=== PATIENT | female | born 1980 | race African-American/Black ===

== ENCOUNTER 2016-11-29 16:03 | Observation (INO) | payer MEDICAID, OTHER ==
[2016-11-29] MEDS ORDERED: Aspirin Low Dose CHEW TAB* 81 MG PO ONE (16:05)
[2016-11-29] MEDS ORDERED: Morphine INJ* 4 MG/ML 1 ML SYRINGE IV ONE (16:17)
[2016-11-29] MEDS ORDERED: Ondansetron INJ* 2 MG/ML VIAL IV ONE (16:17)
[2016-11-29] MEDS ORDERED: NS 0.9% 1000 ML* 1,000 ML IV ONE (16:17)
--- NOTE | 2016-11-29 16:28 | RAD ---
INDICATION: Chest pain COMPARISON: June 13, 2016 TECHNIQUE: An AP portable view obtained at 1615 hours is submitted. FINDINGS: Bones/Soft Tissues: There are no acute bony findings. Cardiomediastinal: The cardiomediastinal silhouette is normal. Lungs: There are no infiltrates. Pleura: There are no pleural effusions. Other: None IMPRESSION: NO ACTIVE DISEASE.
[2016-11-29 16:54] LABS: Hematocrit 35 % (35-47); Hemoglobin 11.5 g/dl (12.0-16.0); Mean Corpuscular HGB Conc 33 g/dl (31-36); Mean Corpuscular Hemoglobin 26 pg (27-31); Mean Corpuscular Volume 80 fL (80-97); Mean Platelet Volume 7 um3 (7.4-10.4); Red Blood Count 4.37 10^6/ul (4.0-5.4); Red Cell Distribution Width 15 % (10.5-15); White Blood Count 19.1 10^3/ul (3.5-10.8)
[2016-11-29 17:08] LABS: ALT 11 U/L (7-52); Albumin 3.2 g/dL (3.2-5.2); Alkaline Phosphatase 127 U/L (34-104); BUN/Creatinine Ratio 16.7 (8-20); Blood Urea Nitrogen 9 mg/dL (6-24); CO2 Carbon Dioxide 26 mmol/L (22-32); Calcium 9.1 mg/dL (8.6-10.3); Chloride 102 mmol/L (101-111); EGFR African American 166.2 (>60); EGFR Non-African American 129.2 (>60); Globulin 4.4 g/dL (2-4); Glucose 187 mg/dL (70-100); Sodium 134 mmol/L (133-145); Total Protein 7.6 g/dL (6.4-8.9)
[2016-11-29 17:10] LABS: Troponin I 0.01 ng/mL (<0.04)
[2016-11-29] MEDS ORDERED: Iodixanol* (CONTRAST) 320 MG/ML 100 ML SDV IV ONE (17:11)
[2016-11-29] MEDS ORDERED: Iodixanol 320 (CONTRAST) 100 ML SDV IV ONE (17:52)
--- NOTE | 2016-11-29 18:08 | RAD ---
INDICATION: Chest pain. Short of breath. Evaluate for pulmonary embolus. COMPARISON: Chest x-ray same date TECHNIQUE: Axial source images were obtained from the thoracic inlet to the hemidiaphragms following administration of 96 mL cc Visipaque 320. The ejection was repeated (injection of 96 mL of Visipaque 320 ) due to suboptimal pulmonary arterial opacification in this patient with a stated weight of [address] angiographic technique was utilized. Coronal and sagittal reconstructed images were acquired. CHEST FINDINGS: Neck/thyroid: The visualized neck to include the thyroid appear normal. Chest wall: There are no acute abnormalities of the bony thorax or chest wall. There is no supraclavicular, infraclavicular, or axillary lymphadenopathy. Lungs : There are no pulmonary parenchymal masses or infiltrates. The pulmonary interstitium appears normal. There are no endobronchial lesions. Cardiomediastinal structures: Pulmonary arterial opacification is suboptimal despite repeat injection. There are no central PE. The heart is normal in size. There is no pericardial effusion. There is no evidence of aortic aneurysm or dissection. There is no mediastinal or hilar adenopathy. The esophagus appears normal. Pleura : There are no pleural-based masses or effusions. Other: None. IMPRESSION: Mildly Limited examination due to patient size. No pulmonary emboli are identified. Lungs clear
--- NOTE | 2016-11-29 19:40 | ED ---
I, DoctorMinal, scribed for Nellie Smith MD on 11/29/16 at 1641 . HPI Chest Pain - HPI Summary HPI Summary: 36 year old female arrived to [facility] c/o migraines for four days and chest pain beginning 45 minutes ago. She reports that her migraines have been constant and worse than normal (she typically takes Fioricet for her migraines but has not taken any recently). She rates her pain as 9/10. Additionally, her chest pain is located in the middle of her chest and radiates to her back and the top of her left arm; she reports SOB as well. She denies any leg or calf pain. She just recently moved here from [place] and lives in a mental health home (PMHx of depression, PTSD, and borderline personality disorder). She has FHx of DM and heart failure before age 55 (mother), heart disease dx at age 36 (mother), blood clots (mother), and pacemaker (father). She also has a PMHx of DM, Migraines, HLD, Vasculitis (for which she regularly takes immunosuppressants), but no PMHx of HTN. She is a regular every day smoker (1/2 ppd). - History of Current Complaint Chief Complaint: EDChestPainROMI Time Seen by Provider: 11/29/16 16:06 Hx Obtained From: Patient Onset/Duration: Started Minutes Ago - chest pain started 45 minutes ago, Started Days Ago - migraines started 4 days ago, Still Present Timing: Constant Initial Severity: Moderate Current Severity: Moderate Pain Intensity: 9 Pain Scale Used: 0-10 Numeric Chest Pain Location: Mid Sternal Chest Pain Radiates To:: Back, Shoulder - left shoulder Alleviating Factor(s): Nothing Associated Signs and Symptoms: Positive: Chest Pain, Headaches - migraines, Shortness of Breath. Negative: Fever, Calf Pain/Swelling - Additional Pertinent History Primary Care Physician: [id number] - Allergy/Home Medications Allergies/Adverse Reactions: Allergies Allergy/AdvReac Type Severity Reaction Status Date / Time Asenapine Allergy Rash Verified 11/29/16 16:12 Bee Venom Allergy Anaphylatic Verified 11/29/16 16:12 Shock Nalbuphine [From Nubain] Allergy Rash Verified 11/29/16 16:12 Paroxetine [From Paxil] Allergy Vomiting Verified 11/29/16 16:12 Sulfa Antibiotics Allergy Unknown Verified 11/29/16 16:12 Reaction Details Sulfamethoxazole Allergy Unknown Verified 11/29/16 16:12 w/Trimethoprim Reaction [From Bactrim] Details Tramadol Allergy Rash Verified 11/29/16 16:12 zepeda Allergy Nausea And Uncoded 11/29/16 16:12 Vomiting PMH/Surg Hx/FS Hx/Imm Hx Endocrine/Hematology History: Reports: Hx Diabetes Cardiovascular History: Reports: Hx Angina, Hx Hypercholesterolemia, Hx Hypertension, Other Cardiovascular Problems/Disorders - vasculitis. tachycardia Denies: Hx Coronary Artery Disease, Hx Myocardial Infarction, Hx Peripheral Vascular Disease, Hx Valvular Heart Disease Respiratory History: Reports: Hx Asthma Denies: Hx Chronic Obstructive Pulmonary Disease (COPD) GI History: Reports: Hx Gastroesophageal Reflux Disease, Other GI Disorders - gastroparesis History: Reports: Other Problems/Disorders - PCOS Musculoskeletal History: Denies: Hx Arthritis, Hx Osteoporosis Sensory History: Reports: Hx Contacts or Glasses Opthamlomology History: Reports: Hx Contacts or Glasses Neurological History: Denies: Hx Headaches, Hx Seizures, Hx Transient Ischemic Attacks (TIA) Psychiatric History: Reports: Hx Anxiety, Hx Depression, Hx Post Traumatic Stress Disorder, Hx Bipolar Disorder, Other Psychiatric Issues/Disorders - Borderline Personality Disorder - Surgical History Surgery Procedure, Year, and Place: Cholecystectomy. Cardiac Catherterization Infectious Disease History: Yes Infectious Disease History: Reports: Hx of Known/Suspected MRSA Denies: Traveled Outside the [place] in Last 30 Days - Family History Known Family History: Positive: Cardiac Disease, Diabetes, Other - blood clots ( mother), pacemaker (father) - Social History Lives: Prison Alcohol Use: Rare Hx Substance Use: No Substance Use Type: Reports: None Smoking Status (MU): Heavy Every Day Tobacco Smoker Type: Cigarettes Amount Used/How Often: 1/2 pack q day Have You Smoked in the Last Year: Yes Review of Systems Negative: Fever Positive: Chest Pain Positive: Shortness Of Breath Positive: Other - No leg pain Positive: Headache - migraines All Other Systems Reviewed And Are Negative: Yes Physical Exam Triage Information Reviewed: Yes Vital Signs On Initial Exam: Initial Vitals Temp Pulse Resp BP Pulse Ox 98.1 F 91 18 111/72 100 11/29/16 16:09 11/29/16 16:09 11/29/16 16:09 11/29/16 16:11/29/16 16:09 Vital Signs Reviewed: Yes Appearance: Positive: Well-Appearing, No Pain Distress Skin: Positive: Warm, Skin Color Reflects Adequate Perfusion, Dry Eyes: Positive: EOMI, RICO ENT: Positive: Pharynx normal, TMs normal Neck: Positive: Supple, Nontender Respiratory/Lung Sounds: Positive: Clear to Auscultation, Breath Sounds Present. Negative: Rales, Rhonchi, Wheezes Cardiovascular: Positive: RRR. Negative: Murmur, Rub, Leg Edema Left, Leg Edema Right Abdomen Description: Positive: Nontender, Soft. Negative: Distended, Guarding Bowel Sounds: Positive: Present Musculoskeletal: Positive: Normal, Strength/ROM Intact. Negative: Edema Left, Edema Right Neurological: Positive: Sensory/Motor Intact, Alert, Oriented to Person Place, Time, CN Intact II-III Psychiatric: Positive: Normal, Affect/Mood Appropriate Diagnostics - Vital Signs Vital Signs Temp Pulse Resp BP Pulse Ox 11/29/16 16:09 98.1 F 91 18 111/72 100 - Laboratory Lab Results: Lab Results 11/29/16 11/29/16 11/29/16 Range/Units 16:45 16:45 16:45 WBC 19.1 H (3.5-10.8) 10^3/ul RBC 4.37 (4.0-5.4) 10^6/ul Hgb 11.5 L (12.0-16.0) g/dl Hct 35 (35-47) % MCV 80 (80-97) fL MCH 26 L (27-31) pg MCHC 33 (31-36) g/dl RDW 15 (10.5-15) % Plt Count 408 (150-450) 10^3/ul MPV 7 L (7.4-10.4) um3 Neut % (Auto) 67.7 (38-83) % Lymph % (Auto) 24.5 L (25-47) % [place] % (Auto) 5.2 (1-9) % Eos % (Auto) 1.4 (0-6) % Baso % (Auto) 1.2 (0-2) % Absolute Neuts (auto) 13.0 H (1.5-7.7) 10^3/ul Absolute Lymphs (auto) 4.7 (1.0-4.8) 10^3/ul Absolute Monos (auto) 1.0 H (0-0.8) 10^3/ul Absolute Eos (auto) 0.3 (0-0.6) 10^3/ul Absolute Basos (auto) 0.2 (0-0.2) 10^3/ul Absolute Nucleated RBC 0.01 10^3/ul Nucleated RBC % 0 Sodium 134 (133-145) mmol/L Potassium TNP Chloride 102 (101-111) mmol/L Carbon Dioxide 26 (22-32) mmol/L Anion Gap TNP BUN 9 (6-24) mg/dL Creatinine 0.54 (0.51-0.95) mg/dL Est GFR ( Amer) 166.2 (>60) Est GFR (Non-Af Amer) 129.2 (>60) BUN/Creatinine Ratio 16.7 (8-20) Glucose 187 H (70-100) mg/dL Lactic Acid 1.5 (0.5-2.0) mmol/L Calcium 9.1 (8.6-10.3) mg/dL Total Bilirubin 0.20 (0.2-1.0) mg/dL AST TNP ALT 11 (7-52) U/L Alkaline Phosphatase 127 H (34-104) U/L Troponin I 0.01 (<0.04) ng/mL Total Protein 7.6 (6.4-8.9) g/dL Albumin 3.2 (3.2-5.2) g/dL Globulin 4.4 H (2-4) g/dL Albumin/Globulin Ratio 0.7 L (1-3) Beta HCG, Quant 0.68 mIU/mL 11/29/16 Range/Units 18:29 WBC (3.5-10.8) 10^3/ul RBC (4.0-5.4) 10^6/ul Hgb (12.0-16.0) g/dl Hct (35-47) % MCV (80-97) fL MCH (27-31) pg MCHC (31-36) g/dl RDW (10.5-15) % Plt Count (150-450) 10^3/ul MPV (7.4-10.4) um3 Neut % (Auto) (38-83) % Lymph % (Auto) (25-47) % Bond % (Auto) (1-9) % Eos % (Auto) (0-6) % Baso % (Auto) (0-2) % Absolute Neuts (auto) (1.5-7.7) 10^3/ul Absolute Lymphs (auto) (1.0-4.8) 10^3/ul Absolute Monos (auto) (0-0.8) 10^3/ul Absolute Eos (auto) (0-0.6) 10^3/ul Absolute Basos (auto) (0-0.2) 10^3/ul Absolute Nucleated RBC 10^3/ul Nucleated RBC % Sodium (133-145) mmol/L Potassium 3.6 Chloride (101-111) mmol/L Carbon Dioxide (22-32) mmol/L Anion Gap BUN (6-24) mg/dL Creatinine (0.51-0.95) mg/dL Est GFR ( Amer) (>60) Est GFR (Non-Af Amer) (>60) BUN/Creatinine Ratio (8-20) Glucose (70-100) mg/dL Lactic Acid (0.5-2.0) mmol/L Calcium (8.6-10.3) mg/dL Total Bilirubin (0.2-1.0) mg/dL AST 11 L ALT (7-52) U/L Alkaline Phosphatase (34-104) U/L Troponin I (<0.04) ng/mL Total Protein (6.4-8.9) g/dL Albumin (3.2-5.2) g/dL Globulin (2-4) g/dL Albumin/Globulin Ratio (1-3) Beta HCG, Quant mIU/mL Result Diagrams: 11/29/16 16:45 11/29/16 18:29 Lab Statement: Any lab studies that have been ordered have been reviewed, and results considered in the medical decision making process. - Radiology CXR Radiology Interpretation Completed By: Radiologist - IMPRESSION: NO ACTIVE DISEASE. - CT Chest CTA CT Interpretation Completed By: Radiologist - IMPRESSION: Mildly Limited examination due to patient size. No pulmonary emboli are identified. Lungs clear - EKG 16:38 Cardiac Rate: NL - 92 bpm EKG Rhythm: Sinus Rhythm - normal ST Segment: Normal Ectopy: None Re-Evaluation - Re-Evaluation First Eval Re-Evaluation Time: 19:21 Change: Unchanged - Discussed care with pt, pt agrees to be admitted Comment: Discussed care with pt, pt agrees to be admitted Chest Pain Course/Dx - Course Course Of Treatment: 36 yo female with known hx of leukocytosis with cp , cta neg talked with Kev about obv for troponins - Diagnoses Provider Diagnoses: Chest pain - Provider Notifications Discussed Care Of Patient With: 19:06 - Discussed care of pt with Dr. Angulo ( Hospitalist); he agrees to admit her. Discharge - Discharge Plan Condition: Stable Disposition: ADMITTED TO [facility] Referrals: No Primary Care Phys,NOPCP [Primary Care Provider] - The documentation as recorded by the Doctor ruelas Tahera accurately reflects the service I personally performed and the decisions made by me, Nellie Smith MD.
--- NOTE | 2016-11-29 19:44 | HP ---
H&P (Free Text) History and Physical: PCP: none Date/Time of Evaluation: 11/29/20161944 CC: chest pain HPI: Mrs Leigh is a 36YO super morbidly obese female HX poorly controlled DM2, high risk cNST 05/2017, HTN, HLD, & active smoking presents with onset of non- exertional sharp and pressure-like chest pain associated with SOB, nausea without emesis, mild light-headedness, mild palpitations, and sweats. There are no known exacerbating factors, getting up & moving does not worsen. The pain medication given in the ED (4mg morphine) helped, but has not entirely relieved the pain. Work up reveals stable vitals. Labs are notable for WBCs of 19k 67% neutrophils , but otherwise reasonably normal. Troponin is 0.01. ECG and CXR are benign. PMedHx DM2 w/ gastroparesis, poorly controlled HTN HLD vasculitis on immunosuppressives super morbidly obese borderline personality disorder migraines IBS anxiety depression PTSD Allergies Asenapine Allergy (Verified 11/29/16 16:12) Rash Bee Venom Allergy (Verified 11/29/16 16:12) Anaphylatic Shock Nalbuphine [From Nubain] Allergy (Verified 11/29/16 16:12) Rash Paroxetine [From Paxil] Allergy (Verified 11/29/16 16:12) Vomiting Sulfa Antibiotics Allergy (Verified 11/29/16 16:12) Unknown Reaction Details triggers vasculitis Sulfamethoxazole w/Trimethoprim [From Bactrim] Allergy (Verified 11/29/16 16:12) Unknown Reaction Details triggers vasculitis Tramadol Allergy (Verified 11/29/16 16:12) Rash zepeda Allergy (Uncoded 11/29/16 16:12) Nausea And Vomiting Ambulatory Orders Acetaminophen TAB* [Tylenol TAB*] 650 mg PO Q4H PRN 06/01/16 Aspirin EC Low Dose* [Ecotrin EC Low Dose 81 MG*] 81 mg PO QAM 06/01/16 Epinephrine [Epipen 2-Amos] 0.3 mg IM ONCE PRN 06/01/16 Insulin Lispro [Humalog Kwikpen] 0 - 100 unit SUBCUT AC 06/01/16 LoraTADine TAB(NF) [Claritin 10 MG TAB(NF)] 10 mg PO QAM 06/01/16 Multiple Vitamins W/ Minerals [Hair Skin and Nails Formu] 1 tab PO QAM 06/01/16 Multivitamins/Minerals TAB* [Theragran/minerals TAB*] 1 tab PO QAM 06/01/16 Levalbuterol HFA INHALER* [Xopenex Hfa Inhaler*] 2 puff INH Q6H PRN #1 mdi 06/03 Metoprolol Tartrate TAB* [Lopressor TAB*] 50 mg PO BID #60 tab 06/03/16 Mycophenolate Mofetil TAB(*) [Cellcept TAB(*)] 1,500 mg PO BID #90 tab 06/03/16 predniSONE TAB* [Deltasone TAB*] 10 mg PO DAILY #30 06/03/16 Atorvastatin* [Lipitor 40 MG*] 40 mg PO 2100 #30 tab 06/10/16 Mirtazapine 45 mg PO BEDTIME #30 tab 06/10/[address] CAP* [Cymbalta CAP*] 90 mg PO BID 11/29/16 Gabapentin CAP(*) [Neurontin 300 CAP(*)] 600 mg PO TID 11/29/16 Haldol TAB* 1 mg PO Q6H PRN 11/29/16 Lantus(*) 60 unit SUBCUT QAM 11/29/16 Lantus(*) 60 unit SUBCUT QPM 11/29/16 Pantoprazole TAB (NF) 40 tab PO DAILY 11/29/16 Prazosin CAP* [Minipress CAP*] 5 mg PO BEDTIME 11/29/16 cloNIDine TAB* 0.1 mg PO BID PRN 11/29/16 PSurgHx cholecystectomy SocHx: 1/4PPD cigarettes, minimal alcohol, denies recreational drugs; moved back to a assisted in the area 3 days ago to be closer to her family; full code status FamHx: Mother: CHF; Father: pacemaker ROS: no F/C, rash, cough, congestion, B/U/F of urine, otherwise reviewed and all were negative Constitutional: NAD, normally developed, super morbidly obese white female vitals: Vital Signs Temp 36.7 C 11/29/16 16:09 Pulse 86 11/29/16 19:36 Resp 16 11/29/16 19:36 BP 121/71 11/29/16 19:36 Pulse Ox 98 11/29/16 19:36 Intake & Output 11/28/16 11/29/16 11/29/16 23:59 11:59 23:59 Weight 167.829 kg HEENM: atraumatic; sclera/conjunctiva: non-icteric/clear; hearing: clinically intact; oropharynx: clear, mucosa moist Neck: soft tissue: non-tender; thyroid: normal Pulmonary: clear to auscultation bilaterally, good aeration, no accessory muscle use CV: RR/RR, normal S1S2, no carotid bruit, no jugular venous distention, 2+ B DP/ PT, no edema Abdominal: soft, non-distended, non-tender, no rebound/guarding/rigidity, normoactive bowel sounds, no hepatosplenomegaly or masses, no costovertebral angle tenderness Musculoskeletal: general: grossly intact; gait: stable Integumental: normal appearance and texture of exposed skin Psychiatric orientation: AA&O to PPS affect: calm mood: cooperative eye contact: fair content: reliable responses: timely insight: good Testing: Lab Results 11/29/16 11/29/16 11/29/16 Range/Units 16:45 16:45 16:45 WBC 19.1 H (3.5-10.8) 10^3/ul RBC 4.37 (4.0-5.4) 10^6/ul Hgb 11.5 L (12.0-16.0) g/dl Hct 35 (35-47) % MCV 80 (80-97) fL MCH 26 L (27-31) pg MCHC 33 (31-36) g/dl RDW 15 (10.5-15) % Plt Count 408 (150-450) 10^3/ul MPV 7 L (7.4-10.4) um3 Neut % (Auto) 67.7 (38-83) % Lymph % (Auto) 24.5 L (25-47) % [place] % (Auto) 5.2 (1-9) % Eos % (Auto) 1.4 (0-6) % Baso % (Auto) 1.2 (0-2) % Absolute Neuts (auto) 13.0 H (1.5-7.7) 10^3/ul Absolute Lymphs (auto) 4.7 (1.0-4.8) 10^3/ul Absolute Monos (auto) 1.0 H (0-0.8) 10^3/ul Absolute Eos (auto) 0.3 (0-0.6) 10^3/ul Absolute Basos (auto) 0.2 (0-0.2) 10^3/ul Absolute Nucleated RBC 0.01 10^3/ul Nucleated RBC % 0 Sodium 134 (133-145) mmol/L Potassium TNP Chloride 102 (101-111) mmol/L Carbon Dioxide 26 (22-32) mmol/L Anion Gap TNP BUN 9 (6-24) mg/dL Creatinine 0.54 (0.51-0.95) mg/dL Est GFR ( Amer) 166.2 (>60) Est GFR (Non-Af Amer) 129.2 (>60) BUN/Creatinine Ratio 16.7 (8-20) Glucose 187 H (70-100) mg/dL Lactic Acid 1.5 (0.5-2.0) mmol/L Calcium 9.1 (8.6-10.3) mg/dL Total Bilirubin 0.20 (0.2-1.0) mg/dL AST TNP ALT 11 (7-52) U/L Alkaline Phosphatase 127 H (34-104) U/L Troponin I 0.01 (<0.04) ng/mL Total Protein 7.6 (6.4-8.9) g/dL Albumin 3.2 (3.2-5.2) g/dL Globulin 4.4 H (2-4) g/dL Albumin/Globulin Ratio 0.7 L (1-3) Beta HCG, Quant 0.68 mIU/mL 11/29/16 Range/Units 18:29 WBC (3.5-10.8) 10^3/ul RBC (4.0-5.4) 10^6/ul Hgb (12.0-16.0) g/dl Hct (35-47) % MCV (80-97) fL MCH (27-31) pg MCHC (31-36) g/dl RDW (10.5-15) % Plt Count (150-450) 10^3/ul MPV (7.4-10.4) um3 Neut % (Auto) (38-83) % Lymph % (Auto) (25-47) % [place] % (Auto) (1-9) % Eos % (Auto) (0-6) % Baso % (Auto) (0-2) % Absolute Neuts (auto) (1.5-7.7) 10^3/ul Absolute Lymphs (auto) (1.0-4.8) 10^3/ul Absolute Monos (auto) (0-0.8) 10^3/ul Absolute Eos (auto) (0-0.6) 10^3/ul Absolute Basos (auto) (0-0.2) 10^3/ul Absolute Nucleated RBC 10^3/ul Nucleated RBC % Sodium (133-145) mmol/L Potassium 3.6 Chloride (101-111) mmol/L Carbon Dioxide (22-32) mmol/L Anion Gap BUN (6-24) mg/dL Creatinine (0.51-0.95) mg/dL Est GFR ( Amer) (>60) Est GFR (Non-Af Amer) (>60) BUN/Creatinine Ratio (8-20) Glucose (70-100) mg/dL Lactic Acid (0.5-2.0) mmol/L Calcium (8.6-10.3) mg/dL Total Bilirubin (0.2-1.0) mg/dL AST 11 L ALT (7-52) U/L Alkaline Phosphatase (34-104) U/L Troponin I (<0.04) ng/mL Total Protein (6.4-8.9) g/dL Albumin (3.2-5.2) g/dL Globulin (2-4) g/dL Albumin/Globulin Ratio (1-3) Beta HCG, Quant mIU/mL ECG, personally reviewed: NSR rate 92, no ischemia CXR, personally reviewed: IMPRESSION: NO ACTIVE DISEASE. CTA chest, personally reviewed: IMPRESSION: Mildly Limited examination due to patient size. No pulmonary emboli are identified. Lungs clear Impression: 36F HX super morbid obesity, poorly controlled DM2, HTN, HLD, & active smoking presents with chest pain for r/o ACS DIAGNOSIS & PLAN Primary chest pain r/o ACS : aspirin : metoprolol : 1" nitropaste : supplemental oxygen : given high risk cNST in May 2016, will not repeat : consider cardiology evaluation in AM for further recommendations : supportive care Secondary DM2 w/ gastroparesis : NPO for potential tests in AM : basal/correctional protocol; decrease glargine to 40 BID while NPO : update A1c HTN : continue metoprolol HLD : continue atorvastatin vasculitis : continue mycophenolate mofetil & prednisone super morbidly obese : no acute issues borderline personality disorder : continue haloperidol anxiety : continue mirtazapine depression : continue duloxetine GERD : continue pantoprazole Admission Rational: CDU observation for r/o ACS DVTp: heparin SQ & SCDs Code Status: full
[2016-11-29] MEDS ORDERED: cloNIDine TAB* 0.1 MG PO PRN (20:26)
[2016-11-29] MEDS ORDERED: Haloperidol TAB* 1 MG PO PRN (20:26)
[2016-11-29] MEDS ORDERED: Albuterol 2.5 MG/3 ML NEB.SOL* (0.083%) INH PRN (20:39)
[2016-11-29] MEDS ORDERED: Ondansetron INJ* 2 MG/ML VIAL IV PRN (20:39)
[2016-11-29] MEDS ORDERED: Melatonin (NF) 3 MG TAB PO PRN (20:39)
[2016-11-29] MEDS ORDERED: Nicotine Inhaler* 10 MG AMP INH PRN (20:39)
[2016-11-29] MEDS ORDERED: traMADol TAB* 50 MG PO PRN (20:39)
[2016-11-29] MEDS ORDERED: Nitroglycerin 2% OINT* 1 GM PAK TOPICAL SCH (21:00)
[2016-11-29] MEDS ORDERED: Prazosin CAP* 5 MG PO SCH (21:00)
[2016-11-29] MEDS ORDERED: Atorvastatin* 40 MG TAB PO SCH (21:00)
[2016-11-29] MEDS ORDERED: Heparin DRIP 25,000 UNITS(*) 25,000 UNITS/500 ML BAG IVPB SCH (21:00)
[2016-11-29] MEDS ORDERED: Heparin VIAL(*) 5000 UNITS/ML VIAL (FIVE THOUSAND) SUBCUT SCH (22:00)
[2016-11-29] MEDS ORDERED: Metoprolol Succinate XL TAB* 25 MG PO ONE (22:00)
[2016-11-29] MEDS: Morphine INJ* 2 MG/ML 1 ML SYRINGE IV PRN ×2 (22:26→23:18)
--- NOTE | 2016-11-29 22:29 | PN ---
Progress Note - Progress Note Note: Nursing called reporting troponin increased from 0.01 to 0.33 & patient reporting 8/10 chest pain. Repeat ECG benign. Has received aspirin, metoprolol, & heparin GTT is being started now. Will change nitropaste to nitroGTT and transfer to ICU for closer monitoring.
[2016-11-29] MEDS: Docusate CAP* 100 MG PO SCH (22:35)
[2016-11-29] MEDS: Insulin LISPRO* 1 UNITS UNIT SUBCUT SCH (22:36)
[2016-11-29] MEDS: DULoxetine DR CAP* 30 MG CAP.DR PO SCH (22:40)
[2016-11-29] MEDS: Gabapentin CAP(*) 300 MG PO SCH (22:40)
[2016-11-29] MEDS: Insulin GLARGINE(*) 1 UNITS UNIT SUBCUT SCH (22:41)
[2016-11-29] MEDS: Metoprolol Tartrate TAB* 50 mg PO SCH (22:43)
[2016-11-29] MEDS: Mirtazapine TAB* 15 MG PO SCH ×2 (22:43→22:54)
[2016-11-29] MEDS: Mycophenolate Mofetil TAB(*) 500 MG PO SCH (22:50)
[2016-11-29] MEDS ORDERED: nitroGLYCERIN DRIP* 250 ML IV SCH (23:00)
[2016-11-29] MEDS: oxyCODONE TAB* 5 MG TAB PO PRN (23:18)
[2016-11-30] MEDS: Mirtazapine TAB* 15 MG PO SCH (00:30)
[2016-11-30] MEDS: NS 0.9% 1000 ML* 1,000 ML IV SCH ×2 (00:31→07:28)
[2016-11-30] MEDS ORDERED: CMCS Melatonin (NF) 3 MG TAB PO PRN (01:13)
[2016-11-30 02:02] LABS: Add Diff/Slide Review? Slide Review Added; Comments Flag Yes; Hematocrit 32 % (35-47); Hemoglobin 10.1 g/dl (12.0-16.0); Mean Corpuscular HGB Conc 32 g/dl (31-36); Mean Corpuscular Hemoglobin 26 pg (27-31); Mean Corpuscular Volume 81 fL (80-97); Mean Platelet Volume 7 um3 (7.4-10.4); Red Blood Count 3.89 10^6/ul (4.0-5.4); Red Cell Distribution Width 15 % (10.5-15); White Blood Count 18.8 10^3/ul (3.5-10.8)
[2016-11-30] MEDS ORDERED: Nitro Patch/OINT Remove PATCH OFF SCH (03:00)
[2016-11-30] MEDS: Morphine INJ* 2 MG/ML 1 ML SYRINGE IV PRN ×3 (03:45→12:03)
[2016-11-30] MEDS: Insulin LISPRO* 1 UNITS UNIT SUBCUT SCH ×4 (05:55→14:47)
[2016-11-30] MEDS: oxyCODONE TAB* 5 MG TAB PO PRN ×2 (06:29→14:35)
[2016-11-30] MEDS: Docusate CAP* 100 MG PO SCH (08:01)
[2016-11-30] MEDS: DULoxetine DR CAP* 30 MG CAP.DR PO SCH (08:02)
[2016-11-30] MEDS: Gabapentin CAP(*) 300 MG PO SCH ×2 (08:03→14:35)
[2016-11-30] MEDS: Metoprolol Tartrate TAB* 50 mg PO SCH (08:04)
[2016-11-30] MEDS: Insulin GLARGINE(*) 1 UNITS UNIT SUBCUT SCH (08:05)
[2016-11-30 08:17] VITALS: BP 127/82
[2016-11-30] MEDS: Mycophenolate Mofetil TAB(*) 500 MG PO SCH (08:49)
[2016-11-30] MEDS ORDERED: Omeprazole CAP* 20 MG PO SCH (09:00)
[2016-11-30] MEDS ORDERED: Aspirin TAB* 325 MG PO SCH (09:00)
[2016-11-30] MEDS ORDERED: Cetirizine* 10 MG TAB PO SCH (09:00)
[2016-11-30] MEDS ORDERED: Aspirin EC Low Dose* 81 MG TAB.EC PO SCH (09:00)
[2016-11-30] MEDS ORDERED: predniSONE TAB* 10 MG PO SCH (09:00)
[2016-11-30 10:15] LABS: Hematocrit 33 % (35-47); Hemoglobin 10.5 g/dl (12.0-16.0); Mean Corpuscular HGB Conc 32 g/dl (31-36); Mean Corpuscular Hemoglobin 26 pg (27-31); Mean Corpuscular Volume 83 fL (80-97); Mean Platelet Volume 7 um3 (7.4-10.4); Red Blood Count 4.04 10^6/ul (4.0-5.4); Red Cell Distribution Width 15 % (10.5-15); White Blood Count 15.3 10^3/ul (3.5-10.8)
[2016-11-30] MEDS ORDERED: Atropine SYRINGE* 0.1 MG/ML 10 ML SYRINGE (1 MG) ONE (12:43)
[2016-11-30] MEDS ORDERED: Metoprolol Tartrate IV* 1 MG/ML 5 ML VIAL ONE (12:43)
[2016-11-30] MEDS ORDERED: DOBUTamine 2000 MCG/ML IVPREMX 500 MG/250 ML BAG IV ONE (12:44)
[2016-11-30] MEDS ORDERED: Perflutren Lipid Microsphere* 1.1 MG/1.5 ML VIAL IV ONE (13:00)
--- NOTE | 2016-11-30 14:57 | PN ---
Subjective Date of Service: 11/30/16 Interval History: pt reports intermittent reflux symptoms "causing chest pain". She reports frequent GERD symptoms, stating she has a hx of gastritis in the past. Denies SOB. No fevers or chills. Agrees to DC to home and states she will f/u with new pCP and [facility] Objective Active Medications: Albuterol (Ventolin 2.5 Mg/3 Ml Neb.Smita*) 2.5 mg INH Q2H PRN PRN Reason: SOB/WHEEZING Aspirin (Aspirin Ec Low Dose*) 81 mg PO QAM [facility] Last Admin: 11/30/16 08:04 Dose: 81 mg Aspirin (Aspirin Tab*) 325 mg PO DAILY [facility] Last Admin: 11/30/16 08:02 Dose: 325 mg Atorvastatin Calcium (Lipitor*) 40 mg PO 2100 [facility] Last Admin: 11/29/16 22:40 Dose: 40 mg Cetirizine HCl (Zyrtec*) 10 mg PO QAM [facility] Last Admin: 11/30/16 08:03 Dose: 10 mg Clonidine HCl (Catapres Tab*) 0.1 mg PO BID PRN PRN Reason: ANXIETY Docusate Sodium (Colace Cap*) 200 mg PO BID [facility] Last Admin: 11/30/16 08:01 Dose: 200 mg Duloxetine HCl (Cymbalta Cap*) 90 mg PO BID [facility] Last Admin: 11/30/16 08:02 Dose: 90 mg Gabapentin (Neurontin Cap(*)) 600 mg PO TID [facility] Last Admin: 11/30/16 14:35 Dose: 600 mg Haloperidol (Haldol Tab*) 1 mg PO Q6H PRN PRN Reason: ANXIETY Sodium Chloride (Ns 0.9% 1000 Ml*) 1,000 mls @ 75 mls/hr IV PER RATE [facility] Last Admin: 11/30/16 07:28 Dose: 75 mls/hr Insulin Glargine (Lantus(*)) 40 units SUBCUT BID [facility] Stop: 11/30/16 20:00 Last Admin: 11/30/16 08:05 Dose: 40 unit Insulin Human Lispro (Humalog*) 0 units SUBCUT Q4HR [facility] PRN Reason: Protocol Last Admin: 11/30/16 14:47 Dose: 9 units Melatonin (Melatonin (Nf)) 3 mg PO BEDTIME PRN; Protocol PRN Reason: Sleep Metoprolol Tartrate (Lopressor Tab*) 50 mg PO BID [facility] Last Admin: 11/30/16 08:04 Dose: 50 mg Mirtazapine (Remeron Tab*) 45 mg PO BEDTIME [facility] Last Admin: 11/30/16 00:30 Dose: 45 mg Morphine Sulfate (Morphine Inj (Syringe)*) 2 mg IV Q4H PRN PRN Reason: PAIN - MILD Last Admin: 11/30/16 12:03 Dose: 2 mg Mycophenolate Mofetil (Cellcept Tab(*)) 1,500 mg PO BID [facility] Last Admin: 11/30/16 08:49 Dose: 1,500 mg Nicotine (Nicotine Inhaler*) 10 mg INH Q2H PRN PRN Reason: CRAVING Omeprazole (Prilosec Cap*) 20 mg PO DAILY [facility] Last Admin: 11/30/16 08:02 Dose: 20 mg Ondansetron HCl (Zofran Inj*) 4 mg IV Q6H PRN PRN Reason: NAUSEA Oxycodone HCl (Roxycodone Tab*) 5 mg PO Q4H PRN PRN Reason: PAIN Last Admin: 11/30/16 14:35 Dose: 5 mg Prazosin HCl (Minipress Cap*) 5 mg PO BEDTIME [facility] Last Admin: 11/29/16 22:50 Dose: 5 mg Prednisone (Deltasone Tab*) 10 mg PO DAILY [facility] Last Admin: 11/30/16 08:02 Dose: 10 mg Tramadol HCl (Ultram*) 50 mg PO Q6H PRN PRN Reason: PAIN Vital Signs 11/30/16 11/30/16 11/30/16 08:00 08:03 08:59 Temperature 98.3 F Pulse Rate 88 Respiratory 18 18 18 Rate Blood Pressure 127/82 (mmHg) O2 Sat by Pulse 93 Oximetry 11/30/16 11/30/16 11/30/16 10:03 12:03 13:03 Temperature Pulse Rate Respiratory 18 18 18 Rate Blood Pressure (mmHg) O2 Sat by Pulse Oximetry 11/30/16 14:35 Temperature Pulse Rate Respiratory 18 Rate Blood Pressure (mmHg) O2 Sat by Pulse Oximetry Oxygen Devices in Use Now: None Appearance: morbidly obese female laying in bed in NAD. A+O x3 Eyes: No Scleral Icterus, PERRLA Ears/Nose/Mouth/Throat: NL Teeth, Lips, Gums, Mucous Membranes Moist Neck: NL Appearance and Movements; NL JVP Respiratory: Symmetrical Chest Expansion and Respiratory Effort, Clear to Auscultation Cardiovascular: NL Sounds; No Murmurs; No JVD, RRR, No Edema Abdominal: NL Sounds; No Tenderness; No Distention, - - morbid obese Extremities: No Edema, No Clubbing, Cyanosis Neurological: Alert and Oriented x 3, NL Sensation, NL Gait, NL Muscle Strength and Tone Result Diagrams: 11/30/16 07:43 11/30/16 07:43 Additional Lab and Data: Lab Results 11/29/16 11/29/16 11/29/16 Range/Units 16:45 16:45 16:45 WBC 19.1 H (3.5-10.8) 10^3/ul RBC 4.37 (4.0-5.4) 10^6/ul Hgb 11.5 L (12.0-16.0) g/dl Hct 35 (35-47) % MCV 80 (80-97) fL MCH 26 L (27-31) pg MCHC 33 (31-36) g/dl RDW 15 (10.5-15) % Plt Count 408 (150-450) 10^3/ul MPV 7 L (7.4-10.4) um3 Neut % (Auto) 67.7 (38-83) % Lymph % (Auto) 24.5 L (25-47) % Chambers % (Auto) 5.2 (1-9) % Eos % (Auto) 1.4 (0-6) % Baso % (Auto) 1.2 (0-2) % Absolute Neuts (auto) 13.0 H (1.5-7.7) 10^3/ul Absolute Lymphs (auto) 4.7 (1.0-4.8) 10^3/ul Absolute Monos (auto) 1.0 H (0-0.8) 10^3/ul Absolute Eos (auto) 0.3 (0-0.6) 10^3/ul Absolute Basos (auto) 0.2 (0-0.2) 10^3/ul Absolute Nucleated RBC 0.01 10^3/ul Nucleated RBC % 0 Sodium 134 (133-145) mmol/L Potassium TNP Chloride 102 (101-111) mmol/L Carbon Dioxide 26 (22-32) mmol/L Anion Gap TNP BUN 9 (6-24) mg/dL Creatinine 0.54 (0.51-0.95) mg/dL Est GFR ( Amer) 166.2 (>60) Est GFR (Non-Af Amer) 129.2 (>60) BUN/Creatinine Ratio 16.7 (8-20) Glucose 187 H (70-100) mg/dL Lactic Acid 1.5 (0.5-2.0) mmol/L Calcium 9.1 (8.6-10.3) mg/dL Total Bilirubin 0.20 (0.2-1.0) mg/dL AST TNP ALT 11 (7-52) U/L Alkaline Phosphatase 127 H (34-104) U/L Troponin I 0.01 (<0.04) ng/mL Total Protein 7.6 (6.4-8.9) g/dL Albumin 3.2 (3.2-5.2) g/dL Globulin 4.4 H (2-4) g/dL Albumin/Globulin Ratio 0.7 L (1-3) Beta HCG, Quant 0.68 mIU/mL 11/29/16 Range/Units 18:29 WBC (3.5-10.8) 10^3/ul RBC (4.0-5.4) 10^6/ul Hgb (12.0-16.0) g/dl Hct (35-47) % MCV (80-97) fL MCH (27-31) pg MCHC (31-36) g/dl RDW (10.5-15) % Plt Count (150-450) 10^3/ul MPV (7.4-10.4) um3 Neut % (Auto) (38-83) % Lymph % (Auto) (25-47) % Chambers % (Auto) (1-9) % Eos % (Auto) (0-6) % Baso % (Auto) (0-2) % Absolute Neuts (auto) (1.5-7.7) 10^3/ul Absolute Lymphs (auto) (1.0-4.8) 10^3/ul Absolute Monos (auto) (0-0.8) 10^3/ul Absolute Eos (auto) (0-0.6) 10^3/ul Absolute Basos (auto) (0-0.2) 10^3/ul Absolute Nucleated RBC 10^3/ul Nucleated RBC % Sodium (133-145) mmol/L Potassium 3.6 Chloride (101-111) mmol/L Carbon Dioxide (22-32) mmol/L Anion Gap BUN (6-24) mg/dL Creatinine (0.51-0.95) mg/dL Est GFR ( Amer) (>60) Est GFR (Non-Af Amer) (>60) BUN/Creatinine Ratio (8-20) Glucose (70-100) mg/dL Lactic Acid (0.5-2.0) mmol/L Calcium (8.6-10.3) mg/dL Total Bilirubin (0.2-1.0) mg/dL AST 11 L ALT (7-52) U/L Alkaline Phosphatase (34-104) U/L Troponin I (<0.04) ng/mL Total Protein (6.4-8.9) g/dL Albumin (3.2-5.2) g/dL Globulin (2-4) g/dL Albumin/Globulin Ratio (1-3) Beta HCG, Quant mIU/mL Microbiology and Other Data: Microbiology 11/29/16 22:25 Nasal Screen MRSA (PCR)(MIRIAM) - Final Nasal Mrsa Negative Assess/Plan/Problems-Billing Assessment: 36 yo female with a PMH of morbid obesity, poorly controlled DM2, HTN, HLD, current tobacco abuse who presented with c/o chest pain. - Patient Problems (1) Chest pain Comment: Atypical. Suspect GERD symptoms. CXR WNL, EKG WNL. Trop neg x 3. Underwent dobutamine stress echo with Dr. Jhaveri which was a normal exam. Atorvastatin 40 mg and ASA 81 mg daily. (2) Diabetes Comment: - poorly controlled at home. HgA1C 11.6. Referral to [facility] (3) Gastroparesis due to DM Comment: - per pt allergic to Reglan (4) Anxiety and depression Comment: Personality disorder. Continue home psychiatric medications Question if pt is drug seeking (5) History of vasculitis Comment: Chronically treated with prednisone/Cellcept Continue current treatment (6) Morbid obesity Comment: BMI 60 (7) DVT prophylaxis (8) Full code status Status and Disposition: Plan for DC to home
[2016-11-30] MEDS ORDERED: Atropine SYRINGE* 0.1 MG/ML 10 ML SYRINGE (1 MG) IV ONE (15:00)
[2016-11-30] MEDS ORDERED: Sucralfate TAB* 1 GM PO ONE (15:16)
--- NOTE | 2016-12-01 02:03 | CONS ---
CARDIOLOGY CONSULTATION: DATE OF CONSULT: 11/30/16 INDICATION FOR CONSULTATION: Chest pain. HISTORY OF PRESENT ILLNESS: The patient is a 36-year-old female with a history of poorly controlled diabetes, history of smoking who came to the emergency room because of chest pain. The patient states that she had the onset of pressure-like pain in the center of her chest associated with shortness of breath and nausea. She denied any vomiting associated. She denied any lightheadedness, dizziness, or syncope. The patient states that the symptoms lasted for approximately an hour before arrival to the emergency room. On arrival to the emergency room, she had this discomfort. She rated it as approximately 4/10. Her initial EKG showed normal sinus rhythm with no ST-T wave changes. The patient was admitted to the hospital in May of 2016 with similar symptoms of chest pain. At that time, a chemical nuclear stress test showed no clear evidence of ischemia; however, was a very difficult study to interpret because of the patient's body habitus. The patient states that she has moved here within the last 3 days and has been under tremendous amount of stress. The patient states that her discomfort did not change at all with exertion. She denied any orthopnea. PAST MEDICAL HISTORY: Significant for diabetes with poor control. She has a history of gastroparesis, hypertension, hyperlipidemia, morbid obesity, irritable bowel syndrome, anxiety, depression. PAST SURGICAL HISTORY: Cholecystectomy many years ago. OUTPATIENT MEDICATIONS: 1. Aspirin 81 mg a day. 2. EpiPen as directed. 3. Insulin lispro 100 units daily. 4. Claritin 10 mg a day. 5. Multivitamin a day. 6. Xopenex inhaler twice a day. 7. Metoprolol 50 mg b.i.d. 8. Prednisone 10 mg a day. 9. Atorvastatin 40 mg a day. 10. Cymbalta 90 mg twice a day. 11. Gabapentin 3 times a day. 12. Haldol 1 mg as needed. 13. Pantoprazole 40 mg a day. 14. Prazosin 5 mg q.h.s. 15. Clonidine 0.1 mg twice a day. ALLERGIES: She is intolerant of PAXIL, NUBAIN, SULFA MEDICATIONS, TRAMADOL. She does have a real allergy to BEE STINGS. SOCIAL HISTORY: Again, the patient just moved here a couple of days ago. She is a 63-mtsxkyfjf-o-day smoker. Rare alcohol intake. She does not get any regular exercise. Mother has a history of coronary artery disease. She had a first myocardial infarction at 42 years old. Father has a history of a pacemaker. PHYSICAL EXAMINATION: Height is 5 feet 7 inches, weight 385 pounds, temperature 98.3, heart rate is 88, blood pressure 127/82, respiratory rate is 18, oxygen saturation 93% on room air. Sclerae anicteric. Oropharynx is pink without erythema. Carotids are 2+ without bruits. JVD is normal. Thyroid is normal. Cardiac Exam: Distant heart sounds, S1, S2 without any obvious murmurs , rubs, or gallops. PMI is difficult to assess. Lungs are clear to auscultation bilaterally. Percussion is difficult to assess on this patient. Abdomen is obese, soft, nontender, and nondistended with normoactive bowel sounds. Extremities show 1+ edema. She has 2+ pulses throughout. The patient is awake, alert, and oriented. She moves all 4 extremities equally. LABORATORY STUDIES: White count is 15.3, hemoglobin 10, hematocrit 33, platelet count 350. Chemistries are all within normal limits. Initial troponin level was 0.01. Second troponin was reported at 0.33. Her third troponin was reported at 0. The second troponin done on November 29 at 10:30 at night was redrawn and redone and the reports were that the level was 0.01. EKG demonstrates normal sinus rhythm and no evidence of ST-T wave changes. Chest x- ray is unremarkable. She did have a CTA of her chest, which showed no evidence of a dissection and no evidence of pulmonary embolism. The patient did undergo a dobutamine stress echo cardiogram with echo contrast enhancement, which demonstrated normal perfusion throughout the myocardium. No evidence of ischemia with dobutamine infusion. IMPRESSION: This is a 36-year-old female with a history of diabetes, hypertension, and morbid obesity who was admitted to the hospital with chest pain. The patient ruled out for myocardial infarction. Her EKG showed no ischemic changes. Her dobutamine stress echo shows no evidence of ischemia. She had no EKG changes with the dobutamine infusion. PLAN: At this point, I am not convinced that the patient's chest pain is cardiac in origin. Her CTA of her chest shows no evidence of a dissection or pulmonary embolism. The patient will continue to work with the Hospitalist to determine the cause of her chest pain. At this point, I do not think any other cardiac testing is necessary. I do not think any changes in medications are necessary. This was discussed with Corina Mckeon NP, hospitalist service. [id number]/[facility] #: [id number] MTDD
--- NOTE | 2016-12-01 13:26 | DS ---
DISCHARGE SUMMARY: DATE OF ADMISSION: 11/29/16 DATE OF DISCHARGE: 11/30/16 PROVIDER: Dash Whitman NP. ATTENDING PHYSICIAN: Dr. Angulo *(report dictated by Dash Whitman NP). PRIMARY CARE PROVIDER: mariano Roldan PCP. HOSPITAL STATUS: Observation. PRIMARY DIAGNOSIS: Atypical chest pain, noncardiac, suspect gastroesophageal reflux disease symptoms. SECONDARY DIAGNOSES: 1. Insulin-dependent type 2 diabetes with gastroparesis, poorly controlled. 2. Hypertension. 3. Hyperlipidemia. 4. Vasculitis, on immunosuppressives. 5. Super morbidly obese. 6. Borderline personality disorder. 7. Anxiety/depression. 8. Migraines. 9. Irritable bowel syndrome. 10. Post-traumatic stress disorder. 11. History of gastritis per the patient. DISCHARGE MEDICATIONS: 1. Clonidine 0.1 mg p.o. b.i.d. p.r.n. 2. Lantus 60 units subcu b.i.d. 3. Haldol 1 mg p.o. q.6 hours p.r.n. 4. Protonix 40 mg p.o. daily. 5. Lipitor 40 mg p.o. daily. 6. Aspirin EC low dose 81 mg p.o. q.a.m. 7. Acetaminophen 650 mg p.o. q.4 hours p.r.n. 8. EpiPen 0.2 mg IM once p.r.n. 9. Cymbalta 90 mg p.o. b.i.d. 10. Neurontin 600 mg p.o. t.i.d. 11. Mirtazapine 45 mg p.o. at bedtime. 12. Metoprolol tartrate 50 mg p.o. b.i.d. 13. Claritin 10 mg p.o. q.a.m. 14. Xopenex HFA inhaler 2 puffs INH q.6 hours p.r.n. 15. Insulin lispro/Humalog KwikPen 0 to 100 units subcu a.c., see instructions. 16. CellCept 1500 mg p.o. b.i.d. 17. Multivitamin with mineral 1 tab p.o. q.a.m. 18. Minipress 5 mg p.o. at bedtime. 19. Prednisone 10 mg p.o. daily. 20. New medication at discharge: Carafate 1 g p.o. q.i.d. HISTORY OF PRESENT ILLNESS AND HOSPITAL COURSE: Please see history and physical by Dr. Barber for full admission details, but in summary, this is a 36-year-old female who presented to the emergency department on 11/29/16 with complaint of chest pain. The patient was admitted to the hospitalist service to the telemetry unit. She had trending of troponins which were all 0.01, 0.02 , and 0.00. Her EKGs were trended which showed sinus rhythm with no acute ischemia. The patient also underwent a chest thorax CTA which was "mildly limited exam due to the patient's size. No pulmonary emboli are identified. Lungs are clear." The patient also underwent a dobutamine stress echo this morning with sports attorney, Dr. Jhaveri, with whom I spoke to, stated the test was normal. I suspect the patient's chest pain is secondary to GERD-like symptoms. I started the patient on Carafate. The patient has been set up with a new primary care provider and recommendation for the new PCP to refer the patient to the [facility]. As per patient, she has a history of gastritis in the past and it has been many years since she has had an endoscopy. The patient is noted to have uncontrolled diabetes as well as I did speak to the patient not only about her diabetes and her high hemoglobin A1c, but her weight as well as her multiple chronic comorbidities. The patient has been referred to [facility] and she shows interest in following up with this. The patient was noted to have some softer blood pressures throughout hospitalization in the 80s and 90s; however, looking back, it appears that she was receiving morphine IV overnight. When she stopped receiving this, her blood pressures came up. I question if the patient was possibly drug seeking; however, I cannot be certain. DISCHARGE PLAN: 1. The patient is stable for discharge to home. The patient currently lives in a fci. 2. Follow up with Dr. Kiran Hebert on 12/02/16 at 1:30 p.m. 3. Referral to [facility]. The patient was instructed that she needs to call for an initial appointment. 4. I think the patient would benefit from an upper endoscopy and referral to GI. TIME SPENT: Approximately 60 minutes was spent on this discharge. DASH WHITMAN NP CC: Dr. Kiran Hebert* [id number]/[facility] #: [id number] [facility]
== END 2016-11-30 17:15 | disposition home or self-care (01) ==
LOC: ED 16:03 → MEDTELE 19:12 → ICU 23:00 → MEDTELE 11-30 02:41
PROVIDERS: ADMIT Internal Medicine; ATTEND Internal Medicine
DX: R07.89 Other chest pain (principal); E11.43 Type 2 diabetes mellitus with diabetic autonomic (poly)neuropathy; E11.65 Type 2 diabetes mellitus with hyperglycemia; K31.84 Gastroparesis; Z79.4 Long term (current) use of insulin; I10 Essential (primary) hypertension; E78.5 Hyperlipidemia, unspecified; I77.6 Arteritis, unspecified; E66.01 Morbid (severe) obesity due to excess calories; Z68.44 Body mass index [BMI] 60.0-69.9, adult; F60.3 Borderline personality disorder; F41.9 Anxiety disorder, unspecified; F32.9 Major depressive disorder, single episode, unspecified; G43.909 Migraine, unspecified, not intractable, without status migrainosus; K58.9 Irritable bowel syndrome, unspecified; F43.10 Post-traumatic stress disorder, unspecified; Z79.899 Other long term (current) drug therapy; Z88.2 Allergy status to sulfonamides; Z88.8 Allergy status to other drugs, medicaments and biological substances; F17.210 Nicotine dependence, cigarettes, uncomplicated; Z32.02 Encounter for pregnancy test, result negative
CPT/HCPCS: 36415; 71010; 71275; 80053; 82947; 83036; 83605; 84484; 84520; 84702; 85025; 85730; 87641; 93005; 93350; 96361; 96374; 96375; 96376; 99283; 99406; A9270-GY; G0378; J0461; J1250; J2270; J2405; J7512; Q9967

== ENCOUNTER 2016-12-23 10:48 | Emergency (ER) | payer OTHER ==
[2016-12-23] MEDS ORDERED: Ketorolac INJ* 60 MG/2 ML VIAL IM ONE (11:14)
--- NOTE | 2016-12-23 11:34 | ED ---
Lower Extremity - HPI Summary HPI Summary: 36F w/ PMH of DM1 presents left ankle pain. States twisted her ankle on uneven payment and fell on the left side against a cab . She states her pain is her entire left side that is greatest on knee, hip, and shoulder. She denies striking her head or LOC. She is not on any blood thinners. She denies any nausea or vomiting. She did not ambulate afterwards. She states she just recovered from a sprain ankle already on the left side. She denies any neck pain, hip pain, abdominal, chest, or back pain. - History of Current Complaint Chief Complaint: EDExtremityLower Stated Complaint: FALL Time Seen by Provider: 12/23/16 11:00 Pain Intensity: 10 - Allergies/Home Medications Allergies/Adverse Reactions: Allergies Allergy/AdvReac Type Severity Reaction Status Date / Time Asenapine Allergy Rash Verified 12/23/16 11:01 Bee Venom Allergy Anaphylatic Verified 12/23/16 11:01 Shock Nalbuphine [From Nubain] Allergy Rash Verified 12/23/16 11:01 Paroxetine [From Paxil] Allergy Vomiting Verified 12/23/16 11:01 Sulfa Antibiotics Allergy Unknown Verified 12/23/16 11:01 Reaction Details Sulfamethoxazole Allergy Unknown Verified 12/23/16 11:01 w/Trimethoprim Reaction [From Bactrim] Details Tramadol Allergy Rash Verified 12/23/16 11:01 zepeda Allergy Nausea And Uncoded 12/23/16 11:01 Vomiting PMH/Surg Hx/FS Hx/Imm Hx Endocrine/Hematology History: Reports: Hx Diabetes Cardiovascular History: Reports: Hx Angina, Hx Hypercholesterolemia, Hx Hypertension, Other Cardiovascular Problems/Disorders - vasculitis. tachycardia Denies: Hx Coronary Artery Disease, Hx Myocardial Infarction, Hx Peripheral Vascular Disease, Hx Valvular Heart Disease Respiratory History: Reports: Hx Asthma Denies: Hx Chronic Obstructive Pulmonary Disease (COPD) GI History: Reports: Hx Crohn's Disease, Hx Gastroesophageal Reflux Disease, Other GI Disorders - gastroparesis History: Reports: Other Problems/Disorders - PCOS Musculoskeletal History: Denies: Hx Arthritis, Hx Osteoporosis Sensory History: Reports: Hx Contacts or Glasses Denies: Hx Hearing Aid Opthamlomology History: Reports: Hx Contacts or Glasses Neurological History: Denies: Hx Headaches, Hx Seizures, Hx Transient Ischemic Attacks (TIA) Psychiatric History: Reports: Hx Anxiety, Hx Depression, Hx Post Traumatic Stress Disorder, Hx Bipolar Disorder, Other Psychiatric Issues/Disorders - Borderline Personality Disorder - Surgical History Surgery Procedure, Year, and Place: Cholecystectomy. Cardiac Catherterization Infectious Disease History: No Infectious Disease History: Reports: Hx of Known/Suspected MRSA Denies: Traveled Outside the [place] in Last 30 Days - Family History Known Family History: Positive: Cardiac Disease, Diabetes, Other - blood clots ( mother), pacemaker (father) - Social History Alcohol Use: None Hx Substance Use: No Substance Use Type: Reports: None Smoking Status (MU): Heavy Every Day Tobacco Smoker Type: Cigarettes Amount Used/How Often: 1/2 pack q day Have You Smoked in the Last Year: Yes Review of Systems Negative: Fever Negative: Chest Pain Negative: Shortness Of Breath Positive: Myalgia - left shoulder, ankle, and knee All Other Systems Reviewed And Are Negative: Yes Physical Exam Triage Information Reviewed: Yes Vital Signs On Initial Exam: Initial Vitals Temp Pulse Resp BP Pulse Ox 97.5 F 81 20 120/79 98 12/23/16 10:55 12/23/16 10:55 12/23/16 10:55 12/23/16 10:55 12/23/16 10:55 Vital Signs Reviewed: Yes Appearance: Positive: Well-Appearing Skin: Positive: Warm, Dry, Other - abrasions on left knee Head/Face: Positive: Normal Head/Face Inspection Eyes: Positive: Normal, Conjunctiva Clear ENT: Positive: Normal ENT inspection, Pharynx normal, TMs normal Respiratory/Lung Sounds: Positive: Clear to Auscultation, Breath Sounds Present Cardiovascular: Positive: Normal, RRR Abdomen Description: Positive: Nontender, Soft Bowel Sounds: Positive: Present Musculoskeletal: Positive: Strength/ROM Intact - wrists, elbow, hip, Limited @ - left ankle, knee, shoulder due to pain, Other - good pulses, tender to lateral aspect of ankle, tender over abrasions over left ankle, no step off noted - Butch Coma Scale Coma Scale Total: 15 Diagnostics - Vital Signs Vital Signs Temp Pulse Resp BP Pulse Ox 12/23/16 11:00 83 119/81 98 12/23/16 10:59 84 98 12/23/16 10:57 97.5 F 84 20 120/79 98 12/23/16 10:55 97.5 F 81 20 120/79 98 - Laboratory Lab Statement: Any lab studies that have been ordered have been reviewed, and results considered in the medical decision making process. - Radiology ankle Xray Interpretation: No Acute Changes Radiology Interpretation Completed By: Radiologist knee Xray Interpretation: No Acute Changes Radiology Interpretation Completed By: Radiologist shoulder Xray Interpretation: No Acute Changes Radiology Interpretation Completed By: Radiologist Lower Extremity Course/Dx - Course Course Of Treatment: 36F presents with pain on left side s/p twisting left ankle and hitting left side on side of cab. denies any head trauma. pain greatest in left ankle, knee and shoulder with limited ROM due to pain, everywhere else full ROM. abrasion noted to left knee which cleaned and covered. xray shoulder, knee, and ankle normal. patient states has brace at home would like to use for ankle sprain. told to follow up with primary to make sure abrasion heals well since has DM. patient understands and agrees with plan - Diagnoses Differential Diagnosis/HQI/PQRI: Positive: Fracture (Closed), Sprain, Strain Provider Diagnoses: Left ankle pain, Left shoulder pain, Left knee pain Discharge - Discharge Plan Condition: Good Disposition: HOME Patient Education Materials: Ankle Sprain (ED) Referrals: Kiran Hebert MD [Primary Care Provider] - Additional Instructions: Take Tylenol or ibuprofen every 6 hours as needed for pain Apply ice, rest, elevate Follow up with primary care physician within 5 days Return to ED if develop or any new or worsening symptoms
--- NOTE | 2016-12-23 12:13 | RAD ---
Indication: Left ankle pain. 3 views of the left ankle demonstrates no fracture. Ankle mortise is intact. No other bone or joint abnormalities identified. IMPRESSION: No fracture of the ankle is noted.
--- NOTE | 2016-12-23 12:13 | RAD ---
Indication: Left knee pain and injury. 4 views of left knee demonstrates no fracture. No other bone or joint abnormality is identified. Soft tissue swelling is noted in the medial knee. IMPRESSION: No fracture of the left knee is noted.
--- NOTE | 2016-12-23 12:14 | RAD ---
Indication: Left shoulder pain after fall 3 views of left shoulder demonstrates no fracture. No other bone or joint abnormality is identified. IMPRESSION: No fracture of the left shoulder is noted.
[2016-12-23 12:50] VITALS: BP 123/75
== END 2016-12-23 12:52 | disposition home or self-care (01) ==
LOC: ED 10:48
DX: M25.572 Pain in left ankle and joints of left foot (principal); M25.512 Pain in left shoulder; M25.562 Pain in left knee; E11.9 Type 2 diabetes mellitus without complications; E78.00 Pure hypercholesterolemia, unspecified; J45.909 Unspecified asthma, uncomplicated; K50.90 Crohn's disease, unspecified, without complications; K21.9 Gastro-esophageal reflux disease without esophagitis; Z90.49 Acquired absence of other specified parts of digestive tract; Z86.14 Personal history of Methicillin resistant Staphylococcus aureus infection; Z88.5 Allergy status to narcotic agent; Z88.2 Allergy status to sulfonamides; Z88.8 Allergy status to other drugs, medicaments and biological substances; F17.210 Nicotine dependence, cigarettes, uncomplicated
CPT/HCPCS: 96372; 99282; J1885

== ENCOUNTER 2017-01-01 16:16 | Emergency (ER) | payer OTHER ==
[2017-01-01 16:44] VITALS: BP 136/83
--- NOTE | 2017-01-01 17:49 | UC ---
Upper Extremity HPI - HPI Summary HPI Summary: complaint of right arm pain fell last week and smashed her arm into cab mid forearm has become swollen painful to move her arm constant aching pain that radiates into her shoulder and wrist taking naproxen for pain without relief - History of Current Complaint Chief Complaint: UCUpperExtremity Stated Complaint: ARM INJURY Time Seen by Provider: 01/01/17 17:43 Hx Obtained From: Patient Hx Last Menstrual Period: October 07 - Allergies/Home Medications Allergies/Adverse Reactions: Allergies Allergy/AdvReac Type Severity Reaction Status Date / Time Asenapine Allergy Rash Verified 01/01/17 16:45 Bee Venom Allergy Anaphylatic Verified 01/01/17 16:45 Shock Nalbuphine [From Nubain] Allergy Rash Verified 01/01/17 16:45 Paroxetine [From Paxil] Allergy Vomiting Verified 01/01/17 16:45 Sulfa Antibiotics Allergy Unknown Verified 01/01/17 16:45 Reaction Details Sulfamethoxazole Allergy Unknown Verified 01/01/17 16:45 w/Trimethoprim Reaction [From Bactrim] Details Tramadol Allergy Rash Verified 01/01/17 16:45 zepeda Allergy Nausea And Uncoded 12/23/16 11:01 Vomiting Home Medications: Home Medications Atorvastatin* [Lipitor 40 MG*] 80 mg PO 2100 01/01/17 [History Confirmed ] Lorazepam [Ativan 0.5 MG TAB] 01/01/17 [History] PMH/Surg Hx/FS Hx/Imm Hx Previously Healthy: Yes Endocrine History Of: Reports: Diabetes Denies: Hyperthyroidism, Hypothyroidism Cardiovascular History Of: Reports: Cardiac Disorders - tachycardia Denies: Hypertension, Myocardial Infarction Respiratory History Of: Reports: Asthma Denies: COPD Neurological History Of: Denies: TIA, Seizures Psychological History Of: Reports: Anxiety, Depression, Bipolar Disorder - Surgical History Surgical History: None Surgery Procedure, Year, and Place: Cholecystectomy. Cardiac Catherterization - Family History Known Family History: Positive: Cardiac Disease, Diabetes, Other - blood clots ( mother), pacemaker (father) Negative: Hypertension - Social History Occupation: Disabled Lives: With Family Alcohol Use: None Substance Use Type: None Smoking Status (MU): Heavy Every Day Tobacco Smoker Type: Cigarettes Amount Used/How Often: 1/2 pack q day Have You Smoked in the Last Year: Yes Household Exposure Type: Cigarettes - Immunization History Most Recent Influenza Vaccination: 2015 Most Recent Tetanus Shot: 2002 Most Recent Pneumonia Vaccination: 2010 Review of Systems Constitutional: Negative Skin: Negative Eyes: Negative ENT: Negative Respiratory: Negative Cardiovascular: Negative Gastrointestinal: Negative Genitourinary: Negative Motor: Negative Neurovascular: Negative Musculoskeletal: Other: - right arm pain Neurological: Negative Psychological: Negative All Other Systems Reviewed And Are Negative: Yes Physical Exam Triage Information Reviewed: Yes Appearance: No Pain Distress, Well-Nourished, Obese Vital Signs: Initial Vital Signs Temp 97.5 F 01/01/17 16:34 Pulse 96 01/01/17 16:34 Resp 18 01/01/17 16:34 BP 136/83 01/01/17 16:34 Pulse Ox 98 01/01/17 16:34 Vital Signs Reviewed: Yes Eyes: Positive: Conjunctiva Clear ENT: Positive: Pharynx normal, TMs normal Neck: Positive: Supple, No Lymphadenopathy Respiratory: Positive: Lungs clear, Normal breath sounds, No respiratory distress, No accessory muscle use Cardiovascular: Positive: RRR, No Murmur, Pulses Normal Abdomen Description: Positive: Nontender, Soft, Distended Bowel Sounds: Positive: Present Musculoskeletal: Positive: Other: - RUE-edema and tenderness over mid ulna - olecranon, medial, lateral epicondyle elbow non tender. Full ROM upon flexion and extension Neurological Exam: Normal Psychological Exam: Normal Skin: Positive: rashes, Other - right arm- erythema and edeam over contusion Upper Extremity Course/Dx - Course Course Of Treatment: exam completed. x-ray shows no fracture- soft tissue swelling. appears to have cellulitis in the area of swelling - Differential Dx/Diagnosis Differential Diagnosis/HQI/PQRI: Contusion, Fracture (Closed), Strain, Sprain Provider Diagnoses: right arm contusion, cellulits Discharge - Discharge Plan Condition: Stable Disposition: HOME Prescriptions: Cephalexin CAP* [Keflex CAP*] 500 mg PO QID #28 cap Patient Education Materials: Contusion in Adults (ED), Cellulitis (ED) Referrals: Kimberlyn Dhillon MD [Primary Care Provider] - Additional Instructions: Please take antibiotic as directed Increase fluids and rest Take acetaminophen or ibuprofen for fever or pain Please review your discharge instructions. If your symptoms do not improve please call your primary care provider or return to urgent care. Your blood pressure is pre-hypertensive reading. Please contact your primary care provider within 1 day -4 weeks for further evaluation
--- NOTE | 2017-01-01 18:48 | RAD ---
Indication: RIGHT forearm pain and edema post fall last week. Posterior forearm pain. Comparison: No relevant prior exams available on the [facility] [place] [facility]. Technique: AP and lateral views RIGHT radius and ulna. REPORT AND IMPRESSION: Negative for fracture or malalignment. Diffuse soft tissue swelling most prominent over the dorsal aspect. No conspicuous foreign body or subcutaneous emphysema.
[2017-01-01] MEDS ORDERED: HYDROcodone/ACETAMIN 5-325 MG* 1 TAB PO ONE (19:14)
== END 2017-01-01 19:20 | disposition home or self-care (01) ==
LOC: UCEAST 16:16
DX: S50.11XA Contusion of right forearm, initial encounter (principal); W18.09XA Striking against other object with subsequent fall, initial encounter; Y93.9 Activity, unspecified; Y92.9 Unspecified place or not applicable; L03.90 Cellulitis, unspecified; E11.9 Type 2 diabetes mellitus without complications; R00.0 Tachycardia, unspecified; J45.909 Unspecified asthma, uncomplicated; F41.8 Other specified anxiety disorders; Z90.49 Acquired absence of other specified parts of digestive tract; E66.9 Obesity, unspecified; Z88.5 Allergy status to narcotic agent; Z88.8 Allergy status to other drugs, medicaments and biological substances; Z91.030 Bee allergy status; F31.9 Bipolar disorder, unspecified; F17.210 Nicotine dependence, cigarettes, uncomplicated
CPT/HCPCS: 99212; G0463

== ENCOUNTER 2017-02-01 19:00 | Emergency (ER) | payer OTHER ==
[2017-02-01 22:30] LABS: Hematocrit 37 % (35-47); Hemoglobin 12.2 g/dl (12.0-16.0); Mean Corpuscular HGB Conc 33 g/dl (31-36); Mean Corpuscular Hemoglobin 27 pg (27-31); Mean Corpuscular Volume 82 fL (80-97); Mean Platelet Volume 7 um3 (7.4-10.4); Red Blood Count 4.58 10^6/ul (4.0-5.4); Red Cell Distribution Width 15 % (10.5-15); White Blood Count 22.2 10^3/ul (3.5-10.8)
[2017-02-01 22:37] LABS: Add Diff/Slide Review? Slide Review Added; Comments Flag Yes
[2017-02-01 22:45] LABS: Urine Bilirubin Negative (Negative); Urine Glucose 1+(50 mg/dL) (Negative); Urine Nitrite Negative (Negative)
[2017-02-01 22:46] LABS: ALT 11 U/L (7-52); AST 11 U/L (13-39); Albumin 3.4 g/dL (3.2-5.2); Alkaline Phosphatase 125 U/L (34-104); Anion Gap 7 mmol/L (2-11); BUN/Creatinine Ratio 20.4 (8-20); Blood Urea Nitrogen 11 mg/dL (6-24); CO2 Carbon Dioxide 26 mmol/L (22-32); Calcium 9.2 mg/dL (8.6-10.3); Chloride 98 mmol/L (101-111); EGFR African American 166.2 (>60); EGFR Non-African American 129.2 (>60); Globulin 4.4 g/dL (2-4); Glucose 247 mg/dL (70-100); Potassium 3.6 mmol/L (3.5-5.0); Sodium 131 mmol/L (133-145); Total Protein 7.8 g/dL (6.4-8.9)
[2017-02-01] MEDS ORDERED: Iodixanol* (CONTRAST) 320 MG/ML 100 ML SDV IV ONE (23:21)
[2017-02-02] MEDS ORDERED: Iodixanol* (CONTRAST) 320 MG/ML 100 ML SDV IV ONE (00:50)
[2017-02-02 02:22] VITALS: BP 111/61
--- NOTE | 2017-02-02 08:12 | RAD ---
INDICATION: Lower abdominal pain. COMPARISON: There are no prior studies available for comparison. TECHNIQUE: A CT scan of the abdomen and pelvis was performed with intravenous and oral contrast following intravenous injection of 105 ml of Visipaque 320 nonionic contrast. Contiguous axial sections were obtained from the lung bases through the symphysis pubis. Images were reconstructed in the coronal and sagittal planes. FINDINGS: The lung bases are clear. No pleural effusion is present. The liver is mildly enlarged and decreased in attenuation consistent with fatty infiltration. The spleen is mildly enlarged without focal abnormality. The patient is status post cholecystectomy. The pancreas appears to be within normal limits in size. No ductal distention is seen. The kidneys and adrenal glands are normal in size. No hydronephrosis is seen. No significant focal renal abnormality is seen. The aorta is normal in caliber and demonstrates homogeneous contrast opacification. There is a mildly prominent retroperitoneal lymph node present in the left periaortic region in the lower abdomen measuring 1.1 cm in transverse dimension. There are mildly prominent inguinal lymph nodes are nonspecific although likely incidental. No other enlarged lymph nodes are seen. The stomach, small and large bowel appear nondistended. There is calcific debris present within the stomach. The appendix appears to be within normal limits. There is no evidence for diverticulitis or colitis. The uterus is anteverted and normal in size. No free intraperitoneal air or fluid is seen. No significant focal osseous abnormality is seen. IMPRESSION: 1. NO EVIDENCE FOR ACUTE INTRA-ABDOMINAL ABNORMALITY OR CAUSE FOR THE PATIENT'S ABDOMINAL PAIN IS SEEN. 2. MILD HEPATOSPLENOMEGALY AND HEPATIC STEATOSIS. 3. STATUS POST CHOLECYSTECTOMY.
--- NOTE | 2017-02-13 19:31 | ED ---
I, Oh,Rod, scribed for Nickolas Tom MD on 02/01/17 at 2206 . Abdominal Pain/Female - HPI Summary HPI Summary: This 36 y/o female presents to ED for acute onset of right sided abd pain since today AM. Positive diarrhea. Negative n/v, fever, or chills. Motrin did little alleviate the pain. PMHx is complex and includes gastroparesis, PCOS, Type I DM , vasculitis, and asthma. LMP was 10/07/2016. FHx is positive for CAD to mother. - History of Current Complaint Chief Complaint: EDAbdPain Stated Complaint: ABD PAIN,DIARRHEA Time Seen by Provider: 02/01/17 22:00 Hx Obtained From: Patient, Medical Records Hx Last Menstrual Period: October 07 Timing: Constant Pain Intensity: 8 Pain Scale Used: 0-10 Numeric Location: Discrete At: RUQ, Discrete At: RLQ Radiates: No Character: Dull Aggravating Factor(s): Nothing Alleviating Factor(s): Nothing Associated Signs and Symptoms: Positive: Diarrhea. Negative: Diaphoresis, Fever Allergies/Adverse Reactions: Allergies Allergy/AdvReac Type Severity Reaction Status Date / Time Asenapine Allergy Rash Verified 02/01/17 22:06 Bee Venom Allergy Anaphylatic Verified 02/01/17 22:06 Shock Nalbuphine [From Nubain] Allergy Rash Verified 02/01/17 22:06 Paroxetine [From Paxil] Allergy Vomiting Verified 02/01/17 22:06 Sulfa Antibiotics Allergy Unknown Verified 02/01/17 22:06 Reaction Details Sulfamethoxazole Allergy Unknown Verified 02/01/17 22:06 w/Trimethoprim Reaction [From Bactrim] Details Tramadol Allergy Rash Verified 02/01/17 22:06 zepeda Allergy Nausea And Uncoded 02/01/17 22:06 Vomiting PMH/Surg Hx/FS Hx/Imm Hx Endocrine/Hematology History: Reports: Hx Diabetes Cardiovascular History: Reports: Hx Angina, Hx Hypercholesterolemia, Other Cardiovascular Problems/Disorders - vasculitis. tachycardia Denies: Hx Coronary Artery Disease, Hx Hypertension, Hx Myocardial Infarction , Hx Peripheral Vascular Disease, Hx Valvular Heart Disease Respiratory History: Reports: Hx Asthma Denies: Hx Chronic Obstructive Pulmonary Disease (COPD) GI History: Reports: Hx Crohn's Disease, Hx Gastroesophageal Reflux Disease, Other GI Disorders - gastroparesis History: Reports: Other Problems/Disorders - PCOS Musculoskeletal History: Denies: Hx Arthritis, Hx Osteoporosis Sensory History: Reports: Hx Contacts or Glasses Denies: Hx Hearing Aid Opthamlomology History: Reports: Hx Contacts or Glasses Neurological History: Denies: Hx Headaches, Hx Seizures, Hx Transient Ischemic Attacks (TIA) Psychiatric History: Reports: Hx Anxiety, Hx Depression, Hx Post Traumatic Stress Disorder, Hx Bipolar Disorder, Other Psychiatric Issues/Disorders - Borderline Personality Disorder - Surgical History Surgery Procedure, Year, and Place: Cholecystectomy. 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 Negative: Vomiting, Nausea All Other Systems Reviewed And Are Negative: Yes Physical Exam Triage Information Reviewed: Yes Vital Signs On Initial Exam: Initial Vitals Temp Pulse Resp BP Pulse Ox 97 F 100 20 130/90 100 02/01/17 19:25 02/01/17 19:25 02/01/17 19:25 02/01/17 19:25 02/01/17 19:25 Vital Signs Reviewed: Yes Appearance: Positive: Well-Appearing, Pain Distress - mild discomfort Skin: Positive: Warm Head/Face: Positive: Normal Head/Face Inspection Eyes: Positive: [place] ENT: Positive: Hearing grossly normal Neck: Positive: Supple Respiratory/Lung Sounds: Positive: Clear to Auscultation, Breath Sounds Present Cardiovascular: Positive: RRR Abdomen Description: Positive: No Organomegaly, Soft, Other: - mild mid rt abd pain. Negative: Distended, Guarding Bowel Sounds: Positive: Present Musculoskeletal: Positive: Strength/ROM Intact Neurological: Positive: Alert, Oriented to Person Place, Time Psychiatric: Positive: Affect/Mood Appropriate Diagnostics - Vital Signs Vital Signs Temp Pulse Resp BP Pulse Ox 02/01/17 19:25 97 F 100 20 130/90 100 - Laboratory Lab Results: Lab Results 02/01/17 02/01/17 02/01/17 Range/Units 22:25 22:25 22:30 WBC 22.2 H (3.5-10.8) 10^3/ul RBC 4.58 (4.0-5.4) 10^6/ul Hgb 12.2 (12.0-16.0) g/dl Hct 37 (35-47) % MCV 82 (80-97) fL MCH 27 (27-31) pg MCHC 33 (31-36) g/dl RDW 15 (10.5-15) % Plt Count 375 (150-450) 10^3/ul MPV 7 L (7.4-10.4) um3 Neut % (Auto) 67.3 (38-83) % Lymph % (Auto) 24.8 L (25-47) % [place] % (Auto) 6.2 (1-9) % Eos % (Auto) 0.8 (0-6) % Baso % (Auto) 0.9 (0-2) % Absolute Neuts (auto) 14.9 H (1.5-7.7) 10^3/ul Absolute Lymphs (auto) 5.5 H (1.0-4.8) 10^3/ul Absolute Monos (auto) 1.4 H (0-0.8) 10^3/ul Absolute Eos (auto) 0.2 (0-0.6) 10^3/ul Absolute Basos (auto) 0.2 (0-0.2) 10^3/ul Absolute Nucleated RBC 0.01 10^3/ul Nucleated RBC % 0.1 Hem Pathologist Commnt Sodium 131 L (133-145) mmol/L Potassium 3.6 (3.5-5.0) mmol/L Chloride 98 L (101-111) mmol/L Carbon Dioxide 26 (22-32) mmol/L Anion Gap 7 (2-11) mmol/L BUN 11 (6-24) mg/dL Creatinine 0.54 (0.51-0.95) mg/dL Est GFR ( Amer) 166.2 (>60) Est GFR (Non-Af Amer) 129.2 (>60) BUN/Creatinine Ratio 20.4 H (8-20) Glucose 247 H (70-100) mg/dL Calcium 9.2 (8.6-10.3) mg/dL Total Bilirubin 0.30 (0.2-1.0) mg/dL AST 11 L (13-39) U/L ALT 11 (7-52) U/L Alkaline Phosphatase 125 H (34-104) U/L Total Protein 7.8 (6.4-8.9) g/dL Albumin 3.4 (3.2-5.2) g/dL Globulin 4.4 H (2-4) g/dL Albumin/Globulin Ratio 0.8 L (1-3) Beta HCG, Quant < 0.60 mIU/mL Urine Color Yellow Urine Appearance Clear Urine pH 6.0 (5-9) Ur Specific [place] 1.014 (1.010-1.030) Urine Protein Negative (Negative) Urine Ketones Negative (Negative) Urine Blood Negative (Negative) Urine Nitrate Negative (Negative) Urine Bilirubin Negative (Negative) Urine Urobilinogen Negative (Negative) Ur Leukocyte Esterase Negative (Negative) Urine Glucose 1+(50 mg/dl) H (Negative) Result Diagrams: 02/01/17 22:25 02/01/17 22:25 Lab Statement: Any lab studies that have been ordered have been reviewed, and results considered in the medical decision making process. - CT Ab/P CT Interpretation: No Acute Changes - No inflammatory process identified in the abd or pelvis. No abd mass, adenopathy or collection seen. No explanation seen for this pt' abd pain. CT Interpretation Completed By: Radiologist Abdominal Pain Fem Course/Dx - Course Course Of Treatment: This 36 y/o female presents to ED for acute onset of right sided abd pain since today AM. Pt reports diarrhea, but denies any n/v, chills, fever. Bloodwork indicates elevated WBC of 22.2, elevated BUN/creatinine 20.4, and blood glucose 247. UA is wnl except 1+ glucose. CT Ab/P indicates negative. Pt is discharged with outpatient f/u. - Diagnoses Provider Diagnoses: Abdominal pain Discharge - Discharge Plan Condition: Stable Disposition: HOME Patient Education Materials: Abdominal Pain (ED) Referrals: Kimberlyn Dhillon MD [Primary Care Provider] - 2 Days The documentation as recorded by the Ezra ruelas Soohyun accurately reflects the service I personally performed and the decisions made by , Nickolas Tom MD.
== END 2017-02-02 02:22 | disposition home or self-care (01) ==
LOC: ED 19:00
DX: R10.11 Right upper quadrant pain (principal); R10.31 Right lower quadrant pain; Z32.02 Encounter for pregnancy test, result negative; R19.7 Diarrhea, unspecified; E11.9 Type 2 diabetes mellitus without complications; I20.9 Angina pectoris, unspecified; I21.3 ST elevation (STEMI) myocardial infarction of unspecified site; K21.9 Gastro-esophageal reflux disease without esophagitis; J45.909 Unspecified asthma, uncomplicated; E78.00 Pure hypercholesterolemia, unspecified; Z90.49 Acquired absence of other specified parts of digestive tract; K50.90 Crohn's disease, unspecified, without complications; Z88.2 Allergy status to sulfonamides; Z88.8 Allergy status to other drugs, medicaments and biological substances; Z91.030 Bee allergy status; F17.210 Nicotine dependence, cigarettes, uncomplicated
CPT/HCPCS: 36415; 74177; 80053; 81003; 84702; 85025; 85060; 96374; 99283; Q9967

== ENCOUNTER 2017-03-18 14:22 | Emergency (ER) | payer OTHER ==
--- NOTE | 2017-03-18 18:03 | ED ---
Abdominal Pain/Female - HPI Summary HPI Summary: Immune compromised pt here w/ ab pain (RLQ) and nausea w/ intermittent vomiting. Reports she felt like she had a sinus infection 2 weeks ago - nasal congestion, sinus pain/pressure, headache, PND (which tasted worse than usual) and subjective fevers. Called her PCP's office and they told her to wait 10 days and implement supportive care - she tried nyquil, saline nasal spray, etc and sx eventually resolved however 1.5 weeks ago she developed decreased appetite, nausea and RLQ ab pain. Can "barely" hold down liquids. Eating makes ab pain worse. BM's have been like diarrhea so has been taking immodium. Denies chest pain, SOB but does have "fluttering" in her chest x 1 month - was seen by PCP and holter monitor recently performed - no results yet. She also admits to starting vybriid 2 months ago - not sure if any of these sx are side effects or not? Otherwise, denies new foods, beverages, etc. H/o ab pain last month - pt reports pain then was around navel and not as intense. Per pt, had CT scan - sent home. Report indicates pt did complaint of RLQ pain and had diarrhea then as well but no N/V. CT was normal and labs reveal elevated WBC's (22) however she reports she lives around 17. Repeat labs on 03/13/2017 also show WBC's at 20.7, ESR 103, CRP 40.93. Based on these results , PCP is sending her to credit and collections analyst who she is scheduled to see in March. She currently takes prednisone and cellcept. Also admits to recent colposcopy for abnormal pap. This was performed Wednesday - has had this pain since but was told by [employer] pain should be better by now. On her period now. PCOS - had TVUS at [employer] appt - normal per pt (no cysts). Not sexually active. When she does engage in sexual activity, it's with her female partner. No dysuria, urinary frequency, flank pain nor vaginal irritation, discharge other than period. Med hx significant for vasculitis, type 1 diabetes, gastroparesis, leukocytosis (as mentioned above), mental health issues. - History of Current Complaint Chief Complaint: Liz Stated Complaint: ABD PAIN/NAUSEA Time Seen by Provider: 03/18/17 17:32 Hx Obtained From: Patient Hx Last Menstrual Period: October 07 Pain Intensity: 0 Allergies/Adverse Reactions: Allergies Allergy/AdvReac Type Severity Reaction Status Date / Time Asenapine Allergy Rash Verified 02/01/17 22:06 Bee Venom Allergy Anaphylatic Verified 02/01/17 22:06 Shock Nalbuphine [From Nubain] Allergy Rash Verified 02/01/17 22:06 Paroxetine [From Paxil] Allergy Vomiting Verified 02/01/17 22:06 Sulfa Antibiotics Allergy Unknown Verified 02/01/17 22:06 Reaction Details Sulfamethoxazole Allergy Unknown Verified 02/01/17 22:06 w/Trimethoprim Reaction [From Bactrim] Details Tramadol Allergy Rash Verified 02/01/17 22:06 zepeda Allergy Nausea And Uncoded 02/01/17 22:06 Vomiting PMH/Surg Hx/FS Hx/Imm Hx Previously Healthy: Yes Endocrine/Hematology History: Reports: Hx Diabetes - type 1 - ON INSULIN, Autoimmune Disease - vasculitis - takes prednisone and cellcept Cardiovascular History: Reports: Hx Angina, Hx Hypercholesterolemia, Other Cardiovascular Problems/Disorders - vasculitis. tachycardia Denies: Hx Coronary Artery Disease, Hx Hypertension, Hx Myocardial Infarction , Hx Peripheral Vascular Disease, Hx Valvular Heart Disease Respiratory History: Reports: Hx Asthma Denies: Hx Chronic Obstructive Pulmonary Disease (COPD) GI History: Reports: Hx Crohn's Disease, Hx Gastroesophageal Reflux Disease, Other GI Disorders - gastroparesis History: Reports: Other Problems/Disorders - PCOS, abnormal pap; + HPV Musculoskeletal History: Denies: Hx Arthritis, Hx Osteoporosis Sensory History: Reports: Hx Contacts or Glasses Denies: Hx Hearing Aid Opthamlomology History: Reports: Hx Contacts or Glasses Neurological History: Denies: Hx Headaches, Hx Seizures, Hx Transient Ischemic Attacks (TIA) Psychiatric History: Reports: Hx Anxiety, Hx Depression, Hx Post Traumatic Stress Disorder, Hx Bipolar Disorder, Other Psychiatric Issues/Disorders - Borderline Personality Disorder - Surgical History Surgery Procedure, Year, and Place: Cholecystectomy. 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 noncarrier now Denies: Traveled Outside the [place] in Last 30 Days - Family History Known Family History: Positive: Cardiac Disease, Diabetes, Other - blood clots ( mother), pacemaker (father) Negative: Hypertension - Social History Lives: Snf Alcohol Use: None Hx Substance Use: No Substance Use Type: Reports: None Hx Tobacco Use: Yes Smoking Status (MU): Current Every Day Smoker Type: Cigarettes Amount Used/How Often: 1/2 pack q day Have You Smoked in the Last Year: Yes Review of Systems Constitutional: Negative Negative: Fever, Chills Eyes: Negative Negative: Sore Throat, Ear Ache, Nasal Discharge Positive: Palpitations - see HPI - intermittent, non-painful. Negative: Chest Pain Respiratory: Negative Negative: Shortness Of Breath, Cough Gastrointestinal: Other - see HPI Positive: no symptoms reported Musculoskeletal: Negative Skin: Negative Neurological: Negative Psychological: Normal - concerned but calm and cooperative All Other Systems Reviewed And Are Negative: Yes Physical Exam Triage Information Reviewed: Yes Vital Signs On Initial Exam: Initial Vitals Temp Pulse Resp BP Pulse Ox 97.8 F 91 18 134/97 99 03/18/17 14:25 03/18/17 14:25 03/18/17 14:25 03/18/17 14:25 03/18/17 14:25 Vital Signs Reviewed: Yes Appearance: Positive: Well-Appearing, No Pain Distress - pt lying on her Rt side on stretcher - appears to be comfortable although reports discomfort when she transitions to other positions, Obese Skin: Positive: Warm, Dry - multiple areas of hyperpigmentation from scarring Head/Face: Positive: Normal Head/Face Inspection Eyes: Positive: Normal, EOMI, RICO, Conjunctiva Clear. Negative: Conjunctiva Inflammed, Discharge ENT: Positive: Hearing grossly normal, TMs normal, Other - white, stuck on material on buccal mucosa within cheeks B/L and along inner lips - NTTP, no erythema, no bleeding- appears to be thrush. Negative: Nasal congestion, Nasal drainage, Tonsillar swelling, Tonsillar exudate Dental: Positive: Other - edentulous Neck: Positive: Supple, Nontender Respiratory/Lung Sounds: Positive: Clear to Auscultation, Breath Sounds Present - distant breath sounds 2ndry to body habitus. Negative: Rales, Rhonchi, Wheezes Cardiovascular: Positive: Normal - distant heart sounds 2ndry to body habitus, RRR, S1, S2. Negative: Murmur, Rub Abdomen Description: Positive: No Organomegaly - although this may not be accurate as exam difficult 2ndry to body habitus, Soft Bowel Sounds: Positive: Present Pelvic Exam: Positive: other - deferred Musculoskeletal: Positive: Normal, Strength/ROM Intact Neurological: Positive: Normal, Sensory/Motor Intact, Alert, Oriented to Person Place, Time, CN Intact II-III Psychiatric: Positive: Normal Diagnostics - Vital Signs Vital Signs Temp Pulse Resp BP Pulse Ox 03/18/17 15:51 97.3 F 88 16 124/83 97 03/18/17 14:25 97.8 F 91 18 134/97 99 - Laboratory Result Diagrams: 03/18/17 19:15 03/18/17 19:15 Lab Statement: Any lab studies that have been ordered have been reviewed, and results considered in the medical decision making process. Re-Evaluation - Re-Evaluation First Eval Change: Unchanged - nausea persists - pt believes this is from pain. Explained her magnesium is low and so she will receive this through IV - this may reduce ab pain is it's being caused by muscle spasm/cramping. Will also order more zofran in the meantime. Also ordered nystatin swish and spit - explained how to use this. Pt voices understanding. Second Eval Change: Unchanged - pain persists - same in RLQ. Nausea same. Will try morphine for pain (she's had in the past w/o issues) and ativan for nausea. Discussed repeating a CT scan as we cannot be sure she doesn't have a stone/appendicitis d /t routinely abnormal labs and hematuria from period vs. stone - pt agrees to proceed w/ CT Abdominal Pain Fem Course/Dx - Course Course Of Treatment: Pt here w/ RLQ pain x > 1 month. Was seen here in January - CT normal then. SHe had diarrhea at that time which she continues to have but better since taking immodium. New onset of nausea and vomiting past 2 few days which is why she's here. Labs are consistently elevated in regards to WBC's and CRP (actually look better today than usual). She does have a mildly increased lactic acid level so repeat ab CT performed - negative. She was found to have thrush in her mouth which may have grown in her immunosuppresed state as she takes prednisone and cellcept daily to tx her vasculitis. She reports she had pelvic exam w/ TVUS earlier this week - normal. Had bx taken then started her period. AFter discussion, we came to conclusion that her pain triggering her nausea could be from menstrual cramps. Unfortunately she is unable to take NSAID 's w/ her GERD and declines trying heat pack. Her diarrhea has stopped d/t taking immodium but encouraged to stop and collect a stool sample for testing as she could have an intestinal infection *NOTE: no inflammation noted on CT tonight. Advised to f/u w/ PCP to continue w/u of abdominal pain of unknown origin and follow tx of oral candidiasis. Explained again how to use medication. Pt voices understanding and agrees w/ plan. - Diagnoses Provider Diagnoses: Right lower quadrant abdominal pain, Candidiasis of mouth, Diarrhea Discharge - Discharge Plan Condition: Stable Disposition: HOME Prescriptions: Nystatin SUSPENSION* 500,000 units PO QID #1 bottle Patient Education Materials: Abdominal Pain (ED), Dysmenorrhea (ED), Acute Diarrhea (ED), Oral Candidiasis (ED) Referrals: Kimberlyn Dhillon MD [Primary Care Provider] - Additional Instructions: You have thrush, an oral fungal infection. It is important that you use your oral medication as directed (hold in mouth for 3 minutes then spit. Use until white spots clear then use for an additional 48 hours). It is also important that you follow-up with your PCP regarding this infection to make sure it is healing appropriately. If it does not improve, you may need more advanced medication. Call your PCP tomorrow to schedule an appointment next week. A definitive cause of your right lower abdominal pain was not identified tonight. It was suggested this could be dysmenorrhea, a painful period. Please see education about condition and how to treat. You may also discuss further with your PCP. Again, call your PCP tomorrow to schedule an appointment next week. You also have diarrhea that has not been assessed. Stop taking immodium and discuss providing a stool sample with your PCP for further workup to rule out or diagnose potential intestinal infection. In the meantime, stay hydrated by drinking plenty of fluids such as water, Gatorade 2 (low glucose gatorade) and avoid sugary beverages which may make thrush worse. *If you develop chest pain, shortness of breath, severe abdominal pain, vomiting , intractable diarrhea, weakness, fever, chills, return to ED
[2017-03-18] MEDS ORDERED: Ondansetron INJ* 2 MG/ML VIAL IV ONE ×2 (18:22→20:09)
[2017-03-18] MEDS ORDERED: NS 0.9% 1000 ML* 1,000 ML IV ONE (18:22)
[2017-03-18 19:27] LABS: Hematocrit 40 % (35-47); Hemoglobin 12.9 g/dl (12.0-16.0); Mean Corpuscular HGB Conc 33 g/dl (31-36); Mean Corpuscular Hemoglobin 28 pg (27-31); Mean Corpuscular Volume 85 fL (80-97); Mean Platelet Volume 7 um3 (7.4-10.4); Red Blood Count 4.66 10^6/ul (4.0-5.4); Red Cell Distribution Width 14 % (10.5-15); White Blood Count 20.2 10^3/ul (3.5-10.8)
[2017-03-18 19:41] LABS: ALT 14 U/L (7-52); AST 12 U/L (13-39); Albumin 3.5 g/dL (3.2-5.2); Alkaline Phosphatase 126 U/L (34-104); Amylase 19 U/L (29-103); Anion Gap 7 mmol/L (2-11); BUN/Creatinine Ratio 13.1 (8-20); Blood Urea Nitrogen 8 mg/dL (6-24); C Reactive Protein 43.87 mg/L (< 5.00); CO2 Carbon Dioxide 26 mmol/L (22-32); Calcium 9.3 mg/dL (8.6-10.3); Chloride 98 mmol/L (101-111); EGFR African American 144.4 (>60); EGFR Non-African American 112.3 (>60); Globulin 4.7 g/dL (2-4); Glucose 314 mg/dL (70-100); Lipase < 10 U/L (11.0-82.0); Magnesium 1.5 mg/dL (1.9-2.7); Potassium 3.8 mmol/L (3.5-5.0); Sodium 131 mmol/L (133-145); Total Protein 8.2 g/dL (6.4-8.9)
[2017-03-18 19:58] LABS: Urine Bacteria Absent (Absent); Urine Bilirubin Negative (Negative); Urine Glucose 3+(>=500 mg/dL) (Negative); Urine Nitrite Negative (Negative)
[2017-03-18] MEDS ORDERED: Magnesium Sulfate 2 GM IV* 2 GM/50 ML BAG IVPB ONE (19:58)
[2017-03-18] MEDS ORDERED: Nystatin SUSPENSION* 100000 UNITS/ML 5 ML UDC PO SCH (21:00)
[2017-03-18] MEDS ORDERED: Morphine INJ* 4 MG/ML 1 ML SYRINGE IV ONE ×2 (21:48→23:41)
[2017-03-18] MEDS ORDERED: LORazepam INJ* 2 MG/ML 1 ML VIAL IV PUSH ONE (21:48)
[2017-03-18] MEDS ORDERED: Iodixanol* (CONTRAST) 320 MG/ML 100 ML SDV IV ONE (23:28)
[2017-03-19 01:57] VITALS: BP 134/71
--- NOTE | 2017-03-19 07:38 | RAD ---
CLINICAL HISTORY: Right lower quadrant pain with nausea, vomiting and diarrhea COMPARISON: Most recent comparison CT is dated February 02, 2017 TECHNIQUE: Oral contrast only CT examination of the abdomen and pelvis from the lung bases through the initial tuberosities. FINDINGS: VISUALIZED LUNG BASES: The visualized lung bases are grossly clear. There is no pleural effusion. ABDOMEN AND PELVIS: Evaluation of the solid organs and vasculature is limited without intravenous contrast. The liver, spleen, pancreas and adrenal glands are grossly normal in appearance. The gallbladder is surgically absent. The kidneys are normal in appearance without focal mass, calcification or signs of hydronephrosis. The oral contrast has progressed as far as the base of the cecum. The small and large bowel are not distended. The normal appearing 5 mm wide partially contrast-filled appendix is identified in the right lower quadrant (image 55 on the coronal images). There is no gross retroperitoneal or mesenteric lymphadenopathy. The pelvic viscera is normal in appearance. The abdominal aorta and iliac arteries are normal in course and diameter. Superficial varicose veins measuring up to 8 mm in diameter are noted in the proximal right anterior thigh (image 111). The left great saphenous vein measures 7 mm in diameter, although there are no varicoid veins visualized. There are no sinister bone lesions. IMPRESSION: 1. No acute abnormality of the gastrointestinal tract. The appendix is normal. 2. Incidentally noted are varicose veins in the anterior right proximal thigh.
--- NOTE | 2017-03-20 09:37 | ED ---
Progress - Progress Note Progress Note: Pt's urine cx reveals strep group B - given her clinical presentation of RLQ pain and immunocompromised state, will start PCN and have her f/u w/ PCP. Rx sent to [facility]. [facility]. Will mail letter as well. janeen Florez, aware. Re-Evaluation - Re-Evaluation First Eval Change: Unchanged - nausea persists - pt believes this is from pain. Explained her magnesium is low and so she will receive this through IV - this may reduce ab pain is it's being caused by muscle spasm/cramping. Will also order more zofran in the meantime. Also ordered nystatin swish and spit - explained how to use this. Pt voices understanding. Second Eval Change: Unchanged - pain persists - same in RLQ. Nausea same. Will try morphine for pain (she's had in the past w/o issues) and ativan for nausea. Discussed repeating a CT scan as we cannot be sure she doesn't have a stone/appendicitis d /t routinely abnormal labs and hematuria from period vs. stone - pt agrees to proceed w/ CT Course/Dx - Course Course Of Treatment: Pt here w/ RLQ pain x > 1 month. Was seen here in January - CT normal then. SHe had diarrhea at that time which she continues to have but better since taking immodium. New onset of nausea and vomiting past 2 few days which is why she's here. Labs are consistently elevated in regards to WBC's and CRP (actually look better today than usual). She does have a mildly increased lactic acid level so repeat ab CT performed - negative. She was found to have thrush in her mouth which may have grown in her immunosuppresed state as she takes prednisone and cellcept daily to tx her vasculitis. She reports she had pelvic exam w/ TVUS earlier this week - normal. Had bx taken then started her period. AFter discussion, we came to conclusion that her pain triggering her nausea could be from menstrual cramps. Unfortunately she is unable to take NSAID 's w/ her GERD and declines trying heat pack. Her diarrhea has stopped d/t taking immodium but encouraged to stop and collect a stool sample for testing as she could have an intestinal infection *NOTE: no inflammation noted on CT tonight. Advised to f/u w/ PCP to continue w/u of abdominal pain of unknown origin and follow tx of oral candidiasis. Explained again how to use medication. Pt voices understanding and agrees w/ plan. - Diagnoses Provider Diagnoses: Right lower quadrant abdominal pain, Candidiasis of mouth, Diarrhea
== END 2017-03-19 02:25 | disposition home or self-care (01) ==
LOC: ED 14:22
DX: R10.31 Right lower quadrant pain (principal); B37.0 Candidal stomatitis; R19.7 Diarrhea, unspecified
CPT/HCPCS: 36415; 74176; 80053; 81003; 81015; 82150; 83605; 83690; 83735; 85025; 86140; 87040; 87077; 87086; 96361; 96374; 99283; A9270-GY; J2060; J2270; J2405

== ENCOUNTER 2017-03-23 16:59 | Emergency (ER) | payer OTHER ==
[2017-03-23] MEDS ORDERED: Ondansetron INJ* 2 MG/ML VIAL IV ONE (17:50)
[2017-03-23] MEDS ORDERED: Morphine INJ* 4 MG/ML 1 ML SYRINGE IV ONE (17:50)
[2017-03-23] MEDS: NS 0.9% 1000 ML* 2,000 ML IV ONE (18:32)
--- NOTE | 2017-03-23 18:37 | RAD ---
INDICATION: Cough. Short of breath. Pneumonia. COMPARISON: November 29, 2016 TECHNIQUE: An AP portable view obtained at 1752 hours is submitted. FINDINGS: Bones/Soft Tissues: There are no acute bony findings. Cardiomediastinal: The cardiomediastinal silhouette is normal. Lungs: There are no infiltrates. Pleura: There are no pleural effusions. Other: None IMPRESSION: NO ACTIVE DISEASE.
[2017-03-23 18:46] LABS: Hematocrit 41 % (35-47); Hemoglobin 13.5 g/dl (12.0-16.0); Mean Corpuscular HGB Conc 33 g/dl (31-36); Mean Corpuscular Hemoglobin 28 pg (27-31); Mean Corpuscular Volume 85 fL (80-97); Mean Platelet Volume 7 um3 (7.4-10.4); Red Blood Count 4.88 10^6/ul (4.0-5.4); Red Cell Distribution Width 14 % (10.5-15); White Blood Count 22.7 10^3/ul (3.5-10.8)
[2017-03-23 18:47] LABS: Add Diff/Slide Review? Slide Review Added; Comments Flag Yes
[2017-03-23 19:04] LABS: ALT 14 U/L (7-52); AST 12 U/L (13-39); Albumin 3.4 g/dL (3.2-5.2); Alkaline Phosphatase 134 U/L (34-104); Amylase 18 U/L (29-103); Anion Gap 6 mmol/L (2-11); BUN/Creatinine Ratio 14.8 (8-20); Blood Urea Nitrogen 9 mg/dL (6-24); CO2 Carbon Dioxide 26 mmol/L (22-32); Calcium 9.1 mg/dL (8.6-10.3); Chloride 100 mmol/L (101-111); EGFR African American 144.4 (>60); EGFR Non-African American 112.3 (>60); Globulin 4.6 g/dL (2-4); Glucose 198 mg/dL (70-100); Lipase < 10 U/L (11.0-82.0); Potassium 3.5 mmol/L (3.5-5.0); Sodium 132 mmol/L (133-145)
[2017-03-23 19:37] LABS: Add Path Review? YES; Neutrophil % 75 % (38-83); RBC Morphology Normal (Normal); Reactive Lymph % 5 % (0-6)
[2017-03-23 21:07] LABS: Erythrocyte Sed Rate 96 mm/Hr (0-14)
--- NOTE | 2017-03-23 21:25 | RAD ---
INDICATION: Left flank pain COMPARISON: CT March 11, 2017 TECHNIQUE: Noncontrast axial source images were acquired from the level hemidiaphragms to the symphysis pubis as part of CT imaging for renal stone. The examination is significantly limited due to patient size. There is artifact from the gantry. Lung bases: The lung bases are clear. Liver: The liver is normal in size. Noncontrast imaging shows no evidence of a hepatic mass or ductal dilatation. Gallbladder: Cholecystectomy. Spleen: The spleen is normal in size. The noncontrast CT appearance is normal. Pancreas: Noncontrast imaging shows no pancreatic mass or ductal dilitation. Adrenal glands: No masses are identified. Kidneys/Bladder: There is no evidence of nephrolithiasis or CT evidence of hydronephrosis. Noncontrast imaging shows no evidence of a renal mass. The bladder is unremarkable.. Adenopathy: There is no evidence of intraperitoneal or retroperitoneal adenopathy. Evaluation is limited without oral contrast. Fluid collections: There are no free or localized fluid collections. Vessels: The aorta and iliac vessels are normal in caliber. There are no significant atherosclerotic changes. The IVC appears normal Pelvic organs: The uterus and adnexa appear normal GI tract: Evaluation of the bowel is limited without oral contrast. The stomach, small bowel, and lower GI tract appear grossly normal. There are no obstructive findings. The appendix is visualized and appears normal. Soft tissues: No soft tissue abnormalities of the extraperitoneal abdomen or pelvis are identified. Osseous structures: There are no acute osseous findings. IMPRESSION: NO ACUTE CT FINDINGS OR INTERVAL CHANGES SINCE MARCH 19, 2017
[2017-03-23 21:34] LABS: Urine Bilirubin Negative (Negative); Urine Glucose 1+(50 mg/dL) (Negative); Urine Nitrite Negative (Negative)
[2017-03-23] MEDS ORDERED: HYDROcodone/ACETAMIN 5-325 MG* 1 TAB PO ONE (22:17)
[2017-03-23 22:52] VITALS: BP 124/71
--- NOTE | 2017-03-25 16:56 | ED ---
I, Ezra,Sotony, scribed for Sanjay Velazquez MD on 03/23/17 at 1849 . Abdominal Pain/Female - HPI Summary HPI Summary: This 36 y/o female presents to ED for acute on chronic diffuse abd pain since a week ago. Positive n/v/d, and decreased appetite. PMHx is complex with vasculitis, DM type I, gastroparesis, and HLD. Pt was evaluated in ED for similar abd complaint 4 days ago and a month ago. - History of Current Complaint Chief Complaint: EDAbdPain Stated Complaint: N/V/D Time Seen by Provider: 03/23/17 17:59 Hx Obtained From: Patient, Medical Records Hx Last Menstrual Period: October 07 Onset/Duration: Sudden Onset, Still Present Location: Diffuse Radiates: No Character: Dull Aggravating Factor(s): Nothing Alleviating Factor(s): Nothing Associated Signs and Symptoms: Positive: Decreased Appetite, Nausea, Vomiting, Diarrhea. Negative: Fever Allergies/Adverse Reactions: Allergies Allergy/AdvReac Type Severity Reaction Status Date / Time Asenapine Allergy Rash Verified 02/01/17 22:06 Bee Venom Allergy Anaphylatic Verified 02/01/17 22:06 Shock Nalbuphine [From Nubain] Allergy Rash Verified 02/01/17 22:06 Paroxetine [From Paxil] Allergy Vomiting Verified 02/01/17 22:06 Sulfa Antibiotics Allergy Unknown Verified 02/01/17 22:06 Reaction Details Sulfamethoxazole Allergy Unknown Verified 02/01/17 22:06 w/Trimethoprim Reaction [From Bactrim] Details Tramadol Allergy Rash Verified 02/01/17 22:06 zepeda Allergy Nausea And Uncoded 02/01/17 22:06 Vomiting PMH/Surg Hx/FS Hx/Imm Hx Endocrine/Hematology History: Reports: Hx Diabetes - type 1 - ON INSULIN Cardiovascular History: Reports: Hx Angina, Hx Hypercholesterolemia, Other Cardiovascular Problems/Disorders - vasculitis. tachycardia Denies: Hx Coronary Artery Disease, Hx Hypertension, Hx Myocardial Infarction , Hx Peripheral Vascular Disease, Hx Valvular Heart Disease Respiratory History: Reports: Hx Asthma Denies: Hx Chronic Obstructive Pulmonary Disease (COPD) GI History: Reports: Hx Crohn's Disease, Hx Gastroesophageal Reflux Disease, Other GI Disorders - gastroparesis History: Reports: Other Problems/Disorders - PCOS, abnormal pap; + HPV Denies: Hx Dialysis, Hx Renal Disease Musculoskeletal History: Denies: Hx Arthritis, Hx Osteoporosis Sensory History: Reports: Hx Contacts or Glasses Denies: Hx Hearing Aid Opthamlomology History: Reports: Hx Contacts or Glasses Neurological History: Denies: Hx Headaches, Hx Seizures, Hx Transient Ischemic Attacks (TIA) Psychiatric History: Reports: Hx Anxiety, Hx Depression, Hx Post Traumatic Stress Disorder, Hx Bipolar Disorder, Other Psychiatric Issues/Disorders - Borderline Personality Disorder - Surgical History Surgery Procedure, Year, and Place: Cholecystectomy. Cardiac Catherterization Infectious Disease History: Reports: Hx of Known/Suspected MRSA - treated. noncarrier now Denies: Traveled Outside the [place] in Last 30 Days - Family History Known Family History: Positive: Cardiac Disease, Diabetes, Other - blood clots ( mother), pacemaker (father) Negative: Hypertension - Social History Alcohol Use: None Hx Substance Use: No Substance Use Type: Reports: None Hx Tobacco Use: Yes Smoking Status (MU): Current Every Day Smoker Type: Cigarettes Amount Used/How Often: 1/2 pack q day Have You Smoked in the Last Year: Yes Review of Systems Negative: Fever Positive: Abdominal Pain, Vomiting, Diarrhea, Nausea, Other - decreased appetite All Other Systems Reviewed And Are Negative: Yes Physical Exam Triage Information Reviewed: Yes Vital Signs On Initial Exam: Initial Vitals Temp Pulse Resp BP Pulse Ox 97.3 F 94 20 138/102 99 03/23/17 17:03 03/23/17 17:03 03/23/17 17:03 03/23/17 17:03 03/23/17 17:03 Vital Signs Reviewed: Yes Appearance: Positive: Well-Appearing, Obese Skin: Positive: Warm, Skin Color Reflects Adequate Perfusion, Dry Head/Face: Positive: Normal Head/Face Inspection Eyes: Positive: Normal Neck: Positive: Supple, Nontender Respiratory/Lung Sounds: Positive: Breath Sounds Present Cardiovascular: Positive: Normal Abdomen Description: Positive: Nontender, Soft Musculoskeletal: Positive: Normal Neurological: Positive: Normal Psychiatric: Positive: Affect/Mood Appropriate AVPU Assessment: Alert - Butch Coma Scale Coma Scale Total: 15 Diagnostics - Vital Signs Vital Signs Temp Pulse Resp BP Pulse Ox 03/23/17 17:03 97.3 F 94 20 138/102 99 - Laboratory Lab Results: Lab Results 03/23/17 03/23/17 03/23/17 Range/Units 18:30 18:30 18:30 WBC 22.7 H (3.5-10.8) 10^3/ul RBC 4.88 (4.0-5.4) 10^6/ul Hgb 13.5 (12.0-16.0) g/dl Hct 41 (35-47) % MCV 85 (80-97) fL MCH 28 (27-31) pg MCHC 33 (31-36) g/dl RDW 14 (10.5-15) % Plt Count 394 (150-450) 10^3/ul MPV 7 L (7.4-10.4) um3 Neut % (Auto) 69.4 (38-83) % Lymph % (Auto) 23.6 L (25-47) % Conway % (Auto) 6.1 (1-9) % Eos % (Auto) 0.5 (0-6) % Baso % (Auto) 0.4 (0-2) % Absolute Neuts (auto) 15.8 H (1.5-7.7) 10^3/ul Absolute Lymphs (auto) 5.4 H (1.0-4.8) 10^3/ul Absolute Monos (auto) 1.4 H (0-0.8) 10^3/ul Absolute Eos (auto) 0.1 (0-0.6) 10^3/ul Absolute Basos (auto) 0.1 (0-0.2) 10^3/ul Absolute Nucleated RBC 0 10^3/ul Neutrophils % 75 (38-83) % Lymphocytes % 18 L (25-47) % Reactive Lymphs % 5 (0-6) % Monocytes % 2 (0-13) % Nucleated RBC % 0 Normal RBC Morphology Normal (Normal) ESR 96 H (0-14) mm/Hr Hem Pathologist Commnt Sodium 132 L (133-145) mmol/L Potassium 3.5 (3.5-5.0) mmol/L Chloride 100 L (101-111) mmol/L Carbon Dioxide 26 (22-32) mmol/L Anion Gap 6 (2-11) mmol/L BUN 9 (6-24) mg/dL Creatinine 0.61 (0.51-0.95) mg/dL Est GFR ( Amer) 144.4 (>60) Est GFR (Non-Af Amer) 112.3 (>60) BUN/Creatinine Ratio 14.8 (8-20) Glucose 198 H (70-100) mg/dL Lactic Acid 2.1 H* (0.5-2.0) mmol/L Calcium 9.1 (8.6-10.3) mg/dL Total Bilirubin 0.30 (0.2-1.0) mg/dL AST 12 L (13-39) U/L ALT 14 (7-52) U/L Alkaline Phosphatase 134 H (34-104) U/L C-Reactive Protein 42.70 H (< 5.00) mg/L Total Protein 8.0 (6.4-8.9) g/dL Albumin 3.4 (3.2-5.2) g/dL Globulin 4.6 H (2-4) g/dL Albumin/Globulin Ratio 0.7 L (1-3) Amylase 18 L (29-103) U/L Lipase < 10 L (11.0-82.0) U/L Urine Color Urine Appearance Urine pH (5-9) Ur Specific [place] (1.010-1.030) Urine Protein (Negative) Urine Ketones (Negative) Urine Blood (Negative) Urine Nitrate (Negative) Urine Bilirubin (Negative) Urine Urobilinogen (Negative) Ur Leukocyte Esterase (Negative) Urine Glucose (Negative) Urine Ascorbic Acid (Negative) 03/23/17 Range/Units 21:20 WBC (3.5-10.8) 10^3/ul RBC (4.0-5.4) 10^6/ul Hgb (12.0-16.0) g/dl Hct (35-47) % MCV (80-97) fL MCH (27-31) pg MCHC (31-36) g/dl RDW (10.5-15) % Plt Count (150-450) 10^3/ul MPV (7.4-10.4) um3 Neut % (Auto) (38-83) % Lymph % (Auto) (25-47) % Conway % (Auto) (1-9) % Eos % (Auto) (0-6) % Baso % (Auto) (0-2) % Absolute Neuts (auto) (1.5-7.7) 10^3/ul Absolute Lymphs (auto) (1.0-4.8) 10^3/ul Absolute Monos (auto) (0-0.8) 10^3/ul Absolute Eos (auto) (0-0.6) 10^3/ul Absolute Basos (auto) (0-0.2) 10^3/ul Absolute Nucleated RBC 10^3/ul Neutrophils % (38-83) % Lymphocytes % (25-47) % Reactive Lymphs % (0-6) % Monocytes % (0-13) % Nucleated RBC % Normal RBC Morphology (Normal) ESR (0-14) mm/Hr Hem Pathologist Commnt Sodium (133-145) mmol/L Potassium (3.5-5.0) mmol/L Chloride (101-111) mmol/L Carbon Dioxide (22-32) mmol/L Anion Gap (2-11) mmol/L BUN (6-24) mg/dL Creatinine (0.51-0.95) mg/dL Est GFR ( Amer) (>60) Est GFR (Non-Af Amer) (>60) BUN/Creatinine Ratio (8-20) Glucose (70-100) mg/dL Lactic Acid (0.5-2.0) mmol/L Calcium (8.6-10.3) mg/dL Total Bilirubin (0.2-1.0) mg/dL AST (13-39) U/L ALT (7-52) U/L Alkaline Phosphatase (34-104) U/L C-Reactive Protein (< 5.00) mg/L Total Protein (6.4-8.9) g/dL Albumin (3.2-5.2) g/dL Globulin (2-4) g/dL Albumin/Globulin Ratio (1-3) Amylase (29-103) U/L Lipase (11.0-82.0) U/L Urine Color Yellow Urine Appearance Clear Urine pH 6.0 (5-9) Ur Specific [place] 1.014 (1.010-1.030) Urine Protein Negative (Negative) Urine Ketones Negative (Negative) Urine Blood Negative (Negative) Urine Nitrate Negative (Negative) Urine Bilirubin Negative (Negative) Urine Urobilinogen Negative (Negative) Ur Leukocyte Esterase Negative (Negative) Urine Glucose 1+(50 mg/dl) H (Negative) Urine Ascorbic Acid * H (Negative) Result Diagrams: 03/23/17 18:30 03/23/17 18:30 Lab Statement: Any lab studies that have been ordered have been reviewed, and results considered in the medical decision making process. - Radiology CXR Xray Interpretation: No Acute Changes Radiology Interpretation Completed By: Radiologist - CT Ab/P CT Interpretation: No Acute Changes - No change from March 19, 2017 CT Interpretation Completed By: Radiologist Re-Evaluation - Re-Evaluation First Eval Re-Evaluation Time: 22:13 Comment: MD in room to update pt with bloodwork and rheumatology consult. Abdominal Pain Fem Course/Dx - Course Course Of Treatment: Ms. Leigh gradually improved here in the ED and her W/U was essentially uncahged from previous. I will D/C her and encourage close F/U. - Diagnoses Provider Diagnoses: Abdominal pain - Provider Notifications Discussed Care Of Patient With: Mike Maradiaga Time Discussed With Above Provider: 22:09 Discharge - Discharge Plan Condition: Stable Disposition: HOME Patient Education Materials: Abdominal Pain (ED) Referrals: Kimberlyn Dhillon MD [Primary Care Provider] - 2 Days The documentation as recorded by the Ezra ruelas Soohyun accurately reflects the service I personally performed and the decisions made by , Sanjay Velazquez MD.
== END 2017-03-23 22:54 | disposition home or self-care (01) ==
LOC: ED 16:59
DX: R10.9 Unspecified abdominal pain (principal); E10.9 Type 1 diabetes mellitus without complications; Z79.4 Long term (current) use of insulin; E78.00 Pure hypercholesterolemia, unspecified; F17.210 Nicotine dependence, cigarettes, uncomplicated; E78.5 Hyperlipidemia, unspecified
CPT/HCPCS: 36415; 71010; 74176; 80053; 81003; 82150; 83605; 83690; 85025; 85060; 85652; 86140; 96360; 96374; 96375; 99283; J2270; J2405

== ENCOUNTER 2017-03-26 16:09 | Emergency (ER) | payer OTHER ==
[2017-03-26] MEDS ORDERED: Ondansetron INJ* 2 MG/ML VIAL IV ONE ×2 (17:49→20:48)
[2017-03-26] MEDS ORDERED: NS 0.9% 1000 ML* 2,000 ML IV ONE ×2 (17:49→19:54)
[2017-03-26] MEDS ORDERED: LORazepam INJ* 2 MG/ML 1 ML VIAL IV PUSH ONE (17:57)
[2017-03-26] MEDS ORDERED: Morphine INJ* 4 MG/ML 1 ML SYRINGE IV ONE ×2 (17:58→20:48)
[2017-03-26 19:35] LABS: Hematocrit 39 % (35-47); Hemoglobin 12.7 g/dl (12.0-16.0); Mean Corpuscular HGB Conc 33 g/dl (31-36); Mean Corpuscular Hemoglobin 28 pg (27-31); Mean Corpuscular Volume 85 fL (80-97); Mean Platelet Volume 7 um3 (7.4-10.4); Red Blood Count 4.57 10^6/ul (4.0-5.4); Red Cell Distribution Width 13 % (10.5-15); White Blood Count 19.9 10^3/ul (3.5-10.8)
[2017-03-26 19:51] LABS: ALT 16 U/L (7-52); AST 19 U/L (13-39); Albumin 3.4 g/dL (3.2-5.2); Alkaline Phosphatase 126 U/L (34-104); Anion Gap 7 mmol/L (2-11); BUN/Creatinine Ratio 8.8 (8-20); Blood Urea Nitrogen 5 mg/dL (6-24); CO2 Carbon Dioxide 26 mmol/L (22-32); Calcium 9.2 mg/dL (8.6-10.3); Chloride 98 mmol/L (101-111); EGFR African American 156.1 (>60); EGFR Non-African American 121.4 (>60); Globulin 4.4 g/dL (2-4); Glucose 329 mg/dL (70-100); Lipase 11 U/L (11.0-82.0); Magnesium 1.5 mg/dL (1.9-2.7); Potassium 3.9 mmol/L (3.5-5.0); Sodium 131 mmol/L (133-145); Total Protein 7.8 g/dL (6.4-8.9)
--- NOTE | 2017-03-26 20:31 | ED ---
GI/ HPI - HPI Summary HPI Summary: 36F presents with n/v/d and abdominal pain for 2 weeks. She was seen here twice and CT both times normals. labs wbc was about 22. She states that she has lost 20 pounds in past two weeks. She cant keep anything down. She has not been taking zofran as it causes migraines. She was seen by her primary who tried to set up an appointment with GI who she has not heard back from. She states her abdominal pain is located in bilateral lower quadrants. She states the only thing that has changed is that her pain is a little more intense. She has normal pelvic ultrasound a couple weeks ago. She has been having diarrhea that is intermittent. She has not been able to provide a stool culture for anyone. No dysuria, frequency, urgency, flank pain or vaginal discharge. She denies any fevers. She states she vomits at least 5 times a day. She states that her sugars have been 100-300 but has not taken her insulin as has not eaten anything. She denies any chest pain or SOB. She has PMH of DM, gastroparesis, vasculitis. Also complains of bilateral eye itching and yellow drainage for a couple days. denies any foreign body. does not wear contacts. Last visit dr almazan spoke with dr burrell who was not impressed by labs. she is also being treated for thrush that is resolving. - History of Current Complaint Chief Complaint: EDAbdPain Time Seen by Provider: 03/26/17 17:48 Stated Complaint: ABD PAIN,NAUSEA,VOMITING Hx Last Menstrual Period: October 07 Pain Intensity: 9 - Additional Pertinent History Primary Care Physician: [id number] - Allergy/Home Medications Allergies/Adverse Reactions: Allergies Allergy/AdvReac Type Severity Reaction Status Date / Time Asenapine Allergy Rash Verified 03/26/17 16:17 Bee Venom Allergy Anaphylatic Verified 03/26/17 16:17 Shock Nalbuphine [From Nubain] Allergy Rash Verified 03/26/17 16:17 Paroxetine [From Paxil] Allergy Vomiting Verified 03/26/17 16:17 Sulfa Antibiotics Allergy Unknown Verified 03/26/17 16:17 Reaction Details Sulfamethoxazole Allergy Unknown Verified 03/26/17 16:17 w/Trimethoprim Reaction [From Bactrim] Details Tramadol Allergy Rash Verified 03/26/17 16:17 zepeda Allergy Nausea And Uncoded 03/26/17 16:17 Vomiting PMH/Surg Hx/FS Hx/Imm Hx Endocrine/Hematology History: Reports: Hx Diabetes - type 1 - ON INSULIN Cardiovascular History: Reports: Hx Angina, Hx Hypercholesterolemia, Other Cardiovascular Problems/Disorders - vasculitis. tachycardia Denies: Hx Coronary Artery Disease, Hx Hypertension, Hx Myocardial Infarction , Hx Peripheral Vascular Disease, Hx Valvular Heart Disease Respiratory History: Reports: Hx Asthma Denies: Hx Chronic Obstructive Pulmonary Disease (COPD) GI History: Reports: Hx Crohn's Disease, Hx Gastroesophageal Reflux Disease, Other GI Disorders - gastroparesis History: Reports: Other Problems/Disorders - PCOS, abnormal pap; + HPV Denies: Hx Dialysis, Hx Renal Disease Musculoskeletal History: Denies: Hx Arthritis, Hx Osteoporosis Sensory History: Reports: Hx Contacts or Glasses Denies: Hx Hearing Aid Opthamlomology History: Reports: Hx Contacts or Glasses Neurological History: Denies: Hx Headaches, Hx Seizures, Hx Transient Ischemic Attacks (TIA) Psychiatric History: Reports: Hx Anxiety, Hx Depression, Hx Post Traumatic Stress Disorder, Hx Bipolar Disorder, Other Psychiatric Issues/Disorders - Borderline Personality Disorder - Surgical History Surgery Procedure, Year, and Place: Cholecystectomy. 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 noncarrier now Denies: Traveled Outside the [place] in Last 30 Days - Family History Known Family History: Positive: Cardiac Disease, Diabetes, Other - blood clots ( mother), pacemaker (father) Negative: Hypertension - Social History Alcohol Use: None Hx Substance Use: No Substance Use Type: Reports: None Hx Tobacco Use: Yes Smoking Status (MU): Current Every Day Smoker Type: Cigarettes Amount Used/How Often: 1/2 pack q day Have You Smoked in the Last Year: Yes Review of Systems Negative: Fever Positive: Drainage, Erythema Negative: Chest Pain Negative: Shortness Of Breath Positive: Abdominal Pain, Vomiting, Diarrhea, Nausea All Other Systems Reviewed And Are Negative: Yes Physical Exam Triage Information Reviewed: Yes Vital Signs On Initial Exam: Initial Vitals Temp Pulse Resp BP Pulse Ox 97 F 102 20 129/85 96 03/26/17 16:17 03/26/17 16:17 03/26/17 16:17 03/26/17 16:17 03/26/17 16:17 Vital Signs Reviewed: Yes Appearance: Positive: Well-Appearing Skin: Positive: Warm, Dry Head/Face: Positive: Normal Head/Face Inspection Eyes: Positive: Normal, EOMI, RICO, Conjunctiva Inflammed, Discharge - yellow ENT: Positive: Normal ENT inspection, Pharynx normal, TMs normal - Butch Coma Scale Coma Scale Total: 15 Diagnostics - Vital Signs Vital Signs Temp Pulse Resp BP Pulse Ox 03/26/17 19:30 16 03/26/17 19:29 16 03/26/17 19:16 97.5 F 77 18 130/85 98 03/26/17 16:17 97 F 102 20 129/85 96 - Laboratory Lab Results: Lab Results 03/26/17 03/26/17 03/26/17 Range/Units 19:25 19:25 19:25 WBC 19.9 H (3.5-10.8) 10^3/ul RBC 4.57 (4.0-5.4) 10^6/ul Hgb 12.7 (12.0-16.0) g/dl Hct 39 (35-47) % MCV 85 (80-97) fL MCH 28 (27-31) pg MCHC 33 (31-36) g/dl RDW 13 (10.5-15) % Plt Count 392 (150-450) 10^3/ul MPV 7 L (7.4-10.4) um3 Neut % (Auto) 73.8 (38-83) % Lymph % (Auto) 21.2 L (25-47) % [place] % (Auto) 4.7 (1-9) % Eos % (Auto) 0.2 (0-6) % Baso % (Auto) 0.1 (0-2) % Absolute Neuts (auto) 14.7 H (1.5-7.7) 10^3/ul Absolute Lymphs (auto) 4.2 (1.0-4.8) 10^3/ul Absolute Monos (auto) 0.9 H (0-0.8) 10^3/ul Absolute Eos (auto) 0 (0-0.6) 10^3/ul Absolute Basos (auto) 0 (0-0.2) 10^3/ul Absolute Nucleated RBC 0.02 10^3/ul Nucleated RBC % 0.1 Sodium 131 L (133-145) mmol/L Potassium 3.9 (3.5-5.0) mmol/L Chloride 98 L (101-111) mmol/L Carbon Dioxide 26 (22-32) mmol/L Anion Gap 7 (2-11) mmol/L BUN 5 L (6-24) mg/dL Creatinine 0.57 (0.51-0.95) mg/dL Est GFR ( Amer) 156.1 (>60) Est GFR (Non-Af Amer) 121.4 (>60) BUN/Creatinine Ratio 8.8 (8-20) Glucose 329 H (70-100) mg/dL Lactic Acid 2.5 H* (0.5-2.0) mmol/L Calcium 9.2 (8.6-10.3) mg/dL Magnesium 1.5 L (1.9-2.7) mg/dL Total Bilirubin 0.30 (0.2-1.0) mg/dL AST 19 (13-39) U/L ALT 16 (7-52) U/L Alkaline Phosphatase 126 H (34-104) U/L C-React Prot High Sens 28.46 mg/L Total Protein 7.8 (6.4-8.9) g/dL Albumin 3.4 (3.2-5.2) g/dL Globulin 4.4 H (2-4) g/dL Albumin/Globulin Ratio 0.8 L (1-3) Lipase 11 (11.0-82.0) U/L Beta HCG, Quant < 0.60 mIU/mL Result Diagrams: 03/26/17 19:25 03/26/17 19:25 Lab Statement: Any lab studies that have been ordered have been reviewed, and results considered in the medical decision making process. - CT abd CT Interpretation: No Acute Changes CT Interpretation Completed By: Radiologist Re-Evaluation - Re-Evaluation First Eval Re-Evaluation Time: 21:00 Change: Unchanged Comment: still feels bad Second Eval Re-Evaluation Time: 23:40 Change: Unchanged Comment: still in pain GIGU Course/Dx - Course Course Of Treatment: 36F presents with n/v/d and abdominal pain for 2 weeks. She was seen here twice and CT both times normals. labs wbc was about 22. She states that she has lost 20 pounds in past two weeks. She cant keep anything down. She has not been taking zofran as it causes migraines. She was seen by her primary who tried to set up an appointment with GI who she has not heard back from. She states her abdominal pain is located in bilateral lower quadrants. She states the only thing that has changed is that her pain is a little more intense. She has normal pelvic ultrasound a couple weeks ago. She has been having diarrhea that is intermittent. She has not been able to provide a stool culture for anyone. No dysuria, frequency, urgency, flank pain or vaginal discharge. She denies any fevers. She states she vomits at least 5 times a day. She states that her sugars have been 100-300 but has not taken her insulin as has not eaten anything. She denies any chest pain or SOB. She has PMH of DM, gastroparesis, vasculitis. on exam mildly tender in lower quadrants. does not appear in pain distress. able to ambulate around ED with issue. labs wbc 19 which is better. discussed with dr almazan and dr crockett who agree that labs not that impressive as WBC going down and normal CT does not need to be admitted. advised to use ativan prescribed to potenital try for nausea. told that needs GI follow up as potentially IBS but needs colonscopy likely. on exam also has injected conjunctiva and yellow discharge so will treat with cipro as allergic to bactrim and wants drops. patient understands and agrees with plan. - Diagnoses Differential Diagnoses - Female: Appendicitis, Gastroenteritis (Viral), Gastroenteritis (Bacterial), Irritable Bowel Syndrome, Urinary Tract Infection Provider Diagnoses: Abdominal pain, Nausea & vomiting, Conjunctivitis Discharge - Discharge Plan Condition: Good Disposition: HOME Patient Education Materials: Abdominal Pain (ED), Conjunctivitis (ED) Referrals: Patel Bhat MD [Medical Doctor] - Kimberlyn Dhillon MD [Primary Care Provider] - Additional Instructions: Place 1 drop in eye four times a day for 4 days Wash hands after touching eye Follow up with GI about stomach issues Take tyenlol every 6 hours for pain Drink fluids and follow a clear liquid diet until symptoms improve Return to ED if develop any new or worsening symptoms
[2017-03-26] MEDS ORDERED: Iodixanol* (CONTRAST) 320 MG/ML 100 ML SDV IV ONE (21:21)
[2017-03-26 21:25] LABS: Urine Bilirubin Negative (Negative); Urine Glucose 3+(>=500 mg/dL) (Negative); Urine Nitrite Negative (Negative)
[2017-03-26] MEDS ORDERED: NS 0.9% 1000 ML* 1,000 ML IV ONE (23:32)
[2017-03-27] MEDS ORDERED: Ciprofloxacin 0.3% OPTH.SOL* 2.5 ML BTL BOTH EYES ONE (00:19)
[2017-03-27] MEDS ORDERED: HYDROcodone/ACETAMIN 5-325 MG* 1 TAB PO ONE (00:22)
[2017-03-27 00:49] VITALS: BP 120/80
--- NOTE | 2017-03-27 08:15 | RAD ---
INDICATION: Abdominal pain lower abdomen. Occasional vomiting, diarrhea, weakness. Post cholecystectomy. Diabetic. COMPARISON: March 23, 2017 TECHNIQUE: Multidetector CT images were obtained from the lung bases to the ischial tuberosities with 141 mL Visipaque 320 IV and oral contrast. Multiplanar reformation. REPORT: Morbid obesity limits image quality. Unremarkable visualized inferior thorax. Post cholecystectomy. Negative for biliary dilatation. No diffuse or focal abnormality of the liver. Unremarkable pancreas and spleen. Negative for CT abnormality of the upper GI, small bowel, or appendix visualized extending medial and posterior along the RIGHT pelvic sidewall. Unremarkable colon. Enteric contrast extends to the rectum. Negative for ascites, free air, hernias. Normal adrenal glands. Unremarkable kidneys with symmetric nephrograms and pyelograms. Unremarkable ureters and partially distended urinary bladder. Unremarkable uterus and adnexal regions. Negative for lymphadenopathy. Normal diameter abdominal aorta and iliac arteries. Physiologic distention of the IVC. Diffuse mild muscle atrophy. Dependent subcutaneous edema. 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 IMPRESSION: No acute abdominal pelvic pathologic process evident.
== END 2017-03-27 00:50 | disposition home or self-care (01) ==
LOC: ED 16:09
DX: R10.9 Unspecified abdominal pain (principal); R11.2 Nausea with vomiting, unspecified; H10.9 Unspecified conjunctivitis
CPT/HCPCS: 36415; 74177; 80053; 81003; 83605; 83690; 83735; 84702; 85025; 86141; 99283; A9270-GY; J2060; J2270; J2405; Q9967

== ENCOUNTER 2017-03-31 17:45 | Inpatient (IN) | payer OTHER ==
[2017-03-31] MEDS ORDERED: Ondansetron INJ* 2 MG/ML VIAL IV ONE (18:29)
[2017-03-31] MEDS ORDERED: NS 0.9% 1000 ML* 1,000 ML IV ONE (18:29)
[2017-03-31] MEDS ORDERED: Morphine INJ* 4 MG/ML 1 ML SYRINGE IV ONE (18:29)
[2017-03-31 18:47] LABS: Hematocrit 39 % (35-47); Hemoglobin 12.6 g/dl (12.0-16.0); Mean Corpuscular HGB Conc 33 g/dl (31-36); Mean Corpuscular Hemoglobin 28 pg (27-31); Mean Corpuscular Volume 85 fL (80-97); Mean Platelet Volume 7 um3 (7.4-10.4); Red Blood Count 4.54 10^6/ul (4.0-5.4); Red Cell Distribution Width 14 % (10.5-15); White Blood Count 18.6 10^3/ul (3.5-10.8)
[2017-03-31 19:04] LABS: Albumin 3.3 g/dL (3.2-5.2); BUN/Creatinine Ratio 9.6 (8-20); C Reactive Protein 38.42 mg/L (< 5.00); Calcium 8.9 mg/dL (8.6-10.3); EGFR African American 173.6 (>60); Globulin 4.1 g/dL (2-4); Magnesium 1.5 mg/dL (1.9-2.7); Potassium 3.6 mmol/L (3.5-5.0); Total Bilirubin 0.3 mg/dL (0.2-1.0); Total Protein 7.4 g/dL (6.4-8.9)
[2017-03-31] MEDS ORDERED: Acetaminophen TAB* 325 MG PO PRN (20:34)
--- NOTE | 2017-03-31 21:03 | ED ---
Segundo Richmond Benjamin, scribed for Nellie Smith MD on 03/31/17 at 1924 . Abdominal Pain/Female - HPI Summary HPI Summary: 36yo female c/o nausea, intermittent vomiting and diarrhea with weakness and suprapubic abdominal pain. Pt was seen for same symptoms 4 weeks ago. Pt reports vomiting x4-5 per day and unable to keep any fluids down due to her nausea and vomiting. Pt was septic last time when she was having similar symptoms. Pt denies back pain, chance of , or being sexually active. Pt says her abdominal pain worsens when standing up and pain radiates down to her legs at times. PMHx of Gastrophoresis, HLD, DM and vasculitis on skin - History of Current Complaint Chief Complaint: EDAbdPain Stated Complaint: VOMITING,DIARRHEA Time Seen by Provider: 03/31/17 18:05 Hx Obtained From: Patient Hx Last Menstrual Period: October 07 Onset/Duration: Lasting Weeks, Still Present Timing: Intermittent Episode Lasting Severity Initially: Mild Severity Currently: Mild Pain Intensity: 3 Pain Scale Used: 0-10 Numeric Location: Suprapubic Radiates: Yes Radiates to: Other - legs Aggravating Factor(s): Other: - standing Alleviating Factor(s): Position - lying down Associated Signs and Symptoms: Positive: Decreased Appetite, Nausea, Vomiting, Diarrhea. Negative: Fever, Cough, Chest Pain, Back Pain, Vaginal Bleeding Allergies/Adverse Reactions: Allergies Allergy/AdvReac Type Severity Reaction Status Date / Time Asenapine Allergy Rash Verified 03/26/17 16:17 Bee Venom Allergy Anaphylatic Verified 03/26/17 16:17 Shock Nalbuphine [From Nubain] Allergy Rash Verified 03/26/17 16:17 Paroxetine [From Paxil] Allergy Vomiting Verified 03/26/17 16:17 Sulfa Antibiotics Allergy Unknown Verified 03/26/17 16:17 Reaction Details Sulfamethoxazole Allergy Unknown Verified 03/26/17 16:17 w/Trimethoprim Reaction [From Bactrim] Details Tramadol Allergy Rash Verified 03/26/17 16:17 zepeda Allergy Nausea And Uncoded 03/26/17 16:17 Vomiting PMH/Surg Hx/FS Hx/Imm Hx Endocrine/Hematology History: Reports: Hx Diabetes - type 1 - ON INSULIN Cardiovascular History: Reports: Hx Angina, Hx Hypercholesterolemia, Other Cardiovascular Problems/Disorders - vasculitis. tachycardia Denies: Hx Coronary Artery Disease, Hx Hypertension, Hx Myocardial Infarction , Hx Peripheral Vascular Disease, Hx Valvular Heart Disease Respiratory History: Reports: Hx Asthma Denies: Hx Chronic Obstructive Pulmonary Disease (COPD) GI History: Reports: Hx Crohn's Disease, Hx Gastroesophageal Reflux Disease, Other GI Disorders - gastroparesis History: Reports: Other Problems/Disorders - PCOS, abnormal pap; + HPV Denies: Hx Dialysis, Hx Renal Disease Musculoskeletal History: Denies: Hx Arthritis, Hx Osteoporosis Sensory History: Reports: Hx Contacts or Glasses Denies: Hx Hearing Aid Opthamlomology History: Reports: Hx Contacts or Glasses Neurological History: Denies: Hx Headaches, Hx Seizures, Hx Transient Ischemic Attacks (TIA) Psychiatric History: Reports: Hx Anxiety, Hx Depression, Hx Post Traumatic Stress Disorder, Hx Bipolar Disorder, Other Psychiatric Issues/Disorders - Borderline Personality Disorder - Surgical History Surgery Procedure, Year, and Place: Cholecystectomy. 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 noncarrier now Denies: Traveled Outside the [place] in Last 30 Days - Family History Known Family History: Positive: Cardiac Disease, Diabetes, Other - blood clots ( mother), pacemaker (father) Negative: Hypertension - Social History Occupation: Unemployed Lives: Jail Alcohol Use: None Hx Substance Use: No Substance Use Type: Reports: None Hx Tobacco Use: Yes Smoking Status (MU): Current Every Day Smoker Type: Cigarettes Amount Used/How Often: 1/2 pack q day Have You Smoked in the Last Year: Yes Review of Systems Constitutional: Negative Negative: Fever, Chills Eyes: Negative ENT: Negative Cardiovascular: Negative Respiratory: Negative Positive: Abdominal Pain - suprapubic, Vomiting, Diarrhea, Nausea, Other - loss of appetite Genitourinary: Negative Musculoskeletal: Negative Skin: Negative Positive: Weakness Psychological: Normal All Other Systems Reviewed And Are Negative: Yes Physical Exam Triage Information Reviewed: Yes Vital Signs On Initial Exam: Initial Vitals Temp Pulse Resp BP Pulse Ox 97.6 F 94 22 128/87 100 03/31/17 17:52 03/31/17 17:52 03/31/17 17:52 03/31/17 17:52 03/31/17 17:52 Vital Signs Reviewed: Yes Appearance: Positive: Ill-Appearing - mildly ill appearing, Pain Distress - mild discomfort, Obese - morbidly obese Skin: Positive: Warm, Skin Color Reflects Adequate Perfusion, Dry Head/Face: Positive: Normal Head/Face Inspection Eyes: Positive: EOMI, RICO ENT: Positive: Normal ENT inspection Neck: Positive: Supple, Nontender Respiratory/Lung Sounds: Positive: Clear to Auscultation, Breath Sounds Present Cardiovascular: Positive: RRR Abdomen Description: Positive: Soft, Other: - lower abdomen tenderness Bowel Sounds: Positive: Present Musculoskeletal: Positive: Strength/ROM Intact Neurological: Positive: Sensory/Motor Intact, Alert, Oriented to Person Place, Time, CN Intact II-III Psychiatric: Positive: Affect/Mood Appropriate Diagnostics - Vital Signs Vital Signs Temp Pulse Resp BP Pulse Ox 03/31/17 19:11 18 03/31/17 18:30 86 132/78 99 03/31/17 18:17 82 99 03/31/17 18:14 110/96 03/31/17 18:09 97.6 F 87 18 110/96 100 03/31/17 17:52 97.6 F 94 22 128/87 100 - Laboratory Lab Results: Lab Results 03/31/17 03/31/17 03/31/17 Range/Units 18:37 18:37 18:37 WBC 18.6 H (3.5-10.8) 10^3/ul RBC 4.54 (4.0-5.4) 10^6/ul Hgb 12.6 (12.0-16.0) g/dl Hct 39 (35-47) % MCV 85 (80-97) fL MCH 28 (27-31) pg MCHC 33 (31-36) g/dl RDW 14 (10.5-15) % Plt Count 396 (150-450) 10^3/ul MPV 7 L (7.4-10.4) um3 Neut % (Auto) 70.2 (38-83) % Lymph % (Auto) 22.8 L (25-47) % [place] % (Auto) 5.4 (1-9) % Eos % (Auto) 0.4 (0-6) % Baso % (Auto) 1.2 (0-2) % Absolute Neuts (auto) 13.1 H (1.5-7.7) 10^3/ul Absolute Lymphs (auto) 4.2 (1.0-4.8) 10^3/ul Absolute Monos (auto) 1.0 H (0-0.8) 10^3/ul Absolute Eos (auto) 0.1 (0-0.6) 10^3/ul Absolute Basos (auto) 0.2 (0-0.2) 10^3/ul Absolute Nucleated RBC 0.01 10^3/ul Nucleated RBC % 0 Sodium 133 (133-145) mmol/L Potassium 3.6 (3.5-5.0) mmol/L Chloride 100 L (101-111) mmol/L Carbon Dioxide 26 (22-32) mmol/L Anion Gap 7 (2-11) mmol/L BUN 5 L (6-24) mg/dL Creatinine 0.52 (0.51-0.95) mg/dL Est GFR ( Amer) 173.6 (>60) Est GFR (Non-Af Amer) 135.0 (>60) BUN/Creatinine Ratio 9.6 (8-20) Glucose 296 H (70-100) mg/dL Lactic Acid 2.6 H* (0.5-2.0) mmol/L Calcium 8.9 (8.6-10.3) mg/dL Magnesium 1.5 L (1.9-2.7) mg/dL Total Bilirubin 0.30 (0.2-1.0) mg/dL AST 11 L (13-39) U/L ALT 12 (7-52) U/L Alkaline Phosphatase 116 H (34-104) U/L C-Reactive Protein 38.42 H (< 5.00) mg/L Total Protein 7.4 (6.4-8.9) g/dL Albumin 3.3 (3.2-5.2) g/dL Globulin 4.1 H (2-4) g/dL Albumin/Globulin Ratio 0.8 L (1-3) Lipase 10 L (11.0-82.0) U/L Result Diagrams: 03/31/17 18:37 03/31/17 18:37 Lab Statement: Any lab studies that have been ordered have been reviewed, and results considered in the medical decision making process. Abdominal Pain Fem Course/Dx - Course Course Of Treatment: Reviewed pts medication and allergy lists. Discussed with Dr. Penaloza (hospitalist) at 19:31. Discussed with Dr. Guevara (radiologist ) at 19:44. Pt has chronically elevated white count and Lactic acid. Pt also has has known vasculitis and is on prednisone with [address] Not clear if this pt is septic given her chronically elevated white count, and we are holding on abx for now, Dr. Penaloza will come in and evaluate the pt. 36 yo female with lower abd pain complaint with abnormal labs over the last 3 visits, Dr. Penaloza admitted pt - Diagnoses Provider Diagnoses: Abdominal pain Discharge - Discharge Plan Condition: Stable Disposition: ADMITTED TO [facility] Referrals: Kimberlyn Dhillon MD [Primary Care Provider] - The documentation as recorded by the Segundo ruelas Benjamin accurately reflects the service I personally performed and the decisions made by me, Nellie Smith MD.
[2017-03-31] MEDS ORDERED: Haloperidol TAB* 1 MG PO PRN (21:11)
[2017-03-31] MEDS ORDERED: LORazepam TAB(*) 0.5 MG PO PRN (21:11)
[2017-03-31] MEDS ORDERED: Mirtazapine TAB* 15 MG PO PRN (21:11)
[2017-03-31] MEDS ORDERED: Calcium Carbonate CHEW TAB* 500 MG (TUMS) PO PRN (21:11)
[2017-03-31] MEDS ORDERED: Albuterol HFA INHALER* 8 gm MDI INH PRN (21:11)
[2017-03-31] MEDS ORDERED: Simethicone CHEW TAB* 80 MG PO PRN (21:11)
[2017-03-31] MEDS ORDERED: Loperamide CAP* 2 MG PO PRN (21:11)
[2017-03-31] MEDS ORDERED: Dextrose 50% Syringe 50 ML* 25 GM/50 ML SYRINGE IV PUSH PRN (22:04)
[2017-03-31] MEDS: Mometasone 220 MCG MDI INH SCH (22:49)
[2017-03-31] MEDS: Morphine INJ* 2 MG/ML 1 ML SYRINGE IV PRN (22:51)
[2017-03-31] MEDS: NS 0.9% 1000 ML* 1,000 ML IV SCH (22:54)
[2017-03-31] MEDS: Prazosin CAP* 1 MG PO SCH (23:02)
[2017-03-31] MEDS: Prazosin CAP* 5 MG PO SCH (23:03)
[2017-03-31] MEDS: Zolpidem TAB* 10 MG PO SCH (23:03)
[2017-03-31] MEDS: Mycophenolate Mofetil TAB(*) 500 MG PO SCH (23:04)
[2017-03-31] MEDS: Insulin GLARGINE(*) 1 UNITS UNIT SUBCUT SCH (23:04)
--- NOTE | 2017-03-31 23:29 | HP ---
CC: Dr. Dhillon * HISTORY AND PHYSICAL: DATE OF ADMISSION: 03/31/17 PRIMARY CARE PROVIDER: Dr. Dhillon. BRIDAL SALES CONSULTANT: Dr. Maradiaga. SAP BODS DEVELOPER: Dr. Terrell. CHIEF COMPLAINT: Abdominal pain. HISTORY OF PRESENT ILLNESS: Ms. Leigh is a 36-year-old female who states that approximately 4 weeks ago, she began to get ill. She states initially it started with what she felt like was a sinus infection. She states that she was seen for this and was told to just let it run its course. She states that she shortly after the initiation of those symptoms lost her appetite. The patient states that around 03/15/17 to 03/16/17, the patient began have sharp pain that seemed to migrate around her abdomen. The patient states that she never truly had any fever or chills, but she did note that couple of weeks into her overall symptoms, she felt that she was having sweats. She states that the pain now is low in her pelvis. She feels like she is "sitting on her insides." She feels this in her vaginal area. The patient has not noticed any bulge in her vulva when standing or sitting. She did recently see Dr. Terrell on 03/15/17, at which time an ultrasound was performed as well as what the patient described as cervical biopsies. The patient denies any vaginal discharge. She states that she really has not been to eat any food since the onset of her symptoms approximately 4 weeks ago. She states that every time she tries to eat, she vomits. She does have a history of gastroparesis; however, in general, she states that she does not vomit with eating. She states the last time she had this vomiting, she was diagnosed with sepsis, but she was unable to tell me where the infection was. She states that the pain is worst when in an upright position such as sitting; however, she feels the discomfort also when lying in her side with her legs crossed together. She states that nothing improves the pain. Nothing helps with her appetite either. She denies any dysuria. She notes that her frequency of urination has decreased. She denies any constipation. She does state that she has been having intermittent diarrhea, however. She states because she has not eaten anything recently, she has not had any diarrhea recently. She states her last bowel movement was 2 to 3 days ago. She denies any vaginal discharge. PAST MEDICAL HISTORY: 1. Type 2 diabetes. 2. Super morbid obesity. 3. Gastroparesis. 4. Borderline personality disorder. 5. Irritable bowel syndrome. 6. PCOS. 7. Rosacea. 8. Thoracic and lumbosacral neuritis. 9. GERD. 10. Migraine without aura. 11. Asthma. 12. PTSD. 13. Depression. 14. Vasculitis limited to the skin. 15. Sicca syndrome with keratoconjunctivitis. PAST SURGICAL HISTORY: Cholecystectomy. MEDICATIONS: 1. Topamax 50 mg p.o. t.i.d. 2. Ambien 10 mg p.o. q.h.s. 3. Viibryd 20 mg p.o. b.i.d. 4. Melatonin 3 mg p.o. q.h.s. p.r.n. insomnia. 5. Lactobacillus 1 cap p.o. daily. 6. Gabapentin 300 mg p.o. q.a.m. and afternoon, 600 mg p.o. q.p.m. 7. Januvia 100 mg p.o. daily. 8. Lorazepam 1 mg p.o. b.i.d. p.r.n. anxiety. 9. Insulin Basaglar 120 units subcutaneous q.h.s. 10. Remeron 22.5 mg p.o. q.h.s. p.r.n. insomnia. 11. Flagyl apply topically daily to area of rosacea. 12. Benadryl 50 mg p.o. q.6 hours p.r.n. allergies. 13. Flovent Diskus 250 mcg 1 puff inhaled twice daily. 14. Biotin 10,000 mcg p.o. daily. 15. Lipitor 80 mg p.o. q.h.s. 16. Claritin 10 mg p.o. daily p.r.n. allergies. 17. Vitamin D 2000 units p.o. daily. 18. Nauzene 2 to 4 tabs p.o. daily p.r.n. nausea. 19. Naproxen sodium 220 mg p.o. q.8 hours p.r.n. pain. 20. Mycophenolate mofetil 1500 mg p.o. b.i.d. 21. Imodium AD 2 mg p.o. b.i.d. p.r.n. diarrhea. 22. EpiPen injected IM once daily p.r.n. allergic reaction. 23. Prednisone 10 mg p.o. daily. 24. Prazosin 6 mg p.o. q.h.s. 25. Lasix 40 mg p.o. daily. 26. Bentyl 10 mg p.o. b.i.d. 27. Capsaicin cream apply topically t.i.d. p.r.n. pain. 28. Carafate 1 g p.o. 4 times a day. 29. Fioricet 1 tab p.o. q.8 hours p.r.n. headache. 30. Protonix 40 mg p.o. daily. 31. Multivitamin 1 tab p.o. daily. 32. Ferrous sulfate 325 mg p.o. daily. 33. Lispro sliding scale subcutaneous q.a.c. 34. Simethicone 80 mg p.o. daily p.r.n. gas. 35. Metoprolol tartrate 50 mg p.o. b.i.d. 36. Haldol 1 mg p.o. q.6 hours p.r.n. hallucinations. 37. Albuterol 2 puffs inhaled q.6 hours p.r.n. shortness of breath. 38. Tums 1500 mg p.o. daily p.r.n. GERD. 39. Tylenol 650 mg p.o. q.6 hours p.r.n. pain. ALLERGIES: 1. ASENAPINE. 2. BEES. 3. NUBAIN. 4. TAXOL. 5. SULFA. 6. TRAMADOL. 7. FAMILY HISTORY: Mom at the age of 64 of heart disease. Dad is living, he is 62. He has diabetes and COPD. SOCIAL HISTORY: The patient smokes 2 to 3 cigarettes per day. She does not drink alcohol. She denies any recreational drugs. She is not working as she is disabled. She is not . She has no children. She states that she is not sexually active. She indicates that she is a female who has sex with other females. REVIEW OF SYSTEMS: The patient denies any fevers or chills. Her appetite has been poor as above. No chest pain currently but states that earlier on, she has had intermittent chest discomfort associated with the abdominal pain. No edema. She has noted that her hands has been swelling recently. She complaints of an occasional cough and very foul tasting postnasal drip. She describes this as metallic in taste. She admits to nausea, vomiting, abdominal pain, and diarrhea as above. She does state that she has had blood in her stool intermittently, but attributes this to her hemorrhoids. She has recently been diagnosed with thrush. She denies any hematuria. No dysuria. No focal weakness or sensory loss. She does complain of generalized weakness and dizziness and no sudden changes in vision. No dysphagia. No joint pains or muscles pain out of ordinary. No rashes. She admits to depression. PHYSICAL EXAMINATION GENERAL: The patient is a well-developed, super morbidly obese, young female, lying in the stretcher, in no acute distress. VITAL SIGNS: Blood pressure 132/78, pulse 86, respirations 18, temp 97.6, O2 sat 99% on room air. HEENT: Pupils are pinpoint. Extraocular muscles intact. Oropharynx is clear. Oral mucosa is moist. The patient is edentulous. There is no submandibular, cervical, or supraclavicular adenopathy. Thyroid is not enlarged. No thyroid nodules are noted, though this is a difficult exam given the patient's thick neck. PULMONARY: Lungs are clear to auscultation. CARDIAC: Normal S1, S2. Regular rate and rhythm. Heart sounds are distant. There is no lower extremity edema. ABDOMEN: Markedly obese. There are numerous scars noted on the abdomen. There is a small round ulceration with scant yellow discharge and slight erythema surrounding it on the left mid abdomen. She denies any tenderness to palpation of the upper abdomen. She is tender with me lifting her pannus and palpating in her pelvic area. [employer]: The patient's external genitalia exam revealed no evidence of vaginal discharge. With the patient bearing down, no evidence of uterine prolapse is noted. MUSCULOSKELETAL: There is no cyanosis or clubbing of the digits. There is full active range of motion. NEUROLOGIC: Cranial nerves II through XII are grossly intact. Sensation is intact to light touch throughout. Strength is 5/5 and symmetric in both upper and lower extremities bilaterally. SKIN: Warm and dry. There are no rashes. There is a small ulceration noted on the abdominal exam and numerous scars on the patient's arm that she states is related to her history of vasculitis and cutting in the past. PSYCH: The patient is alert. She is oriented x3. Affect appears appropriate. DIAGNOSTIC STUDIES/LAB DATA: Sodium 133, potassium 3.6, chloride 100, CO2 26, BUN 5, creatinine 0.52, glucose 296, calcium 8.9, magnesium 1.5, lactic acid 2.6. Albumin 3.3, AST 11, ALT 12, bilirubin 0.3, alk phos 116, CRP 38.42, lipase 10. WBC 18.6, hemoglobin 12.6, hematocrit 39, platelets 396. Urinalysis from 03/26/17 reveals clear urine without any signs of infection. CT abdomen and pelvis from 03/26/17 reveals no acute abdominopelvic pathologic process evident. ASSESSMENT AND PLAN: Ms. Leigh is a 36-year-old super morbidly obese female with a history of type 2 diabetes, gastroparesis, vasculitis limited to the skin , hyperlipidemia, hypertension, depression, posttraumatic stress disorder, borderline personality disorder and polycystic ovary syndrome, who presents to the emergency room with complaints of now 2 to 3 weeks of migrating abdominal pain now located to the low pelvis with an associated feeling of pressure in her vaginal area, lack of appetite and vomiting. 1. Abdominal pain. The patient has been worked up for this several times over the last few weeks. No clear etiology has been identified. The patient already carries a history of irritable bowel syndrome. Perhaps, this is what is causing her symptoms currently. The patient was due to see GI this coming Wednesday; however, she does not feel she can make it to that appointment. As the patient has now presented to the emergency room 4 times in the last approximately 2 weeks, I think it would be useful to have GI see the patient in the hospital. While porphyria seems like an unlikely diagnosis, I will go ahead and send off the urine porphobilinogen study. I did explain to the patient that it will take some time for this to come back. I do not think that CT scan would be indicated at this point. She does not describe any worsening of her symptoms with eating making me not very suspicious that she could have mesenteric ischemia. Perhaps repeat [employer] exam would be beneficial to evaluate for uterine or bladder prolapse; however, she was just seen by Dr. Terrell on 03/15/17. The vomiting that she is having currently, however, could be related to her known history of gastroparesis. I will start her on clear liquids at this point and if she is unable to keep those down, then perhaps promotility agent could be initiated. 2. Type 2 diabetes. The patient will be maintained on her usual long-acting insulin and lispro sliding scale. Her sugars have been poorly controlled recently per the patient, however, she states that when she has taken her insulin, her sugars have dropped. We will need to monitor this closely. 3. Vasculitis limited to skin. The patient will follow with Dr. Maradiaga for this. She will continue on her usual dose of CellCept and prednisone. 4. Hypertension. The patient will be continued on her usual dose of metoprolol tartrate. 5. Depression/posttraumatic stress disorder/borderline personality disorder. The patient will be continued on her Viibryd if we are able to provide this, Topamax, Remeron, and Haldol. 6. DVT prophylaxis. According to the Adult Thrombosis Prophylaxis Risk Factor Assessment Guide, the patient has a total risk factor score of 1 making her low risk. Ambulation will be utilized for DVT prophylaxis. 7. Code status is full and the patient indicates that her mother, Subha Leigh , is her healthcare proxy. TIME SPENT: 70 minutes were spent admitting this patient. [id number]/[facility] #: [id number] MTDD
[2017-04-01] MEDS: Dicyclomine CAP* 10 MG PO SCH ×3 (00:14→19:57)
[2017-04-01] MEDS: CMCS - Melatonin (NF) 3 MG TAB PO PRN ×2 (00:14→22:21)
[2017-04-01] MEDS: Topiramate TAB(*) 25 MG PO SCH ×4 (00:14→19:55)
[2017-04-01] MEDS: Metoprolol Tartrate TAB* 50 mg PO SCH ×3 (00:14→19:55)
[2017-04-01] MEDS: Morphine INJ* 2 MG/ML 1 ML SYRINGE IV PRN ×5 (03:06→20:05)
[2017-04-01] MEDS ORDERED: NS 0.9% 500 ML BAG* 500 ML IV ONE (08:23)
[2017-04-01] MEDS ORDERED: Pneumococcal Vac Polyvalent* 0.5 ML VIAL IM ONE (09:00)
[2017-04-01] MEDS: Ferrous Sulfate TAB* 325 MG PO SCH (09:02)
[2017-04-01] MEDS: Multivitamins/Minerals TAB PO SCH (09:02)
[2017-04-01] MEDS: Sucralfate TAB* 1 GM PO SCH ×4 (09:02→19:55)
[2017-04-01] MEDS: Cholecalciferol TAB* 1000 UNITS PO SCH (09:02)
[2017-04-01] MEDS: Omeprazole CAP* 20 MG PO SCH (09:02)
[2017-04-01] MEDS: Furosemide TAB* 40 MG PO SCH (09:02)
[2017-04-01] MEDS: predniSONE TAB* 10 MG PO SCH (09:05)
[2017-04-01] MEDS: Gabapentin CAP(*) 300 MG PO SCH ×3 (09:06→19:55)
[2017-04-01] MEDS: Mycophenolate Mofetil TAB(*) 500 MG PO SCH ×2 (09:07→19:56)
[2017-04-01] MEDS: Insulin LISPRO* 1 UNITS UNIT SUBCUT SCH ×4 (09:09→21:01)
[2017-04-01] MEDS: Nystatin SUSPENSION* 100000 UNITS/ML 5 ML UDC PO SCH ×5 (09:12→19:58)
[2017-04-01] MEDS: NS 0.9% 1000 ML* 1,000 ML IV SCH (11:06)
--- NOTE | 2017-04-01 11:16 | PN ---
Subjective Date of Service: 04/01/17 Interval History: Ms. Leigh is a 36 yo female from [place] who has been in and out of the ER over the past few weeks with concern for abd pain, n/v, inability to eat, and concern for sepsis. She has a complex medical history. The patient describes abdominal pain that has migrated to different parts of her abdomen but has now settled in her pelvic/vaginal region ("it feels like a lot of pressure down there, like I'm sitting on my insides"). She denies being sexually active, though states she does masturbate but denies any foreign object penetration. She reports subjective fever at home, such as sweats and chills, but never checked her temperature. She had a pelvic exam with biopsies with Dr. Terrell on 03/15/17. She denies any dysuria, vaginal discharge, or bleeding. She endorses a history of gastroparesis but feels this is different; she reports not taking medications for this, citing an allergy to metoclopramide. She is now vomiting with eating but previously had not been doing so. Her pain worsens when sitting up. It has improved with the pain medication here in the hospital; however, she has been laying down most of the time. She reports decreased urinary frequency and decreased bowel function, stating that she doesn't eat much anymore. She has been having diarrhea and states that her bowel function alternates between diarrhea and hard stools, secondary to IBS. She also has hemorrhoids. Currently, she is laying in bed. Denies fever/chills, CP, SOB. Denies abdominal pain but reports low vaginal/pelvic pain. Does not currently feel nauseous. Family History: Unchanged from Admission Social History: Unchanged from Admission Past Medical History: Unchanged from Admission Objective Active Medications: Acetaminophen (Tylenol Tab*) 650 mg PO Q4H PRN PRN Reason: PAIN Hydrocodone Bitart/Acetaminophen ([place] 5-325 Tab*) 1 tab PO Q4H PRN PRN Reason: PAIN Albuterol (Ventolin Hfa Inhaler*) 2 puff INH Q6H PRN PRN Reason: SOB/WHEEZING Atorvastatin Calcium (Lipitor*) 80 mg PO 2100 [facility] Calcium Carbonate (Tums*) 1,500 mg PO DAILY PRN PRN Reason: GERD Cholecalciferol (Vitamin D Tab*) 2,000 units PO DAILY [facility] Last Admin: 04/01/17 09:02 Dose: 2,000 units Dextrose (D50w Syringe 50 Ml*) 12.5 gm IV PUSH .FOR FS < 60 - SS PRN PRN Reason: FS < 60 Dicyclomine HCl (Bentyl Cap*) 10 mg PO BID [facility] Last Admin: 04/01/17 09:06 Dose: 10 mg Ferrous Sulfate (Ferrous Sulfate Tab*) 325 mg PO DAILY [facility] Last Admin: 04/01/17 09:02 Dose: 325 mg Furosemide (Lasix Tab*) 40 mg PO DAILY [facility] Last Admin: 04/01/17 09:02 Dose: 40 mg Gabapentin (Neurontin Cap(*)) 300 mg PO 0900,1400 [facility] Last Admin: 04/01/17 09:06 Dose: 300 mg Gabapentin (Neurontin Cap(*)) 600 mg PO BEDTIME [facility] Haloperidol (Haldol Tab*) 1 mg PO Q6H PRN PRN Reason: HALLUCINATIONS Sodium Chloride (Ns 0.9% 1000 Ml*) 1,000 mls @ 100 mls/hr IV PER RATE [facility] Last Admin: 04/01/17 11:06 Dose: 100 mls/hr Insulin Glargine (Lantus(*)) 120 units SUBCUT BEDTIME [facility] Last Admin: 03/31/17 23:04 Dose: 120 units Insulin Human Lispro (Humalog*) 0 units SUBCUT ACHS [facility] PRN Reason: Protocol Last Admin: 04/01/17 09:09 Dose: 3 units Loperamide HCl (Imodium Cap*) 2 mg PO BID PRN PRN Reason: DIARRHEA Lorazepam (Ativan Tab(*)) 1 mg PO BID PRN PRN Reason: ANXIETY Melatonin (Melatonin (Nf)) 3 mg PO BEDTIME PRN PRN Reason: SLEEP Last Admin: 04/01/17 00:14 Dose: 3 mg Metoprolol Tartrate (Lopressor Tab*) 50 mg PO BID [facility] Last Admin: 04/01/17 10:42 Dose: Not Given Mirtazapine (Remeron Tab*) 22.5 mg PO BEDTIME PRN PRN Reason: SLEEP Mometasone Furoate (Asmanex 220 Mcg Mdi *) 2 puff INH BEDTIME [facility] Last Admin: 03/31/17 22:49 Dose: Not Given Morphine Sulfate (Morphine Inj (Syringe)*) 2 mg IV Q4H PRN PRN Reason: PAIN - MILD Last Admin: 04/01/17 10:59 Dose: 2 mg Multivitamins/Minerals (Theragran/Minerals Tab*) 1 tab PO QAM [facility] Last Admin: 04/01/17 09:02 Dose: 1 tab Mycophenolate Mofetil (Cellcept Tab(*)) 1,500 mg PO BID [facility] Last Admin: 04/01/17 09:07 Dose: 1,500 mg Nystatin (Nystatin Suspension*) 500,000 units PO QID [facility] Stop: 04/08/17 04:15 Last Admin: 04/01/17 09:12 Dose: 500,000 units Omeprazole (Prilosec Cap*) 20 mg PO DAILY@0730 [facility] Last Admin: 04/01/17 09:02 Dose: 20 mg Ondansetron HCl (Zofran Inj*) 4 mg IV Q6H PRN PRN Reason: NAUSEA Prazosin HCl (Minipress Cap*) 5 mg PO BEDTIME [facility] Last Admin: 03/31/17 23:03 Dose: 5 mg Prazosin HCl (Minipress Cap*) 1 mg PO BEDTIME [facility] Last Admin: 03/31/17 23:02 Dose: 1 mg Prednisone (Deltasone Tab*) 10 mg PO DAILY [facility] Last Admin: 04/01/17 09:05 Dose: 10 mg Simethicone (Mylicon*) 80 mg PO DAILY PRN PRN Reason: gas Sucralfate (Carafate*) 1 gm PO QID [facility] Last Admin: 04/01/17 09:02 Dose: 1 gm Topiramate (Topamax(*)) 50 mg PO TID [facility] Last Admin: 04/01/17 09:05 Dose: 50 mg Vilazodone HCl (Viibryd (Nf)) 20 mg PO BID [facility] PRN Reason: Protocol Zolpidem Tartrate (Ambien Tab*) 10 mg PO BEDTIME [facility] Last Admin: 03/31/17 23:03 Dose: 10 mg Vital Signs 03/31/17 03/31/17 03/31/17 21:16 22:00 22:05 Temperature 98.2 F 98.2 F Pulse Rate 80 80 Respiratory 18 18 18 Rate Blood Pressure 134/87 134/87 (mmHg) O2 Sat by Pulse 100 100 Oximetry 03/31/17 03/31/17 03/31/17 22:08 22:51 23:51 Temperature Pulse Rate 85 Respiratory 16 20 18 Rate Blood Pressure 110/96 (mmHg) O2 Sat by Pulse Oximetry 04/01/17 04/01/17 04/01/17 00:14 02:14 03:06 Temperature Pulse Rate Respiratory 18 18 18 Rate Blood Pressure (mmHg) O2 Sat by Pulse Oximetry 04/01/17 04/01/17 04/01/17 03:29 04:06 07:23 Temperature 97.8 F Pulse Rate 78 Respiratory 16 18 18 Rate Blood Pressure 112/64 (mmHg) O2 Sat by Pulse 96 Oximetry 04/01/17 04/01/17 04/01/17 07:56 09:06 10:59 Temperature 97.9 F Pulse Rate 116 Respiratory 16 16 18 Rate Blood Pressure 89/54 (mmHg) O2 Sat by Pulse 98 Oximetry Oxygen Devices in Use Now: None Appearance: Well-developed, young female, lying in bed, in NAD Eyes: No Scleral Icterus Ears/Nose/Mouth/Throat: Clear Oropharnyx, Mucous Membranes Moist Neck: NL Appearance and Movements; NL JVP Respiratory: Symmetrical Chest Expansion and Respiratory Effort, Clear to Auscultation Cardiovascular: NL Sounds; No Murmurs; No JVD, RRR - distant heart sounds Abdominal: - - obese, BS present; tenderness with manipulation of pannus Skin: - - old scarring noted to upper and lower extremities, small area of ulceration to abdomen Neurological: Alert and Oriented x 3 Lines/Tubes/Other Access: Clean, Dry and Intact Peripheral IV Result Diagrams: 03/31/17 18:37 03/31/17 18:37 Additional Lab and Data: Lab Results 03/31/17 03/31/17 03/31/17 Range/Units 18:37 18:37 18:37 WBC 18.6 H (3.5-10.8) 10^3/ul RBC 4.54 (4.0-5.4) 10^6/ul Hgb 12.6 (12.0-16.0) g/dl Hct 39 (35-47) % MCV 85 (80-97) fL MCH 28 (27-31) pg MCHC 33 (31-36) g/dl RDW 14 (10.5-15) % Plt Count 396 (150-450) 10^3/ul MPV 7 L (7.4-10.4) um3 Neut % (Auto) 70.2 (38-83) % Lymph % (Auto) 22.8 L (25-47) % Nicholas % (Auto) 5.4 (1-9) % Eos % (Auto) 0.4 (0-6) % Baso % (Auto) 1.2 (0-2) % Absolute Neuts (auto) 13.1 H (1.5-7.7) 10^3/ul Absolute Lymphs (auto) 4.2 (1.0-4.8) 10^3/ul Absolute Monos (auto) 1.0 H (0-0.8) 10^3/ul Absolute Eos (auto) 0.1 (0-0.6) 10^3/ul Absolute Basos (auto) 0.2 (0-0.2) 10^3/ul Absolute Nucleated RBC 0.01 10^3/ul Nucleated RBC % 0 Sodium 133 (133-145) mmol/L Potassium 3.6 (3.5-5.0) mmol/L Chloride 100 L (101-111) mmol/L Carbon Dioxide 26 (22-32) mmol/L Anion Gap 7 (2-11) mmol/L BUN 5 L (6-24) mg/dL Creatinine 0.52 (0.51-0.95) mg/dL Est GFR ( Amer) 173.6 (>60) Est GFR (Non-Af Amer) 135.0 (>60) BUN/Creatinine Ratio 9.6 (8-20) Glucose 296 H (70-100) mg/dL Lactic Acid 2.6 H* (0.5-2.0) mmol/L Calcium 8.9 (8.6-10.3) mg/dL Magnesium 1.5 L (1.9-2.7) mg/dL Total Bilirubin 0.30 (0.2-1.0) mg/dL AST 11 L (13-39) U/L ALT 12 (7-52) U/L Alkaline Phosphatase 116 H (34-104) U/L C-Reactive Protein 38.42 H (< 5.00) mg/L Total Protein 7.4 (6.4-8.9) g/dL Albumin 3.3 (3.2-5.2) g/dL Globulin 4.1 H (2-4) g/dL Albumin/Globulin Ratio 0.8 L (1-3) Lipase 10 L (11.0-82.0) U/L Assess/Plan/Problems-Billing Assessment: Ms. Leigh is a 36 yo female with a PMH that includes super morbid obesity, DM2 , gastroparesis, vasculitis limited to skin, HLD, HTN, depression, PTSD, borderline personality disorder, and PCOS who presented to the ED on 03/31/17 with c/o migrating abd pain x 2-3 weeks and low pelvic pain, as well as lack of appetite and vomiting. - Patient Problems (1) Abdominal pain Code(s): R10.9 - UNSPECIFIED ABDOMINAL PAIN Comment: Pt has known IBS Attempt to get records from 2016 evaluation at [facility] GI consult requested, appreciate GI input for abd pain and vomiting Check pelvic US, given patient's complaints of vaginal pressure Check gastric emptying study, due to hx of gastroparesis Urine porphobilinogen study pending to eval for porphyria Continue clear liquids Continue to monitor for worsening abd pain or sepsis; CT abd does not seem indicated at this time. (2) Diabetes Code(s): E11.9 - TYPE 2 DIABETES MELLITUS WITHOUT COMPLICATIONS Comment: Poorly controlled Continue home Lispro SSI and Lantus dosing Check HgbA1c (3) Gastroparesis due to DM Code(s): E11.43 - TYPE 2 DIABETES W DIABETIC AUTONOMIC (POLY)NEUROPATHY; K31.84 - GASTROPARESIS Comment: Per pt, she has an allergy to metoclopramide. With recent c/o frequent vomiting, plan for gastric emptying study/ (4) History of vasculitis Code(s): Z86.79 - PERSONAL HISTORY OF OTHER DISEASES OF THE CIRCULATORY SYSTEM Comment: With skin involvement Follows with Dr. Maradiaga Chronically treated with prednisone/Cellcept Continue current treatment (5) Leukocytosis Code(s): D72.829 - ELEVATED WHITE BLOOD CELL COUNT, UNSPECIFIED Comment: Chronic leukocytosis Likely due to prednisone Currently afebrile and no clear source of infection Continue to monitor (6) HTN (hypertension) Code(s): I10 - ESSENTIAL (PRIMARY) HYPERTENSION Comment: Normotensive Continue metoprolol with hold parameters (7) Anxiety and depression Code(s): F41.9 - ANXIETY DISORDER, UNSPECIFIED; F32.9 - MAJOR DEPRESSIVE DISORDER, SINGLE EPISODE, UNSPECIFIED Comment: With PTSD and borderline personality disorder Continue home psychiatric medications (8) Morbid obesity Code(s): E66.01 - MORBID (SEVERE) OBESITY DUE TO EXCESS CALORIES Comment: BMI 60.9 (9) DVT prophylaxis Comment: SCDS Encourage ambulation Status and Disposition: OBV admit. D/c to home when medically stable.
[2017-04-01] MEDS: VILAZODONE 20 MG PO SCH ×2 (12:44→19:57)
[2017-04-01] MEDS: HYDROcodone/ACETAMIN 5-325 MG* 1 TAB PO PRN ×2 (12:59→18:12)
--- NOTE | 2017-04-01 15:37 | RAD ---
INDICATION: Irregular menstruation "lasting weeks" COMPARISON: None. TECHNIQUE: Real-time transabdominal only ultrasound examination of the female pelvis including grayscale and Doppler color flow imaging. FINDINGS: Uterus: The uterus is normal in size and echogenicity measuring 13.7 x 3.2 x 5.0 cm. The endometrial stripe is smooth and uniform measuring 3 mm in thickness. Ovaries: The right and left ovary measure 3.3 x 1.4 x 2.0 cm and 2.6 x 1.1 x 2.4 cm, respectively. Normal arterial and venous waveforms are identified. Appearance is within normal limits for the patient's age. There is no free fluid in the cul-de-sac. IMPRESSION: Normal pelvic ultrasound for the patient's age.
[2017-04-01] MEDS: Ondansetron INJ* 2 MG/ML VIAL IV PRN (18:15)
[2017-04-01] MEDS: Atorvastatin* 80 MG TAB PO SCH (19:54)
[2017-04-01] MEDS: Prazosin CAP* 5 MG PO SCH (19:56)
[2017-04-01] MEDS: Prazosin CAP* 1 MG PO SCH (19:56)
[2017-04-01] MEDS: Mometasone 220 MCG MDI INH SCH (20:47)
[2017-04-01] MEDS: Insulin GLARGINE(*) 1 UNITS UNIT SUBCUT SCH (21:01)
[2017-04-01] MEDS: Zolpidem TAB* 10 MG PO SCH (22:19)
[2017-04-02] MEDS ORDERED: NS 0.9% 500 ML BAG* 500 ML IV ONE (00:15)
[2017-04-02] MEDS: NS 0.9% 1000 ML* 1,000 ML IV SCH ×3 (01:08→21:51)
[2017-04-02] MEDS: Morphine INJ* 2 MG/ML 1 ML SYRINGE IV PRN ×5 (01:59→22:49)
[2017-04-02 06:53] LABS: Hematocrit 38 % (35-47); Mean Corpuscular HGB Conc 32 g/dl (31-36); Mean Corpuscular Hemoglobin 27 pg (27-31); Mean Corpuscular Volume 85 fL (80-97); Mean Platelet Volume 7 um3 (7.4-10.4); Red Cell Distribution Width 13 % (10.5-15); White Blood Count 17.3 10^3/ul (3.5-10.8)
[2017-04-02] MEDS ORDERED: Ondansetron INJ* 2 MG/ML VIAL ONE (07:37)
[2017-04-02] MEDS ORDERED: Meperidine SYRINGE* 50 MG/ML ONE (07:37)
[2017-04-02] MEDS ORDERED: Midazolam* 1 MG/ML 10 ML VIAL (10 MG) ONE (07:37)
[2017-04-02] MEDS ORDERED: Pneumococcal Vac Polyvalent* 0.5 ML VIAL IM ONE (09:00)
[2017-04-02] MEDS: Ondansetron INJ* 2 MG/ML VIAL IV PRN (10:13)
[2017-04-02] MEDS: Insulin LISPRO* 1 UNITS UNIT SUBCUT SCH ×4 (10:14→21:56)
[2017-04-02] MEDS: Nystatin SUSPENSION* 100000 UNITS/ML 5 ML UDC PO SCH ×5 (11:51→21:57)
[2017-04-02] MEDS: Furosemide TAB* 40 MG PO SCH (11:52)
[2017-04-02] MEDS: VILAZODONE 20 MG PO SCH ×2 (11:52→21:55)
[2017-04-02] MEDS: Mycophenolate Mofetil TAB(*) 500 MG PO SCH ×2 (11:52→21:55)
[2017-04-02] MEDS: Sucralfate TAB* 1 GM PO SCH ×4 (11:52→21:53)
[2017-04-02] MEDS: Metoprolol Tartrate TAB* 50 mg PO SCH ×2 (11:53→21:54)
[2017-04-02] MEDS: predniSONE TAB* 10 MG PO SCH (11:54)
[2017-04-02] MEDS: Omeprazole CAP* 20 MG PO SCH (11:54)
[2017-04-02] MEDS: Dicyclomine CAP* 10 MG PO SCH ×2 (11:54→21:53)
[2017-04-02] MEDS: Gabapentin CAP(*) 300 MG PO SCH ×3 (11:55→21:54)
[2017-04-02] MEDS: Ferrous Sulfate TAB* 325 MG PO SCH (11:55)
[2017-04-02] MEDS: Multivitamins/Minerals TAB PO SCH (11:55)
[2017-04-02] MEDS: Topiramate TAB(*) 25 MG PO SCH ×3 (11:55→21:52)
[2017-04-02] MEDS: Cholecalciferol TAB* 1000 UNITS PO SCH (11:55)
[2017-04-02] MEDS: HYDROcodone/ACETAMIN 5-325 MG* 1 TAB PO PRN ×2 (13:32→17:44)
[2017-04-02] MEDS: Metoclopramide TAB* 10 MG PO SCH ×2 (13:46→17:11)
[2017-04-02] MEDS ORDERED: Fluconazole 100 MG TAB* TAB PO ONE (15:42)
[2017-04-02] MEDS ORDERED: diPHENhydraMINE IV* 50 MG/ML 1 ml VIAL (BENADRYL) IV PRN (15:55)
[2017-04-02] MEDS ORDERED: Ondansetron INJ* 2 MG/ML VIAL IV SCH (16:00)
[2017-04-02] MEDS: Ondansetron INJ* 2 MG/ML VIAL IV SCH ×2 (17:18→22:49)
--- NOTE | 2017-04-02 18:36 | PN ---
Subjective Date of Service: 04/02/17 Interval History: This is a 36 yo female with super morbid obesity, IDDM, gastroparesis, PCOS, IBS , vasculitis, sicca syndrome and PTSD who presented with complaints of abd/ pelvic pain with intractable n/v. She had been to the ER 4 times in the last 2 weeks with the same complaints. Initial labs are unremarkable, pelvic US neg. She was unable to tolerate gastric emptying study this am. She did undergo EGD this am which was reportedly normal. Patient reports that she is able to tolerate liquids, but no solids as she promptly vomits. She has known gastroparesis and states that she has been trialed on Reglan 2 prior times with increased pain and nausea, she is unwilling to try again. Most of her abd pain is in the lower abd and vaginal region which is worse with sitting up. Objective Active Medications: Acetaminophen (Tylenol Tab*) 650 mg PO Q4H PRN PRN Reason: PAIN Hydrocodone Bitart/Acetaminophen ([place] 5-325 Tab*) 1 tab PO Q4H PRN PRN Reason: PAIN Last Admin: 04/02/17 17:44 Dose: 1 tab Albuterol (Ventolin Hfa Inhaler*) 2 puff INH Q6H PRN PRN Reason: SOB/WHEEZING Atorvastatin Calcium (Lipitor*) 80 mg PO 2100 [facility] Last Admin: 04/01/17 19:54 Dose: 80 mg Calcium Carbonate (Tums*) 1,500 mg PO DAILY PRN PRN Reason: GERD Cholecalciferol (Vitamin D Tab*) 2,000 units PO DAILY [facility] Last Admin: 04/02/17 11:55 Dose: 2,000 units Dextrose (D50w Syringe 50 Ml*) 12.5 gm IV PUSH .FOR FS < 60 - SS PRN PRN Reason: FS < 60 Dicyclomine HCl (Bentyl Cap*) 10 mg PO BID [facility] Last Admin: 04/02/17 11:54 Dose: 10 mg Diphenhydramine HCl (Benadryl Iv*) 25 mg IV Q6H PRN PRN Reason: NAUSEA Ferrous Sulfate (Ferrous Sulfate Tab*) 325 mg PO DAILY [facility] Last Admin: 04/02/17 11:55 Dose: 325 mg Furosemide (Lasix Tab*) 40 mg PO DAILY [facility] Last Admin: 04/02/17 11:52 Dose: 40 mg Gabapentin (Neurontin Cap(*)) 300 mg PO 0900,1400 [facility] Last Admin: 04/02/17 13:30 Dose: 300 mg Gabapentin (Neurontin Cap(*)) 600 mg PO BEDTIME [facility] Last Admin: 04/01/17 19:55 Dose: 600 mg Haloperidol (Haldol Tab*) 1 mg PO Q6H PRN PRN Reason: HALLUCINATIONS Sodium Chloride (Ns 0.9% 1000 Ml*) 1,000 mls @ 150 mls/hr IV .PER RATE [facility] Last Admin: 04/02/17 15:08 Dose: 150 mls/hr Insulin Glargine (Lantus(*)) 120 units SUBCUT BEDTIME [facility] Last Admin: 04/01/17 21:01 Dose: 120 units Insulin Human Lispro (Humalog*) 0 units SUBCUT ACHS [facility] PRN Reason: Protocol Last Admin: 04/02/17 17:18 Dose: 6 units Loperamide HCl (Imodium Cap*) 2 mg PO BID PRN PRN Reason: DIARRHEA Lorazepam (Ativan Tab(*)) 1 mg PO BID PRN PRN Reason: ANXIETY Melatonin (Melatonin (Nf)) 3 mg PO BEDTIME PRN PRN Reason: SLEEP Last Admin: 04/01/17 22:21 Dose: 3 mg Metoprolol Tartrate (Lopressor Tab*) 50 mg PO BID [facility] Last Admin: 04/02/17 11:53 Dose: 50 mg Mirtazapine (Remeron Tab*) 22.5 mg PO BEDTIME PRN PRN Reason: SLEEP Mometasone Furoate (Asmanex 220 Mcg Mdi *) 2 puff INH BEDTIME [facility] Last Admin: 04/01/17 20:47 Dose: Not Given Morphine Sulfate (Morphine Inj (Syringe)*) 2 mg IV Q4H PRN PRN Reason: PAIN - MILD Last Admin: 04/02/17 14:31 Dose: 2 mg Multivitamins/Minerals (Theragran/Minerals Tab*) 1 tab PO QAM [facility] Last Admin: 04/02/17 11:55 Dose: 1 tab Mycophenolate Mofetil (Cellcept Tab(*)) 1,500 mg PO BID [facility] Last Admin: 04/02/17 11:52 Dose: 1,500 mg Nystatin (Nystatin Suspension*) 500,000 units PO QID [facility] Stop: 04/08/17 04:15 Last Admin: 04/02/17 17:08 Dose: Not Given Omeprazole (Prilosec Cap*) 20 mg PO DAILY@0730 [facility] Last Admin: 04/02/17 11:54 Dose: 20 mg Ondansetron HCl (Zofran Inj*) 4 mg IV ACHS [facility] Last Admin: 04/02/17 17:18 Dose: 4 mg Prazosin HCl (Minipress Cap*) 5 mg PO BEDTIME [facility] Last Admin: 04/01/17 19:56 Dose: 5 mg Prazosin HCl (Minipress Cap*) 1 mg PO BEDTIME [facility] Last Admin: 04/01/17 19:56 Dose: 1 mg Prednisone (Deltasone Tab*) 10 mg PO DAILY [facility] Last Admin: 04/02/17 11:54 Dose: 10 mg Simethicone (Mylicon*) 80 mg PO DAILY PRN PRN Reason: gas Sucralfate (Carafate*) 1 gm PO QID [facility] Last Admin: 04/02/17 17:18 Dose: 1 gm Topiramate (Topamax(*)) 50 mg PO TID [facility] Last Admin: 04/02/17 13:31 Dose: 50 mg Vilazodone HCl (Viibryd (Nf)) 20 mg PO BID [facility] PRN Reason: Protocol Last Admin: 04/02/17 11:52 Dose: 20 mg Zolpidem Tartrate (Ambien Tab*) 10 mg PO BEDTIME [facility] Last Admin: 04/01/17 22:19 Dose: 10 mg Vital Signs: Temp Pulse Resp BP Pulse Ox 98.4 F 69 16 110/64 98 04/02/17 09:44 04/02/17 15:32 04/02/17 17:44 04/02/17 15:32 04/02/17 15:32 Oxygen Devices in Use Now: None Appearance: Morbidly obese young female in NAD Respiratory: Symmetrical Chest Expansion and Respiratory Effort, Clear to Auscultation Cardiovascular: NL Sounds; No Murmurs; No JVD, RRR Abdominal: - - mild TTP in the RLQ, exam: examined external genitalia which shows no obvious lesions but is TTP, thick white dc noted at vaginal vault, no large external hemorrhoids noted Extremities: No Edema Neurological: Alert and Oriented x 3 Result Diagrams: 04/02/17 06:46 03/31/17 18:37 Additional Lab and Data: . Diagnostic Imaging: Pelvic US - WNL EGD - unremarkable Gastric emptying study - unable to tolerate Assess/Plan/Problems-Billing Assessment: Ms. Leigh is a 36 yo female with a PMH that includes super morbid obesity, DM2 , gastroparesis, vasculitis limited to skin, HLD, HTN, depression, PTSD, borderline personality disorder, and PCOS who presented to the ED on 03/31/17 with c/o migrating abd pain x 2-3 weeks and low pelvic pain, as well as lack of appetite and vomiting. - Patient Problems (1) Abdominal pain Comment: With intractable n/v, only able to tolerate clear liquids Exact etiology is not clear Pt has known IBS Urine porphobilinogen study pending to eval for porphyria Pelvic US is unremarkable Considered pelvic congestion syndrome and contacted radiologist, Dr Guevara for review of recent CT who did not see an large veins that would support that diagnosis She does have a thick white discharge, will treat for vaginal candidiasis Will augment treatment for gastroparesis Attempt to advance to full liquids (2) Gastroparesis due to DM Comment: Assume this is contributing to some of her pain and vomiting, but clearly doesn' t explain her pelvic pain Patient reports intolerance/failure of Reglan Start scheduled antiemetics and erythromycin as a prokinetic (3) Leukocytosis Comment: Chronic leukocytosis Likely due to prednisone Currently afebrile and no clear source of infection Continue to monitor (4) Diabetes Comment: Poorly controlled Continue home Lispro SSI and Lantus dosing HgbA1c 11.3 (5) HTN (hypertension) Comment: Normotensive Continue metoprolol (6) History of vasculitis Comment: With skin involvement Follows with Dr. Maradiaga Chronically treated with prednisone/Cellcept Continue current treatment (7) Morbid obesity Comment: BMI 60.9 (8) DVT prophylaxis Comment: SCDS Encourage ambulation (9) Anxiety and depression Comment: With PTSD and borderline personality disorder Continue home psychiatric medications Status and Disposition: Inpatient. Unsure of discharge at this time
[2017-04-02] MEDS: Mometasone 220 MCG MDI INH SCH (21:02)
[2017-04-02] MEDS: Atorvastatin* 80 MG TAB PO SCH (21:52)
[2017-04-02] MEDS: Prazosin CAP* 1 MG PO SCH (21:54)
[2017-04-02] MEDS: CMCS - Melatonin (NF) 3 MG TAB PO PRN (21:54)
[2017-04-02] MEDS: Prazosin CAP* 5 MG PO SCH (21:54)
[2017-04-02] MEDS: Zolpidem TAB* 10 MG PO SCH (21:55)
[2017-04-02] MEDS: Insulin GLARGINE(*) 1 UNITS UNIT SUBCUT SCH (21:55)
[2017-04-03] MEDS: Morphine INJ* 2 MG/ML 1 ML SYRINGE IV PRN ×5 (03:04→21:10)
[2017-04-03] MEDS: NS 0.9% 1000 ML* 1,000 ML IV SCH (05:05)
[2017-04-03] MEDS: HYDROcodone/ACETAMIN 5-325 MG* 1 TAB PO PRN ×2 (05:40→14:42)
[2017-04-03] MEDS: Ondansetron INJ* 2 MG/ML VIAL IV SCH ×4 (07:23→21:09)
[2017-04-03] MEDS: Metoprolol Tartrate TAB* 50 mg PO SCH ×2 (07:25→21:06)
[2017-04-03] MEDS: Cholecalciferol TAB* 1000 UNITS PO SCH (07:26)
[2017-04-03] MEDS: Furosemide TAB* 40 MG PO SCH (07:26)
[2017-04-03] MEDS: Ferrous Sulfate TAB* 325 MG PO SCH (07:26)
[2017-04-03] MEDS: predniSONE TAB* 10 MG PO SCH (07:26)
[2017-04-03] MEDS: Gabapentin CAP(*) 300 MG PO SCH ×3 (07:26→21:06)
[2017-04-03] MEDS: Multivitamins/Minerals TAB PO SCH (07:26)
[2017-04-03] MEDS: Nystatin SUSPENSION* 100000 UNITS/ML 5 ML UDC PO SCH ×4 (07:27→21:09)
[2017-04-03] MEDS: Omeprazole CAP* 20 MG PO SCH (07:27)
[2017-04-03] MEDS: Topiramate TAB(*) 25 MG PO SCH ×3 (07:27→21:07)
[2017-04-03] MEDS: Sucralfate TAB* 1 GM PO SCH ×4 (07:27→21:07)
[2017-04-03] MEDS: Insulin LISPRO* 1 UNITS UNIT SUBCUT SCH ×4 (08:47→21:09)
[2017-04-03] MEDS: Dicyclomine CAP* 10 MG PO SCH ×2 (09:04→21:05)
[2017-04-03] MEDS: Mycophenolate Mofetil TAB(*) 500 MG PO SCH ×2 (09:06→21:07)
[2017-04-03] MEDS: VILAZODONE 20 MG PO SCH ×2 (09:06→21:08)
--- NOTE | 2017-04-03 13:44 | CONS ---
GASTROENTEROLOGY CONSULT: DATE: 04/02 CONSULTING PHYSICIANS: Dina Espino, GEM; Kimberlyn Dhillon REASON FOR CONSULTATION: Reports of nausea and vomiting and also abdominal pain with at times a global distribution and at times suprapubic. 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 She was able to give a preliminary history that seems clear with facts that were promptly voiced, though the complexity of her past history with over 15 diagnoses and over 30 medications prompted review of [facility] records and also from [facility] (by AM 04/03/17 over 200 pages were sent reflecting 2015 and then there are multiple admissions to [facility] since fall 2015). There are lengthy lists of diagnoses, some of which have the primary data supporting them and many of which do not - including gastroparesis and C Diff. Most recently she says she has been living in a assisted in [place] with 14 residents. She states that there has been nausea and vomiting for the last month and she "can't keep anything down." She gives a history of a cholecystectomy in [place] at age 28, following which her bowels have been irregular and she carries a diagnosis of irritable bowel syndrome. Gastroparesis is on her list, though from a workup well before 2015. Specific Gastroenterology records are on a second request. In the last 2 months, she has had 4 CTs of the abdomen and pelvis through the emergency room since January 2017 showing no inflammatory process. Also in the last 10 months, attending to [facility], there have been additional chest CTs chest and thorax and a pelvic ultrasound, the latter of which was normal for age. Multiple laboratory abnormalities have been commented on. Her white count has been between 15 and 22 uniformly and there are [facility] records that say that this goes back at least to 2012. The sed rate is approximately 100 on 2 determinations in the last month. The CRP elevated between 30 and 40, 5 determinations over that timeframe. Magnesium is 1.3 to 1.5, alkaline phosphatase approximately 120 consistently with other LFTs absolutely normal. The alkaline phosphatase has 10 determinations from May 2016 to now all about the same. [facility] records did not comment on that. Her albumin has been consistently 3.4. Her IgE level is 1794 (normal less than 214) and IgA 720 ( normal 60 to 356), with ROXANNA and rheumatoid factor negative. Hepatitis C antibody is negative. PAST MEDICAL HISTORY: 1. Super-morbid obesity. 2. Fatty liver - radiologically - ALT levels have been uniformly normal. 3. Status post cholecystectomy age 28 4. History of C. diff - mentioned in spring 2015 in the [facility] records, though no primary data was available in the over 200 pages sent. It is remarkable that she had 2 admissions since summer 2015 to [facility] where no bowel movements occurred over several days. Over the last 10 months, she has had no stool studies for that here. 5. Irritable bowel syndrome - presumably frequently explanation for bowel irregularities (she links it to her GB surgery) 6. Borderline personality disorder. 7. PTSD. 8. Depression - she said she has had over 100 electroconvulsive therapy sessions. MEDICATIONS: Reviewed in Dr. Penaloza's history and physical up to #39. SOCIAL HISTORY: She was born and raised in [place]. Her father living in [place] is the reason she moved to the [place]. Mother of heart disease 3 years ago. Her mother was a SECURITY CONTROL ROOM OFFICER. REVIEW OF SYSTEMS: No history of SC. She has had a negative cardiac catheterization in [place]. There is no history of seizures, TB, renal stones or hepatitis. Records refer to skin infections. She did have an insulin pump at one point and there were reportedly abscesses around it and the endocrinology service at [facility] recommended it be removed and this was done. Her A1c over the last year has been consistently 11. Over the last 2 months, she has not been anemic with hemoglobin of 12, platelets normal in the 300s, and again her white count elevated as before. EXAM: She is a super-morbidly obese woman in no overt distress. She does complain of lower abdominal pain. When examined in detail yesterday at the time of the endoscopy, there was no icterus. Mucous membranes appeared normal. She had no adenopathy and skin of neck, chest and abdomen was normal apart from pannicular changes. Lungs were clear. Heart sounds were regular. Abdomen difficult to evaluate, but symmetric with normal bowel sounds and was soft without clear-cut guarding. Rectal not done. Extremities: Super- morbidly obese with some 1+ pitting edema. Neurologic was nonfocal. IMPRESSION: This 36-year-old woman with obesity and diabetes and reportedly on autoimmune disorder has multiple symptoms. At this time during this admission, there is very little to suggest an acute or chronic gastroenterologic condition related to the luminal GI tract is the cause of her symptoms. There was no gastric retention at her EGD. Her prior [facility] records have been requested. She has had C. diff in the past, but there is no evidence for that now. She has H. pylori on her gastric biopsies, though no inflammatory signs and it seems unlikely that has been a contributor to any of her symptoms. With a history of C. diff, would not treat this now. She could probably have her PPI therapy reduced, possibly made every other day. That what reduce the burden of her medications. It might help her hypomagnesemia. Her alkaline phosphatase elevation is mild, stable, and likely in some way related to medications. Hopefully, that list can be trimmed. As regards to nausea and vomiting, would try to reduce her medications and would try to reduce pain meds. There is no sign of malabsorption or a small bowel disorder. Regarding her abdominal pain, there is no corroboration right now that there is an infectious, inflammatory, or potentially surgical cause. It is probably in her best interest to limit radiation exposure and in the future, might try to evaluate her with ultrasound and plain abdominal films as opposed to CT scans. The chronic white count elevation does make following her clinically a little more difficult, but limiting diagnostic studies would still appear to be a goal and priority. [id number]/[facility] #: [id number] MTDD
[2017-04-03] MEDS ORDERED: Fluconazole 100 MG TAB* TAB PO ONE (14:05)
--- NOTE | 2017-04-03 14:14 | PN ---
Subjective Date of Service: 04/03/17 Interval History: Patient reports some improvement in nausea. She has not vomited in the last 24 hours. She is still having migratory abd pain and had some loose stools overnight. No CP or SOB Objective Active Medications: Acetaminophen (Tylenol Tab*) 650 mg PO Q4H PRN PRN Reason: PAIN Hydrocodone Bitart/Acetaminophen ([place] 5-325 Tab*) 1 tab PO Q4H PRN PRN Reason: PAIN Last Admin: 04/03/17 05:40 Dose: 1 tab Albuterol (Ventolin Hfa Inhaler*) 2 puff INH Q6H PRN PRN Reason: SOB/WHEEZING Atorvastatin Calcium (Lipitor*) 80 mg PO 2100 [facility] Last Admin: 04/02/17 21:52 Dose: 80 mg Calcium Carbonate (Tums*) 1,500 mg PO DAILY PRN PRN Reason: GERD Cholecalciferol (Vitamin D Tab*) 2,000 units PO DAILY [facility] Last Admin: 04/03/17 07:26 Dose: 2,000 units Dextrose (D50w Syringe 50 Ml*) 12.5 gm IV PUSH .FOR FS < 60 - SS PRN PRN Reason: FS < 60 Dicyclomine HCl (Bentyl Cap*) 10 mg PO BID [facility] Last Admin: 04/03/17 09:04 Dose: 10 mg Diphenhydramine HCl (Benadryl Iv*) 25 mg IV Q6H PRN PRN Reason: NAUSEA Ferrous Sulfate (Ferrous Sulfate Tab*) 325 mg PO DAILY [facility] Last Admin: 04/03/17 07:26 Dose: 325 mg Furosemide (Lasix Tab*) 40 mg PO DAILY [facility] Last Admin: 04/03/17 07:26 Dose: 40 mg Gabapentin (Neurontin Cap(*)) 300 mg PO 0900,1400 [facility] Last Admin: 04/03/17 07:26 Dose: 300 mg Gabapentin (Neurontin Cap(*)) 600 mg PO BEDTIME [facility] Last Admin: 04/02/17 21:54 Dose: 600 mg Haloperidol (Haldol Tab*) 1 mg PO Q6H PRN PRN Reason: HALLUCINATIONS Insulin Glargine (Lantus(*)) 120 units SUBCUT BEDTIME [facility] Last Admin: 04/02/17 21:55 Dose: 120 units Insulin Human Lispro (Humalog*) 0 units SUBCUT ACHS KRISTEN PRN Reason: Protocol Last Admin: 04/03/17 08:47 Dose: Not Given Loperamide HCl (Imodium Cap*) 2 mg PO BID PRN PRN Reason: DIARRHEA Last Admin: 04/03/17 05:37 Dose: 2 mg Lorazepam (Ativan Tab(*)) 1 mg PO BID PRN PRN Reason: ANXIETY Melatonin (Melatonin (Nf)) 3 mg PO BEDTIME PRN PRN Reason: SLEEP Last Admin: 04/02/17 21:54 Dose: 3 mg Metoprolol Tartrate (Lopressor Tab*) 50 mg PO BID [facility] Last Admin: 04/03/17 07:25 Dose: 50 mg Mirtazapine (Remeron Tab*) 22.5 mg PO BEDTIME PRN PRN Reason: SLEEP Mometasone Furoate (Asmanex 220 Mcg Mdi *) 2 puff INH BEDTIME [facility] Last Admin: 04/02/17 21:02 Dose: Not Given Morphine Sulfate (Morphine Inj (Syringe)*) 2 mg IV Q4H PRN PRN Reason: PAIN - MILD Last Admin: 04/03/17 11:17 Dose: 2 mg Multivitamins/Minerals (Theragran/Minerals Tab*) 1 tab PO QAM [facility] Last Admin: 04/03/17 07:26 Dose: 1 tab Mycophenolate Mofetil (Cellcept Tab(*)) 1,500 mg PO BID [facility] Last Admin: 04/03/17 09:06 Dose: 1,500 mg Nystatin (Nystatin Suspension*) 500,000 units PO QID [facility] Stop: 04/08/17 04:15 Last Admin: 04/03/17 11:25 Dose: Not Given Omeprazole (Prilosec Cap*) 20 mg PO DAILY@0730 [facility] Last Admin: 04/03/17 07:27 Dose: 20 mg Ondansetron HCl (Zofran Inj*) 4 mg IV ACHS [facility] Last Admin: 04/03/17 11:17 Dose: 4 mg Prazosin HCl (Minipress Cap*) 5 mg PO BEDTIME [facility] Last Admin: 04/02/17 21:54 Dose: 5 mg Prazosin HCl (Minipress Cap*) 1 mg PO BEDTIME [facility] Last Admin: 04/02/17 21:54 Dose: 1 mg Prednisone (Deltasone Tab*) 10 mg PO DAILY [facility] Last Admin: 04/03/17 07:26 Dose: 10 mg Simethicone (Mylicon*) 80 mg PO DAILY PRN PRN Reason: gas Sucralfate (Carafate*) 1 gm PO QID [facility] Last Admin: 04/03/17 11:17 Dose: 1 gm Topiramate (Topamax(*)) 50 mg PO TID [facility] Last Admin: 04/03/17 07:27 Dose: 50 mg Vilazodone HCl (Viibryd (Nf)) 20 mg PO BID [facility] PRN Reason: Protocol Last Admin: 04/03/17 09:06 Dose: 20 mg Zolpidem Tartrate (Ambien Tab*) 10 mg PO BEDTIME [facility] Last Admin: 04/02/17 21:55 Dose: 10 mg Vital Signs: Temp Pulse Resp BP Pulse Ox 98.0 F 72 18 103/62 100 04/03/17 11:03 04/03/17 11:03 04/03/17 11:17 04/03/17 11:03 04/03/17 11:03 Oxygen Devices in Use Now: None Appearance: Well appearing young female in NAD Respiratory: Symmetrical Chest Expansion and Respiratory Effort, Clear to Auscultation Cardiovascular: NL Sounds; No Murmurs; No JVD, RRR Abdominal: - - soft, bowel sounds present, somewhat diffuse abd pain but worse in RLQ Extremities: No Edema Skin: No Rash or Ulcers Neurological: Alert and Oriented x 3 Result Diagrams: 04/02/17 06:46 03/31/17 18:37 Additional Lab and Data: . Diagnostic Imaging: Pelvic US - WNL EGD - unremarkable Gastric emptying study - unable to tolerate Assess/Plan/Problems-Billing Assessment: Ms. Leigh is a 36 yo female with a PMH that includes super morbid obesity, DM2 , gastroparesis, vasculitis limited to skin, HLD, HTN, depression, PTSD, borderline personality disorder, and PCOS who presented to the ED on 03/31/17 with c/o migrating abd pain x 2-3 weeks and low pelvic pain, as well as lack of appetite and vomiting. - Patient Problems (1) Abdominal pain Comment: With intractable n/v, now able to tolerate full liquids but she has no interest in advancing to solid foods Exact etiology is not clear Pt has known IBS Urine porphobilinogen study pending to eval for porphyria Pelvic US is unremarkable EGD is unremarkable She has been evaluated by GI who does not believe her symptoms are primarily GI related Considered pelvic congestion syndrome and contacted radiologist, Dr Guevara for review of recent CT who did not see an large veins that would support that diagnosis She does have a thick white discharge, she received one dose of Diflucan, will try to repeat Treatment for gastroparesis has been initiated with some improvement in her nausea but no change in pain Next steps would include STRADDLE TRUCK OPERATOR eval, this can likely be accomplished as an outpatient (2) Gastroparesis due to DM Comment: Some improvement in nausea since starting erythromycin and scheduled Zofran Assume this is contributing to some of her pain and vomiting, but clearly doesn' t explain her pelvic pain Patient reports intolerance/failure of Reglan (3) Leukocytosis Comment: Chronic leukocytosis Likely due to prednisone Currently afebrile and no clear source of infection Continue to monitor (4) Diabetes Comment: Poorly controlled Continue home Lispro SSI and Lantus dosing HgbA1c 11.3 (5) HTN (hypertension) Comment: Normotensive Continue metoprolol (6) History of vasculitis Comment: With skin involvement Follows with Dr. Maradiaga Chronically treated with prednisone/Cellcept Continue current treatment (7) Morbid obesity Comment: BMI 60.9 (8) DVT prophylaxis Comment: SCDS Encourage ambulation (9) Anxiety and depression Comment: With PTSD and borderline personality disorder Continue home psychiatric medications Status and Disposition: Inpatient. Anticipate possible dc home tomorrow with plan for further outpt STRADDLE TRUCK OPERATOR eval
[2017-04-03] MEDS: Mometasone 220 MCG MDI INH SCH (19:32)
[2017-04-03] MEDS: Atorvastatin* 80 MG TAB PO SCH (21:05)
[2017-04-03] MEDS: Prazosin CAP* 1 MG PO SCH (21:06)
[2017-04-03] MEDS: Prazosin CAP* 5 MG PO SCH (21:06)
[2017-04-03] MEDS: Insulin GLARGINE(*) 1 UNITS UNIT SUBCUT SCH (21:10)
[2017-04-03] MEDS: CMCS - Melatonin (NF) 3 MG TAB PO PRN (22:14)
[2017-04-03] MEDS: Zolpidem TAB* 10 MG PO SCH (22:15)
--- NOTE | 2017-04-04 02:55 | PRO ---
DATE: 04/02/17 REFERRING PHYSICIANS: Tiffanie Roy. INDICATION: This 36-year-old woman with super morbid obesity, insulin- dependent diabetes, and autoimmune disorder, on CellCept, reporting a past diagnosis of gastroparesis and also irritable bowel syndrome (post cholecystectomy), says that she "can't keep anything down for 4 weeks." She thus undergoes gastroscopy. She says she has had this test once before at [facility] several years ago. Review of [facility] and [facility]' records from 2015 does not show any Gastroenterology consults or procedures in that timeframe, though the records faxed were over 200 pages. The patient was brought down to the endoscopy suite. Her oxygenation was in the 90s. She appeared actually calm and requested not to have a very heavy level of sedation. ENDOSCOPIST: Addison MEDICATION: Midazolam 3, meperidine 75, and increments of 0.5 mg of midazolam and 12.5 meperidine sequentially. There was excellent cooperation and no desaturation occurred whatsoever. FINDINGS: She is a super morbidly obese woman, in no overt distress at this time. EGD: Larynx - symmetric limited views. There was no gagging with a standard scope. The patient tolerated the procedure quite well and again there was no gagging or spluttering and excellent tolerance. Esophagus - easily entered and the mucosa is normal in the upper, mid, and lower esophagus with the EG junction at 39.5, snug and normal and there are no signs of irritation, scarring, or chronic changes whatsoever. Stomach - empty with a small amount of saliva and bubbling mucus. There is no gastric retention. The mucosa is normal in the cardia, fundus, body, and antrum. The rugal folds and antrum appear normal. A CLOtest was taken. Duodenum - the pylorus, bulb, and second through fourth portions appear absolutely normal. Throughout the entire diagnostic study, the patient was responsive to voice and in no distress and without gagging. IMPRESSION: Normal gastroscopy and duodenoscopy - findings quite normal. There are no findings to support GERD or gastroparesis. This makes her PPI therapy of uncertain priority. Addendum: Clotest positive - with no findings acute or chronic treatment is not urgent and a very low priority - the complexity it will add to her over 30 meds and Hx of C Diff may permanently preclude/postpone it [id number]/[facility] #: [id number] MTDD
[2017-04-04] MEDS: Morphine INJ* 2 MG/ML 1 ML SYRINGE IV PRN ×2 (03:49→08:21)
[2017-04-04 05:53] LABS: Hematocrit 37 % (35-47); Mean Corpuscular HGB Conc 33 g/dl (31-36); Mean Corpuscular Hemoglobin 27 pg (27-31); Mean Corpuscular Volume 84 fL (80-97); Mean Platelet Volume 7 um3 (7.4-10.4); Red Blood Count 4.37 10^6/ul (4.0-5.4); Red Cell Distribution Width 13 % (10.5-15); White Blood Count 18.3 10^3/ul (3.5-10.8)
[2017-04-04 05:55] LABS: Comments Flag Yes
[2017-04-04 06:42] LABS: BUN/Creatinine Ratio 5.2 (8-20); C Reactive Protein 25.25 mg/L (< 5.00); Calcium 8.9 mg/dL (8.6-10.3); Potassium 3.3 mmol/L (3.5-5.0)
[2017-04-04] MEDS: Cholecalciferol TAB* 1000 UNITS PO SCH (08:14)
[2017-04-04] MEDS: predniSONE TAB* 10 MG PO SCH (08:15)
[2017-04-04] MEDS: Furosemide TAB* 40 MG PO SCH (08:15)
[2017-04-04] MEDS: Topiramate TAB(*) 25 MG PO SCH ×3 (08:16→20:47)
[2017-04-04] MEDS: Multivitamins/Minerals TAB PO SCH (08:16)
[2017-04-04] MEDS: Ferrous Sulfate TAB* 325 MG PO SCH (08:17)
[2017-04-04] MEDS: Omeprazole CAP* 20 MG PO SCH ×2 (08:17→20:48)
[2017-04-04] MEDS: Metoprolol Tartrate TAB* 50 mg PO SCH ×2 (08:18→20:48)
[2017-04-04] MEDS: Gabapentin CAP(*) 300 MG PO SCH ×3 (08:18→20:45)
[2017-04-04] MEDS: Dicyclomine CAP* 10 MG PO SCH ×2 (08:19→20:46)
[2017-04-04] MEDS: Sucralfate TAB* 1 GM PO SCH ×4 (08:20→20:45)
[2017-04-04] MEDS: VILAZODONE 20 MG PO SCH ×2 (08:20→22:25)
[2017-04-04] MEDS: Mycophenolate Mofetil TAB(*) 500 MG PO SCH ×2 (08:21→22:26)
[2017-04-04] MEDS: Ondansetron INJ* 2 MG/ML VIAL IV SCH ×4 (08:28→22:40)
[2017-04-04] MEDS: Nystatin SUSPENSION* 100000 UNITS/ML 5 ML UDC PO SCH ×4 (08:29→22:32)
[2017-04-04] MEDS: Insulin LISPRO* 1 UNITS UNIT SUBCUT SCH ×4 (08:39→22:31)
--- NOTE | 2017-04-04 09:15 | PN ---
Subjective Date of Service: 04/04/17 Interval History: Patient continues to complain of abd pain that is severe at times. The pain has changed however, and she is no longer complaining of pelvic/vaginal pain, stating that has resolved, her pain now is more cramping and sharp. She is still having loose watery stool. No vomiting, nausea is manageable and she is having just liquids still. Objective Active Medications: Acetaminophen (Tylenol Tab*) 650 mg PO Q4H PRN PRN Reason: PAIN Hydrocodone Bitart/Acetaminophen ([place] 5-325 Tab*) 1 tab PO Q4H PRN PRN Reason: PAIN Last Admin: 04/03/17 14:42 Dose: 1 tab Albuterol (Ventolin Hfa Inhaler*) 2 puff INH Q6H PRN PRN Reason: SOB/WHEEZING Atorvastatin Calcium (Lipitor*) 80 mg PO 2100 [facility] Last Admin: 04/03/17 21:05 Dose: 80 mg Calcium Carbonate (Tums*) 1,500 mg PO DAILY PRN PRN Reason: GERD Cholecalciferol (Vitamin D Tab*) 2,000 units PO DAILY [facility] Last Admin: 04/04/17 08:14 Dose: 2,000 units Dextrose (D50w Syringe 50 Ml*) 12.5 gm IV PUSH .FOR FS < 60 - SS PRN PRN Reason: FS < 60 Dicyclomine HCl (Bentyl Cap*) 10 mg PO BID [facility] Last Admin: 04/04/17 08:19 Dose: 10 mg Diphenhydramine HCl (Benadryl Iv*) 25 mg IV Q6H PRN PRN Reason: NAUSEA Ferrous Sulfate (Ferrous Sulfate Tab*) 325 mg PO DAILY [facility] Last Admin: 04/04/17 08:17 Dose: 325 mg Furosemide (Lasix Tab*) 40 mg PO DAILY [facility] Last Admin: 04/04/17 08:15 Dose: 40 mg Gabapentin (Neurontin Cap(*)) 300 mg PO 0900,1400 [facility] Last Admin: 04/04/17 08:18 Dose: 300 mg Gabapentin (Neurontin Cap(*)) 600 mg PO BEDTIME [facility] Last Admin: 04/03/17 21:06 Dose: 600 mg Haloperidol (Haldol Tab*) 1 mg PO Q6H PRN PRN Reason: HALLUCINATIONS Insulin Glargine (Lantus(*)) 120 units SUBCUT BEDTIME [facility] Last Admin: 04/03/17 21:10 Dose: 120 units Insulin Human Lispro (Humalog*) 0 units SUBCUT ACHS KRISTEN PRN Reason: Protocol Last Admin: 04/04/17 08:39 Dose: Not Given Loperamide HCl (Imodium Cap*) 2 mg PO BID PRN PRN Reason: DIARRHEA Last Admin: 04/03/17 05:37 Dose: 2 mg Lorazepam (Ativan Tab(*)) 1 mg PO BID PRN PRN Reason: ANXIETY Melatonin (Melatonin (Nf)) 3 mg PO BEDTIME PRN PRN Reason: SLEEP Last Admin: 04/03/17 22:14 Dose: 3 mg Metoprolol Tartrate (Lopressor Tab*) 50 mg PO BID [facility] Last Admin: 04/04/17 08:18 Dose: 50 mg Mirtazapine (Remeron Tab*) 22.5 mg PO BEDTIME PRN PRN Reason: SLEEP Mometasone Furoate (Asmanex 220 Mcg Mdi *) 2 puff INH BEDTIME [facility] Last Admin: 04/03/17 19:32 Dose: Not Given Morphine Sulfate (Morphine Inj (Syringe)*) 2 mg IV Q4H PRN PRN Reason: PAIN - MILD Last Admin: 04/04/17 08:21 Dose: 2 mg Multivitamins/Minerals (Theragran/Minerals Tab*) 1 tab PO QAM [facility] Last Admin: 04/04/17 08:16 Dose: 1 tab Mycophenolate Mofetil (Cellcept Tab(*)) 1,500 mg PO BID [facility] Last Admin: 04/04/17 08:21 Dose: 1,500 mg Nystatin (Nystatin Suspension*) 500,000 units PO QID [facility] Stop: 04/08/17 04:15 Last Admin: 04/04/17 08:29 Dose: Not Given Omeprazole (Prilosec Cap*) 20 mg PO DAILY@0730 [facility] Last Admin: 04/04/17 08:17 Dose: 20 mg Ondansetron HCl (Zofran Inj*) 4 mg IV ACHS [facility] Last Admin: 04/04/17 08:28 Dose: 4 mg Prazosin HCl (Minipress Cap*) 5 mg PO BEDTIME [facility] Last Admin: 04/03/17 21:06 Dose: 5 mg Prazosin HCl (Minipress Cap*) 1 mg PO BEDTIME [facility] Last Admin: 04/03/17 21:06 Dose: 1 mg Prednisone (Deltasone Tab*) 10 mg PO DAILY [facility] Last Admin: 04/04/17 08:15 Dose: 10 mg Simethicone (Mylicon*) 80 mg PO DAILY PRN PRN Reason: gas Sucralfate (Carafate*) 1 gm PO QID [facility] Last Admin: 04/04/17 08:20 Dose: 1 gm Topiramate (Topamax(*)) 50 mg PO TID [facility] Last Admin: 04/04/17 08:16 Dose: 50 mg Vilazodone HCl (Viibryd (Nf)) 20 mg PO BID [facility] PRN Reason: Protocol Last Admin: 04/04/17 08:20 Dose: 20 mg Zolpidem Tartrate (Ambien Tab*) 10 mg PO BEDTIME [facility] Last Admin: 04/03/17 22:15 Dose: 10 mg Vital Signs: Temp Pulse Resp BP Pulse Ox 98.0 F 73 18 128/65 99 04/04/17 07:34 04/04/17 07:34 04/04/17 08:21 04/04/17 07:34 04/04/17 07:34 Oxygen Devices in Use Now: None Appearance: Mildly uncomfortable appearing young obese female Respiratory: Symmetrical Chest Expansion and Respiratory Effort, Clear to Auscultation Cardiovascular: NL Sounds; No Murmurs; No JVD, RRR Abdominal: - - abd soft, BS present, diffuse TTP Extremities: No Edema Neurological: Alert and Oriented x 3 Result Diagrams: 04/04/17 05:32 04/04/17 05:32 Additional Lab and Data: . Diagnostic Imaging: Pelvic US - WNL EGD - unremarkable Gastric emptying study - unable to tolerate Assess/Plan/Problems-Billing Assessment: Ms. Leigh is a 36 yo female with a PMH that includes super morbid obesity, DM2 , gastroparesis, vasculitis limited to skin, HLD, HTN, depression, PTSD, borderline personality disorder, and PCOS who presented to the ED on 03/31/17 with c/o migrating abd pain x 2-3 weeks and low pelvic pain, as well as lack of appetite and vomiting. - Patient Problems (1) Abdominal pain Comment: With intractable n/v, now able to tolerate full liquids but she still has no interest in advancing to solid foods Exact etiology is not clear Pt has known IBS Urine porphobilinogen study pending to eval for porphyria Pelvic US is unremarkable EGD is unremarkable She has been evaluated by GI who does not believe her symptoms are primarily GI related Considered pelvic congestion syndrome and contacted radiologist, Dr Guevara for review of recent CT who did not see an large veins that would support that diagnosis She did have a thick white discharge, she received 2 doses of Diflucan which improved her pelvic/vaginal pain but she is now complaining of sharp cramping pain that more diffuse with diarrhea Will stop the erythromycin that was started for her gastroparesis and start amitriptyline to augment IBS treatment Will reattempt gastric emptying study tomorrow and send stool for Cdiff, culture , lactoferrin and blood (2) Gastroparesis due to DM Comment: Some improvement in nausea since starting erythromycin and scheduled Zofran, but pain has become worse Will stop the erythromycin and cont Zofran She was unable to tolerate gastric emptying study on Wednesday, will reattempt tomorrow Patient reports intolerance/failure of Reglan (3) Leukocytosis Comment: Chronic leukocytosis Likely due to prednisone Currently afebrile and no clear source of infection Continue to monitor (4) Diabetes Comment: Poorly controlled Continue home Lispro SSI and Lantus dosing HgbA1c 11.3 (5) HTN (hypertension) Comment: Normotensive Continue metoprolol (6) History of vasculitis Comment: With skin involvement Follows with Dr. Maradiaga Chronically treated with prednisone/Cellcept Continue current treatment (7) Morbid obesity Comment: BMI 60.9 (8) DVT prophylaxis Comment: SCDS Encourage ambulation (9) Anxiety and depression Comment: With PTSD and borderline personality disorder Continue home psychiatric medications Status and Disposition: Inpatient. Hopeful for discharge in 1-2 d
[2017-04-04] MEDS: Morphine INJ* 4 MG/ML 1 ML SYRINGE IV PRN ×3 (12:32→20:42)
--- NOTE | 2017-04-04 16:41 | PN ---
Hospitalist Progress Note CLOtest from EGD returned positive. Will start triple therapy for Hpylori infection. Discontinue order for gastric emptying study for tomorrow as the Hpylori would explain her persistent pain, nausea and vomiting.
[2017-04-04] MEDS: Mometasone 220 MCG MDI INH SCH (19:15)
[2017-04-04] MEDS: Amoxicillin PO (*) 500 MG CAP PO SCH (20:45)
[2017-04-04] MEDS: Clarithromycin TAB* 500 MG PO SCH (20:47)
[2017-04-04] MEDS: Prazosin CAP* 5 MG PO SCH (20:48)
[2017-04-04] MEDS: Amitriptyline TAB* 25 MG PO SCH ×2 (20:49→20:58)
[2017-04-04] MEDS: Prazosin CAP* 1 MG PO SCH (20:49)
[2017-04-04] MEDS ORDERED: Atorvastatin* 20 MG TAB PO SCH (21:00)
[2017-04-04] MEDS: CMCS - Melatonin (NF) 3 MG TAB PO PRN (22:24)
[2017-04-04] MEDS: Zolpidem TAB* 10 MG PO SCH (22:25)
[2017-04-04] MEDS: Insulin GLARGINE(*) 1 UNITS UNIT SUBCUT SCH (22:30)
[2017-04-04] MEDS: HYDROcodone/ACETAMIN 5-325 MG* 1 TAB PO PRN (22:40)
[2017-04-05] MEDS: Morphine INJ* 4 MG/ML 1 ML SYRINGE IV PRN ×2 (04:10→08:11)
[2017-04-05 07:42] VITALS: BP 121/72
[2017-04-05] MEDS: Omeprazole CAP* 20 MG PO SCH (08:07)
[2017-04-05] MEDS: Nystatin SUSPENSION* 100000 UNITS/ML 5 ML UDC PO SCH (08:07)
[2017-04-05] MEDS: Topiramate TAB(*) 25 MG PO SCH (08:07)
[2017-04-05] MEDS: Dicyclomine CAP* 10 MG PO SCH (08:08)
[2017-04-05] MEDS: predniSONE TAB* 10 MG PO SCH (08:08)
[2017-04-05] MEDS: Furosemide TAB* 40 MG PO SCH (08:08)
[2017-04-05] MEDS: Cholecalciferol TAB* 1000 UNITS PO SCH (08:08)
[2017-04-05] MEDS: Sucralfate TAB* 1 GM PO SCH (08:08)
[2017-04-05] MEDS: Clarithromycin TAB* 500 MG PO SCH (08:08)
[2017-04-05] MEDS: Amoxicillin PO (*) 500 MG CAP PO SCH (08:08)
[2017-04-05] MEDS: Multivitamins/Minerals TAB PO SCH (08:08)
[2017-04-05] MEDS: Metoprolol Tartrate TAB* 50 mg PO SCH (08:09)
[2017-04-05] MEDS: Gabapentin CAP(*) 300 MG PO SCH (08:09)
[2017-04-05] MEDS: VILAZODONE 20 MG PO SCH (08:10)
[2017-04-05] MEDS: Ferrous Sulfate TAB* 325 MG PO SCH (08:10)
[2017-04-05] MEDS: Mycophenolate Mofetil TAB(*) 500 MG PO SCH (08:10)
[2017-04-05] MEDS: Ondansetron INJ* 2 MG/ML VIAL IV SCH (08:10)
[2017-04-05] MEDS: Insulin LISPRO* 1 UNITS UNIT SUBCUT SCH (08:11)
--- NOTE | 2017-04-06 01:06 | DS ---
CC: Dr. Dhillon * DISCHARGE SUMMARY: DATE OF ADMISSION: 03/31/17 DATE OF DISCHARGE: 04/05/17 PRIMARY CARE PROVIDER: Dr. Dhillon. CONSULTING SULFONATOR OPERATOR: Dr. Jaime. DISCHARGING PROVIDER: SCOTT Graham. SUPERVISING PHYSICIAN: Hector Mcrae MD.* (DICTATED BY SCOTT GRAHAM) PRIMARY DISCHARGE DIAGNOSES: 1. Helicobacter pylori infection with complaints of abdominal pain and intractable nausea and vomiting. 2. Vaginal yeast infection. 3. Leukocytosis - likely chronic secondary to prednisone use chronically. 4. Probable gastroparesis, intolerant to Reglan and erythromycin. SECONDARY DISCHARGE DIAGNOSES: 1. Poorly controlled insulin-dependent diabetes. 2. Morbid obesity with BMI of 61. 3. History of vasculitis, followed by Dr. Maradiaga with chronic prednisone and CellCept therapy. 4. Anxiety and depression. DISCHARGE MEDICATIONS: 1. Haldol 1 mg p.o. q.6 hours as needed for hallucinations. 2. Protonix 40 mg p.o. b.i.d. x14 days. 3. Acetaminophen 650 mg p.o. q.6 hours as needed for pain or fever. 4. Albuterol inhaler 2 puffs inhaled q. 6 hours as needed for shortness of breath. 5. Amoxicillin 1000 mg p.o. b.i.d. x14 days. 6. Atorvastatin 80 mg p.o. daily with instructions to hold this medication while she is taking antibiotic as there is a reaction between clarithromycin and atorvastatin. 7. Biotin 10,000 mcg p.o. daily. 8. Vitamin D 2000 units p.o. daily. 9. Clarithromycin 500 mg p.o. q.12 hours x14 days. 10. Bentyl 10 mg p.o. twice daily. 11. Ferrous sulfate 325 mg p.o. daily. 12. Diflucan 150 mg p.o. once and may repeat in 24 hours if necessary. 13. Fluticasone 1 puff inhaled twice daily. 14. Lasix 40 mg p.o. daily. 15. Neurontin 600 mg p.o. at bedtime and 300 mg in the morning. 16. Vicodin 5/325 one tablet p.o. q.4 hours as needed for pain. 17. Lantus 120 mg p.o. daily. 18. Humalog on sliding scale with mealtime. 19. Lactobacillus 1 capsule p.o. daily. 20. Loperamide 2 mg p.o. twice daily as needed for diarrhea. 21. Loratadine 10 mg p.o. daily. 22. Lorazepam 1 mg p.o. twice daily as needed for severe anxiety. 23. Melatonin 3 mg p.o. at bedtime. 24. Metoprolol tartrate 50 mg p.o. twice daily. 25. Topical metronidazole cream apply daily. 26. Mirtazapine 22.5 mg p.o. at bedtime. 27. Multivitamin 1 tablet p.o. daily. 28. CellCept 1500 mg p.o. twice daily. 29. Zofran 4 mg p.o. q.6 hours as needed for nausea. 30. Prazosin 6 mg p.o. at bedtime. 31. Simethicone 80 mg p.o. daily. 32. Januvia 100 mg p.o. daily. 33. Sucralfate 1 g p.o. 4 times daily. 34. Topiramate 50 mg p.o. t.i.d. 35. Viibryd 20 mg p.o. b.i.d. 36. Ambien 10 mg p.o. at bedtime. 37. Benadryl 50 mg p.o. q.6 hours as needed. 38. Prednisone 10 mg p.o. daily. Medication Changes: 1. Amoxicillin x2 weeks. 2. Clarithromycin x2 weeks. 3. Zofran p.r.n. 4. Diflucan. 5. Vicodin p.r.n. 6. Instructions to hold atorvastatin while taking clarithromycin. HOSPITAL IMAGIN. Pelvic ultrasound is within normal limits. 2. EGD is unremarkable. HOSPITAL COURSE: This is a 36-year-old female with multiple medical problems including poorly controlled insulin-dependent diabetes, history of vasculitis managed on chronic prednisone and CellCept, probable gastroparesis and morbid obesity as well as a long psychiatric history, who presented to the emergency department with complaints of abdominal pain and intractable vomiting. This was patient's fourth presentation in two weeks with the same complaint. She had reported liquids only for approximately 2 weeks prior to hospital admission. Her initial labs were largely unremarkable. She did have leukocytosis with white blood cell count of 18,000, which seemed to be chronic for her when compared to prior studies. Her magnesium was slightly low at 1.5. Remainder of chemistries were normal. Lactic acid was moderately elevated at 2.6 and CRP of 38. Due to patient's complaints and frequent visits to the emergency department with the same complaint, the patient was subsequently admitted for further treatment and evaluation of her concerns. Patient initially described her abdominal pain really as more pelvic pain and on pelvic exam, it appeared that she likely had a vaginal yeast infection and was subsequently treated with Diflucan, which did resolve her complaints of pelvic and vulvar pain. She continued to have more epigastric cramping pain with persistent nausea and frequent vomiting. She underwent EGD with Gastroenterology, which was unremarkable but biopsies were taken and CLOtesting performed, which came back positive. Treatment was subsequently initiated for H. pylori infection with triple therapy. At the time of discharge, the patient was able to tolerate liquids without significant nausea and her pain was manageable with oral analgesics. DISPOSITION AND FOLLOWUP PLAN: Patient is being discharged to home with medication changes as outlined above. Recommend close followup with her primary care provider. If her symptoms have not resolved in 2 weeks after completing triple therapy, recommend repeat testing for H. pylori. Also suggested to the patient that her vaginal and pelvic pain may return due to the antibiotic, which has been prescribed and she was also given a prescription for Diflucan. Patient may require further GI followup. SCOTT GRAHAM [id number]/[facility] #: [id number]
== END 2017-04-05 11:40 | disposition home health service (06) | DRG 248 ==
LOC: ED 17:45 → MED 20:34 → OBSVTOIN 04-02 15:41
PROVIDERS: ADMIT Hospitalist; ATTEND Hospitalist
PROC: 0DB68ZX Excision of Stomach, Via Natural or Artificial Opening Endoscopic, Diagnostic (ICD-10-PCS; principal; 2017-04-02)
DX: A04.8 Other specified bacterial intestinal infections (principal); Z68.44 Body mass index [BMI] 60.0-69.9, adult; E11.43 Type 2 diabetes mellitus with diabetic autonomic (poly)neuropathy; K31.84 Gastroparesis; E11.65 Type 2 diabetes mellitus with hyperglycemia; K76.0 Fatty (change of) liver, not elsewhere classified; M35.00 Sjogren syndrome, unspecified; E78.5 Hyperlipidemia, unspecified; E78.00 Pure hypercholesterolemia, unspecified; K21.9 Gastro-esophageal reflux disease without esophagitis; F31.9 Bipolar disorder, unspecified; F43.10 Post-traumatic stress disorder, unspecified; F41.9 Anxiety disorder, unspecified; F17.210 Nicotine dependence, cigarettes, uncomplicated; K58.9 Irritable bowel syndrome, unspecified; E66.01 Morbid (severe) obesity due to excess calories; E28.2 Polycystic ovarian syndrome; L71.9 Rosacea, unspecified; G43.909 Migraine, unspecified, not intractable, without status migrainosus; D72.829 Elevated white blood cell count, unspecified; K64.9 Unspecified hemorrhoids; E83.42 Hypomagnesemia; T38.0X5A Adverse effect of glucocorticoids and synthetic analogues, initial encounter; B37.3 Candidiasis of vulva and vagina; L95.9 Vasculitis limited to the skin, unspecified; M54.14 Radiculopathy, thoracic region; M54.17 Radiculopathy, lumbosacral region; F60.3 Borderline personality disorder; J45.909 Unspecified asthma, uncomplicated; Z56.0 Unemployment, unspecified; Z88.2 Allergy status to sulfonamides; Z88.5 Allergy status to narcotic agent; Z88.8 Allergy status to other drugs, medicaments and biological substances; Z88.6 Allergy status to analgesic agent; Z91.030 Bee allergy status; Z90.49 Acquired absence of other specified parts of digestive tract; Z83.3 Family history of diabetes mellitus; Z82.49 Family history of ischemic heart disease and other diseases of the circulatory system; Z79.4 Long term (current) use of insulin
CPT/HCPCS: 36415; 76856; 80048; 80053; 83036; 83605; 83690; 83735; 84110; 85025; 86140; 86703; 87040; 87077; 90732; 93005; 99156; 99157; A9270-GY; G0378; J2250; J2270; J2310; J2405; J3475; J7512

== ENCOUNTER → 2017-05-15 17:53 | Emergency (ER) | payer OTHER ==
[~2017-05-15 17:53] MED LIST: Aspirin Low Dose CHEW TAB* 81 MG PO ONE; Dextrose 50% Syringe 50 ML* 25 GM/50 ML SYRINGE IV PUSH PRN; Insulin LISPRO* 1 UNITS UNIT SUBCUT ONE; Pantoprazole IV* 40 MG IV ONE; Sucralfate TAB* 1 GM PO ONE
[2017-05-15 19:52] LABS: Hematocrit 41 % (35-47); Hemoglobin 13.5 g/dl (12.0-16.0); Mean Corpuscular HGB Conc 33 g/dl (31-36); Mean Corpuscular Hemoglobin 28 pg (27-31); Mean Corpuscular Volume 84 fL (80-97); Mean Platelet Volume 7 um3 (7.4-10.4); Red Blood Count 4.89 10^6/ul (4.0-5.4); Red Cell Distribution Width 14 % (10.5-15); White Blood Count 23.5 10^3/ul (3.5-10.8)
[2017-05-15 20:04] LABS: ALT 11 U/L (7-52); AST 8 U/L (13-39); Albumin 3.5 g/dL (3.2-5.2); Alkaline Phosphatase 129 U/L (34-104); Anion Gap 9 mmol/L (2-11); BUN/Creatinine Ratio 21.7 (8-20); Blood Urea Nitrogen 15 mg/dL (6-24); CO2 Carbon Dioxide 24 mmol/L (22-32); Calcium 10.1 mg/dL (8.6-10.3); Chloride 96 mmol/L (101-111); EGFR African American 125.3 (>60); EGFR Non-African American 97.4 (>60); Globulin 4.6 g/dL (2-4); Potassium 4.3 mmol/L (3.5-5.0); Sodium 129 mmol/L (133-145); Total Protein 8.1 g/dL (6.4-8.9)
[2017-05-15 20:06] LABS: Glucose 521 mg/dL (70-100)
[2017-05-15 20:07] LABS: Troponin I 0.01 ng/mL (<0.04)
--- NOTE | 2017-05-15 20:12 | RAD ---
INDICATION: Chest pain and palpitations. Anxiety. COMPARISON: March 26, [address] March 23, 2017 chest radiograph. TECHNIQUE: Dual energy PA and routine lateral views of the chest were obtained. REPORT: Clear lungs and pleural spaces. Negative for pneumothorax. The heart, pulmonary vasculature, and mediastinal contours are unremarkable. Unremarkable osseous structures and soft tissue contours accounting for body habitus. IMPRESSION: No evidence for acute intrathoracic disease.
[2017-05-15] MEDS: NS 0.9% 1000 ML* 2,000 ML IV ONE (21:09)
[2017-05-15 23:00] VITALS: BP 119/73
--- NOTE | 2017-05-16 00:08 | ED ---
Keisha Richmond Emily, scribed for Sanjay Velazquez MD on 05/15/17 at 1917 . HPI Chest Pain - HPI Summary HPI Summary: This patient is a 36 year old F presenting to [facility] with a chief complaint of central CP radiating to arm and back that began at 1640. Symptoms worsened [employer]. The patient rates the pain 8/10 in severity. Symptoms aggravated by nothing. Symptoms alleviated by nothing. Patient reports palpitations, weakness, and shakiness. Patient denies nausea and SOB. Pt has had previous similar pains of lesser severities. - History of Current Complaint Chief Complaint: EDChestPainROMI Time Seen by Provider: 05/15/17 18:47 Hx Obtained From: Patient Hx Last Menstrual Period: October 07 Onset/Duration: Started Hours Ago, Still Present Timing: Constant, Lasting Hours Initial Severity: Severe Current Severity: Severe Pain Intensity: 8 Pain Scale Used: 0-10 Numeric Chest Pain Radiates: Yes Chest Pain Radiates To:: Back, Arm Aggravating Factor(s): Nothing Alleviating Factor(s): Nothing Associated Signs and Symptoms: Positive: Weakness, Palpitations. Negative: Shortness of Breath, Nausea - Additional Pertinent History Primary Care Physician: [id number] - Allergy/Home Medications Allergies/Adverse Reactions: Allergies Allergy/AdvReac Type Severity Reaction Status Date / Time Asenapine Allergy Rash Verified 05/15/17 18:01 Bee Venom Allergy Anaphylatic Verified 05/15/17 18:01 Shock Nalbuphine [From Nubain] Allergy Rash Verified 05/15/17 18:01 Paroxetine [From Paxil] Allergy Vomiting Verified 05/15/17 18:01 Sulfa Antibiotics Allergy Unknown Verified 05/15/17 18:01 Reaction Details Sulfamethoxazole Allergy Unknown Verified 05/15/17 18:01 w/Trimethoprim Reaction [From Bactrim] Details Tramadol Allergy Rash Verified 05/15/17 18:01 zepeda Allergy Nausea And Uncoded 05/15/17 18:01 Vomiting PMH/Surg Hx/FS Hx/Imm Hx Previously Healthy: No Endocrine/Hematology History: Reports: Hx Diabetes - type 1 - ON INSULIN Cardiovascular History: Reports: Hx Angina, Hx Hypercholesterolemia, Other Cardiovascular Problems/Disorders - vasculitis. tachycardia Denies: Hx Coronary Artery Disease, Hx Hypertension - ON BP MEDS FOR TACHY, Hx Myocardial Infarction, Hx Pacemaker/ICD, Hx Peripheral Vascular Disease, Hx Valvular Heart Disease Respiratory History: Reports: Hx Asthma Denies: Hx Chronic Obstructive Pulmonary Disease (COPD) GI History: Reports: Hx Crohn's Disease, Hx Gastroesophageal Reflux Disease, Hx Irritable Bowel, Other GI Disorders - gastroparesis History: Denies: Hx Dialysis, Hx Renal Disease, Other Problems/Disorders Musculoskeletal History: Denies: Hx Arthritis, Hx Osteoporosis Sensory History: Reports: Hx Contacts or Glasses Denies: Hx Deafness, Hx Hearing Aid Opthamlomology History: Reports: Hx Contacts or Glasses Neurological History: Reports: Hx Headaches, Hx Migraine Denies: Hx Seizures, Hx Transient Ischemic Attacks (TIA) Psychiatric History: Reports: Hx Anxiety, Hx Depression, Hx Panic Disorder - PTSD, Hx Post Traumatic Stress Disorder, Other Psychiatric Issues/Disorders - Borderline Personality Disorder Denies: Hx Bipolar Disorder - Surgical History Surgery Procedure, Year, and Place: Cholecystectomy;. Cardiac Catherterization- NO STENT; Infectious Disease History: No Infectious Disease History: Reports: Hx of Known/Suspected MRSA - treated. noncarrier now Denies: Traveled Outside the [place] in Last 30 Days - Family History Known Family History: Positive: Cardiac Disease, Diabetes, Other - blood clots ( mother), pacemaker (father) Negative: Hypertension - Social History Alcohol Use: None Hx Substance Use: No Substance Use Type: Reports: None Hx Tobacco Use: Yes Smoking Status (MU): Current Every Day Smoker Type: Cigarettes Amount Used/How Often: 1/2 pack q day Have You Smoked in the Last Year: Yes Review of Systems Positive: Palpitations, Chest Pain Negative: Shortness Of Breath Negative: Nausea Neurological: Other - Positive "shakiness" Positive: Weakness All Other Systems Reviewed And Are Negative: Yes Physical Exam Triage Information Reviewed: Yes Vital Signs On Initial Exam: Initial Vitals Temp Pulse Resp BP Pulse Ox 97.6 F 90 18 135/99 99 05/15/17 17:57 05/15/17 17:57 05/15/17 17:57 05/15/17 17:57 05/15/17 17:57 Vital Signs Reviewed: Yes Appearance: Positive: Well-Appearing, No Pain Distress, Obese Skin: Positive: Warm, Skin Color Reflects Adequate Perfusion, Dry Head/Face: Positive: Normal Head/Face Inspection Eyes: Positive: Normal ENT: Positive: Normal ENT inspection Neck: Positive: Supple, Nontender Respiratory/Lung Sounds: Positive: Clear to Auscultation, Breath Sounds Present Cardiovascular: Positive: RRR Abdomen Description: Positive: Soft, Other: - Tender in anterior chest wall Bowel Sounds: Positive: Present Musculoskeletal: Positive: Normal Neurological: Positive: Normal Psychiatric: Positive: Affect/Mood Appropriate Diagnostics - Vital Signs Vital Signs Temp Pulse Resp BP Pulse Ox 05/15/17 17:57 97.6 F 90 18 135/99 99 - Laboratory Lab Results: Lab Results 05/15/17 05/15/17 05/15/17 Range/Units 19:40 19:40 19:40 WBC 23.5 H (3.5-10.8) 10^3/ul RBC 4.89 (4.0-5.4) 10^6/ul Hgb 13.5 (12.0-16.0) g/dl Hct 41 (35-47) % MCV 84 (80-97) fL MCH 28 (27-31) pg MCHC 33 (31-36) g/dl RDW 14 (10.5-15) % Plt Count 370 (150-450) 10^3/ul MPV 7 L (7.4-10.4) um3 Neut % (Auto) 79.1 (38-83) % Lymph % (Auto) 13.9 L (25-47) % [place] % (Auto) 6.5 (1-9) % Eos % (Auto) 0.1 (0-6) % Baso % (Auto) 0.4 (0-2) % Absolute Neuts (auto) 18.6 H (1.5-7.7) 10^3/ul Absolute Lymphs (auto) 3.3 (1.0-4.8) 10^3/ul Absolute Monos (auto) 1.5 H (0-0.8) 10^3/ul Absolute Eos (auto) 0 (0-0.6) 10^3/ul Absolute Basos (auto) 0.1 (0-0.2) 10^3/ul Absolute Nucleated RBC 0.01 10^3/ul Nucleated RBC % 0 D-Dimer, Quantitative < 200 (Less Than 230) ng/mL Sodium 129 L (133-145) mmol/L Potassium 4.3 (3.5-5.0) mmol/L Chloride 96 L (101-111) mmol/L Carbon Dioxide 24 (22-32) mmol/L Anion Gap 9 (2-11) mmol/L BUN 15 (6-24) mg/dL Creatinine 0.69 (0.51-0.95) mg/dL Est GFR ( Amer) 125.3 (>60) Est GFR (Non-Af Amer) 97.4 (>60) BUN/Creatinine Ratio 21.7 H (8-20) Glucose 521 H* (70-100) mg/dL POC Glucose (mg/dL) (70-100) mg/dL Lactic Acid (0.5-2.0) mmol/L Calcium 10.1 (8.6-10.3) mg/dL Total Bilirubin 0.20 (0.2-1.0) mg/dL AST 8 L (13-39) U/L ALT 11 (7-52) U/L Alkaline Phosphatase 129 H (34-104) U/L Troponin I 0.01 (<0.04) ng/mL Total Protein 8.1 (6.4-8.9) g/dL Albumin 3.5 (3.2-5.2) g/dL Globulin 4.6 H (2-4) g/dL Albumin/Globulin Ratio 0.8 L (1-3) Beta HCG, Quant < 0.60 mIU/mL 05/15/17 05/15/17 05/15/17 Range/Units 19:40 22:33 22:33 WBC (3.5-10.8) 10^3/ul RBC (4.0-5.4) 10^6/ul Hgb (12.0-16.0) g/dl Hct (35-47) % MCV (80-97) fL MCH (27-31) pg MCHC (31-36) g/dl RDW (10.5-15) % Plt Count (150-450) 10^3/ul MPV (7.4-10.4) um3 Neut % (Auto) (38-83) % Lymph % (Auto) (25-47) % [place] % (Auto) (1-9) % Eos % (Auto) (0-6) % Baso % (Auto) (0-2) % Absolute Neuts (auto) (1.5-7.7) 10^3/ul Absolute Lymphs (auto) (1.0-4.8) 10^3/ul Absolute Monos (auto) (0-0.8) 10^3/ul Absolute Eos (auto) (0-0.6) 10^3/ul Absolute Basos (auto) (0-0.2) 10^3/ul Absolute Nucleated RBC 10^3/ul Nucleated RBC % D-Dimer, Quantitative (Less Than 230) ng/mL Sodium (133-145) mmol/L Potassium (3.5-5.0) mmol/L Chloride (101-111) mmol/L Carbon Dioxide (22-32) mmol/L Anion Gap (2-11) mmol/L BUN (6-24) mg/dL Creatinine (0.51-0.95) mg/dL Est GFR ( Amer) (>60) Est GFR (Non-Af Amer) (>60) BUN/Creatinine Ratio (8-20) Glucose (70-100) mg/dL POC Glucose (mg/dL) 349 H (70-100) mg/dL Lactic Acid 2.7 H* (0.5-2.0) mmol/L Calcium (8.6-10.3) mg/dL Total Bilirubin (0.2-1.0) mg/dL AST (13-39) U/L ALT (7-52) U/L Alkaline Phosphatase (34-104) U/L Troponin I 0.01 (<0.04) ng/mL Total Protein (6.4-8.9) g/dL Albumin (3.2-5.2) g/dL Globulin (2-4) g/dL Albumin/Globulin Ratio (1-3) Beta HCG, Quant mIU/mL Result Diagrams: 05/15/17 19:40 05/15/17 19:40 Lab Statement: Any lab studies that have been ordered have been reviewed, and results considered in the medical decision making process. - Radiology CXR Radiology Interpretation Completed By: Radiologist - CXR read by radiologist reveals no evidence for acute intrathoracic disease. ED physician has reviewed this radiology report and agrees. - EKG 1804 Cardiac Rate: NL - 91 BPM EKG Rhythm: Sinus Rhythm Chest Pain Course/Dx - Course Course Of Treatment: Ms. Leigh presented with CP. HEr CP W/U was negative, however her BS was quite high at 521. She normally runs high in the 300's and was given some humalog with improvement. A lot of her labs were off a bit but a review showed that they were consistent with the past. - Diagnoses Provider Diagnoses: Chest pain Discharge - Discharge Plan Condition: Stable Disposition: HOME Patient Education Materials: Chest Pain (ED) Referrals: Kimberlyn Dhillon MD [Primary Care Provider] - 1 Week Additional Instructions: RETURN TO THE EMERGENCY DEPARTMENT FOR CHANGING OR WORSENING SYMPTOMS. The documentation as recorded by the Keisha ruelas Emily accurately reflects the service I personally performed and the decisions made by me, Sanjay Velazquez MD.
== END | disposition home or self-care (01) ==
LOC: ED 17:53
DX: R07.9 Chest pain, unspecified (principal); R53.1 Weakness; R00.2 Palpitations; F17.210 Nicotine dependence, cigarettes, uncomplicated
CPT/HCPCS: 36415; 71020; 80053; 83605; 84484; 84702; 85025; 85379; 93005; 99282; A9270-GY

== ENCOUNTER 2017-06-17 16:33 | Emergency (ER) | payer OTHER ==
[2017-06-17] MEDS ORDERED: Ketorolac INJ* 60 MG/2 ML VIAL IM ONE (17:42)
[2017-06-17 18:37] VITALS: BP 115/75
--- NOTE | 2017-06-17 19:41 | ED ---
Upper Extremity Pain - HPI Summary HPI Summary: Patient presents to the ED with CC of right shoulder pain and swelling. She is seen by Dr. Booker for some tendonitis and has had an MRI. She notes today the sharp pain and "burning" sensation have been worse lately and she called Dr. Booker who sent her to the ED. She was concerned with infection. 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 She has had neuropathy in the right shoulder with no findings on MRI and no surgery is scheduled. Denies injury to the arm. Denies fevers, sweats or chills. No deformities noted on exam. - History of Current Complaint Chief Complaint: EDExtremityUpper Stated Complaint: RT SHOULDER PAIN/NUMBNESS, SWOLLEN Time Seen by Provider: 06/17/17 16:50 Hx Obtained From: Patient Hx Last Menstrual Period: October 07 Onset/Duration: Started Days Ago Timing: Constant Severity Initially: Moderate Severity Currently: Moderate Pain Location: Shoulder Character: Aching, Burning Aggravating Factor(s): Movement, Lifting, Flexion, Extension Alleviating Factor(s): Rest Associated Signs & Symptoms: Positive: Swelling Related History: Dominant Hand Right - Risk Factors Non-Orthopedic Risk Factor: Negative DVT Risk Factors: Negative Septic Arthritis Risk Factor: Negative Compartment Syndrome Risk Factors: Pain, Paresthesias - Allergies/Home Medications Allergies/Adverse Reactions: Allergies Allergy/AdvReac Type Severity Reaction Status Date / Time Asenapine Allergy Rash Verified 06/11/17 12:32 Bee Venom Allergy Anaphylatic Verified 06/11/17 12:32 Shock Nalbuphine [From Nubain] Allergy Rash Verified 06/11/17 12:32 Paroxetine [From Paxil] Allergy Vomiting Verified 06/11/17 12:32 Sulfa Antibiotics Allergy Unknown Verified 06/11/17 12:32 Reaction Details Sulfamethoxazole Allergy Unknown Verified 06/11/17 12:32 w/Trimethoprim Reaction [From Bactrim] Details Tramadol Allergy Rash Verified 06/11/17 12:32 zepeda Allergy Nausea And Uncoded 06/11/17 12:32 Vomiting PMH/Surg Hx/FS Hx/Imm Hx Previously Healthy: No Endocrine/Hematology History: Reports: Hx Diabetes - type 1 - ON INSULIN Cardiovascular History: Reports: Hx Angina, Hx Hypercholesterolemia, Other Cardiovascular Problems/Disorders - vasculitis. tachycardia Denies: Hx Coronary Artery Disease, Hx Hypertension - ON BP MEDS FOR TACHY, Hx Myocardial Infarction, Hx Pacemaker/ICD, Hx Peripheral Vascular Disease, Hx Valvular Heart Disease Respiratory History: Reports: Hx Asthma Denies: Hx Chronic Obstructive Pulmonary Disease (COPD) GI History: Reports: Hx Crohn's Disease, Hx Gastroesophageal Reflux Disease, Hx Irritable Bowel, Other GI Disorders - gastroparesis History: Denies: Hx Dialysis, Hx Renal Disease, Other Problems/Disorders Musculoskeletal History: Denies: Hx Arthritis, Hx Osteoporosis Sensory History: Reports: Hx Contacts or Glasses Denies: Hx Deafness, Hx Hearing Aid Opthamlomology History: Reports: Hx Contacts or Glasses Neurological History: Reports: Hx Headaches, Hx Migraine Denies: Hx Seizures, Hx Transient Ischemic Attacks (TIA) Psychiatric History: Reports: Hx Anxiety, Hx Depression, Hx Panic Disorder - PTSD, Hx Post Traumatic Stress Disorder, Other Psychiatric Issues/Disorders - Borderline Personality Disorder Denies: Hx Bipolar Disorder - Surgical History Surgery Procedure, Year, and Place: Cholecystectomy;. Cardiac Catherterization- NO STENT; - Immunization History Hx Pertussis Vaccination: No Immunizations Up to Date: Unable to Obtain/Confirm Infectious Disease History: No Infectious Disease History: Reports: Hx of Known/Suspected MRSA - treated. noncarrier now Denies: Traveled Outside the [place] in Last 30 Days - Family History Known Family History: Positive: Cardiac Disease, Diabetes, Other - blood clots ( mother), pacemaker (father) Negative: Hypertension - Social History Occupation: Unemployed Lives: Alone Alcohol Use: None Hx Substance Use: No Substance Use Type: Reports: None Hx Tobacco Use: Yes Smoking Status (MU): Current Every Day Smoker Type: Cigarettes Amount Used/How Often: 1/2 pack q day Have You Smoked in the Last Year: Yes Review of Systems Constitutional: Negative Eyes: Negative Negative: Dental Pain, Sore Throat, Ear Ache Cardiovascular: Negative Negative: Palpitations, Chest Pain Respiratory: Negative Negative: Shortness Of Breath Genitourinary: Negative Positive: no symptoms reported, see HPI Positive: Arthralgia - right shoulder pain Positive: Other - no ecchymosis noted Neurological: Negative Psychological: Normal All Other Systems Reviewed And Are Negative: Yes Physical Exam Triage Information Reviewed: Yes Vital Signs On Initial Exam: Initial Vitals Temp Pulse Resp BP Pulse Ox 96.4 F 100 20 140/90 100 06/17/17 16:40 10/26/17 16:40 06/17/17 16:40 06/17/17 16:40 06/17/17 16:40 Vital Signs Reviewed: Yes Appearance: Positive: Well-Appearing, Well-Nourished Skin: Positive: Warm, Skin Color Reflects Adequate Perfusion Head/Face: Positive: Normal Head/Face Inspection Eyes: Positive: Normal, RICO, Conjunctiva Clear Neck: Positive: Supple, No Lymphadenopathy Respiratory/Lung Sounds: Positive: Clear to Auscultation, Breath Sounds Present Cardiovascular: Positive: Normal, RRR, Pulses are Symmetrical in both Upper and Lower Extremities Musculoskeletal: Positive: Pain @ - right shoulder just inferior to the acromion Neurological: Positive: Speech Normal Psychiatric: Positive: Normal - [place] Coma Scale Coma Scale Total: 15 Diagnostics - Vital Signs Vital Signs Temp Pulse Resp BP Pulse Ox 06/17/17 18:35 92 18 115/75 98 06/17/17 16:40 96.4 F 100 20 140/90 100 - Laboratory Lab Statement: Any lab studies that have been ordered have been reviewed, and results considered in the medical decision making process. Course/Dx - Course Course Of Treatment: During the course of treatment, discussed treatment options with patient. Patient does not feel she needs an xray since she has had an MRI of the shouder with no findings. She would like pain control and is requesting toradol. She is given 60mg IM toradol in the ED and given 4 days prescription. She is OK with plan and discharge. On physical exam, provider does not appreciate a size difference between bilateral arms. Patient has a burning sensation and exquisite tenderness to just inferior to the right acromion. She is to follow up with Dr. Booker soon. No signs of infection. - Diagnoses Differential Diagnosis/HQI/PQRI: Positive: Contusion, Fracture (Open), Fracture (Closed) Provider Diagnoses: Right shoulder pain Discharge - Discharge Plan Condition: Stable Disposition: HOME Prescriptions: Ketorolac TAB * [Toradol TAB *] 10 mg PO Q6H #16 tab Patient Education Materials: Peripheral Neuropathy (ED), Paresthesia (ED) Referrals: Kimberlyn Dhillon MD [Primary Care Provider] - Additional Instructions: Please follow up with both Dr. Booker and Dr. Aguilera about your current neuropathy symptoms As discussed, there are no signs of infection If you develop worsening symptoms, you may always return to the ED Toradol four times daily for 4 days Do not use any NSAIDS while taking the Toradol which include advil, ibuprofen, naproxen, aleve
== END 2017-06-17 18:41 | disposition home or self-care (01) ==
LOC: ED 16:33
DX: M25.511 Pain in right shoulder (principal); F17.210 Nicotine dependence, cigarettes, uncomplicated
CPT/HCPCS: 96372; 99282; J1885

== ENCOUNTER 2017-07-20 14:48 | Emergency (ER) | payer OTHER ==
[2017-07-20] MEDS ORDERED: oxyCODONE/Acetamin 5/325 MG* TAB PO ONE (15:40)
--- NOTE | 2017-07-20 15:52 | ED ---
Vanessa Richmond Alfonso, scribed for Kirill Green MD on 07/20/17 at 1527 . Complex/Multi-Sys Presentation - HPI Summary HPI Summary: This patient is a 36 year old F BIBA to [facility] with a chief complaint of I think I am having a flare-up from my really rare skin vasculitis worse since earlier today. The patient rates the pain 8/10 in severity. Symptoms aggravated by nothing. Symptoms alleviated by nothing. Patient reports weakness, dizziness , and it all feels like on fire where the wounds are. Dr. Maradiaga is the patients store merchandiser who the patient consulted this morning. - History Of Current Complaint Chief Complaint: EDRashSkinAbscess Time Seen by Provider: 07/20/17 15:17 Hx Obtained From: Patient Onset/Duration: Gradual Onset, Still Present, Worse Since - earlier today Timing: Constant Aggravating Factor(s): nothing Alleviating Factor(s): nothing Associated Signs And Symptoms: Positive: Other - weakness, dizziness, and it all feels like on fire where the wounds are. - Allergies/Home Medications Allergies/Adverse Reactions: Allergies Allergy/AdvReac Type Severity Reaction Status Date / Time Asenapine Allergy Rash Verified 06/11/17 12:32 Bee Venom Allergy Anaphylatic Verified 06/11/17 12:32 Shock Nalbuphine [From Nubain] Allergy Rash Verified 06/11/17 12:32 Paroxetine [From Paxil] Allergy Vomiting Verified 06/11/17 12:32 Sulfa Antibiotics Allergy Unknown Verified 06/11/17 12:32 Reaction Details Sulfamethoxazole Allergy Unknown Verified 06/11/17 12:32 w/Trimethoprim Reaction [From Bactrim] Details Tramadol Allergy Rash Verified 06/11/17 12:32 zepeda Allergy Nausea And Uncoded 06/11/17 12:32 Vomiting PMH/Surg Hx/FS Hx/Imm Hx Endocrine/Hematology History: Reports: Hx Diabetes - type 1 - ON INSULIN Cardiovascular History: Reports: Hx Angina, Hx Hypercholesterolemia, Other Cardiovascular Problems/Disorders - vasculitis. tachycardia Denies: Hx Coronary Artery Disease, Hx Hypertension - ON BP MEDS FOR TACHY, Hx Myocardial Infarction, Hx Pacemaker/ICD, Hx Peripheral Vascular Disease, Hx Valvular Heart Disease Respiratory History: Reports: Hx Asthma Denies: Hx Chronic Obstructive Pulmonary Disease (COPD) GI History: Reports: Hx Crohn's Disease, Hx Gastroesophageal Reflux Disease, Hx Irritable Bowel, Other GI Disorders - gastroparesis History: Denies: Hx Dialysis, Hx Renal Disease, Other Problems/Disorders Musculoskeletal History: Denies: Hx Arthritis, Hx Osteoporosis Sensory History: Reports: Hx Contacts or Glasses Denies: Hx Deafness, Hx Hearing Aid Opthamlomology History: Reports: Hx Contacts or Glasses Denies: Hx Legally Blind EENT History: Denies: Hx Deafness Neurological History: Reports: Hx Headaches, Hx Migraine Denies: Hx Seizures, Hx Transient Ischemic Attacks (TIA) Psychiatric History: Reports: Hx Anxiety, Hx Depression, Hx Panic Disorder - PTSD, Hx Post Traumatic Stress Disorder, Other Psychiatric Issues/Disorders - Borderline Personality Disorder Denies: Hx Bipolar Disorder - Surgical History Surgery Procedure, Year, and Place: Cholecystectomy;. Cardiac Catherterization- NO STENT; Infectious Disease History: Yes Infectious Disease History: Reports: Hx of Known/Suspected MRSA - treated. noncarrier now Denies: Traveled Outside the [place] in Last 30 Days - Family History Known Family History: Positive: Cardiac Disease, Diabetes, Other - blood clots ( mother), pacemaker (father) Negative: Hypertension - Social History Alcohol Use: None Hx Substance Use: No Substance Use Type: Reports: None Hx Tobacco Use: Yes Smoking Status (MU): Current Every Day Smoker Type: Cigarettes Amount Used/How Often: 1/2 pack q day Have You Smoked in the Last Year: Yes Review of Systems Negative: Fever Positive: Other - I think I am having a flare-up from my really rare skin vasculitis," it all feels like on fire where the wounds are. Neurological: Other - weakness, dizziness All Other Systems Reviewed And Are Negative: Yes Physical Exam - Summary Physical Exam Summary: VITAL SIGNS: Reviewed. GENERAL: Patient is a well-developed and morbidly obese female who is lying comfortable in the stretcher. Patient is not in any acute respiratory distress. HEAD AND FACE: No signs of trauma. No ecchymosis, hematomas or skull depressions. No sinus tenderness. EYES: PERRLA, EOMI x 2, No injected conjunctiva, no nystagmus. EARS: Hearing grossly intact. Ear canals and tympanic membranes are within normal limits. MOUTH: Oropharynx within normal limits. NECK: Supple, trachea is midline, no adenopathy, no JVD, no carotid bruit, no c- spine tenderness, neck with full ROM. CHEST: Symmetric, no tenderness at palpation LUNGS: Clear to auscultation bilaterally. No wheezing or crackles. CVS: Regular rate and rhythm, S1 and S2 present, no murmurs or gallops appreciated. ABDOMEN: Soft, non-tender. No signs of distention. No rebound no guarding, and no masses palpated. Bowel sounds are normal. EXTREMITIES: FROM in all major joints, no edema, no cyanosis or clubbing. NEURO: Alert and oriented x 3. No acute neurological deficits. Speech is normal and follows commands. SKIN: Dry and warm. Skin lesions over the lower abdomen. Superficial ulcerations. No inflammatory signs or discharge. Mild tenderness. Triage Information Reviewed: Yes Vital Signs On Initial Exam: Initial Vitals Temp Pulse Resp BP Pulse Ox 97.4 F 81 20 132/84 98 07/20/17 14:55 07/20/17 14:55 07/20/17 14:55 07/20/17 14:55 07/20/17 14:55 Vital Signs Reviewed: Yes Diagnostics - Vital Signs Vital Signs Temp Pulse Resp BP Pulse Ox 07/20/17 14:55 97.4 F 81 20 132/84 98 - Laboratory Lab Statement: Any lab studies that have been ordered have been reviewed, and results considered in the medical decision making process. Complex Multi-Symp Course/Dx Assessment/Plan: In the ED course the patient was given Percocet. Consulted Dr. Maradiaga (store merchandiser) at 1536 regarding the patients case and plan for care. Patient will be discharged with prescription for Percocet and follow up from Dr. Maradiaga and PCP. The patient is agreeable with this plan. - Diagnoses Provider Diagnoses: Cutaneous vasculitis - Physician Notifications Discussed Care Of Patient With: Mike Maradiaga Time Discussed With Above Provider: 15:37 Instructed by Provider To: Other - Consulted Dr. Maradiaga (store merchandiser) at 4806 regarding the patients case and plan for care. Discharge - Discharge Plan Condition: Stable Disposition: HOME Prescriptions: oxyCODONE/Acetamin 5/325 MG* [Percocet 5/325 TAB*] 1 tab PO Q6H PRN #20 tab MDD 4 PRN Reason: Pain Patient Education Materials: Chronic Wound Care (ED), Chronic Wounds (ED) Referrals: Kimberlyn Dhillon MD [Primary Care Provider] - Mike Maradaiga MD [Medical Doctor] - Additional Instructions: RETURN TO THE EMERGENCY DEPARTMENT FOR CHANGING OR WORSENING SYMPTOMS. FOLLOW UP WITH THE WOUND CARE CLINIC. The documentation as recorded by the Vanessa ruelas Alfonso accurately reflects the service I personally performed and the decisions made by Peter bustillos Abdul, MD.
[2017-07-20 16:53] VITALS: BP 106/67
== END 2017-07-20 16:53 | disposition home or self-care (01) ==
LOC: ED 14:48
DX: L95.9 Vasculitis limited to the skin, unspecified (principal); R53.1 Weakness; R42 Dizziness and giddiness; E10.9 Type 1 diabetes mellitus without complications; Z79.4 Long term (current) use of insulin; I20.9 Angina pectoris, unspecified; E78.00 Pure hypercholesterolemia, unspecified; J45.909 Unspecified asthma, uncomplicated; K21.9 Gastro-esophageal reflux disease without esophagitis; K50.90 Crohn's disease, unspecified, without complications; K31.84 Gastroparesis; G43.909 Migraine, unspecified, not intractable, without status migrainosus; F41.0 Panic disorder [episodic paroxysmal anxiety]; F32.9 Major depressive disorder, single episode, unspecified; Z90.49 Acquired absence of other specified parts of digestive tract; Z88.5 Allergy status to narcotic agent; Z88.2 Allergy status to sulfonamides; Z88.8 Allergy status to other drugs, medicaments and biological substances; F17.210 Nicotine dependence, cigarettes, uncomplicated
CPT/HCPCS: 99282; A9270-GY

== ENCOUNTER 2017-08-05 15:23 | Inpatient (IN) | payer MEDICAID, OTHER ==
--- NOTE | 2017-08-05 16:45 | RAD ---
HISTORY: Chest pain COMPARISONS: May 15, 2017 VIEWS: 1: frontal portable view of the chest at 4:33 PM FINDINGS: LINES AND TUBES: None. CARDIOMEDIASTINAL SILHOUETTE: The cardiomediastinal silhouette is normal for portable technique. PLEURA: The costophrenic angles are sharp. No pleural abnormalities are noted. LUNG PARENCHYMA: The lungs are clear. ABDOMEN: The upper abdomen is clear. There is no subphrenic gas. BONES AND SOFT TISSUES: No bone or soft tissue abnormalities are noted. IMPRESSION: NO ACTIVE CARDIOPULMONARY DISEASE.
[2017-08-05 16:53] LABS: Hematocrit 43 % (35-47); Hemoglobin 14.4 g/dl (12.0-16.0); Mean Corpuscular HGB Conc 34 g/dl (31-36); Mean Corpuscular Hemoglobin 29 pg (27-31); Mean Corpuscular Volume 87 fL (80-97); Mean Platelet Volume 7 um3 (7.4-10.4); Red Blood Count 4.95 10^6/ul (4.0-5.4); Red Cell Distribution Width 14 % (10.5-15); White Blood Count 20.6 10^3/ul (3.5-10.8)
--- NOTE | 2017-08-05 17:00 | ED ---
HPI Chest Pain - HPI Summary HPI Summary: 36F presents with chest pain today. She has been having a cough for past couple days. she states it feels like a pressure on the left side of her chest. The pressure does not radiate anywhere. She denies any n/v, diaphoresis , or SOB. She states she started chantix today. She states the chest pain has last a couple hours and is similar to the pain she has had in the past. She had a neg stress test a couple months ago. She denies any acid reflux. She states that her sugars have been high. She has history of leukocytesosis. She does not have a history of high blood pressure. Has cardiac family history but no one with HI under age of 50. no increase swelling in legs. She was given aspirin prior to arrival which did not change in pain. She also states she would like a mental health exam. She does not want to say if suicidal or not. - History of Current Complaint Chief Complaint: EDChestPainROMI Time Seen by Provider: 08/05/17 16:22 Hx Last Menstrual Period: October 07 Pain Intensity: 9 - Additional Pertinent History Primary Care Physician: [id number] - Allergy/Home Medications Allergies/Adverse Reactions: Allergies Allergy/AdvReac Type Severity Reaction Status Date / Time Asenapine Allergy Rash Verified 06/11/17 12:32 Bee Venom Allergy Anaphylatic Verified 06/11/17 12:32 Shock Nalbuphine [From Nubain] Allergy Rash Verified 06/11/17 12:32 Paroxetine [From Paxil] Allergy Vomiting Verified 06/11/17 12:32 Sulfa Antibiotics Allergy Unknown Verified 06/11/17 12:32 Reaction Details Sulfamethoxazole Allergy Unknown Verified 06/11/17 12:32 w/Trimethoprim Reaction [From Bactrim] Details Tramadol Allergy Rash Verified 06/11/17 12:32 zepeda Allergy Nausea And Uncoded 06/11/17 12:32 Vomiting PMH/Surg Hx/FS Hx/Imm Hx Endocrine/Hematology History: Reports: Hx Diabetes - type 1 - ON INSULIN Cardiovascular History: Reports: Hx Angina, Hx Hypercholesterolemia, Other Cardiovascular Problems/Disorders - vasculitis. tachycardia Denies: Hx Coronary Artery Disease, Hx Hypertension - ON BP MEDS FOR TACHY, Hx Myocardial Infarction, Hx Pacemaker/ICD, Hx Peripheral Vascular Disease, Hx Valvular Heart Disease Respiratory History: Reports: Hx Asthma Denies: Hx Chronic Obstructive Pulmonary Disease (COPD) GI History: Reports: Hx Crohn's Disease, Hx Gastroesophageal Reflux Disease, Hx Irritable Bowel, Other GI Disorders - gastroparesis History: Denies: Hx Dialysis, Hx Renal Disease, Other Problems/Disorders Musculoskeletal History: Denies: Hx Arthritis, Hx Osteoporosis Sensory History: Reports: Hx Contacts or Glasses Denies: Hx Legally Blind, Hx Deafness, Hx Hearing Aid Opthamlomology History: Reports: Hx Contacts or Glasses Denies: Hx Legally Blind Neurological History: Reports: Hx Headaches, Hx Migraine Denies: Hx Seizures, Hx Transient Ischemic Attacks (TIA) Psychiatric History: Reports: Hx Anxiety, Hx Depression, Hx Panic Disorder - PTSD, Hx Post Traumatic Stress Disorder, Other Psychiatric Issues/Disorders - Borderline Personality Disorder Denies: Hx Bipolar Disorder - Surgical History Surgery Procedure, Year, and Place: Cholecystectomy;. Cardiac Catherterization- NO STENT; Infectious Disease History: No Infectious Disease History: Reports: Hx of Known/Suspected MRSA - treated. noncarrier now Denies: Traveled Outside the [place] in Last 30 Days - Family History Known Family History: Positive: Cardiac Disease, Diabetes, Other - blood clots ( mother), pacemaker (father) Negative: Hypertension - Social History Alcohol Use: None Hx Substance Use: No Substance Use Type: Reports: None Hx Tobacco Use: Yes Smoking Status (MU): Light Every Day Tobacco Smoker Type: Cigarettes Amount Used/How Often: 1/2 pack q day Have You Smoked in the Last Year: Yes Review of Systems Negative: Fever Positive: Chest Pain Negative: Shortness Of Breath Negative: Abdominal Pain, Vomiting, Nausea All Other Systems Reviewed And Are Negative: Yes Physical Exam Triage Information Reviewed: Yes Vital Signs On Initial Exam: Initial Vitals Temp Pulse Resp BP Pulse Ox 97.1 F 94 16 131/91 99 08/05/17 15:43 08/05/17 15:43 08/05/17 15:43 08/05/17 15:43 08/05/17 15:43 Vital Signs Reviewed: Yes Appearance: Positive: Well-Appearing Skin: Positive: Warm, Dry Head/Face: Positive: Normal Head/Face Inspection Eyes: Positive: Normal, EOMI, RICO, Conjunctiva Clear ENT: Positive: Normal ENT inspection, Pharynx normal, TMs normal Respiratory/Lung Sounds: Positive: Clear to Auscultation, Breath Sounds Present Cardiovascular: Positive: Normal, RRR Abdomen Description: Positive: Nontender, Soft Bowel Sounds: Positive: Present Musculoskeletal: Positive: Normal Neurological: Positive: Normal Psychiatric: Positive: Normal - [place] Coma Scale Coma Scale Total: 15 Diagnostics - Vital Signs Vital Signs Temp Pulse Resp BP Pulse Ox 08/05/17 16:30 75/52 08/05/17 16:26 97 08/05/17 16:00 89 17 120/77 98 08/05/17 15:43 97.1 F 94 16 131/91 99 - Laboratory Result Diagrams: 08/05/17 16:39 08/05/17 16:39 Lab Statement: Any lab studies that have been ordered have been reviewed, and results considered in the medical decision making process. - Radiology chest Xray Interpretation: No Acute Changes Radiology Interpretation Completed By: Radiologist - EKG No standard instances Cardiac Rate: NL EKG Rhythm: Sinus Rhythm ST Segment: Normal EKG Interpretation: normal sinus rhythm EKG Comparison: No Significant Change Chest Pain Course/Dx - Course Course Of Treatment: 36F presents with chest pain today. She has been having a cough for past couple days. she states it feels like a pressure on the left side of her chest. The pressure does not radiate anywhere. She denies any n/v, diaphoresis, or SOB. She states she started chantix today. She states the chest pain has last a couple hours and is similar to the pain she has had in the past. She had a neg stress test a couple months ago. She denies any acid reflux. She states that her sugars have been high. She has history of leukocytesosis. She does not have a history of high blood pressure. Has cardiac family history but no one with HI under age of 50. no increase swelling in legs. She was given aspirin prior to arrival which did not change in pain. She also states she would like a mental health exam. She does not want to say if suicidal or not. normal PE. normal ekg. wbc 20 which is consistent with previous. first troponin .03 and second .01 and third is .01. lactic 2.1 and glucose 415 so gave two liters of fluid and 20 of insulin and glucose is 286. heart score in 2 so unlikely that chest pain is cardiac and already had neg stress a couple months ago. is medically clear for mental health exam. mental health felt that patient should be admitted. - Chest Pain Differential Diagnosis/HQI/PQRI: Angina, Chest Wall, Lower Respiratory Infection , Pulmonary Embolism - Diagnoses Provider Diagnoses: Chest pain, Leukocytosis, Depression, Diabetes mellitus Discharge - Discharge Plan Condition: Stable [place] [facility] [place]errals: Kimberlyn Dhillon MD [Primary Care Provider] -
[2017-08-05 17:08] LABS: ALT 12 U/L (7-52); AST 12 U/L (13-39); Albumin 3.8 g/dL (3.2-5.2); Alkaline Phosphatase 117 U/L (34-104); Anion Gap 10 mmol/L (2-11); BUN/Creatinine Ratio 18.8 (8-20); Blood Urea Nitrogen 13 mg/dL (6-24); CO2 Carbon Dioxide 23 mmol/L (22-32); Calcium 9.6 mg/dL (8.6-10.3); Chloride 99 mmol/L (101-111); EGFR African American 125.3 (>60); EGFR Non-African American 97.4 (>60); Globulin 4.1 g/dL (2-4); Glucose 415 mg/dL (70-100); Potassium 4.1 mmol/L (3.5-5.0); Sodium 132 mmol/L (133-145); Total Protein 7.9 g/dL (6.4-8.9)
[2017-08-05 17:11] LABS: Troponin I 0.03 ng/mL (<0.04)
[2017-08-05] MEDS ORDERED: NS 0.9% 1000 ML* 1,000 ML IV ONE ×3 (17:19→20:33)
[2017-08-05 17:22] LABS: Acetaminophen < 15 mcg/mL; Alcohol < 10 mg/dL (<10); Salicylate < 2.50 mg/dL (<30)
[2017-08-05] MEDS ORDERED: Insulin LISPRO* 1 UNITS UNIT SUBCUT ONE (17:31)
[2017-08-05] MEDS ORDERED: Dextrose 50% Syringe 50 ML* 25 GM/50 ML SYRINGE IV PUSH PRN (17:31)
[2017-08-05] MEDS ORDERED: Nitroglycerin TAB 0.3 MG* 0.3 MG TAB SL ONE (17:32)
[2017-08-05 17:37] LABS: TSH (Thyroid Stimulating Horm) 0.45 mcIU/mL (0.34-5.60)
[2017-08-05 19:09] LABS: Urine Bilirubin Negative (Negative); Urine Glucose 3+(>=500 mg/dL) (Negative); Urine Nitrite Negative (Negative)
[2017-08-05 19:21] LABS: Benzodiazepine Urine Screen None Detected (None Detect)
[2017-08-05 20:15] LABS: Troponin I 0.01 ng/mL (<0.04)
[2017-08-05] MEDS ORDERED: Zolpidem TAB* 10 MG PO ONE (23:49)
[2017-08-05] MEDS ORDERED: Prazosin CAP* 5 MG PO ONE (23:50)
[2017-08-05] MEDS ORDERED: Insulin GLARGINE(*) 1 UNITS UNIT SUBCUT ONE (23:52)
[2017-08-06] MEDS: CMCS: Melatonin (NF) 3 MG TAB PO SCH ×2 (00:49→20:54)
[2017-08-06] MEDS ORDERED: Acetaminophen TAB* 325 MG PO PRN (04:26)
[2017-08-06] MEDS ORDERED: Al Hydrox/Mg Hydrox/Simet LIQ* 30 ML UDC PO PRN (04:26)
[2017-08-06] MEDS ORDERED: Insulin LISPRO* 1 UNITS UNIT SUBCUT ONE (07:45)
[2017-08-06] MEDS: VILAZODONE 10 MG PO SCH ×2 (08:40→21:04)
[2017-08-06] MEDS: Metoprolol Tartrate TAB* 50 mg PO SCH ×2 (09:39→20:54)
[2017-08-06] MEDS: Topiramate TAB(*) 25 MG PO SCH ×2 (09:39→20:55)
[2017-08-06] MEDS: Mycophenolate Mofetil TAB(*) 500 MG PO SCH ×2 (09:39→20:55)
[2017-08-06] MEDS: Vitamin THERAPEUTIC TAB PO SCH (09:39)
[2017-08-06] MEDS ORDERED: Dextrose 50% Syringe 50 ML* 25 GM/50 ML SYRINGE IV PUSH PRN (11:32)
[2017-08-06] MEDS: Insulin LISPRO* 1 UNITS UNIT SUBCUT SCH ×3 (11:43→21:16)
[2017-08-06] MEDS ORDERED: Benzocaine/Menthol LOZ* 1 LOZENGE PO PRN (13:06)
[2017-08-06] MEDS ORDERED: Calcium Carbonate CHEW TAB* 500 MG (TUMS) PO PRN (13:13)
[2017-08-06] MEDS: LORazepam TAB(*) 1 MG PO PRN ×2 (13:39→22:18)
[2017-08-06] MEDS: Ondansetron ODT TAB* 4 MG PO PRN (13:39)
[2017-08-06] MEDS: oxyCODONE/Acetamin 5/325 MG* TAB PO PRN ×2 (13:40→19:37)
[2017-08-06] MEDS ORDERED: Topiramate TAB(*) 25 MG PO SCH (14:00)
[2017-08-06] MEDS: Nystatin TOP POWDER* 15 GM BTL TOPICAL SCH ×2 (14:09→20:56)
[2017-08-06] MEDS: CMCS: Brexpiprazole (NF) 0.5 MG TAB PO SCH (19:05)
[2017-08-06] MEDS: Mometasone 220 MCG MDI INH SCH (19:06)
[2017-08-06] MEDS: Prazosin CAP* 5 MG PO SCH (20:54)
[2017-08-06] MEDS: Atorvastatin* 80 MG TAB PO SCH (20:54)
[2017-08-06] MEDS: Prazosin CAP* 1 MG PO SCH (20:54)
[2017-08-06] MEDS: Gabapentin CAP(*) 300 MG PO SCH (21:00)
[2017-08-06] MEDS ORDERED: INSULIN GLARGINE 70 UNIT SUBCUT SCH (21:00)
[2017-08-06] MEDS: Dicyclomine CAP* 10 MG PO SCH (21:01)
[2017-08-06] MEDS: Insulin GLARGINE(*) 1 UNITS UNIT SUBCUT SCH (21:17)
[2017-08-06] MEDS: Saline NASAL SPRAY 0.65%* BTL BOTH NARES PRN (23:15)
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
--- NOTE | 2017-08-07 01:01 | CONS ---
CC: Dr. Kimberlyn Dhillon * CONSULTATION REPORT: DATE OF ADMISSION: 08/06/17 DATE OF CONSULTATION: 08/06/17 PRIMARY CARE PHYSICIAN: Dr. Kimberlyn Dhillon. ATTENDING PHYSICIAN: Dr. Rafa Dimas (dictated by Amy Bejarano NP). PROVIDER REQUESTING CONSULTATION: Dr. Stoney Sykes. REASON FOR CONSULTATION: Medical assistance in a very medically complexed patient on the behavioral services unit. HISTORY OF PRESENT ILLNESS: Ms. Leigh is a 36-year-old female with past medical history significant for type 2 diabetes mellitus, super morbid obesity, gastroparesis, borderline personality disorder, asthma, depression, anxiety, vasculitis, who presented to the emergency room with complaints of chest pain. The patient reports cough for several days and it felt as though she had pressure on the left side of her chest. The pressure did not radiate anywhere. She denied any nausea, vomiting, diarrhea, shortness of breath. The pain lasted a couple of hours and it was similar to the pain she had in the past. She has had a negative stress test a few months ago. She denied any acid reflux. She reported that her glucose has been recently high and she took her aspirin prior to her arrival to the emergency room. She also asked for mental health evaluation. While in the emergency room, the patient had labs. She had her troponins trended, first being 0.03, the second 0.01, and the third 0.01. She had a lactic acid of 2.1 and glucose of 451. She received 2 L of fluids and insulin for glucose of 286. It was felt that her chest pain was unlikely cardiac in nature and she had a negative stress test a few months ago. She was medically cleared for mental health eval. The patient was seen for mental health eval and it was felt that she should be admitted to behavioral services. The Hospitalists were asked to assist with co- medical management of this medically complexed patient. PAST MEDICAL HISTORY: 1. Type 2 diabetes mellitus. 2. Super morbid obesity. BMI 57.9. 3. Gastroparesis. 4. Borderline personality disorder. 5. Irritable bowel syndrome. 6. PCOS. 7. Rosacea. 8. Thoracic and lumbosacral neuritis. 9. GERD. 10. Hypertension. 11. Hyperlipidemia. 12. Migraine without aura. 13. Asthma. 14. PTSD. 15. Anxiety and depression. 16. Vasculitis limited to skin. 17. Sicca syndrome with keratoconjunctivitis. PAST SURGICAL HISTORY: Status post cholecystectomy. HOME MEDICATIONS: Include: 1. Carafate 1 g oral 4 times daily as needed for indigestion. 2. Nauzene [phone] two to four tablets oral daily as needed for nausea. 3. Nystatin powder topically as needed for yeasty rash. 4. Basaglar KwikPen 70 units subcutaneous twice daily. 5. Chantix 0.5 mg daily for 11 days followed by 1 mg daily for 42 days. 6. Dapsone 25 mg oral daily. 7. Prednisone 2.5 mg oral daily, this is to stop after her dose on 08/22/17. 8. Lactobacillus 1 capsule oral daily. 9. Gabapentin 300 mg oral every morning, 600 mg oral at bedtime. 10. Lispro KwikPen sliding scale for glucose 70 to 90, 12 units; glucose 91 to 103, 14 units; glucose 131 to 150, 16 units; glucose 151 to 200, 18 units; glucose 201 to 250, 20 units subcutaneous before meals. 11. Rexulti 1 mg oral daily at bedtime. 12. Ferrous sulfate 325 mg oral every morning. 13. Ventolin 10 mg oral twice daily. 14. Tums 1500 mg oral daily as needed for acid reflux. 15. Fioricet 1 tablet oral every 8 hours as needed for migraine. 16. Atorvastatin 80 mg oral daily at bedtime. 17. Biotin 10,000 mcg oral every morning. 18. QVAR 80 mcg 2 puffs inhalation twice daily. 19. EpiPen 0.3 mg intramuscular once as needed for allergy symptoms. 20. Vitamin D 2000 units oral every morning. 21. Claritin 10 mg oral every morning. 22. Imodium 2 mg oral twice daily as needed for diarrhea. 23. Multivitamin 1 tablet oral daily. 24. Lorazepam 1 mg oral twice daily as needed for anxiety. 25. Metoprolol tartrate 50 mg oral twice daily. 26. Melatonin 3 mg oral daily for bedtime. 27. Metronidazole 0.75% gel apply topical to rosacea on face daily. 28. CellCept 1500 mg oral twice daily. 29. Naproxen 220 mg oral every 8 hours as needed for pain. 30. Protonix 40 mg oral every morning. 31. Zofran ODT 4 mg oral every 6 hours as needed for nausea. 32. Prazosin 6 mg oral daily at bedtime. 33. Januvia 100 mg oral every morning. 34. Spironolactone 50 mg oral every morning. 35. Vilazodone 20 mg oral twice daily. 36. Topamax 50 mg oral 3 times daily, the patient is taking this twice daily now that it is winter. 37. Ambien 10 mg oral daily at bedtime. 38. Percocet 5/325 mg 1 tablet oral every 6 hours as needed for pain. 39. Benadryl 50 mg oral every 6 hours as needed for allergy symptoms. 40. Albuterol HFA inhaler 2 puffs inhalation every 6 hours as needed for shortness of breath. ALLERGIES: ASENAPINE, BEES, NUBAIN, PAXIL, SULFA, BACTRIM, TRAMADOL, BALTAZAR. FAMILY HISTORY: The patient's mother passed of heart disease at age 64 and her father is living, has a history of diabetes and a pacemaker, and COPD. There is no family history of cancer. SOCIAL HISTORY: The patient smokes 2 to 3 cigarettes daily. She smoked for approximately 6 years. She is working on quitting. She denies alcohol use. She smokes marijuana weekly. REVIEW OF SYSTEMS: I performed a 14-point review of systems. The patient denied any fever or chills. She states that her intermittent chest pain at this time has resolved. She reports recently being diagnosed with a sinus infection and having been on antibiotics and feeling as though she may be getting a sinus infection again. She is supposed to be following up with ENT. She has postnasal drip. She reports intermittent nausea, abdominal discomfort. She reports depression. PHYSICAL EXAMINATION: Vital Signs: Temperature 97.7, heart rate 97, respiratory rate 18, O2 96% on room air, blood pressure 118/73. General Appearance: The patient is a well developed, super morbidly obese young female , who is sitting up on the side of the bed in Mental Health in no acute distress. HEENT: Normocephalic, atraumatic. Pupils are equal and reactive to light. Extraocular movements are intact. The patient's oral mucosa is moist. There is no lymphadenopathy noted. No thyroid enlargement although it is difficult to examine given the thickness of the patient's neck. Cardiovascular : Regular rate and rhythm. S1, S2 are present. Her heart sounds are distant. Respiratory: There is no accessory muscle use. Lungs are clear but diminished to auscultation. Abdomen: Morbidly obese. She has numerous scars on her abdomen including area with a dressing. She is noted to have a large pannus but there is no tenderness to palpation. Extremities: There is no lower extremity edema. DP and PT pulses are 2+ and symmetric. Musculoskeletal : There is no clubbing or cyanosis noted. The patient exhibits good strength in all extremities. Neurologic: The patient is alert and oriented x4. Cranial nerves II through XII are grossly intact. Psychological: The patient is calm and cooperative. Skin: The patient's skin is warm and dry. She has 2 areas with dressings, one to her lower abdomen on the left side and one on her left posterior thigh. DIAGNOSTIC STUDIES/LABORATORY DATA: Sodium 132, potassium 4.1, chloride 99, CO2 23, BUN 13, creatinine 0.69, glucose 415. White blood cell count 20.6, hemoglobin 14.4, hematocrit 43, platelet count 386. Urinalysis shows clear urine and no signs of infection. Troponin 0.03, 0.01, and 0.01. The patient had a lactic acid of 2.1. She had a toxicology positive for barbiturates and cannabis. Chest x-ray shows no active cardiopulmonary disease. She had an EKG showing sinus rhythm and a rate of 86, no acute signs of ischemia. This EKG was similar to previous EKG from 05/15/17. IMPRESSION: Ms. Leigh is a 36-year-old female with past medical history significant for super morbid, type 2 diabetes mellitus, gastroparesis, vasculitis limited to the skin, hyperlipidemia, hypertension, depression, posttraumatic stress disorder, borderline personality syndrome, and polycystic ovarian syndrome, who presented to the emergency room with complaints of chest discomfort and requesting a mental health evaluation. She has been admitted to the behavioral services unit. ASSESSMENT/PLAN: 1. Depression. The patient's management will be per Psychiatry in addition to the patient's anxiety, posttraumatic stress disorder, and bipolar personality, these all will be managed by Psychiatry. 2. Diabetes mellitus with gastroparesis. The patient will be continued on Lantus and lispro sliding scale in addition to her Januvia if available. We will check fingerstick a.c. and h.s. 3. Hypertension. The patient will be continued on her home metoprolol. 4. Hyperlipidemia. The patient will be continued on her home atorvastatin. 5. Gastroesophageal reflux disease. The patient will be continued on her home Protonix in addition to Carafate as needed. 6. Super morbidly obese. BMI is 57.9. 7. Vasculitis limited to the skin. The patient follows with Dr. Maradiaga. She will be continued on her CellCept and prednisone. The prednisone is scheduled to end 08/22/17. I have ordered dressing changes for calcium alginate with silver and Hypafix tape for the left side of her abdomen and left thigh. These should be changed on Mondays and . She will continue to follow with the wound clinic when she is outpatient. 8. Rosacea. Continue taking metronidazole cream for her face. 9. Migraine. Continue on her home Topamax and Fioricet as needed. 10. Asthma. Continue albuterol inhalers as needed. 11. Fluids, electrolytes, and nutrition. The patient should be on a consistent carbohydrate diet. 12. Code status: Full code. 13. DVT prophylactic. The patient has been encouraged to ambulate. 14. Disposition: Inpatient with disposition per Psychiatry. TIME SPENT: Time for this consultation was approximately was 60 minutes, greater than half of that was spent with the patient discussing medications, past medical history, the events leading up to her arrival today, and performing a physical examination. The case has been reviewed with the attending, Dr. Dimas, who agrees with the plan of care. Reviewed by FABI VARGHESE 08/11/17 2013 [id number]/[facility] #: [id number] HOLLIE
[2017-08-07] MEDS: Insulin LISPRO* 1 UNITS UNIT SUBCUT SCH ×4 (08:07→22:27)
[2017-08-07] MEDS: Saline NASAL SPRAY 0.65%* BTL BOTH NARES PRN (08:10)
[2017-08-07] MEDS: BIOTIN 10000 MCG PO SCH (08:14)
[2017-08-07] MEDS: Ferrous Sulfate TAB* 325 MG PO SCH (08:14)
[2017-08-07] MEDS: Metoprolol Tartrate TAB* 50 mg PO SCH ×2 (08:14→22:03)
[2017-08-07] MEDS: Topiramate TAB(*) 25 MG PO SCH ×2 (08:15→22:04)
[2017-08-07] MEDS: Cetirizine* 10 MG TAB PO SCH (08:15)
[2017-08-07] MEDS: Vitamin THERAPEUTIC TAB PO SCH (08:15)
[2017-08-07] MEDS: Gabapentin CAP(*) 300 MG PO SCH ×2 (08:16→22:05)
[2017-08-07] MEDS: Cholecalciferol TAB* 1000 UNITS PO SCH (08:17)
[2017-08-07] MEDS: Spironolactone TAB* 25 MG PO SCH (08:17)
[2017-08-07] MEDS: Dicyclomine CAP* 10 MG PO SCH ×2 (08:18→22:03)
[2017-08-07] MEDS: Nystatin TOP POWDER* 15 GM BTL TOPICAL SCH ×4 (08:19→22:45)
[2017-08-07] MEDS: CMC:SitaGLIPtin (NF) 100 MG TAB PO SCH ×2 (08:19→14:09)
[2017-08-07] MEDS: Mycophenolate Mofetil TAB(*) 500 MG PO SCH ×2 (08:19→22:04)
[2017-08-07] MEDS: METRONIDAZOLE TOPICAL SCH (08:19)
[2017-08-07] MEDS: predniSONE TAB* 5 MG PO SCH (08:20)
[2017-08-07] MEDS: VILAZODONE 10 MG PO SCH ×2 (08:21→22:07)
[2017-08-07] MEDS: Insulin GLARGINE(*) 1 UNITS UNIT SUBCUT SCH ×2 (08:32→22:27)
[2017-08-07] MEDS: Dapsone TAB* 100 MG PO SCH (08:54)
[2017-08-07] MEDS: CMC Pantoprazole TAB (NF) 40 MG TAB PO SCH (08:55)
[2017-08-07 10:35] LABS: Hematocrit 39 % (35-47); Hemoglobin 12.7 g/dl (12.0-16.0); Mean Corpuscular HGB Conc 33 g/dl (31-36); Mean Corpuscular Hemoglobin 29 pg (27-31); Mean Corpuscular Volume 87 fL (80-97); Mean Platelet Volume 6 um3 (7.4-10.4); Red Blood Count 4.43 10^6/ul (4.0-5.4); Red Cell Distribution Width 13 % (10.5-15); White Blood Count 14.9 10^3/ul (3.5-10.8)
[2017-08-07 10:48] LABS: BUN/Creatinine Ratio 13.6 (8-20); Calcium 9.2 mg/dL (8.6-10.3); EGFR African American 150.1 (>60); EGFR Non-African American 116.7 (>60); Potassium 3.7 mmol/L (3.5-5.0)
[2017-08-07] MEDS: oxyCODONE/Acetamin 5/325 MG* TAB PO PRN ×2 (11:57→19:10)
--- NOTE | 2017-08-07 14:27 | PN ---
Subjective - Subjective Date of Service: 08/07/17 Service Type: 81941 Hosp care 15 min low complexity Subjective: Jayy is seen for weekend coverage. She is laying sideways on her bed having a 1:1 interaction with the charge nurse. She was just seen by the hospitalist service secondary to elevated lactic acid levels and diabetic management. She is calm and cooperative with treatment, going to groups and being visible on the unit. On exam she is needy and expressive, talking about her experience of "flashbacks and dissociations" related to past trauma. She denies SI and feels that she would be safe using the comfort room and going out on staff pass. Objective - Appearance Appearance: Obese Dysmorphic Features: No Hygiene: Normal Grooming: Fairly Well Kept - Behavior Psychomotor Activities: Normal Exhibits Abnormal Movement: No - Attitude and Relatedness Attitude and Relatedness: Cooperative Eye Contact: Fair - Speech Quality: Unpressured Latencies: Normal Quantity: Appropriate - Mood Patient's Decription of Mood: "Anxious" - Affect Observed Affect: Fair Affect Consistent with: Euthymia - Thought Process Patient's Thought Process: Coherent Thought Content: No Passive Wish, No Suicidal Planning, No Homicidal Ideation, No Paranoid Ideation - Sensorium Experiencing Hallucinations: No, Sensorium is Clear Type of Hallucinations: Visual: No, Auditory: No, Command: No - Level of Consciousness Level of Consciousness: Alert Orientation: Yes Intact, Yes Orientated to Time, Yes Orientated to Place, Yes Orientated to Person - Impulse Control Impulse Control: Tenuous - Insight and Judgement Insight and Judgement: Fair - Group Participation Particating in Group Activities: Yes - Medication Management Medication Management Adherence: Yes Assessment - Assessment Merits Inpatient Hospitalization: For Immediate Safety, For Stabilization Inpatient DSM-IV Dx: PTSD Clinical Impression: 36 y.o. single, obese, AA female recently moved from the [facility], with a documented history of PTSD and borderline PD and multiple medical comorbidities presents with SI. Plan - Plan Treatment Plan: Name: JAYY CANTU Birthdate: 1980 [id number] Patient receiving outpatient psychiatric medication regimen, including vilazodone, topiramate, gabapentin, prazosin and brexpiprazole. Appreciate Hospitalist input on medical comorbidities. Continue inpatient level care. Continued Medication Management: Continue Outpt Medication Medications: Current Medications Acetaminophen (Tylenol Tab*) 650 mg PO Q4H PRN PRN Reason: PAIN or TEMP > 101 F Acetaminophen/Butalbital/Caffeine (Fioricet Tab*) 1 tab PO Q8H PRN PRN Reason: HEADACHE Al Hydrox/Mg Hydrox/Simethicone (Maalox Plus*) 30 ml PO Q4H PRN PRN Reason: INDIGESTION Albuterol (Ventolin Hfa Inhaler*) 2 puff INH Q6H PRN PRN Reason: SOB/WHEEZING Atorvastatin Calcium (Lipitor*) 80 mg PO 2100 [facility] Last Admin: 08/06/17 20:54 Dose: 80 mg Brexpiprazole (Rexulti 0.5 Mg Tab (Nf)) 1 mg PO QPM [facility] Last Admin: 08/06/17 19:05 Dose: 1 mg Calcium Carbonate (Tums*) 1,500 mg PO DAILY PRN PRN Reason: GERD Cetirizine HCl (Zyrtec*) 10 mg PO QAM [facility] Last Admin: 08/07/17 08:15 Dose: 10 mg Cholecalciferol (Vitamin D Tab*) 2,000 units PO QAM [facility] Last Admin: 08/07/17 08:17 Dose: 2,000 units Dapsone (Dapsone Tab*) 25 mg PO DAILY [facility] Last Admin: 08/07/17 08:54 Dose: 25 mg Dextrose (D50w Syringe 50 Ml*) 12.5 gm IV PUSH .FOR FS < 60 - SS PRN PRN Reason: FS < 60 Dicyclomine HCl (Bentyl Cap*) 10 mg PO BID [facility] Last Admin: 08/07/17 08:18 Dose: 10 mg Ferrous Sulfate (Ferrous Sulfate Tab*) 325 mg PO QAM [facility] Last Admin: 08/07/17 08:14 Dose: 325 mg Gabapentin (Neurontin Cap(*)) 600 mg PO BEDTIME [facility] Last Admin: 08/06/17 21:00 Dose: 600 mg Gabapentin (Neurontin Cap(*)) 300 mg PO QAM [facility] Last Admin: 08/07/17 08:16 Dose: 300 mg Insulin Glargine (Lantus(*)) 70 units SUBCUT Q12H [facility] Last Admin: 08/07/17 08:32 Dose: 70 units Insulin Human Lispro (Humalog*) 0 units SUBCUT ACHS [facility] PRN Reason: Protocol Last Admin: 08/07/17 11:49 Dose: 15 units Lorazepam (Ativan Tab(*)) 1 mg PO BID PRN PRN Reason: ANXIETY Last Admin: 08/06/17 22:18 Dose: 1 mg Melatonin (Melatonin (Nf)) 3 mg PO BEDTIME [facility] Last Admin: 08/06/17 20:54 Dose: 3 mg Metoprolol Tartrate (Lopressor Tab*) 50 mg PO BID [facility] Last Admin: 08/07/17 08:14 Dose: 50 mg Metronidazole (Metrocream (Nf)) 1 applic TOPICAL DAILY [facility] Last Admin: 08/07/17 08:19 Dose: Not Given Mometasone Furoate (Asmanex 220 Mcg Mdi *) 1 puff INH QPM [facility] Last Admin: 08/06/17 19:06 Dose: 1 puff Multivitamins (Theragran Tab*) 1 tab PO DAILY [facility] Last Admin: 08/07/17 08:15 Dose: 1 tab Mycophenolate Mofetil (Cellcept Tab(*)) 1,500 mg PO BID [facility] Last Admin: 08/07/17 08:19 Dose: 1,500 mg (Biotin [Biotin Maximum Strength] 10 ,000 Mcg) 10,000 mcg PO QAM [facility] Last Admin: 08/07/17 08:14 Dose: Not Given Nystatin (Nystatin Top Powder*) 1 applic TOPICAL TID [facility] Last Admin: 08/07/17 14:00 Dose: Not Given Ondansetron HCl (Zofran Odt Tab*) 4 mg PO Q6H PRN PRN Reason: NAUSEA Last Admin: 08/06/17 13:39 Dose: 4 mg Oxycodone/Acetaminophen (Percocet 5/325 Tab*) 1 tab PO Q6H PRN PRN Reason: PAIN Last Admin: 08/07/17 11:57 Dose: 1 tab Pantoprazole Sodium (Protonix Tab (Nf)) 40 mg PO 0730 [facility] Last Admin: 08/07/17 08:55 Dose: 40 mg Prazosin HCl (Minipress Cap*) 1 mg PO BEDTIME [facility] Last Admin: 08/06/17 20:54 Dose: 1 mg Prazosin HCl (Minipress Cap*) 5 mg PO BEDTIME [facility] Last Admin: 08/06/17 20:54 Dose: 5 mg Prednisone (Deltasone Tab*) 2.5 mg PO QAM [facility] Stop: 08/22/17 10:00 Last Admin: 08/07/17 08:20 Dose: 2.5 mg Sitagliptin Phosphate (Januvia (Nf)) [facility] [place] Reason: Protocol Last Admin: 08/07/17 14:09 Dose: 100 mg Sodium Chloride (Sodium Chloride 0.65% Nasal Hulett*) 1 spray BOTH NARES Q4H PRN PRN Reason: CONGESTION Last Admin: 08/07/17 08:10 Dose: 1 spray Spironolactone (Aldactone Tab*) [facility] [place] Last Admin: 08/07/17 08:17 Dose: 50 mg Throat Lozenges (Chloraseptic Garry*) 1 garry PO Q6H PRN PRN Reason: SORE THROAT Topiramate (Topamax(*)) 50 mg PO BID [facility] Last Admin: 08/07/17 08:15 Dose: 50 mg Vilazodone HCl (Viibryd (Nf)) 20 mg PO BID [facility] Last Admin: 08/07/17 08:21 Dose: 20 mg - Discharge Plan Discharge Plan: Inpatient Hospitalization Lab Results - Lab Results Lab Results: 08/06/17 08/06/17 08/06/17 07:33 09:47 11:22 WBC RBC Hgb Hct MCV MCH MCHC RDW Plt Count MPV Neut % (Auto) Lymph % (Auto) [place] % (Auto) Eos % (Auto) Baso % (Auto) Absolute Neuts (auto) Absolute Lymphs (auto) Absolute Monos (auto) Absolute Eos (auto) Absolute Basos (auto) Absolute Nucleated RBC Nucleated RBC % Sodium Potassium Chloride Carbon Dioxide Anion Gap BUN Creatinine Est GFR ( Amer) Est GFR (Non-Af Amer) BUN/Creatinine Ratio Glucose POC Glucose (mg/dL) 311 H 221 H 241 H Lactic Acid Calcium 08/06/17 08/06/17 08/07/17 16:42 20:09 07:44 WBC RBC Hgb Hct MCV MCH MCHC RDW Plt Count MPV Neut % (Auto) Lymph % (Auto) [place] % (Auto) Eos % (Auto) Baso % (Auto) Absolute Neuts (auto) Absolute Lymphs (auto) Absolute Monos (auto) Absolute Eos (auto) Absolute Basos (auto) Absolute Nucleated RBC Nucleated RBC % Sodium Potassium Chloride Carbon Dioxide Anion Gap BUN Creatinine Est GFR ( Amer) Est GFR (Non-Af Amer) BUN/Creatinine Ratio Glucose POC Glucose (mg/dL) 345 H 337 H 287 H Lactic Acid Calcium 08/07/17 08/07/17 08/07/17 10:25 10:25 10:25 WBC 14.9 H RBC 4.43 Hgb 12.7 Hct 39 MCV 87 MCH 29 MCHC 33 RDW 13 Plt Count 362 MPV 6 L Neut % (Auto) 70.9 Lymph % (Auto) 21.1 L [place] % (Auto) 6.7 Eos % (Auto) 0.8 Baso % (Auto) 0.5 Absolute Neuts (auto) 10.5 H Absolute Lymphs (auto) 3.1 Absolute Monos (auto) 1.0 H Absolute Eos (auto) 0.1 Absolute Basos (auto) 0.1 Absolute Nucleated RBC 0.01 Nucleated RBC % 0 Sodium 130 L Potassium 3.7 Chloride 104 Carbon Dioxide 19 L Anion Gap 7 BUN 8 Creatinine 0.59 Est GFR ( Amer) 150.1 Est GFR (Non-Af Amer) 116.7 BUN/Creatinine Ratio 13.6 Glucose 372 H POC Glucose (mg/dL) Lactic Acid 3.4 H* Calcium 9.2 08/07/17 11:32 WBC RBC Hgb Hct MCV MCH MCHC RDW Plt Count MPV Neut % (Auto) Lymph % (Auto) [place] % (Auto) Eos % (Auto) Baso % (Auto) Absolute Neuts (auto) Absolute Lymphs (auto) Absolute Monos (auto) Absolute Eos (auto) Absolute Basos (auto) Absolute Nucleated RBC Nucleated RBC % Sodium Potassium Chloride Carbon Dioxide Anion Gap BUN Creatinine Est GFR ( Amer) Est GFR (Non-Af Amer) BUN/Creatinine Ratio Glucose POC Glucose (mg/dL) 354 H Lactic Acid Calcium
[2017-08-07] MEDS: Mometasone 220 MCG MDI INH SCH (17:58)
[2017-08-07] MEDS: CMCS: Brexpiprazole (NF) 0.5 MG TAB PO SCH (17:58)
--- NOTE | 2017-08-07 18:48 | PN ---
Subjective Date of Service: 08/07/17 Interval History: Interviewed and examined patient at bedside; Discussed case with BSU RN ; Reviewed previous notes and lab data Called when patient's lactic acid was elevated at 3, up from 2.1 I saw her and she was without specific complaint. Vital signs are unremarkable. She did report a total of 3 loose stools and some mild LLQ abd aching that I could not reproduce on deep palpation at the bedside. - does have h/o IBS - also has h/o of vasculitis and is on chronic immunosuppression with prednisone and cellcept. I am told that her phlebotomy was difficult and that there might have been a prolonged tourniquet application. Alternatively, I do note a mildly depressed serum bicarbonate, so could she have mild DKA given her elevated blood sugars?? [Abdominal pain can be associated with DKA...] Ample Lantus PLUS - units today pursuant to humalog sliding scale. encouraged fluid intake (she tells me she can drink ample gatorade if we provide it) and repeat phlebotomy later today (estimate 6 PM) given how stable she appeared clinically. If labs abnormal--> will re-evaluate and create new plan. Overall, I am underwhelmed by her appearance and I will watch closely in conjunction with the unit nursing staff and quickly admit to medicine if a specific treatment need presents. Family History: Unchanged from Admission Social History: Unchanged from Admission Past Medical History: Unchanged from Admission Objective Active Medications: . Acetaminophen (Tylenol Tab*) 650 mg PO Q4H PRN PRN Reason: PAIN or TEMP > 101 F Last Admin: 08/07/17 17:02 Dose: 650 mg Acetaminophen/Butalbital/Caffeine (Fioricet Tab*) 1 tab PO Q8H PRN PRN Reason: HEADACHE Al Hydrox/Mg Hydrox/Simethicone (Maalox Plus*) 30 ml PO Q4H PRN PRN Reason: INDIGESTION Albuterol (Ventolin Hfa Inhaler*) 2 puff INH Q6H PRN PRN Reason: SOB/WHEEZING Atorvastatin Calcium (Lipitor*) 80 mg PO 2100 [facility] Last Admin: 08/06/17 20:54 Dose: 80 mg Brexpiprazole (Rexulti 0.5 Mg Tab (Nf)) 1 mg PO QPM [facility] Last Admin: 08/07/17 17:58 Dose: 1 mg Calcium Carbonate (Tums*) 1,500 mg PO DAILY PRN PRN Reason: GERD Cetirizine HCl (Zyrtec*) 10 mg PO QAM [facility] Last Admin: 08/07/17 08:15 Dose: 10 mg Cholecalciferol (Vitamin D Tab*) 2,000 units PO QAM [facility] Last Admin: 08/07/17 08:17 Dose: 2,000 units Dapsone (Dapsone Tab*) 25 mg PO DAILY [facility] Last Admin: 08/07/17 08:54 Dose: 25 mg Dextrose (D50w Syringe 50 Ml*) 12.5 gm IV PUSH .FOR FS < 60 - SS PRN PRN Reason: FS < 60 Dicyclomine HCl (Bentyl Cap*) 10 mg PO BID [facility] Last Admin: 08/07/17 08:18 Dose: 10 mg Ferrous Sulfate (Ferrous Sulfate Tab*) 325 mg PO QAM [facility] Last Admin: 08/07/17 08:14 Dose: 325 mg Gabapentin (Neurontin Cap(*)) 600 mg PO BEDTIME [facility] Last Admin: 08/06/17 21:00 Dose: 600 mg Gabapentin (Neurontin Cap(*)) 300 mg PO QAM [facility] Last Admin: 08/07/17 08:16 Dose: 300 mg Insulin Glargine (Lantus(*)) 70 units SUBCUT Q12H [facility] Last Admin: 08/07/17 08:32 Dose: 70 units Insulin Human Lispro (Humalog*) 0 units SUBCUT ACHS [facility] PRN Reason: Protocol Last Admin: 08/07/17 17:02 Dose: 9 units Lorazepam (Ativan Tab(*)) 1 mg PO BID PRN PRN Reason: ANXIETY Last Admin: 08/06/17 22:18 Dose: 1 mg Melatonin (Melatonin (Nf)) 3 mg PO BEDTIME [facility] Last Admin: 08/06/17 20:54 Dose: 3 mg Metoprolol Tartrate (Lopressor Tab*) 50 mg PO BID [facility] Last Admin: 08/07/17 08:14 Dose: 50 mg Metronidazole (Metrocream (Nf)) 1 applic TOPICAL DAILY [facility] Last Admin: 08/07/17 08:19 Dose: Not Given Mometasone Furoate (Asmanex 220 Mcg Mdi *) 1 puff INH QPM [facility] Last Admin: 08/07/17 17:58 Dose: 1 puff Multivitamins (Theragran Tab*) 1 tab PO DAILY [facility] Last Admin: 08/07/17 08:15 Dose: 1 tab Mycophenolate Mofetil (Cellcept Tab(*)) 1,500 mg PO BID [facility] Last Admin: 08/07/17 08:19 Dose: 1,500 mg (Biotin [Biotin Maximum Strength] 10 ,000 Mcg) 10,000 mcg PO QAM [facility] Last Admin: 08/07/17 08:14 Dose: Not Given Nystatin (Nystatin Top Powder*) 1 applic TOPICAL TID [facility] Last Admin: 08/07/17 14:00 Dose: Not Given Ondansetron HCl (Zofran Odt Tab*) 4 mg PO Q6H PRN PRN Reason: NAUSEA Last Admin: 08/06/17 13:39 Dose: 4 mg Oxycodone/Acetaminophen (Percocet 5/325 Tab*) 1 tab PO Q6H PRN PRN Reason: PAIN Last Admin: 08/07/17 11:57 Dose: 1 tab Pantoprazole Sodium (Protonix Tab (Nf)) 40 mg PO 0730 [facility] Last Admin: 08/07/17 08:55 Dose: 40 mg Prazosin HCl (Minipress Cap*) 1 mg PO BEDTIME [facility] Last Admin: 08/06/17 20:54 Dose: 1 mg Prazosin HCl (Minipress Cap*) 5 mg PO BEDTIME [facility] Last Admin: 08/06/17 20:54 Dose: 5 mg Prednisone (Deltasone Tab*) [facility] Stop: 08/22/17 10:00 Last Admin: 08/07/17 08:20 Dose: 2.5 mg Sitagliptin Phosphate (Januvia (Nf)) [facility] [place] PRN Reason: Protocol Last Admin: 08/07/17 14:09 Dose: 100 mg Sodium Chloride (Sodium Chloride 0.65% Nasal [place]*) 1 spray BOTH NARES Q4H PRN PRN Reason: CONGESTION Last Admin: 08/07/17 08:10 Dose: 1 spray Spironolactone (Aldactone Tab*) [facility] Last Admin: 08/07/17 08:17 Dose: 50 mg Throat Lozenges (Chloraseptic Magen*) 1 magen PO Q6H PRN PRN Reason: SORE THROAT Topiramate (Topamax(*)) 50 mg PO BID [facility] Last Admin: 08/07/17 08:15 Dose: 50 mg Vilazodone HCl (Viibryd (Nf)) 20 mg PO BID [facility] Last Admin: 08/07/17 08:21 Dose: 20 mg . Vital Signs - 8 hr 08/07/17 08/07/17 11:57 14:13 Respiratory 16 16 Rate Oxygen Devices in Use Now: None Appearance: obese, young woman -- no apparent distress to my observation. Eyes: No Scleral Icterus Ears/Nose/Mouth/Throat: Clear Oropharnyx Respiratory: Symmetrical Chest Expansion and Respiratory Effort Cardiovascular: NL Sounds; No Murmurs; No JVD Abdominal: - - morbidly obese Extremities: No Edema Skin: No Rash or Ulcers Neurological: Alert and Oriented x 3 Lines/Tubes/Other Access: Clean, Dry and Intact Peripheral IV Nutrition: Taking PO's Result Diagrams: 08/07/17 21:45 08/07/17 21:45 Assess/Plan/Problems-Billing . Assessment: 36 yo woman with unclear somatic complaints including chest and abd pain, and selected lab abnormalities, though now reassuring physical exam. - Patient Problems (1) Type II diabetes mellitus Current Visit: Yes Status: Chronic Priority: High (2) Hyperglycemia due to type 2 diabetes mellitus Current Visit: Yes Status: Acute Priority: High Code(s): E11.65 - TYPE 2 DIABETES MELLITUS WITH HYPERGLYCEMIA Comment: - sugars difficult to control - perhaps mild DKA given low bicarb and hyperglycemia and low level lactic acid... - aggressively hydrate (PO) and ample SQ insulin. (3) Elevated lactic acid level Current Visit: No Status: Acute Code(s): E87.2 - ACIDOSIS Comment: - Unlikely to be sepsis - No source of infection, afebrile (could have been touriquet issue) - Likely due to poor perfusion due to hyperglycemia, loose stools and body habitus - Continue oral hydration
[2017-08-07] MEDS: LORazepam TAB(*) 1 MG PO PRN (19:10)
[2017-08-07 21:53] LABS: Hematocrit 40 % (35-47); Mean Corpuscular HGB Conc 33 g/dl (31-36); Mean Corpuscular Hemoglobin 29 pg (27-31); Mean Corpuscular Volume 88 fL (80-97); Mean Platelet Volume 6 um3 (7.4-10.4); Red Blood Count 4.58 10^6/ul (4.0-5.4); Red Cell Distribution Width 14 % (10.5-15); White Blood Count 19.7 10^3/ul (3.5-10.8)
[2017-08-07] MEDS: CMCS: Melatonin (NF) 3 MG TAB PO SCH (22:03)
[2017-08-07] MEDS: Prazosin CAP* 5 MG PO SCH (22:03)
[2017-08-07] MEDS: Atorvastatin* 80 MG TAB PO SCH (22:05)
[2017-08-07] MEDS: Prazosin CAP* 1 MG PO SCH (22:05)
[2017-08-07 22:06] LABS: BUN/Creatinine Ratio 14.8 (8-20); Calcium 9.4 mg/dL (8.6-10.3); EGFR African American 144.4 (>60); EGFR Non-African American 112.3 (>60); Potassium 3.9 mmol/L (3.5-5.0)
[2017-08-08] MEDS: Insulin LISPRO* 1 UNITS UNIT SUBCUT SCH ×4 (08:38→20:59)
[2017-08-08] MEDS: Gabapentin CAP(*) 300 MG PO SCH ×2 (08:39→20:54)
[2017-08-08] MEDS: Cetirizine* 10 MG TAB PO SCH (08:39)
[2017-08-08] MEDS: Vitamin THERAPEUTIC TAB PO SCH (08:40)
[2017-08-08] MEDS: Ferrous Sulfate TAB* 325 MG PO SCH (08:41)
[2017-08-08] MEDS: CMC:SitaGLIPtin (NF) 100 MG TAB PO SCH (08:41)
[2017-08-08] MEDS: CMC Pantoprazole TAB (NF) 40 MG TAB PO SCH (08:41)
[2017-08-08] MEDS: Mycophenolate Mofetil TAB(*) 500 MG PO SCH ×2 (08:42→20:51)
[2017-08-08] MEDS: Dapsone TAB* 100 MG PO SCH (08:42)
[2017-08-08] MEDS: Metoprolol Tartrate TAB* 50 mg PO SCH ×2 (08:42→20:51)
[2017-08-08] MEDS: Insulin GLARGINE(*) 1 UNITS UNIT SUBCUT SCH ×2 (08:43→20:57)
[2017-08-08] MEDS: Topiramate TAB(*) 25 MG PO SCH ×2 (08:43→20:52)
[2017-08-08] MEDS: Cholecalciferol TAB* 1000 UNITS PO SCH (08:43)
[2017-08-08] MEDS: Spironolactone TAB* 25 MG PO SCH (08:43)
[2017-08-08] MEDS: oxyCODONE/Acetamin 5/325 MG* TAB PO PRN ×3 (08:44→22:42)
[2017-08-08] MEDS: Dicyclomine CAP* 10 MG PO SCH ×2 (08:45→20:53)
[2017-08-08] MEDS: VILAZODONE 10 MG PO SCH ×2 (08:47→20:50)
[2017-08-08] MEDS: BIOTIN 10000 MCG PO SCH (08:56)
[2017-08-08] MEDS: METRONIDAZOLE TOPICAL SCH (08:56)
[2017-08-08] MEDS ORDERED: Insulin LISPRO* 1 UNITS UNIT SUBCUT ONE (09:00)
[2017-08-08] MEDS: predniSONE TAB* 5 MG PO SCH (09:02)
[2017-08-08] MEDS: Nystatin TOP POWDER* 15 GM BTL TOPICAL SCH ×3 (09:58→21:07)
--- NOTE | 2017-08-08 16:36 | PN ---
Subjective Date of Service: 08/08/17 Interval History: . saw patient this AM no new c/o labs much improved adjusted sliding scale according to Dr. tomlinson's outpatient notes --> usually gets much higher doses. patient without chest or abd pain... will follow distantly in subsequent days. Cleared for dc on current medicine regimen -- no changes are intended if she is cleared for dc by psychiatry team. . Family History: Unchanged from Admission Social History: Unchanged from Admission Past Medical History: Unchanged from Admission Objective Active Medications: Acetaminophen (Tylenol Tab*) 650 mg PO Q4H PRN PRN Reason: PAIN or TEMP > 101 F Last Admin: 08/07/17 17:02 Dose: 650 mg Acetaminophen/Butalbital/Caffeine (Fioricet Tab*) 1 tab PO Q8H PRN PRN Reason: HEADACHE Al Hydrox/Mg Hydrox/Simethicone (Maalox Plus*) 30 ml PO Q4H PRN PRN Reason: INDIGESTION Albuterol (Ventolin Hfa Inhaler*) 2 puff INH Q6H PRN PRN Reason: SOB/WHEEZING Atorvastatin Calcium (Lipitor*) 80 mg PO 2100 [facility] Last Admin: 08/07/17 22:05 Dose: 80 mg Brexpiprazole (Rexulti 0.5 Mg Tab (Nf)) 1 mg PO QPM [facility] Last Admin: 08/07/17 17:58 Dose: 1 mg Calcium Carbonate (Tums*) 1,500 mg PO DAILY PRN PRN Reason: GERD Cetirizine HCl (Zyrtec*) 10 mg PO QAM [facility] Last Admin: 08/08/17 08:39 Dose: 10 mg Cholecalciferol (Vitamin D Tab*) 2,000 units PO QAM [facility] Last Admin: 08/08/17 08:43 Dose: 2,000 units Dapsone (Dapsone Tab*) 25 mg PO DAILY [facility] Last Admin: 08/08/17 08:42 Dose: 25 mg Dextrose (D50w Syringe 50 Ml*) 12.5 gm IV PUSH .FOR FS < 60 - SS PRN PRN Reason: FS < 60 Dicyclomine HCl (Bentyl Cap*) 10 mg PO BID [facility] Last Admin: 08/08/17 08:45 Dose: 10 mg Ferrous Sulfate (Ferrous Sulfate Tab*) 325 mg PO QAM [facility] Last Admin: 08/08/17 08:41 Dose: 325 mg Gabapentin (Neurontin Cap(*)) 600 mg PO BEDTIME [facility] Last Admin: 08/07/17 22:05 Dose: 600 mg Gabapentin (Neurontin Cap(*)) 300 mg PO QAM [facility] Last Admin: 08/08/17 08:39 Dose: 300 mg Insulin Glargine (Lantus(*)) 70 units SUBCUT Q12H [facility] Last Admin: 08/08/17 08:43 Dose: 70 units Insulin Human Lispro (Humalog*) 0 units SUBCUT ACHS [facility] PRN Reason: Protocol Last Admin: 08/08/17 12:18 Dose: 20 units Lorazepam (Ativan Tab(*)) 1 mg PO BID PRN PRN Reason: ANXIETY Last Admin: 08/07/17 19:10 Dose: 1 mg Melatonin (Melatonin (Nf)) 3 mg PO BEDTIME [facility] Last Admin: 08/07/17 22:03 Dose: 3 mg Metoprolol Tartrate (Lopressor Tab*) 50 mg PO BID [facility] Last Admin: 08/08/17 08:42 Dose: 50 mg Metronidazole (Metrocream (Nf)) 1 applic TOPICAL DAILY [facility] Last Admin: 08/08/17 08:56 Dose: Not Given Mometasone Furoate (Asmanex 220 Mcg Mdi *) 1 puff INH QPM [facility] Last Admin: 08/07/17 17:58 Dose: 1 puff Multivitamins (Theragran Tab*) 1 tab PO DAILY [facility] Last Admin: 08/08/17 08:40 Dose: 1 tab Mycophenolate Mofetil (Cellcept Tab(*)) 1,500 mg PO BID [facility] Last Admin: 08/08/17 08:42 Dose: 1,500 mg (Biotin [Biotin Maximum Strength] 10 ,000 Mcg) 10,000 mcg PO QAM [facility] Last Admin: 08/08/17 08:56 Dose: Not Given Nystatin (Nystatin Top Powder*) 1 applic TOPICAL TID [facility] Last Admin: 08/08/17 13:14 Dose: 1 applic Ondansetron HCl (Zofran Odt Tab*) 4 mg PO Q6H PRN PRN Reason: NAUSEA Last Admin: 08/06/17 13:39 Dose: 4 mg Oxycodone/Acetaminophen (Percocet 5/325 Tab*) 1 tab PO Q6H PRN PRN Reason: PAIN Last Admin: 08/08/17 16:27 Dose: 1 tab Pantoprazole Sodium (Protonix Tab (Nf)) 40 mg PO 0730 [facility] Last Admin: 08/08/17 08:41 Dose: 40 mg Prazosin HCl (Minipress Cap*) 1 mg PO BEDTIME [facility] Last Admin: 08/07/17 22:05 Dose: 1 mg Prazosin HCl (Minipress Cap*) 5 mg PO BEDTIME [facility] Last Admin: 08/07/17 22:03 Dose: 5 mg Prednisone (Deltasone Tab*) 2.5 mg PO QAM [facility] Stop: 08/22/17 10:00 Last Admin: 08/08/17 09:02 Dose: 2.5 mg Sitagliptin Phosphate (Januvia (Nf)) [facility] PRN Reason: Protocol Last Admin: 08/08/17 08:41 Dose: 100 mg Sodium Chloride (Sodium Chloride 0.65% Nasal [place]*) 1 spray BOTH NARES Q4H PRN PRN Reason: CONGESTION Last Admin: 08/07/17 08:10 Dose: 1 spray Spironolactone (Aldactone Tab*) 50 mg PO QAM [facility] Last Admin: 08/08/17 08:43 Dose: 50 mg Throat Lozenges (Chloraseptic Magen*) 1 magen PO Q6H PRN PRN Reason: SORE THROAT Topiramate (Topamax(*)) 50 mg PO BID [facility] Last Admin: 08/08/17 08:43 Dose: 50 mg Vilazodone HCl (Viibryd (Nf)) 20 mg PO BID [facility] Last Admin: 08/08/17 08:47 Dose: 20 mg Vital Signs - 8 hr 08/08/17 08/08/17 08/08/17 08:39 08:44 08:45 Respiratory 16 Rate 08/08/17 08/08/17 08/08/17 10:45 10:46 10:47 Respiratory 17 Rate 08/08/17 08/08/17 08/08/17 12:23 14:23 16:27 Respiratory 17 16 16 Rate Oxygen Devices in Use Now: None Appearance: NAD Eyes: No Scleral Icterus Ears/Nose/Mouth/Throat: NL Teeth, Lips, Gums, Clear Oropharnyx Neck: NL Appearance and Movements; NL JVP Respiratory: Symmetrical Chest Expansion and Respiratory Effort Cardiovascular: NL Sounds; No Murmurs; No JVD Abdominal: - - obese, nontender Lymphatic: No Cervical Adenopathy Skin: No Rash or Ulcers Neurological: Alert and Oriented x 3 Lines/Tubes/Other Access: Clean, Dry and Intact Peripheral IV Nutrition: Taking PO's Result Diagrams: 08/07/17 21:45 08/07/17 21:45 Assess/Plan/Problems-Billing . Assessment: 36 yo woman with unclear somatic complaints including chest and abd pain, and selected lab abnormalities, though now reassuring physical exam. - Patient Problems (1) Type II diabetes mellitus Current Visit: Yes Status: Chronic Priority: High (2) Hyperglycemia due to type 2 diabetes mellitus Current Visit: Yes Status: Acute Priority: High Code(s): E11.65 - TYPE 2 DIABETES MELLITUS WITH HYPERGLYCEMIA Comment: - sugars difficult to control - perhaps initially mild DKA given low bicarb and hyperglycemia and low level lactic acid...but that has resolved as of 08/08. 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 (3) Elevated lactic acid level Current Visit: No Status: Acute Code(s): E87.2 - ACIDOSIS Comment: - Unlikely to be sepsis - No source of infection, afebrile (could have been touriquet issue) - Likely was due to poor perfusion due to hyperglycemia, loose stools and body habitus (vs prolonged touriquet given difficult phleb). - Continue oral hydration
[2017-08-08] MEDS: Mometasone 220 MCG MDI INH SCH (18:26)
[2017-08-08] MEDS: CMCS: Brexpiprazole (NF) 0.5 MG TAB PO SCH (18:27)
[2017-08-08] MEDS: Atorvastatin* 80 MG TAB PO SCH (20:52)
[2017-08-08] MEDS: Prazosin CAP* 1 MG PO SCH (20:52)
[2017-08-08] MEDS: CMCS: Melatonin (NF) 3 MG TAB PO SCH (20:53)
[2017-08-08] MEDS: Prazosin CAP* 5 MG PO SCH (20:56)
[2017-08-09] MEDS: oxyCODONE/Acetamin 5/325 MG* TAB PO PRN ×2 (04:49→18:41)
[2017-08-09] MEDS: LORazepam TAB(*) 1 MG PO PRN (06:31)
[2017-08-09] MEDS: Cholecalciferol TAB* 1000 UNITS PO SCH (08:06)
[2017-08-09] MEDS: VILAZODONE 10 MG PO SCH ×2 (08:06→21:42)
[2017-08-09] MEDS: Spironolactone TAB* 25 MG PO SCH (08:07)
[2017-08-09] MEDS: CMC:SitaGLIPtin (NF) 100 MG TAB PO SCH (08:07)
[2017-08-09] MEDS: Topiramate TAB(*) 25 MG PO SCH ×2 (08:07→21:41)
[2017-08-09] MEDS: Gabapentin CAP(*) 300 MG PO SCH ×2 (08:07→21:52)
[2017-08-09] MEDS: Mycophenolate Mofetil TAB(*) 500 MG PO SCH ×2 (08:07→21:40)
[2017-08-09] MEDS: CMC Pantoprazole TAB (NF) 40 MG TAB PO SCH (08:08)
[2017-08-09] MEDS: Insulin GLARGINE(*) 1 UNITS UNIT SUBCUT SCH ×2 (08:08→21:50)
[2017-08-09] MEDS: predniSONE TAB* 5 MG PO SCH (08:08)
[2017-08-09] MEDS: Cetirizine* 10 MG TAB PO SCH (08:08)
[2017-08-09] MEDS: Insulin LISPRO* 1 UNITS UNIT SUBCUT SCH ×4 (08:08→21:50)
[2017-08-09] MEDS: Ferrous Sulfate TAB* 325 MG PO SCH (08:08)
[2017-08-09] MEDS: Dapsone TAB* 100 MG PO SCH (08:09)
[2017-08-09] MEDS: Vitamin THERAPEUTIC TAB PO SCH (08:10)
[2017-08-09] MEDS: Metoprolol Tartrate TAB* 50 mg PO SCH ×2 (08:10→21:41)
[2017-08-09] MEDS: Dicyclomine CAP* 10 MG PO SCH ×2 (08:10→21:52)
[2017-08-09] MEDS: BIOTIN 10000 MCG PO SCH (11:11)
[2017-08-09] MEDS: Nystatin TOP POWDER* 15 GM BTL TOPICAL SCH ×4 (11:11→22:16)
[2017-08-09] MEDS: METRONIDAZOLE TOPICAL SCH (11:11)
--- NOTE | 2017-08-09 13:20 | PN ---
Subjective - Subjective Date of Service: 08/09/17 Service Type: 07873 Hosp care 25 min moderate complexity Subjective: Patient present in milieu this morning and took herself to her room when prompted for group. Patient endorses continued depressed mood. She states she has had multiple panic attacks this morning due to noise level and agitated peers on unit. She states desire to be able to wear her own jewelry and utilize her own coloring pencils and books. This staff writer and SW encouraged patient to participate in programming. She states that group topics are "annoying" and she already knows the information. This staff writer encourages her to help peers by teaching the information. Patient reports expecting to be ready for discharge "in a few days." Objective - Appearance Appearance: Obese Dysmorphic Features: Yes Hygiene: Dirty Grooming: Disheveled - Behavior Psychomotor Activities: Normal Exhibits Abnormal Movement: No - Attitude and Relatedness Attitude and Relatedness: Superficially Cooperative Eye Contact: Fair - Speech Quality: Unpressured Latencies: Normal Quantity: Appropriate - Mood Patient's Decription of Mood: "depressed" - Affect Observed Affect: Depressed Affect Consistent with: Dysphoria - Thought Process Patient's Thought Process: Coherent, Goal Directed Thought Content: No Passive Wish, No Suicidal Planning, No Homicidal Ideation, No Paranoid Ideation - Sensorium Experiencing Hallucinations: No, Sensorium is Clear Type of Hallucinations: Visual: No, Auditory: No, Command: No - Level of Consciousness Level of Consciousness: Alert Orientation: Yes Intact, Yes Orientated to Time, Yes Orientated to Place, Yes Orientated to Person - Impulse Control Impulse Control: Tenuous - Insight and Judgement Insight and Judgement: Poor - Group Participation Particating in Group Activities: No - Medication Management Medication Management Adherence: Yes Assessment - Assessment Merits Inpatient Hospitalization: For Immediate Safety, For Stabilization, For Discharge Planning Inpatient DSM-IV Dx: PTSD; borderline personality d/o; tobacco use d/o. DM type 2; hypercholesteremia; HTN; vasculitis; tachycardia; asthma; IBS; crohn's dz; GERD; gastroparesis; headaches Clinical Impression: 36yo black female, engaged to a woman, lives at [facility] who presented to ED with c/o chest pressure. She told ED staff about depressed mood and requested an MHE. She reports resurgence of PTSD since moving in to [facility].She has multiple medical comorbidities and has well-established providers in the area. Plan - Plan Treatment Plan: Name: JAYY CANTU Birthdate: 1980 [id number] continue acute intensive psychiatric treatment. coordinate with [facility] for discharge meeting. Continued Medication Management: Continue Outpt Medication Medications: Current Medications Acetaminophen (Tylenol Tab*) 650 mg PO Q4H PRN PRN Reason: PAIN or TEMP > 101 F Last Admin: 08/07/17 17:02 Dose: 650 mg Acetaminophen/Butalbital/Caffeine (Fioricet Tab*) 1 tab PO Q8H PRN PRN Reason: HEADACHE Al Hydrox/Mg Hydrox/Simethicone (Maalox Plus*) 30 ml PO Q4H PRN PRN Reason: INDIGESTION Albuterol (Ventolin Hfa Inhaler*) 2 puff INH Q6H PRN PRN Reason: SOB/WHEEZING Atorvastatin Calcium (Lipitor*) 80 mg PO 2100 [facility] Last Admin: 08/08/17 20:52 Dose: 80 mg Brexpiprazole (Rexulti 0.5 Mg Tab (Nf)) 1 mg PO QPM [facility] Last Admin: 08/08/17 18:27 Dose: 1 mg Calcium Carbonate (Tums*) 1,500 mg PO DAILY PRN PRN Reason: GERD Cetirizine HCl (Zyrtec*) 10 mg PO QAM [facility] Last Admin: 08/09/17 08:08 Dose: 10 mg Cholecalciferol (Vitamin D Tab*) 2,000 units PO QAM [facility] Last Admin: 08/09/17 08:06 Dose: 2,000 units Dapsone (Dapsone Tab*) 25 mg PO DAILY [facility] Last Admin: 08/09/17 08:09 Dose: 25 mg Dextrose (D50w Syringe 50 Ml*) 12.5 gm IV PUSH .FOR FS < 60 - SS PRN PRN Reason: FS < 60 Dicyclomine HCl (Bentyl Cap*) 10 mg PO BID [facility] Last Admin: 08/09/17 08:10 Dose: 10 mg Ferrous Sulfate (Ferrous Sulfate Tab*) 325 mg PO QAM [facility] Last Admin: 08/09/17 08:08 Dose: 325 mg Gabapentin (Neurontin Cap(*)) 600 mg PO BEDTIME [facility] Last Admin: 08/08/17 20:54 Dose: 600 mg Gabapentin (Neurontin Cap(*)) 300 mg PO QAM [facility] Last Admin: 08/09/17 08:07 Dose: 300 mg Insulin Glargine (Lantus(*)) 70 units SUBCUT Q12H [facility] Last Admin: 08/09/17 08:08 Dose: 70 units Insulin Human Lispro (Humalog*) 0 units SUBCUT ACHS [facility] PRN Reason: Protocol Last Admin: 08/09/17 12:00 Dose: 18 units Lorazepam (Ativan Tab(*)) 1 mg PO BID PRN PRN Reason: ANXIETY Last Admin: 08/09/17 06:31 Dose: 1 mg Melatonin (Melatonin (Nf)) 3 mg PO BEDTIME [facility] Last Admin: 08/08/17 20:53 Dose: 3 mg Metoprolol Tartrate (Lopressor Tab*) 50 mg PO BID [facility] Last Admin: 08/09/17 08:10 Dose: 50 mg Metronidazole (Metrocream (Nf)) 1 applic TOPICAL DAILY [facility] Last Admin: 08/09/17 11:11 Dose: Not Given Mometasone Furoate (Asmanex 220 Mcg Mdi *) 1 puff INH QPM [facility] Last Admin: 08/08/17 18:26 Dose: 1 puff Multivitamins (Theragran Tab*) 1 tab PO DAILY [facility] Last Admin: 08/09/17 08:10 Dose: 1 tab Mycophenolate Mofetil (Cellcept Tab(*)) 1,500 mg PO BID [facility] Last Admin: 08/09/17 08:07 Dose: 1,500 mg (Biotin [Biotin Maximum Strength] 10 ,000 Mcg) 10,000 mcg PO QAM [facility] Last Admin: 08/09/17 11:11 Dose: Not Given Nystatin (Nystatin Top Powder*) 1 applic TOPICAL TID [facility] Last Admin: 08/08/17 21:07 Dose: 1 applic Ondansetron HCl (Zofran Odt Tab*) 4 mg PO Q6H PRN PRN Reason: NAUSEA Last Admin: 08/06/17 13:39 Dose: 4 mg Oxycodone/Acetaminophen (Percocet 5/325 Tab*) 1 tab PO Q6H PRN PRN Reason: PAIN Last Admin: 08/09/17 04:49 Dose: 1 tab Pantoprazole Sodium (Protonix Tab (Nf)) 40 mg PO 0730 [facility] Last Admin: 08/09/17 08:08 Dose: 40 mg Prazosin HCl (Minipress Cap*) 1 mg PO BEDTIME [facility] Last Admin: 08/08/17 20:52 Dose: 1 mg Prazosin HCl (Minipress Cap*) 5 mg PO BEDTIME [facility] Last Admin: 08/08/17 20:56 Dose: 5 mg Prednisone (Deltasone Tab*) 2.5 mg PO QAM [facility] Stop: 08/22/17 10:00 Last Admin: 08/09/17 08:08 Dose: 2.5 mg Sitagliptin Phosphate (Januvia (Nf)) 100 mg PO QAM [facility] PRN Reason: Protocol Last Admin: 08/09/17 08:07 Dose: 100 mg Sodium Chloride (Sodium Chloride 0.65% Nasal [place]*) 1 spray BOTH NARES Q4H PRN PRN Reason: CONGESTION Last Admin: 08/07/17 08:10 Dose: 1 spray Spironolactone (Aldactone Tab*) [facility] Last Admin: 08/09/17 08:07 Dose: 50 mg Throat Lozenges (Chloraseptic Magen*) 1 magen PO Q6H PRN PRN Reason: SORE THROAT Topiramate (Topamax(*)) 50 mg PO BID [facility] Last Admin: 08/09/17 08:07 Dose: 50 mg Varenicline (Chantix (Nf)) 0.5 mg PO DAILY [facility] Vilazodone HCl (Viibryd (Nf)) 20 mg PO BID [facility] Last Admin: 08/09/17 08:06 Dose: 20 mg - Discharge Plan Discharge Plan: Outpatient Follow Up Outpatient Program: [facility]
[2017-08-09] MEDS: Mometasone 220 MCG MDI INH SCH (18:35)
[2017-08-09] MEDS: CMCS: Brexpiprazole (NF) 0.5 MG TAB PO SCH (18:38)
[2017-08-09] MEDS: Atorvastatin* 80 MG TAB PO SCH (21:41)
[2017-08-09] MEDS: Prazosin CAP* 1 MG PO SCH (21:41)
[2017-08-09] MEDS: Prazosin CAP* 5 MG PO SCH (21:41)
[2017-08-09] MEDS: CMCS: Melatonin (NF) 3 MG TAB PO SCH (21:41)
[2017-08-10] MEDS: LORazepam TAB(*) 1 MG PO PRN ×2 (00:05→18:05)
[2017-08-10] MEDS: Albuterol HFA INHALER* 8 gm MDI INH PRN (01:21)
[2017-08-10] MEDS: BIOTIN 10000 MCG PO SCH (07:42)
[2017-08-10] MEDS: METRONIDAZOLE TOPICAL SCH (07:44)
[2017-08-10] MEDS: Insulin LISPRO* 1 UNITS UNIT SUBCUT SCH ×4 (11:38→22:06)
[2017-08-10] MEDS: Dicyclomine CAP* 10 MG PO SCH ×2 (11:38→22:03)
[2017-08-10] MEDS: Metoprolol Tartrate TAB* 50 mg PO SCH ×2 (11:39→22:03)
[2017-08-10] MEDS: Insulin GLARGINE(*) 1 UNITS UNIT SUBCUT SCH ×2 (11:39→22:12)
[2017-08-10] MEDS: oxyCODONE/Acetamin 5/325 MG* TAB PO PRN ×2 (12:43→19:32)
[2017-08-10] MEDS: CMC Pantoprazole TAB (NF) 40 MG TAB PO SCH ×2 (12:49→14:12)
[2017-08-10] MEDS: VILAZODONE 10 MG PO SCH ×3 (12:49→22:04)
[2017-08-10] MEDS: Vitamin THERAPEUTIC TAB PO SCH (12:49)
[2017-08-10] MEDS: Cholecalciferol TAB* 1000 UNITS PO SCH ×2 (12:50→14:10)
[2017-08-10] MEDS: Ferrous Sulfate TAB* 325 MG PO SCH ×2 (12:50→14:14)
[2017-08-10] MEDS: Dapsone TAB* 100 MG PO SCH ×2 (12:50→14:06)
[2017-08-10] MEDS: predniSONE TAB* 5 MG PO SCH ×2 (12:50→14:06)
[2017-08-10] MEDS: Gabapentin CAP(*) 300 MG PO SCH ×3 (12:50→22:02)
[2017-08-10] MEDS: Nystatin TOP POWDER* 15 GM BTL TOPICAL SCH ×3 (12:50→22:04)
[2017-08-10] MEDS: CMC:SitaGLIPtin (NF) 100 MG TAB PO SCH ×3 (12:50→14:10)
[2017-08-10] MEDS: Mycophenolate Mofetil TAB(*) 500 MG PO SCH ×2 (12:50→22:02)
[2017-08-10] MEDS: Cetirizine* 10 MG TAB PO SCH ×2 (12:50→14:10)
[2017-08-10] MEDS: Spironolactone TAB* 25 MG PO SCH ×2 (12:51→14:14)
[2017-08-10] MEDS: VARENICLINE 0.5 MG PO SCH (12:51)
[2017-08-10] MEDS: Topiramate TAB(*) 25 MG PO SCH ×2 (12:51→22:04)
[2017-08-10 13:33] LABS: Albumin 3.6 g/dL (3.2-5.2); BUN/Creatinine Ratio 15.3 (8-20); Calcium 9.4 mg/dL (8.6-10.3); EGFR African American 150.1 (>60); EGFR Non-African American 116.7 (>60); Globulin 4.1 g/dL (2-4); HDL Cholesterol 37.1 mg/dL; Potassium 4.3 mmol/L (3.5-5.0); Total Bilirubin 0.5 mg/dL (0.2-1.0); Total Protein 7.7 g/dL (6.4-8.9)
--- NOTE | 2017-08-10 14:07 | PN ---
Subjective - Subjective Service Type: 15545 Hosp care 35 min high complexity Subjective: Patient has been refusing medications, fingersticks, and programming. Lead Fire Protection Engineer asked about motivation for the above and patient states "I don't feel like being alive." She endorses feeling rejected by her family members, specifically her father and stepmother who live in the area. Patient states "the only person who cared two years ago" and refers to her brother. Lead Fire Protection Engineer notified her of plan to meet with her care providers tomorrow to identify treatment planning. Lead Fire Protection Engineer strongly encouraged her to participate in treatment on unit. Objective - Appearance Appearance: Obese Dysmorphic Features: Yes Hygiene: Mal-odorous Grooming: Disheveled - Behavior Psychomotor Activities: Normal Exhibits Abnormal Movement: No - Attitude and Relatedness Attitude and Relatedness: Irritable Eye Contact: Good - intense stare at times - Speech Quality: Unpressured Latencies: Normal Quantity: Appropriate - Mood Patient's Decription of Mood: "Upset" - Affect Observed Affect: Depressed Affect Consistent with: Dysphoria - Thought Process Patient's Thought Process: Impoverished Thought Content: Yes Passive Wish, Yes Suicidal Planning, No Homicidal Ideation, No Paranoid Ideation - Sensorium Experiencing Hallucinations: No, Sensorium is Clear Type of Hallucinations: Visual: No, Auditory: No, Command: No - Level of Consciousness Level of Consciousness: Alert Orientation: Yes Intact, Yes Orientated to Time, Yes Orientated to Place, Yes Orientated to Person - Impulse Control Impulse Control: Poor - Insight and Judgement Insight and Judgement: Poor - Group Participation Particating in Group Activities: No - Medication Management Medication Management Adherence: No Assessment - Assessment Merits Inpatient Hospitalization: For Immediate Safety, For Stabilization, Consolidate Improvements, For Discharge Planning Inpatient DSM-IV Dx: PTSD; borderline personality d/o; tobacco use d/o. DM type 2; hypercholesteremia; HTN; vasculitis; tachycardia; asthma; IBS; crohn's dz; GERD; gastroparesis; headaches Clinical Impression: 36yo black female, engaged to a woman, lives at [facility] who presented to ED with c/o chest pressure. She told ED staff about depressed mood and requested an MHE. She reports resurgence of PTSD since moving in to [facility].She has multiple medical comorbidities and has well-established providers in the area. Plan - Plan Treatment Plan: Name: JAYY CANTU Birthdate: 1980 [id number] continue acute intensive psychiatric treatment. Care provider meeting scheduled for wed, 08/11/17 at 3pm. Continued Medication Management: Continue Outpt Medication Medications: Current Medications Acetaminophen (Tylenol Tab*) 650 mg PO Q4H PRN PRN Reason: PAIN or TEMP > 101 F Last Admin: 08/07/17 17:02 Dose: 650 mg Acetaminophen/Butalbital/Caffeine (Fioricet Tab*) 1 tab PO Q8H PRN PRN Reason: HEADACHE Al Hydrox/Mg Hydrox/Simethicone (Maalox Plus*) 30 ml PO Q4H PRN PRN Reason: INDIGESTION Albuterol (Ventolin Hfa Inhaler*) 2 puff INH Q6H PRN PRN Reason: SOB/WHEEZING Last Admin: 08/10/17 01:21 Dose: 2 puff Atorvastatin Calcium (Lipitor*) 80 mg PO 2100 [facility] Last Admin: 08/09/17 21:41 Dose: 80 mg Brexpiprazole (Rexulti 0.5 Mg Tab (Nf)) 1 mg PO QPM [facility] Last Admin: 08/09/17 18:38 Dose: 1 mg Calcium Carbonate (Tums*) 1,500 mg PO DAILY PRN PRN Reason: GERD Cetirizine HCl (Zyrtec*) 10 mg PO QAM [facility] Last Admin: 08/10/17 12:50 Dose: Not Given Cholecalciferol (Vitamin D Tab*) 2,000 units PO QAM [facility] Last Admin: 08/10/17 12:50 Dose: Not Given Dapsone (Dapsone Tab*) 25 mg PO DAILY [facility] Last Admin: 08/10/17 12:50 Dose: Not Given Dextrose (D50w Syringe 50 Ml*) 12.5 gm IV PUSH .FOR FS < 60 - SS PRN PRN Reason: FS < 60 Dicyclomine HCl (Bentyl Cap*) 10 mg PO BID [facility] Last Admin: 08/10/17 11:38 Dose: Not Given Ferrous Sulfate (Ferrous Sulfate Tab*) 325 mg PO QAM [facility] Last Admin: 08/10/17 12:50 Dose: Not Given Gabapentin (Neurontin Cap(*)) 600 mg PO BEDTIME [facility] Last Admin: 08/09/17 21:52 Dose: 600 mg Gabapentin (Neurontin Cap(*)) 300 mg PO QAM [facility] Last Admin: 08/10/17 12:50 Dose: Not Given Insulin Glargine (Lantus(*)) 70 units SUBCUT Q12H [facility] Last Admin: 08/10/17 11:39 Dose: Not Given Insulin Human Lispro (Humalog*) 0 units SUBCUT ACHS KRISTEN PRN Reason: Protocol Last Admin: 08/10/17 13:25 Dose: 18 units Lorazepam (Ativan Tab(*)) 1 mg PO BID PRN PRN Reason: ANXIETY Last Admin: 08/10/17 00:05 Dose: 1 mg Melatonin (Melatonin (Nf)) 3 mg PO BEDTIME [facility] Last Admin: 08/09/17 21:41 Dose: 3 mg Metoprolol Tartrate (Lopressor Tab*) 50 mg PO BID [facility] Last Admin: 08/10/17 11:39 Dose: Not Given Metronidazole (Metrocream (Nf)) 1 applic TOPICAL DAILY [facility] Last Admin: 08/10/17 07:44 Dose: Not Given Mometasone Furoate (Asmanex 220 Mcg Mdi *) 1 puff INH QPM [facility] Last Admin: 08/09/17 18:35 Dose: 1 puff Multivitamins (Theragran Tab*) 1 tab PO DAILY [facility] Last Admin: 08/10/17 12:49 Dose: Not Given Mycophenolate Mofetil (Cellcept Tab(*)) 1,500 mg PO BID [facility] Last Admin: 08/10/17 12:50 Dose: Not Given Pto (Biotin [Biotin Maximum Strength] 10,000 Mcg) 10,000 mcg PO QAM [facility] Last Admin: 08/10/17 07:42 Dose: Not Given Nystatin (Nystatin Top Powder*) 1 applic TOPICAL TID [facility] Last Admin: 08/10/17 13:32 Dose: Not Given Ondansetron HCl (Zofran Odt Tab*) 4 mg PO Q6H PRN PRN Reason: NAUSEA Last Admin: 08/06/17 13:39 Dose: 4 mg Oxycodone/Acetaminophen (Percocet 5/325 Tab*) 1 tab PO Q6H PRN PRN Reason: PAIN Last Admin: 08/10/17 12:43 Dose: 1 tab Pantoprazole Sodium (Protonix Tab (Nf)) 40 mg PO 0730 [facility] Last Admin: 08/10/17 12:49 Dose: Not Given Prazosin HCl (Minipress Cap*) 1 mg PO BEDTIME [facility] Last Admin: 08/09/17 21:41 Dose: 1 mg Prazosin HCl (Minipress Cap*) 5 mg PO BEDTIME [facility] Last Admin: 08/09/17 21:41 Dose: 5 mg Prednisone (Deltasone Tab*) [facility] [place] Stop: 08/22/17 10:00 Last Admin: 08/10/17 12:50 Dose: Not Given Sitagliptin Phosphate (Januvia (Nf)) 100 mg [facility] [place] PRN Reason: Protocol Last Admin: 08/10/17 12:50 Dose: Not Given Sodium Chloride (Sodium Chloride 0.65% Nasal [place]*) 1 spray BOTH NARES Q4H PRN PRN Reason: CONGESTION Last Admin: 08/07/17 08:10 Dose: 1 spray Spironolactone (Aldactone Tab*) 50 mg PO [facility] Last Admin: 08/10/17 12:51 Dose: Not Given Throat Lozenges (Chloraseptic Magen*) 1 magen PO Q6H PRN PRN Reason: SORE THROAT Topiramate (Topamax(*)) 50 mg PO BID [facility] Last Admin: 08/10/17 12:51 Dose: Not Given Varenicline (Chantix (Nf)) 0.5 mg PO DAILY [facility] Last Admin: 08/10/17 12:51 Dose: Not Given Vilazodone HCl (Viibryd (Nf)) 20 mg PO BID [facility] Last Admin: 08/10/17 12:49 Dose: Not Given - Discharge Plan Discharge Plan[facility]
[2017-08-10] MEDS: Butalb/Acetamin/Caff TAB* 1 TAB PO PRN (14:11)
[2017-08-10] MEDS: Ondansetron ODT TAB* 4 MG PO PRN (15:25)
[2017-08-10] MEDS: CMCS: Brexpiprazole (NF) 0.5 MG TAB PO SCH (17:25)
[2017-08-10] MEDS: Mometasone 220 MCG MDI INH SCH (17:34)
[2017-08-10] MEDS: Prazosin CAP* 5 MG PO SCH (22:02)
[2017-08-10] MEDS: CMCS: Melatonin (NF) 3 MG TAB PO SCH (22:03)
[2017-08-10] MEDS: Prazosin CAP* 1 MG PO SCH (22:03)
[2017-08-10] MEDS: Atorvastatin* 80 MG TAB PO SCH (22:03)
[2017-08-10] MEDS ORDERED: Ibuprofen TAB* 400 MG PO PRN (22:35)
[2017-08-11] MEDS: oxyCODONE/Acetamin 5/325 MG* TAB PO PRN ×3 (04:47→21:57)
[2017-08-11] MEDS: Insulin LISPRO* 1 UNITS UNIT SUBCUT SCH ×4 (08:23→21:48)
[2017-08-11] MEDS: Vitamin THERAPEUTIC TAB PO SCH (09:56)
[2017-08-11] MEDS: VILAZODONE 10 MG PO SCH ×2 (09:56→21:49)
[2017-08-11] MEDS: Dapsone TAB* 100 MG PO SCH (09:56)
[2017-08-11] MEDS: predniSONE TAB* 5 MG PO SCH (09:58)
[2017-08-11] MEDS: Dicyclomine CAP* 10 MG PO SCH ×2 (09:59→21:51)
[2017-08-11] MEDS: Metoprolol Tartrate TAB* 50 mg PO SCH ×2 (09:59→21:52)
[2017-08-11] MEDS: Ferrous Sulfate TAB* 325 MG PO SCH (10:00)
[2017-08-11] MEDS: Cetirizine* 10 MG TAB PO SCH (10:00)
[2017-08-11] MEDS: Spironolactone TAB* 25 MG PO SCH (10:00)
[2017-08-11] MEDS: CMC:SitaGLIPtin (NF) 100 MG TAB PO SCH (10:00)
[2017-08-11] MEDS: CMC Pantoprazole TAB (NF) 40 MG TAB PO SCH (10:01)
[2017-08-11] MEDS: Cholecalciferol TAB* 1000 UNITS PO SCH (10:01)
[2017-08-11] MEDS: Mycophenolate Mofetil TAB(*) 500 MG PO SCH ×2 (10:02→21:50)
[2017-08-11] MEDS: Gabapentin CAP(*) 300 MG PO SCH ×2 (10:02→21:52)
[2017-08-11] MEDS: Topiramate TAB(*) 25 MG PO SCH ×2 (10:03→21:53)
[2017-08-11] MEDS: Insulin GLARGINE(*) 1 UNITS UNIT SUBCUT SCH ×2 (10:09→21:48)
[2017-08-11] MEDS: BIOTIN 10000 MCG PO SCH (10:11)
[2017-08-11] MEDS: METRONIDAZOLE TOPICAL SCH (10:11)
[2017-08-11] MEDS: Nystatin TOP POWDER* 15 GM BTL TOPICAL SCH ×3 (10:11→22:54)
[2017-08-11] MEDS: VARENICLINE 0.5 MG PO SCH (10:12)
[2017-08-11] MEDS: LORazepam TAB(*) 1 MG PO PRN (11:20)
--- NOTE | 2017-08-11 18:27 | PN ---
Subjective - Subjective Date of Service: 08/11/17 Service Type: 34586 Hosp care 35 min high complexity Subjective: patient was euthymic with bright affect this morning. She was interactive with peers and present in milieu. She reported frustration with roommate's hyperactivity and intrusiveness. Patient reports looking forward to meeting and encouraged to write a list of topics she would like to discuss. Per staff, she has been inconsistent with group attendance and contributes negatively, at times. She is intermittently adherent to diabetes management. One hour provider meeting: Patient met with Mehnaz mar, Director of [facility]; Adele Jeong RN CAP watch case polisher and via phone- LINDEN Amaya watch case polisher. Wireless Sales Representative states purpose of meeting is to coordinate care and avoid triangulation. Patient did not complete list of topics as mentioned above. Patient reports increase in symptoms of PTSD. With prompting, she clarifies flashbacks and dissociation. She is dismissive to suggestions and reports she has already tried various methods, including grounding. She states she is not interested in continuing DBT or PROS. She states she does not get along well with current [facility] therapist and has difficulty with scheduling due to therapist' s availability. Patient discussed frustration with feeling overwhelmed with multiple medical appointments. Adele reports prioritizing medical appointments per patient's request. She is willing to adjust scheduling. She encourages Jayy to make healthy choices and verbalize these to her. Patient discussed frustration with staff/peers at [facility]. Mehnaz reports that peers have had consequences that she cannot share with Jayy due to patient confidentiality. She gives feedback to Jayy that she continues to have a friendship with male peer, including allowing him to visit, and that this is questionable boundaries. Ly reports Jayy shares much dissatisfaction with [facility]. Discussion goes on to various housing options in the area. Jayy declines desire to move out of [facility]. Ly also reports intent to clarify with Dr Muñoz and [facility] about Jayy's therapist assignment change. Plan is to dc Jayy to [facility] on morning of 08/12/17 via taxi. Objective - Appearance Appearance: Obese Dysmorphic Features: Yes Hygiene: Normal Grooming: Fairly Well Kept - Behavior Psychomotor Activities: Normal Exhibits Abnormal Movement: No - Attitude and Relatedness Attitude and Relatedness: Needy Eye Contact: Good - Speech Quality: Unpressured Latencies: Short Quantity: Terse - Mood Patient's Decription of Mood: declines to answer - Affect Observed Affect: Expansive Affect Consistent with: Dysphoria - Thought Process Patient's Thought Process: Circumstantial Thought Content: Yes Passive Wish, No Suicidal Planning, No Homicidal Ideation, No Paranoid Ideation - Sensorium Experiencing Hallucinations: No, Sensorium is Clear Type of Hallucinations: Visual: No, Auditory: No, Command: No - Level of Consciousness Level of Consciousness: Alert Orientation: Yes Intact, Yes Orientated to Time, Yes Orientated to Place, Yes Orientated to Person - Impulse Control Impulse Control: Intact - Insight and Judgement Insight and Judgement: Fair - Group Participation Particating in Group Activities: No - Medication Management Medication Management Adherence: Partial Assessment - Assessment Merits Inpatient Hospitalization: For Immediate Safety, For Stabilization, For Discharge Planning Inpatient DSM-IV Dx: PTSD; borderline personality d/o; tobacco use d/o. DM type 2; hypercholesteremia; HTN; vasculitis; tachycardia; asthma; IBS; crohn's dz; GERD; gastroparesis; headaches Clinical Impression: 36yo black female, engaged to a woman, lives at [facility] who presented to ED with c/o chest pressure. She told ED staff about depressed mood and requested an MHE. She reports resurgence of PTSD since moving in to [facility]. She has multiple medical comorbidities and has well-established providers in the area. Plan - Plan Treatment Plan: Name: JAYY CANTU Birthdate: 1980 [id number] continue acute intensive psychiatric treatment. provider meeting held today with outside agencies. patient to be discharged to [facility] in am. Continued Medication Management: Continue Outpt Medication Medications: Current Medications Acetaminophen (Tylenol Tab*) 650 mg PO Q4H PRN PRN Reason: PAIN or TEMP > 101 F Last Admin: 08/07/17 17:02 Dose: 650 mg Acetaminophen/Butalbital/Caffeine (Fioricet Tab*) 1 tab PO Q8H PRN PRN Reason: HEADACHE Last Admin: 08/10/17 14:11 Dose: 1 tab Al Hydrox/Mg Hydrox/Simethicone (Maalox Plus*) 30 ml PO Q4H PRN PRN Reason: INDIGESTION Albuterol (Ventolin Hfa Inhaler*) 2 puff INH Q6H PRN PRN Reason: SOB/WHEEZING Last Admin: 08/10/17 01:21 Dose: 2 puff Atorvastatin Calcium (Lipitor*) 80 mg PO 2100 [facility]S [facility] BEDS AT [facility] Last Admin: 08/10/17 22:03 Dose: 80 mg Brexpiprazole (Rexulti 0.5 Mg Tab (Nf)) 1 mg PO QPM [facility] 234 BEDS AT [facility] Last Admin: 08/10/17 17:25 Dose: 1 mg Calcium Carbonate (Tums*) 1,500 mg PO DAILY PRN PRN Reason: GERD Cetirizine HCl (Zyrtec*) 10 mg PO QAM [facility]S [facility]CLUDE 234 BEDS AT [facility] Last Admin: 08/11/17 10:00 Dose: 10 mg Cholecalciferol (Vitamin D Tab*) 2,000 units PO QAM COUNTS INCLUDE 234 BEDS AT [facility] Last Admin: 08/11/17 10:01 Dose: 2,000 units Dapsone (Dapsone Tab*) 50 mg PO DAILY COUNTS INCLUDE 234 BEDS AT [facility] Dextrose (D50w Syringe 50 Ml*) 12.5 gm IV PUSH .FOR FS < 60 - SS PRN PRN Reason: FS < 60 Dicyclomine HCl (Bentyl Cap*) 10 mg PO BID [facility] 234 BEDS AT [facility] Last Admin: 08/11/17 09:59 Dose: 10 mg Ferrous Sulfate (Ferrous Sulfate Tab*) 325 mg PO QAM COUNTS INCLUDE 234 BEDS AT [facility] Last Admin: 08/11/17 10:00 Dose: 325 mg Gabapentin (Neurontin Cap(*)) 600 mg PO BEDTIME COUNTS INCLUDE 234 BEDS AT [facility] Last Admin: 08/10/17 22:02 Dose: 600 mg Gabapentin (Neurontin Cap(*)) 300 mg PO QAM COUNTS INCLUDE 234 BEDS AT [facility] Last Admin: 08/11/17 10:02 Dose: 300 mg Ibuprofen (Motrin Tab*) 400 mg PO Q6H PRN PRN Reason: PAIN OR FEVER Last Admin: 08/10/17 22:54 Dose: 400 mg Insulin Glargine (Lantus(*)) 70 units SUBCUT Q12H COUNTS INCLUDE 234 BEDS AT [facility] Last Admin: 08/11/17 10:09 Dose: 70 units Insulin Human Lispro (Humalog*) 0 units SUBCUT ACHS COUNTS INCLUDE 234 BEDS AT [facility] PRN Reason: Protocol Last Admin: 08/11/17 12:12 Dose: 18 units Lorazepam (Ativan Tab(*)) 1 mg PO BID PRN PRN Reason: ANXIETY Last Admin: 08/11/17 11:20 Dose: 1 mg Melatonin (Melatonin (Nf)) 3 mg PO BEDTIME COUNTS INCLUDE 234 B[facility]S AT [facility] Last Admin: 08/10/17 22:03 Dose: 3 mg Metoprolol Tartrate (Lopressor Tab*) 50 mg PO BID [facility]CLUDE 234 B[facility]S AT [facility] Last Admin: 08/11/17 09:59 Dose: 50 mg Metronidazole (Metrocream (Nf)) 1 applic TOPICAL DAILY COUNTS INCLUDE 234 B[facility]S AT [facility] Last Admin: 08/11/17 10:11 Dose: Not Given Mometasone Furoate (Asmanex 220 Mcg Mdi *) 1 puff INH QPM COUNTS INCLUDE 234 BEDS AT [facility] Last Admin: 08/10/17 17:34 Dose: Not Given Multivitamins (Theragran Tab*) 1 tab PO DAILY COUNTS INCLUDE 234 BEDS AT [facility] Last Admin: 08/11/17 09:56 Dose: 1 tab Mycophenolate Mofetil (Cellcept Tab(*)) 1,500 mg PO BID [facility]CLUDE 234 BEDS AT [facility] Last Admin: 08/11/17 10:02 Dose: 1,500 mg Pto (Biotin [Biotin Maximum Strength] 10,000 Mcg) 10,000 mcg PO QAM COUNTS [facility]CLUDE 234 BEDS AT [facility] Last Admin: 08/11/17 10:11 Dose: Not Given Nystatin (Nystatin Top Powder*) 1 applic TOPICAL TID COUNTS INCLUDE 234 BEDS AT [facility] Last Admin: 08/11/17 15:06 Dose: Not Given Ondansetron HCl (Zofran Odt Tab*) 4 mg PO Q6H PRN PRN Reason: NAUSEA Last Admin: 08/10/17 15:25 Dose: 4 mg Oxycodone/Acetaminophen (Percocet 5/325 Tab*) 1 tab PO Q6H PRN PRN Reason: PAIN Last Admin: 08/11/17 11:20 Dose: 1 tab Pantoprazole Sodium (Protonix Tab (Nf)) 40 mg PO 0730 COUNTS INCLUDE 234 BEDS AT [facility] Last Admin: 08/11/17 10:01 Dose: 40 mg Prazosin HCl (Minipress Cap*) 1 mg PO BEDTIME COUNTS INCLUDE 234 BEDS AT [facility] Last Admin: 08/10/17 22:03 Dose: 1 mg Prazosin HCl (Minipress Cap*) 5 mg PO BEDTIME COUNTS INCLUDE 234 BEDS AT [facility] Last Admin: 08/10/17 22:02 Dose: 5 mg Prednisone (Deltasone Tab*) 2.5 mg PO QAM COUNTS INCLUDE 234 BEDS AT [facility] Stop: 08/22/17 10:00 Last Admin: 08/11/17 09:58 Dose: 2.5 mg Sitagliptin Phosphate (Januvia (Nf)) 100 mg PO QAM [facility]S [facility]CLUDE 234 BEDS AT [facility] PRN Reason: Protocol Last Admin: 08/11/17 10:00 Dose: 100 mg Sodium Chloride (Sodium Chloride 0.65% Nasal [place]*) 1 spray BOTH NARES Q4H PRN PRN Reason: CONGESTION Last Admin: 08/07/17 08:10 Dose: 1 spray Spironolactone (Aldactone Tab*) 50 mg PO QAM COUNTS INCLUDE 234 BEDS AT [facility] Last Admin: 08/11/17 10:00 Dose: 50 mg Throat Lozenges (Chloraseptic Magen*) 1 magen PO Q6H PRN PRN Reason: SORE THROAT Topiramate (Topamax(*)) 50 mg PO BID COUNTS INCLUDE 234 BEDS AT [facility] Last Admin: 08/11/17 10:03 Dose: 50 mg Varenicline (Chantix (Nf)) 0.5 mg PO DAILY COUNTS INCLUDE 234 BEDS AT [facility] Last Admin: 08/11/17 10:12 Dose: Not Given Vilazodone HCl (Viibryd (Nf)) 20 mg PO BID COUNTS INCLUDE 234 BEDS AT [facility] Last Admin: 08/11/17 09:56 Dose: 20 mg - Discharge Plan Discharge Plan: Outpatient Follow Up Outpatient Program: [facility]
[2017-08-11] MEDS: Mometasone 220 MCG MDI INH SCH (18:50)
[2017-08-11] MEDS: CMCS: Brexpiprazole (NF) 0.5 MG TAB PO SCH (18:50)
[2017-08-11] MEDS: CMCS: Melatonin (NF) 3 MG TAB PO SCH (21:50)
[2017-08-11] MEDS: Prazosin CAP* 1 MG PO SCH (21:50)
[2017-08-11] MEDS: Prazosin CAP* 5 MG PO SCH (21:50)
[2017-08-11] MEDS: Atorvastatin* 80 MG TAB PO SCH (21:53)
[2017-08-11] MEDS: Albuterol HFA INHALER* 8 gm MDI INH PRN (21:54)
[2017-08-12] MEDS: oxyCODONE/Acetamin 5/325 MG* TAB PO PRN (06:32)
[2017-08-12] MEDS: Butalb/Acetamin/Caff TAB* 1 TAB PO PRN (06:32)
[2017-08-12] MEDS: BIOTIN 10000 MCG PO SCH (07:41)
[2017-08-12] MEDS: VARENICLINE 0.5 MG PO SCH (07:44)
[2017-08-12 07:48] VITALS: BP 91/55
[2017-08-12] MEDS: Insulin GLARGINE(*) 1 UNITS UNIT SUBCUT SCH (07:52)
[2017-08-12] MEDS: Insulin LISPRO* 1 UNITS UNIT SUBCUT SCH ×2 (07:52→07:54)
[2017-08-12] MEDS: CMC:SitaGLIPtin (NF) 100 MG TAB PO SCH (07:58)
[2017-08-12] MEDS: Gabapentin CAP(*) 300 MG PO SCH (07:58)
[2017-08-12] MEDS: Topiramate TAB(*) 25 MG PO SCH (07:59)
[2017-08-12] MEDS: Mycophenolate Mofetil TAB(*) 500 MG PO SCH (07:59)
[2017-08-12] MEDS: Vitamin THERAPEUTIC TAB PO SCH (08:00)
[2017-08-12] MEDS: Cholecalciferol TAB* 1000 UNITS PO SCH (08:01)
[2017-08-12] MEDS: CMC Pantoprazole TAB (NF) 40 MG TAB PO SCH (08:02)
[2017-08-12] MEDS: Dicyclomine CAP* 10 MG PO SCH (08:02)
[2017-08-12] MEDS: Spironolactone TAB* 25 MG PO SCH (08:02)
[2017-08-12] MEDS: Ferrous Sulfate TAB* 325 MG PO SCH (08:02)
[2017-08-12] MEDS: Cetirizine* 10 MG TAB PO SCH (08:03)
[2017-08-12] MEDS: predniSONE TAB* 5 MG PO SCH (08:03)
[2017-08-12] MEDS: METRONIDAZOLE TOPICAL SCH (08:03)
[2017-08-12] MEDS: VILAZODONE 10 MG PO SCH (08:04)
[2017-08-12] MEDS ORDERED: Dapsone TAB* 100 MG PO SCH (09:00)
[2017-08-12] MEDS: Metoprolol Tartrate TAB* 50 mg PO SCH (09:59)
[2017-08-12] MEDS: Nystatin TOP POWDER* 15 GM BTL TOPICAL SCH (10:01)
--- NOTE | 2017-08-12 11:37 | PN ---
MHU: Group Therapy Note - Service Type Service Type: 13099 Group Psychotherapy - Cognitive Behavioral Group Therapy ( CBT):Patient was attentive and participatory in CBT programming this morning, and remained in good behavioral control. Patient expressed positive insights regarding relevant treatment interventions and goals.
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
== END 2017-08-12 12:00 | disposition home or self-care (01) | DRG 755 ==
LOC: ED 15:23 → BSU 08-06 04:33
PROVIDERS: ADMIT Psychiatry & Neurology Psychiatry; ATTEND Hospitalist
PROC: GZHZZZZ Group Psychotherapy (ICD-10-PCS; principal; 2017-08-12)
DX: F43.10 Post-traumatic stress disorder, unspecified (principal); E87.2 Acidosis; K31.84 Gastroparesis; E10.43 Type 1 diabetes mellitus with diabetic autonomic (poly)neuropathy; E66.01 Morbid (severe) obesity due to excess calories; E10.65 Type 1 diabetes mellitus with hyperglycemia; K50.90 Crohn's disease, unspecified, without complications; R45.851 Suicidal ideations; Z68.43 Body mass index [BMI] 50.0-59.9, adult; J45.909 Unspecified asthma, uncomplicated; K21.9 Gastro-esophageal reflux disease without esophagitis; G43.909 Migraine, unspecified, not intractable, without status migrainosus; F41.0 Panic disorder [episodic paroxysmal anxiety]; F32.9 Major depressive disorder, single episode, unspecified; F60.3 Borderline personality disorder; F17.210 Nicotine dependence, cigarettes, uncomplicated; Z62.810 Personal history of physical and sexual abuse in childhood; E28.2 Polycystic ovarian syndrome; L95.9 Vasculitis limited to the skin, unspecified; E78.5 Hyperlipidemia, unspecified; Z90.49 Acquired absence of other specified parts of digestive tract; Z88.2 Allergy status to sulfonamides; Z88.8 Allergy status to other drugs, medicaments and biological substances; Z88.6 Allergy status to analgesic agent; Z91.030 Bee allergy status; Z82.49 Family history of ischemic heart disease and other diseases of the circulatory system; Z83.3 Family history of diabetes mellitus; Z81.8 Family history of other mental and behavioral disorders; Z81.1 Family history of alcohol abuse and dependence; Z79.4 Long term (current) use of insulin
CPT/HCPCS: 36415; 71010; 80048; 80053; 80061; 80307; 80320; 80329; 81003; 82947; 82985; 83036; 83605; 84443; 84484; 84702; 85025; 85379; 90853; 93005; 99222; 99231; 99232; 99233; 99238; A9270-GY; G0480; J7512

== ENCOUNTER 2017-09-25 22:03 | Emergency (ER) | payer OTHER ==
[2017-09-25] MEDS ORDERED: Morphine INJ* 4 MG/ML 1 ML CARPUJECT IV ONE (22:34)
[2017-09-25] MEDS ORDERED: Ondansetron INJ* 2 MG/ML VIAL IV ONE (22:35)
[2017-09-25 23:22] LABS: ABS Basophils 0.1 10^3/ul (0-0.2); ABS Eosinophils 0.2 10^3/ul (0-0.6); ABS Lymphocytes 4.4 10^3/ul (1.0-4.8); ABS Monocytes 1.3 10^3/ul (0-0.8); ABS Neutrophils 15.5 10^3/ul (1.5-7.7); ABS Nucleated RBC 0 10^3/ul; Eosinophil % 0.7 % (0-6); Hematocrit 35 % (35-47); Hemoglobin 11.6 g/dl (12.0-16.0); Lymphocyte % 20.3 % (25-47); Mean Corpuscular HGB Conc 34 g/dl (31-36); Mean Corpuscular Hemoglobin 29 pg (27-31); Mean Corpuscular Volume 86 fL (80-97); Mean Platelet Volume 6 um3 (7.4-10.4); Nucleated Red Blood Cells % 0; Platelet Count 400 10^3/ul (150-450); Red Blood Count 4.02 10^6/ul (4.0-5.4); Red Cell Distribution Width 13 % (10.5-15); White Blood Count 21.4 10^3/ul (3.5-10.8)
[2017-09-25 23:27] LABS: INR 0.98 (0.77-1.02)
[2017-09-25 23:29] LABS: EGFR Non-African American 123.2 (>60)
[2017-09-26] MEDS ORDERED: Iodixanol* (CONTRAST) 320 MG/ML 100 ML SDV IV ONE (00:06)
[2017-09-26] MEDS ORDERED: Morphine INJ* 4 MG/ML 1 ML CARPUJECT IV ONE ×2 (00:55→03:42)
[2017-09-26 04:15] VITALS: BP 119/80
--- NOTE | 2017-09-26 08:45 | RAD ---
INDICATION: Chest pain and elevated d-dimer. Surgical history includes cholecystectomy. COMPARISON: Similar CT examination dated November 29, 2016 TECHNIQUE: Axial source images were acquired following the administration of 96 mL Visipaque [address] angiographic technique. Coronal and sagittal reconstructed images were constructed and reviewed. FINDINGS: The bolus timing and streak artifact due to the patient's body habitus prevent evaluation of the pulmonary arteries beyond the right and left mainstem pulmonary arteries. There is no definite filling defect filling either the right mainstem pulmonary artery. There are no focal infiltrates or effusions. There are no pulmonary parenchymal masses. The heart is normal in size. There is no evidence of pericardial effusion. There is no evidence of aortic aneurysm or dissection. There is no mediastinal, hilar, or axillary lymphadenopathy. The visualized osseous structures appear normal. There are surgical clips in the gallbladder fossa consistent with a history of cholecystectomy. IMPRESSION: Due to poor bolus timing and the patient's large body habitus only the right mainstem pulmonary arteries are reliably evaluated and appear to be free of pulmonary emboli. The more distal lobar and segmental branches are not evaluated for pulmonary embolus on this CTA.
--- NOTE | 2017-09-26 09:54 | RAD ---
INDICATION: Chest pain COMPARISON: Chest x-ray dated August 05, 2017 TECHNIQUE: Single AP portable view of the chest was obtained. FINDINGS: Image quality is compromised due to the relative inferiority of a portable chest x-ray. There is also attenuated x-ray penetration overall due to the patient's body habitus. The heart and mediastinum exhibit normal size and contour. The lungs are grossly clear. There is no evidence of a large pleural effusion. Visualized bones are normal for the patient's age. IMPRESSION: No radiographic evidence for acute cardiopulmonary abnormality on this portable chest x-ray.
--- NOTE | 2017-10-08 05:25 | ED ---
Stephanie Richmond Edward, scribed for Navneet Puente MD on 09/25/17 at 2217 . HPI Chest Pain - HPI Summary HPI Summary: 37 y/o female BIBA c/o constant R sided CP starting 1.5 hours ago. The CP radiates to the L side of the chest. Pt has never had this pain before. The pain is described as sharp and like "someone sitting on her chest". Pain not alleviated by 2x NTG and ASA given by EMS. Pt also took metropolol, which did not alleviate symptoms either. Pain not aggravated or alleviated with position change. Associated sx: SOB, mild nausea. The pain is about the same now. Denies previous MT's. PMHx DM - on insulin pump, and tachycardia - takes metropolol. Denies swelling in legs, history of blood clots. Denies travel. Pt states she had control - Nexplanon injected in R arm. - History of Current Complaint Hx Obtained From: Patient Hx Last Menstrual Period: October 07 Onset/Duration: Started Hours Ago Chest Pain Location: Right Lateral Chest Pain Radiates: Yes Chest Pain Radiates To:: Other - L side chest Character: Sharp/Stabbing, Other: - "someone sitting on her chest" Aggravating Factor(s): Nothing Alleviating Factor(s): Nothing - Not alleviated by NTG and ASA Associated Signs and Symptoms: Positive: Shortness of Breath, Nausea - Additional Pertinent History Primary Care Physician: [id number] - Allergy/Home Medications Allergies/Adverse Reactions: Allergies Allergy/AdvReac Type Severity Reaction Status Date / Time asenapine Allergy Rash Verified 09/25/17 22:18 Sulfa (Sulfonamide Allergy Unknown Verified 09/25/17 22:18 Antibiotics) Reaction Details nalbuphine [From Nubain] AdvReac Rash Verified 09/25/17 22:18 paroxetine [From Paxil] AdvReac Vomiting Verified 09/25/17 22:18 tramadol AdvReac Rash Verified 09/25/17 22:18 Bee venom Allergy Anaphylatic Uncoded 09/25/17 22:18 Shock zepeda Allergy Nausea And Uncoded 09/25/17 22:18 Vomiting PMH/Surg Hx/FS Hx/Imm Hx Previously Healthy: No Endocrine/Hematology History: Reports: Hx Diabetes - type 1 - ON INSULIN Cardiovascular History: Reports: Hx Angina, Hx Hypercholesterolemia, Other Cardiovascular Problems/Disorders - vasculitis. tachycardia Denies: Hx Coronary Artery Disease, Hx Hypertension - ON BP MEDS FOR TACHY, Hx Myocardial Infarction, Hx Pacemaker/ICD, Hx Peripheral Vascular Disease, Hx Valvular Heart Disease Respiratory History: Reports: Hx Asthma Denies: Hx Chronic Obstructive Pulmonary Disease (COPD) GI History: Reports: Hx Crohn's Disease, Hx Gastroesophageal Reflux Disease, Hx Irritable Bowel, Other GI Disorders - gastroparesis History: Denies: Hx Dialysis, Hx Renal Disease, Other Problems/Disorders Musculoskeletal History: Denies: Hx Arthritis, Hx Osteoporosis Sensory History: Reports: Hx Contacts or Glasses Denies: Hx Legally Blind, Hx Deafness, Hx Hearing Aid Opthamlomology History: Reports: Hx Contacts or Glasses Denies: Hx Legally Blind Neurological History: Reports: Hx Headaches, Hx Migraine Denies: Hx Seizures, Hx Transient Ischemic Attacks (TIA) Psychiatric History: Reports: Hx Anxiety, Hx Depression, Hx Panic Disorder - PTSD, Hx Post Traumatic Stress Disorder, Hx Suicide Attempt, Other Psychiatric Issues/Disorders - Borderline Personality Disorder Denies: Hx Eating Disorder, Hx Bipolar Disorder - Surgical History Surgery Procedure, Year, and Place: Cholecystectomy;. Cardiac Catherterization- NO STENT; Infectious Disease History: Reports: Hx of Known/Suspected MRSA - treated. noncarrier now - Family History Known Family History: Positive: Cardiac Disease, Diabetes, Other - blood clots ( mother), pacemaker (father) Negative: Hypertension - Social History Alcohol Use: None Hx Substance Use: No Substance Use Type: Reports: Marijuana Hx Tobacco Use: Yes Smoking Status (MU): Light Every Day Tobacco Smoker Type: Cigarettes Amount Used/How Often: states that she smoked 5 cig.s per day, but is on Chantex , planning to quit Have You Smoked in the Last Year: Yes - states that she last smoked yesterday Review of Systems Constitutional: Negative Eyes: Negative ENT: Negative Positive: Chest Pain Positive: Shortness Of Breath Positive: Nausea Genitourinary: Negative Musculoskeletal: Negative Skin: Negative Neurological: Negative Psychological: Normal All Other Systems Reviewed And Are Negative: Yes Physical Exam - Summary Physical Exam Summary: Appearance: Well-appearing, Well-nourished. Obese. No acute distress. Skin: Warm Eyes: Normal ENT: Normal Neck: Supple, nontender Respiratory: Clear to auscultation Cardiovascular: Normal S1, S2. No murmurs. Normal distal pulses in tibial and radial bilaterally. Abdomen: Soft, nontender Musculoskeletal: Normal, Strength/ROM Intact Neurological: Normal, A&Ox3 Psychiatric: Normal Triage Information Reviewed: Yes Vital Signs On Initial Exam: Initial Vitals Temp Pulse Resp BP Pulse Ox 36.4 C 86 14 108/90 98 09/25/17 22:16 09/25/17 22:16 09/25/17 22:16 09/25/17 22:16 09/25/17 22:16 Vital Signs Reviewed: Yes Diagnostics - Vital Signs Vital Signs Temp Pulse Resp BP Pulse Ox 09/26/17 02:00 78 20 95 09/26/17 01:30 78 16 105/69 95 09/26/17 01:07 117/88 09/26/17 01:05 17 09/26/17 01:00 84 18 97 09/26/17 00:31 76 20 115/77 96 09/26/17 00:01 82 19 75/61 97 09/26/17 00:00 81 23 96 09/25/17 23:47 78 19 84/59 97 09/25/17 23:05 12 09/25/17 23:00 90 28 98 09/25/17 22:40 88 20 98 09/25/17 22:30 86 14 111/82 99 09/25/17 22:18 91 25 98 09/25/17 22:16 36.4 C 86 14 108/90 98 - Laboratory Lab Results: Lab Results 09/25/17 09/25/17 09/25/17 Range/Units 22:35 22:35 22:35 WBC 21.4 H (3.5-10.8) 10^3/ul RBC 4.02 (4.0-5.4) 10^6/ul Hgb 11.6 L (12.0-16.0) g/dl Hct 35 (35-47) % MCV 86 (80-97) fL MCH 29 (27-31) pg MCHC 34 (31-36) g/dl RDW 13 (10.5-15) % Plt Count 400 (150-450) 10^3/ul MPV 6 L (7.4-10.4) um3 Neut % (Auto) 72.5 (38-83) % Lymph % (Auto) 20.3 L (25-47) % Gilliam % (Auto) 6.0 (1-9) % Eos % (Auto) 0.7 (0-6) % Baso % (Auto) 0.5 (0-2) % Absolute Neuts (auto) 15.5 H (1.5-7.7) 10^3/ul Absolute Lymphs (auto) 4.4 (1.0-4.8) 10^3/ul Absolute Monos (auto) 1.3 H (0-0.8) 10^3/ul Absolute Eos (auto) 0.2 (0-0.6) 10^3/ul Absolute Basos (auto) 0.1 (0-0.2) 10^3/ul Absolute Nucleated RBC 0 10^3/ul Nucleated RBC % 0 INR (Anticoag Therapy) (0.77-1.02) APTT (26.0-36.3) seconds D-Dimer, Quantitative (Less Than 230) ng/mL Sodium 133 (133-145) mmol/L Potassium 3.7 (3.5-5.0) mmol/L Chloride 102 (101-111) mmol/L Carbon Dioxide 23 (22-32) mmol/L Anion Gap 8 (2-11) mmol/L BUN 11 (6-24) mg/dL Creatinine 0.56 (0.51-0.95) mg/dL Est GFR ( Amer) 158.4 (>60) Est GFR (Non-Af Amer) 123.2 (>60) BUN/Creatinine Ratio 19.6 (8-20) Glucose 253 H (70-100) mg/dL Lactic Acid (0.5-2.0) mmol/L Calcium 9.1 (8.6-10.3) mg/dL Magnesium 1.4 L (1.9-2.7) mg/dL Total Bilirubin 0.30 (0.2-1.0) mg/dL AST 11 L (13-39) U/L ALT 12 (7-52) U/L Alkaline Phosphatase 85 (34-104) U/L Troponin I 0.03 (<0.04) ng/mL B-Natriuretic Peptide 64 ( - 100) pg/mL Total Protein 7.3 (6.4-8.9) g/dL Albumin 3.4 (3.2-5.2) g/dL Globulin 3.9 (2-4) g/dL Albumin/Globulin Ratio 0.9 L (1-3) 09/25/17 09/25/17 09/26/17 Range/Units 22:35 22:35 02:25 WBC (3.5-10.8) 10^3/ul RBC (4.0-5.4) 10^6/ul Hgb (12.0-16.0) g/dl Hct (35-47) % MCV (80-97) fL MCH (27-31) pg MCHC (31-36) g/dl RDW (10.5-15) % Plt Count (150-450) 10^3/ul MPV (7.4-10.4) um3 Neut % (Auto) (38-83) % Lymph % (Auto) (25-47) % Gilliam % (Auto) (1-9) % Eos % (Auto) (0-6) % Baso % (Auto) (0-2) % Absolute Neuts (auto) (1.5-7.7) 10^3/ul Absolute Lymphs (auto) (1.0-4.8) 10^3/ul Absolute Monos (auto) (0-0.8) 10^3/ul Absolute Eos (auto) (0-0.6) 10^3/ul Absolute Basos (auto) (0-0.2) 10^3/ul Absolute Nucleated RBC 10^3/ul Nucleated RBC % INR (Anticoag Therapy) 0.98 (0.77-1.02) APTT 31.3 (26.0-36.3) seconds D-Dimer, Quantitative 255 H (Less Than 230) ng/mL Sodium (133-145) mmol/L Potassium (3.5-5.0) mmol/L Chloride (101-111) mmol/L Carbon Dioxide (22-32) mmol/L Anion Gap (2-11) mmol/L BUN (6-24) mg/dL Creatinine (0.51-0.95) mg/dL Est GFR ( Amer) (>60) Est GFR (Non-Af Amer) (>60) BUN/Creatinine Ratio (8-20) Glucose (70-100) mg/dL Lactic Acid 1.6 (0.5-2.0) mmol/L Calcium (8.6-10.3) mg/dL Magnesium (1.9-2.7) mg/dL Total Bilirubin (0.2-1.0) mg/dL AST (13-39) U/L ALT (7-52) U/L Alkaline Phosphatase (34-104) U/L Troponin I 0.01 (<0.04) ng/mL B-Natriuretic Peptide ( - 100) pg/mL Total Protein (6.4-8.9) g/dL Albumin (3.2-5.2) g/dL Globulin (2-4) g/dL Albumin/Globulin Ratio (1-3) Result Diagrams: 09/25/17 22:35 09/25/17 22:35 Lab Statement: Any lab studies that have been ordered have been reviewed, and results considered in the medical decision making process. - Radiology CXR Xray Interpretation: No Acute Changes - DIFFUSE CONGESTION BILATERALLY, UNCHANGED FROM PRIORS Radiology Interpretation Completed By: ED Physician - CT CTA Chest CT Interpretation Completed By: Radiologist - Limited exam. Small pulmonary emboli cannot be excluded due to poor pulmonary artery opacification. ED physician has reviewed this report. - EKG 1 EKG Interpretation: 22:31 - SR @ [address] changes. No ectopy Chest Pain Course/Dx - Course Assessment/Plan: CXR SHOWS DIFFUSE CONGESTION BILATERALLY, UNCHANGED FROM PRIORS. - Diagnoses Provider Diagnoses: Chest pain Discharge - Discharge Plan Condition: Improved Disposition: HOME Patient Education Materials: Chest Pain (ED) Referrals: Kimberlyn Dhillon MD [Primary Care Provider] - Davion Wilkerson MD [Medical Doctor] - Additional Instructions: PLEASE MAKE AN APPOINTMENT FIRST THING IN THE MORNING TO BE SEEN BY A TAR DISTILLATION SUPERVISOR WITHIN 3-7 DAYS PLEASE RETURN IMMEDIATELY TO THE ER IF YOU HAVE ANY WORSENING OR CONCERNING SYMPTOMS PLEASE MAKE AN APPOINTMENT TO BE SEEN BY YOUR PRIMARY CARE DOCTOR WITHIN 1 WEEK The documentation as recorded by the Stephanie ruelas Edward accurately reflects the service I personally performed and the decisions made by me, Navneet Puente MD.
== END 2017-09-26 04:13 | disposition home or self-care (01) ==
LOC: ED 22:03
DX: R07.9 Chest pain, unspecified (principal); R06.02 Shortness of breath; R11.0 Nausea; E10.8 Type 1 diabetes mellitus with unspecified complications; Z79.4 Long term (current) use of insulin; F17.210 Nicotine dependence, cigarettes, uncomplicated
CPT/HCPCS: 36415; 71045; 71275; 80053; 83605; 83735; 83880; 84484; 85025; 85379; 85610; 85730; 93005; 99284; J2270; J2405; Q9967

== ENCOUNTER 2017-10-01 11:55 | Emergency (ER) | payer OTHER ==
[2017-10-01] MEDS ORDERED: Morphine INJ* 4 MG/ML 1 ML CARPUJECT IV ONE (12:14)
[2017-10-01 12:46] LABS: ABS Basophils 0.1 10^3/ul (0-0.2); ABS Eosinophils 0.1 10^3/ul (0-0.6); ABS Lymphocytes 2.3 10^3/ul (1.0-4.8); ABS Monocytes 1.4 10^3/ul (0-0.8); ABS Neutrophils 13.2 10^3/ul (1.5-7.7); ABS Nucleated RBC 0 10^3/ul; Eosinophil % 0.8 % (0-6); Hematocrit 37 % (35-47); Hemoglobin 12.1 g/dl (12.0-16.0); Lymphocyte % 13.4 % (25-47); Mean Corpuscular HGB Conc 33 g/dl (31-36); Mean Corpuscular Hemoglobin 29 pg (27-31); Mean Corpuscular Volume 87 fL (80-97); Mean Platelet Volume 7 um3 (7.4-10.4); Nucleated Red Blood Cells % 0; Platelet Count 391 10^3/ul (150-450); Red Blood Count 4.23 10^6/ul (4.0-5.4); Red Cell Distribution Width 14 % (10.5-15); White Blood Count 17.2 10^3/ul (3.5-10.8)
[2017-10-01 13:03] LABS: EGFR Non-African American 147.2 (>60)
[2017-10-01] MEDS ORDERED: Iodixanol* (CONTRAST) 320 MG/ML 100 ML SDV IV ONE (13:19)
--- NOTE | 2017-10-01 13:21 | RAD ---
INDICATION: Left chest pain COMPARISON: September 25, 2017 TECHNIQUE: AP seated and lateral views were obtained. FINDINGS: Bones/Soft Tissues: There are no acute bony findings. Cardiomediastinal: The cardiomediastinal silhouette is normal. Lungs: There are no infiltrates. Pleura: There are no pleural effusions. Other: None IMPRESSION: NO ACTIVE DISEASE.
[2017-10-01] MEDS ORDERED: NS 0.9% 1000 ML* 1,000 ML IV ONE (13:35)
--- NOTE | 2017-10-01 14:41 | RAD ---
HISTORY: Pleuritic chest pain, elevated d-dimer COMPARISONS: None relevant TECHNIQUE: Multiple transverse and longitudinal ultrasound images were obtained of the bilateral lower extremities from the level of the common femoral vein inferiorly through to the infrapopliteal veins using grayscale, color Doppler, and spectral Doppler imaging with and without compression and with augmentation. FINDINGS: VEINS: The venous system of the bilateral lower extremities is compressible throughout its course, with normal flow on color Doppler imaging and normal response to augmentation on spectral Doppler imaging. SOFT TISSUES: Unremarkable. OTHER FINDINGS: None. IMPRESSION: NO RIGHT LOWER EXTREMITY DEEP VEIN THROMBOSIS. NO LEFT LOWER EXTREMITY DEEP VEIN THROMBOSIS
[2017-10-01 15:16] LABS: Urine Appearance Clear; Urine Blood Negative (Negative); Urine Color Yellow; Urine Ketones Negative (Negative); Urine Protein Negative (Negative); Urine Specific Gravity 1.006 (1.010-1.030); Urine Urobilinogen Negative (Negative)
[2017-10-01] MEDS ORDERED: Hydrocortisone INJ* 100 MG VIAL IV ONE (15:55)
--- NOTE | 2017-10-01 17:23 | ED ---
Nain Richmond Jennifer, scribed for Aquilino Aragon MD on 10/01/17 at 1213 . HPI Chest Pain - HPI Summary HPI Summary: The patient is a 37 year old female who had chest pain beginning a week ago that is worsening now. She was diagnosed with the flu yesterday. She describes that the chest pain is a sharp pain that is currently an 8/10 and radiates to her back and shoulders. The pain is constant and nothing alleviates or aggravates it. The patient complains of fever, productive cough, shortness of breath, abdominal pain, nausea, vomiting this morning, numbness, and loss of appetite. She adds that the last time she ate was three days ago and that she is not usually short of breath with activity. The patient denies dysuria and sores on the feet. She has a history of diabetes and has an insulin pump. - History of Current Complaint Chief Complaint: EDChestWallPain Time Seen by Provider: 10/01/17 12:03 Hx Obtained From: Patient Hx Last Menstrual Period: October 07 Onset/Duration: Started Weeks Ago - 1 week, Still Present, Worse Since Timing: Constant Initial Severity: Mild Current Severity: Mild Chest Pain Radiates: Yes Chest Pain Radiates To:: Back, Shoulder Character: Sharp/Stabbing Aggravating Factor(s): Nothing Alleviating Factor(s): Nothing Associated Signs and Symptoms: Positive: Other: - fever, productive cough, shortness of breath, abdominal pain, nausea, vomiting, numbness, loss of appetite. NEGATIVE: dysuria, sores on feet - Additional Pertinent History Primary Care Physician: [id number] - Allergy/Home Medications Allergies/Adverse Reactions: Allergies Allergy/AdvReac Type Severity Reaction Status Date / Time asenapine Allergy Rash Verified 09/25/17 22:18 Sulfa (Sulfonamide Allergy Unknown Verified 09/25/17 22:18 Antibiotics) Reaction Details nalbuphine [From Nubain] AdvReac Rash Verified 09/25/17 22:18 paroxetine [From Paxil] AdvReac Vomiting Verified 09/25/17 22:18 tramadol AdvReac Rash Verified 09/25/17 22:18 Bee venom Allergy Anaphylatic Uncoded 09/25/17 22:18 Shock zepeda Allergy Nausea And Uncoded 09/25/17 22:18 Vomiting PMH/Surg Hx/FS Hx/Imm Hx Endocrine/Hematology History: Reports: Hx Diabetes - type 1 - ON INSULIN Cardiovascular History: Reports: Hx Angina, Hx Hypercholesterolemia, Other Cardiovascular Problems/Disorders - vasculitis. tachycardia Denies: Hx Coronary Artery Disease, Hx Hypertension - ON BP MEDS FOR TACHY, Hx Myocardial Infarction, Hx Pacemaker/ICD, Hx Peripheral Vascular Disease, Hx Valvular Heart Disease Respiratory History: Reports: Hx Asthma Denies: Hx Chronic Obstructive Pulmonary Disease (COPD) GI History: Reports: Hx Crohn's Disease, Hx Gastroesophageal Reflux Disease, Hx Irritable Bowel, Other GI Disorders - gastroparesis History: Denies: Hx Dialysis, Hx Renal Disease, Other Problems/Disorders Musculoskeletal History: Denies: Hx Arthritis, Hx Osteoporosis Sensory History: Reports: Hx Contacts or Glasses Denies: Hx Legally Blind, Hx Deafness, Hx Hearing Aid Opthamlomology History: Reports: Hx Contacts or Glasses Denies: Hx Legally Blind Neurological History: Reports: Hx Headaches, Hx Migraine Denies: Hx Seizures, Hx Transient Ischemic Attacks (TIA) Psychiatric History: Reports: Hx Anxiety, Hx Depression, Hx Panic Disorder - PTSD, Hx Post Traumatic Stress Disorder, Hx Suicide Attempt, Other Psychiatric Issues/Disorders - Borderline Personality Disorder Denies: Hx Eating Disorder, Hx Bipolar Disorder - Surgical History Surgery Procedure, Year, and Place: Cholecystectomy;. 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 noncarrier now - Family History Known Family History: Positive: Cardiac Disease, Diabetes, Other - blood clots ( mother), pacemaker (father) Negative: Hypertension - Social History Alcohol Use: None Hx Substance Use: No Substance Use Type: Reports: Marijuana Hx Tobacco Use: Yes Smoking Status (MU): Light Every Day Tobacco Smoker - Smokes 5 cigarettes a day Type: Cigarettes Amount Used/How Often: states that she smoked 5 cig.s per day, but is on Chantex , planning to quit Have You Smoked in the Last Year: Yes - states that she last smoked yesterday Review of Systems Constitutional: Negative - Sores on feet Positive: Fever, Other - Loss of appetite Positive: Chest Pain Positive: Shortness Of Breath, Cough Positive: Abdominal Pain, Vomiting, Nausea Negative: dysuria All Other Systems Reviewed And Are Negative: Yes Physical Exam - Summary Physical Exam Summary: Appearance: Looks cushingoid, no acute distress, morbidly obese Skin: Warm, Dry. Skin remarkable for multiple ecchymosis, scar Eyes: Normal, PERRL, EOMI, sclera anicteric ENT: Normal Neck: Supple, nontender Respiratory: Rales at left base Cardiovascular: Distant heart sounds, otherwise normal Abdomen: Soft, mild tenderness in suprapubic area, no organomegaly. Insulin pump in place Bowel sounds: Present Extremities: feet clear of ulcers, Athletes foot Musculoskeletal: Normal, Strength/ROM Intact, no edema, pulses symmetrical Neurological: Normal, A&Ox3, cranial nerves II-XII WNL, follows commands, gait not tested, sensation intact to pin and light touch Psychiatric: affect normal, behavior appropriate, dressed appropriately, judgment intact Triage Information Reviewed: Yes Vital Signs Reviewed: Yes Diagnostics - Laboratory Result Diagrams: 10/01/17 12:20 10/01/17 12:20 Lab Statement: Any lab studies that have been ordered have been reviewed, and results considered in the medical decision making process. - Radiology CXR Xray Interpretation: No Acute Changes - NO ACTIVE DISEASE. Dr. Aragon has reviewed this report. Radiology Interpretation Completed By: Radiologist - EKG 13:16 Cardiac Rate: NL EKG Rhythm: Sinus Rhythm - 71 BPM Ectopy: None - Additional Comments Diagnostic Additional Comments: Venous Doppler Study at 14:33 of the Lower extremity veins bilateral. IMPRESSION: NO RIGHT LOWER EXTREMITY DEEP VEIN THROMBOSIS. NO LEFT LOWER EXTREMITY DEEP VEIN THROMBOSIS. Dr. Aragon has reviewed this report. Chest Pain Course/Dx - Course Assessment/Plan: The patient is a 37 year old female who had chest pain beginning a week ago that is worsening now. In the ED course the patient was given Morphine, IV fluids, and Iodixanol. Bloodwork and urinalysis were obtained. CXR, EKG, and Venous Doppler study were obtained. The patient is diagnosed with atypical Left sided chest pain. The patient had an episode of hypotension. I believe she is adrenally insufficient, so she will be given steroids. The patient is instructed to follow up with primary care. - Diagnoses Provider Diagnoses: atypical left-sided chest pain Discharge - Discharge Plan Condition: Stable Disposition: HOME Referrals: Kimberlyn Dhillon MD [Primary Care Provider] - 3 Days Additional Instructions: Follow up with your primary care physician in three days. RETURN TO THE EMERGENCY DEPARTMENT FOR CHANGING OR WORSENING SYMPTOMS. The documentation as recorded by the Nain ruelas Jennifer accurately reflects the service I personally performed and the decisions made by me, Aquilino Aragon MD.
[2017-10-01 17:24] VITALS: BP 115/73
== END 2017-10-01 16:27 | disposition home or self-care (01) ==
LOC: ED 11:55
DX: R07.89 Other chest pain (principal); F17.210 Nicotine dependence, cigarettes, uncomplicated; E10.9 Type 1 diabetes mellitus without complications; Z79.4 Long term (current) use of insulin; I10 Essential (primary) hypertension; E78.00 Pure hypercholesterolemia, unspecified; K21.9 Gastro-esophageal reflux disease without esophagitis; K50.90 Crohn's disease, unspecified, without complications
CPT/HCPCS: 36415; 71046; 80053; 81003; 82533; 85025; 85379; 93005; 93970; 96360; 96374; 96375; 99285; J1720; J2270

== ENCOUNTER 2017-10-05 19:38 | Emergency (ER) | payer OTHER ==
[2017-10-05] MEDS ORDERED: NS 0.9% 1000 ML* 1,000 ML IV ONE (20:09)
[2017-10-05] MEDS ORDERED: Metoclopramide IV* 5 MG/ML 2 ML VIAL IV SLOW PU ONE (20:09)
[2017-10-05] MEDS ORDERED: Ondansetron INJ* 2 MG/ML VIAL ONE (20:54)
[2017-10-05] MEDS ORDERED: Ondansetron INJ* 2 MG/ML VIAL IV ONE (20:57)
--- NOTE | 2017-10-05 21:10 | RAD ---
INDICATION: Cough COMPARISON: Chest x-ray October 01, 2017 TECHNIQUE: Single AP portable view of the chest was obtained. FINDINGS: Image quality is compromised due to the relative inferiority of a portable chest x-ray. The heart and mediastinum exhibit normal size and contour. The lungs are grossly clear. There is no evidence of a large pleural effusion. Visualized bones are normal for the patient's age. IMPRESSION: No radiographic evidence for acute cardiopulmonary abnormality on this portable chest x-ray.
[2017-10-05 21:27] LABS: ABS Basophils 0.1 10^3/ul (0-0.2); ABS Eosinophils 0 10^3/ul (0-0.6); ABS Lymphocytes 3.1 10^3/ul (1.0-4.8); ABS Monocytes 1.3 10^3/ul (0-0.8); ABS Neutrophils 16.4 10^3/ul (1.5-7.7); ABS Nucleated RBC 0 10^3/ul; Eosinophil % 0.1 % (0-6); Hematocrit 34 % (35-47); Hemoglobin 11.5 g/dl (12.0-16.0); Lymphocyte % 14.8 % (25-47); Mean Corpuscular HGB Conc 34 g/dl (31-36); Mean Corpuscular Hemoglobin 29 pg (27-31); Mean Corpuscular Volume 87 fL (80-97); Mean Platelet Volume 6 um3 (7.4-10.4); Nucleated Red Blood Cells % 0; Platelet Count 414 10^3/ul (150-450); Red Blood Count 3.97 10^6/ul (4.0-5.4); Red Cell Distribution Width 14 % (10.5-15); White Blood Count 20.9 10^3/ul (3.5-10.8)
[2017-10-05 22:03] LABS: EGFR Non-African American 128.5 (>60)
[2017-10-05] MEDS ORDERED: Insulin REGULAR(*) 1 UNITS UNIT IV PUSH ONE (22:59)
[2017-10-05 23:14] VITALS: BP 119/64
--- NOTE | 2017-10-05 23:36 | ED ---
James Richmond Thomas, scribed for Kirill Green MD on 10/05/17 at 2038 . Influenza-Like Illness - HPI Summary HPI Summary: The patient is a 37 year old female presenting with cough, chest pain, vomiting , and fever for the last 10 days. The patient reports she was diagnosed with influenza recently, although she claims that for this she was given a script of antibiotics. She denies diarrhea. The patient has been evaluated at [facility] twice in the last ten days. Previous documentation was reviewed. - History of Current Complaint Chief Complaint: EDFluSymptoms Time Seen by Provider: 10/05/17 19:57 Hx Obtained From: Patient Onset/Duration: Lasting Days - 10, Still Present Severity: Moderate Associated Signs & Symptoms: Fever, Cough, Vomiting Related Hx: Possible Flu/Infectious Exposure - Allergy/Home Medications Allergies/Adverse Reactions: Allergies Allergy/AdvReac Type Severity Reaction Status Date / Time asenapine Allergy Rash Verified 09/25/17 22:18 Sulfa (Sulfonamide Allergy Unknown Verified 09/25/17 22:18 Antibiotics) Reaction Details nalbuphine [From Nubain] AdvReac Rash Verified 09/25/17 22:18 paroxetine [From Paxil] AdvReac Vomiting Verified 09/25/17 22:18 tramadol AdvReac Rash Verified 09/25/17 22:18 Bee venom Allergy Anaphylatic Uncoded 09/25/17 22:18 Shock zepeda Allergy Nausea And Uncoded 09/25/17 22:18 Vomiting PMH/Surg Hx/FS Hx/Imm Hx Endocrine/Hematology History: Reports: Hx Diabetes - type 1 - ON INSULIN Cardiovascular History: Reports: Hx Angina, Hx Hypercholesterolemia, Other Cardiovascular Problems/Disorders - vasculitis. tachycardia Denies: Hx Coronary Artery Disease, Hx Hypertension - ON BP MEDS FOR TACHY, Hx Myocardial Infarction, Hx Pacemaker/ICD, Hx Peripheral Vascular Disease, Hx Valvular Heart Disease Respiratory History: Reports: Hx Asthma Denies: Hx Chronic Obstructive Pulmonary Disease (COPD) GI History: Reports: Hx Crohn's Disease, Hx Gastroesophageal Reflux Disease, Hx Irritable Bowel, Other GI Disorders - gastroparesis History: Denies: Hx Dialysis, Hx Renal Disease, Other Problems/Disorders Musculoskeletal History: Denies: Hx Arthritis, Hx Osteoporosis Sensory History: Reports: Hx Contacts or Glasses Denies: Hx Legally Blind, Hx Deafness, Hx Hearing Aid Opthamlomology History: Reports: Hx Contacts or Glasses Denies: Hx Legally Blind Neurological History: Reports: Hx Headaches, Hx Migraine Denies: Hx Seizures, Hx Transient Ischemic Attacks (TIA) Psychiatric History: Reports: Hx Anxiety, Hx Depression, Hx Panic Disorder - PTSD, Hx Post Traumatic Stress Disorder, Hx Suicide Attempt, Other Psychiatric Issues/Disorders - Borderline Personality Disorder Denies: Hx Eating Disorder, Hx Bipolar Disorder - Surgical History Surgery Procedure, Year, and Place: Cholecystectomy;. Cardiac Catherterization- NO STENT; - Immunization History Date of Tetanus Vaccine: utd Date of Influenza Vaccine: fall 2016 Infectious Disease History: No Infectious Disease History: Reports: Hx of Known/Suspected MRSA - treated. noncarrier now Denies: Traveled Outside the [place] in Last 30 Days - Family History Known Family History: Positive: Cardiac Disease, Diabetes, Other - blood clots ( mother), pacemaker (father) Negative: Hypertension - Social History Alcohol Use: None Hx Substance Use: No Substance Use Type: Reports: Marijuana Hx Tobacco Use: Yes Smoking Status (MU): Light Every Day Tobacco Smoker Type: Cigarettes Amount Used/How Often: states that she smoked 5 cig.s per day, but is on Chantex , planning to quit Have You Smoked in the Last Year: Yes - states that she last smoked yesterday Review of Systems Positive: Fever Positive: Chest Pain Positive: Cough Positive: Vomiting. Negative: Diarrhea All Other Systems Reviewed And Are Negative: Yes Physical Exam - Summary Physical Exam Summary: VITAL SIGNS: Reviewed. GENERAL: Patient is a morbidly obese FEMALE who is lying comfortable in the stretcher. Patient is not in any acute respiratory distress. HEAD AND FACE: No signs of trauma. No ecchymosis, hematomas or skull depressions. No sinus tenderness. EYES: PERRLA, EOMI x 2, No injected conjunctiva, no nystagmus. EARS: Hearing grossly intact. Ear canals and tympanic membranes are within normal limits. MOUTH: Oropharynx within normal limits. NECK: Supple, trachea is midline, no adenopathy, no JVD, no carotid bruit, no c- spine tenderness, neck with full ROM. CHEST: Symmetric, no tenderness at palpation LUNGS: Decreased breath sounds bilaterally. CVS: Regular rate and rhythm, S1 and S2 present, no murmurs or gallops appreciated. ABDOMEN: Soft, non-tender. No signs of distention. No rebound no guarding, and no masses palpated. Bowel sounds are normal. EXTREMITIES: FROM in all major joints, no edema, no cyanosis or clubbing. NEURO: Alert and oriented x 3. No acute neurological deficits. Speech is normal and follows commands. SKIN: Dry and warm Triage Information Reviewed: Yes Vital Signs On Initial Exam: Initial Vitals Temp Pulse Resp BP Pulse Ox 97.5 F 90 18 123/75 98 10/05/17 19:53 10/05/17 19:53 10/05/17 19:53 10/05/17 19:53 10/05/17 19:53 Vital Signs Reviewed: Yes Diagnostics - Vital Signs Vital Signs Temp Pulse Resp BP Pulse Ox 10/05/17 19:53 97.5 F 90 18 123/75 98 - Laboratory Result Diagrams: 10/05/17 21:15 10/05/17 21:15 Lab Statement: Any lab studies that have been ordered have been reviewed, and results considered in the medical decision making process. - Radiology CXR Xray Interpretation: No Acute Changes - No radiographic evidence for acute cardiopulmonary abnormality on this portable chest x-ray. Dr. Green has reviewed this report. Radiology Interpretation Completed By: Radiologist Flu Symptom Course/Dx - Course Assessment/Plan: The patient is a 37 year old female presenting with cough, chest pain, vomiting, and fever for the last 10 days. Bloodwork was obtained. Influenza A and B are negative. CXR is negative. The patient was given Reglan, IV fluids, insulin, and Zofran. The patient is diagnosed with viral syndrome and hyperglycemia. Patient will follow up with primary care. - Diagnoses Provider Diagnoses: Viral syndrome, Hyperglycemia Discharge - Discharge Plan Condition: Stable Disposition: HOME Patient Education Materials: Viral Syndrome (ED), Diabetic Hyperglycemia (ED) Referrals: Kimberlyn Dhillon MD [Primary Care Provider] - 3 Days Additional Instructions: Follow up with your primary care physician in three days. Return to the emergency department for any new or worsening symptoms. The documentation as recorded by the James ruelas Thomas accurately reflects the service I personally performed and the decisions made by Peter bustillos Abdul, MD.
== END 2017-10-05 23:31 | disposition home or self-care (01) ==
LOC: ED 19:38
DX: B34.9 Viral infection, unspecified (principal); E11.65 Type 2 diabetes mellitus with hyperglycemia; F17.210 Nicotine dependence, cigarettes, uncomplicated; Z88.2 Allergy status to sulfonamides; Z88.8 Allergy status to other drugs, medicaments and biological substances
CPT/HCPCS: 36415; 71045; 80053; 83605; 85025; 86140; 87040; 87502; 96361; 96374; 96375; 99282; J2405; J2765

== ENCOUNTER 2017-10-14 17:16 | Emergency (ER) | payer OTHER ==
[2017-10-14] MEDS ORDERED: Ondansetron INJ* 2 MG/ML VIAL IV ONE (18:23)
[2017-10-14] MEDS ORDERED: NS 0.9% 1000 ML* 1,000 ML IV ONE (18:23)
[2017-10-14 18:36] LABS: ABS Basophils 0.3 10^3/ul (0-0.2); ABS Eosinophils 0.1 10^3/ul (0-0.6); ABS Lymphocytes 2.4 10^3/ul (1.0-4.8); ABS Monocytes 1.1 10^3/ul (0-0.8); ABS Nucleated RBC 0 10^3/ul; Eosinophil % 0.2 % (0-6); Hematocrit 40 % (35-47); Hemoglobin 13.3 g/dl (12.0-16.0); Lymphocyte % 10.3 % (25-47); Mean Corpuscular HGB Conc 33 g/dl (31-36); Mean Corpuscular Hemoglobin 29 pg (27-31); Mean Corpuscular Volume 87 fL (80-97); Mean Platelet Volume 6 um3 (7.4-10.4); Nucleated Red Blood Cells % 0; Platelet Count 477 10^3/ul (150-450); Red Blood Count 4.66 10^6/ul (4.0-5.4); Red Cell Distribution Width 14 % (10.5-15); White Blood Count 22.8 10^3/ul (3.5-10.8)
--- NOTE | 2017-10-14 18:36 | ED ---
GI/ HPI - HPI Summary HPI Summary: 37-year-old female presents with abdominal pain, nausea, vomiting, and diarrhea for the past week and a half. She denies any fevers. She states she has not been able to keep anything down. She has been using zofran with minimal relief. She states she has lost 20 pounds. He states his symptoms symptoms are similar to when she had H. pylori. She to follow with GI with normal colonoscopy. pain is greatest in the midline. She denies any dysuria. She denies any vaginal discharge. Denies any pelvic pain. Seen here multiple times for abd pain in the past. She has had her gallbladder removed in the past. She has a history of diabetes. - History of Current Complaint Chief Complaint: EDAbdPain Time Seen by Provider: 10/14/17 17:39 Stated Complaint: ABD PAIN Hx Last Menstrual Period: October 07 Pain Intensity: 10 - Additional Pertinent History Primary Care Physician: [id number] - Allergy/Home Medications Allergies/Adverse Reactions: Allergies Allergy/AdvReac Type Severity Reaction Status Date / Time Adhesive Tape Allergy Rash Verified 10/11/17 17:20 asenapine Allergy Rash Verified 10/11/17 16:20 lurasidone [From Latuda] Allergy Hives Verified 10/11/17 17:20 metoclopramide [From Reglan] Allergy Abdominal Verified 10/11/17 17:20 Pain paclitaxel [From Taxol] Allergy Hives Verified 10/11/17 17:20 Sulfa (Sulfonamide Allergy Unknown Verified 10/11/17 16:20 Antibiotics) Reaction Details sulfamethoxazole Allergy Hives Verified 10/11/17 17:20 [From Bactrim] trimethoprim [From Bactrim] Allergy Hives Verified 10/11/17 17:20 nalbuphine [From Nubain] AdvReac Rash Verified 10/11/17 16:20 paroxetine [From Paxil] AdvReac Vomiting Verified 10/11/17 16:20 tramadol AdvReac Rash Verified 10/11/17 16:20 ARSENAPINE Allergy Hives Uncoded 10/11/17 17:20 Bee venom Allergy Anaphylatic Uncoded 10/11/17 16:20 Shock zepeda Allergy Nausea And Uncoded 10/11/17 16:20 Vomiting Home Medications: Home Medications Acetaminophen TAB* [Tylenol TAB*] 650 mg PO TID 10/14/17 [History Confirmed ] Albuterol HFA INHALER* [Ventolin HFA Inhaler*] 2 puff INH Q6H PRN 10/14/17 [ History Confirmed 10/14/17] Beclomethasone 80 MCG MDI(NF) [Qvar 80 MCG MDI(NF)] 2 puff INH DAILY 10/14/17 [ History Confirmed 10/14/17] Brexpiprazole (NF) [Rexulti 0.5 mg tab (NF)] 0.5 mg PO DAILY 10/14/17 [History Confirmed 10/14/17] Budesonide Flexhaler 180 (NF) [Pulmicort Flexhaler 180 mcg/act (NF)] 180 mcg IN BID 10/14/17 [History Confirmed 10/14/17] Butalbital/Acetaminophen [Butalbital/Acetaminophen 50-325 mg] 1 tab PO DAILY PRN 10/14/17 [History Confirmed 10/14/17] Calcium Carbonate CHEW TAB* [Tums*] 500 mg PO DAILY PRN 10/14/17 [History Confirmed 10/14/17] Cholecalciferol TAB* [Vitamin D TAB*] 2,000 units PO DAILY 10/14/17 [History Confirmed 10/14/17] Dextrose/Fructose/Sod Citrat [Nauzene Tablet Chew] 1 each PO DAILY PRN 10/14/17 [History Confirmed 10/14/17] Dicyclomine CAP* [Bentyl CAP*] 10 mg PO BID 10/14/17 [History Confirmed 10/14/17 ] Ferrous Sulfate TAB* 325 mg PO DAILY 10/14/17 [History Confirmed 10/14/17] Gabapentin CAP(*) [Neurontin 300 CAP(*)] 600 mg PO BEDTIME 10/14/17 [History Confirmed 10/14/17] Insulin Glargine,Hum.rec.anlog [Basaglar Kwikpen] 120 unit SC BEDTIME 10/14/17 [ History Confirmed 10/14/17] L.acidoph,Paracasei, B.lactis [Probiotic] 1 each PO DAILY 10/14/17 [History Confirmed 10/14/17] LORazepam TAB(*) [Ativan 1 MG TAB (*)] 1 mg PO BID PRN 10/14/17 [History Confirmed 10/14/17] Loperamide CAP* [Imodium CAP*] 2 mg PO BID PRN 10/14/17 [History Confirmed 10/14] Melatonin (NF) 3 mg PO DAILY 10/14/17 [History Confirmed 10/14/17] Mirtazapine TAB* [Remeron TAB*] 22.5 mg PO DAILY 10/14/17 [History Confirmed ] Naproxen TAB* [Naprosyn 250 mg TAB*] 220 mg PO BID PRN 10/14/17 [History Confirmed 10/14/17] Simethicone TAB* [Mylicon TAB*] 80 mg PO TID 10/14/17 [History Confirmed ] SitaGLIPtin (NF) [Januvia (NF)] 100 mg PO DAILY 10/14/17 [History Confirmed ] Sucralfate TAB* [Carafate*] 1 gm PO QID 10/14/17 [History Confirmed 10/14/17] Topiramate TAB(*) [Topamax 25 MG tab] 50 mg PO TID 10/14/17 [History Confirmed 10/14/17] Zolpidem TAB* [Ambien TAB*] 10 mg PO BEDTIME 10/14/17 [History Confirmed ] diPHENhydraMINE PO* [Benadryl PO 25 MG TAB*] 25 mg PO DAILY PRN 10/14/17 [ History Confirmed 10/14/17] metroNIDAZOLE [Metronidazole 0.75 % gel] 1 applic TOPICAL DAILY PRN 10/14/17 [ History Confirmed 10/14/17] oxyCODONE/Acetam5/325MG PREPAK [Percocet 5/325 TAB*] 1 tab PO Q4H PRN 10/14/17 [ History Confirmed 10/14/17] predniSONE TAB* [Deltasone TAB*] 7.5 mg PO DAILY 10/14/17 [History Confirmed ] PMH/Surg Hx/FS Hx/Imm Hx Endocrine/Hematology History: Reports: Hx Diabetes - type 1 - ON INSULIN Cardiovascular History: Reports: Hx Angina, Hx Hypercholesterolemia, Other Cardiovascular Problems/Disorders - vasculitis. tachycardia Denies: Hx Coronary Artery Disease, Hx Hypertension - ON BP MEDS FOR TACHY, Hx Myocardial Infarction, Hx Pacemaker/ICD, Hx Peripheral Vascular Disease, Hx Valvular Heart Disease Respiratory History: Reports: Hx Asthma Denies: Hx Chronic Obstructive Pulmonary Disease (COPD) GI History: Reports: Hx Crohn's Disease, Hx Gastroesophageal Reflux Disease, Hx Irritable Bowel, Other GI Disorders - gastroparesis History: Denies: Hx Dialysis, Hx Renal Disease, Other Problems/Disorders Musculoskeletal History: Denies: Hx Arthritis, Hx Osteoporosis Sensory History: Reports: Hx Contacts or Glasses Denies: Hx Legally Blind, Hx Deafness, Hx Hearing Aid Opthamlomology History: Reports: Hx Contacts or Glasses Denies: Hx Legally Blind Neurological History: Reports: Hx Headaches, Hx Migraine Denies: Hx Seizures, Hx Transient Ischemic Attacks (TIA) Psychiatric History: Reports: Hx Anxiety, Hx Depression, Hx Panic Disorder - PTSD, Hx Post Traumatic Stress Disorder, Hx Suicide Attempt, Other Psychiatric Issues/Disorders - Borderline Personality Disorder Denies: Hx Eating Disorder, Hx Bipolar Disorder - Surgical History Surgery Procedure, Year, and Place: Cholecystectomy;. Cardiac Catherterization- NO STENT; - Immunization History Date of Tetanus Vaccine: utd Date of Influenza Vaccine: fall 2016 Infectious Disease History: No Infectious Disease History: Reports: Hx of Known/Suspected MRSA - treated. noncarrier now Denies: Traveled Outside the [place] in Last 30 Days - Family History Known Family History: Positive: Cardiac Disease, Diabetes, Other - blood clots ( mother), pacemaker (father) Negative: Hypertension - Social History Alcohol Use: None Hx Substance Use: No Substance Use Type: Reports: Marijuana Hx Tobacco Use: Yes Smoking Status (MU): Light Every Day Tobacco Smoker Type: Cigarettes Amount Used/How Often: states that she smoked 5 cig.s per day, but is on Chantex , planning to quit Have You Smoked in the Last Year: Yes - states that she last smoked yesterday Review of Systems Negative: Fever Negative: Chest Pain Negative: Shortness Of Breath Positive: Abdominal Pain, Vomiting, Diarrhea, Nausea All Other Systems Reviewed And Are Negative: Yes Physical Exam Triage Information Reviewed: Yes Vital Signs On Initial Exam: Initial Vitals Temp Pulse Resp BP Pulse Ox 98.7 F 69 16 112/75 96 10/14/17 17:35 10/14/17 17:35 10/14/17 17:35 10/14/17 17:35 10/14/17 17:35 Vital Signs Reviewed: Yes Appearance: Positive: Well-Appearing Skin: Positive: Warm, Dry Head/Face: Positive: Normal Head/Face Inspection Eyes: Positive: Normal, Conjunctiva Clear Respiratory/Lung Sounds: Positive: Clear to Auscultation, Breath Sounds Present Cardiovascular: Positive: Normal, RRR Abdomen Description: Positive: Soft, Other: - mild diffuse abdominal tenderness Bowel Sounds: Positive: Present Musculoskeletal: Positive: Normal Neurological: Positive: Normal Psychiatric: Positive: Normal Diagnostics - Vital Signs Vital Signs Temp Pulse Resp BP Pulse Ox 10/14/17 17:35 98.7 F 69 16 112/75 96 - Laboratory Result Diagrams: 10/14/17 18:27 10/14/17 19:20 Lab Statement: Any lab studies that have been ordered have been reviewed, and results considered in the medical decision making process. - CT abd CT Interpretation: No Acute Changes CT Interpretation Completed By: Radiologist MICHAEL Course/Dx - Course Course Of Treatment: 37-year-old female presents with abdominal pain, nausea, vomiting, and diarrhea for the past week and a half. She denies any fevers. She states she has not been able to keep anything down. She has been using zofran with minimal relief. She states she has lost 20 pounds. He states his symptoms symptoms are similar to when she had H. pylori. She to follow with GI with normal colonoscopy. pain is greatest in the midline. She denies any dysuria. She denies any vaginal discharge. Denies any pelvic pain. Seen here multiple times for abd pain in the past. She has had her gallbladder removed in the past. She has a history of diabetes. On exam diffuse abdominal tenderness. patient states has not been on steroids for the past 2 months. wbc 22 with left shift so will do a CT scan. left shift presents. crp 45. sodium low so gave fluids. patient keeps requesting pain medication. CT neg. likely gastroenteritis. will treat with zofran. patient understand and agrees with plan. - Diagnoses Differential Diagnoses - Female: Appendicitis, Colitis, Urinary Tract Infection Provider Diagnoses: Abdominal pain Discharge - Discharge Plan Condition: Good Disposition: HOME Prescriptions: Ondansetron ODT TAB* [Zofran 4 MG Odt TAB*] 4 mg PO Q6H PRN #20 tab.odt PRN Reason: Nausea Patient Education Materials: Abdominal Pain (ED) Referrals: Kimberlyn Dhillon MD [Primary Care Provider] - Additional Instructions: Your pain is not caused by any surgical emergency Take zofran every 6 hours Drink small amounts of fluid as tolerated When able to eat follow BRAT diet: Bananas, rice, applesauce, toast Take ibuprofen or Tylenol for pain as needed every 6 hours Follow up with primary within 5 days Return to ED if develop any new or worsening symptoms
[2017-10-14 18:53] LABS: EGFR Non-African American 118.3 (>60)
[2017-10-14] MEDS ORDERED: Morphine INJ* 4 MG/ML 1 ML SYRINGE (NEW SYRINGE VERSION) IV ONE (18:56)
[2017-10-14] MEDS ORDERED: Iodixanol* (CONTRAST) 320 MG/ML 100 ML SDV IV ONE (19:38)
[2017-10-14] MEDS ORDERED: NS 0.9% 1000 ML* 2,000 ML IV ONE (20:05)
[2017-10-14 20:25] LABS: Urine Appearance Clear; Urine Blood Negative (Negative); Urine Color Yellow; Urine Ketones Negative (Negative); Urine Protein Negative (Negative); Urine Specific Gravity 1.009 (1.010-1.030); Urine Urobilinogen Negative (Negative)
--- NOTE | 2017-10-14 22:02 | RAD ---
INDICATION: Lower abdominal pain COMPARISON: CT March 26, 2017 TECHNIQUE: Axial source images were obtained from the hemidiaphragms to the symphysis pubis following administration of oral and intravenous contrast. 141 mL Visipaque 320 was utilized. Coronal and sagittal reconstructed images were acquired. Lung bases: The lung bases are clear. Liver: The liver is enlarged with findings of hepatic steatosis. There are no masses. There is no ductal dilatation. Gallbladder: Cholecystectomy. Spleen: The spleen is normal in size. There are no masses. Pancreas: There is no focal pancreatic mass or ductal dilatation. Adrenal glands: There is no evidence of adrenal mass. Kidneys: The kidneys are normal in size and position. There are prompt nephrograms and there is prompt excretion bilaterally. There are no renal parenchymal masses. There is no evidence of nephrolithiasis. Adenopathy: There is no evidence of adenopathy by size criteria. Fluid collections: There are no free or localized fluid collections. Vessels:There are no significant atherosclerotic changes involving the aorta. There is no focal aneurysm. The iliac vessels are normal in caliber. The IVC appears normal. GI tract: There are no acute CT bowel findings. There is no obstruction. The stomach and small bowel appear normal. The lower GI tract is normal. The cecum, ileocecal valve, and terminal ileum appear normal. The appendix is visualized and appear normal. Pelvic organs: The uterus and adnexa appear normal Bladder: There are no bladder masses. Abdominal and pelvic soft tissues: The extraperitoneal abdominal and pelvic soft tissues appear normal.. Osseous structures: There are no acute osseous findings. Other: None IMPRESSION: NO ACUTE CT FINDINGS. NO MASS OR INFLAMMATORY CHANGES
[2017-10-14] MEDS ORDERED: O ndansetron ODT 4MG 2TAB PRPK 4 MG PAK PO ONE (22:12)
[2017-10-14] MEDS ORDERED: Al Hydrox/Mg Hydrox/Simet LIQ* 30 ML UDC PO ONE (22:13)
[2017-10-14] MEDS ORDERED: Lidocaine 2% VISCOUS* 15 ML UDC PO ONE (22:13)
[2017-10-14 22:46] VITALS: BP 107/67
== END 2017-10-14 22:45 | disposition home or self-care (01) ==
LOC: ED 17:16
DX: R10.9 Unspecified abdominal pain (principal); R11.2 Nausea with vomiting, unspecified; R19.7 Diarrhea, unspecified; E10.9 Type 1 diabetes mellitus without complications; Z79.4 Long term (current) use of insulin; Z86.79 Personal history of other diseases of the circulatory system; F17.210 Nicotine dependence, cigarettes, uncomplicated
CPT/HCPCS: 36415; 74177; 80053; 81003; 83690; 84702; 85025; 86141; 96374; 96375; 99284; A9270-GY; J2270; J2405; Q9967

== ENCOUNTER 2017-10-17 17:25 | Emergency (ER) | payer OTHER ==
[2017-10-17 17:44] VITALS: BP 131/82
--- NOTE | 2017-10-17 18:36 | RAD ---
Indication: Left knee pain. 4 views of left knee demonstrates no fracture. Joint spaces well-preserved. IMPRESSION: No fracture of the left knee is noted.
--- NOTE | 2017-10-17 20:38 | UC ---
Katerin Richmond Jason, scribed for Nikolai Short MD on 10/17/17 at 1827 . Knee Pain HPI - HPI Summary HPI Summary: This patient is a 37 year old F presenting to [facility] with a chief complaint of knee pain since 1 day ago at 0500. The patient states that she fell yesterday and is now experiencing knee pain and swelling, as well as rectal bleeding. The patient includes she has hemorrhoids. The patient rates the pain 8/10 in severity. Symptoms aggravated by movement. Symptoms alleviated by nothing. Patient reports feeling sleepy. Patient denies feeling lightheaded, and LOC. The patient is not taking blood thinners. - History of Current Complaint Chief Complaint: UCLowerExtremity Stated Complaint: KNEE INJURY FROM FALL Time Seen by Provider: 10/17/17 18:14 Hx Obtained From: Patient Hx Last Menstrual Period: nexplanon Onset/Duration: Sudden Onset, Lasting Days, Still Present Pain Intensity: 8 Pain Scale Used: 0-10 Numeric Aggravating Factor(s): Movement Alleviating Factor(s): Nothing Associated Signs And Symptoms: Positive: Negative - lightheadedness and LOC, Swelling - left knee - Allergies/Home Medications Allergies/Adverse Reactions: Allergies Allergy/AdvReac Type Severity Reaction Status Date / Time Adhesive Tape Allergy Rash Verified 10/17/17 17:44 asenapine Allergy Rash Verified 10/17/17 17:44 lurasidone [From Latuda] Allergy Hives Verified 10/17/17 17:44 metoclopramide [From Reglan] Allergy Abdominal Verified 10/17/17 17:44 Pain paclitaxel [From Taxol] Allergy Hives Verified 10/17/17 17:44 Sulfa (Sulfonamide Allergy Unknown Verified 10/17/17 17:44 Antibiotics) Reaction Details sulfamethoxazole Allergy Hives Verified 10/17/17 17:44 [From Bactrim] trimethoprim [From Bactrim] Allergy Hives Verified 10/17/17 17:44 nalbuphine [From Nubain] AdvReac Rash Verified 10/17/17 17:44 paroxetine [From Paxil] AdvReac Vomiting Verified 10/17/17 17:44 tramadol AdvReac Rash Verified 10/17/17 17:44 ARSENAPINE Allergy Hives Uncoded 10/17/17 17:44 Bee venom Allergy Anaphylatic Uncoded 10/17/17 17:44 Shock zepeda Allergy Nausea And Uncoded 10/17/17 17:44 Vomiting Home Medications: Home Medications Fluticasone/Vilanterol [Breo Ellipta 200-25 Mcg INH] 1 each IH 10/17/17 [History ] PMH/Surg Hx/FS Hx/Imm Hx Previously Healthy: No Endocrine History: Diabetes Cardiovascular History: Hypertension GI/ History: Gastroesophageal Reflux, Other - irritable bowel syndrome Other GI/ History: . - Surgical History Surgical History: Yes Surgery Procedure, Year, and Place: Cholecystectomy;. Cardiac Catherterization- NO STENT; - Family History Known Family History: Positive: Cardiac Disease, Diabetes, Other - blood clots ( mother), pacemaker (father) Negative: Hypertension - Social History Alcohol Use: Rare Substance Use Type: Marijuana Substance Use Comment - Amount & Last Used: monthly Smoking Status (MU): Light Every Day Tobacco Smoker Type: Cigarettes Amount Used/How Often: states that she smoked 5 cig.s per day, but is on Chantex , planning to quit Have You Smoked in the Last Year: Yes - states that she last smoked yesterday When Did the Patient Quit Smoking/Using Tobacco: states she started Chantex yesterday, and was told she can smoke for 1 wk. Household Exposure Type: Cigarettes - Immunization History Most Recent Influenza Vaccination: received this flu season Most Recent Tetanus Shot: 2002 Most Recent Pneumonia Vaccination: 2010 Review of Systems Gastrointestinal: Other - rectal bleeding Musculoskeletal: Other: - left knee pain and swelling Neurological: Negative - lightheadedness and loss of consciousness, Other - "feeling sleepy" All Other Systems Reviewed And Are Negative: Yes Physical Exam - Summary Physical Exam Summary: General: well-appearing, no pain distress Skin: warm, color reflects adequate perfusion, dry Head: normal Eyes: EOMI, R[place] ENT: normal Neck: supple, nontender Respiratory: CTA, breath sounds present Cardiovascular: RRR Abdomen: soft, nontender Bowel: present Musculoskeletal: strength/ROM intact. Tender over the kneecap over the left knee , Prepatellar swelling. Neurological: normal, sensory/motor intact, A&O x3 Psychological: affect/mood appropriate Rectal: Anterior to the anus there is a 6 mm full thickness skin tear that is not actively bleeding. Triage Information Reviewed: Yes Vital Signs: Initial Vital Signs Temp 97.4 F 10/17/17 17:39 Pulse 114 10/17/17 17:39 Resp 18 10/17/17 17:39 BP 131/82 10/17/17 17:39 Pulse Ox 98 10/17/17 17:39 Diagnostics - Radiology left knee x-ray Radiology Interpretation Completed By: Radiologist - Knee X-ray reveals, per radiologist, No fracture of the left knee. ED physician has reviewed this radiology. Knee Pain Course/Dx - Course Course Of Treatment: Knee X-ray reveals, per radiologist, No fracture of the left knee. BP noted and advised to follow up with PCP. Medications reviewed. Allergies noted. THE PERIANAL SKIN TEAR WAS NOT ACTIVELY BLEEDING ON EXAM. NO CLOSURE DUE TO LENGTH OF TIME SINCE INJURY, IT IS NOT BLEEDING AND THE PERIANAL LOCATION. F/U PMD. - Differential Dx/Diagnosis Provider Diagnoses: LEFT KNEE CONTUSION. PERIANAL SKIN TEAR Discharge - Discharge Plan Condition: Stable Disposition: HOME Patient Education Materials: Laceration (ED), Knee Pain (ED), Laceration Without Closure (ED) Referrals: Kimberlyn Dhillon MD [Primary Care Provider] - Additional Instructions: FOLLOW UP WITH YOUR DOCTOR. GET RECHECKED FOR ANY WORSENING OF YOUR CONDITION OR QUESTIONS OR CONCERNS. YOUR BLOOD PRESSURE WAS ELEVATED DURING TODAY'S VISIT; FOLLOW UP WITH YOUR PCP WITHIN ONE WEEK FOR FURTHER EVALUATION. The documentation as recorded by the Katerin ruelas Jason accurately reflects the service I personally performed and the decisions made by me, Nikolai Short MD.
== END 2017-10-17 19:25 | disposition home or self-care (01) ==
LOC: UCEAST 17:25
DX: S80.02XA Contusion of left knee, initial encounter (principal); S31.831A Laceration without foreign body of anus, initial encounter; W19.XXXA Unspecified fall, initial encounter; Y93.9 Activity, unspecified; Y92.9 Unspecified place or not applicable; E11.9 Type 2 diabetes mellitus without complications; Z79.4 Long term (current) use of insulin; I10 Essential (primary) hypertension; K21.9 Gastro-esophageal reflux disease without esophagitis; Z90.49 Acquired absence of other specified parts of digestive tract; Z91.030 Bee allergy status; Z88.2 Allergy status to sulfonamides; Z88.8 Allergy status to other drugs, medicaments and biological substances; Z91.048 Other nonmedicinal substance allergy status; F17.210 Nicotine dependence, cigarettes, uncomplicated
CPT/HCPCS: 99212; G0463

== ENCOUNTER 2017-10-29 05:50 | Day surgery (SDC) | payer OTHER ==
--- NOTE | 2017-10-07 18:30 | HP ---
PREOPERATIVE HISTORY AND PHYSICAL: DATE OF SURGERY/ADMISSION: 10/15/17 DATE OF OFFICE VISIT/ENCOUNTER: 09/22/17 ATTENDING SURGEON: Jenny Aguilera MD * (DICTATED BY SCOTT STAFFORD) PROCEDURE: Right ulnar nerve decompression at the elbow. CHIEF COMPLAINT: Numbness and tingling, right ulnar nerve distribution. HISTORY OF PRESENT ILLNESS: This is a 37-year-old female, who complained of numbness and tingling in her right upper extremity along the ulnar nerve distribution. She reports she has had the symptoms for several months now and they have progressively worsened. She has had difficulty with writing and grasping and she feels like she is going to drop things when she tries to hold them with her right hand. She also has trouble using the computer. This is her dominant hand. She denies any injury. She reports that symptoms are primarily located in the hand on the ulnar aspect down into the pinkie and ring finger. She does not particularly have any elbow discomfort. She is occasionally awakened by the symptoms. She had an EMG/nerve conduction study, which showed an ulnar nerve compression at the right elbow. She has consented to proceed with surgical intervention at this time in the form of a right ulnar nerve decompression at the elbow. We will receive clearance from her primary care physician, Dr. Dhillon, prior to proceeding with surgery. PAST MEDICAL HISTORY: 1. Morbid obesity. 2. Diabetes. 3. Depression. 4. PTSD. 5. Asthma. 6. Migraine headaches. 7. GERD. 8. Vascular skin disease. 9. Gastroparesis syndrome. 10. Hypervolemia. 11. Rosacea. 12. Polycystic ovaries. 13. Irritable bowel syndrome. 14. Borderline personality disorder. 15. Sleep apnea. PAST SURGICAL HISTORY: 1. Cardiac catheterization. 2. Cholecystectomy. CURRENT MEDICATIONS: 1. Atorvastatin calcium 80 mg daily. 2. Basaglar KwikPen 100 units/mL 120 units q.h.s. 3. Bentyl 10 mg twice daily. 4. Biotin maximum strength 10,000 mcg daily. 5. Butalbital/acetaminophen 50/325 mg p.r.n. headache. 6. Calcium antacid 500 mg p.r.n. 7. Capsaicin . 8. Carafate 1 g 1 four times daily. 9. CellCept 500 mg 3 tabs twice daily. 10. Dapsone 25 mg daily. 11. Diphenhydramine HCl maximum strength 25 mg p.r.n. 12. Ferrous sulfate ER 325 mg daily. 13. Gabapentin 300 mg 1 tab in the afternoon 2 at bedtime. 14. Humalog KwikPen. 15. Imodium A-D 2 mg twice daily p.r.n. diarrhea. 16. Januvia 100 mg daily. 17. Loratadine 10 mg daily. 18. Lorazepam 1 mg b.i.d. p.r.n. anxiety. 19. Melatonin 1 tab daily. 20. Metoprolol tartrate 50 mg b.i.d. 21. Metronidazole 0.75% applied to rosacea daily. 22. Mirtazapine 45 mg half tablet daily. 23. Multivitamin daily. 24. Naproxen sodium 220 mg b.i.d. p.r.n. 25. Nauzene. 26. Ondansetron HCl 4 mg 1 tab q.6 hours p.r.n. nausea. 27. Oxycodone/acetaminophen 5/325 one tab q.4 hours p.r.n. pain. 28. Pantoprazole sodium 40 mg daily. 29. Prazosin HCl 2 mg 3 capsules at bedtime. 30. Prednisone 2.5 mg 3 tabs daily tapering by 2.5 mg every month. 31. Probiotic 1 tab daily. 32. Probiotic acidophilus daily. 33. Pulmicort Flexhaler 180 mcg/act one puff twice daily. 34. QVAR 80 mcg/act two puffs daily. 35. Rexulti 0.5 mg daily. 36. Simethicone 80 mg one tab 3 times daily. 37. Spironolactone 50 mg daily. 38. Sucralfate 1 g four times daily. 39. Topamax 50 mg t.i.d. 40. Tums 500 mg twice a day p.r.n. 41. Tylenol 325 mg two capsules 3 times a day. 42. Ventolin HFA 2 puffs 4 times a day p.r.n. 43. Viibryd 20 mg 3 times daily. 44. Vitamin D3 2000 units daily. 45. Zolpidem tartrate 10 mg daily. 46. Insulin pump with Humalog. ALLERGIES: ADHESIVE TAPE causes skin irritation. REGLAN causes abdominal pain, BEE STINGS cause anaphylactic shock. All of the following causes hives: ASENAPINE, BACTRIM, , LATUDA, NALBUPHINE, NUBAIN, TAXOL, SAPHRIS, SULFA ANTIBIOTICS, and TRAMADOL. FAMILY MEDICAL HISTORY: Congestive heart failure, heart disease, diabetes, hypertension, and stroke. SOCIAL HISTORY: The patient is on social security disability. She lives in a [facility] called [facility]. She is a current smoker. She smokes approximately a half a pack a day and has done so for the past 4 to 6 years. She admits to smoking marijuana and denies drinking alcohol. REVIEW OF SYSTEMS: General: Negative for fevers, chills, or night sweats. No known anesthesia problems in the past. HEENT: Positive for occasional migraine headache. Negative for lightheadedness or syncopal episodes. Integumentary: Negative for abrasions, lesions, or open wounds. Positive for rosacea and vascular skin disease. Cardiothoracic: Negative for hypertension, chest pain, palpitations, or edema. Pulmonary: Positive for shortness of breath with exertion. Negative for chronic cough or COPD. GI: Positive for occasional nausea and diarrhea, positive for GERD. Positive for gastroparesis syndrome. : Negative for nocturia, urinary frequency, urgency, history of UTIs, or kidney problems. Musculoskeletal: Positive for current complaint. Neurological: Positive for depression and PTSD and borderline personality disorder. Endocrine: Positive for diabetes and negative for thyroid issues. Hematologic: Negative for easy bruising, anemia, excessive bleeding, or history of DVT. Infectious Disease: Positive for history of MRSA approximately 10 years ago. Negative for hepatitis C and HIV. PHYSICAL EXAMINATION GENERAL: Well-developed, well-nourished, 37-year-old female, in no acute distress. VITAL SIGNS: Height 5 feet 7 inches, weight 382 pounds, pulse rate 85, blood pressure 130/76. HEENT: Normocephalic, atraumatic. Pupils are equal, round, and reactive to light and accommodation. Extraocular movements are intact. Throat is clear. NECK: Supple. No palpable lymph nodes. PULMONARY: Lungs are clear to auscultation bilaterally. No wheezes, rales, or rhonchi. CARDIOVASCULAR: Regular rate and rhythm. S1, S2. No murmurs, rubs, or gallops. No edema. ABDOMEN: Positive bowel sounds. Soft, nontender. MUSCULOSKELETAL: On exam of her right upper extremity, there is no appreciable muscular wasting in the right hand, although she does have decreased strength with abduction of her fingers on the right compared to the left. She has good strength on her thumb. She has good motion in her wrist and full motion in her fingers. She also has a full motion at her elbow with only minimal increase in symptoms with repetitive elbow flexion and extension. She has a positive Tinel' s at the right elbow of the ulnar nerve. Negative Tinel's at the tunnel of Guyon at the wrist. Negative Tinel's at the median nerve of the wrist. Sensation is intact to light touch throughout the hand including ulnar nerve distribution. Skin is intact. NEUROLOGICAL: Alert and oriented x3. Cranial nerves II through XII are intact. Sensation is intact to light touch. DIAGNOSTIC STUDIES: EMG/nerve conduction studies show ulnar compression at the right elbow. IMPRESSION AND PLAN: The patient is scheduled to undergo a right ulnar nerve decompression at the elbow with Dr. Aguilear on 10/15/17. She will return to the office 10 to 14 days postop for followup and staple removal. Postoperative pain medications will be addressed with the patient the day of discharge. The patient will obtain medical clearance from her primary care physician, Dr. Dhillon, prior to proceeding with surgery. SCOTT STAFFORD [id number]/[facility] #: [id number] HLOLIE
--- NOTE | 2017-10-22 15:55 | HP ---
PREOPERATIVE HISTORY AND PHYSICAL: DATE OF SURGERY/ADMISSION: 10/29/17 DATE OF OFFICE VISIT: 10/21/17 ATTENDING SURGEON: Jenny Aguilera MD* (dictated by SCOTT Calderon). PROCEDURE: Right elbow ulnar nerve decompression. PRIMARY CARE PHYSICIAN: Dr. Dhillon. SAILMAKER: Dr. Kelley CHIEF COMPLAINT: Numbness and tingling, right ulnar nerve distribution. HISTORY OF PRESENT ILLNESS: This is a 37-year-old female with multiple medical problems including obesity, uncontrolled diabetes, hypertension, and longstanding history of noncardiac chest pain. She had an episode of left- sided chest pain a few weeks ago and was evaluated by Dr. Kelley. She had a normal EKG and she has had no history of MN. Currently, she complains of numbness and tingling in her right upper extremity along the ulnar nerve distribution. She reports she has had symptoms for several months now and they have progressively worsened. She has had difficulty with writing and grasping and she feels like she is going to drop things when she tries to hold them with her right hand. She also has trouble using the computer. This is her dominant hand. She denies any injury. She reports that symptoms are primarily located in the hand on the ulnar aspect down into the pinky and ring finger. She does not particularly have any elbow discomfort. She is occasionally awakened by symptoms. She had an EMG nerve conduction study, which showed an ulnar nerve compression at the right elbow. She has consented to proceed with surgical intervention at this time in the form of right ulnar nerve decompression of the elbow. We will receive clearance from her primary care physician, Dr. Dhillon, and horticulture instructor, Dr. Kelley prior to proceeding with surgery. PAST MEDICAL HISTORY: 1. Morbid obesity. 2. Diabetes mellitus type 1. 3. Depression. 4. PTSD. 5. Asthma. 6. Migraine headaches. 7. GERD. 8. Vascular skin disease. 9. Gastroparesis syndrome. 10. Hypervolemia. 11. Rosacea. 12. Polycystic ovaries. 13. Irritable bowel syndrome. 14. Borderline personality disorder. 15. Sleep apnea. PAST SURGICAL HISTORY: 1. Cardiac catheterization. 2. Cholecystectomy. CURRENT MEDICATIONS: 1. Atorvastatin calcium 80 mg daily. 2. Basaglar KwikPen 100 units/mL 120 units q.h.s. 3. Bentyl 10 mg twice daily. 4. Biotin maximum strength 10,000 mcg daily. 5. Butalbital/acetaminophen 50/325 mg p.r.n. headache. 6. Calcium antacids 500 mg p.r.n. 7. Capsaicin. 8. Carafate 1 g 4 times daily. 9. CellCept 500 mg 3 tabs twice daily. 10. Dapsone 25 mg daily. 11. Diphenhydramine HCl maximum strength 25 mg p.r.n. 12. Ferrous sulfate ER 325 mg daily. 13. Gabapentin 300 mg 1 tab in the afternoon and 2 at bedtime. 14. Humalog KwikPen. 15. Imodium A-D 2 mg twice daily p.r.n. diarrhea. 16. Januvia 100 mg daily. 17. Loratadine 10 mg daily. 18. Lorazepam 1 mg b.i.d. p.r.n. anxiety. 19. Melatonin 1 tab daily. 20. Metoprolol tartrate 50 mg b.i.d. 21. Metronidazole 0.5 % applied to rosacea daily. 22. Mirtazapine 45 mg half tab daily. 23. Multivitamin daily. 24. Naproxen sodium 220 mg b.i.d. p.r.n. 25. Nauzene. 26. Ondansetron HCl 4 mg 1 tab q. 6 hours p.r.n. nausea. 27. Pantoprazole sodium 40 mg daily. 28. Prazosin HCl 2 mg 3 capsules at bedtime. 29. Prednisone 2.5 mg 3 tabs daily tapering by 2.5 mg every month. 30. Probiotic 1 tab daily. 31. Probiotic acidophilus daily. 32. Pulmicort Flexhaler 180 mcg/act 1 puff twice daily. 33. QVAR 80 mcg/act 2 puffs daily. 34. Rexulti 0.5 mg daily. 35. Simethicone 80 mg 1 tab 3 times a day. 36. Spironolactone 50 mg daily. 37. Sucralfate 1 g 4 times daily. 38. Topamax 50 mg t.i.d. 39. Tums 500 mg twice a day p.r.n. 40. Tylenol 325 mg 2 capsules 3 times a day. 41. Ventolin HFA 2 puffs 4 times a day p.r.n. 42. Viibryd 20 mg 3 times day. 43. Vitamin D3 of 2000 units daily. 44. Zolpidem tartrate 10 mg daily. 45. Insulin pump Humalog. 46. Butrans: Buprenorphine transdermal patch 15 mcg per hour. ALLERGIES: 1. ADHESIVE TAPES causes skin irritation. 2. REGLAN causes abdominal pain. 3. BEE STINGS cause anaphylactic shock. All of the following cause hives. 4. ASENAPINE. 5. BACTRIM. 6. LATUDA. 7. NALBUPHINE. 8. NUBAIN. 9. TAXOL. 10. SAPHRIS. 11. SULFA ANTIBIOTICS. 12. TRAMADOL. FAMILY MEDICAL HISTORY: Congestive heart failure, heart disease, diabetes, hypertension, stroke. SOCIAL HISTORY: The patient is on social security disability. She lives in a long-term called [facility]. She is a current smoker and smokes approximately half a pack a day and has done so for the past 6 years. She admits to smoking marijuana and denies drinking alcohol. REVIEW OF SYSTEMS: General: Negative for fevers, chills, or night sweats. No known anesthesia problems in the past. HEENT: Positive for occasional migraine headache. Negative for lightheadedness or syncopal episodes. Integumentary: Positive for rosacea and vascular skin disease. Negative for abrasions, lesions, or open wounds. Cardiothoracic: Positive for history of noncardiac chest pain. Negative for palpitations and edema. Pulmonary: Positive for shortness of breath with exertion. Negative for chronic cough or COPD. GI: Positive for occasional nausea and diarrhea. Positive for GERD. Positive for gastroparesis syndrome. : Negative for nocturia, urinary frequency, urgency, history of UTIs, or kidney problems. Musculoskeletal: Positive for current complaint. Neurologic: Positive for depression, PTSD, and borderline personality disorder. Endocrine: Positive for diabetes. Negative for thyroid issues. Hematologic: Negative for easy bruising, anemia, excessive bleeding, or history of DVT. Infectious Disease: Positive for history of MRSA approximately 10 years ago. Negative for hepatitis C and HIV. PHYSICAL EXAMINATION GENERAL: Well-developed, obese, 37-year-old female, in no acute distress. VITAL SIGNS: Height 5 feet 7 inches, weight 367 pounds. Pulse rate 78, blood pressure 130/76. HEENT: Normocephalic, atraumatic. Pupils are equal, round, and reactive to light and accommodation. Extraocular movements are intact. Throat is clear. NECK: Supple. No palpable lymph nodes. PULMONARY: Lungs are clear to auscultation bilaterally. No wheezes, rales, or rhonchi. CARDIOVASCULAR: Regular rate and rhythm. S1 and S2. No murmurs, rubs, or gallops. No edema. ABDOMEN: Positive bowel sounds, soft, nontender. MUSCULOSKELETAL: On exam of the right upper extremity, there is no appreciable muscle wasting in the right hand, although she does have decreased strength with abduction of the fingers on the right compared to the left. She has good strength in her thumb. She has good motion in her wrist and full motion in her fingers. She also has full motion at her elbow with only a minimal increase in symptoms with repetitive elbow flexion and extension. She has a positive Tinel' s at the right elbow of the ulnar nerve. Negative Tinel's at the tunnel of Guyon at the wrist. Negative Tinel's at the median nerve at the wrist. Sensation is intact to light touch throughout the hand including the ulnar nerve distribution. Skin is intact. NEUROLOGIC: Alert and oriented x3. Cranial nerves II through XII are intact. Sensation is intact to light touch. DIAGNOSTIC STUDIES: EMG nerve conduction study shows ulnar nerve compression at the right elbow. IMPRESSION: Ulnar nerve compression of the right elbow PLAN: The patient is scheduled to undergo right ulnar nerve decompression at the elbow with Dr. Aguilera on 10/29/17. She was prescribed Percocet for postoperative pain management. She understands that should she need more pain medication after this initial prescription, we will have a discussion with her other providers. We will plan on seeing her back for followup 10 to 14 days postop for staple removal and exam. SCOTT CALDERON [id number]/[facility] #: [id number] HOLLIE
[~2017-10-29 05:50] MED LIST changes: -Aspirin Low Dose CHEW TAB* 81 MG PO ONE; +Buffered Lidocaine 0.9% SYRIN* 5 ML/SYR SYRINGE INTRADERM ONE; -Dextrose 50% Syringe 50 ML* 25 GM/50 ML SYRINGE IV PUSH PRN; -Insulin LISPRO* 1 UNITS UNIT SUBCUT ONE; -Pantoprazole IV* 40 MG IV ONE; -Sucralfate TAB* 1 GM PO ONE
[2017-10-29] MEDS ORDERED: Sodium Citrate/Citric Acid* 15 ML UDC PO ONE (06:00)
[2017-10-29] MEDS ORDERED: ceFAZolin 1 GM in Dextrose (*) 1 GM/50 ML BAG IVPB ONE (06:06)
[2017-10-29] MEDS ORDERED: Sodium Citrate/Citric Acid* 15 ML UDC ONE (06:06)
[2017-10-29] MEDS ORDERED: Buffered Lidocaine 0.9% SYRIN* 5 ML/SYR SYRINGE ONE (06:07)
[2017-10-29] MEDS ORDERED: ceFAZolin 2 GM in 100 MLS NS (*) BAG IVPB ONE (06:07)
[2017-10-29] MEDS ORDERED: fentaNYL* 50 MCG/ML 2 ML VIAL (100 MCG VIAL) ONE (06:58)
[2017-10-29] MEDS ORDERED: Midazolam* 1 MG/ML 2 ML VIAL (2 MG) ONE ×2 (06:59→07:31)
[2017-10-29] MEDS ORDERED: Lidocaine 2% PF * 5 ML VIAL ONE (07:04)
[2017-10-29] MEDS ORDERED: Propofol* 500 MG/50 ML BTL ONE (07:04)
[2017-10-29] MEDS ORDERED: Lidocaine 1% INJ* 10 MG/ML 30 ML SDV ONE (07:19)
[2017-10-29] MEDS ORDERED: KETAMINE HCL* 50 MG/ML 10 ML VIAL ONE (07:44)
[2017-10-29] MEDS ORDERED: HYDROmorphone INJ* 1 MG/ML CARPUJECT SYRINGE IV PRN (08:07)
[2017-10-29] MEDS ORDERED: oxyCODONE TAB* 5 MG TAB PO PRN (08:07)
[2017-10-29] MEDS ORDERED: Naloxone* 0.4 MG/ML 1 ML VIAL IV PRN (08:07)
[2017-10-29] MEDS ORDERED: oxyCODONE/Acetamin 5/325 MG* TAB PO PRN (08:07)
[2017-10-29] MEDS ORDERED: Ondansetron INJ* 2 MG/ML VIAL IV PRN (08:07)
[2017-10-29] MEDS ORDERED: fentaNYL* 50 MCG/ML 2 ML VIAL (100 MCG VIAL) IV PRN (08:07)
[2017-10-29] MEDS ORDERED: Dextrose 50% Syringe 50 ML* 25 GM/50 ML SYRINGE ONE (08:32)
[2017-10-29 10:03] VITALS: BP 133/74
--- NOTE | 2017-10-29 15:58 | OP ---
DATE OF OPERATION: 10/29/17 - [facility] DATE OF : 84 SURGEON: Jenny Aguilera MD. SENIOR SYSTEMS SOFTWARE ENGINEER: SCOTT Calderon. ANESTHESIA: Local MAC. PRE-OP DIAGNOSIS: Right ulnar nerve compression of the elbow. POST-OP DIAGNOSIS: Right ulnar nerve compression of the elbow. OPERATIVE PROCEDURE: Right ulnar nerve decompression of the elbow. ESTIMATED BLOOD LOSS: Zero. TOURNIQUET TIME: About half an hour. INDICATIONS FOR PROCEDURE: Evelyn is a 37-year-old woman with compression of the ulnar nerve of the elbow and numbness and tingling in her right hand ulnar nerve distribution. She presents for right ulnar nerve decompression at the elbow. DESCRIPTION OF PROCEDURE: The patient was brought to the operating room, was given a sedation anaesthetic and a local infiltration of 10 cc of 1% plain lidocaine in the medial aspect of her right elbow. The skin of her right hand and upper extremity was prepped and draped in the usual sterile fashion. The upper extremity was exsanguinated and the tourniquet elevated to 250 mmHg. A curvilinear incision was made centered between the medial epicondyle and the tip of the olecranon process. We dissected bluntly down to the ulnar nerve just proximal to the Guyon's canal and then carefully dissected the nerve out proximally and distally for several centimeters above the elbow through the Guyon's canal and through the FCU fascia, both superficial and deep. The nerve was most compressed at Guyon's canal. The nerve was completely freed up and the medial intermuscular septum was divided. The wound was irrigated and the subcutaneous tissue reapproximated with 3-0 Polysorb suture and the skin edges with taryn. The patient tolerated the procedure well. The wound was dressed with Xeroform, 4x4, Webril, and an Javad wrap. The patient was brought to the recovery room in good condition. [id number]/[facility] #: [id number] [facility] CENTERLloyd
== END 2017-10-29 10:56 | disposition home or self-care (01) ==
LOC: OR 05:50
PROVIDERS: ATTEND Orthopaedic Surgery
DX: G56.21 Lesion of ulnar nerve, right upper limb (principal); E11.65 Type 2 diabetes mellitus with hyperglycemia; Z79.4 Long term (current) use of insulin; F17.210 Nicotine dependence, cigarettes, uncomplicated; E66.01 Morbid (severe) obesity due to excess calories; J45.909 Unspecified asthma, uncomplicated; F41.8 Other specified anxiety disorders; I10 Essential (primary) hypertension; E78.5 Hyperlipidemia, unspecified
CPT/HCPCS: 81025; A9270-GY; J0690; J2250; J2704; J3010

== ENCOUNTER 2017-11-06 10:50 | Emergency (ER) | payer OTHER ==
[2017-11-06] MEDS ORDERED: oxyCODONE/Acetamin 5/325 MG* TAB PO ONE (12:15)
--- NOTE | 2017-11-06 13:29 | RAD ---
INDICATION: Right elbow swelling status post ulnar recent surgery on October 29, 2017 COMPARISON: None. TECHNIQUE: 4 views right elbow. REPORT: Surgical skin taryn are seen overlying the posterior elbow. The visualized bones of the right elbow are well corticated and properly aligned. There is no radiographically apparent fracture or dislocation. There is no radiographic evidence of pathologic joint effusion. IMPRESSION: Normal radiograph of the right elbow other than surgical skin taryn overlying the posterior aspect. If the patient's symptoms persist further follow-up imaging is recommended.
--- NOTE | 2017-11-06 13:40 | RAD ---
HISTORY: Right ME swelling in a patient status post ulnar nerve decompression surgery October 29, 2017 COMPARISON: None. TECHNIQUE: Multiple transverse and longitudinal ultrasound images were obtained of the veins of the right upper extremity using grayscale, color Doppler, and spectral Doppler imaging with and without compression and with augmentation. FINDINGS: VEINS: The axillary, brachial, basilic and cephalic are compressible throughout their course, with normal flow on color Doppler imaging and normal response to augmentation on spectral Doppler imaging. The subclavian vein exhibits appropriate augmentation and phasicity. The radial and ulnar veins are compressible. Evidence of adequate flow is identified in the right internal jugular and subclavian vein as well. SOFT TISSUES: There is mild edema overlying the subcutaneous tissue at the elbow. IMPRESSION: No sonographic evidence of deep vein thrombosis.
[2017-11-06] MEDS ORDERED: Cephalexin CAP* 500 MG PO ONE (14:42)
[2017-11-06 15:20] VITALS: BP 131/83
--- NOTE | 2017-11-06 17:43 | ED ---
Carlos Richmond Tiffany, scribed for Nikolai Short MD on 11/06/17 at 1215 . Upper Extremity Pain - HPI Summary HPI Summary: The patient is a 37 y/o F BIBA c/o R arm edema since this morning. Symptoms aggravated by nothing. Symptoms alleviated by nothing. Reports R forearm numbness. Denies neck pain. Had elbow surgery 8 days ago. - History of Current Complaint Chief Complaint: EDExtremityUpper Stated Complaint: ARM SWELLING Time Seen by Provider: 11/06/17 12:07 Hx Obtained From: Patient Hx Last Menstrual Period: nexplanon Onset/Duration: Started Hours Ago - This morning, Still Present Timing: Constant Aggravating Factor(s): Nothing Alleviating Factor(s): Nothing Associated Signs & Symptoms: Positive: Negative - neck pain, Other - R forearm numbness - Allergies/Home Medications Allergies/Adverse Reactions: Allergies Allergy/AdvReac Type Severity Reaction Status Date / Time Adhesive Tape Allergy Rash Verified 10/29/17 06:16 asenapine Allergy Rash Verified 10/29/17 06:16 lurasidone [From Latuda] Allergy Hives Verified 10/29/17 06:16 metoclopramide [From Reglan] Allergy Abdominal Verified 10/29/17 06:16 Pain paclitaxel [From Taxol] Allergy Hives Verified 10/29/17 06:16 Sulfa (Sulfonamide Allergy Unknown Verified 10/29/17 06:16 Antibiotics) Reaction Details sulfamethoxazole Allergy Hives Verified 10/29/17 06:16 [From Bactrim] trimethoprim [From Bactrim] Allergy Hives Verified 10/29/17 06:16 nalbuphine [From Nubain] AdvReac Rash Verified 10/29/17 06:16 paroxetine [From Paxil] AdvReac Vomiting Verified 10/29/17 06:16 tramadol AdvReac Rash Verified 10/29/17 06:16 Bee venom Allergy Anaphylatic Uncoded 10/29/17 06:16 Shock zepeda Allergy Nausea And Uncoded 10/29/17 06:16 Vomiting PMH/Surg Hx/FS Hx/Imm Hx Previously Healthy: No Endocrine/Hematology History: Reports: Hx Diabetes - type 2 dm on insulin Cardiovascular History: Reports: Hx Angina, Hx Hypercholesterolemia, Other Cardiovascular Problems/Disorders - vasculitis. tachycardia Denies: Hx Coronary Artery Disease, Hx Hypertension - ON BP MEDS FOR TACHY, Hx Myocardial Infarction, Hx Pacemaker/ICD, Hx Peripheral Vascular Disease, Hx Valvular Heart Disease Respiratory History: Reports: Hx Asthma, Hx Sleep Apnea - had CPAP, doesn't have machine anymore Denies: Hx Chronic Obstructive Pulmonary Disease (COPD), Other Respiratory Problems/Disorders GI History: Reports: Hx Crohn's Disease, Hx Gastroesophageal Reflux Disease, Hx Irritable Bowel, Other GI Disorders - gastroparesis History: Denies: Hx Dialysis, Hx Renal Disease, Other Problems/Disorders Musculoskeletal History: Reports: Other Musculoskeletal History - Ulnar nerve compression Right arm, Borderline personality disorder, PTSD Denies: Hx Arthritis, Hx Osteoporosis Sensory History: Reports: Hx Contacts or Glasses Denies: Hx Legally Blind, Hx Deafness, Hx Hearing Aid Opthamlomology History: Reports: Hx Contacts or Glasses Denies: Hx Legally Blind Neurological History: Reports: Hx Headaches, Hx Migraine Denies: Hx Seizures, Hx Transient Ischemic Attacks (TIA), Other Neuro Impairments/Disorders Psychiatric History: Reports: Hx Anxiety, Hx Depression, Hx Panic Disorder - PTSD, Hx Post Traumatic Stress Disorder, Hx Suicide Attempt, Other Psychiatric Issues/Disorders - Borderline Personality Disorder Denies: Hx Eating Disorder, Hx Bipolar Disorder - Surgical History Surgery Procedure, Year, and Place: Cholecystectomy;. Cardiac Catherterization- NO STENT; Hx Anesthesia Reactions: No - Immunization History Date of Tetanus Vaccine: utd Date of Influenza Vaccine: fall 2016 Infectious Disease History: No Infectious Disease History: Reports: Hx of Known/Suspected MRSA - treated. noncarrier now Denies: Traveled Outside the [place] in Last 30 Days - Family History Known Family History: Positive: Cardiac Disease, Diabetes, Other - blood clots ( mother), pacemaker (father) Negative: Hypertension - Social History Alcohol Use: Rare Hx Substance Use: Yes Substance Use Type: Reports: Marijuana Substance Use Comment - Amount & Last Used: monthly Hx Tobacco Use: Yes Smoking Status (MU): Light Every Day Tobacco Smoker Type: Cigarettes Amount Used/How Often: states that she smoked 5 cig.s per day, but is on Chantex , planning to quit Have You Smoked in the Last Year: Yes - states that she last smoked yesterday Review of Systems Musculoskeletal: Negative - Neck pain Positive: Other - R arm swelling Positive: Other - Stitches on R elbow from elbow surgery 8 days ago Positive: Weakness - in R forearm All Other Systems Reviewed And Are Negative: Yes Physical Exam - Summary Physical Exam Summary: General: well-appearing, no pain distress Skin: Surgical incision has taryn in it. It is clean, dry and intact. There is no erythema. Head: normal Eyes: EOMI, RICO ENT: normal Neck: supple, nontender Respiratory: CTA, breath sounds present Cardiovascular: RRR Abdomen: soft, nontender Bowel: present Musculoskeletal: Normal range of motion in R shoulder, R elbow, R wrist and R fingers. Normal capillary refill in R hand. Positive radial pulses. Patient reports decreased sensation in the right arm compared to the left arm; this decrease sensation is distal to elbow. She reports normal sensation proximal to R elbow. Neurological: normal, sensory/motor intact, A&O x3 Psychological: affect/mood appropriate Triage Information Reviewed: Yes Vital Signs On Initial Exam: Initial Vitals Temp Pulse Resp BP Pulse Ox 97.1 F 86 18 121/81 96 11/06/17 10:57 11/06/17 10:57 11/06/17 10:57 11/06/17 10:57 11/06/17 10:57 Vital Signs Reviewed: Yes Diagnostics - Vital Signs Vital Signs Temp Pulse Resp BP Pulse Ox 11/06/17 11:00 87 121/75 96 11/06/17 10:59 86 96 11/06/17 10:58 121/81 11/06/17 10:57 97.1 F 86 18 121/81 96 - Laboratory Lab Statement: Any lab studies that have been ordered have been reviewed, and results considered in the medical decision making process. - Radiology Elbow Radiology Interpretation Completed By: Radiologist - Normal radiograph of the right elbow other than surgical skin taryn overlying the posterior aspect. If the patient's symptoms persist further follow-up imaging is recommended. ED physician has reviewed this report. - Additional Comments Diagnostic Additional Comments: Venous Doppler Study, per radiologist, reveals No sonographic evidence of deep vein thrombosis. ED physician has reviewed this report. Course/Dx - Course Course Of Treatment: BP noted and advised to follow up with PCP. Medications reviewed. Allergies noted. THE SWELLING AND PARESTHESIA IS ALL DISTAL TO THE ELBOW. NO NECK PAIN. STRENGTH INTACT. NORMAL CAPILLARY REFILL. PATIENT CANFEEL ME TOUCHING HERE RIGHT FOREARM BUT, THE SENSATION IS DECREASED COMPARED TO THE LEFT. DISCUSSED WITH DR RODRIGUEZ, ORTHOPEDICS. DISCUSSED RESULTS WITH PATIENT; F/U WITH ORTHOPEDICS THIS WEEK, RETURN TO ED IF WORSE. - Diagnoses Provider Diagnoses: Forearm swelling, Paresthesia of arm - Physician Notifications Discussed Care of Patient With: Gilmer Lewis Time Discussed With Above Provider: 14:06 Instructed by Provider To: Other - Dr. Lewis (orthopedics) advised to keep the arm elevated and it is expected to get better. If not, then patient should come back to ED. Patient should follow up with Dr. Aguilera (orthopedics) either way. Discharge - Discharge Plan Condition: Stable Disposition: HOME Prescriptions: Cephalexin CAP* [Keflex CAP*] 500 mg PO QID #39 cap oxyCODONE/Acetamin 5/325 MG* [Percocet 5/325 TAB*] 1 tab PO Q4H PRN #20 tab MDD 6 PRN Reason: Pain Patient Education Materials: Paresthesia (ED), Edema (ED) Referrals: Kimberlyn Dhillon MD [Primary Care Provider] - Additional Instructions: FOLLOW UP WITH ORTHOPEDICS THIS WEEK SCHEDULED. ELEVATE YOUR ARM. RETURN TO THE EMERGENCY DEPARTMENT FOR ANY WORSENING OF YOUR CONDITION; ANY SIGN OF POOR CIRCULATION, WEAKNESS, YOU FEEL ILL OR QUESTIONS OR CONCERNS. The documentation as recorded by the Carlos ruelas Tiffany accurately reflects the service I personally performed and the decisions made by me, Nikolai Short MD.
== END 2017-11-06 15:19 | disposition home or self-care (01) ==
LOC: ED 10:50
DX: M79.89 Other specified soft tissue disorders (principal); R20.2 Paresthesia of skin; E11.9 Type 2 diabetes mellitus without complications; Z79.4 Long term (current) use of insulin; F17.210 Nicotine dependence, cigarettes, uncomplicated
CPT/HCPCS: 99283; A9270-GY

== ENCOUNTER 2017-11-14 14:26 | Emergency (ER) | payer OTHER ==
[2017-11-14] MEDS ORDERED: Ketorolac INJ* 60 MG/2 ML VIAL IM ONE (14:40)
[2017-11-14] MEDS ORDERED: Ketorolac INJ* 60 MG/2 ML VIAL ONE (14:42)
[2017-11-14 15:27] LABS: ABS Basophils 0.1 10^3/ul (0-0.2); ABS Eosinophils 0.3 10^3/ul (0-0.6); ABS Lymphocytes 4.6 10^3/ul (1.0-4.8); ABS Monocytes 1.3 10^3/ul (0-0.8); ABS Neutrophils 11.7 10^3/ul (1.5-7.7); ABS Nucleated RBC 0 10^3/ul; Eosinophil % 1.4 % (0-6); Hematocrit 36 % (35-47); Hemoglobin 11.8 g/dl (12.0-16.0); Lymphocyte % 25.7 % (25-47); Mean Corpuscular HGB Conc 33 g/dl (31-36); Mean Corpuscular Hemoglobin 29 pg (27-31); Mean Corpuscular Volume 88 fL (80-97); Mean Platelet Volume 6.2 um3 (7.4-10.4); Nucleated Red Blood Cells % 0; Platelet Count 378 10^3/ul (150-450); Red Blood Count 4.13 10^6/ul (4.0-5.4); Red Cell Distribution Width 14 % (10.5-15)
[2017-11-14 15:37] LABS: INR 0.94 (0.77-1.02)
[2017-11-14 15:42] LABS: EGFR Non-African American 131.3 (>60)
--- NOTE | 2017-11-14 16:04 | ED ---
GI/ HPI - HPI Summary HPI Summary: Patient presents to the ED with chief complaint of dysmenorrhea and vaginal bleeding this morning. Pain is 8 out of 10, cramping and is diffusely present across the lower abdomen bilaterally. Bleeding is quantified by using 2 medium- sized tampons since this morning. Nexplanon inserted and left arm. She states she has not had a menstrual cycle for 5 months and has not had abdominal cramping since that time either. Denies any fevers, sweats, chills. She has been otherwise healthy. She denies any nausea, vomiting, diarrhea, constipation. She was recently completed a course of antibiotics for arm surgery. She states this feels like her normal cramps, but has been taking her oxycodone at home with no relief. She has not tried ibuprofen or other NSAIDs. - History of Current Complaint Chief Complaint: EDAbdPain Time Seen by Provider: 11/14/17 14:28 Stated Complaint: ABD PAIN Hx Obtained From: Patient Hx Last Menstrual Period: nexplanon Onset/Duration: Started Hours Ago Timing: Constant Severity: Moderate Current Severity: Moderate Vaginal Bleeding Description: Bright Red Pain Intensity: 8 Pain Characteristics: Cramping Associated Signs and Symptoms: Positive: Negative Additional Signs & Symptoms: Positive: Vaginal Bleeding Aggravating Factor(s): Nothing Alleviating Factor(s): Nothing - Additional Pertinent History Primary Care Physician: KARTHIKEYAN - Allergy/Home Medications Allergies/Adverse Reactions: Allergies Allergy/AdvReac Type Severity Reaction Status Date / Time Adhesive Tape Allergy Rash Verified 10/29/17 06:16 asenapine Allergy Rash Verified 10/29/17 06:16 lurasidone [From Latuda] Allergy Hives Verified 10/29/17 06:16 metoclopramide [From Reglan] Allergy Abdominal Verified 10/29/17 06:16 Pain paclitaxel [From Taxol] Allergy Hives Verified 10/29/17 06:16 Sulfa (Sulfonamide Allergy Unknown Verified 10/29/17 06:16 Antibiotics) Reaction Details sulfamethoxazole Allergy Hives Verified 10/29/17 06:16 [From Bactrim] trimethoprim [From Bactrim] Allergy Hives Verified 10/29/17 06:16 nalbuphine [From Nubain] AdvReac Rash Verified 10/29/17 06:16 paroxetine [From Paxil] AdvReac Vomiting Verified 10/29/17 06:16 tramadol AdvReac Rash Verified 10/29/17 06:16 "metal" Allergy Swelling Uncoded 11/14/17 14:40 Bee venom Allergy Anaphylatic Uncoded 10/29/17 06:16 Shock zepeda Allergy Nausea And Uncoded 10/29/17 06:16 Vomiting Home Medications: Home Medications Benzoyl Peroxide [Acne Treatment Gel] 5 % TOPICAL DAILY 11/14/17 [History Confirmed 11/14/17] Buprenorphine 15 MCG PATCH(NF) [Butrans 15 MCG PATCH(NF)] 15 mcg TRANSDERM Q7D 11/14/17 [History Confirmed 11/14/17] Butalb/Acetamin/Caff TAB* [Fioricet TAB*] 1 tab PO Q8H PRN 11/14/17 [History Confirmed 11/14/17] Cetirizine* [ZyrTEC 10 MG TAB*] 10 mg PO DAILY PRN 11/14/17 [History Confirmed 11/14/17] EPINEPHrine [Epipen] 0.3 mg IJ ONCE PRN 11/14/17 [History Confirmed 11/14/17] Fluticasone/Vilanterol MDI(NF) [Breo Ellipta MDI 200/25(NF)] 1 puff INH DAILY [History Confirmed 11/14/17] Glucagon* [Glucagen*] 1 mg SUBCUT ONCE PRN 11/14/17 [History Confirmed 11/14/17] HYDROcodone/ACETAMIN 5-325 MG* [[place] 5-325 TAB*] 1 tab PO .Q4-6H PRN 11/14/17 [ History Confirmed 11/14/17] Insulin GLARGINE(*) [Lantus(*)] 70 units SUBCUT BID MDD 200 units 11/14/17 [ History Confirmed 11/14/17] Ketoconazole 2 % CREAM (NF) [Nizoral 2% CREAM (NF)] 1 applic TOPICAL DAILY 11/14 [History Confirmed 11/14/17] Metronidazole (TOPICAL)(NF) [Metrocream (NF)] 0.75 % TOPICAL DAILY 11/14/17 [ History Confirmed 11/14/17] PMH/Surg Hx/FS Hx/Imm Hx Previously Healthy: No Endocrine/Hematology History: Reports: Hx Diabetes - type 2 dm on insulin Cardiovascular History: Reports: Hx Angina, Hx Hypercholesterolemia, Other Cardiovascular Problems/Disorders - vasculitis. tachycardia Denies: Hx Coronary Artery Disease, Hx Hypertension - ON BP MEDS FOR TACHY, Hx Myocardial Infarction, Hx Pacemaker/ICD, Hx Peripheral Vascular Disease, Hx Valvular Heart Disease Respiratory History: Reports: Hx Asthma, Hx Sleep Apnea - had CPAP, doesn't have machine anymore Denies: Hx Chronic Obstructive Pulmonary Disease (COPD), Other Respiratory Problems/Disorders GI History: Reports: Hx Crohn's Disease, Hx Gastroesophageal Reflux Disease, Hx Irritable Bowel, Other GI Disorders - gastroparesis History: Denies: Hx Dialysis, Hx Renal Disease, Other Problems/Disorders Musculoskeletal History: Reports: Other Musculoskeletal History - Ulnar nerve compression Right arm, Borderline personality disorder, PTSD Denies: Hx Arthritis, Hx Osteoporosis Sensory History: Reports: Hx Contacts or Glasses Denies: Hx Legally Blind, Hx Deafness, Hx Hearing Aid Opthamlomology History: Reports: Hx Contacts or Glasses Denies: Hx Legally Blind Neurological History: Reports: Hx Headaches, Hx Migraine Denies: Hx Seizures, Hx Transient Ischemic Attacks (TIA), Other Neuro Impairments/Disorders Psychiatric History: Reports: Hx Anxiety, Hx Depression, Hx Panic Disorder - PTSD, Hx Post Traumatic Stress Disorder, Hx Suicide Attempt, Other Psychiatric Issues/Disorders - Borderline Personality Disorder Denies: Hx Eating Disorder, Hx Bipolar Disorder - Surgical History Surgery Procedure, Year, and Place: Cholecystectomy;. 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 noncarrier now Denies: Traveled Outside the [place] in Last 30 Days - Family History Known Family History: Positive: Cardiac Disease, Diabetes, Other - blood clots ( mother), pacemaker (father) Negative: Hypertension - Social History Occupation: Unemployed Lives: With Family Alcohol Use: Rare Hx Substance Use: Yes Substance Use Type: Reports: Marijuana Substance Use Comment - Amount & Last Used: monthly Hx Tobacco Use: Yes Smoking Status (MU): Light Every Day Tobacco Smoker Type: Cigarettes Amount Used/How Often: states that she smoked 5 cig.s per day, but is on Chantex , planning to quit Have You Smoked in the Last Year: Yes - states that she last smoked yesterday Review of Systems Constitutional: Negative Negative: Fever, Chills, Fatigue, Skin Diaphoresis Eyes: Negative Cardiovascular: Negative Negative: Palpitations, Chest Pain Negative: Shortness Of Breath, Cough Positive: Abdominal Pain. Negative: Vomiting, Diarrhea, Nausea Positive: see HPI, other - menorrhea Musculoskeletal: Negative Neurological: Negative All Other Systems Reviewed And Are Negative: Yes Physical Exam Triage Information Reviewed: Yes Vital Signs On Initial Exam: Initial Vitals Temp Pulse Resp BP Pulse Ox 97.3 F 73 18 140/77 97 11/14/17 14:37 11/14/17 14:37 11/14/17 14:37 11/14/17 14:37 11/14/17 14:37 Vital Signs Reviewed: Yes Appearance: Positive: Well-Appearing, Well-Nourished Skin: Positive: Warm, Skin Color Reflects Adequate Perfusion Head/Face: Positive: Normal Head/Face Inspection Eyes: Positive: EOMI, RICO, Conjunctiva Clear Neck: Positive: Supple, No Lymphadenopathy Respiratory/Lung Sounds: Positive: Clear to Auscultation, Breath Sounds Present Cardiovascular: Positive: Normal, RRR, Pulses are Symmetrical in both Upper and Lower Extremities Abdomen Description: Positive: Other: - unable to reproduce abdominal pain on physical exam. Musculoskeletal: Positive: Normal, Strength/ROM Intact Neurological: Positive: Speech Normal Psychiatric: Positive: Affect/Mood Appropriate Diagnostics - Vital Signs Vital Signs Temp Pulse Resp BP Pulse Ox 11/14/17 14:37 97.3 F 73 18 140/77 97 - Laboratory Lab Results: Lab Results 11/14/17 11/14/17 11/14/17 Range/Units 15:15 15:15 15:15 WBC 18.0 H (3.5-10.8) 10^3/ul RBC 4.13 (4.0-5.4) 10^6/ul Hgb 11.8 L (12.0-16.0) g/dl Hct 36 (35-47) % MCV 88 (80-97) fL MCH 29 (27-31) pg MCHC 33 (31-36) g/dl RDW 14 (10.5-15) % Plt Count 378 (150-450) 10^3/ul MPV 6.2 L (7.4-10.4) um3 Neut % (Auto) 65.1 (38-83) % Lymph % (Auto) 25.7 (25-47) % Sebastian % (Auto) 7.1 H (0-7) % Eos % (Auto) 1.4 (0-6) % Baso % (Auto) 0.7 (0-2) % Absolute Neuts (auto) 11.7 H (1.5-7.7) 10^3/ul Absolute Lymphs (auto) 4.6 (1.0-4.8) 10^3/ul Absolute Monos (auto) 1.3 H (0-0.8) 10^3/ul Absolute Eos (auto) 0.3 (0-0.6) 10^3/ul Absolute Basos (auto) 0.1 (0-0.2) 10^3/ul Absolute Nucleated RBC 0 10^3/ul Nucleated RBC % 0 INR (Anticoag Therapy) 0.94 (0.77-1.02) Sodium 133 (133-145) mmol/L Potassium 4.0 (3.5-5.0) mmol/L Chloride 104 (101-111) mmol/L Carbon Dioxide 21 L (22-32) mmol/L Anion Gap 8 (2-11) mmol/L BUN 4 L (6-24) mg/dL Creatinine 0.53 (0.51-0.95) mg/dL Est GFR ( Amer) 168.8 (>60) Est GFR (Non-Af Amer) 131.3 (>60) BUN/Creatinine Ratio 7.5 L (8-20) Glucose 170 H (70-100) mg/dL Calcium 9.4 (8.6-10.3) mg/dL Total Bilirubin 0.30 (0.2-1.0) mg/dL AST 10 L (13-39) U/L ALT 10 (7-52) U/L Alkaline Phosphatase 86 (34-104) U/L Total Protein 6.9 (6.4-8.9) g/dL Albumin 3.2 (3.2-5.2) g/dL Globulin 3.7 (2-4) g/dL Albumin/Globulin Ratio 0.9 L (1-3) Result Diagrams: 11/14/17 15:15 11/14/17 15:15 Lab Statement: Any lab studies that have been ordered have been reviewed, and results considered in the medical decision making process. GIGU Course/Dx - Course Course Of Treatment: During the course of treatment, the patient is evaluated for dysmenorrhea versus menorrhagia. On inserted into left upper arm. 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 She states she has not had a Mr. cycle for over 5 months. Bleeding began today which is bright red blood and soaked through 2 tampons since this morning. She endorses diffuse lower abdominal pain bilaterally which she describes as cramping and intermittent. On arrival she appears well and in no acute distress. She is given Toradol 60 mg IM and lab work obtained to assure no drop in H&H. WBC appears to be elevated, but she remains between and 18 and 22 at her baseline. She is afebrile. Denies any sweats or chills. Denies feeling ill otherwise. Toradol with improvement. I have given her prescription for Toradol and have encouraged her to take oxycodone for pain was not well controlled with Toradol. I have explained the use for Toradol and prostaglandins which will aid in pain control for her menstrual cramps. - Diagnoses Provider Diagnoses: Dysmenorrhea Discharge - Sign-Out/Discharge Documenting (check all that apply): Discharge - Discharge Plan Condition: Stable Disposition: HOME Prescriptions: Ketorolac TAB * [Toradol TAB *] 10 mg PO Q6H #16 tab Patient Education Materials: Dysmenorrhea (ED) Referrals: Kimberlyn Dhillon MD [Primary Care Provider] - Vinnie Terrell MD [Medical Doctor] - Additional Instructions: Please follow-up with Dr. 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
[2017-11-14 17:03] VITALS: BP 126/63
== END 2017-11-14 17:03 | disposition home or self-care (01) ==
LOC: ED 14:26
DX: N94.6 Dysmenorrhea, unspecified (principal); N93.9 Abnormal uterine and vaginal bleeding, unspecified; R10.30 Lower abdominal pain, unspecified; I20.9 Angina pectoris, unspecified; E78.00 Pure hypercholesterolemia, unspecified; R00.0 Tachycardia, unspecified; J45.909 Unspecified asthma, uncomplicated; K21.9 Gastro-esophageal reflux disease without esophagitis; K50.90 Crohn's disease, unspecified, without complications; E11.43 Type 2 diabetes mellitus with diabetic autonomic (poly)neuropathy; K31.84 Gastroparesis; Z79.4 Long term (current) use of insulin; G43.909 Migraine, unspecified, not intractable, without status migrainosus; F41.0 Panic disorder [episodic paroxysmal anxiety]; F32.9 Major depressive disorder, single episode, unspecified; Z91.030 Bee allergy status; Z88.5 Allergy status to narcotic agent; Z88.2 Allergy status to sulfonamides; Z88.8 Allergy status to other drugs, medicaments and biological substances; Z91.048 Other nonmedicinal substance allergy status; F17.210 Nicotine dependence, cigarettes, uncomplicated
CPT/HCPCS: 36415; 80053; 85025; 85610; 96372; 99282; J1885

== ENCOUNTER 2018-02-06 17:27 | Emergency (ER) | payer MEDICAID, OTHER ==
[2018-02-06] MEDS ORDERED: Morphine VIAL* 4 MG/ML VIAL (1 ml vial) IV ONE ×3 (18:15→22:47)
[2018-02-06] MEDS ORDERED: NS 0.9% 1000 ML* 1,000 ML IV ONE (18:15)
[2018-02-06] MEDS ORDERED: Ondansetron ODT TAB* 4 MG PO ONE (18:15)
[2018-02-06 18:40] LABS: ABS Basophils 0.1 10^3/ul (0-0.2); ABS Eosinophils 0.2 10^3/ul (0-0.6); ABS Monocytes 1.1 10^3/ul (0-0.8); ABS Neutrophils 12.9 10^3/ul (1.5-7.7); ABS Nucleated RBC 0 10^3/ul; Hematocrit 35 % (35-47); Hemoglobin 11.5 g/dl (12.0-16.0); Lymphocyte % 21.6 % (25-47); Mean Corpuscular HGB Conc 33 g/dl (31-36); Mean Corpuscular Hemoglobin 29 pg (27-31); Mean Corpuscular Volume 89 fL (80-97); Mean Platelet Volume 6.1 um3 (7.4-10.4); Nucleated Red Blood Cells % 0; Platelet Count 356 10^3/ul (150-450); Red Blood Count 3.92 10^6/ul (4.00-5.40); Red Cell Distribution Width 14 % (10.5-15); White Blood Count 18.3 10^3/ul (3.5-10.8)
[2018-02-06 18:57] LABS: EGFR Non-African American 123.2 (>60)
[2018-02-06 19:27] LABS: INR 0.94 (0.77-1.02)
--- NOTE | 2018-02-06 19:35 | RAD ---
CLINICAL HISTORY: LOWER ABD PAIN COMPARISON: None TECHNIQUE: Multiple contiguous axial CT scans were obtained of the abdomen and pelvis, without intravenous contrast enhancement. Coronal and sagittal multiplanar reformations are submitted for review. Oral contrast was not administered. FINDINGS: The study is limited by the lack of intravenous contrast. This limits evaluation of the solid organs and vasculature. LUNG BASES: The lung bases are clear. LIVER: The liver is normal in shape, size, contour, and attenuation. BILE DUCTS: There is no intrahepatic or extrahepatic biliary dilatation. GALLBLADDER: The gallbladder is not visualized. Surgical clips are noted in the gallbladder fossa. PANCREAS: The pancreas is normal, without mass or ductal dilatation. SPLEEN: Normal in size and appearance. UPPER GI TRACT: Evaluation of the gastrointestinal tract is limited by incomplete gastric distention. The upper GI tract is unremarkable. SMALL BOWEL AND MESENTERY: The small bowel is normal in contour, course, and caliber. There is no obstruction or dilatation. COLON: The colon is normal in contour, course, caliber. There is no pericolonic inflammatory change. ADRENALS: Normal bilaterally. KIDNEYS: The kidneys are normal in shape, size, contour, and axis. There is no hydronephrosis or nephrolithiasis. BLADDER: The bladder is smooth in contour. PELVIC ORGANS: The uterus and adnexa are grossly normal for technique.. There is a 2.4 cm right ovarian cyst. AORTA: The aorta is normal. IVC: Unremarkable LYMPH NODES: There is no lymphadenopathy by size criteria. ABDOMINAL WALL: There is no evidence for abdominal wall hernia. BONES AND SOFT TISSUES: The bones and soft tissues are unremarkable. OTHER: None IMPRESSION: NO HYDRONEPHROSIS OR NEPHROLITHIASIS. RIGHT OVARIAN CYST.
[2018-02-06 19:54] LABS: Urine Appearance Clear; Urine Blood Negative (Negative); Urine Color Yellow; Urine Ketones Negative (Negative); Urine Protein Negative (Negative); Urine Specific Gravity 1.011 (1.010-1.030); Urine Urobilinogen Negative (Negative)
--- NOTE | 2018-02-06 21:50 | RAD ---
HISTORY: PELVIC PAIN,EVAL FOR TORSION COMPARISONS: CT dated February 06, 2018 TECHNIQUE: Multiple transverse and longitudinal ultrasound images were obtained of the pelvis using grayscale, color Doppler, and spectral Doppler imaging using the endovaginal transducer. FINDINGS: UTERUS: The uterus measures 8.8 x 3 x 4.5 cm. The uterus is normal in shape, size, contour, and echotexture. ENDOMETRIUM: The endometrial stripe is smooth. The endometrium measures 0.7 cm in thickness. CUL-DE-SAC: There is no free fluid within the cul-de-sac. RIGHT OVARY: The right ovary measures 2.9 x 3 x 4.1 cm. Normal arterial and venous waveforms are identifiable within the ovary on spectral Doppler imaging. There is a 3.2 x 3.3 x 2.7 cm simple cyst of the right ovary. LEFT OVARY: The left ovary is not well visualized. Left ovary measures approximately 3 x 2.2 x 2.2 cm in size. Normal arterial and venous waveforms are identifiable within the ovary on spectral Doppler imaging. BLADDER: The bladder is not well visualized. OTHER: None IMPRESSION: 1. 3.3 CM SIMPLE CYST OF THE RIGHT OVARY. 2. THE LEFT OVARY IS SUBOPTIMALLY VISUALIZED, BUT IS GROSSLY NORMAL. 3. NO SONOGRAPHIC FEATURES OF TORSION. PLEASE NOTE THAT PARTIAL OR INTERMITTENT TORSION MAY BE SONOGRAPHICALLY NORMAL.
[2018-02-06] MEDS ORDERED: cefTRIAXone(*) 1 GM in NS 0.9% 50 ML* 50 ML IVPB ONE (22:47)
[2018-02-06] MEDS ORDERED: DOXYcycline CAP(*) 100 MG PO ONE (22:48)
[2018-02-06] MEDS ORDERED: metroNIDAZOLE TAB* 250 MG PO ONE (22:48)
--- NOTE | 2018-02-06 23:03 | ED ---
Oralia [place] Jade, scribed for Nikolai Short MD on 02/06/18 at 1813 . Abdominal Pain/Female - HPI Summary HPI Summary: Pt is a 37 y/o female BIBA who c/o abdominal pain since 2 days ago. She states the pain keeps worsening, is 9/10 in severity, and feels like pressure and as if her insides are falling out. The pain is diffuse over the abdomen, but concentrated in the lower abdomen. She also complains of nausea, and vomited once. Pt denies fever, chills, dysuria, abnormal vaginal discharge, or difficulty with BM or urination. She also denies any rcent sexual partners, and is homosexual. Pt has taken Naproxen, Tylenol, and Codeine for the pain. PSHx cholecystectomy. - History of Current Complaint Chief Complaint: EDAbdPain Stated Complaint: ABD PAIN Time Seen by Provider: 02/06/18 18:06 Hx Obtained From: Patient Hx Last Menstrual Period: nexplanon Onset/Duration: Gradual Onset, Lasting Days - 2, Worse Since Timing: Constant Severity Currently: Severe Pain Intensity: 9 Pain Scale Used: 0-10 Numeric Location: Other - Diffuse, but mainly lower abdomen Character: Other: - Pressure, "insides falling out" Aggravating Factor(s): Nothing Associated Signs and Symptoms: Positive: Nausea, Vomiting. Negative: Constipation, Blood in Stool, Urinary Symptoms Allergies/Adverse Reactions: Allergies Allergy/AdvReac Type Severity Reaction Status Date / Time Adhesive Tape Allergy Rash Verified 12/24/17 13:33 asenapine Allergy Rash Verified 12/24/17 13:33 lurasidone [From Latuda] Allergy Hives Verified 12/24/17 13:33 metoclopramide [From Reglan] Allergy Abdominal Verified 12/24/17 13:33 Pain paclitaxel [From Taxol] Allergy Hives Verified 12/24/17 13:33 Sulfa (Sulfonamide Allergy Unknown Verified 12/24/17 13:33 Antibiotics) Reaction Details sulfamethoxazole Allergy Hives Verified 12/24/17 13:33 [From Bactrim] trimethoprim [From Bactrim] Allergy Hives Verified 12/24/17 13:33 nalbuphine [From Nubain] AdvReac Rash Verified 12/24/17 13:33 paroxetine [From Paxil] AdvReac Vomiting Verified 12/24/17 13:33 tramadol AdvReac Rash Verified 12/24/17 13:33 "metal" Allergy Swelling Uncoded 11/14/17 14:40 Bee venom Allergy Anaphylatic Uncoded 10/29/17 06:16 Shock zepeda Allergy Nausea And Uncoded 10/29/17 06:16 Vomiting PMH/Surg Hx/FS Hx/Imm Hx Endocrine/Hematology History: Reports: Hx Diabetes - type 2 dm on insulin Cardiovascular History: Reports: Hx Angina, Hx Hypercholesterolemia, Other Cardiovascular Problems/Disorders - vasculitis. tachycardia Denies: Hx Coronary Artery Disease, Hx Hypertension - ON BP MEDS FOR TACHY, Hx Myocardial Infarction, Hx Pacemaker/ICD, Hx Peripheral Vascular Disease, Hx Valvular Heart Disease Respiratory History: Reports: Hx Asthma, Hx Sleep Apnea - had CPAP, doesn't have machine anymore Denies: Hx Chronic Obstructive Pulmonary Disease (COPD), Other Respiratory Problems/Disorders GI History: Reports: Hx Crohn's Disease, Hx Gastroesophageal Reflux Disease, Hx Irritable Bowel, Other GI Disorders - gastroparesis History: Denies: Hx Dialysis, Hx Renal Disease, Other Problems/Disorders Musculoskeletal History: Reports: Other Musculoskeletal History - Ulnar nerve compression Right arm, Borderline personality disorder, PTSD Denies: Hx Arthritis, Hx Osteoporosis Sensory History: Reports: Hx Contacts or Glasses Denies: Hx Legally Blind, Hx Deafness, Hx Hearing Aid Opthamlomology History: Reports: Hx Contacts or Glasses Denies: Hx Legally Blind Neurological History: Reports: Hx Headaches, Hx Migraine Denies: Hx Seizures, Hx Transient Ischemic Attacks (TIA), Other Neuro Impairments/Disorders Psychiatric History: Reports: Hx Anxiety, Hx Depression, Hx Panic Disorder - PTSD, Hx Post Traumatic Stress Disorder, Hx Suicide Attempt, Other Psychiatric Issues/Disorders - Borderline Personality Disorder Denies: Hx Eating Disorder, Hx Bipolar Disorder - Surgical History Surgery Procedure, Year, and Place: Cholecystectomy;. Cardiac Catherterization- NO STENT; Hx Anesthesia Reactions: No - Immunization History Date of Tetanus Vaccine: utd Date of Influenza Vaccine: fall 2016 Infectious Disease History: No Infectious Disease History: Reports: Hx of Known/Suspected MRSA - treated. noncarrier now Denies: Traveled Outside the [place] in Last 30 Days - Family History Known Family History: Positive: Cardiac Disease, Diabetes, Other - blood clots ( mother), pacemaker (father) Negative: Hypertension - Social History Alcohol Use: None Hx Substance Use: Yes Substance Use Type: Reports: Marijuana Substance Use Comment - Amount & Last Used: 02/04/18 Hx Tobacco Use: Yes Smoking Status (MU): Current Every Day Smoker Type: Cigarettes Amount Used/How Often: 7 cigarettes/day Have You Smoked in the Last Year: Yes - states that she last smoked yesterday Review of Systems Negative: Fever, Chills Gastrointestinal: Negative - Difficulty with BM Positive: Abdominal Pain - Mainly lower, Vomiting - Once, Nausea Genitourinary: Negative Negative: dysuria, discharge All Other Systems Reviewed And Are Negative: Yes Physical Exam - Summary Physical Exam Summary: General: no pain distress, morbidly obese Skin: warm, color reflects adequate perfusion, dry Head: normal Eyes: EOMI, RICO ENT: normal Neck: supple, nontender Respiratory: CTA, breath sounds present Cardiovascular: RRR Abdomen: soft, tenderness over the suprapubic region. Bowel: present Musculoskeletal: normal, strength/ROM intact Neurological: sensory/motor intact, A&O x3 Psychological: affect/mood appropriate Triage Information Reviewed: Yes Vital Signs On Initial Exam: Initial Vitals Temp Pulse Resp BP Pulse Ox 98.1 F 86 18 112/69 97 02/06/18 17:37 02/06/18 17:37 02/06/18 17:37 02/06/18 17:37 02/06/18 17:37 Vital Signs Reviewed: Yes Diagnostics - Vital Signs Vital Signs Temp Pulse Resp BP Pulse Ox 02/06/18 18:00 79 95 02/06/18 17:41 85 112/69 97 02/06/18 17:40 87 97 02/06/18 17:37 98.1 F 86 18 112/69 97 - Laboratory Lab Results: Lab Results 02/06/18 02/06/18 02/06/18 Range/Units 18:33 18:33 18:33 WBC 18.3 H (3.5-10.8) 10^3/ul RBC 3.92 L (4.00-5.40) 10^6/ul Hgb 11.5 L (12.0-16.0) g/dl Hct 35 (35-47) % MCV 89 (80-97) fL MCH 29 (27-31) pg MCHC 33 (31-36) g/dl RDW 14 (10.5-15) % Plt Count 356 (150-450) 10^3/ul MPV 6.1 L (7.4-10.4) um3 Neut % (Auto) 70.6 (38-83) % Lymph % (Auto) 21.6 L (25-47) % [place] % (Auto) 6.0 (0-7) % Eos % (Auto) 1.0 (0-6) % Baso % (Auto) 0.8 (0-2) % Absolute Neuts (auto) 12.9 H (1.5-7.7) 10^3/ul Absolute Lymphs (auto) 4.0 (1.0-4.8) 10^3/ul Absolute Monos (auto) 1.1 H (0-0.8) 10^3/ul Absolute Eos (auto) 0.2 (0-0.6) 10^3/ul Absolute Basos (auto) 0.1 (0-0.2) 10^3/ul Absolute Nucleated RBC 0 10^3/ul Nucleated RBC % 0 INR (Anticoag Therapy) 0.94 (0.77-1.02) APTT 26.1 (26.0-36.3) seconds Sodium 137 (135-145) mmol/L Potassium 4.0 (3.5-5.0) mmol/L Chloride 107 (101-111) mmol/L Carbon Dioxide 23 (22-32) mmol/L Anion Gap 7 (2-11) mmol/L BUN 9 (6-24) mg/dL Creatinine 0.56 (0.51-0.95) mg/dL Est GFR ( Amer) 158.4 (>60) Est GFR (Non-Af Amer) 123.2 (>60) BUN/Creatinine Ratio 16.1 (8-20) Glucose 189 H (70-100) mg/dL Lactic Acid (0.5-2.0) mmol/L Calcium 9.0 (8.6-10.3) mg/dL Total Bilirubin 0.20 (0.2-1.0) mg/dL AST 8 L (13-39) U/L ALT 8 (7-52) U/L Alkaline Phosphatase 104 (34-104) U/L C-Reactive Protein 29.46 H (< 5.00) mg/L Total Protein 6.7 (6.4-8.9) g/dL Albumin 3.2 (3.2-5.2) g/dL Globulin 3.5 (2-4) g/dL Albumin/Globulin Ratio 0.9 L (1-3) Lipase 16 (11.0-82.0) U/L Beta HCG, Quant < 0.60 mIU/mL Urine Color Urine Appearance Urine pH (5-9) Ur Specific [place] (1.010-1.030) Urine Protein (Negative) Urine Ketones (Negative) Urine Blood (Negative) Urine Nitrate (Negative) Urine Bilirubin (Negative) Urine Urobilinogen (Negative) Ur Leukocyte Esterase (Negative) Urine Glucose (Negative) 02/06/18 02/06/18 Range/Units 18:33 19:30 WBC (3.5-10.8) 10^3/ul RBC (4.00-5.40) 10^6/ul Hgb (12.0-16.0) g/dl Hct (35-47) % MCV (80-97) fL MCH (27-31) pg MCHC (31-36) g/dl RDW (10.5-15) % Plt Count (150-450) 10^3/ul MPV (7.4-10.4) um3 Neut % (Auto) (38-83) % Lymph % (Auto) (25-47) % [place] % (Auto) (0-7) % Eos % (Auto) (0-6) % Baso % (Auto) (0-2) % Absolute Neuts (auto) (1.5-7.7) 10^3/ul Absolute Lymphs (auto) (1.0-4.8) 10^3/ul Absolute Monos (auto) (0-0.8) 10^3/ul Absolute Eos (auto) (0-0.6) 10^3/ul Absolute Basos (auto) (0-0.2) 10^3/ul Absolute Nucleated RBC 10^3/ul Nucleated RBC % INR (Anticoag Therapy) (0.77-1.02) APTT (26.0-36.3) seconds Sodium (135-145) mmol/L Potassium (3.5-5.0) mmol/L Chloride (101-111) mmol/L Carbon Dioxide (22-32) mmol/L Anion Gap (2-11) mmol/L BUN (6-24) mg/dL Creatinine (0.51-0.95) mg/dL Est GFR ( Amer) (>60) Est GFR (Non-Af Amer) (>60) BUN/Creatinine Ratio (8-20) Glucose (70-100) mg/dL Lactic Acid 1.9 (0.5-2.0) mmol/L Calcium (8.6-10.3) mg/dL Total Bilirubin (0.2-1.0) mg/dL AST (13-39) U/L ALT (7-52) U/L Alkaline Phosphatase (34-104) U/L C-Reactive Protein (< 5.00) mg/L Total Protein (6.4-8.9) g/dL Albumin (3.2-5.2) g/dL Globulin (2-4) g/dL Albumin/Globulin Ratio (1-3) Lipase (11.0-82.0) U/L Beta HCG, Quant mIU/mL Urine Color Yellow Urine Appearance Clear Urine pH 5.0 (5-9) Ur Specific [place] 1.011 (1.010-1.030) Urine Protein Negative (Negative) Urine Ketones Negative (Negative) Urine Blood Negative (Negative) Urine Nitrate Negative (Negative) Urine Bilirubin Negative (Negative) Urine Urobilinogen Negative (Negative) Ur Leukocyte Esterase Negative (Negative) Urine Glucose Negative (Negative) Result Diagrams: 02/06/18 18:33 02/06/18 18:33 Lab Statement: Any lab studies that have been ordered have been reviewed, and results considered in the medical decision making process. - CT 18:16 CT Interpretation Completed By: Radiologist - Abd/Pel CT: NO HYDRONEPHROSIS OR NEPHROLITHIASIS. RIGHT OVARIAN CYST. ED physician reviewed radiology report. Abdominal Pain Fem Course/Dx - Course Course Of Treatment: PELVIC EXAM WITHOUT DISCHARGE. DISCUSSED RESULTS WITH THE PATIENT. WILL TREAT WITH ROCEPHIN, DOXY AND FLAGYL. PATIENT HAS F/U WITH GYNECOLOGY SCHEDULED FOR 02/10/18. DISCUSSED RETURN TO ED IF CONDITION WORSENS OR ANY CONCERNS. - Diagnoses Provider Diagnoses: Pelvic pain, Abdominal pain Discharge - Sign-Out/Discharge Documenting (check all that apply): Discharge/Admit/Transfer - Discharge Plan Condition: Stable Disposition: HOME Prescriptions: DOXYcycline CAP(*) [DOXYcycline 100MG CAP(*)] 100 mg PO BID #13 cap HYDROcodone/ACETAMIN 5-325 MG* [[place] 5-325 TAB*] 1 tab PO Q6H PRN #15 tab MDD 4 PRN Reason: Pain metroNIDAZOLE [Flagyl] 500 mg PO BID #13 tablet Patient Education Materials: Pelvic Pain in Women (ED) Referrals: Kimberlyn Dhillon MD [Primary Care Provider] - Vinnie Terrell MD [Medical Doctor] - Additional Instructions: FOLLOW UP WITH YOUR TEAM GUIDE. RETURN TO THE EMERGENCY DEPARTMENT FOR ANY WORSENING OF YOUR CONDITION; PAIN, FEVER, YOU FEEL ILL OR QUESTIONS OR CONCERNS. - Billing Disposition and Condition Condition: STABLE Disposition: Home The documentation as recorded by the Oralia ruelas Jade accurately reflects the service I personally performed and the decisions made by me, Nikolai Short MD.
[2018-02-06 23:18] VITALS: BP 125/74
--- NOTE | 2018-02-10 17:18 | PN ---
Progress Note - Progress Note Date of Service: 02/06/18 Note: Pt. seen in ER 02/06 and had vaginal cultures obtained at that time. Vaginal culture is positive for yeast. I called and spoke with pt. today around 1705 and discussed results. Pt. states she had her annual [employer] exam yesterday and her [employer] doctor treated her with diflucan.
== END 2018-02-06 23:17 | disposition home or self-care (01) ==
LOC: ED 17:27
DX: R10.2 Pelvic and perineal pain (principal); R10.9 Unspecified abdominal pain; I10 Essential (primary) hypertension; E11.9 Type 2 diabetes mellitus without complications; F17.210 Nicotine dependence, cigarettes, uncomplicated; Z86.79 Personal history of other diseases of the circulatory system; Z90.49 Acquired absence of other specified parts of digestive tract; Z79.4 Long term (current) use of insulin; Z79.899 Other long term (current) drug therapy; Z88.0 Allergy status to penicillin; Z88.8 Allergy status to other drugs, medicaments and biological substances; Z88.5 Allergy status to narcotic agent
CPT/HCPCS: 36415; 74176; 76830; 80053; 81003; 83605; 83690; 84702; 85025; 85610; 85730; 86140; 87480; 87491; 87510; 87591; 87661; 96361; 96374; 96375; 96376; 99283; A9270-GY; J0696; J2270

== ENCOUNTER 2018-02-08 15:48 | Emergency (ER) | payer OTHER ==
[2018-02-08 18:40] LABS: ABS Basophils 0.1 10^3/ul (0-0.2); ABS Eosinophils 0.1 10^3/ul (0-0.6); ABS Lymphocytes 3.9 10^3/ul (1.0-4.8); ABS Monocytes 1.2 10^3/ul (0-0.8); ABS Neutrophils 14.7 10^3/ul (1.5-7.7); ABS Nucleated RBC 0 10^3/ul; Eosinophil % 0.6 % (0-6); Hematocrit 36 % (35-47); Hemoglobin 12.1 g/dl (12.0-16.0); Lymphocyte % 19.6 % (25-47); Mean Corpuscular HGB Conc 34 g/dl (31-36); Mean Corpuscular Hemoglobin 29 pg (27-31); Mean Corpuscular Volume 88 fL (80-97); Mean Platelet Volume 6.2 um3 (7.4-10.4); Nucleated Red Blood Cells % 0; Platelet Count 349 10^3/ul (150-450); Red Blood Count 4.13 10^6/ul (4.00-5.40); Red Cell Distribution Width 13 % (10.5-15); White Blood Count 20.1 10^3/ul (3.5-10.8)
[2018-02-08 18:43] LABS: Urine Appearance Clear; Urine Blood Negative (Negative); Urine Color Yellow; Urine Ketones Negative (Negative); Urine Protein Negative (Negative); Urine Specific Gravity 1.009 (1.010-1.030); Urine Urobilinogen Negative (Negative)
[2018-02-08] MEDS ORDERED: Ketorolac INJ* 30 MG/ML 1 ML VIAL IV PUSH ONE ×2 (19:02→20:43)
[2018-02-08 19:14] LABS: EGFR Non-African American 143.7 (>60)
--- NOTE | 2018-02-08 20:32 | RAD ---
INDICATION: Right lower quadrant pain COMPARISON: Similar pelvic ultrasound dated February 06, 2018 TECHNIQUE: Real-time transabdominal and transvaginal ultrasound examination of the female pelvis including grayscale and Doppler color flow imaging. FINDINGS: Unless otherwise specified comparisons below reference the February 06, 2018 pelvic ultrasound. Uterus: The uterus is normal in size and echogenicity measuring 7.2 x 3.5 x 4.0 cm. The endometrial stripe is smooth and uniform measuring 2 mm in thickness. Ovaries: The right and left ovary measure 3.2 x 2.8 x 4.0 cm and 3.2 x 1.9 x 2.5 cm, respectively. Normal arterial and venous waveforms are identified. In the right ovary there is an anechoic and avascular cystic structure measuring 2.6 x 2.3 x 3.9 cm, previously 2.2 x 3.3 x 2.7 cm. There is no free fluid in the cul-de-sac. IMPRESSION: Sonographic findings are consistent with a right ovarian follicle that is slightly smaller when compared to the February 06, 2018 pelvic ultrasound.
--- NOTE | 2018-02-08 20:41 | ED ---
GI/ HPI - HPI Summary HPI Summary: 37-year-old female presents with abdominal pain for the past 4 days. She states that it is mostly in her right lower quadrant. She states that the intensity has increased. She denies any fevers. She admits to nausea but no vomiting. No pain with urination. No abnormal vaginal discharge. States she does not have a pelvic infection. Her cultures 2 days ago did come back pos for gardnerella. She denies any symptoms. She denies any pain with urination. No flank pain. No hematuria. She has been taking naproxen and norco without relief. she had had gallbladder removed. she denies any diarrhea or constipation. she is on nexplanon. no history of ovarian cyst prior. was seen here two days ago and dx with right ovarian cyst. not followed up with ob. She is a frequent ED patient for abdominal pain. - History of Current Complaint Chief Complaint: EDAbdPain Time Seen by Provider: 02/08/18 18:01 Stated Complaint: ABD PAIN Hx Last Menstrual Period: nexplanon Pain Intensity: 8 - Additional Pertinent History Primary Care Physician: KARTHIKEYAN - Allergy/Home Medications Allergies/Adverse Reactions: Allergies Allergy/AdvReac Type Severity Reaction Status Date / Time Adhesive Tape Allergy Rash Verified 02/08/18 16:01 asenapine Allergy Rash Verified 02/08/18 16:01 lurasidone [From Latuda] Allergy Hives Verified 02/08/18 16:01 metoclopramide [From Reglan] Allergy Abdominal Verified 02/08/18 16:01 Pain paclitaxel [From Taxol] Allergy Hives Verified 02/08/18 16:01 Sulfa (Sulfonamide Allergy Unknown Verified 02/08/18 16:01 Antibiotics) Reaction Details sulfamethoxazole Allergy Hives Verified 02/08/18 16:01 [From Bactrim] trimethoprim [From Bactrim] Allergy Hives Verified 02/08/18 16:01 nalbuphine [From Nubain] AdvReac Rash Verified 02/08/18 16:01 paroxetine [From Paxil] AdvReac Vomiting Verified 02/08/18 16:01 tramadol AdvReac Rash Verified 02/08/18 16:01 "metal" Allergy Swelling Uncoded 02/08/18 16:01 Bee venom Allergy Anaphylatic Uncoded 02/08/18 16:01 Shock zepeda Allergy Nausea And Uncoded 02/08/18 16:01 Vomiting Home Medications: Home Medications Dextrose/Fructose/Sod Citrat [Nauzene Tablet Chew] 2 - 4 tab PO Q4HR PRN [History Confirmed 02/08/18] EPINEPHrine [Epipen 2-Amos] 0.3 mg IM ONCE PRN 02/08/18 [History Confirmed ] Insulin Glargine (Nf) [[place] Solostar Pen (NF)] 70 unit SUBCUT BID 02/08/18 [ History Confirmed 02/08/18] Magnesium Oxide TAB* [MagOx 400 TAB*] 400 mg PO DAILY 02/08/18 [History Confirmed 02/08/18] Mupirocin 2% OINT* [Bactroban 2 % Oint*] 1 applic TOPICAL BID 02/08/18 [History Confirmed 02/08/18] Ondansetron TAB* [Zofran 4 MG Tab*] 4 mg PO Q6H PRN 02/08/18 [History Confirmed 02/08/18] Topiramate TAB(*) [Topamax 25 MG tab] 25 mg PO BID 02/08/18 [History Confirmed 02/08/18] PMH/Surg Hx/FS Hx/Imm Hx Endocrine/Hematology History: Reports: Hx Diabetes - type 2 dm on insulin Cardiovascular History: Reports: Hx Angina, Hx Hypercholesterolemia, Other Cardiovascular Problems/Disorders - vasculitis. tachycardia Denies: Hx Coronary Artery Disease, Hx Hypertension - ON BP MEDS FOR TACHY, Hx Myocardial Infarction, Hx Pacemaker/ICD, Hx Peripheral Vascular Disease, Hx Valvular Heart Disease Respiratory History: Reports: Hx Asthma, Hx Sleep Apnea - had CPAP, doesn't have machine anymore Denies: Hx Chronic Obstructive Pulmonary Disease (COPD), Other Respiratory Problems/Disorders GI History: Reports: Hx Crohn's Disease, Hx Gastroesophageal Reflux Disease, Hx Irritable Bowel, Other GI Disorders - gastroparesis History: Denies: Hx Dialysis, Hx Renal Disease, Other Problems/Disorders Musculoskeletal History: Reports: Other Musculoskeletal History - Ulnar nerve compression Right arm, Borderline personality disorder, PTSD Denies: Hx Arthritis, Hx Osteoporosis Sensory History: Reports: Hx Contacts or Glasses Denies: Hx Legally Blind, Hx Deafness, Hx Hearing Aid Opthamlomology History: Reports: Hx Contacts or Glasses Denies: Hx Legally Blind Neurological History: Reports: Hx Headaches, Hx Migraine Denies: Hx Seizures, Hx Transient Ischemic Attacks (TIA), Other Neuro Impairments/Disorders Psychiatric History: Reports: Hx Anxiety, Hx Depression, Hx Panic Disorder - PTSD, Hx Post Traumatic Stress Disorder, Hx Suicide Attempt, Other Psychiatric Issues/Disorders - Borderline Personality Disorder Denies: Hx Eating Disorder, Hx Bipolar Disorder - Surgical History Surgery Procedure, Year, and Place: Cholecystectomy;. Cardiac Catherterization- NO STENT; Hx Anesthesia Reactions: No - Immunization History Date of Tetanus Vaccine: utd Date of Influenza Vaccine: fall 2016 Infectious Disease History: No Infectious Disease History: Reports: Hx of Known/Suspected MRSA - treated. noncarrier now Denies: Traveled Outside the [place] in Last 30 Days - Family History Known Family History: Positive: Cardiac Disease, Diabetes, Other - blood clots ( mother), pacemaker (father) Negative: Hypertension - Social History Alcohol Use: None Hx Substance Use: Yes Substance Use Type: Reports: Marijuana Substance Use Comment - Amount & Last Used: 02/04/18 Hx Tobacco Use: Yes Smoking Status (MU): Light Every Day Tobacco Smoker Type: Cigarettes Amount Used/How Often: 7 cigarettes/day Have You Smoked in the Last Year: Yes - states that she last smoked yesterday Review of Systems Negative: Fever Negative: Chest Pain Negative: Shortness Of Breath Positive: Abdominal Pain, Nausea. Negative: Vomiting, Diarrhea All Other Systems Reviewed And Are Negative: Yes Physical Exam Triage Information Reviewed: Yes Vital Signs On Initial Exam: Initial Vitals Temp Pulse Resp BP Pulse Ox 96.9 F 88 16 151/99 99 02/08/18 15:56 02/08/18 15:56 02/08/18 15:56 02/08/18 15:56 02/08/18 15:56 Vital Signs Reviewed: Yes Appearance: Positive: Well-Appearing Skin: Positive: Warm, Dry Head/Face: Positive: Normal Head/Face Inspection Eyes: Positive: Normal, Conjunctiva Clear ENT: Positive: Pharynx normal Respiratory/Lung Sounds: Positive: Clear to Auscultation, Breath Sounds Present Cardiovascular: Positive: Normal, RRR Abdomen Description: Positive: Nontender, Soft Bowel Sounds: Positive: Present Musculoskeletal: Positive: Normal Neurological: Positive: Normal Psychiatric: Positive: Normal Diagnostics - Vital Signs Vital Signs Temp Pulse Resp BP Pulse Ox 02/08/18 15:56 96.9 F 88 16 151/99 99 - Laboratory Lab Results: Lab Results 02/08/18 02/08/18 02/08/18 Range/Units 18:20 18:29 18:29 WBC 20.1 H (3.5-10.8) 10^3/ul RBC 4.13 (4.00-5.40) 10^6/ul Hgb 12.1 (12.0-16.0) g/dl Hct 36 (35-47) % MCV 88 (80-97) fL MCH 29 (27-31) pg MCHC 34 (31-36) g/dl RDW 13 (10.5-15) % Plt Count 349 (150-450) 10^3/ul MPV 6.2 L (7.4-10.4) um3 Neut % (Auto) 73.3 (38-83) % Lymph % (Auto) 19.6 L (25-47) % [place] % (Auto) 6.0 (0-7) % Eos % (Auto) 0.6 (0-6) % Baso % (Auto) 0.5 (0-2) % Absolute Neuts (auto) 14.7 H (1.5-7.7) 10^3/ul Absolute Lymphs (auto) 3.9 (1.0-4.8) 10^3/ul Absolute Monos (auto) 1.2 H (0-0.8) 10^3/ul Absolute Eos (auto) 0.1 (0-0.6) 10^3/ul Absolute Basos (auto) 0.1 (0-0.2) 10^3/ul Absolute Nucleated RBC 0 10^3/ul Nucleated RBC % 0 Sodium 136 (135-145) mmol/L Potassium 4.2 (3.5-5.0) mmol/L Chloride 101 (101-111) mmol/L Carbon Dioxide 26 (22-32) mmol/L Anion Gap 9 (2-11) mmol/L BUN 6 (6-24) mg/dL Creatinine 0.49 L (0.51-0.95) mg/dL Est GFR ( Amer) 184.8 (>60) Est GFR (Non-Af Amer) 143.7 (>60) BUN/Creatinine Ratio 12.2 (8-20) Glucose 170 H (70-100) mg/dL Calcium 9.9 (8.6-10.3) mg/dL Total Bilirubin 0.40 (0.2-1.0) mg/dL AST 10 L (13-39) U/L ALT 9 (7-52) U/L Alkaline Phosphatase 106 H (34-104) U/L C-Reactive Protein 42.43 H (<8.01) mg/L Total Protein 8.0 (6.4-8.9) g/dL Albumin 3.7 (3.2-5.2) g/dL Globulin 4.3 H (2-4) g/dL Albumin/Globulin Ratio 0.9 L (1-3) Lipase < 10 L (11.0-82.0) U/L Urine Color Yellow Urine Appearance Clear Urine pH 6.0 (5-9) Ur Specific [place] 1.009 L (1.010-1.030) Urine Protein Negative (Negative) Urine Ketones Negative (Negative) Urine Blood Negative (Negative) Urine Nitrate Negative (Negative) Urine Bilirubin Negative (Negative) Urine Urobilinogen Negative (Negative) Ur Leukocyte Esterase Negative (Negative) Urine Glucose Negative (Negative) Result Diagrams: 02/08/18 18:29 02/08/18 18:29 Lab Statement: Any lab studies that have been ordered have been reviewed, and results considered in the medical decision making process. - Ultrasound No standard instances Ultrasound Interpretation: Positive (See Comments) - IMPRESSION: Sonographic findings are consistent with a right ovarian follicle that is slightly smaller when compared to the February 06, 2018 pelvic ultrasound. Ultrasound Interpretation Completed By: Radiologist MICHAEL Course/Dx - Course Course Of Treatment: 37-year-old female presents with abdominal pain for the past 4 days. She states that it is mostly in her right lower quadrant. She states that the intensity has increased. She denies any fevers. She admits to nausea but no vomiting. No pain with urination. No abnormal vaginal discharge. States she does not have a pelvic infection. Her cultures 2 days ago did come back pos for gardnerella. She denies any symptoms. She denies any pain with urination. No flank pain. No hematuria. She has been taking naproxen and norco without relief. she had had gallbladder removed. she denies any diarrhea or constipation. she is on nexplanon. no history of ovarian cyst prior. was seen here two days ago and dx with right ovarian cyst. not followed up with ob. on exam abd soft nontender when patient is distracted. no rebound. u/s shows improving cyst. labs normal for here with elevated wbc as her normal. do not suspect any other pathology as just had neg CT. patient states that pain hurts worst with probe for u/s. patient declined pelvic as just had one and is being treat for pelvic infection. cultures came back neg from two days ago. told to place heat on area and follow up with ob and patient understand and agrees with plan. - Diagnoses Differential Diagnoses - Female: Ovarian Cyst, Ovarian Torsion, Urinary Tract Infection Provider Diagnoses: Right ovarian cyst Discharge - Sign-Out/Discharge Documenting (check all that apply): Discharge/Admit/Transfer - Discharge Plan Condition: Good Disposition: HOME Patient Education Materials: Ovarian Cyst (ED) Referrals: Kimberlyn Dhillon MD [Primary Care Provider] - Additional Instructions: Take Tylenol or ibuprofen every [address] heat on the area Follow up with obgyn Return to ED if develop any new or worsening symptoms - Billing Disposition and Condition Condition: GOOD Disposition: Home
[2018-02-08 21:29] VITALS: BP 132/74
== END 2018-02-08 21:28 | disposition home or self-care (01) ==
LOC: ED 15:48
DX: N83.201 Unspecified ovarian cyst, right side (principal); I10 Essential (primary) hypertension; E11.9 Type 2 diabetes mellitus without complications; R00.0 Tachycardia, unspecified; F17.210 Nicotine dependence, cigarettes, uncomplicated; Z90.49 Acquired absence of other specified parts of digestive tract; Z79.4 Long term (current) use of insulin; Z79.899 Other long term (current) drug therapy; Z88.2 Allergy status to sulfonamides; Z88.8 Allergy status to other drugs, medicaments and biological substances; Z88.5 Allergy status to narcotic agent
CPT/HCPCS: 36415; 76830; 80053; 81003; 83690; 85025; 86140; 96374; 96375; 99283; J1885

== ENCOUNTER 2018-02-19 18:11 | Emergency (ER) | payer OTHER ==
[2018-02-19] MEDS ORDERED: NS 0.9% 1000 ML* 1,000 ML IV ONE (19:34)
[2018-02-19] MEDS ORDERED: Ketorolac INJ* 30 MG/ML 1 ML VIAL IV PUSH ONE (19:36)
[2018-02-19 19:59] LABS: ABS Basophils 0.1 10^3/ul (0-0.2); ABS Eosinophils 0.1 10^3/ul (0-0.6); ABS Lymphocytes 4.9 10^3/ul (1.0-4.8); ABS Monocytes 1.4 10^3/ul (0-0.8); ABS Nucleated RBC 0 10^3/ul; Eosinophil % 0.4 % (0-6); Hematocrit 38 % (35-47); Hemoglobin 12.8 g/dl (12.0-16.0); Lymphocyte % 21.7 % (25-47); Mean Corpuscular HGB Conc 34 g/dl (31-36); Mean Corpuscular Hemoglobin 29 pg (27-31); Mean Corpuscular Volume 86 fL (80-97); Mean Platelet Volume 6.5 um3 (7.4-10.4); Nucleated Red Blood Cells % 0; Platelet Count 420 10^3/ul (150-450); Red Blood Count 4.43 10^6/ul (4.00-5.40); Red Cell Distribution Width 13 % (10.5-15); White Blood Count 22.4 10^3/ul (3.5-10.8)
[2018-02-19 20:07] LABS: INR 0.98 (0.77-1.02)
[2018-02-19 20:20] LABS: EGFR Non-African American 120.7 (>60)
[2018-02-19] MEDS ORDERED: Iodixanol* (CONTRAST) 320 MG/ML 100 ML SDV IV ONE (20:30)
[2018-02-19] MEDS ORDERED: Morphine INJ* 2 MG/ML 1 ML CARPUJECT IV ONE (21:38)
[2018-02-19] MEDS ORDERED: Morphine VIAL* 4 MG/ML VIAL (1 ml vial) IV ONE (22:00)
--- NOTE | 2018-02-19 22:03 | RAD ---
Indication: Abdominal pain, diverticulitis. Contrast:Administered 141.0 ml of VISIPAQUE 320 mg/ml CT of the abdomen and pelvis was performed after IV contrast administration. No oral contrast was given. Coronal and sagittal reconstructed images were obtained. Comparison is made with previous exam dated October 14, 2017. Lung bases demonstrate no pleural fluid, nodules or masses. Heart is of normal size without evidence of pericardial effusion. Liver is normal in size. No focal lesions or intrahepatic duct dilatation is noted. Patient status post cholecystectomy. Common duct is not dilated. Pancreas demonstrates no mass or pancreatic duct dilatation. The spleen is normal in size. No adrenal lesions are noted. The kidneys demonstrate symmetric nephrograms without focal lesions. CT of the pelvis demonstrates normal appearing appendix. No dilated loops of bowel are noted. No definite diverticulitis is noted. The urinary bladder is unremarkable. No hernias are identified. The uterus is unremarkable. There is likely a follicular cyst in the right ovary measuring up to 1.7 cm. Urinary bladder is unremarkable. No hernias are noted. IMPRESSION: No definite evidence of diverticulitis. No abnormal masses or fluid collections are noted. No hernias are noted. Normal appendix.
[2018-02-19 23:17] LABS: Urine Appearance Clear; Urine Blood Negative (Negative); Urine Color Yellow; Urine Ketones Negative (Negative); Urine Protein 1+(30 mg/dL) (Negative); Urine Specific Gravity > 1.060 (1.010-1.030); Urine Urobilinogen Negative (Negative)
[2018-02-19] MEDS ORDERED: Fluconazole 150 MG (NF) 150 MG TAB PO ONE (23:42)
[2018-02-19] MEDS ORDERED: Fluconazole 100 MG TAB* TAB PO ONE (23:59)
--- NOTE | 2018-02-19 23:59 | ED ---
Eileen Richmond Rebecca, scribed for Gene Gonzalez on 02/19/18 at 1934 . Abdominal Pain/Female - HPI Summary HPI Summary: Pt is a 37 y/o F who presents to ED c/o LLQ abdominal pain. Pain became much worse last night, causing her to be unable to sleep and be in pain going up stairs. On triage, pain is severe, ranked 10/10 and characterized as pressure, describes as "feels like it exploded." Additionally c/o nausea and vaginal pain described as sore. Denies vomiting and vaginal discharge. Pt reports a Dx of ovarian cyst a few weeks ago. - History of Current Complaint Chief Complaint: EDAbdPain Stated Complaint: ABD PAIN Time Seen by Provider: 02/19/18 18:38 Hx Obtained From: Patient Hx Last Menstrual Period: nexplanon Onset/Duration: Still Present, Worse Since - Last night Severity Currently: Severe Pain Intensity: 10 Pain Scale Used: 0-10 Numeric Location: Discrete At: LLQ Character: Other: - Pressure Aggravating Factor(s): Nothing Alleviating Factor(s): Nothing Associated Signs and Symptoms: Positive: Nausea. Negative: Vaginal Discharge, Vomiting Allergies/Adverse Reactions: Allergies Allergy/AdvReac Type Severity Reaction Status Date / Time Adhesive Tape Allergy Rash Verified 02/19/18 18:30 asenapine Allergy Rash Verified 02/19/18 18:30 lurasidone [From Latuda] Allergy Hives Verified 02/19/18 18:30 metoclopramide [From Reglan] Allergy Abdominal Verified 02/19/18 18:30 Pain paclitaxel [From Taxol] Allergy Hives Verified 02/19/18 18:30 Sulfa (Sulfonamide Allergy Unknown Verified 02/19/18 18:30 Antibiotics) Reaction Details sulfamethoxazole Allergy Hives Verified 02/19/18 18:30 [From Bactrim] trimethoprim [From Bactrim] Allergy Hives Verified 02/19/18 18:30 nalbuphine [From Nubain] AdvReac Rash Verified 02/19/18 18:30 paroxetine [From Paxil] AdvReac Vomiting Verified 02/19/18 18:30 tramadol AdvReac Rash Verified 02/08/18 16:01 "metal" Allergy Swelling Uncoded 02/08/18 16:01 Bee venom Allergy Anaphylatic Uncoded 02/08/18 16:01 Shock zepeda Allergy Nausea And Uncoded 02/08/18 16:01 Vomiting PMH/Surg Hx/FS Hx/Imm Hx Endocrine/Hematology History: Reports: Hx Diabetes - type 2 dm on insulin Cardiovascular History: Reports: Hx Angina, Hx Hypercholesterolemia, Other Cardiovascular Problems/Disorders - vasculitis. tachycardia Denies: Hx Coronary Artery Disease, Hx Hypertension - ON BP MEDS FOR TACHY, Hx Myocardial Infarction, Hx Pacemaker/ICD, Hx Peripheral Vascular Disease, Hx Valvular Heart Disease Respiratory History: Reports: Hx Asthma, Hx Sleep Apnea - had CPAP, doesn't have machine anymore Denies: Hx Chronic Obstructive Pulmonary Disease (COPD), Other Respiratory Problems/Disorders GI History: Reports: Hx Crohn's Disease, Hx Gastroesophageal Reflux Disease, Hx Irritable Bowel, Other GI Disorders - gastroparesis History: Denies: Hx Dialysis, Hx Renal Disease, Other Problems/Disorders Musculoskeletal History: Reports: Other Musculoskeletal History - Ulnar nerve compression Right arm, Borderline personality disorder, PTSD Denies: Hx Arthritis, Hx Osteoporosis Sensory History: Reports: Hx Contacts or Glasses Denies: Hx Legally Blind, Hx Deafness, Hx Hearing Aid Opthamlomology History: Reports: Hx Contacts or Glasses Denies: Hx Legally Blind Neurological History: Reports: Hx Headaches, Hx Migraine Denies: Hx Seizures, Hx Transient Ischemic Attacks (TIA), Other Neuro Impairments/Disorders Psychiatric History: Reports: Hx Anxiety, Hx Depression, Hx Panic Disorder - PTSD, Hx Post Traumatic Stress Disorder, Hx Suicide Attempt, Other Psychiatric Issues/Disorders - Borderline Personality Disorder Denies: Hx Eating Disorder, Hx Bipolar Disorder - Surgical History Surgery Procedure, Year, and Place: Cholecystectomy;. Cardiac Catherterization- NO STENT; Hx Anesthesia Reactions: No - Immunization History Date of Tetanus Vaccine: utd Date of Influenza Vaccine: fall 2016 Infectious Disease History: No Infectious Disease History: Reports: Hx of Known/Suspected MRSA - treated. noncarrier now Denies: Traveled Outside the [place] in Last 30 Days - Family History Known Family History: Positive: Cardiac Disease, Diabetes, Other - blood clots ( mother), pacemaker (father) Negative: Hypertension - Social History Alcohol Use: None Hx Substance Use: Yes Substance Use Type: Reports: Marijuana Substance Use Comment - Amount & Last Used: 02/04/18 Hx Tobacco Use: Yes Smoking Status (MU): Light Every Day Tobacco Smoker Type: Cigarettes Amount Used/How Often: 7 cigarettes/day Have You Smoked in the Last Year: Yes - states that she last smoked yesterday Review of Systems Positive: Abdominal Pain, Nausea. Negative: Vomiting Positive: pain - Vaginal. Negative: discharge All Other Systems Reviewed And Are Negative: Yes Physical Exam - Summary Physical Exam Summary: Appearance: Morbidly obese, no pain distress Skin: warm, dry, reflects adequate perfusion Head/face: normal Eyes: EOMI, [place] ENT: normal Neck: supple, non-tender Respiratory: CTA, breath sounds present Cardiovascular: RRR, pulses symmetrical Abdomen: LLQ tenderness, soft Bowel: present Musculoskeletal: normal, strength/ROM intact Neuro: normal, sensory motor intact, A&Ox3 Pelvic: Erythema in the vulva and vaginal area [place] during pelvic was Noah (maryse). Triage Information Reviewed: Yes Vital Signs On Initial Exam: Initial Vitals Temp Pulse Resp BP Pulse Ox 97.2 F 88 14 117/73 99 02/19/18 18:26 02/19/18 18:26 02/19/18 18:26 02/19/18 18:26 02/19/18 18:26 Vital Signs Reviewed: Yes Diagnostics - Vital Signs Vital Signs Temp Pulse Resp BP Pulse Ox 02/19/18 18:26 97.2 F 88 14 117/73 99 - Laboratory Result Diagrams: 02/19/18 19:49 02/19/18 19:49 Lab Statement: Any lab studies that have been ordered have been reviewed, and results considered in the medical decision making process. - CT CT Abd/Pel CT Interpretation: No Acute Changes - No definite evidence of diverticulitis. No abnormal masses or fluid collections are noted. No hernias are noted. Normal appendix. ED physician reviewed this report. CT Interpretation Completed By: Radiologist Re-Evaluation - Re-Evaluation First Eval Re-Evaluation Time: 23:39 Comment: Did pelvic examination. Pt reports she was recently on Abx and now has vaginal irritation. Abdominal Pain Fem Course/Dx - Course Course Of Treatment: Pt is a 37 y/o F who presents to ED c/o LLQ abdominal pain , much worse last night, on triage, ranked 10/10. Characterized as pressure, describes as "feels like it exploded." Additionally c/o nausea and vaginal pain described as sore. Denies vomiting and vaginal discharge. Pt reports a Dx of ovarian cyst a few weeks ago. CT Abd/Pel reveals no acute findings. UA was done which had 1+ protein, 1+ glucose, and absent of bacteria, blood, WBC, and RBC. Blood work was done with results including a WBC of 22.4, troponin of 0.01 and lipase <10. She has chronic leukocytosis. She was recently on Abx and now c/o vaginal irritation. She will be D/C to home with Dx of abdominal pain and vulvovaginitis and Rx for voltarena and a follow up with her PCP. She understands and agrees. Allergies noted. - Diagnoses Provider Diagnoses: Abdominal pain, Vulvovaginitis Discharge - Sign-Out/Discharge Documenting (check all that apply): Discharge/Admit/Transfer - Discharge - Discharge Plan Condition: Stable Disposition: HOME Prescriptions: Diclofenac Sodium EC TAB* [Voltaren EC TAB*] 50 mg PO TID PRN #15 tab.ec MDD 3 PRN Reason: Pain Patient Education Materials: Vaginitis (ED), Acute Abdominal Pain (ED) Referrals: Kimberlyn Dhillon MD [Primary Care Provider] - 3 Days Additional Instructions: RETURN TO ED FOR ANY NEW OR WORSENING SYMPTOMS. The documentation as recorded by the Eileen ruelas Rebecca accurately reflects the service I personally performed and the decisions made by , Gene Gonzalez.
[2018-02-20 00:20] VITALS: BP 124/83
[2018-02-20] MEDS ORDERED: Fluconazole 100 MG TAB* TAB PO ONE (01:00)
== END 2018-02-20 00:15 | disposition home or self-care (01) ==
LOC: ED 18:11
DX: N76.0 Acute vaginitis (principal); R10.32 Left lower quadrant pain; F17.210 Nicotine dependence, cigarettes, uncomplicated; E11.8 Type 2 diabetes mellitus with unspecified complications; Z79.4 Long term (current) use of insulin; E78.00 Pure hypercholesterolemia, unspecified; G47.30 Sleep apnea, unspecified; I10 Essential (primary) hypertension
CPT/HCPCS: 36415; 74177; 80053; 81003; 81015; 83605; 83690; 84484; 84702; 85025; 85610; 85730; 96360; 96374; 96375; 99284; A9270-GY; J1885; J2270; Q9967

== ENCOUNTER 2018-03-10 10:36 | Emergency (ER) | payer MEDICAID, OTHER ==
--- NOTE | 2018-03-10 12:01 | ED ---
Laceration/Wound HPI - HPI Summary HPI Summary: 37 y/o female presents to the ED c/o constant pain and laceration @ L index finger s/p injury at around 10:45 am. Pt sliced her finger with a pair of scissors that slipped. PMHx DM. Past medications reviewed. Pain aggravated with movement. Last tetanus within one year - History of Current Complaint Stated Complaint: LT HAND LAC Time Seen by Provider: 03/10/18 12:00 Hx Obtained From: Patient Hx Last Menstrual Period: nexplanon Onset/Duration: Sudden Onset, Still Present Aggravating: Movement Pain Intensity: 7 Pain Scale Used: 0-10 Numeric Associated Signs & Symptoms: Pain - Additional Pertinent History Primary Care Physician: KARTHIKEYAN - Allergy/Home Medications Allergies/Adverse Reactions: Allergies Allergy/AdvReac Type Severity Reaction Status Date / Time Adhesive Tape Allergy Rash Verified 03/02/18 14:51 asenapine Allergy Rash Verified 03/02/18 14:51 lurasidone [From Latuda] Allergy Hives Verified 03/02/18 14:51 metoclopramide [From Reglan] Allergy Abdominal Verified 03/02/18 14:51 Pain paclitaxel [From Taxol] Allergy Hives Verified 03/02/18 14:51 Sulfa (Sulfonamide Allergy Unknown Verified 03/02/18 14:51 Antibiotics) Reaction Details sulfamethoxazole Allergy Hives Verified 03/02/18 14:51 [From Bactrim] trimethoprim [From Bactrim] Allergy Hives Verified 03/02/18 14:51 nalbuphine [From Nubain] AdvReac Rash Verified 03/02/18 14:51 paroxetine [From Paxil] AdvReac Vomiting Verified 03/02/18 14:51 tramadol AdvReac Rash Verified 03/02/18 14:51 "metal" Allergy Swelling Uncoded 02/08/18 16:01 Bee venom Allergy Anaphylatic Uncoded 02/08/18 16:01 Shock zepeda Allergy Nausea And Uncoded 02/08/18 16:01 Vomiting PMH/Surg Hx/FS Hx/Imm Hx Previously Healthy: No Endocrine/Hematology History: Reports: Hx Diabetes - type 2 dm on insulin Cardiovascular History: Reports: Hx Angina, Hx Hypercholesterolemia, Other Cardiovascular Problems/Disorders - vasculitis. tachycardia Denies: Hx Coronary Artery Disease, Hx Hypertension - ON BP MEDS FOR TACHY, Hx Myocardial Infarction, Hx Pacemaker/ICD, Hx Peripheral Vascular Disease, Hx Valvular Heart Disease Respiratory History: Reports: Hx Asthma, Hx Sleep Apnea - had CPAP, doesn't have machine anymore Denies: Hx Chronic Obstructive Pulmonary Disease (COPD), Other Respiratory Problems/Disorders GI History: Reports: Hx Crohn's Disease, Hx Gastroesophageal Reflux Disease, Hx Irritable Bowel, Other GI Disorders - gastroparesis History: Denies: Hx Dialysis, Hx Renal Disease, Other Problems/Disorders Musculoskeletal History: Reports: Other Musculoskeletal History - Ulnar nerve compression Right arm, Borderline personality disorder, PTSD Denies: Hx Arthritis, Hx Osteoporosis Sensory History: Reports: Hx Contacts or Glasses Denies: Hx Legally Blind, Hx Deafness, Hx Hearing Aid Opthamlomology History: Reports: Hx Contacts or Glasses Denies: Hx Legally Blind Neurological History: Reports: Hx Headaches, Hx Migraine Denies: Hx Seizures, Hx Transient Ischemic Attacks (TIA), Other Neuro Impairments/Disorders Psychiatric History: Reports: Hx Anxiety, Hx Depression, Hx Panic Disorder - PTSD, Hx Post Traumatic Stress Disorder, Hx Suicide Attempt, Other Psychiatric Issues/Disorders - Borderline Personality Disorder Denies: Hx Eating Disorder, Hx Bipolar Disorder - Surgical History Surgery Procedure, Year, and Place: Cholecystectomy;. Cardiac Catherterization- NO STENT; Hx Anesthesia Reactions: No - Immunization History Date of Tetanus Vaccine: utd Date of Influenza Vaccine: fall 2016 Infectious Disease History: No Infectious Disease History: Reports: Hx of Known/Suspected MRSA - treated. noncarrier now Denies: Traveled Outside the [place] in Last 30 Days - Family History Known Family History: Positive: Cardiac Disease, Diabetes, Other - blood clots ( mother), pacemaker (father) Negative: Hypertension - Social History Alcohol Use: None Hx Substance Use: Yes Substance Use Type: Reports: None Substance Use Comment - Amount & Last Used: Medical Marijuana Hx Tobacco Use: Yes Smoking Status (MU): Light Every Day Tobacco Smoker Type: Cigarettes Amount Used/How Often: 5 cigarettes/day Have You Smoked in the Last Year: Yes - states that she last smoked yesterday Review of Systems Constitutional: Negative Eyes: Negative ENT: Negative Cardiovascular: Negative Respiratory: Negative Gastrointestinal: Negative Genitourinary: Negative Musculoskeletal: Negative Positive: Other - lac @ R index finger Neurological: Negative Psychological: Normal All Other Systems Reviewed And Are Negative: Yes Physical Exam - Summary Physical Exam Summary: Appearance: Well-appearing, Well-nourished Skin: Warm. 1.2 cm diagonal, jagged laceration over volar surface of middle phalanx of 2nd finger. Eyes: Normal ENT: Normal Neck: Supple, nontender Respiratory: Clear to auscultation Cardiovascular: Regular rate, regular rhythm. Normal S1, S2. Abdomen: Soft, nontender Musculoskeletal: Normal, Strength/ROM Intact Neurological: Normal, A&Ox3 Psychiatric: Normal General: No acute distress Triage Information Reviewed: Yes Vital Signs On Initial Exam: Initial Vitals Temp Pulse Resp BP Pulse Ox 97.4 F 96 16 123/95 97 03/10/18 10:39 03/10/18 10:39 03/10/18 10:39 03/10/18 10:39 03/10/18 10:39 Vital Signs Reviewed: Yes Procedures - Laceration/Wound Repair 5 Location: upper extremity, Other - left index finger Description: Irregular Anesthesia: Local, 1.0%, [place] Length, Depth and Shape: jagged irregular Betadine Prep?: No Laceration/Wound Explored: clean Closure: Single Layer Debridement: minimal Suture Type: Nylon Number of Sutures: 5 Layer Closure?: No Sterile Dressing Applied?: Yes Diagnostics - Vital Signs Vital Signs Temp Pulse Resp BP Pulse Ox 03/10/18 10:39 97.4 F 96 16 123/95 97 - Laboratory Lab Statement: Any lab studies that have been ordered have been reviewed, and results considered in the medical decision making process. Laceration Repair Course/Dx - Course Course Of Treatment: wound repaired with 5 nylon sutures under local anesthesia , pt tolerated procedure well. F/u for wound check in 2 days - Clinical Impression Provider Diagnoses: Laceration of left index finger w/o foreign body w/o damage to nail Discharge - Sign-Out/Discharge Documenting (check all that apply): Patient Departure - Discharge Plan Condition: Stable Disposition: HOME Patient Education Materials: Finger Laceration (ED) Referrals: Kimberlyn Dhillon MD [Primary Care Provider] - Additional Instructions: PLEASE FOLLOW UP IN URGENT CARE PCP FOR WOUND CHECK IN 2 DAYS - Billing Disposition and Condition Condition: STABLE Disposition: Home
[2018-03-10] MEDS ORDERED: Bupivacaine 0.25% SDV* 30 ML INJ ONE (12:22)
[2018-03-10] MEDS ORDERED: Bupivacaine 0.5% W/EPI SDV* 30 ML VIAL ONE (12:29)
[2018-03-10] MEDS ORDERED: Lidocaine 1% INJ* 10 MG/ML 30 ML SDV INJ ONE (12:33)
[2018-03-10] MEDS ORDERED: Lidocaine 1% INJ* 10 MG/ML 30 ML SDV ONE (12:33)
[2018-03-10 13:00] VITALS: BP 136/74
== END 2018-03-10 12:59 | disposition home or self-care (01) ==
LOC: ED 10:36
DX: S61.213A Laceration without foreign body of left middle finger without damage to nail, initial encounter (principal); W45.8XXA Other foreign body or object entering through skin, initial encounter; Y92.9 Unspecified place or not applicable; R00.0 Tachycardia, unspecified; E11.9 Type 2 diabetes mellitus without complications; F17.210 Nicotine dependence, cigarettes, uncomplicated; Z79.4 Long term (current) use of insulin; Z79.899 Other long term (current) drug therapy; Z88.8 Allergy status to other drugs, medicaments and biological substances; Z88.3 Allergy status to other anti-infective agents
CPT/HCPCS: 12001; 99282

== ENCOUNTER 2018-03-18 16:12 | Inpatient (IN) | payer OTHER ==
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
[2018-03-18 16:48] LABS: ABS Basophils 0.1 10^3/ul (0-0.2); ABS Eosinophils 0.2 10^3/ul (0-0.6); ABS Monocytes 1.4 10^3/ul (0-0.8); ABS Neutrophils 13.9 10^3/ul (1.5-7.7); ABS Nucleated RBC 0 10^3/ul; Eosinophil % 1.2 % (0-6); Hematocrit 38 % (35-47); Hemoglobin 12.8 g/dl (12.0-16.0); Lymphocyte % 24.3 % (25-47); Mean Corpuscular HGB Conc 34 g/dl (31-36); Mean Corpuscular Hemoglobin 29 pg (27-31); Mean Corpuscular Volume 86 fL (80-97); Mean Platelet Volume 6.4 um3 (7.4-10.4); Nucleated Red Blood Cells % 0; Platelet Count 371 10^3/ul (150-450); Red Blood Count 4.44 10^6/ul (4.00-5.40); Red Cell Distribution Width 13 % (10.5-15); White Blood Count 20.7 10^3/ul (3.5-10.8)
[2018-03-18 17:02] LABS: EGFR Non-African American 125.8 (>60)
[2018-03-18] MEDS ORDERED: Insulin REGULAR(*) 1 UNITS UNIT IV PUSH ONE ×2 (17:26→20:03)
[2018-03-18] MEDS ORDERED: NS 0.9% 1000 ML* 1,000 ML IV ONE ×2 (17:26→20:03)
--- NOTE | 2018-03-18 17:36 | RAD ---
INDICATION: Cough. COMPARISON: Comparison is made with prior study from November 23, 2017. TECHNIQUE: 2 portable films of the chest were obtained. FINDINGS: Cardiac and mediastinal contours appear to be within normal limits. The lungs are clear. No pleural effusion is seen. IMPRESSION: NO EVIDENCE FOR ACUTE DISEASE.
[2018-03-18 17:45] LABS: Urine Appearance Clear; Urine Blood Negative (Negative); Urine Color Yellow; Urine Ketones Negative (Negative); Urine Protein Negative (Negative); Urine Specific Gravity 1.015 (1.010-1.030); Urine Urobilinogen Negative (Negative)
[2018-03-18 19:59] LABS: Hematocrit 38 % (35-47); Hemoglobin 12.3 g/dl (12.0-16.0); Mean Corpuscular HGB Conc 33 g/dl (31-36); Mean Corpuscular Hemoglobin 28 pg (27-31); Mean Corpuscular Volume 87 fL (80-97); Mean Platelet Volume 6.5 um3 (7.4-10.4); Platelet Count 328 10^3/ul (150-450); Red Blood Count 4.33 10^6/ul (4.00-5.40); Red Cell Distribution Width 13 % (10.5-15); White Blood Count 20.6 10^3/ul (3.5-10.8)
[2018-03-18 20:43] LABS: ABS Basophils 0.2 10^3/ul (0-0.2); ABS Eosinophils 0.2 10^3/ul (0-0.6); ABS Monocytes 1.6 10^3/ul (0-0.8); ABS Neutrophils 13.6 10^3/ul (1.5-7.7)
[2018-03-18 20:47] LABS: ABS Basophils 0.4 10^3/ul (0-0.2); ABS Neutrophils 12.4 10^3/ul (1.5-7.7); Monocytes % 9 % (0-7)
[2018-03-18] MEDS ORDERED: Calcium Carbonate CHEW TAB* 500 MG (TUMS) PO PRN (22:58)
[2018-03-18] MEDS ORDERED: Albuterol HFA INHALER* 8 gm MDI INH PRN (22:59)
[2018-03-18] MEDS ORDERED: Topiramate TAB(*) 25 MG PO SCH (23:30)
[2018-03-18] MEDS ORDERED: Ondansetron TAB* 4 MG PO PRN (23:36)
[2018-03-18] MEDS ORDERED: PTO:EPINEPHrine PEN ADULT(NF) 0.3 MG SYRINGE IM PRN (23:39)
[2018-03-18] MEDS ORDERED: Melatonin 3 MG TAB PO ONE (23:40)
[2018-03-18] MEDS: Metoprolol Tartrate TAB* 50 mg PO SCH (23:45)
[2018-03-18] MEDS: Gabapentin CAP(*) 300 MG PO SCH (23:45)
[2018-03-18] MEDS: Dicyclomine CAP* 10 MG PO SCH (23:45)
[2018-03-18] MEDS: Mupirocin 2% OINT* TUBE TOPICAL SCH (23:45)
[2018-03-18] MEDS: VILAZODONE 10 MG PO SCH (23:45)
[2018-03-18] MEDS: Melatonin 3 MG TAB PO SCH (23:45)
[2018-03-18] MEDS: Prazosin CAP* 1 MG PO SCH (23:45)
[2018-03-18] MEDS: Mycophenolate Mofetil TAB(*) 500 MG PO SCH (23:45)
[2018-03-18] MEDS: Atorvastatin* 80 MG TAB PO SCH (23:45)
[2018-03-18] MEDS: Topiramate TAB(*) 25 MG PO SCH (23:45)
[2018-03-19] MEDS ORDERED: Butalb/Acetamin/Caff TAB* 1 TAB PO ONE (08:30)
[2018-03-19] MEDS: CMCS:SitaGLIPtin (NF) 25 MG TAB PO SCH (09:11)
[2018-03-19] MEDS: Spironolactone TAB* 25 MG PO SCH (09:12)
[2018-03-19] MEDS: Dicyclomine CAP* 10 MG PO SCH ×2 (09:12→20:56)
[2018-03-19] MEDS: Magnesium Oxide TAB* 400 MG PO SCH (09:13)
[2018-03-19] MEDS: Metoprolol Tartrate TAB* 50 mg PO SCH ×2 (09:13→20:59)
[2018-03-19] MEDS: Gabapentin CAP(*) 300 MG PO SCH ×2 (09:13→20:57)
[2018-03-19] MEDS: Topiramate TAB(*) 25 MG PO SCH ×2 (09:14→21:02)
[2018-03-19] MEDS: Cetirizine* 10 MG TAB PO SCH (09:14)
[2018-03-19] MEDS: Ferrous Sulfate TAB* 325 MG PO SCH (09:14)
[2018-03-19] MEDS: Mycophenolate Mofetil TAB(*) 500 MG PO SCH ×2 (09:15→21:00)
[2018-03-19] MEDS: Dapsone TAB* 100 MG PO SCH (09:16)
[2018-03-19] MEDS: VILAZODONE 10 MG PO SCH ×2 (09:18→21:03)
[2018-03-19] MEDS: METRONIDAZOLE 0.75% TOPICAL SCH (09:19)
[2018-03-19] MEDS: Mupirocin 2% OINT* TUBE TOPICAL SCH ×2 (09:19→21:05)
[2018-03-19] MEDS: CMCS:Ketoconazole 2 % CREAM (NF) 30 GM TUBE TOPICAL SCH (09:20)
[2018-03-19] MEDS: Fluticasone/Vilanterol MDI(NF) 200/25 MDI INH SCH (09:20)
[2018-03-19] MEDS: BENZOYL PEROXIDE 5% TOPICAL SCH (09:20)
[2018-03-19] MEDS: Omeprazole CAP* 20 MG PO SCH (09:22)
[2018-03-19] MEDS ORDERED: Dextrose 50% Syringe 50 ML* 25 GM/50 ML SYRINGE IV PUSH PRN (11:18)
[2018-03-19] MEDS: Insulin GLARGINE(*) 1 UNITS UNIT SUBCUT SCH (12:00)
[2018-03-19] MEDS: Insulin LISPRO* 1 UNITS UNIT SUBCUT SCH ×4 (12:01→20:58)
[2018-03-19] MEDS ORDERED: SUMAtriptan TAB* 100 MG PO PRN (13:38)
[2018-03-19] MEDS ORDERED: Acetaminophen TAB* 325 MG PO PRN (13:44)
[2018-03-19] MEDS ORDERED: Albuterol 2.5 MG/3 ML NEB.SOL* (0.083%) INH PRN (14:01)
[2018-03-19] MEDS: Melatonin 3 MG TAB PO SCH (19:03)
[2018-03-19] MEDS: Atorvastatin* 80 MG TAB PO SCH (19:03)
[2018-03-19] MEDS: Prazosin CAP* 1 MG PO SCH (21:01)
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
--- NOTE | 2018-03-19 23:35 | CONS ---
CC: Dr. Barr; Dr. Penaloza; Dr. Kimberlyn Dhillon * CONSULTATION REPORT: DATE OF CONSULTATION: 03/19/18 CONSULTING PROVIDER: Dr. Barr of Psychiatry. MY ATTENDING WHILE IN THE HOSPITAL: Tiffanie Penaloza DO. PRIMARY CARE PROVIDER: Dr. Kimberlyn Dhillon. REASON FOR CONSULTATION: Co-management of comorbid medical conditions while admitted for psychiatric treatment. HISTORY OF PRESENT ILLNESS: Ms. 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 She had several psychiatric admissions previously for similar complaints. The patient is currently admitted and having significant hyperglycemia prompting our evaluation. The patient states that she has been having moderate control of her blood glucose at home, checking it 3 times daily , and having between 200 and 250. The patient has a basal rate of 3.6 on her insulin pump, which was started in June. The patient has previously been admitted to the hospital where she has been unable to use her insulin pump, so she left it at home. The patient denies any dizziness, significant increase in pain when she urinates, cough, abdominal pain, diarrhea or other signs of infection. The patient has been living in a fci and for over a year now and has help with her medications though she mainly handles them by herself. The patient had several episodes of hypoglycemia without obvious provoking factors. The patient is not able to state whether she had her insulin level adjusted after this. The patient no longer follows with Dr. Hurtado for endocrinology and is waiting to establish with a new job putter up and ticket preparer when they start in March, in [place]. The patient was able to be weaned off of her steroids in July for her vasculitis and continued on CellCept and dapsone which has been controlling her vasculitis very well according to the Dermatology consult. The patient has not needed any pulse dose of steroids since then. The patient's only recent medication changes were being started on Tylenol with Codeine No.3 for her impingement syndrome in her right shoulder with Orthopedics, as well as being given Imitrex for her headaches. The patient said that she has good results with Imitrex, which she does not take more than twice weekly, but she takes Fioricet additionally twice weekly. She has not had daily headaches. The patient has issues with chronic pain in her shoulder as well as new onset of painful neuropathy in her feet. The patient is on gabapentin for mood stabilization and has not been started on other medications for her neuropathy. The patient, while in the hospital, was found to have small open areas in her skin folds as well as on her back. The patient has recently lost over 100-pound after being weaned off of her steroids and having stopped her Seroquel. The patient otherwise has no complaints. PAST MEDICAL HISTORY: Type 2 diabetes mellitus, on insulin pump, morbid obesity , current BMI of 51, a 150-pound weight loss over the past 2 years, gastroparesis, borderline personality disorder, irritable bowel syndrome, polycystic ovarian syndrome, rosacea, thoracic and lumbosacral neuritis, GERD, hypertension, hyperlipidemia, migraine without aura, asthma, PTSD, anxiety, depression, vasculitis limited to the skin, sicca syndrome, keratoconjunctivitis , diabetic neuropathy, rotator cuff impingement, right-sided. PAST SURGICAL HISTORY: Status post cholecystectomy and tarsal tunnel release in November. MEDICATIONS: On admission are: 1. Claritin 10 mg p.o. q.a.m. 2. Metoprolol tartrate 50 mg p.o. b.i.d. 3. Viibryd 50 mg p.o. b.i.d. 4. CellCept 1500 mg p.o. b.i.d. 5. Spironolactone 50 mg p.o. q.a.m. 6. Prazosin 8 mg p.o. at bedtime. 7. Pantoprazole 40 mg p.o. q.a.m. 8. Dapsone 75 mg p.o. daily. 9. Atorvastatin 80 mg p.o. q.p.m. 10. Ambien 10 mg p.o. at bedtime. 11. Albuterol inhaler 2 puffs inhalation q.6 hours as needed. 12. Rexulti 1 mg p.o. at bedtime. 13. Naproxen 500 mg p.o. b.i.d. as needed. 14. Melatonin 5 mg p.o. at bedtime. 15. Lorazepam 1 mg p.o. b.i.d. as needed. 16. Januvia 50 mg p.o. q.a.m. 17. Loperamide 2 mg p.o. b.i.d. as needed. 18. Gabapentin 600 mg p.o. b.i.d. 19. Benadryl 25 mg p.o. daily as needed. 20. Bentyl 10 mg p.o. b.i.d. 21. Topamax 75 mg p.o. daily. 22. Ferrous sulfate 325 mg p.o. daily. 23. Calcium carbonate 1500 mg p.o. daily as needed. 24. Benzoyl peroxide 5% topical daily as needed. 25. Fioricet 1 tab q.8 hours as needed. 26. Breo 1 puff inhalation daily. 27. Ketoconazole 1 application topical daily. 28. MetroCream 0.75% topical daily. 29. Tylenol No. 3 with Codeine 1 tab p.o. b.i.d. as needed. 30. Bactroban 1 application topical b.i.d. on wounds. 31. Magnesium oxide 400 mg p.o. daily. 32. Zofran 4 mg p.o. q.6 hours as needed. 33. EpiPen 0.3 mg IM once as needed for allergic reaction. 34. Imitrex 100 mg p.o. biweekly as needed for migraine. 35. Nexplanon 68 mg implant. 36. Insulin pump, basal rate of 3.6 with sliding scale. ALLERGIES: ADHESIVE TAPE, ASENAPINE, LURASIDONE, METOCLOPRAMIDE, TAXOL, SULFA, BACTRIM, NUBAIN, PAROXETINE, TRAMADOL, BEE VENOM, BALTAZAR, and METAL. FAMILY HISTORY: The patient's mother at the age of 64 from heart disease. The patient's father is living and has a history of diabetes, pacemaker, and COPD. No family history of cancer. No known medical history in her siblings. SOCIAL HISTORY: The patient smokes 4 cigarettes a day. She has been trying to quit unsuccessfully, does not use pharmacologic aids. She has smoked for approximately 7 years. She does not use alcohol. She smokes marijuana every other day for control of her pain. She does not work. She lives in a fci. She would like her surrogate decision maker to be her mother, Subha Leigh, who is available at [phone]. REVIEW OF SYSTEMS: A 14-point review of systems was reviewed and is negative, except as above. PHYSICAL EXAMINATION: General: The patient is a 37-year-old morbidly obese female, who appears older than stated age, sitting comfortably in bed, in no acute distress. Vital Signs: At the time of evaluation temperature is 98.7, pulse rate 81, respiratory rate 16, oxygen saturation 99% on room air, blood pressure 114/57. HEENT: Head normocephalic, atraumatic. Sclerae anicteric. No conjunctival injection. Nasal mucosa moist. Oral mucosa moist. No oropharyngeal erythema, discharge or exudate. Neck: Supple, nontender. No lymphadenopathy. No carotid bruits auscultated. No JVD. Cardiac: Regular rate and rhythm. No clicks, murmurs, gallops or rubs. Pulses are 2+ in the bilateral dorsalis pedis, posterior tibialis and radial areas. Trace bilateral lower extremity edema noted. No calf tenderness bilaterally. Respiratory: Diminished breath sounds throughout. No wheezes, rales or rhonchi. Good air exchange bilaterally. Abdomen: Obese, nontender, nondistended. Bowel sounds present and normoactive in all 4 quadrants. No hepatosplenomegaly. Exam inhibited by patient's body habitus. Genitourinary: No suprapubic or CVA tenderness. Skin: Nonvisualized rashes on the skin folds per nursing staff as well as on the back. No signs of erythema or discharge. Neuro: Cranial nerves II through XII are intact. No focal deficits. Alert and oriented x3. Psychiatric: Pleasant and cooperative. DIAGNOSTIC STUDIES/LAB DATA: White blood cell count 10.6. Sodium 132, potassium 4.2, chloride 102, carbon dioxide 21, anion gap 9, BUN 11, creatinine 0.55, glucose 305, calcium 9.3, bilirubin 0.3, AST 10, ALT 9, alkaline phosphatase 116, albumin 3.5, total protein 7.3, globulin 3.8, TSH 0.88. Urine shows 1+ glucose, negative for infection. Urine shows presumptive positive for opiates, barbiturates, and cannabinoids. ASSESSMENT AND PLAN/IMPRESSION: Ms. Leigh is a 37-year-old female with a past medical history significant for diabetes mellitus, super morbid obesity, borderline personality disorder, and skin vasculitis, who is admitted for psychiatric admission related to suicidal gestures, presumably related to her borderline personality disorder. The patient is having hyperglycemia and does not have her insulin pump available. The patient will be controlled with basal insulin with sliding scale and carb counting. 1. Diabetes mellitus type 2: The patient is usually controlled on insulin pump. The patient recently stopped following with her job putter up and ticket preparer and will reestablish with a new job putter up and ticket preparer in March. The patient is super morbidly obese, but has lost over 100 pounds in the past year. It is likely the patient's insulin resistance has decreased with this. The patient was previously on 140 units of Lantus daily. This will be decreased to 40 b.i.d. at this point and her blood sugars will be continued to be monitored. The patient will be on sliding scale insulin with carb counting, with 1:10 carb ratio. This will also be adjusted as needed and excess insulin converted to basal insulin dosing based on preprandial values in the morning. The patient's most recent hemoglobin A1c was 10.5 on December 14, through her primary care doctor and a repeat is pending. The patient has, per her report, rather poor diabetic control. The patient has new neuropathy and/or gastroparesis, which will be monitored as outpatient. The patient is not currently having issues with the use of gabapentin for her psychiatric control. If the patient's insulin pump becomes available, the patient should be continued on her home insulin dosing with adjustments as needed. 2. Super morbid obesity: The patient has lost 150 pounds. The patient is motivated to continue losing weight. The patient will be on consistent carbohydrate diet and follow up with the [facility] as outpatient. 3. Borderline personality disorder with suicidal gestures: Continue management per primary team. Continue home psychiatric medications at this time. 4. Irritable bowel syndrome: Continue Bentyl. 5. Polycystic ovarian syndrome: Continue spironolactone. 6. Rosacea: Continue ketoconazole and Metrogel. 7. Gastroesophageal reflux disease: Continue pantoprazole. 8. Hypertension: Continue metoprolol. 9. Hyperlipidemia: Continue Lipitor. 10. Migraine: Continue Fioricet and Imitrex as needed for migraine. They should not be used more than twice a week respectively. Additional narcotic pain medication for headache should be avoided. 11. Wounds: The patient will have Wound Care consult. The patient follows with the [facility] as outpatient. Await their recommendations for wound care. 12. Asthma: Continue Dulera while in the hospital. 13. Vasculitis: Continue CellCept and dapsone, under good control. 14. Leukocytosis: Patient has stable leukocytosis which is being evaluated by Hematology outpatient. Patient should follow up for the results of testing. 15. DVT prophylaxis: The patient is low risk and will ambulate frequently. No pharmacologic prophylaxis is indicated. 16. Fluids, electrolytes, and nutrition: The patient will have consistent carbohydrate diet. 17. Disposition: Per primary team. TIME SPENT: Approximately 60 minutes were spent on this consultation, 30 of which was spent [id number] with the patient obtaining history and physical and discussing the treatment plan. The plan was discussed with my attending, Dr. Tiffanie Penaloza, and she is in agreement. SCOTT SCHREIBER [id number]/[facility] #: [id number] HOLLIE
[2018-03-20] MEDS: Insulin GLARGINE(*) 1 UNITS UNIT SUBCUT SCH ×2 (00:10→12:24)
[2018-03-20] MEDS: Metoprolol Tartrate TAB* 50 mg PO SCH ×2 (08:37→21:50)
[2018-03-20] MEDS: Spironolactone TAB* 25 MG PO SCH (08:37)
[2018-03-20] MEDS: Gabapentin CAP(*) 300 MG PO SCH ×2 (08:38→21:51)
[2018-03-20] MEDS: Topiramate TAB(*) 25 MG PO SCH ×2 (08:38→21:50)
[2018-03-20] MEDS: Dicyclomine CAP* 10 MG PO SCH ×2 (08:39→21:50)
[2018-03-20] MEDS: Ferrous Sulfate TAB* 325 MG PO SCH (08:39)
[2018-03-20] MEDS: Magnesium Oxide TAB* 400 MG PO SCH (08:39)
[2018-03-20] MEDS: Cetirizine* 10 MG TAB PO SCH (08:39)
[2018-03-20] MEDS: VILAZODONE 10 MG PO SCH ×2 (08:39→21:54)
[2018-03-20] MEDS: Mycophenolate Mofetil TAB(*) 500 MG PO SCH ×2 (08:41→21:50)
[2018-03-20] MEDS: CMCS:SitaGLIPtin (NF) 25 MG TAB PO SCH (08:41)
[2018-03-20] MEDS: Fluticasone/Vilanterol MDI(NF) 200/25 MDI INH SCH (08:44)
[2018-03-20] MEDS: Dapsone TAB* 100 MG PO SCH (08:44)
[2018-03-20] MEDS: Insulin LISPRO* 1 UNITS UNIT SUBCUT SCH ×7 (08:46→22:02)
[2018-03-20] MEDS: Omeprazole CAP* 20 MG PO SCH (08:48)
[2018-03-20] MEDS: CMCS:Ketoconazole 2 % CREAM (NF) 30 GM TUBE TOPICAL SCH (08:50)
[2018-03-20] MEDS: METRONIDAZOLE 0.75% TOPICAL SCH (08:51)
[2018-03-20] MEDS: BENZOYL PEROXIDE 5% TOPICAL SCH (08:51)
[2018-03-20] MEDS: Mupirocin 2% OINT* TUBE TOPICAL SCH ×2 (08:51→21:58)
[2018-03-20] MEDS ORDERED: Insulin GLARGINE(*) 1 UNITS UNIT SUBCUT SCH (15:43)
[2018-03-20] MEDS ORDERED: Hemorrhoidal OINT TOPICAL PRN (18:27)
[2018-03-20] MEDS: Atorvastatin* 80 MG TAB PO SCH (21:50)
[2018-03-20] MEDS: Prazosin CAP* 1 MG PO SCH (21:51)
[2018-03-20] MEDS: Melatonin 3 MG TAB PO SCH (21:53)
[2018-03-21] MEDS: Insulin GLARGINE(*) 1 UNITS UNIT SUBCUT SCH ×3 (00:39→20:51)
[2018-03-21] MEDS: Omeprazole CAP* 20 MG PO SCH (07:39)
[2018-03-21] MEDS: Insulin LISPRO* 1 UNITS UNIT SUBCUT SCH ×7 (08:13→20:54)
[2018-03-21] MEDS: CMCS:Ketoconazole 2 % CREAM (NF) 30 GM TUBE TOPICAL SCH (08:16)
[2018-03-21] MEDS: METRONIDAZOLE 0.75% TOPICAL SCH (08:17)
[2018-03-21] MEDS: BENZOYL PEROXIDE 5% TOPICAL SCH (08:17)
[2018-03-21] MEDS: Mupirocin 2% OINT* TUBE TOPICAL SCH ×2 (08:17→20:59)
[2018-03-21] MEDS: Spironolactone TAB* 25 MG PO SCH (09:12)
[2018-03-21] MEDS: Metoprolol Tartrate TAB* 50 mg PO SCH ×2 (09:12→20:58)
[2018-03-21] MEDS: Gabapentin CAP(*) 300 MG PO SCH ×2 (09:13→20:57)
[2018-03-21] MEDS: Topiramate TAB(*) 25 MG PO SCH ×2 (09:13→21:03)
[2018-03-21] MEDS: Magnesium Oxide TAB* 400 MG PO SCH ×2 (09:14→20:58)
[2018-03-21] MEDS: Ferrous Sulfate TAB* 325 MG PO SCH (09:14)
[2018-03-21] MEDS: Cetirizine* 10 MG TAB PO SCH (09:15)
[2018-03-21] MEDS: CMCS:SitaGLIPtin (NF) 25 MG TAB PO SCH (09:15)
[2018-03-21] MEDS: Mycophenolate Mofetil TAB(*) 500 MG PO SCH ×2 (09:16→20:59)
[2018-03-21] MEDS: Dapsone TAB* 100 MG PO SCH (09:18)
[2018-03-21] MEDS: Dicyclomine CAP* 10 MG PO SCH ×2 (09:20→20:56)
[2018-03-21] MEDS: Fluticasone/Vilanterol MDI(NF) 200/25 MDI INH SCH (09:26)
[2018-03-21] MEDS: VILAZODONE 10 MG PO SCH ×2 (10:15→21:04)
[2018-03-21] MEDS ORDERED: Zolpidem TAB* 5 MG PO PRN (11:23)
[2018-03-21] MEDS: Butalb/Acetamin/Caff TAB* 1 TAB PO PRN (12:36)
--- NOTE | 2018-03-21 16:26 | PN ---
Subjective - Subjective Date of Service: 03/21/18 Service Type: 92691 Hosp care 35 min high complexity Subjective: Jayy is a little irritable today. She finds it difficult to maintain pleasantries and feels like "crawling into a hole and dying." This is largely because of her living situation, which to be fair, sounds quite difficult to tolerate. I spoke with Ly Gentile, her animal care attendant, and Jayy today. I will look into applying some pressure to [place] if that is appropriate. Also I will look iinto [facility]'s curriculum and seeing if there are readings or worksheets for Jayy to work on. We discussed discharge as happening Wednesday, although Jayy would prefer . Objective - Appearance Appearance: Well Developed/Nourished, Obese Dysmorphic Features: No Hygiene: Normal Grooming: Fairly Well Kept - Behavior Psychomotor Activities: Normal Exhibits Abnormal Movement: No - Attitude and Relatedness Attitude and Relatedness: Needy Eye Contact: Good - Speech Quality: Unpressured Latencies: Normal Quantity: Appropriate - Mood Patient's Decription of Mood: "Upset" - Affect Observed Affect: Tearful - Thought Process Patient's Thought Process: Coherent Thought Content: Yes Passive Wish, Yes Suicidal Planning, No Homicidal Ideation, No Paranoid Ideation - Sensorium Experiencing Hallucinations: No, Sensorium is Clear Type of Hallucinations: Visual: Yes, Auditory: Yes, Command: Yes - Level of Consciousness Level of Consciousness: Alert Orientation: Yes Intact, Yes Orientated to Time, Yes Orientated to Place, Yes Orientated to Person - Impulse Control Impulse Control: Tenuous - Insight and Judgement Insight and Judgement: Good - Group Participation Particating in Group Activities: Yes - Medication Management Medication Management Adherence: Yes - Additional Observations Comments: Jayy is eager to feel better. She is taking medications and generally going to groups, although she does not go to groups when she has a "migraine." She is seen in the milieu in behavioral control. Assessment - Assessment Merits Inpatient Hospitalization: For Immediate Safety, For Stabilization, For Discharge Planning Clinical Impression: Jayy is in emotional distress. These exacerbations of her PTSD symptoms are reasonable, as the environment she describes in, indeed, difficult and would be difficult for anyone to tolerate, let alone someone with PTSD. She is feeling helpless and ignored and would like to have attention she needs to find a different place to live. Because this isn't happening, or not happening quickly enough for her, she is feeling as if she would like to end her life or cut herself. Plan - Plan Treatment Plan: Name: JAYY CANTU Birthdate: 1980 [id number] Continued Medication Management: Continue Outpt Medication Medications: Current Medications Acetaminophen (Tylenol Tab*) 650 mg PO Q6H PRN PRN Reason: PAIN Last Admin: 03/20/18 12:27 Dose: 650 mg Acetaminophen/Butalbital/Caffeine (Fioricet Tab*) 1 tab PO Q8H PRN PRN Reason: MIGRAINE HEADACHE Last Admin: 03/21/18 12:36 Dose: 1 tab Acetaminophen/Codeine Phosphate (Tylenol/Codeine 30 Mg Tab*) 1 tab PO BID PRN PRN Reason: pain>4/10 Albuterol (Ventolin Hfa Inhaler*) 2 puff INH Q6H PRN PRN Reason: SOB/WHEEZING Albuterol (Ventolin 2.5 Mg/3 Ml Neb.Smita*) 2.5 mg INH Q4H PRN PRN Reason: SOB/WHEEZING Atorvastatin Calcium (Lipitor*) 80 mg PO QPM [facility] Last Admin: 03/20/18 21:50 Dose: 80 mg Brexpiprazole (Rexulti 0.5 Mg Tab (Nf)) 1 mg PO DAILY [facility] Calcium Carbonate (Tums*) 1,500 mg PO DAILY PRN PRN Reason: GERD Cetirizine HCl (Zyrtec*) 10 mg PO QAM [facility] Last Admin: 03/21/18 09:15 Dose: 10 mg Dapsone (Dapsone Tab*) 75 mg PO DAILY [facility] Last Admin: 03/21/18 09:18 Dose: 75 mg Dextrose (D50w Syringe 50 Ml*) 12.5 gm IV PUSH .FOR FS < 60 - SS PRN PRN Reason: FS < 60 Dicyclomine HCl (Bentyl Cap*) 10 mg PO BID [facility] Last Admin: 03/21/18 09:20 Dose: 10 mg Epinephrine HCl (Epipen Adult(Nf)) 0.3 mg IM ONCE PRN PRN Reason: ALLERGY SYMPTOMS Ferrous Sulfate (Ferrous Sulfate Tab*) 325 mg PO DAILY [facility] Last Admin: 07/30/18 09:14 Dose: 325 mg Fluticasone/Vilanterol (Breo Ellipta Mdi 200/25(Nf)) 1 puff INH DAILY [facility] Last Admin: 03/21/18 09:26 Dose: Not Given Gabapentin (Neurontin Cap(*)) 600 mg PO BID [facility] Last Admin: 03/21/18 09:13 Dose: 600 mg Insulin Glargine (Lantus(*)) 45 units SUBCUT 0900,2100 [facility] Insulin Human Lispro (Humalog*) 0 units SUBCUT AC [facility]; Protocol Last Admin: 03/21/18 12:57 Dose: 6 units Insulin Human Lispro (Humalog*) 0 units SUBCUT ACHS [facility]; Protocol Last Admin: 03/21/18 13:00 Dose: 2 units Ketoconazole (Nizoral 2% Cream (Nf)) 1 applic TOPICAL DAILY [facility] Last Admin: 03/21/18 08:16 Dose: Not Given Magnesium Oxide (Magox 400 Tab*) 400 mg PO BEDTIME [facility] Melatonin (Melatonin) 6 mg PO DAILY@1900 [facility] Last Admin: 03/20/18 21:53 Dose: 6 mg Metoprolol Tartrate (Lopressor Tab*) 50 mg PO BID [facility] Last Admin: 03/21/18 09:12 Dose: 50 mg Metronidazole (Metrocream (Nf)) 1 applic TOPICAL DAILY [facility] Last Admin: 03/21/18 08:17 Dose: Not Given Mupirocin (Bactroban 2 % Oint*) 1 applic TOPICAL BID [facility] Last Admin: 03/21/18 08:17 Dose: Not Given Mycophenolate Mofetil (Cellcept Tab(*)) 1,500 mg PO BID [facility] Last Admin: 03/21/18 09:16 Dose: 1,500 mg Non Formulary ( (Benzoyl Peroxide 5%)) 1 dose TOPICAL DAILY [facility] Last Admin: 03/21/18 08:17 Dose: Not Given Omeprazole (Prilosec Cap*) 20 mg PO QAM@0730 [facility] Last Admin: 03/21/18 07:39 Dose: 20 mg Ondansetron HCl (Zofran Tab*) 4 mg PO Q6H PRN PRN Reason: NAUSEA Phenyleph/Shark Oil/Min Oil/Petrol (Preparation H*) 1 applic TOPICAL TID PRN PRN Reason: DIRECTED Prazosin HCl (Minipress Cap*) 8 mg PO BEDTIME [facility] Last Admin: 03/20/18 21:51 Dose: 8 mg Sitagliptin Phosphate (Januvia (Nf)) 50 mg PO QAM [facility] Last Admin: 03/21/18 09:15 Dose: 50 mg Spironolactone (Aldactone Tab*) 50 mg PO QAM [facility] Last Admin: 03/21/18 09:12 Dose: 50 mg Topiramate (Topamax(*)) 75 mg PO BID [facility] Last Admin: 03/21/18 09:13 Dose: 75 mg Vilazodone HCl (Viibryd (Nf)) 20 mg PO BID [facility] Last Admin: 03/21/18 10:15 Dose: 20 mg Zolpidem Tartrate (Ambien Tab*) 5 mg PO BEDTIME PRN PRN Reason: INSOMNIA - Discharge Plan Discharge Plan: Outpatient Follow Up Outpatient Program: [facility] Additional Comments: We are looking at discharging Jayy on Wednesday. In the meantime, we will explore whether appointments can be made to urge the process of getting Jayy into the next stage of [facility].
[2018-03-21] MEDS: Acetaminop/Codeine 30 MG TAB* 1 TAB (300 MG/30 MG) PO PRN (16:41)
--- NOTE | 2018-03-21 19:14 | PN ---
Subjective Date of Service: 03/21/18 Interval History: Patient reports that she is feeling well, no complaints of chest pain or shortness of breath. sitting in the chair in the dining [place]. denies n/v/d Family History: Unchanged from Admission Social History: Unchanged from Admission Past Medical History: Unchanged from Admission Objective Active Medications: Acetaminophen (Tylenol Tab*) 650 mg PO Q6H PRN PRN Reason: PAIN Last Admin: 03/20/18 12:27 Dose: 650 mg Acetaminophen/Butalbital/Caffeine (Fioricet Tab*) 1 tab PO Q8H PRN PRN Reason: MIGRAINE HEADACHE Last Admin: 03/21/18 12:36 Dose: 1 tab Acetaminophen/Codeine Phosphate (Tylenol/Codeine 30 Mg Tab*) 1 tab PO BID PRN PRN Reason: pain>4/10 Last Admin: 03/21/18 16:41 Dose: 1 tab Albuterol (Ventolin Hfa Inhaler*) 2 puff INH Q6H PRN PRN Reason: SOB/WHEEZING Albuterol (Ventolin 2.5 Mg/3 Ml Neb.Smita*) 2.5 mg INH Q4H PRN PRN Reason: SOB/WHEEZING Atorvastatin Calcium (Lipitor*) 80 mg PO QPM [facility] Last Admin: 03/20/18 21:50 Dose: 80 mg Brexpiprazole (Rexulti 0.5 Mg Tab (Nf)) 1 mg PO DAILY [facility] Calcium Carbonate (Tums*) 1,500 mg PO DAILY PRN PRN Reason: GERD Cetirizine HCl (Zyrtec*) 10 mg PO QAM [facility] Last Admin: 03/21/18 09:15 Dose: 10 mg Dapsone (Dapsone Tab*) 75 mg PO DAILY [facility] Last Admin: 03/21/18 09:18 Dose: 75 mg Dextrose (D50w Syringe 50 Ml*) 12.5 gm IV PUSH .FOR FS < 60 - SS PRN PRN Reason: FS < 60 Dicyclomine HCl (Bentyl Cap*) 10 mg PO BID [facility] Last Admin: 03/21/18 09:20 Dose: 10 mg Epinephrine HCl (Epipen Adult(Nf)) 0.3 mg IM ONCE PRN PRN Reason: ALLERGY SYMPTOMS Ferrous Sulfate (Ferrous Sulfate Tab*) 325 mg PO DAILY [facility] Last Admin: 07/30/18 09:14 Dose: 325 mg Fluticasone/Vilanterol (Breo Ellipta Mdi 200/25(Nf)) 1 puff INH DAILY [facility] Last Admin: 03/21/18 09:26 Dose: Not Given Gabapentin (Neurontin Cap(*)) 600 mg PO BID [facility] Last Admin: 03/21/18 09:13 Dose: 600 mg Insulin Glargine (Lantus(*)) 48 units SUBCUT 0900,2100 [facility] Insulin Human Lispro (Humalog*) 0 units SUBCUT AC [facility]; Protocol Last Admin: 03/21/18 17:36 Dose: 6 units Insulin Human Lispro (Humalog*) 0 units SUBCUT ACHS [facility]; Protocol Ketoconazole (Nizoral 2% Cream (Nf)) 1 applic TOPICAL DAILY [facility] Last Admin: 03/21/18 08:16 Dose: Not Given Magnesium Oxide (Magox 400 Tab*) 400 mg PO BEDTIME [facility] Melatonin (Melatonin) 6 mg PO DAILY@1900 [facility] Last Admin: 03/20/18 21:53 Dose: 6 mg Metoprolol Tartrate (Lopressor Tab*) 50 mg PO BID [facility] Last Admin: 03/21/18 09:12 Dose: 50 mg Metronidazole (Metrocream (Nf)) 1 applic TOPICAL DAILY [facility] Last Admin: 03/21/18 08:17 Dose: Not Given Mupirocin (Bactroban 2 % Oint*) 1 applic TOPICAL BID [facility] Last Admin: 03/21/18 08:17 Dose: Not Given Mycophenolate Mofetil (Cellcept Tab(*)) 1,500 mg PO BID [facility] Last Admin: 03/21/18 09:16 Dose: 1,500 mg Non Formulary ( (Benzoyl Peroxide 5%)) 1 dose TOPICAL DAILY [facility] Last Admin: 03/21/18 08:17 Dose: Not Given Omeprazole (Prilosec Cap*) 20 mg PO QAM@0730 [facility] Last Admin: 03/21/18 07:39 Dose: 20 mg Ondansetron HCl (Zofran Tab*) 4 mg PO Q6H PRN PRN Reason: NAUSEA Phenyleph/Shark Oil/Min Oil/Petrol (Preparation H*) 1 applic TOPICAL TID PRN PRN Reason: DIRECTED Prazosin HCl (Minipress Cap*) 8 mg PO BEDTIME [facility] Last Admin: 03/20/18 21:51 Dose: 8 mg Sitagliptin Phosphate (Januvia (Nf)) 50 mg PO QAM [facility] Last Admin: 03/21/18 09:15 Dose: 50 mg Spironolactone (Aldactone Tab*) 50 mg PO QAM [facility] Last Admin: 03/21/18 09:12 Dose: 50 mg Topiramate (Topamax(*)) 75 mg PO BID [facility] Last Admin: 03/21/18 09:13 Dose: 75 mg Vilazodone HCl (Viibryd (Nf)) 20 mg PO BID [facility] Last Admin: 03/21/18 10:15 Dose: 20 mg Zolpidem Tartrate (Ambien Tab*) 5 mg PO BEDTIME PRN PRN Reason: INSOMNIA Vital Signs - 8 hr 03/21/18 03/21/18 03/21/18 11:54 11:55 12:36 Respiratory 16 16 16 Rate 03/21/18 03/21/18 03/21/18 13:00 14:45 16:41 Respiratory 16 16 16 Rate Oxygen Devices in Use Now: None Appearance: appears comfortable sitting in the chair in the dining area Eyes: No Scleral Icterus Ears/Nose/Mouth/Throat: Clear Oropharnyx, Mucous Membranes Moist Neck: NL Appearance and Movements; NL JVP, Trachea Midline Respiratory: Symmetrical Chest Expansion and Respiratory Effort, Clear to Auscultation Cardiovascular: NL Sounds; No Murmurs; No JVD, No Edema Abdominal: NL Sounds; No Tenderness; No Distention Extremities: No Edema, No Clubbing, Cyanosis Skin: No Rash or Ulcers Neurological: Alert and Oriented x 3 Nutrition: Taking PO's Result Diagrams: 03/18/18 19:53 03/18/18 16:39 Assess/Plan/Problems-Billing Assessment: Ms. Leigh is a 37 y.o female with a PMHX for - Patient Problems (1) Diabetes Current Visit: No Status: Chronic Code(s): E11.9 - TYPE 2 DIABETES MELLITUS WITHOUT COMPLICATIONS SNOMED Code(s): 43344611 Comment: Poorly controlled Lispro SSI and CC Lantus dosing increased to 48 units BID ALC 9.9 (2) Major depressive disorder Current Visit: No Status: Acute Code(s): F32.9 - MAJOR DEPRESSIVE DISORDER, SINGLE EPISODE, UNSPECIFIED SNOMED Code(s): 099650306 Comment: Management per psych (3) HTN (hypertension) Current Visit: No Status: Chronic Code(s): I10 - ESSENTIAL (PRIMARY) HYPERTENSION SNOMED Code(s): 39500180 Comment: Normotensive Continue metoprolol (4) Full code status Current Visit: No Status: Acute Code(s): Z78.9 - OTHER SPECIFIED HEALTH STATUS SNOMED Code(s): 808344034 Status and Disposition: Disposition as per Psych
[2018-03-21] MEDS: Atorvastatin* 80 MG TAB PO SCH (20:55)
[2018-03-21] MEDS ORDERED: Insulin GLARGINE(*) 1 UNITS UNIT SUBCUT SCH (21:00)
[2018-03-21] MEDS: Prazosin CAP* 1 MG PO SCH (21:01)
[2018-03-21] MEDS: Melatonin 3 MG TAB PO SCH (21:05)
[2018-03-22] MEDS: Topiramate TAB(*) 25 MG PO SCH ×2 (08:11→21:38)
[2018-03-22] MEDS: Ferrous Sulfate TAB* 325 MG PO SCH (08:11)
[2018-03-22] MEDS: Cetirizine* 10 MG TAB PO SCH (08:12)
[2018-03-22] MEDS: Insulin LISPRO* 1 UNITS UNIT SUBCUT SCH ×8 (08:12→21:43)
[2018-03-22] MEDS: Metoprolol Tartrate TAB* 50 mg PO SCH ×2 (08:12→21:35)
[2018-03-22] MEDS: Omeprazole CAP* 20 MG PO SCH (08:12)
[2018-03-22] MEDS: Insulin GLARGINE(*) 1 UNITS UNIT SUBCUT SCH ×2 (08:13→21:43)
[2018-03-22] MEDS: Spironolactone TAB* 25 MG PO SCH (08:13)
[2018-03-22] MEDS: Gabapentin CAP(*) 300 MG PO SCH ×2 (08:14→21:33)
[2018-03-22] MEDS: Dapsone TAB* 100 MG PO SCH (08:15)
[2018-03-22] MEDS: Fluticasone/Vilanterol MDI(NF) 200/25 MDI INH SCH (08:19)
[2018-03-22] MEDS: Dicyclomine CAP* 10 MG PO SCH ×2 (08:19→21:33)
[2018-03-22] MEDS: Mycophenolate Mofetil TAB(*) 500 MG PO SCH ×2 (08:20→21:35)
[2018-03-22] MEDS: VILAZODONE 10 MG PO SCH ×2 (08:21→21:39)
[2018-03-22] MEDS: CMCS:Ketoconazole 2 % CREAM (NF) 30 GM TUBE TOPICAL SCH (08:43)
[2018-03-22] MEDS: BENZOYL PEROXIDE 5% TOPICAL SCH (08:44)
[2018-03-22] MEDS: METRONIDAZOLE 0.75% TOPICAL SCH (08:44)
[2018-03-22] MEDS: Mupirocin 2% OINT* TUBE TOPICAL SCH ×2 (08:44→21:35)
[2018-03-22] MEDS: Acetaminop/Codeine 30 MG TAB* 1 TAB (300 MG/30 MG) PO PRN (08:55)
[2018-03-22] MEDS: CMCS:SitaGLIPtin (NF) 25 MG TAB PO SCH (08:56)
[2018-03-22] MEDS ORDERED: BREXPIPRAZOLE 0.5 MG PO SCH (09:00)
[2018-03-22] MEDS ORDERED: Nicotine Inhaler* 10 MG AMP INH PRN (10:44)
[2018-03-22] MEDS ORDERED: Mouth Piece, Nicotine* 1 EACH CARTRIDGE INH PRN (10:44)
[2018-03-22] MEDS: Ibuprofen TAB* 600 MG PO PRN (13:40)
--- NOTE | 2018-03-22 13:51 | PN ---
Subjective - Subjective Date of Service: 03/22/18 Service Type: [id number] Hosp care 15 min low complexity Subjective: Jayy is found lying in bed half awake. She states she doesn't feel well. Her stomach is upset and she has pain in her back radiating to her neck and her chest hurts. She reveals that some of the discomfort could be due to menstrual cramps. We medicate her and she is encouraged to spend time in the milieu as that is why she came to the hospital. She does eventually get out of bed. Objective - Appearance Appearance: Well Developed/Nourished, Obese Dysmorphic Features: No Hygiene: Normal Grooming: Disheveled - Behavior Psychomotor Activities: Normal Exhibits Abnormal Movement: No - Attitude and Relatedness Attitude and Relatedness: Dismissive Eye Contact: Fair - Speech Quality: Unpressured Latencies: Normal Quantity: Terse - Mood Patient's Decription of Mood: "Irritable" - Affect Observed Affect: Constricted Affect Consistent with: Dysphoria - Thought Process Patient's Thought Process: Coherent Thought Content: Yes Passive Wish, Yes Suicidal Planning, No Homicidal Ideation, No Paranoid Ideation - Sensorium Experiencing Hallucinations: No, Sensorium is Clear Type of Hallucinations: Visual: No, Auditory: No, Command: No - Level of Consciousness Level of Consciousness: Lethargic Orientation: Yes Intact, Yes Orientated to Time, Yes Orientated to Place, Yes Orientated to Person - Impulse Control Impulse Control: Intact - Insight and Judgement Insight and Judgement: Fair - Group Participation Particating in Group Activities: No - Medication Management Medication Management Adherence: Yes - Additional Observations Comments: Jayy is eager to feel better. She is taking medications and generally going to groups, although she does not go to groups when she has a "migraine." Today her pain is in a different location. She seems quite dissatisfied at this time with her personal health. Assessment - Assessment Merits Inpatient Hospitalization: For Immediate Safety, For Stabilization, For Discharge Planning, Pending Safe DC Plan Clinical Impression: Jayy is in emotional distress. These exacerbations of her PTSD symptoms are reasonable, as the environment she describes in, indeed, difficult and would be difficult for anyone to tolerate, let alone someone with PTSD. She is feeling helpless and ignored and would like to have attention she needs to find a different place to live. Because this isn't happening, or not happening quickly enough for her, she is feeling as if she would like to end her life or cut herself. Still, Jayy has not made much of an effort at participating, stating she isn' t feeling well. Upon prompting she is able to participate. Plan - Plan Treatment Plan: Name: JAYY CANTU Birthdate: 1980 [id number] Medications: Current Medications Acetaminophen (Tylenol Tab*) 650 mg PO Q6H PRN PRN Reason: PAIN Last Admin: 03/20/18 12:27 Dose: 650 mg Acetaminophen/Butalbital/Caffeine (Fioricet Tab*) 1 tab PO Q8H PRN PRN Reason: MIGRAINE HEADACHE Last Admin: 03/21/18 12:36 Dose: 1 tab Acetaminophen/Codeine Phosphate (Tylenol/Codeine 30 Mg Tab*) 1 tab PO BID PRN PRN Reason: pain>4/10 Last Admin: 03/22/18 08:55 Dose: 1 tab Albuterol (Ventolin Hfa Inhaler*) 2 puff INH Q6H PRN PRN Reason: SOB/WHEEZING Albuterol (Ventolin 2.5 Mg/3 Ml Neb.Smita*) 2.5 mg INH Q4H PRN PRN Reason: SOB/WHEEZING Atorvastatin Calcium (Lipitor*) 80 mg PO QPM [facility] Last Admin: 03/21/18 20:55 Dose: 80 mg Brexpiprazole (Rexulti 0.5 Mg Tab (Nf)) 1 mg PO DAILY [facility] Last Admin: 03/22/18 08:18 Dose: Not Given Calcium Carbonate (Tums*) 1,500 mg PO DAILY PRN PRN Reason: GERD Last Admin: 03/22/18 13:41 Dose: 1,500 mg Cetirizine HCl (Zyrtec*) 10 mg PO QAM [facility] Last Admin: 03/22/18 08:12 Dose: 10 mg Dapsone (Dapsone Tab*) 75 mg PO DAILY [facility] Last Admin: 03/22/18 08:15 Dose: 75 mg Device (Nicotine Mouth Piece*) 1 each INH .USE WITH NICOTROL PRN PRN Reason: CRAVING Dextrose (D50w Syringe 50 Ml*) 12.5 gm IV PUSH .FOR FS < 60 - SS PRN PRN Reason: FS < 60 Dicyclomine HCl (Bentyl Cap*) 10 mg PO BID [facility] Last Admin: 03/22/18 08:19 Dose: 10 mg Epinephrine HCl (Epipen Adult(Nf)) 0.3 mg IM ONCE PRN PRN Reason: ALLERGY SYMPTOMS Ferrous Sulfate (Ferrous Sulfate Tab*) 325 mg PO DAILY [facility] Last Admin: 03/22/18 08:11 Dose: 325 mg Fluticasone/Vilanterol (Breo Ellipta Mdi 200/25(Nf)) 1 puff INH DAILY [facility] Last Admin: 03/22/18 08:19 Dose: Not Given Gabapentin (Neurontin Cap(*)) 600 mg PO BID [facility] Last Admin: 03/22/18 08:14 Dose: 600 mg Ibuprofen (Motrin Tab*) 600 mg PO Q8H PRN PRN Reason: PAIN Last Admin: 03/22/18 13:40 Dose: 600 mg Insulin Glargine (Lantus(*)) 48 units SUBCUT 0900,2100 [facility] Last Admin: 03/22/18 08:13 Dose: 48 units Insulin Human Lispro (Humalog*) 0 units SUBCUT AC [facility]; Protocol Last Admin: 03/22/18 12:26 Dose: Not Given Insulin Human Lispro (Humalog*) 0 units SUBCUT ACHS [facility]; Protocol Last Admin: 03/22/18 12:25 Dose: 3 units Ketoconazole (Nizoral 2% Cream (Nf)) 1 applic TOPICAL DAILY [facility] Last Admin: 03/22/18 08:43 Dose: Not Given Magnesium Oxide (Magox 400 Tab*) 400 mg PO BEDTIME [facility] Last Admin: 03/21/18 20:58 Dose: 400 mg Melatonin (Melatonin) 6 mg PO DAILY@1900 [facility] Last Admin: 03/21/18 21:05 Dose: 6 mg Metoprolol Tartrate (Lopressor Tab*) 50 mg PO BID [facility] Last Admin: 03/22/18 08:12 Dose: 50 mg Metronidazole (Metrocream (Nf)) 1 applic TOPICAL DAILY [facility] Last Admin: 03/22/18 08:44 Dose: Not Given Mupirocin (Bactroban 2 % Oint*) 1 applic TOPICAL BID [facility] Last Admin: 03/22/18 08:44 Dose: Not Given Mycophenolate Mofetil (Cellcept Tab(*)) 1,500 mg PO BID [facility] Last Admin: 03/22/18 08:20 Dose: 1,500 mg Nicotine (Nicotine Inhaler*) 10 mg INH Q2H PRN PRN Reason: CRAVING Non Formulary ( (Benzoyl Peroxide 5%)) 1 dose TOPICAL DAILY [facility] Last Admin: 03/22/18 08:44 Dose: Not Given Omeprazole (Prilosec Cap*) 20 mg PO QAM@0730 [facility] Last Admin: 03/22/18 08:12 Dose: 20 mg Ondansetron HCl (Zofran Tab*) 4 mg PO Q6H PRN PRN Reason: NAUSEA Phenyleph/Shark Oil/Min Oil/Petrol (Preparation H*) 1 applic TOPICAL TID PRN PRN Reason: DIRECTED Prazosin HCl (Minipress Cap*) 8 mg PO BEDTIME [facility] Last Admin: 03/21/18 21:01 Dose: 8 mg Sitagliptin Phosphate (Januvia (Nf)) 50 mg PO QAM [facility] Last Admin: 03/22/18 08:56 Dose: 50 mg Spironolactone (Aldactone Tab*) 50 mg PO QAM [facility] Last Admin: 03/22/18 08:13 Dose: 50 mg Topiramate (Topamax(*)) 75 mg PO BID [facility] Last Admin: 03/22/18 08:11 Dose: 75 mg Vilazodone HCl (Viibryd (Nf)) 20 mg PO BID [facility] Last Admin: 03/22/18 08:21 Dose: 20 mg Zolpidem Tartrate (Ambien Tab*) 5 mg PO BEDTIME PRN PRN Reason: INSOMNIA - Discharge Plan Discharge Plan: Outpatient [facility] Additional Comments: We are looking at discharging Jayy on Wednesday. In the meantime, we will explore whether appointments can be made to urge the process of getting Jayy into the next stage of [facility]. Rexulti, her antidepressant/antipsychotic, is not available at this hospital and has been temporarily discontinued.
[2018-03-22] MEDS: Atorvastatin* 80 MG TAB PO SCH (21:31)
[2018-03-22] MEDS: ARIPiprazole TAB* 5 MG PO SCH (21:32)
[2018-03-22] MEDS: Melatonin 3 MG TAB PO SCH (21:32)
[2018-03-22] MEDS: Magnesium Oxide TAB* 400 MG PO SCH (21:34)
[2018-03-22] MEDS: Prazosin CAP* 1 MG PO SCH (21:36)
[2018-03-23] MEDS: Insulin LISPRO* 1 UNITS UNIT SUBCUT SCH ×7 (08:24→21:55)
[2018-03-23] MEDS: Insulin GLARGINE(*) 1 UNITS UNIT SUBCUT SCH ×2 (08:50→21:56)
[2018-03-23] MEDS: Spironolactone TAB* 25 MG PO SCH (08:57)
[2018-03-23] MEDS: Metoprolol Tartrate TAB* 50 mg PO SCH ×2 (08:57→21:43)
[2018-03-23] MEDS: Topiramate TAB(*) 25 MG PO SCH ×2 (08:57→21:46)
[2018-03-23] MEDS: Prazosin CAP* 1 MG PO SCH ×2 (08:57→21:45)
[2018-03-23] MEDS: Ferrous Sulfate TAB* 325 MG PO SCH (08:58)
[2018-03-23] MEDS: Gabapentin CAP(*) 300 MG PO SCH ×2 (08:58→21:42)
[2018-03-23] MEDS: Cetirizine* 10 MG TAB PO SCH (08:58)
[2018-03-23] MEDS: Dapsone TAB* 100 MG PO SCH (08:59)
[2018-03-23] MEDS: Dicyclomine CAP* 10 MG PO SCH ×2 (09:00→21:41)
[2018-03-23] MEDS: Fluticasone/Vilanterol MDI(NF) 200/25 MDI INH SCH (09:04)
[2018-03-23] MEDS: Mupirocin 2% OINT* TUBE TOPICAL SCH ×2 (09:05→21:44)
[2018-03-23] MEDS: METRONIDAZOLE 0.75% TOPICAL SCH (09:05)
[2018-03-23] MEDS: VILAZODONE 10 MG PO SCH ×2 (09:05→21:47)
[2018-03-23] MEDS: CMCS:Ketoconazole 2 % CREAM (NF) 30 GM TUBE TOPICAL SCH (09:05)
[2018-03-23] MEDS: BENZOYL PEROXIDE 5% TOPICAL SCH (09:05)
[2018-03-23] MEDS: CMCS:SitaGLIPtin (NF) 25 MG TAB PO SCH (09:06)
[2018-03-23] MEDS: Mycophenolate Mofetil TAB(*) 500 MG PO SCH ×2 (09:07→21:44)
[2018-03-23] MEDS: Butalb/Acetamin/Caff TAB* 1 TAB PO PRN (09:09)
[2018-03-23] MEDS: Omeprazole CAP* 20 MG PO SCH (09:09)
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
[2018-03-23] MEDS: Acetaminop/Codeine 30 MG TAB* 1 TAB (300 MG/30 MG) PO PRN (12:42)
[2018-03-23] MEDS: Melatonin 3 MG TAB PO SCH (21:40)
[2018-03-23] MEDS: Atorvastatin* 80 MG TAB PO SCH (21:40)
[2018-03-23] MEDS: ARIPiprazole TAB* 5 MG PO SCH (21:40)
[2018-03-23] MEDS: Magnesium Oxide TAB* 400 MG PO SCH (21:43)
--- NOTE | 2018-03-23 22:37 | PN ---
Subjective Date of Service: 03/23/18 Interval History: No complaints today, blood sugars improved with insulin changes. Denies chest pain or shortness of breath. Denies abd pain, n/v/d. Family History: Unchanged from Admission Social History: Unchanged from Admission Past Medical History: Unchanged from Admission Objective Active Medications: Acetaminophen (Tylenol Tab*) 650 mg PO Q6H PRN PRN Reason: PAIN Last Admin: 03/20/18 12:27 Dose: 650 mg Acetaminophen/Butalbital/Caffeine (Fioricet Tab*) 1 tab PO Q8H PRN PRN Reason: MIGRAINE HEADACHE Last Admin: 03/23/18 09:09 Dose: 1 tab Acetaminophen/Codeine Phosphate (Tylenol/Codeine 30 Mg Tab*) 1 tab PO BID PRN PRN Reason: pain>4/10 Last Admin: 03/23/18 12:42 Dose: 1 tab Albuterol (Ventolin Hfa Inhaler*) 2 puff INH Q6H PRN PRN Reason: SOB/WHEEZING Albuterol (Ventolin 2.5 Mg/3 Ml Neb.Smita*) 2.5 mg INH Q4H PRN PRN Reason: SOB/WHEEZING Aripiprazole (Abilify Tab*) 5 mg PO BEDTIME [facility] Last Admin: 03/23/18 21:40 Dose: 5 mg Atorvastatin Calcium (Lipitor*) 80 mg PO QPM [facility] Last Admin: 03/23/18 21:40 Dose: 80 mg Calcium Carbonate (Tums*) 1,500 mg PO DAILY PRN PRN Reason: GERD Last Admin: 03/22/18 13:41 Dose: 1,500 mg Cetirizine HCl (Zyrtec*) 10 mg PO QAM [facility] Last Admin: 03/23/18 08:58 Dose: 10 mg Dapsone (Dapsone Tab*) 75 mg PO DAILY [facility] Last Admin: 03/23/18 08:59 Dose: 75 mg Device (Nicotine Mouth Piece*) 1 each INH .USE WITH NICOTROL PRN PRN Reason: CRAVING Dextrose (D50w Syringe 50 Ml*) 12.5 gm IV PUSH .FOR FS < 60 - SS PRN PRN Reason: FS < 60 Dicyclomine HCl (Bentyl Cap*) 10 mg PO BID [facility] Last Admin: 03/23/18 21:41 Dose: 10 mg Epinephrine HCl (Epipen Adult(Nf)) 0.3 mg IM ONCE PRN PRN Reason: ALLERGY SYMPTOMS Ferrous Sulfate (Ferrous Sulfate Tab*) 325 mg PO DAILY [facility] Last Admin: 03/23/18 08:58 Dose: 325 mg Fluticasone/Vilanterol (Breo Ellipta Mdi 200/25(Nf)) 1 puff INH DAILY [facility] Last Admin: 03/23/18 09:04 Dose: Not Given Gabapentin (Neurontin Cap(*)) 600 mg PO BID [facility] Last Admin: 03/23/18 21:42 Dose: 600 mg Ibuprofen (Motrin Tab*) 600 mg PO Q8H PRN PRN Reason: PAIN Last Admin: 03/22/18 13:40 Dose: 600 mg Insulin Glargine (Lantus(*)) 48 units SUBCUT 0900,2100 [facility] Last Admin: 03/23/18 21:56 Dose: 48 units Insulin Human Lispro (Humalog*) 0 units SUBCUT AC [facility]; Protocol Last Admin: 03/23/18 17:18 Dose: 4 units Insulin Human Lispro (Humalog*) 0 units SUBCUT ACHS [facility]; Protocol Last Admin: 03/23/18 21:55 Dose: 3 units Ketoconazole (Nizoral 2% Cream (Nf)) 1 applic TOPICAL DAILY [facility] Last Admin: 03/23/18 09:05 Dose: Not Given Magnesium Oxide (Magox 400 Tab*) 400 mg PO BEDTIME [facility] Last Admin: 03/23/18 21:43 Dose: 400 mg Melatonin (Melatonin) 9 mg PO DAILY@1900 [facility] Last Admin: 03/23/18 21:40 Dose: 9 mg Metoprolol Tartrate (Lopressor Tab*) 50 mg PO BID [facility] Last Admin: 03/23/18 21:43 Dose: 50 mg Metronidazole (Metrocream (Nf)) 1 applic TOPICAL DAILY [facility] Last Admin: 03/23/18 09:05 Dose: Not Given Mupirocin (Bactroban 2 % Oint*) 1 applic TOPICAL BID [facility] Last Admin: 03/23/18 21:44 Dose: Not Given Mycophenolate Mofetil (Cellcept Tab(*)) 1,500 mg PO BID [facility] Last Admin: 03/23/18 21:44 Dose: 1,500 mg Nicotine (Nicotine Inhaler*) 10 mg INH Q2H PRN PRN Reason: CRAVING Non Formulary ( (Benzoyl Peroxide 5%)) 1 dose TOPICAL DAILY [facility] Last Admin: 03/23/18 09:05 Dose: Not Given Omeprazole (Prilosec Cap*) 20 mg PO QAM@0730 [facility] Last Admin: 03/23/18 09:09 Dose: 20 mg Ondansetron HCl (Zofran Tab*) 4 mg PO Q6H PRN PRN Reason: NAUSEA Phenyleph/Shark Oil/Min Oil/Petrol (Preparation H*) 1 applic TOPICAL TID PRN PRN Reason: DIRECTED Last Admin: 03/23/18 17:17 Dose: 1 applic Prazosin HCl (Minipress Cap*) 8 mg PO BEDTIME [facility] Last Admin: 03/23/18 21:45 Dose: 8 mg Prazosin HCl (Minipress Cap*) 2 mg PO DAILY [facility] Last Admin: 03/23/18 08:57 Dose: 2 mg Sitagliptin Phosphate (Januvia (Nf)) [facility] [place] Admin: 03/23/18 09:06 Dose: 50 mg Spironolactone (Aldactone Tab*) 50 mg PO QAM [facility] Last Admin: 03/23/18 08:57 Dose: 50 mg Topiramate (Topamax(*)) 75 mg PO BID [facility] Last Admin: 03/23/18 21:46 Dose: 75 mg Vilazodone HCl (Viibryd (Nf)) 20 mg PO BID [facility] Last Admin: 03/23/18 21:47 Dose: 20 mg Zolpidem Tartrate (Ambien Tab*) 5 mg PO BEDTIME PRN PRN Reason: INSOMNIA Vital Signs - 8 hr 03/23/18 03/23/18 03/23/18 14:57 15:08 21:41 Respiratory 18 18 16 Rate 03/23/18 21:42 Respiratory 16 Rate Oxygen Devices in Use Now: Nasal Cannula Appearance: appears comfotable sitting in the chair, no acute distress Eyes: No Scleral Icterus Ears/Nose/Mouth/Throat: Clear Oropharnyx, Mucous Membranes Moist Neck: NL Appearance and Movements; NL JVP, Trachea Midline Respiratory: Symmetrical Chest Expansion and Respiratory Effort, Clear to Auscultation Cardiovascular: NL Sounds; No Murmurs; No JVD Abdominal: NL Sounds; No Tenderness; No Distention Extremities: No Edema, No Clubbing, Cyanosis Neurological: Alert and Oriented x 3 Nutrition: Taking PO's Result Diagrams: 03/18/18 19:53 03/18/18 16:39 Assess/Plan/Problems-Billing Assessment: Ms. Leigh is a 37 y.o female with a PMHX for - Patient Problems (1) Diabetes Current Visit: No Status: Chronic Code(s): E11.9 - TYPE 2 DIABETES MELLITUS WITHOUT COMPLICATIONS SNOMED Code(s): 98233110 Comment: Poorly controlled blood sugar improved with insulin adjustments- 157-204- patient reports that her blood sugars at home run between 150- 200's Lispro SSI and CC Lantus dosing increased to 48 units BID ALC 9.9 (2) Major depressive disorder Current Visit: No Status: Acute Code(s): F32.9 - MAJOR DEPRESSIVE DISORDER, SINGLE EPISODE, UNSPECIFIED SNOMED Code(s): 887361584 Comment: Management per psych (3) HTN (hypertension) Current Visit: No Status: Chronic Code(s): I10 - ESSENTIAL (PRIMARY) HYPERTENSION SNOMED Code(s): 31401559 Comment: Normotensive Continue metoprolol (4) Full code status Current Visit: No Status: Acute Code(s): Z78.9 - OTHER SPECIFIED HEALTH STATUS SNOMED Code(s): 235419566 Status and Disposition: Disposition as per Psych We will sign off at this time. please contact us for further management if the patient experiences hyperglycemia or hypoglycemic episodes.
[2018-03-24] MEDS: Acetaminop/Codeine 30 MG TAB* 1 TAB (300 MG/30 MG) PO PRN (07:40)
[2018-03-24] MEDS: Cetirizine* 10 MG TAB PO SCH (08:38)
[2018-03-24] MEDS: Dapsone TAB* 100 MG PO SCH (08:38)
[2018-03-24] MEDS: Dicyclomine CAP* 10 MG PO SCH ×2 (08:39→21:36)
[2018-03-24] MEDS: Fluticasone/Vilanterol MDI(NF) 200/25 MDI INH SCH (08:40)
[2018-03-24] MEDS: Gabapentin CAP(*) 300 MG PO SCH ×2 (08:40→21:31)
[2018-03-24] MEDS: Ferrous Sulfate TAB* 325 MG PO SCH (08:40)
[2018-03-24] MEDS: Metoprolol Tartrate TAB* 50 mg PO SCH ×2 (08:41→21:32)
[2018-03-24] MEDS: CMCS:Ketoconazole 2 % CREAM (NF) 30 GM TUBE TOPICAL SCH (08:41)
[2018-03-24] MEDS: METRONIDAZOLE 0.75% TOPICAL SCH (08:41)
[2018-03-24] MEDS: Mycophenolate Mofetil TAB(*) 500 MG PO SCH ×2 (08:42→21:38)
[2018-03-24] MEDS: Mupirocin 2% OINT* TUBE TOPICAL SCH ×2 (08:42→22:11)
[2018-03-24] MEDS: BENZOYL PEROXIDE 5% TOPICAL SCH (08:43)
[2018-03-24] MEDS: CMCS:SitaGLIPtin (NF) 25 MG TAB PO SCH (08:43)
[2018-03-24] MEDS: Spironolactone TAB* 25 MG PO SCH (08:43)
[2018-03-24] MEDS: Prazosin CAP* 1 MG PO SCH ×2 (08:43→22:11)
[2018-03-24] MEDS: VILAZODONE 10 MG PO SCH ×2 (08:44→21:36)
[2018-03-24] MEDS: Topiramate TAB(*) 25 MG PO SCH ×2 (08:44→21:32)
[2018-03-24] MEDS: Omeprazole CAP* 20 MG PO SCH (08:45)
[2018-03-24] MEDS: Insulin LISPRO* 1 UNITS UNIT SUBCUT SCH ×7 (08:47→22:09)
[2018-03-24] MEDS: Insulin GLARGINE(*) 1 UNITS UNIT SUBCUT SCH ×2 (08:48→22:10)
--- NOTE | 2018-03-24 13:03 | PN ---
MHU: Group Therapy Note - Service Type Service Type: 82460 Group Psychotherapy - Cognitive Behavioral Group Therapy ( CBT):Patient was attentive and participatory in CBT programming this morning, and remained in good behavioral control. Patient expressed positive insights regarding relevant treatment interventions and goals.
--- NOTE | 2018-03-24 13:54 | PN ---
Subjective - Subjective Date of Service: 03/24/18 Service Type: 04442 Hosp care 25 min moderate complexity Subjective: Jayy feels like she is continuing to struggle with suicidal ideation. She doesn't want to harm herself, but she is certain that the first thing she would do once she got home is to overdose. She had an image pop into her mind of people finding her body. In exchange for allowing her to stay, she agreed to make a piece of art that would represent a positive thing someone would find in her room even if she was suffering, as a positive option to her overdose. Objective - Appearance Appearance: Obese Dysmorphic Features: No Hygiene: Normal Grooming: Disheveled - Behavior Psychomotor Activities: Normal Exhibits Abnormal Movement: No - Attitude and Relatedness Attitude and Relatedness: Needy Eye Contact: Fair - Speech Quality: Unpressured Latencies: Normal Quantity: Appropriate - Mood Patient's Decription of Mood: "Okay" - Affect Observed Affect: Tearful - Thought Process Patient's Thought Process: Coherent, Goal Directed Thought Content: Yes Passive Wish, Yes Suicidal Planning, Yes Homicidal Ideation - Feels like "It's me or her who will .", No Paranoid Ideation - Sensorium Experiencing Hallucinations: No, Sensorium is Clear Type of Hallucinations: Visual: No, Auditory: No, Command: No - Level of Consciousness Level of Consciousness: Alert Orientation: Yes Intact, Yes Orientated to Time, Yes Orientated to Place, Yes Orientated to Person - Impulse Control Impulse Control: Tenuous - Insight and Judgement Insight and Judgement: Fair - Group Participation Particating in Group Activities: Yes - Medication Management Medication Management Adherence: Yes - Additional Observations Comments: Jayy is eager to feel better. She seems quite dissatisfied at this time with her personal health as well as her private life wondering why God would burden her with such problems. Today she requested Ativan and received half of what she asked for. The vision she had of herself overdosed and or dying was alarming to her. She states that's never happened before. Assessment - Assessment Merits Inpatient Hospitalization: For Immediate Safety Inpatient DSM-V Dx: F43.12 Clinical Impression: Jayy is in emotional distress. These exacerbations of her PTSD symptoms are reasonable, as the environment she describes are, indeed, difficult and would be difficult for anyone to tolerate, let alone someone with PTSD. She is feeling helpless and ignored and would like to have attention she needs to find a different place to live. Because this isn't happening, or not happening quickly enough for her, she is feeling as if she would like to end her life or cut herself. Jayy has made efforts to be part of the group and participate. She is tired of DBT, so instead we will work on improving and playing to her self-identified strengths: arts and crafts. Plan - Plan Treatment Plan: Name: JAYY CANTU Birthdate: 1980 [id number] Medications: Current Medications Acetaminophen (Tylenol Tab*) 650 mg PO Q6H PRN PRN Reason: PAIN Last Admin: 03/20/18 12:27 Dose: 650 mg Acetaminophen/Butalbital/Caffeine (Fioricet Tab*) 1 tab PO Q8H PRN PRN Reason: MIGRAINE HEADACHE Last Admin: 03/23/18 09:09 Dose: 1 tab Acetaminophen/Codeine Phosphate (Tylenol/Codeine 30 Mg Tab*) 1 tab PO BID PRN PRN Reason: pain>4/10 Last Admin: 03/24/18 07:40 Dose: 1 tab Albuterol (Ventolin Hfa Inhaler*) 2 puff INH Q6H PRN PRN Reason: SOB/WHEEZING Albuterol (Ventolin 2.5 Mg/3 Ml Neb.Smita*) 2.5 mg INH Q4H PRN PRN Reason: SOB/WHEEZING Aripiprazole (Abilify Tab*) 5 mg PO BEDTIME [facility] Last Admin: 03/23/18 21:40 Dose: 5 mg Atorvastatin Calcium (Lipitor*) 80 mg PO QPM [facility] Last Admin: 03/23/18 21:40 Dose: 80 mg Calcium Carbonate (Tums*) 1,500 mg PO DAILY PRN PRN Reason: GERD Last Admin: 03/22/18 13:41 Dose: 1,500 mg Cetirizine HCl (Zyrtec*) 10 mg PO QAM [facility] Last Admin: 03/24/18 08:38 Dose: 10 mg Dapsone (Dapsone Tab*) 75 mg PO DAILY [facility] Last Admin: 03/24/18 08:38 Dose: 75 mg Device (Nicotine Mouth Piece*) 1 each INH .USE WITH NICOTROL PRN PRN Reason: CRAVING Dextrose (D50w Syringe 50 Ml*) 12.5 gm IV PUSH .FOR FS < 60 - SS PRN PRN Reason: FS < 60 Dicyclomine HCl (Bentyl Cap*) 10 mg PO BID [facility] Last Admin: 03/24/18 08:39 Dose: 10 mg Epinephrine HCl (Epipen Adult(Nf)) 0.3 mg IM ONCE PRN PRN Reason: ALLERGY SYMPTOMS Ferrous Sulfate (Ferrous Sulfate Tab*) 325 mg PO DAILY [facility] Last Admin: 03/24/18 08:40 Dose: 325 mg Fluticasone/Vilanterol (Breo Ellipta Mdi 200/25(Nf)) 1 puff INH DAILY [facility] Last Admin: 03/24/18 08:40 Dose: Not Given Gabapentin (Neurontin Cap(*)) 600 mg PO BID [facility] Last Admin: 03/24/18 08:40 Dose: 600 mg Ibuprofen (Motrin Tab*) 600 mg PO Q8H PRN PRN Reason: PAIN Last Admin: 03/22/18 13:40 Dose: 600 mg Insulin Glargine (Lantus(*)) 48 units SUBCUT 0900,2100 [facility] Last Admin: 03/24/18 08:48 Dose: 48 units Insulin Human Lispro (Humalog*) 0 units SUBCUT AC [facility]; Protocol Last Admin: 03/24/18 12:25 Dose: 4 units Insulin Human Lispro (Humalog*) 0 units SUBCUT ACHS [facility]; Protocol Last Admin: 03/24/18 12:25 Dose: 3 units Ketoconazole (Nizoral 2% Cream (Nf)) 1 applic TOPICAL DAILY [facility] Last Admin: 03/24/18 08:41 Dose: Not Given Lorazepam (Ativan Tab(*)) 0.5 mg PO Q6H PRN PRN Reason: ANXIETY Magnesium Oxide (Magox 400 Tab*) 400 mg PO BEDTIME [facility] Last Admin: 03/23/18 21:43 Dose: 400 mg Melatonin (Melatonin) 9 mg PO DAILY@1900 [facility] Last Admin: 03/23/18 21:40 Dose: 9 mg Metoprolol Tartrate (Lopressor Tab*) 50 mg PO BID [facility] Last Admin: 03/24/18 08:41 Dose: 50 mg Metronidazole (Metrocream (Nf)) 1 applic TOPICAL DAILY [facility] Last Admin: 03/24/18 08:41 Dose: Not Given Mupirocin (Bactroban 2 % Oint*) 1 applic TOPICAL BID [facility] Last Admin: 03/24/18 08:42 Dose: Not Given Mycophenolate Mofetil (Cellcept Tab(*)) 1,500 mg PO BID [facility] Last Admin: 03/24/18 08:42 Dose: 1,500 mg Nicotine (Nicotine Inhaler*) 10 mg INH Q2H PRN PRN Reason: CRAVING Non Formulary ( (Benzoyl Peroxide 5%)) 1 dose TOPICAL DAILY [facility] Last Admin: 03/24/18 08:43 Dose: Not Given Omeprazole (Prilosec Cap*) 20 mg PO QAM@0730 [facility] Last Admin: 03/24/18 08:45 Dose: 20 mg Ondansetron HCl (Zofran Tab*) 4 mg PO Q6H PRN PRN Reason: NAUSEA Phenyleph/Shark Oil/Min Oil/Petrol (Preparation H*) 1 applic TOPICAL TID PRN PRN Reason: DIRECTED Last Admin: 03/23/18 17:17 Dose: 1 applic Prazosin HCl (Minipress Cap*) 8 mg PO BEDTIME [facility] Last Admin: 03/23/18 21:45 Dose: 8 mg Prazosin HCl (Minipress Cap*) 2 mg PO DAILY [facility] Last Admin: 03/24/18 08:43 Dose: 2 mg Sitagliptin Phosphate (Januvia (Nf)) 50 mg PO QAM [facility] Last Admin: 03/24/18 08:43 Dose: 50 mg Spironolactone (Aldactone Tab*) 50 mg PO QAM [facility] Last Admin: 03/24/18 08:43 Dose: 50 mg Topiramate (Topamax(*)) 75 mg PO BID [facility] Last Admin: 03/24/18 08:44 Dose: 75 mg Vilazodone HCl (Viibryd (Nf)) 20 mg PO BID [facility] Last Admin: 03/24/18 08:44 Dose: 20 mg Zolpidem Tartrate (Ambien Tab*) 5 mg PO BEDTIME PRN PRN Reason: INSOMNIA - Discharge Plan Additional Comments: We are looking at discharging Jayy on Wednesday. In the meantime, we will explore whether appointments can be made to urge the process of getting Jayy into the next stage of [facility]. Rexulti, her antidepressant/antipsychotic, is not available at this hospital and has been temporarily discontinued. Abilify is substituted at 5 mg. She may restart Rexulti upon discharge. Prazosin in the morning has been added to reduce PTSD symptoms.
--- NOTE | 2018-03-24 16:00 | PN ---
MHU: Group Therapy Note - Service Type Service Type: [id number] Group Psychotherapy - Group Participation Patient Participating in Group: Yes Level of Group Participation: Attentive, Spontaneously Participate Relatedness to Group: Well Related - Evelyn participated vigorously in this group. She had many on topic questions and many contributions to offer.
[2018-03-24] MEDS: Ibuprofen TAB* 600 MG PO PRN (18:46)
[2018-03-24] MEDS: Magnesium Oxide TAB* 400 MG PO SCH (21:32)
[2018-03-24] MEDS: ARIPiprazole TAB* 5 MG PO SCH (21:32)
[2018-03-24] MEDS: Atorvastatin* 80 MG TAB PO SCH (21:37)
[2018-03-24] MEDS: Melatonin 3 MG TAB PO SCH (22:03)
[2018-03-25] MEDS: Topiramate TAB(*) 25 MG PO SCH ×2 (09:24→21:53)
[2018-03-25] MEDS: LORazepam TAB(*) 0.5 MG PO PRN (09:24)
[2018-03-25] MEDS: Cetirizine* 10 MG TAB PO SCH (09:24)
[2018-03-25] MEDS: Ferrous Sulfate TAB* 325 MG PO SCH (09:24)
[2018-03-25] MEDS: Metoprolol Tartrate TAB* 50 mg PO SCH ×2 (09:25→21:50)
[2018-03-25] MEDS: Gabapentin CAP(*) 300 MG PO SCH ×2 (09:25→21:49)
[2018-03-25] MEDS: Spironolactone TAB* 25 MG PO SCH (09:25)
[2018-03-25] MEDS: Fluticasone/Vilanterol MDI(NF) 200/25 MDI INH SCH (09:26)
[2018-03-25] MEDS: Insulin LISPRO* 1 UNITS UNIT SUBCUT SCH ×7 (09:26→22:19)
[2018-03-25] MEDS: Insulin GLARGINE(*) 1 UNITS UNIT SUBCUT SCH ×2 (09:28→22:19)
[2018-03-25] MEDS: Dicyclomine CAP* 10 MG PO SCH ×2 (09:29→21:48)
[2018-03-25] MEDS: Dapsone TAB* 100 MG PO SCH (09:29)
[2018-03-25] MEDS: METRONIDAZOLE 0.75% TOPICAL SCH (09:31)
[2018-03-25] MEDS: Mupirocin 2% OINT* TUBE TOPICAL SCH ×2 (09:31→21:51)
[2018-03-25] MEDS: CMCS:Ketoconazole 2 % CREAM (NF) 30 GM TUBE TOPICAL SCH (09:31)
[2018-03-25] MEDS: BENZOYL PEROXIDE 5% TOPICAL SCH (09:32)
[2018-03-25] MEDS: Mycophenolate Mofetil TAB(*) 500 MG PO SCH ×2 (09:32→21:52)
[2018-03-25] MEDS: Prazosin CAP* 1 MG PO SCH ×2 (09:33→22:39)
[2018-03-25] MEDS: CMCS:SitaGLIPtin (NF) 25 MG TAB PO SCH (09:34)
[2018-03-25] MEDS: VILAZODONE 10 MG PO SCH ×2 (09:41→21:54)
[2018-03-25] MEDS: Omeprazole CAP* 20 MG PO SCH (09:42)
[2018-03-25] MEDS: Acetaminop/Codeine 30 MG TAB* 1 TAB (300 MG/30 MG) PO PRN (12:04)
[2018-03-25] MEDS: Ibuprofen TAB* 600 MG PO PRN (14:26)
--- NOTE | 2018-03-25 17:13 | PN ---
Subjective - Subjective Date of Service: 03/25/18 Service Type: 00036 Hosp care 25 min moderate complexity Subjective: Jayy has been working on her projects that I have given her. She's proud of her work. Nevertheless, she has been unkind and demanding of other staff members and not always adhering to rules. Still, she has fulfilled the obligations of her behavioral modification contract and is eager for more work to do. Objective - Appearance Appearance: Obese Dysmorphic Features: No Hygiene: Normal Grooming: Disheveled - Behavior Psychomotor Activities: Normal Exhibits Abnormal Movement: No - Attitude and Relatedness Attitude and Relatedness: Superficially Cooperative Eye Contact: Fair - Speech Quality: Unpressured Latencies: Normal Quantity: Appropriate - Mood Patient's Decription of Mood: "Irritable" - Affect Observed Affect: Constricted Affect Consistent with: Dysphoria - Thought Process Patient's Thought Process: Coherent Thought Content: Yes Passive Wish, Yes Suicidal Planning, No Homicidal Ideation, No Paranoid Ideation - Sensorium Experiencing Hallucinations: No, Sensorium is Clear Type of Hallucinations: Visual: No, Auditory: No, Command: No - Level of Consciousness Level of Consciousness: Lethargic Orientation: Yes Intact, Yes Orientated to Time, Yes Orientated to Place, Yes Orientated to Person - Impulse Control Impulse Control: Tenuous - Insight and Judgement Insight and Judgement: Fair - Group Participation Particating in Group Activities: Yes Group Participation Comments: Not always appropriate in groups. - Medication Management Medication Management Adherence: Yes - Additional Observations Comments: Jayy is eager to feel better. She seems quite dissatisfied at this time with her personal health as well as her private life wondering why God would burden her with such problems. She is superficially performing tasks asked of her. With many staff members she is difficult to work with. Assessment - Assessment Merits Inpatient Hospitalization: For Immediate Safety, For Discharge Planning Inpatient DSM-V Dx: F43.12 Clinical Impression: Jayy is in emotional distress. These exacerbations of her PTSD symptoms are reasonable, as the environment she describes are, indeed, difficult and would be difficult for anyone to tolerate, let alone someone with PTSD. She is feeling helpless and ignored and would like to have attention she needs to find a different place to live. Because this isn't happening, or not happening quickly enough for her, she is feeling as if she would like to end her life or cut herself. Jayy has made efforts to be part of the group and participate. She is tired of DBT, so instead we will work on improving and playing to her self-identified strengths: arts and crafts. She is working on these today and is proud of her work. Plan - Plan Treatment Plan: Name: JAYY CANTU Birthdate: 1980 [id number] Medications: Current Medications Acetaminophen (Tylenol Tab*) 650 mg PO Q6H PRN PRN Reason: PAIN Last Admin: 03/20/18 12:27 Dose: 650 mg Acetaminophen/Butalbital/Caffeine (Fioricet Tab*) 1 tab PO Q8H PRN PRN Reason: MIGRAINE HEADACHE Last Admin: 03/23/18 09:09 Dose: 1 tab Acetaminophen/Codeine Phosphate (Tylenol/Codeine 30 Mg Tab*) 1 tab PO BID PRN PRN Reason: pain>4/10 Last Admin: 03/25/18 12:04 Dose: 1 tab Albuterol (Ventolin Hfa Inhaler*) 2 puff INH Q6H PRN PRN Reason: SOB/WHEEZING Albuterol (Ventolin 2.5 Mg/3 Ml Neb.Smita*) 2.5 mg INH Q4H PRN PRN Reason: SOB/WHEEZING Aripiprazole (Abilify Tab*) 5 mg PO BEDTIME [facility] Last Admin: 03/24/18 21:32 Dose: 5 mg Atorvastatin Calcium (Lipitor*) 80 mg PO QPM KRISTEN Last Admin: 03/24/18 21:37 Dose: 80 mg Calcium Carbonate (Tums*) 1,500 mg PO DAILY PRN PRN Reason: GERD Last Admin: 03/22/18 13:41 Dose: 1,500 mg Cetirizine HCl (Zyrtec*) 10 mg PO QAM KRISTEN Last Admin: 03/25/18 09:24 Dose: 10 mg Dapsone (Dapsone Tab*) 75 mg PO DAILY [facility] Last Admin: 03/25/18 09:29 Dose: 75 mg Device (Nicotine Mouth Piece*) 1 each INH .USE WITH NICOTROL PRN PRN Reason: CRAVING Dextrose (D50w Syringe 50 Ml*) 12.5 gm IV PUSH .FOR FS < 60 - SS PRN PRN Reason: FS < 60 Dicyclomine HCl (Bentyl Cap*) 10 mg PO BID [facility] Last Admin: 03/25/18 09:29 Dose: 10 mg Epinephrine HCl (Epipen Adult(Nf)) 0.3 mg IM ONCE PRN PRN Reason: ALLERGY SYMPTOMS Ferrous Sulfate (Ferrous Sulfate Tab*) 325 mg PO DAILY [facility] Last Admin: 03/25/18 09:24 Dose: 325 mg Fluticasone/Vilanterol (Breo Ellipta Mdi 200/25(Nf)) 1 puff INH DAILY [facility] Last Admin: 03/25/18 09:26 Dose: Not Given Gabapentin (Neurontin Cap(*)) 600 mg PO BID [facility] Last Admin: 03/25/18 09:25 Dose: 600 mg Ibuprofen (Motrin Tab*) 600 mg PO Q8H PRN PRN Reason: PAIN Last Admin: 03/25/18 14:26 Dose: 600 mg Insulin Glargine (Lantus(*)) 48 units SUBCUT 0900,2100 [facility] Last Admin: 03/25/18 09:28 Dose: 48 units Insulin Human Lispro (Humalog*) 0 units SUBCUT AC [facility]; Protocol Last Admin: 03/25/18 12:44 Dose: 7 units Insulin Human Lispro (Humalog*) 0 units SUBCUT ACHS [facility]; Protocol Last Admin: 03/25/18 12:45 Dose: 3 units Ketoconazole (Nizoral 2% Cream (Nf)) 1 applic TOPICAL DAILY [facility] Last Admin: 03/25/18 09:31 Dose: Not Given Lorazepam (Ativan Tab(*)) 0.5 mg PO Q6H PRN PRN Reason: ANXIETY Last Admin: 03/25/18 09:24 Dose: 0.5 mg Magnesium Oxide (Magox 400 Tab*) 400 mg PO BEDTIME [facility] Last Admin: 03/24/18 21:32 Dose: 400 mg Melatonin (Melatonin) 9 mg PO DAILY@1900 [facility] Last Admin: 03/24/18 22:03 Dose: 9 mg Metoprolol Tartrate (Lopressor Tab*) 50 mg PO BID [facility] Last Admin: 03/25/18 09:25 Dose: 50 mg Metronidazole (Metrocream (Nf)) 1 applic TOPICAL DAILY [facility] Last Admin: 03/25/18 09:31 Dose: Not Given Mupirocin (Bactroban 2 % Oint*) 1 applic TOPICAL BID [facility] Last Admin: 03/25/18 09:31 Dose: Not Given Mycophenolate Mofetil (Cellcept Tab(*)) 1,500 mg PO BID [facility] Last Admin: 03/25/18 09:32 Dose: 1,500 mg Nicotine (Nicotine Inhaler*) 10 mg INH Q2H PRN PRN Reason: CRAVING Non Formulary ( (Benzoyl Peroxide 5%)) 1 dose TOPICAL DAILY [facility] Last Admin: 03/25/18 09:32 Dose: Not Given Omeprazole (Prilosec Cap*) 20 mg PO QAM@0730 [facility] Last Admin: 03/25/18 09:42 Dose: 20 mg Ondansetron HCl (Zofran Tab*) 4 mg PO Q6H PRN PRN Reason: NAUSEA Phenyleph/Shark Oil/Min Oil/Petrol (Preparation H*) 1 applic TOPICAL TID PRN PRN Reason: DIRECTED Last Admin: 03/23/18 17:17 Dose: 1 applic Prazosin HCl (Minipress Cap*) 8 mg PO BEDTIME [facility] Last Admin: 03/24/18 22:11 Dose: 8 mg Prazosin HCl (Minipress Cap*) 2 mg PO DAILY [facility] Last Admin: 03/25/18 09:33 Dose: 2 mg Sitagliptin Phosphate (Januvia (Nf)) 50 mg PO QAM [facility] Last Admin: 03/25/18 09:34 Dose: 50 mg Spironolactone (Aldactone Tab*) 50 mg PO QAM [facility] Last Admin: 03/25/18 09:25 Dose: 50 mg Topiramate (Topamax(*)) 75 mg PO BID [facility] Last Admin: 03/25/18 09:24 Dose: 75 mg Vilazodone HCl (Viibryd (Nf)) 20 mg PO BID [facility] Last Admin: 03/25/18 09:41 Dose: 20 mg Zolpidem Tartrate (Ambien Tab*) 5 mg PO BEDTIME PRN PRN Reason: INSOMNIA - Discharge Plan Additional Comments: We are looking at discharging Jayy on Wednesday. In the meantime, we will explore whether appointments can be made to urge the process of getting Jayy into the next stage of [facility]. Rexulti, her antidepressant/antipsychotic, is not available at this hospital and has been temporarily discontinued. Abilify is substituted at 5 mg. She may restart Rexulti upon discharge. Prazosin in the morning has been added to reduce PTSD symptoms. Jayy's behaviors are quite entrenched and much of the discharge planning relies on her abilities.
[2018-03-25] MEDS: Atorvastatin* 80 MG TAB PO SCH (21:47)
[2018-03-25] MEDS: ARIPiprazole TAB* 5 MG PO SCH (21:48)
[2018-03-25] MEDS: Magnesium Oxide TAB* 400 MG PO SCH (21:50)
[2018-03-25] MEDS: Melatonin 3 MG TAB PO SCH (21:56)
[2018-03-26] MEDS: Insulin LISPRO* 1 UNITS UNIT SUBCUT SCH ×7 (09:40→21:41)
[2018-03-26] MEDS: Insulin GLARGINE(*) 1 UNITS UNIT SUBCUT SCH ×2 (09:41→21:40)
[2018-03-26] MEDS: VILAZODONE 10 MG PO SCH ×2 (09:43→21:30)
[2018-03-26] MEDS: Mycophenolate Mofetil TAB(*) 500 MG PO SCH ×2 (09:43→21:38)
[2018-03-26] MEDS: Metoprolol Tartrate TAB* 50 mg PO SCH ×2 (09:44→21:30)
[2018-03-26] MEDS: Dicyclomine CAP* 10 MG PO SCH ×2 (09:44→21:31)
[2018-03-26] MEDS: Ferrous Sulfate TAB* 325 MG PO SCH (09:45)
[2018-03-26] MEDS: Dapsone TAB* 100 MG PO SCH (09:45)
[2018-03-26] MEDS: Cetirizine* 10 MG TAB PO SCH (09:45)
[2018-03-26] MEDS: Topiramate TAB(*) 25 MG PO SCH ×2 (09:46→21:33)
[2018-03-26] MEDS: Spironolactone TAB* 25 MG PO SCH (09:47)
[2018-03-26] MEDS: CMCS:SitaGLIPtin (NF) 25 MG TAB PO SCH (09:47)
[2018-03-26] MEDS: Prazosin CAP* 1 MG PO SCH ×2 (09:47→21:35)
[2018-03-26] MEDS: Gabapentin CAP(*) 300 MG PO SCH ×2 (09:47→21:32)
[2018-03-26] MEDS: CMCS:Ketoconazole 2 % CREAM (NF) 30 GM TUBE TOPICAL SCH (09:54)
[2018-03-26] MEDS: Omeprazole CAP* 20 MG PO SCH (09:54)
[2018-03-26] MEDS: Fluticasone/Vilanterol MDI(NF) 200/25 MDI INH SCH (09:54)
[2018-03-26] MEDS: METRONIDAZOLE 0.75% TOPICAL SCH (09:55)
[2018-03-26] MEDS: Mupirocin 2% OINT* TUBE TOPICAL SCH ×2 (09:55→21:39)
[2018-03-26] MEDS: BENZOYL PEROXIDE 5% TOPICAL SCH (09:55)
[2018-03-26] MEDS: Ibuprofen TAB* 600 MG PO PRN (11:12)
[2018-03-26] MEDS: Acetaminop/Codeine 30 MG TAB* 1 TAB (300 MG/30 MG) PO PRN (11:12)
[2018-03-26] MEDS: ARIPiprazole TAB* 5 MG PO SCH (21:31)
[2018-03-26] MEDS: Magnesium Oxide TAB* 400 MG PO SCH (21:33)
[2018-03-26] MEDS: Melatonin 3 MG TAB PO SCH (21:34)
[2018-03-26] MEDS: Prazosin CAP* 5 MG PO SCH (21:35)
[2018-03-26] MEDS: Atorvastatin* 80 MG TAB PO SCH (21:39)
[2018-03-27] MEDS: Acetaminop/Codeine 30 MG TAB* 1 TAB (300 MG/30 MG) PO PRN (06:15)
[2018-03-27] MEDS: Insulin LISPRO* 1 UNITS UNIT SUBCUT SCH ×7 (08:40→21:27)
[2018-03-27] MEDS: Ferrous Sulfate TAB* 325 MG PO SCH (09:11)
[2018-03-27] MEDS: Fluticasone/Vilanterol MDI(NF) 200/25 MDI INH SCH (09:11)
[2018-03-27] MEDS: Insulin GLARGINE(*) 1 UNITS UNIT SUBCUT SCH ×2 (09:11→21:25)
[2018-03-27] MEDS: Cetirizine* 10 MG TAB PO SCH (09:12)
[2018-03-27] MEDS: Omeprazole CAP* 20 MG PO SCH (09:12)
[2018-03-27] MEDS: Topiramate TAB(*) 25 MG PO SCH ×2 (09:13→21:20)
[2018-03-27] MEDS: Metoprolol Tartrate TAB* 50 mg PO SCH ×2 (09:13→21:20)
[2018-03-27] MEDS: Spironolactone TAB* 25 MG PO SCH (09:14)
[2018-03-27] MEDS: Prazosin CAP* 1 MG PO SCH ×2 (09:14→21:19)
[2018-03-27] MEDS: Gabapentin CAP(*) 300 MG PO SCH ×2 (09:15→21:18)
[2018-03-27] MEDS: Mycophenolate Mofetil TAB(*) 500 MG PO SCH ×2 (09:16→21:17)
[2018-03-27] MEDS: Mupirocin 2% OINT* TUBE TOPICAL SCH ×2 (09:17→21:22)
[2018-03-27] MEDS: METRONIDAZOLE 0.75% TOPICAL SCH (09:17)
[2018-03-27] MEDS: CMCS:Ketoconazole 2 % CREAM (NF) 30 GM TUBE TOPICAL SCH (09:17)
[2018-03-27] MEDS: Dicyclomine CAP* 10 MG PO SCH ×2 (09:17→21:46)
[2018-03-27] MEDS: Dapsone TAB* 100 MG PO SCH (09:18)
[2018-03-27] MEDS: CMCS:SitaGLIPtin (NF) 25 MG TAB PO SCH (09:20)
[2018-03-27] MEDS: BENZOYL PEROXIDE 5% TOPICAL SCH (09:20)
[2018-03-27] MEDS: VILAZODONE 10 MG PO SCH ×2 (09:21→21:17)
[2018-03-27] MEDS: Butalb/Acetamin/Caff TAB* 1 TAB PO PRN (12:44)
[2018-03-27] MEDS: Ibuprofen TAB* 600 MG PO PRN (12:44)
--- NOTE | 2018-03-27 15:13 | PN ---
Subjective - Subjective Date of Service: 03/27/18 Service Type: 08988 Hosp care 15 min low complexity Subjective: Jayy has been maintaining a low profile socializing with select group of peers. There were reports of so some minor dramma and threats to tavia the hospital for her fall. She didn't say anything to this specifications writer. Reports that she was doing very well. Denies hallucinations, delusions, SI or HI. Taking her meds as prescribed. Objective - Appearance Appearance: Obese Dysmorphic Features: No Hygiene: Normal Grooming: Fairly Well Kept - Behavior Psychomotor Activities: Normal Exhibits Abnormal Movement: No - Attitude and Relatedness Attitude and Relatedness: Cooperative Eye Contact: Good - Speech Quality: Unpressured Latencies: Normal Quantity: Appropriate - Mood Patient's Decription of Mood: "Fine" - Affect Observed Affect: Non-labile Affect Consistent with: Euthymia - Thought Process Patient's Thought Process: Coherent, Goal Directed Thought Content: No Passive Wish, No Suicidal Planning, No Homicidal Ideation, No Paranoid Ideation - Sensorium Experiencing Hallucinations: No, Sensorium is Clear Type of Hallucinations: Visual: No, Auditory: No, Command: No - Level of Consciousness Level of Consciousness: Alert Orientation: Yes Intact, Yes Orientated to Time, Yes Orientated to Place, Yes Orientated to Person - Impulse Control Impulse Control: Intact - Insight and Judgement Insight and Judgement: Fair - Group Participation Particating in Group Activities: Yes - Medication Management Medication Management Adherence: Yes Assessment - Assessment Merits Inpatient Hospitalization: Consolidate Improvements, For Discharge Planning Inpatient DSM-V Dx: F43.12 Clinical Impression: Improved significantly and should be able to go back home soon. Plan - Plan Treatment Plan: Name: JAYY CANTU Birthdate: 1980 [id number] Continued Medication Management: Continue Outpt Medication Medications: Current Medications Acetaminophen (Tylenol Tab*) 650 mg PO Q6H PRN PRN Reason: PAIN Last Admin: 03/20/18 12:27 Dose: 650 mg Acetaminophen/Butalbital/Caffeine (Fioricet Tab*) 1 tab PO Q8H PRN PRN Reason: MIGRAINE HEADACHE Last Admin: 03/27/18 12:44 Dose: 1 tab Acetaminophen/Codeine Phosphate (Tylenol/Codeine 30 Mg Tab*) 1 tab PO BID PRN PRN Reason: pain>4/10 Last Admin: 03/27/18 06:15 Dose: 1 tab Albuterol (Ventolin Hfa Inhaler*) 2 puff INH Q6H PRN PRN Reason: SOB/WHEEZING Last Admin: 03/27/18 07:05 Dose: 2 puff Albuterol (Ventolin 2.5 Mg/3 Ml Neb.Smita*) 2.5 mg INH Q4H PRN PRN Reason: SOB/WHEEZING Aripiprazole (Abilify Tab*) 5 mg PO BEDTIME [facility] Last Admin: 03/26/18 21:31 Dose: 5 mg Atorvastatin Calcium (Lipitor*) 80 mg PO QPM [facility] Last Admin: 03/26/18 21:39 Dose: 80 mg Calcium Carbonate (Tums*) 1,500 mg PO DAILY PRN PRN Reason: GERD Last Admin: 03/22/18 13:41 Dose: 1,500 mg Cetirizine HCl (Zyrtec*) 10 mg PO QAM [facility] Last Admin: 03/27/18 09:12 Dose: 10 mg Dapsone (Dapsone Tab*) 75 mg PO DAILY [facility] Last Admin: 03/27/18 09:18 Dose: 75 mg Device (Nicotine Mouth Piece*) 1 each INH .USE WITH NICOTROL PRN PRN Reason: CRAVING Dextrose (D50w Syringe 50 Ml*) 12.5 gm IV PUSH .FOR FS < 60 - SS PRN PRN Reason: FS < 60 Dicyclomine HCl (Bentyl Cap*) 10 mg PO BID [facility] Last Admin: 03/27/18 09:17 Dose: 10 mg Epinephrine HCl (Epipen Adult(Nf)) 0.3 mg IM ONCE PRN PRN Reason: ALLERGY SYMPTOMS Ferrous Sulfate (Ferrous Sulfate Tab*) 325 mg PO DAILY [facility] Last Admin: 03/27/18 09:11 Dose: 325 mg Fluticasone/Vilanterol (Breo Ellipta Mdi 200/25(Nf)) 1 puff INH DAILY [facility] Last Admin: 03/27/18 09:11 Dose: Not Given Gabapentin (Neurontin Cap(*)) 600 mg PO BID [facility] Last Admin: 03/27/18 09:15 Dose: 600 mg Ibuprofen (Motrin Tab*) 600 mg PO Q8H PRN PRN Reason: PAIN Last Admin: 03/27/18 12:44 Dose: 600 mg Insulin Glargine (Lantus(*)) 48 units SUBCUT 0900,2100 [facility] Last Admin: 03/27/18 09:11 Dose: 48 units Insulin Human Lispro (Humalog*) 0 units SUBCUT AC [facility]; Protocol Last Admin: 03/27/18 12:38 Dose: 4 units Insulin Human Lispro (Humalog*) 0 units SUBCUT ACHS [facility]; Protocol Last Admin: 03/27/18 12:39 Dose: 3 units Ketoconazole (Nizoral 2% Cream (Nf)) 1 applic TOPICAL DAILY [facility] Last Admin: 03/27/18 09:17 Dose: Not Given Lorazepam (Ativan Tab(*)) 0.5 mg PO Q6H PRN PRN Reason: ANXIETY Last Admin: 03/25/18 09:24 Dose: 0.5 mg Magnesium Oxide (Magox 400 Tab*) 400 mg PO BEDTIME [facility] Last Admin: 03/26/18 21:33 Dose: 400 mg Melatonin (Melatonin) 9 mg PO DAILY@1900 [facility] Last Admin: 03/26/18 21:34 Dose: 9 mg Metoprolol Tartrate (Lopressor Tab*) 50 mg PO BID [facility] Last Admin: 03/27/18 09:13 Dose: 50 mg Metronidazole (Metrocream (Nf)) 1 applic TOPICAL DAILY [facility] Last Admin: 03/27/18 09:17 Dose: Not Given Mupirocin (Bactroban 2 % Oint*) 1 applic TOPICAL BID [facility] Last Admin: 03/27/18 09:17 Dose: Not Given Mycophenolate Mofetil (Cellcept Tab(*)) 1,500 mg PO BID [facility] Last Admin: 03/27/18 09:16 Dose: 1,500 mg Nicotine (Nicotine Inhaler*) 10 mg INH Q2H PRN PRN Reason: CRAVING Non Formulary ( (Benzoyl Peroxide 5%)) 1 dose TOPICAL DAILY [facility] Last Admin: 03/27/18 09:20 Dose: Not Given Omeprazole (Prilosec Cap*) 20 mg PO QAM@0730 [facility] Last Admin: 03/27/18 09:12 Dose: 20 mg Ondansetron HCl (Zofran Tab*) 4 mg PO Q6H PRN PRN Reason: NAUSEA Phenyleph/Shark Oil/Min Oil/Petrol (Preparation H*) 1 applic TOPICAL TID PRN PRN Reason: DIRECTED Last Admin: 03/23/18 17:17 Dose: 1 applic Prazosin HCl (Minipress Cap*) 2 mg PO DAILY [facility] Last Admin: 03/27/18 09:14 Dose: 2 mg Prazosin HCl (Minipress Cap*) 3 mg PO BEDTIME [facility] Last Admin: 03/26/18 21:35 Dose: 3 mg Prazosin HCl (Minipress Cap*) 5 mg PO BEDTIME [facility] Last Admin: 03/26/18 21:35 Dose: 5 mg Sitagliptin Phosphate (Januvia (Nf)) 50 mg PO QAM [facility] Last Admin: 03/27/18 09:20 Dose: 50 mg Spironolactone (Aldactone Tab*) 50 mg PO QAM [facility] Last Admin: 03/27/18 09:14 Dose: 50 mg Topiramate (Topamax(*)) 75 mg PO BID [facility] Last Admin: 03/27/18 09:13 Dose: 75 mg Vilazodone HCl (Viibryd (Nf)) 20 mg PO BID [facility] Last Admin: 03/27/18 09:21 Dose: 20 mg - Discharge Plan Discharge Plan: Outpatient Follow Up Outpatient Program: [facility]
[2018-03-27] MEDS: Atorvastatin* 80 MG TAB PO SCH ×2 (17:34→21:11)
[2018-03-27] MEDS: LORazepam TAB(*) 0.5 MG PO PRN (20:04)
[2018-03-27] MEDS: Melatonin 3 MG TAB PO SCH (21:14)
[2018-03-27] MEDS: Prazosin CAP* 5 MG PO SCH (21:19)
[2018-03-27] MEDS: Magnesium Oxide TAB* 400 MG PO SCH (21:20)
[2018-03-27] MEDS: ARIPiprazole TAB* 5 MG PO SCH (21:46)
[2018-03-28] MEDS: Acetaminop/Codeine 30 MG TAB* 1 TAB (300 MG/30 MG) PO PRN (07:03)
[2018-03-28 08:26] VITALS: BP 123/75
[2018-03-28] MEDS: Insulin LISPRO* 1 UNITS UNIT SUBCUT SCH ×4 (09:12→12:41)
[2018-03-28] MEDS: BENZOYL PEROXIDE 5% TOPICAL SCH (09:32)
[2018-03-28] MEDS: CMCS:Ketoconazole 2 % CREAM (NF) 30 GM TUBE TOPICAL SCH (09:32)
[2018-03-28] MEDS: Fluticasone/Vilanterol MDI(NF) 200/25 MDI INH SCH (09:32)
[2018-03-28] MEDS: METRONIDAZOLE 0.75% TOPICAL SCH (09:32)
[2018-03-28] MEDS: Dapsone TAB* 100 MG PO SCH (09:33)
[2018-03-28] MEDS: Prazosin CAP* 1 MG PO SCH (09:34)
[2018-03-28] MEDS: CMCS:SitaGLIPtin (NF) 25 MG TAB PO SCH (09:34)
[2018-03-28] MEDS: Mycophenolate Mofetil TAB(*) 500 MG PO SCH (09:35)
[2018-03-28] MEDS: Gabapentin CAP(*) 300 MG PO SCH (09:35)
[2018-03-28] MEDS: Topiramate TAB(*) 25 MG PO SCH (09:36)
[2018-03-28] MEDS: Metoprolol Tartrate TAB* 50 mg PO SCH (09:37)
[2018-03-28] MEDS: Cetirizine* 10 MG TAB PO SCH (09:37)
[2018-03-28] MEDS: Spironolactone TAB* 25 MG PO SCH (09:37)
[2018-03-28] MEDS: Ferrous Sulfate TAB* 325 MG PO SCH (09:37)
[2018-03-28] MEDS: Dicyclomine CAP* 10 MG PO SCH (09:37)
[2018-03-28] MEDS: Mupirocin 2% OINT* TUBE TOPICAL SCH (09:38)
[2018-03-28] MEDS: Insulin GLARGINE(*) 1 UNITS UNIT SUBCUT SCH (09:38)
[2018-03-28] MEDS: Omeprazole CAP* 20 MG PO SCH (09:43)
[2018-03-28] MEDS: VILAZODONE 10 MG PO SCH (10:14)
--- NOTE | 2018-03-28 13:11 | PN ---
MHU: Group Therapy Note - Service Type Service Type: 11121 Group Psychotherapy - Cognitive Behavioral Group Therapy ( CBT):Patient was attentive and participatory in CBT programming this morning, and remained in good behavioral control. Patient expressed positive insights regarding relevant treatment interventions and goals.
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
== END 2018-03-28 16:32 | disposition home or self-care (01) | DRG 755 ==
LOC: ED 16:12 → BSU 21:18
PROVIDERS: ADMIT Psychiatry & Neurology Psychiatry; ATTEND Psychiatry & Neurology Psychiatry
DX: F43.12 Post-traumatic stress disorder, chronic (principal); Z68.43 Body mass index [BMI] 50.0-59.9, adult; K50.90 Crohn's disease, unspecified, without complications; R45.851 Suicidal ideations; E10.43 Type 1 diabetes mellitus with diabetic autonomic (poly)neuropathy; E10.40 Type 1 diabetes mellitus with diabetic neuropathy, unspecified; E66.01 Morbid (severe) obesity due to excess calories; K31.84 Gastroparesis; Z62.810 Personal history of physical and sexual abuse in childhood; F60.3 Borderline personality disorder; F17.210 Nicotine dependence, cigarettes, uncomplicated; E78.00 Pure hypercholesterolemia, unspecified; J45.909 Unspecified asthma, uncomplicated; K21.9 Gastro-esophageal reflux disease without esophagitis; K58.9 Irritable bowel syndrome, unspecified; L95.9 Vasculitis limited to the skin, unspecified; L71.9 Rosacea, unspecified; M54.30 Sciatica, unspecified side; E28.2 Polycystic ovarian syndrome; G43.909 Migraine, unspecified, not intractable, without status migrainosus; D72.829 Elevated white blood cell count, unspecified; Z96.41 Presence of insulin pump (external) (internal); Z88.2 Allergy status to sulfonamides; Z88.8 Allergy status to other drugs, medicaments and biological substances; Z91.030 Bee allergy status; Z81.8 Family history of other mental and behavioral disorders; Z81.1 Family history of alcohol abuse and dependence; Z79.1 Long term (current) use of non-steroidal anti-inflammatories (NSAID); Z79.4 Long term (current) use of insulin; Z79.891 Long term (current) use of opiate analgesic; Z79.899 Other long term (current) drug therapy; Z82.49 Family history of ischemic heart disease and other diseases of the circulatory system; Z83.3 Family history of diabetes mellitus; Z82.5 Family history of asthma and other chronic lower respiratory diseases
CPT/HCPCS: 36415; 71045; 80053; 80307; 80320; 80329; 81003; 83036; 84443; 85025; 85060; 90853; 99222; 99231; 99232; 99233; 99238; 99285; A9270-GY; G0480

== ENCOUNTER 2018-03-30 14:10 | Emergency (ER) | payer OTHER ==
--- NOTE | 2018-03-30 14:35 | ED ---
Psychiatric Complaint - HPI Summary HPI Summary: This is scribe Indio Marquez documenting for attending Dr. Gabe Starkey. This patient is a 37 year old F presenting to [facility] with a chief complaint of SI with a plan since her discharge from the [facility] on 03/28/18. Pt endorses depression and SI with a plan to walk into traffic, or to jump off of a bridge. Pt endorses medication compliance. Pt denies CP, palpitations, SOB. Pt was recently discharged from [facility], but felt she was not ready, so she expressed this to her outpatient therapist who allegedly agreed. I, Dr. Bernal personally performed the services described in this documentation as scribed in my presence and it is both accurate and complete. - History Of Current Complaint Time Seen by Provider: 03/30/18 14:26 Hx Obtained From: Patient Hx Last Menstrual Period: nexplanon Onset/Duration: Gradual Onset, Still Present Timing: Constant Severity Initially: Moderate Severity Currently: Moderate Character: Depressed Aggravating Factor(s): Nothing Alleviating Factor(s): Nothing Related History: Positive For: Prior Psychiatric Issues Has Suicidal: Reports: Thoughts, With A Plan, Has Prior Attempt(s) Has Homicidal: Denies: Thoughts - Allergies/Home Medications Allergies/Adverse Reactions: Allergies Allergy/AdvReac Type Severity Reaction Status Date / Time Adhesive Tape Allergy Rash Verified 03/02/18 14:51 asenapine Allergy Rash Verified 03/02/18 14:51 bee venom protein (honey bee) Allergy Anaphylatic Verified 03/25/18 10:25 Shock lurasidone [From Latuda] Allergy Hives Verified 03/02/18 14:51 metoclopramide [From Reglan] Allergy Abdominal Verified 03/02/18 14:51 Pain paclitaxel [From Taxol] Allergy Hives Verified 03/02/18 14:51 Sulfa (Sulfonamide Allergy Unknown Verified 03/02/18 14:51 Antibiotics) Reaction Details sulfamethoxazole Allergy Hives Verified 03/02/18 14:51 [From Bactrim] trimethoprim [From Bactrim] Allergy Hives Verified 03/02/18 14:51 nalbuphine [From Nubain] AdvReac Rash Verified 03/02/18 14:51 paroxetine [From Paxil] AdvReac Vomiting Verified 03/02/18 14:51 tramadol AdvReac Rash Verified 03/02/18 14:51 "metal" Allergy Swelling Uncoded 02/08/18 16:01 zepeda Allergy Nausea And Uncoded 02/08/18 16:01 Vomiting PMH/Surg Hx/FS Hx/Imm Hx Endocrine/Hematology History: Reports: Hx Diabetes - type 2 dm on insulin Cardiovascular History: Reports: Hx Angina, Hx Hypercholesterolemia, Other Cardiovascular Problems/Disorders - vasculitis. tachycardia Denies: Hx Coronary Artery Disease, Hx Hypertension - ON BP MEDS FOR TACHY, Hx Myocardial Infarction, Hx Pacemaker/ICD, Hx Peripheral Vascular Disease, Hx Valvular Heart Disease Respiratory History: Reports: Hx Asthma, Hx Sleep Apnea Denies: Hx Chronic Obstructive Pulmonary Disease (COPD), Other Respiratory Problems/Disorders GI History: Reports: Hx Crohn's Disease, Hx Gastroesophageal Reflux Disease, Hx Irritable Bowel, Other GI Disorders - gastroparesis History: Denies: Hx Dialysis, Hx Renal Disease, Other Problems/Disorders Musculoskeletal History: Reports: Other Musculoskeletal History - Ulnar nerve compression Right arm Denies: Hx Arthritis, Hx Osteoporosis Sensory History: Reports: Hx Contacts or Glasses Denies: Hx Legally Blind, Hx Deafness, Hx Hearing Aid Opthamlomology History: Reports: Hx Contacts or Glasses Denies: Hx Legally Blind EENT History: Denies: Hx Deafness Neurological History: Reports: Hx Headaches, Hx Migraine Denies: Hx Seizures, Hx Transient Ischemic Attacks (TIA), Other Neuro Impairments/Disorders Psychiatric History: Reports: Hx Anxiety, Hx Depression, Hx Panic Disorder - PTSD, Hx Post Traumatic Stress Disorder, Hx Inpatient Treatment, Hx Community Mental Health Tx, Hx Suicide Attempt, Other Psychiatric Issues/Disorders - Borderline Personality Disorder Denies: Hx Eating Disorder, Hx Bipolar Disorder, Hx of Violent Episodes Against Others - Surgical History Surgery Procedure, Year, and Place: Cholecystectomy;. Cardiac Catherterization- NO STENT; Hx Anesthesia Reactions: No - Immunization History Date of Tetanus Vaccine: utd Date of Influenza Vaccine: fall 2016 Infectious Disease History: No Infectious Disease History: Reports: Hx of Known/Suspected MRSA - treated. noncarrier now Denies: Traveled Outside the [place] in Last 30 Days - Family History Known Family History: Positive: Cardiac Disease, Diabetes, Other - blood clots ( mother), pacemaker (father) Negative: Hypertension - Social History Alcohol Use: None Hx Substance Use: Yes Substance Use Type: Reports: Marijuana Substance Use Comment - Amount & Last Used: Medical Marijuana Hx Tobacco Use: Yes Smoking Status (MU): Light Every Day Tobacco Smoker Type: Cigarettes Amount Used/How Often: 5 cigarettes/day Have You Smoked in the Last Year: Yes - states that she last smoked yesterday Review of Systems Negative: Fever Negative: Palpitations, Chest Pain Negative: Shortness Of Breath Positive: no symptoms reported Positive: Depressed, Other - SI with plan All Other Systems Reviewed And Are Negative: Yes Physical Exam - Summary Physical Exam Summary: VITAL SIGNS: Reviewed. GENERAL: Patient is an obese female who is lying comfortable in the stretcher. Patient is not in any acute respiratory distress. HEAD AND FACE: No signs of trauma. No ecchymosis, hematomas or skull depressions. No sinus tenderness. EYES: PERRLA, EOMI x 2, No injected conjunctiva, no nystagmus. EARS: Hearing grossly intact. Ear canals and tympanic membranes are within normal limits. MOUTH: Oropharynx within normal limits. NECK: Supple, trachea is midline, no adenopathy, no JVD, no carotid bruit, no c- spine tenderness, neck with full ROM. CHEST: Symmetric, no tenderness at palpation LUNGS: Clear to auscultation bilaterally. No wheezing or crackles. CVS: Regular rate and rhythm, S1 and S2 present, no murmurs or gallops appreciated. ABDOMEN: Soft, non-tender. No signs of distention. No rebound no guarding, and no masses palpated. Bowel sounds are normal. EXTREMITIES: FROM in all major joints, no edema, no cyanosis or clubbing. NEURO: Alert and oriented x 3. No acute neurological deficits. Speech is normal and follows commands. SKIN: Dry and warm PSYCH: Depressed, quiet, and endorses SI with a plan. No homicidal thoughts or plan. No signs of psychosis or pressure speech. No tangential speech. Flat affect, seems sad. Triage Information Reviewed: Yes Vital Signs On Initial Exam: Initial Vitals Temp Pulse Resp BP Pulse Ox 97.8 F 106 20 108/78 94 03/30/18 14:26 03/30/18 14:26 03/30/18 14:26 03/30/18 14:26 03/30/18 14:26 Vital Signs Reviewed: Yes Diagnostics - Vital Signs Vital Signs Temp Pulse Resp BP Pulse Ox 03/30/18 14:26 97.8 F 106 20 108/78 94 - Laboratory Result Diagrams: 03/30/18 14:59 03/30/18 14:59 Lab Statement: Any lab studies that have been ordered have been reviewed, and results considered in the medical decision making process. Course/Dx - Course Assessment/Plan: This patient is a 35-year-old female who presents to the emergency department with a 945 order from her therapists complaining that the patient is depressed, having suicidal ideation and plan. Patient is hemodynamically stable and alert and oriented 3. Blood test result shows a white blood cell count of 21.8 which is her usual white blood cell account number. Sodium was 132, glucose is 288. Patient is in a glucose pump so she will be administering a bolus of insulin as per head insulin scale. At this point the patient is medically clear and she is awaiting for mental health ablation. Patient will be signed out to Dr. Green for at shift change. - Differential Dx/Clinical Impression Differential Diagnosis/HQI/PQRI: Positive: Anxiety, Depression, Suicidal Ideation Provider Diagnosis: Depression, Suicidal ideation Discharge - Sign-Out/Discharge Documenting (check all that apply): Sign-Out Patient Signing out patient TO: Kirill Green - Mental health - Discharge Plan Referrals: Kimberlyn hDillon MD [Primary Care Provider] -
[2018-03-30 15:17] LABS: ABS Basophils 0.2 10^3/ul (0-0.2); ABS Eosinophils 0.2 10^3/ul (0-0.6); ABS Lymphocytes 4.2 10^3/ul (1.0-4.8); ABS Monocytes 1.3 10^3/ul (0-0.8); ABS Neutrophils 16.1 10^3/ul (1.5-7.7); ABS Nucleated RBC 0 10^3/ul; Eosinophil % 0.9 % (0-6); Hematocrit 36 % (35-47); Hemoglobin 11.8 g/dl (12.0-16.0); Mean Corpuscular HGB Conc 33 g/dl (31-36); Mean Corpuscular Hemoglobin 29 pg (27-31); Mean Corpuscular Volume 87 fL (80-97); Mean Platelet Volume 6.6 um3 (7.4-10.4); Nucleated Red Blood Cells % 0.1; Platelet Count 416 10^3/ul (150-450); Red Blood Count 4.12 10^6/ul (4.00-5.40); Red Cell Distribution Width 13 % (10.5-15); White Blood Count 21.8 10^3/ul (3.5-10.8)
[2018-03-30 15:27] LABS: EGFR Non-African American 125.8 (>60)
[2018-03-30 16:04] LABS: Urine Appearance Clear; Urine Blood Negative (Negative); Urine Color Yellow; Urine Ketones Negative (Negative); Urine Protein Negative (Negative); Urine Specific Gravity 1.013 (1.010-1.030); Urine Urobilinogen Negative (Negative)
--- NOTE | 2018-03-30 19:20 | ED ---
Progress - Progress Note Progress Note: This is scribe Mc Riddle documenting for attending Mariella Green MD. This patient is a 37 year old F [facility] with a chief complaint of possible SI. This patient was signed out from Dr. Bernal and received by Dr. Green during a shift change. I, Dr. Green, personally performed the services described in this documentation as scribed in my presence and it is both accurate and complete. - Consult/PCP Time Called: 17:00 Course/Dx - Diagnoses Provider Diagnoses: Depression, Suicidal ideation Discharge - Sign-Out/Discharge Documenting (check all that apply): Sign-Out Patient, Receiving Sign-Out Signing out patient TO: Ralph Bernal Receiving patient FROM: Ralph Bernal - Discharge Plan Referrals: Kimberlyn Dhillon MD [Primary Care Provider] -
[2018-03-30] MEDS ORDERED: Zolpidem TAB* 10 MG PO ONE (20:04)
[2018-03-30] MEDS ORDERED: Metoprolol Tartrate TAB* 50 mg PO ONE (20:07)
[2018-03-30] MEDS ORDERED: Prazosin CAP* 5 MG PO ONE (20:08)
[2018-03-30] MEDS ORDERED: Gabapentin CAP(*) 300 MG PO SCH (21:00)
[2018-03-30] MEDS ORDERED: Atorvastatin* 80 MG TAB PO ONE (21:00)
[2018-03-30] MEDS: Mycophenolate Mofetil TAB(*) 500 MG PO SCH (22:11)
[2018-03-30] MEDS: Gabapentin CAP(*) 300 MG PO SCH (22:12)
[2018-03-30] MEDS ORDERED: Naproxen TAB* 250 MG PO PRN (22:15)
[2018-03-30] MEDS: Topiramate TAB(*) 25 MG PO SCH (22:30)
[2018-03-30] MEDS: Acetaminop/Codeine 30 MG TAB* 1 TAB (300 MG/30 MG) PO PRN (22:37)
[2018-03-30] MEDS: VILAZODONE 10 MG PO SCH (22:37)
[2018-03-30] MEDS ORDERED: BREXPIPRAZOLE 0.5 MG PO SCH (23:00)
[2018-03-30] MEDS ORDERED: Magnesium Oxide TAB* 400 MG PO SCH (23:00)
--- NOTE | 2018-03-31 07:09 | ED ---
Progress - Progress Note Progress Note: This is suraj Marquez documenting for attending Dr. Gabe Go - Consult/PCP Time Called: 17:00 Course/Dx - Diagnoses Provider Diagnoses: Depression, Suicidal ideation, Unspecified mood [affective] disorder - Provider Notifications Discussed Care Of Patient With: Stoney Sykes Time Discussed With Above Provider: 11:05 Instructed by Provider To: Other - Per RN Dr. Mony Patterson recommends discharge, dx with mood disorder NOS. Discharge - Sign-Out/Discharge Documenting (check all that apply): Patient Departure - discharge - Discharge Plan Condition: Stable Disposition: HOME Patient Education Materials: Depression (ED), Post Traumatic Stress Disorder ( ED), Anxiety (ED), Suicide Prevention (ED) Referrals: Kimberlyn Dhillon MD [Primary Care Provider] - - Billing Disposition and Condition Condition: STABLE Disposition: Home Attestation Statement User Type: Provider - I, Dr. Bernal personally performed the services described in this documentation as scribed in my presence and it is both accurate and complete.
[2018-03-31] MEDS ORDERED: Omeprazole CAP* 20 MG PO SCH (07:30)
[2018-03-31] MEDS: Topiramate TAB(*) 25 MG PO SCH (07:39)
[2018-03-31] MEDS: Gabapentin CAP(*) 300 MG PO SCH (07:40)
[2018-03-31] MEDS: Mycophenolate Mofetil TAB(*) 500 MG PO SCH (07:41)
[2018-03-31] MEDS: VILAZODONE 10 MG PO SCH (07:43)
[2018-03-31] MEDS ORDERED: CMC: SitaGLIPtin (NF) 25 MG TAB PO SCH (09:00)
[2018-03-31] MEDS ORDERED: Prazosin CAP* 1 MG PO SCH (09:00)
[2018-03-31] MEDS: Acetaminop/Codeine 30 MG TAB* 1 TAB (300 MG/30 MG) PO PRN (10:47)
[2018-03-31 14:26] VITALS: BP 108/82
== END 2018-03-31 14:24 | disposition home or self-care (01) ==
LOC: ED 14:10
DX: F32.9 Major depressive disorder, single episode, unspecified (principal); R45.851 Suicidal ideations; F39 Unspecified mood [affective] disorder; E11.9 Type 2 diabetes mellitus without complications; R00.0 Tachycardia, unspecified; F17.210 Nicotine dependence, cigarettes, uncomplicated; Z79.4 Long term (current) use of insulin; Z79.899 Other long term (current) drug therapy; Z88.8 Allergy status to other drugs, medicaments and biological substances; Z88.2 Allergy status to sulfonamides; Z88.5 Allergy status to narcotic agent
CPT/HCPCS: 36415; 80053; 80307; 80320; 80329; 81003; 84443; 85025; 99284; A9270-GY; G0480

== ENCOUNTER 2018-04-05 12:51 | Inpatient (IN) | payer OTHER ==
--- NOTE | 2018-04-05 13:10 | ED ---
Psychiatric Complaint - HPI Summary HPI Summary: 37 y/o female presents to the ED c/o depression and SI with a plan. Pt states she feels like she is playing "cat and mouse with her life". PT has been under recent stress at home. Pt has thoughts to throw herself in front of moving traffic. Pt previously seen in the ED twice for similar episodes. Accompanied by residentialhome demonstration agent. Pt's therapist (Gardenia) believes the pt has been d/c too early previously b/c she is still having the same sx at home. - History Of Current Complaint Chief Complaint: EDMentalHealth Time Seen by Provider: 04/05/18 13:00 Hx Obtained From: Patient Hx Last Menstrual Period: nexplanon Onset/Duration: Lasting Days, Still Present Timing: Constant Character: Depressed Aggravating Factor(s): Recent Stress Alleviating Factor(s): Nothing Has Suicidal: Reports: Thoughts, With A Plan - Allergies/Home Medications Allergies/Adverse Reactions: Allergies Allergy/AdvReac Type Severity Reaction Status Date / Time Adhesive Tape Allergy Rash Verified 03/02/18 14:51 asenapine Allergy Rash Verified 03/02/18 14:51 bee venom protein (honey bee) Allergy Anaphylatic Verified 03/25/18 10:25 Shock lurasidone [From Latuda] Allergy Hives Verified 03/02/18 14:51 metoclopramide [From Reglan] Allergy Abdominal Verified 03/02/18 14:51 Pain paclitaxel [From Taxol] Allergy Hives Verified 03/02/18 14:51 Sulfa (Sulfonamide Allergy Unknown Verified 03/02/18 14:51 Antibiotics) Reaction Details sulfamethoxazole Allergy Hives Verified 03/02/18 14:51 [From Bactrim] trimethoprim [From Bactrim] Allergy Hives Verified 03/02/18 14:51 nalbuphine [From Nubain] AdvReac Rash Verified 03/02/18 14:51 paroxetine [From Paxil] AdvReac Vomiting Verified 03/02/18 14:51 tramadol AdvReac Rash Verified 03/02/18 14:51 "metal" Allergy Swelling Uncoded 02/08/18 16:01 zepeda Allergy Nausea And Uncoded 02/08/18 16:01 Vomiting PMH/Surg Hx/FS Hx/Imm Hx Previously Healthy: No Endocrine/Hematology History: Reports: Hx Diabetes - type 2 dm on insulin Cardiovascular History: Reports: Hx Angina, Hx Hypercholesterolemia, Other Cardiovascular Problems/Disorders - vasculitis. tachycardia Denies: Hx Coronary Artery Disease, Hx Hypertension - ON BP MEDS FOR TACHY, Hx Myocardial Infarction, Hx Pacemaker/ICD, Hx Peripheral Vascular Disease, Hx Valvular Heart Disease Respiratory History: Reports: Hx Asthma, Hx Sleep Apnea Denies: Hx Chronic Obstructive Pulmonary Disease (COPD), Other Respiratory Problems/Disorders GI History: Reports: Hx Crohn's Disease, Hx Gastroesophageal Reflux Disease, Hx Irritable Bowel, Other GI Disorders - gastroparesis History: Denies: Hx Dialysis, Hx Renal Disease, Other Problems/Disorders Musculoskeletal History: Reports: Other Musculoskeletal History - Ulnar nerve compression Right arm Denies: Hx Arthritis, Hx Osteoporosis Sensory History: Reports: Hx Contacts or Glasses Denies: Hx Legally Blind, Hx Deafness, Hx Hearing Aid Opthamlomology History: Reports: Hx Contacts or Glasses Denies: Hx Legally Blind Neurological History: Reports: Hx Headaches, Hx Migraine Denies: Hx Seizures, Hx Transient Ischemic Attacks (TIA), Other Neuro Impairments/Disorders Psychiatric History: Reports: Hx Anxiety, Hx Depression, Hx Panic Disorder - PTSD, Hx Post Traumatic Stress Disorder, Hx Inpatient Treatment, Hx Community Mental Health Tx, Hx Suicide Attempt, Other Psychiatric Issues/Disorders - Borderline Personality Disorder Denies: Hx Eating Disorder, Hx Bipolar Disorder, Hx of Violent Episodes Against Others - Surgical History Surgery Procedure, Year, and Place: Cholecystectomy;. Cardiac Catherterization- NO STENT; Hx Anesthesia Reactions: No - Immunization History Date of Tetanus Vaccine: utd Date of Influenza Vaccine: fall 2016 Infectious Disease History: No Infectious Disease History: Reports: Hx of Known/Suspected MRSA - treated. noncarrier now Denies: Traveled Outside the US in Last 30 Days - Family History Known Family History: Positive: Cardiac Disease, Diabetes, Other - blood clots ( mother), pacemaker (father) Negative: Hypertension - Social History Alcohol Use: None Hx Substance Use: Yes Substance Use Type: Reports: Marijuana Substance Use Comment - Amount & Last Used: Medical Marijuana Hx Tobacco Use: Yes Smoking Status (MU): Light Every Day Tobacco Smoker Type: Cigarettes Amount Used/How Often: 5 cigarettes/day Have You Smoked in the Last Year: Yes - states that she last smoked yesterday Review of Systems Constitutional: Negative Eyes: Negative ENT: Negative Cardiovascular: Negative Respiratory: Negative Gastrointestinal: Negative Genitourinary: Negative Musculoskeletal: Negative Skin: Negative Neurological: Negative Positive: Depressed All Other Systems Reviewed And Are Negative: Yes Physical Exam - Summary Physical Exam Summary: VITAL SIGNS: Reviewed. GENERAL: Patient is an obese female who is lying comfortable in the stretcher. Patient is not in any acute respiratory distress. HEAD AND FACE: No signs of trauma. No ecchymosis, hematomas or skull depressions. No sinus tenderness. EYES: PERRLA, EOMI x 2, No injected conjunctiva, no nystagmus. EARS: Hearing grossly intact. Ear canals and tympanic membranes are within normal limits. MOUTH: Oropharynx within normal limits. NECK: Supple, trachea is midline, no adenopathy, no JVD, no carotid bruit, no c- spine tenderness, neck with full ROM. CHEST: Symmetric, no tenderness at palpation LUNGS: Clear to auscultation bilaterally. No wheezing or crackles. CVS: Regular rate and rhythm, S1 and S2 present, no murmurs or gallops appreciated. ABDOMEN: Soft, non-tender. No signs of distention. No rebound no guarding, and no masses palpated. Bowel sounds are normal. EXTREMITIES: FROM in all major joints, no edema, no cyanosis or clubbing. NEURO: Alert and oriented x 3. No acute neurological deficits. Speech is normal and follows commands. SKIN: Dry and warm PSYCH: Depressed. The patient easily cries. Triage Information Reviewed: Yes Vital Signs On Initial Exam: Initial Vitals Temp Pulse Resp BP Pulse Ox 97.8 F 113 20 128/75 96 04/05/18 12:52 04/05/18 12:52 04/05/18 12:52 04/05/18 12:52 04/05/18 12:52 Vital Signs Reviewed: Yes Diagnostics - Vital Signs Vital Signs Temp Pulse Resp BP Pulse Ox 04/05/18 12:52 97.8 F 113 20 128/75 96 - Laboratory Result Diagrams: 04/05/18 13:12 04/05/18 13:12 Lab Statement: Any lab studies that have been ordered have been reviewed, and results considered in the medical decision making process. Course/Dx - Course Assessment/Plan: Pt has an increased WBC of 18.2 which is better than previous visits. Blood glucose 321 and she will use insulin pump with sliding scale. UA ( -) UTI. (+) opiates, barbiturates and cannabinoids. At his point the pt is medically cleared and awaiting MHE. After MHE by Dr. Sykes, pt will be admitted to [facility]. - Differential Dx/Clinical Impression Provider Diagnosis: Adjustment disorder Discharge - Sign-Out/Discharge Documenting (check all that apply): Patient Departure - Discharge Plan Condition: Stable Disposition: [facility]MITTED TO [facility] Referrals: Kimberlyn Dhillon MD [Primary Care Provider] -
[2018-04-05 13:25] LABS: ABS Basophils 0.2 10^3/ul (0-0.2); ABS Eosinophils 0.2 10^3/ul (0-0.6); ABS Lymphocytes 3.6 10^3/ul (1.0-4.8); ABS Monocytes 1.1 10^3/ul (0-0.8); ABS Neutrophils 13.1 10^3/ul (1.5-7.7); ABS Nucleated RBC 0 10^3/ul; Eosinophil % 1.1 % (0-6); Hematocrit 37 % (35-47); Hemoglobin 12.1 g/dl (12.0-16.0); Lymphocyte % 19.9 % (25-47); Mean Corpuscular HGB Conc 33 g/dl (31-36); Mean Corpuscular Hemoglobin 28 pg (27-31); Mean Corpuscular Volume 86 fL (80-97); Mean Platelet Volume 6.5 um3 (7.4-10.4); Nucleated Red Blood Cells % 0; Platelet Count 412 10^3/ul (150-450); Red Blood Count 4.28 10^6/ul (4.00-5.40); Red Cell Distribution Width 13 % (10.5-15); White Blood Count 18.2 10^3/ul (3.5-10.8)
[2018-04-05 13:41] LABS: EGFR Non-African American 134.2 (>60)
[2018-04-05 13:48] LABS: Urine Appearance Clear; Urine Blood Negative (Negative); Urine Color Yellow; Urine Ketones Negative (Negative); Urine Protein Negative (Negative); Urine Specific Gravity 1.005 (1.010-1.030); Urine Urobilinogen Negative (Negative)
[2018-04-05] MEDS ORDERED: Al Hydrox/Mg Hydrox/Simet LIQ* 30 ML UDC PO PRN (21:55)
[2018-04-05] MEDS ORDERED: Nicotine GUM* 2 MG PO PRN (21:55)
[2018-04-05] MEDS ORDERED: Acetaminophen TAB* 325 MG PO PRN (21:55)
[2018-04-05] MEDS ORDERED: Mouth Piece, Nicotine* 1 EACH CARTRIDGE INH SCH (21:55)
[2018-04-05] MEDS ORDERED: Nicotine Inhaler* 10 MG AMP INH PRN (21:55)
[2018-04-05] MEDS ORDERED: diPHENhydraMINE PO* 25 MG PO PRN (22:01)
[2018-04-05] MEDS ORDERED: PTO:EPINEPHrine PEN ADULT(NF) 0.3 MG SYRINGE IM PRN (22:20)
[2018-04-05] MEDS ORDERED: Naproxen TAB* 250 MG PO PRN (22:27)
[2018-04-05] MEDS ORDERED: Hemorrhoidal OINT TOPICAL PRN (22:28)
[2018-04-05] MEDS ORDERED: Calcium Carbonate CHEW TAB* 500 MG (TUMS) PO PRN (22:32)
[2018-04-05] MEDS ORDERED: Albuterol 2.5 MG/3 ML NEB.SOL* (0.083%) INH PRN (22:33)
[2018-04-05] MEDS ORDERED: Albuterol HFA INHALER* 8 gm MDI INH PRN (22:36)
[2018-04-05] MEDS ORDERED: Diclofenac Sodium EC TAB* 25 MG PO PRN (22:39)
[2018-04-05] MEDS ORDERED: CMCS:Brexpiprazole (NF) 0.5 MG TAB PO SCH (23:00)
[2018-04-05] MEDS: Prazosin CAP* 1 MG PO SCH (23:20)
[2018-04-05] MEDS: Insulin GLARGINE(*) 1 UNITS UNIT SUBCUT SCH (23:20)
[2018-04-05] MEDS: Gabapentin CAP(*) 300 MG PO SCH (23:20)
[2018-04-05] MEDS: Atorvastatin* 80 MG TAB PO SCH (23:20)
[2018-04-05] MEDS: Dicyclomine CAP* 10 MG PO SCH (23:20)
[2018-04-05] MEDS: Topiramate TAB(*) 25 MG PO SCH (23:20)
[2018-04-05] MEDS: Metoprolol Tartrate TAB* 50 mg PO SCH (23:20)
[2018-04-05] MEDS: Insulin LISPRO* 1 UNITS UNIT SUBCUT SCH (23:20)
[2018-04-05] MEDS: Mycophenolate Mofetil TAB(*) 500 MG PO SCH (23:20)
[2018-04-05] MEDS ORDERED: Melatonin 3 MG TAB PO ONE (23:31)
[2018-04-05] MEDS: Acetaminop/Codeine 30 MG TAB* 1 TAB (300 MG/30 MG) PO PRN (23:35)
[2018-04-06] MEDS: CMCS:Vilazodone (NF) 40 MG TAB PO SCH ×3 (00:05→21:56)
[2018-04-06] MEDS: LORazepam TAB(*) 0.5 MG PO PRN ×2 (00:40→08:56)
[2018-04-06] MEDS: Insulin LISPRO* 1 UNITS UNIT SUBCUT SCH ×4 (08:34→21:38)
[2018-04-06] MEDS: Insulin GLARGINE(*) 1 UNITS UNIT SUBCUT SCH ×2 (08:35→21:39)
[2018-04-06] MEDS: Dicyclomine CAP* 10 MG PO SCH ×2 (08:54→21:57)
[2018-04-06] MEDS: Mycophenolate Mofetil TAB(*) 500 MG PO SCH ×2 (08:55→21:57)
[2018-04-06] MEDS: CMCS:Sitagliptin (NF) 50 MG TAB PO SCH (08:56)
[2018-04-06] MEDS: Spironolactone TAB* 25 MG PO SCH (08:56)
[2018-04-06] MEDS: Prazosin CAP* 1 MG PO SCH ×2 (08:56→21:46)
[2018-04-06] MEDS: Cetirizine* 10 MG TAB PO SCH (08:57)
[2018-04-06] MEDS: Vitamin THERAPEUTIC TAB PO SCH (08:57)
[2018-04-06] MEDS: Magnesium Oxide TAB* 400 MG PO SCH (08:57)
[2018-04-06] MEDS: Ferrous Sulfate TAB* 325 MG PO SCH (08:57)
[2018-04-06] MEDS: Metoprolol Tartrate TAB* 50 mg PO SCH ×2 (08:58→21:45)
[2018-04-06] MEDS: Gabapentin CAP(*) 300 MG PO SCH ×2 (08:58→21:43)
[2018-04-06] MEDS: Topiramate TAB(*) 25 MG PO SCH ×2 (08:58→21:45)
[2018-04-06] MEDS: Dapsone TAB* 100 MG PO SCH (08:59)
[2018-04-06] MEDS: Fluticasone/Vilanterol MDI(NF) 200/25 MDI INH SCH (09:02)
[2018-04-06] MEDS: Omeprazole CAP* 20 MG PO SCH (09:03)
[2018-04-06] MEDS: Acetaminop/Codeine 30 MG TAB* 1 TAB (300 MG/30 MG) PO PRN ×2 (12:24→22:12)
[2018-04-06] MEDS ORDERED: Polyethyl Glycol/Propylene Gly OPHTH.SOLN BOTH EYES PRN (12:35)
[2018-04-06] MEDS: Loperamide CAP* 2 MG PO PRN (15:43)
[2018-04-06] MEDS: Ibuprofen TAB* 600 MG PO PRN (15:43)
[2018-04-06] MEDS: Ondansetron TAB* 4 MG PO PRN (16:15)
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
[2018-04-06] MEDS: Atorvastatin* 80 MG TAB PO SCH (18:39)
[2018-04-06] MEDS: Butalb/Acetamin/Caff TAB* 1 TAB PO PRN (20:04)
[2018-04-06] MEDS ORDERED: Melatonin (NF) ** ENTER STRENGTH IN LABEL DIRECTIONS PO SCH (21:00)
[2018-04-06] MEDS ORDERED: Melatonin 3 MG TAB PO SCH (22:04)
[2018-04-07] MEDS: LORazepam TAB(*) 0.5 MG PO PRN ×2 (01:01→23:57)
[2018-04-07] MEDS: Acetaminop/Codeine 30 MG TAB* 1 TAB (300 MG/30 MG) PO PRN ×2 (07:22→17:25)
[2018-04-07] MEDS: Ibuprofen TAB* 600 MG PO PRN ×2 (07:22→17:25)
[2018-04-07] MEDS: Omeprazole CAP* 20 MG PO SCH (09:43)
[2018-04-07] MEDS: Cetirizine* 10 MG TAB PO SCH (09:44)
[2018-04-07] MEDS: ARIPiprazole TAB* 5 MG PO SCH (09:44)
[2018-04-07] MEDS: Dapsone TAB* 100 MG PO SCH (09:45)
[2018-04-07] MEDS: Insulin LISPRO* 1 UNITS UNIT SUBCUT SCH ×4 (09:45→21:40)
[2018-04-07] MEDS: Ferrous Sulfate TAB* 325 MG PO SCH (09:46)
[2018-04-07] MEDS: Dicyclomine CAP* 10 MG PO SCH ×2 (09:46→21:34)
[2018-04-07] MEDS: Gabapentin CAP(*) 300 MG PO SCH ×2 (09:47→21:31)
[2018-04-07] MEDS: Fluticasone/Vilanterol MDI(NF) 200/25 MDI INH SCH (09:47)
[2018-04-07] MEDS: Mycophenolate Mofetil TAB(*) 500 MG PO SCH ×2 (09:48→21:34)
[2018-04-07] MEDS: Metoprolol Tartrate TAB* 50 mg PO SCH ×2 (09:48→21:31)
[2018-04-07] MEDS: Magnesium Oxide TAB* 400 MG PO SCH (09:48)
[2018-04-07] MEDS: Prazosin CAP* 1 MG PO SCH ×2 (09:49→21:37)
[2018-04-07] MEDS: CMCS:Sitagliptin (NF) 50 MG TAB PO SCH (09:49)
[2018-04-07] MEDS: Spironolactone TAB* 25 MG PO SCH (09:49)
[2018-04-07] MEDS: Topiramate TAB(*) 25 MG PO SCH ×2 (09:50→21:33)
[2018-04-07] MEDS: CMCS:Vilazodone (NF) 40 MG TAB PO SCH ×2 (09:50→21:30)
[2018-04-07] MEDS: Vitamin THERAPEUTIC TAB PO SCH (09:51)
[2018-04-07] MEDS: Insulin GLARGINE(*) 1 UNITS UNIT SUBCUT SCH ×2 (09:57→21:40)
[2018-04-07] MEDS: Ondansetron TAB* 4 MG PO PRN (11:23)
--- NOTE | 2018-04-07 16:13 | PN ---
MHU: Group Therapy Note - Service Type Service Type: [id number] Group Psychotherapy - Medication Education Group: Patient was attentive and participatory in group, and remained in good behavioral control. Patient expressed positive insights regarding relevant treatment interventions. Patient stated understanding of material discussed and had appropriate questions. Receptive to redirection when monopolizing group.
--- NOTE | 2018-04-07 18:16 | PN ---
Subjective - Subjective Date of Service: 04/07/18 Service Type: 84015 Hosp care 15 min low complexity Subjective: Jayy spent much of the day in her room until around 2 pm when she emerged and came into the milieu. Her agreement to stick to the behavior modification agreement that she signed the last time she was here is intact and she showed interest in working hard this visit and was positively receptive to content presented. She also, as is typical of Jayy's stays, has physical complaints, stating that she feels like her "insides are falling out" of her vagina. She reports this is painful and is helped by sitting on a pillow and/or using hot packs. I phoned Dr. Dimas who suggested that I contact gynecology, which will occur tomorrow. Objective - Appearance Appearance: Obese Dysmorphic Features: No Hygiene: Normal Grooming: Fairly Well Kept - Behavior Psychomotor Activities: Normal Exhibits Abnormal Movement: No - Attitude and Relatedness Attitude and Relatedness: Superficially Cooperative Eye Contact: Fair - Speech Quality: Unpressured Latencies: Normal Quantity: Appropriate - Mood Patient's Decription of Mood: "Terrible" - Affect Observed Affect: Constricted Affect Consistent with: Dysphoria - Thought Process Patient's Thought Process: Coherent Thought Content: Yes Passive Wish, Yes Suicidal Planning, No Homicidal Ideation, No Paranoid Ideation - Sensorium Experiencing Hallucinations: Yes Type of Hallucinations: Visual: No, Auditory: Yes, Command: Yes - Level of Consciousness Level of Consciousness: Alert Orientation: Yes Intact, Yes Orientated to Time, Yes Orientated to Place, Yes Orientated to Person - Impulse Control Impulse Control: Tenuous - Insight and Judgement Insight and Judgement: Fair - Group Participation Particating in Group Activities: Yes - Medication Management Medication Management Adherence: Yes - Additional Observations Comments: Jayy is invested in her physical health and can rattle off the three PRN medications she is using to manage the symptoms that she is using at this time. Her affect remains constricted with a few small smiles. Assessment - Assessment Merits Inpatient Hospitalization: For Immediate Safety, For Discharge Planning Inpatient DSM-V Dx: F43.12 Clinical Impression: Jayy is experiencing hallucinations consistent with borderline personality disorder exacerbation. She is struggling with similar stressors that she has been struggling with in the past. Plan - Plan Treatment Plan: Name: JAYY CANTU Birthdate: 1980 [id number] Continued Medication Management: Continue Outpt Medication Medications: Current Medications Acetaminophen (Tylenol Tab*) 650 mg PO Q4H PRN PRN Reason: PAIN or TEMP > 101 F Acetaminophen/Butalbital/Caffeine (Fioricet Tab*) 1 tab PO Q8H PRN PRN Reason: HEADACHE Last Admin: 04/06/18 20:04 Dose: 1 tab Acetaminophen/Codeine Phosphate (Tylenol/Codeine 30 Mg Tab*) 1 tab PO BID PRN PRN Reason: PAIN >4/10 Last Admin: 04/07/18 17:25 Dose: 1 tab Al Hydrox/Mg Hydrox/Simethicone (Maalox Plus*) 30 ml PO Q4H PRN PRN Reason: INDIGESTION Albuterol (Ventolin 2.5 Mg/3 Ml Neb.Smita*) 2.5 mg INH Q4H PRN PRN Reason: SOB/WHEEZING Albuterol (Ventolin Hfa Inhaler*) 2 puff INH Q6H PRN PRN Reason: SOB/WHEEZING Last Admin: 04/06/18 06:27 Dose: 2 puff Aripiprazole (Abilify Tab*) 5 mg PO DAILY [facility] Last Admin: 04/07/18 09:44 Dose: 5 mg Atorvastatin Calcium (Lipitor*) 80 mg PO QPM [facility] Last Admin: 04/06/18 18:39 Dose: 80 mg Calcium Carbonate (Tums*) 1,500 mg PO DAILY PRN PRN Reason: GERD Cetirizine HCl (Zyrtec*) 10 mg PO QAM [facility] Last Admin: 04/07/18 09:44 Dose: 10 mg Dapsone (Dapsone Tab*) 75 mg PO DAILY [facility] Last Admin: 04/07/18 09:45 Dose: 75 mg Device (Nicotine Mouth Piece*) 1 each INH .CARTRIDGE [facility] Diclofenac Sodium (Voltaren Ec Tab*) 50 mg PO TID PRN PRN Reason: PAIN Dicyclomine HCl (Bentyl Cap*) 10 mg PO BID [facility] Last Admin: 04/07/18 09:46 Dose: 10 mg Diphenhydramine HCl (Benadryl Po*) 25 mg PO DAILY PRN PRN Reason: ALLERGY SYMPTOMS Last Admin: 04/06/18 06:20 Dose: 25 mg Epinephrine HCl (Epipen Adult(Nf)) 0.3 mg IM ONCE PRN PRN Reason: ALLERGY SYMPTOMS Ferrous Sulfate (Ferrous Sulfate Tab*) 325 mg PO DAILY [facility] Last Admin: 04/07/18 09:46 Dose: 325 mg Fluticasone/Vilanterol (Breo Ellipta Mdi 200/25(Nf)) 1 puff INH DAILY [facility] Last Admin: 04/07/18 09:47 Dose: Not Given Gabapentin (Neurontin Cap(*)) 600 mg PO BID [facility] Last Admin: 04/07/18 09:47 Dose: 600 mg Ibuprofen (Motrin Tab*) 600 mg PO Q8H PRN PRN Reason: PAIN Last Admin: 04/07/18 17:25 Dose: 600 mg Insulin Glargine (Lantus(*)) 48 units SUBCUT BID@0900,2100 [facility] Last Admin: 04/07/18 09:57 Dose: 48 units Insulin Human Lispro (Humalog*) 0 units SUBCUT ACHS [facility]; Protocol Last Admin: 04/07/18 17:19 Dose: 3 unit Loperamide HCl (Imodium Cap*) 2 mg PO BID PRN PRN Reason: DIARRHEA Last Admin: 04/06/18 15:43 Dose: 2 mg Lorazepam (Ativan Tab(*)) 0.5 mg PO Q6H PRN PRN Reason: ANXIETY Last Admin: 04/07/18 01:01 Dose: 0.5 mg Magnesium Oxide (Magox 400 Tab*) 400 mg PO DAILY [facility] Last Admin: 04/07/18 09:48 Dose: 400 mg Melatonin (Melatonin) 5 mg PO BEDTIME [facility] Metoprolol Tartrate (Lopressor Tab*) 50 mg PO BID [facility] Last Admin: 04/07/18 09:48 Dose: 50 mg Multivitamins (Theragran Tab*) 1 tab PO DAILY [facility] Last Admin: 04/07/18 09:51 Dose: 1 tab Mycophenolate Mofetil (Cellcept Tab(*)) 1,500 mg PO BID [facility] Last Admin: 04/07/18 09:48 Dose: 1,500 mg Naproxen (Naprosyn Tab*) 500 mg PO BID PRN PRN Reason: PAIN Nicotine (Nicotine Inhaler*) 10 mg INH Q2H PRN PRN Reason: CRAVING Nicotine Polacrilex (Nicotine Gum*) 2 mg PO Q2H PRN PRN Reason: CRAVING Omeprazole (Prilosec Cap*) 20 mg PO QAM@0730 [facility] Last Admin: 04/07/18 09:43 Dose: 20 mg Ondansetron HCl (Zofran Tab*) 4 mg PO Q6H PRN PRN Reason: NAUSEA Last Admin: 04/07/18 11:23 Dose: 4 mg Phenyleph/Shark Oil/Min Oil/Petrol (Preparation H*) 1 applic TOPICAL TID PRN PRN Reason: DIRECTED Polyethyl Glycol/Propylene Glycol (Lubricant Eye Drops) 1 drop BOTH EYES Q2H PRN PRN Reason: DRY EYE Prazosin HCl (Minipress Cap*) 2 mg PO DAILY [facility] Last Admin: 04/07/18 09:49 Dose: 2 mg Prazosin HCl (Minipress Cap*) 8 mg PO BEDTIME [facility] Last Admin: 04/06/18 21:46 Dose: 8 mg Sitagliptin Phosphate (Januvia (Nf)) 50 mg PO QAM [facility] Last Admin: 04/07/18 09:49 Dose: 50 mg Sodium Chloride (Sodium Chloride 0.65% Nasal [place]*) 1 spray BOTH NARES Q4H PRN PRN Reason: nasal complaint Spironolactone (Aldactone Tab*) 50 mg PO QAM [facility] Last Admin: 04/07/18 09:49 Dose: 50 mg Topiramate (Topamax(*)) 75 mg PO BID [facility] Last Admin: 04/07/18 09:50 Dose: 75 mg Vilazodone HCl (Viibryd (Nf)) 20 mg PO BID [facility] Last Admin: 04/07/18 09:50 Dose: 20 mg - Discharge Plan Discharge Plan: Outpatient Follow Up Outpatient Program: [facility] Additional Comments: Jayy will engage in therapeutic and art work during her stay. We will not alter her medications, at this point, as she is already on a complicated regimen and medication changes do not seem to be indicated for the problems she is presenting.
[2018-04-07] MEDS: Atorvastatin* 80 MG TAB PO SCH (21:30)
[2018-04-07] MEDS: Prazosin CAP* 5 MG PO SCH (21:37)
[2018-04-08] MEDS: Ibuprofen TAB* 600 MG PO PRN ×2 (06:03→15:15)
[2018-04-08] MEDS: Acetaminop/Codeine 30 MG TAB* 1 TAB (300 MG/30 MG) PO PRN ×2 (06:04→15:15)
[2018-04-08] MEDS: Fluticasone/Vilanterol MDI(NF) 200/25 MDI INH SCH (08:13)
[2018-04-08] MEDS: Insulin LISPRO* 1 UNITS UNIT SUBCUT SCH ×4 (09:14→20:21)
[2018-04-08] MEDS: CMCS:Sitagliptin (NF) 50 MG TAB PO SCH (09:15)
[2018-04-08] MEDS: ARIPiprazole TAB* 5 MG PO SCH (09:15)
[2018-04-08] MEDS: Prazosin CAP* 1 MG PO SCH ×2 (09:15→20:21)
[2018-04-08] MEDS: Omeprazole CAP* 20 MG PO SCH (09:15)
[2018-04-08] MEDS: Topiramate TAB(*) 25 MG PO SCH ×2 (09:16→20:25)
[2018-04-08] MEDS: Metoprolol Tartrate TAB* 50 mg PO SCH ×2 (09:16→20:25)
[2018-04-08] MEDS: CMCS:Vilazodone (NF) 40 MG TAB PO SCH ×2 (09:16→20:18)
[2018-04-08] MEDS: Magnesium Oxide TAB* 400 MG PO SCH (09:16)
[2018-04-08] MEDS: Spironolactone TAB* 25 MG PO SCH (09:16)
[2018-04-08] MEDS: Mycophenolate Mofetil TAB(*) 500 MG PO SCH ×2 (09:16→20:23)
[2018-04-08] MEDS: Ferrous Sulfate TAB* 325 MG PO SCH (09:17)
[2018-04-08] MEDS: Dapsone TAB* 100 MG PO SCH (09:17)
[2018-04-08] MEDS: Gabapentin CAP(*) 300 MG PO SCH ×2 (09:17→20:24)
[2018-04-08] MEDS: Dicyclomine CAP* 10 MG PO SCH ×2 (09:18→20:23)
[2018-04-08] MEDS: Cetirizine* 10 MG TAB PO SCH (09:18)
[2018-04-08] MEDS: Vitamin THERAPEUTIC TAB PO SCH (09:18)
[2018-04-08] MEDS: Insulin GLARGINE(*) 1 UNITS UNIT SUBCUT SCH ×2 (09:19→20:23)
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
[2018-04-08] MEDS: Melatonin 3 MG TAB PO SCH (20:25)
[2018-04-08] MEDS: Prazosin CAP* 5 MG PO SCH (20:25)
[2018-04-08] MEDS: Atorvastatin* 80 MG TAB PO SCH (20:26)
[2018-04-09] MEDS: LORazepam TAB(*) 0.5 MG PO PRN ×2 (05:44→16:07)
[2018-04-09] MEDS: Topiramate TAB(*) 25 MG PO SCH ×2 (08:53→21:32)
[2018-04-09] MEDS: Gabapentin CAP(*) 300 MG PO SCH ×2 (08:53→21:27)
[2018-04-09] MEDS: Mycophenolate Mofetil TAB(*) 500 MG PO SCH ×2 (08:54→21:36)
[2018-04-09] MEDS: Metoprolol Tartrate TAB* 50 mg PO SCH ×2 (08:54→21:31)
[2018-04-09] MEDS: Ferrous Sulfate TAB* 325 MG PO SCH (08:54)
[2018-04-09] MEDS: Vitamin THERAPEUTIC TAB PO SCH (08:54)
[2018-04-09] MEDS: Omeprazole CAP* 20 MG PO SCH (08:54)
[2018-04-09] MEDS: Spironolactone TAB* 25 MG PO SCH (08:54)
[2018-04-09] MEDS: CMCS:Sitagliptin (NF) 50 MG TAB PO SCH (08:54)
[2018-04-09] MEDS: Cetirizine* 10 MG TAB PO SCH (08:54)
[2018-04-09] MEDS: ARIPiprazole TAB* 5 MG PO SCH (08:54)
[2018-04-09] MEDS: Magnesium Oxide TAB* 400 MG PO SCH (08:54)
[2018-04-09] MEDS: CMCS:Vilazodone (NF) 40 MG TAB PO SCH ×2 (08:55→21:35)
[2018-04-09] MEDS: Insulin LISPRO* 1 UNITS UNIT SUBCUT SCH ×4 (08:55→21:39)
[2018-04-09] MEDS: Insulin GLARGINE(*) 1 UNITS UNIT SUBCUT SCH ×2 (08:55→21:37)
[2018-04-09] MEDS: Dicyclomine CAP* 10 MG PO SCH ×2 (08:57→21:26)
[2018-04-09] MEDS: Prazosin CAP* 1 MG PO SCH ×2 (08:57→21:32)
[2018-04-09] MEDS: Dapsone TAB* 100 MG PO SCH (08:58)
[2018-04-09] MEDS: Fluticasone/Vilanterol MDI(NF) 200/25 MDI INH SCH (08:58)
[2018-04-09] MEDS: Acetaminop/Codeine 30 MG TAB* 1 TAB (300 MG/30 MG) PO PRN ×2 (10:17→18:42)
[2018-04-09] MEDS: Ibuprofen TAB* 600 MG PO PRN ×2 (10:17→18:44)
[2018-04-09] MEDS: Atorvastatin* 80 MG TAB PO SCH (21:26)
[2018-04-09] MEDS: Melatonin 3 MG TAB PO SCH (21:28)
[2018-04-09] MEDS: Prazosin CAP* 5 MG PO SCH (21:31)
[2018-04-09] MEDS: Mometasone/Formoter 200/5 MDI INH SCH (21:43)
[2018-04-10] MEDS: LORazepam TAB(*) 0.5 MG PO PRN (05:46)
[2018-04-10] MEDS: Insulin LISPRO* 1 UNITS UNIT SUBCUT SCH ×4 (10:02→20:45)
[2018-04-10] MEDS: Insulin GLARGINE(*) 1 UNITS UNIT SUBCUT SCH ×2 (10:02→20:47)
[2018-04-10] MEDS: Gabapentin CAP(*) 300 MG PO SCH ×2 (10:03→20:54)
[2018-04-10] MEDS: Cetirizine* 10 MG TAB PO SCH (10:03)
[2018-04-10] MEDS: Topiramate TAB(*) 25 MG PO SCH ×2 (10:03→20:58)
[2018-04-10] MEDS: Prazosin CAP* 1 MG PO SCH ×2 (10:04→20:57)
[2018-04-10] MEDS: ARIPiprazole TAB* 5 MG PO SCH (10:05)
[2018-04-10] MEDS: Metoprolol Tartrate TAB* 50 mg PO SCH ×2 (10:05→20:56)
[2018-04-10] MEDS: Ferrous Sulfate TAB* 325 MG PO SCH (10:05)
[2018-04-10] MEDS: Vitamin THERAPEUTIC TAB PO SCH (10:05)
[2018-04-10] MEDS: Spironolactone TAB* 25 MG PO SCH (10:05)
[2018-04-10] MEDS: CMCS:Sitagliptin (NF) 50 MG TAB PO SCH (10:06)
[2018-04-10] MEDS: Dicyclomine CAP* 10 MG PO SCH ×2 (10:06→20:53)
[2018-04-10] MEDS: Mycophenolate Mofetil TAB(*) 500 MG PO SCH ×2 (10:06→20:56)
[2018-04-10] MEDS: Magnesium Oxide TAB* 400 MG PO SCH (10:06)
[2018-04-10] MEDS: Mometasone/Formoter 200/5 MDI INH SCH ×2 (10:07→22:23)
[2018-04-10] MEDS: Omeprazole CAP* 20 MG PO SCH (10:12)
[2018-04-10] MEDS: CMCS:Vilazodone (NF) 40 MG TAB PO SCH ×2 (10:31→20:59)
[2018-04-10] MEDS: Dapsone TAB* 100 MG PO SCH (10:31)
[2018-04-10] MEDS: Ibuprofen TAB* 600 MG PO PRN ×2 (12:09→21:04)
[2018-04-10] MEDS: Acetaminop/Codeine 30 MG TAB* 1 TAB (300 MG/30 MG) PO PRN ×2 (12:10→21:03)
--- NOTE | 2018-04-10 17:58 | PN ---
Subjective - Subjective Subjective: Jayy endorses improving mood despite disrupted sleep because of night terrors and daytime tiredness. She denies suicidal ideation or urges for sib but does nt contract for safety if discharge. She asserts having been diligently working on assigned to target BPD, PTSD and coping skills. Objective - Appearance Appearance: Obese Dysmorphic Features: No Hygiene: Normal Grooming: Well Kept - Behavior Psychomotor Activities: Normal Exhibits Abnormal Movement: No - Attitude and Relatedness Attitude and Relatedness: Cooperative Eye Contact: Fair - Speech Quality: Unpressured Latencies: Normal Quantity: Appropriate - Mood Patient's Decription of Mood: better - Affect Observed Affect: Constricted Affect Consistent with: Dysphoria - Thought Process Patient's Thought Process: Coherent, Goal Directed Thought Content: No Passive Wish, No Suicidal Planning, No Homicidal Ideation, No Paranoid Ideation - Sensorium Experiencing Hallucinations: No, Sensorium is Clear - Level of Consciousness Level of Consciousness: Alert Orientation: Yes Intact - Impulse Control Impulse Control: Intact - Insight and Judgement Insight and Judgement: Poor - Group Participation Particating in Group Activities: Yes - Medication Management Medication Management Adherence: Yes Assessment - Assessment Inpatient DSM-V Dx: F43.12 Clinical Impression: Stabilizing in this structured setting, appears invested in remaining in the sick role. Plan - Plan Treatment Plan: Name: JAYY CANTU Birthdate: 1980 [id number] Continued Medication Management: Continue Outpt Medication Medications: Current Medications Acetaminophen (Tylenol Tab*) 650 mg PO Q4H PRN PRN Reason: PAIN or TEMP > 101 F Acetaminophen/Butalbital/Caffeine (Fioricet Tab*) 1 tab PO Q8H PRN PRN Reason: HEADACHE Last Admin: 04/06/18 20:04 Dose: 1 tab Acetaminophen/Codeine Phosphate (Tylenol/Codeine 30 Mg Tab*) 1 tab PO BID PRN PRN Reason: PAIN >4/10 Last Admin: 04/10/18 12:10 Dose: 1 tab Al Hydrox/Mg Hydrox/Simethicone (Maalox Plus*) 30 ml PO Q4H PRN PRN Reason: INDIGESTION Albuterol (Ventolin 2.5 Mg/3 Ml Neb.Smita*) 2.5 mg INH Q4H PRN PRN Reason: SOB/WHEEZING Albuterol (Ventolin Hfa Inhaler*) 2 puff INH Q6H PRN PRN Reason: SOB/WHEEZING Last Admin: 04/06/18 06:27 Dose: 2 puff Aripiprazole (Abilify Tab*) 5 mg PO DAILY [facility] Last Admin: 04/10/18 10:05 Dose: 5 mg Atorvastatin Calcium (Lipitor*) 80 mg PO QPM [facility] Last Admin: 04/09/18 21:26 Dose: 80 mg Calcium Carbonate (Tums*) 1,500 mg PO DAILY PRN PRN Reason: GERD Cetirizine HCl (Zyrtec*) 10 mg PO QAM [facility] Last Admin: 04/10/18 10:03 Dose: 10 mg Dapsone (Dapsone Tab*) 75 mg PO DAILY [facility] Last Admin: 04/10/18 10:31 Dose: 75 mg Device (Nicotine Mouth Piece*) 1 each INH .CARTRIDGE [facility] Diclofenac Sodium (Voltaren Ec Tab*) 50 mg PO TID PRN PRN Reason: PAIN Dicyclomine HCl (Bentyl Cap*) 10 mg PO BID [facility] Last Admin: 04/10/18 10:06 Dose: 10 mg Diphenhydramine HCl (Benadryl Po*) 25 mg PO DAILY PRN PRN Reason: ALLERGY SYMPTOMS Last Admin: 04/06/18 06:20 Dose: 25 mg Epinephrine HCl (Epipen Adult(Nf)) 0.3 mg IM ONCE PRN PRN Reason: ALLERGY SYMPTOMS Ferrous Sulfate (Ferrous Sulfate Tab*) 325 mg PO DAILY [facility] Last Admin: 04/10/18 10:05 Dose: 325 mg Gabapentin (Neurontin Cap(*)) 600 mg PO BID [facility] Last Admin: 04/10/18 10:03 Dose: 600 mg Ibuprofen (Motrin Tab*) 600 mg PO Q8H PRN PRN Reason: PAIN Last Admin: 04/10/18 12:09 Dose: 600 mg Insulin Glargine (Lantus(*)) 48 units SUBCUT BID@0900,2100 [facility] Last Admin: 04/10/18 10:02 Dose: 48 units Insulin Human Lispro (Humalog*) 0 units SUBCUT ACHS [facility]; Protocol Last Admin: 04/10/18 12:08 Dose: 3 unit Loperamide HCl (Imodium Cap*) 2 mg PO BID PRN PRN Reason: DIARRHEA Last Admin: 04/06/18 15:43 Dose: 2 mg Lorazepam (Ativan Tab(*)) 0.5 mg PO Q6H PRN PRN Reason: ANXIETY Last Admin: 04/10/18 05:46 Dose: 0.5 mg Magnesium Oxide (Magox 400 Tab*) 400 mg PO DAILY [facility] Last Admin: 04/10/18 10:06 Dose: 400 mg Melatonin (Melatonin) 6 mg PO BEDTIME [facility] Last Admin: 04/09/18 21:28 Dose: 6 mg Metoprolol Tartrate (Lopressor Tab*) 50 mg PO BID [facility] Last Admin: 04/10/18 10:05 Dose: 50 mg Mometasone Furoate/Formoterol Fumar (Dulera 200/5 Mdi*) 2 puff INH BID [facility] Last Admin: 04/10/18 10:07 Dose: Not Given Multivitamins (Theragran Tab*) 1 tab PO DAILY [facility] Last Admin: 04/10/18 10:05 Dose: 1 tab Mycophenolate Mofetil (Cellcept Tab(*)) 1,500 mg PO BID [facility] Last Admin: 04/10/18 10:06 Dose: 1,500 mg Naproxen (Naprosyn Tab*) 500 mg PO BID PRN PRN Reason: PAIN Last Admin: 04/08/18 20:26 Dose: 500 mg Nicotine (Nicotine Inhaler*) 10 mg INH Q2H PRN PRN Reason: CRAVING Nicotine Polacrilex (Nicotine Gum*) 2 mg PO Q2H PRN PRN Reason: CRAVING Omeprazole (Prilosec Cap*) 20 mg PO QAM@0730 [facility] Last Admin: 04/10/18 10:12 Dose: 20 mg Ondansetron HCl (Zofran Tab*) 4 mg PO Q6H PRN PRN Reason: NAUSEA Last Admin: 04/07/18 11:23 Dose: 4 mg Phenyleph/Shark Oil/Min Oil/Petrol (Preparation H*) 1 applic TOPICAL TID PRN PRN Reason: DIRECTED Polyethyl Glycol/Propylene Glycol (Lubricant Eye Drops) 1 drop BOTH EYES Q2H PRN PRN Reason: DRY EYE Prazosin HCl (Minipress Cap*) 2 mg PO DAILY [facility] Last Admin: 04/10/18 10:04 Dose: 2 mg Prazosin HCl (Minipress Cap*) 5 mg PO BEDTIME [facility] Last Admin: 04/09/18 21:31 Dose: 5 mg Prazosin HCl (Minipress Cap*) 3 mg PO BEDTIME [facility] Last Admin: 04/09/18 21:32 Dose: 3 mg Sitagliptin Phosphate (Januvia (Nf)) 50 mg PO QAM [facility] Last Admin: 04/10/18 10:06 Dose: 50 mg Sodium Chloride (Sodium Chloride 0.65% Nasal [place]*) 1 spray BOTH NARES Q4H PRN PRN Reason: nasal complaint Spironolactone (Aldactone Tab*) 50 mg PO QAM [facility] Last Admin: 04/10/18 10:05 Dose: 50 mg Topiramate (Topamax(*)) 75 mg PO BID [facility] Last Admin: 04/10/18 10:03 Dose: 75 mg Vilazodone HCl (Viibryd (Nf)) 20 mg PO BID [facility] Last Admin: 04/10/18 10:31 Dose: 20 mg - Discharge Plan Discharge Plan: Outpatient Follow Up Outpatient Program: [facility]
[2018-04-10] MEDS: Atorvastatin* 80 MG TAB PO SCH (20:55)
[2018-04-10] MEDS: Melatonin 3 MG TAB PO SCH (20:55)
[2018-04-10] MEDS: Prazosin CAP* 5 MG PO SCH (20:57)
[2018-04-11] MEDS: Acetaminop/Codeine 30 MG TAB* 1 TAB (300 MG/30 MG) PO PRN (07:45)
[2018-04-11] MEDS: Ibuprofen TAB* 600 MG PO PRN (07:45)
[2018-04-11] MEDS: Ferrous Sulfate TAB* 325 MG PO SCH (09:59)
[2018-04-11] MEDS: Gabapentin CAP(*) 300 MG PO SCH ×2 (10:00→21:33)
[2018-04-11] MEDS: Prazosin CAP* 1 MG PO SCH ×2 (10:02→21:31)
[2018-04-11] MEDS: Mycophenolate Mofetil TAB(*) 500 MG PO SCH ×2 (10:03→21:34)
[2018-04-11] MEDS: ARIPiprazole TAB* 5 MG PO SCH (10:04)
[2018-04-11] MEDS: Spironolactone TAB* 25 MG PO SCH (10:04)
[2018-04-11] MEDS: Metoprolol Tartrate TAB* 50 mg PO SCH ×2 (10:05→21:32)
[2018-04-11] MEDS: Topiramate TAB(*) 25 MG PO SCH ×2 (10:07→21:33)
[2018-04-11] MEDS: Vitamin THERAPEUTIC TAB PO SCH (10:08)
[2018-04-11] MEDS: Dicyclomine CAP* 10 MG PO SCH ×2 (10:09→21:34)
[2018-04-11] MEDS: Magnesium Oxide TAB* 400 MG PO SCH (10:09)
[2018-04-11] MEDS: Cetirizine* 10 MG TAB PO SCH (10:10)
[2018-04-11] MEDS: CMCS:Vilazodone (NF) 40 MG TAB PO SCH ×2 (10:10→21:30)
[2018-04-11] MEDS: Dapsone TAB* 100 MG PO SCH (10:11)
[2018-04-11] MEDS: CMCS:Sitagliptin (NF) 50 MG TAB PO SCH (10:13)
[2018-04-11] MEDS: Insulin GLARGINE(*) 1 UNITS UNIT SUBCUT SCH ×2 (10:14→21:35)
[2018-04-11] MEDS: Insulin LISPRO* 1 UNITS UNIT SUBCUT SCH ×4 (10:17→21:34)
[2018-04-11] MEDS: Mometasone/Formoter 200/5 MDI INH SCH ×2 (10:25→23:00)
[2018-04-11] MEDS: Omeprazole CAP* 20 MG PO SCH (10:25)
--- NOTE | 2018-04-11 11:45 | PN ---
MHU: Group Therapy Note - Service Type Service Type: [id number] Group Psychotherapy - Cognitive Behavioral Group Therapy ( CBT):Patient was attentive and participatory in CBT programming this morning, and remained in good behavioral control. Patient expressed positive insights regarding relevant treatment interventions and goals.
[2018-04-11] MEDS: Butalb/Acetamin/Caff TAB* 1 TAB PO PRN (15:47)
--- NOTE | 2018-04-11 16:31 | PN ---
Subjective - Subjective Date of Service: 04/11/18 Service Type: 66910 Hosp care 35 min high complexity Subjective: Jayy and I discuss her discharge. She is eager to stay the full week and leave Wednesday so she can avoid what she feels like is a stressful day schedule. She was then agreeable to leaving so she could go to an appointment to allow her to transition to supported rather than supportive housing. Nevertheless, Wednesday is the day chosen as that is the day most consistent with the therapeutic needs that the hospital can provide for. Objective - Appearance Appearance: Obese Dysmorphic Features: No Hygiene: Normal Grooming: Disheveled - Behavior Psychomotor Activities: Normal Exhibits Abnormal Movement: No - Attitude and Relatedness Attitude and Relatedness: Needy Eye Contact: Fair - Speech Quality: Unpressured Latencies: Normal Quantity: Appropriate - Mood Patient's Decription of Mood: "Upset" - Affect Observed Affect: Constricted Affect Consistent with: Dysphoria - Thought Process Patient's Thought Process: Coherent, Goal Directed Thought Content: Yes Passive Wish, No Suicidal Planning, No Homicidal Ideation, No Paranoid Ideation - Sensorium Experiencing Hallucinations: No, Sensorium is Clear Type of Hallucinations: Visual: No, Auditory: No, Command: No - Level of Consciousness Level of Consciousness: Alert Orientation: Yes Intact, Yes Orientated to Time, Yes Orientated to Place, Yes Orientated to Person - Impulse Control Impulse Control: Tenuous - Insight and Judgement Insight and Judgement: Fair - Group Participation Particating in Group Activities: Yes - Medication Management Medication Management Adherence: Yes - Additional Observations Comments: Jayy is invested in her physical health and can rattle off the three PRN medications she is using to manage the symptoms that she is using at this time. Her affect remains constricted with a few small smiles. Jayy states she cannot sleep more than 2 hours at a time. We raise the Melatonin to 9 mg. Assessment - Assessment Merits Inpatient Hospitalization: For Immediate Safety, For Discharge Planning Inpatient DSM-V Dx: F43.12 Clinical Impression: Jayy is somewhat more stable than she was at admission. Although she states she is not feeling well, she demonstrates good facility with using coping skills and explaining them to herself. She seems to lack the ability to follow through on utilizing them at this point. Plan - Plan Treatment Plan: Name: JAYY CANTU Birthdate: 1980 [id number] Medications: Current Medications Acetaminophen (Tylenol Tab*) 650 mg PO Q4H PRN PRN Reason: PAIN or TEMP > 101 F Acetaminophen/Butalbital/Caffeine (Fioricet Tab*) 1 tab PO Q8H PRN PRN Reason: HEADACHE Last Admin: 04/11/18 15:47 Dose: 1 tab Acetaminophen/Codeine Phosphate (Tylenol/Codeine 30 Mg Tab*) 1 tab PO BID PRN PRN Reason: PAIN >4/10 Last Admin: 04/11/18 07:45 Dose: 1 tab Al Hydrox/Mg Hydrox/Simethicone (Maalox Plus*) 30 ml PO Q4H PRN PRN Reason: INDIGESTION Albuterol (Ventolin 2.5 Mg/3 Ml Neb.Smita*) 2.5 mg INH Q4H PRN PRN Reason: SOB/WHEEZING Albuterol (Ventolin Hfa Inhaler*) 2 puff INH Q6H PRN PRN Reason: SOB/WHEEZING Last Admin: 04/06/18 06:27 Dose: 2 puff Aripiprazole (Abilify Tab*) 5 mg PO DAILY [facility] Last Admin: 04/11/18 10:04 Dose: 5 mg Atorvastatin Calcium (Lipitor*) 80 mg PO QPM [facility] Last Admin: 04/10/18 20:55 Dose: 80 mg Calcium Carbonate (Tums*) 1,500 mg PO DAILY PRN PRN Reason: GERD Cetirizine HCl (Zyrtec*) 10 mg PO QAM [facility] Last Admin: 04/11/18 10:10 Dose: 10 mg Dapsone (Dapsone Tab*) 75 mg PO DAILY [facility] Last Admin: 04/11/18 10:11 Dose: 75 mg Device (Nicotine Mouth Piece*) 1 each INH .CARTRIDGE [facility] Diclofenac Sodium (Voltaren Ec Tab*) 50 mg PO TID PRN PRN Reason: PAIN Dicyclomine HCl (Bentyl Cap*) 10 mg PO BID [facility] Last Admin: 04/11/18 10:09 Dose: 10 mg Diphenhydramine HCl (Benadryl Po*) 25 mg PO DAILY PRN PRN Reason: ALLERGY SYMPTOMS Last Admin: 04/06/18 06:20 Dose: 25 mg Epinephrine HCl (Epipen Adult(Nf)) 0.3 mg IM ONCE PRN PRN Reason: ALLERGY SYMPTOMS Ferrous Sulfate (Ferrous Sulfate Tab*) 325 mg PO DAILY [facility] Last Admin: 04/11/18 09:59 Dose: 325 mg Gabapentin (Neurontin Cap(*)) 600 mg PO BID [facility] Last Admin: 04/11/18 10:00 Dose: 600 mg Ibuprofen (Motrin Tab*) 600 mg PO Q8H PRN PRN Reason: PAIN Last Admin: 04/11/18 07:45 Dose: 600 mg Insulin Glargine (Lantus(*)) 48 units SUBCUT BID@0900,2100 [facility] Last Admin: 04/11/18 10:14 Dose: 48 units Insulin Human Lispro (Humalog*) 0 units SUBCUT ACHS [facility]; Protocol Last Admin: 04/11/18 11:50 Dose: 6 unit Loperamide HCl (Imodium Cap*) 2 mg PO BID PRN PRN Reason: DIARRHEA Last Admin: 04/06/18 15:43 Dose: 2 mg Lorazepam (Ativan Tab(*)) 0.5 mg PO Q6H PRN PRN Reason: ANXIETY Last Admin: 04/10/18 05:46 Dose: 0.5 mg Magnesium Oxide (Magox 400 Tab*) 400 mg PO DAILY [facility] Last Admin: 04/11/18 10:09 Dose: 400 mg Melatonin (Melatonin) 9 mg PO BEDTIME [facility] Metoprolol Tartrate (Lopressor Tab*) 50 mg PO BID [facility] Last Admin: 04/11/18 10:05 Dose: 50 mg Mometasone Furoate/Formoterol Fumar (Dulera 200/5 Mdi*) 2 puff INH BID [facility] Last Admin: 04/11/18 10:25 Dose: Not Given Multivitamins (Theragran Tab*) 1 tab PO DAILY [facility] Last Admin: 04/11/18 10:08 Dose: 1 tab Mycophenolate Mofetil (Cellcept Tab(*)) 1,500 mg PO BID [facility] Last Admin: 04/11/18 10:03 Dose: 1,500 mg Naproxen (Naprosyn Tab*) 500 mg PO BID PRN PRN Reason: PAIN Last Admin: 04/08/18 20:26 Dose: 500 mg Nicotine (Nicotine Inhaler*) 10 mg INH Q2H PRN PRN Reason: CRAVING Nicotine Polacrilex (Nicotine Gum*) 2 mg PO Q2H PRN PRN Reason: CRAVING Omeprazole (Prilosec Cap*) 20 mg PO QAM@0730 [facility] Last Admin: 04/11/18 10:25 Dose: 20 mg Ondansetron HCl (Zofran Tab*) 4 mg PO Q6H PRN PRN Reason: NAUSEA Last Admin: 04/07/18 11:23 Dose: 4 mg Phenyleph/Shark Oil/Min Oil/Petrol (Preparation H*) 1 applic TOPICAL TID PRN PRN Reason: DIRECTED Polyethyl Glycol/Propylene Glycol (Lubricant Eye Drops) 1 drop BOTH EYES Q2H PRN PRN Reason: DRY EYE Prazosin HCl (Minipress Cap*) 2 mg PO DAILY [facility] Last Admin: 04/11/18 10:02 Dose: 2 mg Prazosin HCl (Minipress Cap*) 5 mg PO BEDTIME [facility] Last Admin: 04/10/18 20:57 Dose: 5 mg Prazosin HCl (Minipress Cap*) 3 mg PO BEDTIME [facility] Last Admin: 04/10/18 20:57 Dose: 3 mg Sitagliptin Phosphate (Januvia (Nf)) 50 mg PO QAM [facility] Last Admin: 04/11/18 10:13 Dose: 50 mg Sodium Chloride (Sodium Chloride 0.65% Nasal [place]*) 1 spray BOTH NARES Q4H PRN PRN Reason: nasal complaint Spironolactone (Aldactone Tab*) 50 mg PO QAM [facility] Last Admin: 04/11/18 10:04 Dose: 50 mg Topiramate (Topamax(*)) 75 mg PO BID [facility] Last Admin: 04/11/18 10:07 Dose: 75 mg Vilazodone HCl (Viibryd (Nf)) 20 mg PO BID [facility] Last Admin: 04/11/18 10:10 Dose: 20 mg - Discharge Plan Discharge Plan: Outpatient Follow Up Outpatient Program: [facility] Additional Comments: Jayy will engage in therapeutic and art work during her stay. We will not alter her medications, at this point, with the exception of a 3 mg increase in melatonin, as she is already on a complicated regimen and medication changes do not seem to be indicated for the problems she is presenting. She will be discharged Wednesday with the time to be associated with her [facility] appointments.
[2018-04-11] MEDS: Prazosin CAP* 5 MG PO SCH (21:30)
[2018-04-11] MEDS: Melatonin 3 MG TAB PO SCH (21:31)
[2018-04-11] MEDS: Atorvastatin* 80 MG TAB PO SCH (21:34)
[2018-04-12] MEDS: Acetaminop/Codeine 30 MG TAB* 1 TAB (300 MG/30 MG) PO PRN ×2 (02:14→21:18)
[2018-04-12] MEDS: Saline NASAL SPRAY 0.65%* BTL BOTH NARES PRN (02:19)
[2018-04-12] MEDS: LORazepam TAB(*) 0.5 MG PO PRN (05:52)
[2018-04-12] MEDS: Insulin GLARGINE(*) 1 UNITS UNIT SUBCUT SCH ×2 (10:09→21:34)
[2018-04-12] MEDS: Spironolactone TAB* 25 MG PO SCH (10:10)
[2018-04-12] MEDS: CMCS:Sitagliptin (NF) 50 MG TAB PO SCH (10:11)
[2018-04-12] MEDS: Gabapentin CAP(*) 300 MG PO SCH ×2 (10:11→21:13)
[2018-04-12] MEDS: Mycophenolate Mofetil TAB(*) 500 MG PO SCH ×2 (10:11→21:15)
[2018-04-12] MEDS: Prazosin CAP* 1 MG PO SCH ×2 (10:11→21:16)
[2018-04-12] MEDS: Topiramate TAB(*) 25 MG PO SCH ×2 (10:12→21:17)
[2018-04-12] MEDS: Dapsone TAB* 100 MG PO SCH (10:13)
[2018-04-12] MEDS: Dicyclomine CAP* 10 MG PO SCH ×2 (10:15→21:12)
[2018-04-12] MEDS: ARIPiprazole TAB* 5 MG PO SCH (10:16)
[2018-04-12] MEDS: Magnesium Oxide TAB* 400 MG PO SCH (10:16)
[2018-04-12] MEDS: Cetirizine* 10 MG TAB PO SCH (10:16)
[2018-04-12] MEDS: Metoprolol Tartrate TAB* 50 mg PO SCH ×2 (10:16→21:15)
[2018-04-12] MEDS: Vitamin THERAPEUTIC TAB PO SCH (10:16)
[2018-04-12] MEDS: Omeprazole CAP* 20 MG PO SCH (10:17)
[2018-04-12] MEDS: Ferrous Sulfate TAB* 325 MG PO SCH (10:17)
[2018-04-12] MEDS: CMCS:Vilazodone (NF) 40 MG TAB PO SCH ×2 (10:18→21:18)
[2018-04-12] MEDS: Mometasone/Formoter 200/5 MDI INH SCH ×2 (10:18→22:04)
[2018-04-12] MEDS: Butalb/Acetamin/Caff TAB* 1 TAB PO PRN (10:38)
[2018-04-12] MEDS: Insulin LISPRO* 1 UNITS UNIT SUBCUT SCH ×4 (11:04→21:33)
[2018-04-12] MEDS ORDERED: SUMAtriptan TAB* 50 MG PO ONE (11:57)
--- NOTE | 2018-04-12 14:48 | PN ---
Subjective - Subjective Date of Service: 04/12/18 Service Type: [id number] Hosp care 35 min high complexity Subjective: Despite the push to get Jayy discharged today, Jayy pushed back and stated she would be safer tomorrow. Today she was waylaid by a migraine which we treated with Imitrex. Once she was out of bed, she participated in the milieu with a few women who were coloring together. She teasingly asked if she could use her own colored pencils as someone else has their own colored pencils. Despite her relative difficulty with following rules and not being the exception to any of them, she did well with not getting her way. Reports of her behavior from the milieu indicate that she can be interpreted as difficult to work with. Objective - Appearance Appearance: Obese Dysmorphic Features: No Hygiene: Normal Grooming: Disheveled - Behavior Psychomotor Activities: Normal Exhibits Abnormal Movement: No - Attitude and Relatedness Attitude and Relatedness: Superficially Cooperative Eye Contact: Fair - Speech Quality: Unpressured Latencies: Normal Quantity: Appropriate - Mood Patient's Decription of Mood: "Okay" - Affect Observed Affect: Constricted Affect Consistent with: Dysphoria - Thought Process Patient's Thought Process: Coherent Thought Content: Yes Passive Wish, Yes Suicidal Planning, No Homicidal Ideation, No Paranoid Ideation - Sensorium Experiencing Hallucinations: No, Sensorium is Clear Type of Hallucinations: Visual: No, Auditory: No, Command: No - Level of Consciousness Level of Consciousness: Alert Orientation: Yes Intact, Yes Orientated to Time, Yes Orientated to Place, Yes Orientated to Person - Impulse Control Impulse Control: Tenuous - Insight and Judgement Insight and Judgement: Good - Group Participation Particating in Group Activities: Yes - Medication Management Medication Management Adherence: Yes - Additional Observations Comments: Jayy is invested in her physical health and can rattle off the three PRN medications she is using to manage the symptoms that she is using at this time. Her affect remains constricted with a few small smiles. Jayy states she cannot sleep more than 2 hours at a time. We raised the Melatonin to 9 mg. She offered no complaints today. She stated she is suicidal today but would be less so tomorrow. Assessment - Assessment Inpatient DSM-V Dx: F43.12 Clinical Impression: Jayy is somewhat more stable than she was at admission. Although she states she is not feeling well, she demonstrates good facility with using coping skills and explaining them to herself. She seems to lack the ability to follow through on utilizing them at this point. I spoke with her at length about her safety and her ability to make rules for herself that she could use. I gave her further homework and she established that once discharged Wednesday she would be able to look forward with some large amount of hope to get to the meeting where she will eventually transition from [facility] to her own apartment. Plan - Plan Treatment Plan: Name: JAYY CANTU Birthdate: 1980 [id number] Medications: Current Medications Acetaminophen (Tylenol Tab*) 650 mg PO Q4H PRN PRN Reason: PAIN or TEMP > 101 F Acetaminophen/Butalbital/Caffeine (Fioricet Tab*) 1 tab PO Q8H PRN PRN Reason: HEADACHE Last Admin: 04/12/18 10:38 Dose: 1 tab Acetaminophen/Codeine Phosphate (Tylenol/Codeine 30 Mg Tab*) 1 tab PO BID PRN PRN Reason: PAIN >4/10 Last Admin: 04/12/18 02:14 Dose: 1 tab Al Hydrox/Mg Hydrox/Simethicone (Maalox Plus*) 30 ml PO Q4H PRN PRN Reason: INDIGESTION Albuterol (Ventolin 2.5 Mg/3 Ml Neb.Smita*) 2.5 mg INH Q4H PRN PRN Reason: SOB/WHEEZING Albuterol (Ventolin Hfa Inhaler*) 2 puff INH Q6H PRN PRN Reason: SOB/WHEEZING Last Admin: 04/06/18 06:27 Dose: 2 puff Aripiprazole (Abilify Tab*) 5 mg PO DAILY [facility] Last Admin: 04/12/18 10:16 Dose: 5 mg Atorvastatin Calcium (Lipitor*) 80 mg PO QPM [facility] Last Admin: 04/11/18 21:34 Dose: 80 mg Calcium Carbonate (Tums*) 1,500 mg PO DAILY PRN PRN Reason: GERD Cetirizine HCl (Zyrtec*) 10 mg PO QAM [facility] Last Admin: 04/12/18 10:16 Dose: 10 mg Dapsone (Dapsone Tab*) 75 mg PO DAILY [facility] Last Admin: 04/12/18 10:13 Dose: 75 mg Device (Nicotine Mouth Piece*) 1 each INH .[place]TRIDGE [facility] Diclofenac Sodium (Voltaren Ec Tab*) 50 mg PO TID PRN PRN Reason: PAIN Dicyclomine HCl (Bentyl Cap*) 10 mg PO BID [facility] Last Admin: 04/12/18 10:15 Dose: 10 mg Diphenhydramine HCl (Benadryl Po*) 25 mg PO DAILY PRN PRN Reason: ALLERGY SYMPTOMS Last Admin: 04/06/18 06:20 Dose: 25 mg Epinephrine HCl (Epipen Adult(Nf)) 0.3 mg IM ONCE PRN PRN Reason: ALLERGY SYMPTOMS Ferrous Sulfate (Ferrous Sulfate Tab*) 325 mg PO DAILY [facility] Last Admin: 04/12/18 10:17 Dose: 325 mg Gabapentin (Neurontin Cap(*)) 600 mg PO BID [facility] Last Admin: 04/12/18 10:11 Dose: 600 mg Ibuprofen (Motrin Tab*) 600 mg PO Q8H PRN PRN Reason: PAIN Last Admin: 04/11/18 07:45 Dose: 600 mg Insulin Glargine (Lantus(*)) 48 units SUBCUT BID@0900,2100 [facility] Last Admin: 04/12/18 10:09 Dose: 48 units Insulin Human Lispro (Humalog*) 0 units SUBCUT [facility]; Protocol Last Admin: 04/12/18 12:07 Dose: 6 unit Loperamide HCl (Imodium Cap*) 2 mg PO BID PRN PRN Reason: DIARRHEA Last Admin: 04/06/18 15:43 Dose: 2 mg Lorazepam (Ativan Tab(*)) 0.5 mg PO Q6H PRN PRN Reason: ANXIETY Last Admin: 04/12/18 05:52 Dose: 0.5 mg Magnesium Oxide (Magox 400 Tab*) 400 mg PO DAILY [facility] Last Admin: 04/12/18 10:16 Dose: 400 mg Melatonin (Melatonin) 9 mg PO BEDTIME [facility] Last Admin: 04/11/18 21:31 Dose: 9 mg Metoprolol Tartrate (Lopressor Tab*) 50 mg PO BID [facility] Last Admin: 04/12/18 10:16 Dose: 50 mg Mometasone Furoate/Formoterol Fumar (Dulera 200/5 Mdi*) 2 puff INH BID [facility] Last Admin: 04/12/18 10:18 Dose: Not Given Multivitamins (Theragran Tab*) 1 tab PO DAILY [facility] Last Admin: 04/12/18 10:16 Dose: 1 tab Mycophenolate Mofetil (Cellcept Tab(*)) 1,500 mg PO BID [facility] Last Admin: 04/12/18 10:11 Dose: 1,500 mg Naproxen (Naprosyn Tab*) 500 mg PO BID PRN PRN Reason: PAIN Last Admin: 04/08/18 20:26 Dose: 500 mg Nicotine (Nicotine Inhaler*) 10 mg INH Q2H PRN PRN Reason: CRAVING Nicotine Polacrilex (Nicotine Gum*) 2 mg PO Q2H PRN PRN Reason: CRAVING Omeprazole (Prilosec Cap*) 20 mg PO QAM@0730 [facility] Last Admin: 04/12/18 10:17 Dose: 20 mg Ondansetron HCl (Zofran Tab*) 4 mg PO Q6H PRN PRN Reason: NAUSEA Last Admin: 04/07/18 11:23 Dose: 4 mg Phenyleph/Shark Oil/Min Oil/Petrol (Preparation H*) 1 applic TOPICAL TID PRN PRN Reason: DIRECTED Polyethyl Glycol/Propylene Glycol (Lubricant Eye Drops) 1 drop BOTH EYES Q2H PRN PRN Reason: DRY EYE Prazosin HCl (Minipress Cap*) 2 mg PO DAILY [facility] Last Admin: 04/12/18 10:11 Dose: 2 mg Prazosin HCl (Minipress Cap*) 5 mg PO BEDTIME [facility] Last Admin: 04/11/18 21:30 Dose: 5 mg Prazosin HCl (Minipress Cap*) 3 mg PO BEDTIME [facility] Last Admin: 04/11/18 21:31 Dose: 3 mg Sitagliptin Phosphate (Januvia (Nf)) 50 mg PO QAM [facility] Last Admin: 04/12/18 10:11 Dose: 50 mg Sodium Chloride (Sodium Chloride 0.65% Nasal [place]*) 1 spray BOTH NARES Q4H PRN PRN Reason: nasal complaint Last Admin: 04/12/18 02:19 Dose: 1 spray Spironolactone (Aldactone Tab*) 50 mg PO QAM [facility] Last Admin: 04/12/18 10:10 Dose: 50 mg Topiramate (Topamax(*)) 75 mg PO BID [facility] Last Admin: 04/12/18 10:12 Dose: 75 mg Vilazodone HCl (Viibryd (Nf)) 20 mg PO BID [facility] Last Admin: 04/12/18 10:18 Dose: 20 mg - Discharge Plan Additional Comments: Jayy will engage in therapeutic and art work during her stay. We will not alter her medications, at this point, with the exception of a 3 mg increase in melatonin, as she is already on a complicated regimen and medication changes do not seem to be indicated for the problems she is presenting. For discharge, the only change that will be made is to increase the melatonin to 10 mg. Jayy is assigned to use [employer] 15-30 minutes each day.
[2018-04-12] MEDS: Atorvastatin* 80 MG TAB PO SCH (21:13)
[2018-04-12] MEDS: Melatonin 3 MG TAB PO SCH (21:14)
[2018-04-12] MEDS: Prazosin CAP* 5 MG PO SCH (21:16)
[2018-04-13] MEDS: Saline NASAL SPRAY 0.65%* BTL BOTH NARES PRN ×2 (00:50→09:14)
[2018-04-13] MEDS: Loperamide CAP* 2 MG PO PRN (00:50)
[2018-04-13] MEDS: Acetaminop/Codeine 30 MG TAB* 1 TAB (300 MG/30 MG) PO PRN (06:15)
[2018-04-13 08:22] VITALS: BP 133/69
[2018-04-13] MEDS: Insulin GLARGINE(*) 1 UNITS UNIT SUBCUT SCH (09:00)
[2018-04-13] MEDS: Insulin LISPRO* 1 UNITS UNIT SUBCUT SCH ×2 (09:00→11:33)
[2018-04-13] MEDS: CMCS:Vilazodone (NF) 40 MG TAB PO SCH (09:01)
[2018-04-13] MEDS: Omeprazole CAP* 20 MG PO SCH (09:01)
[2018-04-13] MEDS: CMCS:Sitagliptin (NF) 50 MG TAB PO SCH (09:01)
[2018-04-13] MEDS: Dapsone TAB* 100 MG PO SCH (09:02)
[2018-04-13] MEDS: Gabapentin CAP(*) 300 MG PO SCH (09:04)
[2018-04-13] MEDS: Metoprolol Tartrate TAB* 50 mg PO SCH (09:06)
[2018-04-13] MEDS: Mycophenolate Mofetil TAB(*) 500 MG PO SCH (09:07)
[2018-04-13] MEDS: Topiramate TAB(*) 25 MG PO SCH (09:08)
[2018-04-13] MEDS: Spironolactone TAB* 25 MG PO SCH (09:10)
[2018-04-13] MEDS: Cetirizine* 10 MG TAB PO SCH (09:11)
[2018-04-13] MEDS: Vitamin THERAPEUTIC TAB PO SCH (09:11)
[2018-04-13] MEDS: ARIPiprazole TAB* 5 MG PO SCH (09:11)
[2018-04-13] MEDS: Magnesium Oxide TAB* 400 MG PO SCH (09:12)
[2018-04-13] MEDS: Ferrous Sulfate TAB* 325 MG PO SCH (09:12)
[2018-04-13] MEDS: Prazosin CAP* 1 MG PO SCH (09:13)
[2018-04-13] MEDS: Butalb/Acetamin/Caff TAB* 1 TAB PO PRN (09:17)
[2018-04-13] MEDS: Mometasone/Formoter 200/5 MDI INH SCH (09:23)
--- NOTE | 2018-04-14 19:48 | DS ---
CC: [facility]; primary care provider DISCHARGE SUMMARY: DATE OF ADMISSION: 04/05/18 DATE OF DISCHARGE: 04/13/18 PROVIDER: Ninfa Morley NP, in Psychiatry. SUPERVISING PHYSICIAN: Dr. Stoney Sykes. DIAGNOSES: [place] I: Posttraumatic stress disorder. [place] II: Borderline personality disorder. CONDITION AT THE TIME OF DISCHARGE: Improved, psychiatrically cleared, stable, participated in group s, social with select peers. She has done reasonably well here psychiatrically. There were no new m edications added. She will return to [facility]. MENTAL STATUS EXAM AT THE TIME OF DISCHARGE: Evelyn is calm, cooperative, and makes good eye contac t. She is alert and oriented x3. Her grooming is adequate. Her speech pace is normal. Her thought processes are logical. She is not psychotic, not delusional. She denies AH, VH, SI, and HI. Her in sight is fair. Her judgment is fair. She states she is willing to follow up and she is urge to see h er therapist. DISCHARGE INSTRUCTIONS TO THE PATIENT: A. Medications: 1. Fioricet 1 tab q.8 hours p.r.n. headache. 2. Tylenol 3 one tab p.o. b.i.d. p.r.n. pain greater than 4/10. 3. Albuterol 2.5 mg inhaled q.4 hours p.r.n. SOB, wheezing. 4. Albuterol inhaler 2 puffs q.6 hours p.r.n. SOB and wheezing. 5. Abilify 5 mg daily. 6. Lipitor 80 mg at bedtime. 7. Calcium 1500 mg p.o. daily p.r.n. GERD. 8. Zyrtec 10 mg q.a.m. 9. Dapsone 75 mg daily. 10. Diclofenac 50 mg t.i.d. pain p.r.n. 11. Bentyl 10 mg b.i.d. 12. Benadryl 25 mg p.r.n. allergy symptoms. 13. EpiPen 0.3 mg IM once p.r.n. allergy symptoms. 14. Ferrous sulfate 325 mg daily. 15. Gabapentin 600 mg b.i.d. 16. Ibuprofen 600 mg q.8 hours p.r.n. pain. 17. Lantus 48 units subcutaneously b.i.d. at 9 a.m. and 9 p.m. 18. Insulin lispro sliding scale. 19. Imodium 2 mg b.i.d. p.r.n. diarrhea. 20. Ativan 0.5 mg q.6 hours p.r.n. anxiety. 21. Magnesium oxide 400 mg p.o. daily. 22. Melatonin 9 mg p.o. daily. 23. Lopressor 50 mg b.i.d. 24. Dulera 200/5 MDI 2 puffs inhaled b.i.d. 25. CellCept 1500 mg b.i.d. 26. Naprosyn 500 mg b.i.d. p.r.n. pain. 27. Prilosec 20 mg p.o. daily 7:30 a.m. 28. Ondansetron 4 mg q. 6 hours p.r.n. nausea. 29. Preparation H 1 application topical t.i.d. p.r.n. as directed. 30. Propylene glycol/polyethylene glycol 1 drop both eyes q.2 hours p.r.n. dry eye. 31. Minipress 2 mg daily. 32. Minipress 8 mg at bedtime. 33. Januvia 50 mg q.a.m. 34. Sodium chloride nasal spray 1 spray both nares q.4 hours p.r.n. nasal complaint. 35. Aldactone 40 mg q.a.m. 36. Topamax 75 mg b.i.d. 37. Viibryd 20 mg b.i.d. B. Diet: Should be diabetic. C. Activities: As tolerated. Evelyn has declined referral to the [facility] Smokers Quitline. If she decides to access the service in the future, she can contact the Quitline at [phone]. There are no studies pending at the time of discharge. D. Followup care: She has appointments with mental health and she is encouraged to make an appointm ent with her primary care provider. E. Substance abuse. Follow up is not indicated at this time. HOSPITAL COURSE: Part A. Chief complaint: "My head is in a dark place, I don't understand." The pa kaitlynn is a 37-year-old single physically and mentally disabled woman with a history of borderline per sonality disorder and major depressive disorder who comes in brought by her living place, which is [facility]. She is here on the voluntary status and she comes after voices have b ecome commanding her to kill herself. Evelyn states the voices are commanding her to harm herself d oing things such as jumping in the traffic or taking an overdose. She states she will go to pharmacy and buy whatever [id number] medications she can and take all of them. She states this is part ially precipitated by her sister telling her with a smile that her kidneys are failing. Apparently, Evelyn's grandmother 15 years ago on dialysis. Her sister is diabetic and her sister is 32 and has already had a toe amputated. This series of events has Evelyn worried and angry. She states "I just hate ." She states she was scared to leave the house because of what she might do to hers elf. She states this is the first time she has ever been afraid to leave the house. Her stressors i nclude her many medical problems. She is tired. She is not sleeping as well as she would like. She is not interested in anything. She feels angry all the time and distressed. Her energy is low and she is having suicidal ideation. Part B: Psychiatric treatment was rendered: Evelyn was admitted to the Adult [facility] and p laced on 15-minute checks for safety. Evelyn was safe on the unit and went to many groups. She int eracted well with select peers. There were no medication changes with the exception of switching fro m Rexulti to Abilify as it is not on her formulary. Her H A1c is around 9. Her triglycerides are 19 2, cholesterol 179, LDL cholesterol 111, HDL cholesterol 29.5. Incidentally, her TSH is 0.6. 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 There was a nutrition consult entered. Evelyn did a lot of homewor k on the unit, it does not appear that she applied the lessons that she learned. She requested work sheets rather than projects and she works through those very quickly. It is unclear to me whether th e application of those skills is within Evelyn's capacity at this time. She reports relative safety . She would like to stay longer. She encouraged us to keep her until Wednesday. We did compromise fro m Wednesday to Wednesday. On her evening that she exceeded my recommendation, she was intellect tracyy disabled the young woman and stated it is in her interest to defend herself from people who nakia e negative comments. Despite conversation regarding the inappropriateness of her behavior, she maint ained that it is her business to interfere on behalf of others in order to protect them and herself. Evelyn has not made many gains during this admission and it may not be in her interest to come to [facility] longer. In the meantime, she is safer than when she was admitted and she asserts herbert t she has had a good visit this time. Her suicidality is reduced and she appears to be able to shai ntrate on herself better. NINFA MORLEY, GEM [id number]/CPS #: [id number]
== END 2018-04-13 12:36 | disposition home or self-care (01) | DRG 755 ==
LOC: ED 12:51 → BSU 20:15
PROVIDERS: ADMIT Psychiatry & Neurology Psychiatry; ATTEND Psychiatry & Neurology Psychiatry
DX: F43.12 Post-traumatic stress disorder, chronic (principal); R45.851 Suicidal ideations; K50.90 Crohn's disease, unspecified, without complications; Z68.43 Body mass index [BMI] 50.0-59.9, adult; E10.43 Type 1 diabetes mellitus with diabetic autonomic (poly)neuropathy; K31.84 Gastroparesis; E78.00 Pure hypercholesterolemia, unspecified; I77.6 Arteritis, unspecified; F60.3 Borderline personality disorder; J45.909 Unspecified asthma, uncomplicated; F17.210 Nicotine dependence, cigarettes, uncomplicated; K21.9 Gastro-esophageal reflux disease without esophagitis; G43.909 Migraine, unspecified, not intractable, without status migrainosus; E66.01 Morbid (severe) obesity due to excess calories; Z81.1 Family history of alcohol abuse and dependence; Z81.8 Family history of other mental and behavioral disorders; Z91.030 Bee allergy status; Z88.2 Allergy status to sulfonamides; Z88.8 Allergy status to other drugs, medicaments and biological substances; Z91.048 Other nonmedicinal substance allergy status; Z79.1 Long term (current) use of non-steroidal anti-inflammatories (NSAID); Z79.4 Long term (current) use of insulin; Z79.891 Long term (current) use of opiate analgesic; Z79.899 Other long term (current) drug therapy
CPT/HCPCS: 36415; 80053; 80061; 80307; 80320; 80329; 81003; 83036; 84443; 85025; 90853; 99222; 99231; 99233; 99284; A9270-GY; G0480

== ENCOUNTER 2018-04-17 15:53 | Emergency (ER) | payer OTHER ==
[2018-04-17] MEDS ORDERED: Ondansetron ODT TAB* 4 MG SL ONE ×2 (17:54→19:25)
[2018-04-17] MEDS ORDERED: Acetaminophen TAB* 325 MG PO ONE (17:55)
[2018-04-17 18:16] LABS: ABS Basophils 0.1 10^3/ul (0-0.2); ABS Eosinophils 0.2 10^3/ul (0-0.6); ABS Lymphocytes 3.3 10^3/ul (1.0-4.8); ABS Neutrophils 11.5 10^3/ul (1.5-7.7); ABS Nucleated RBC 0 10^3/ul; Eosinophil % 1.1 % (0-6); Hematocrit 34 % (35-47); Hemoglobin 11.4 g/dl (12.0-16.0); Lymphocyte % 20.6 % (25-47); Mean Corpuscular HGB Conc 34 g/dl (31-36); Mean Corpuscular Hemoglobin 29 pg (27-31); Mean Corpuscular Volume 86 fL (80-97); Mean Platelet Volume 6.2 um3 (7.4-10.4); Nucleated Red Blood Cells % 0; Platelet Count 399 10^3/ul (150-450); Red Blood Count 3.93 10^6/ul (4.00-5.40); Red Cell Distribution Width 13 % (10.5-15)
[2018-04-17 18:36] LABS: EGFR Non-African American 150.8 (>60)
[2018-04-17 19:49] VITALS: BP 131/87
--- NOTE | 2018-04-17 22:25 | ED ---
Abdominal Pain/Female - HPI Summary HPI Summary: Patient is a 37-year-old female with a complicated medical history including diabetes and vasculitis presenting to the ED with umbilical pain over the past 2 -3 days. Pain is very diffuse, however worsening pain over the umbilical area. She endorses nausea and vomiting. Denies any diarrhea or constipation. Last bowel movement this morning. She continues to eat and drink, however then has emesis shortly afterwards. She states she has had this before and has been treated with nausea medication appropriately. She said several CT scans as well as ultrasounds and x-rays in the past. I've discussed with the patient obtaining a CT and we have both agreed to defer at this time and try a course of antiemetics. Patient states she has been having a fever, but states her fever never rises above the 99.5, however states this is a fever for her as she runs in the 96 and 97 range. She denies any sweats or chills. She denies any urinary symptoms. - History of Current Complaint Chief Complaint: Liz Stated Complaint: NAUSEA/VOMITING Time Seen by Provider: 04/17/18 17:30 Hx Obtained From: Patient Hx Last Menstrual Period: nexplanon ?: No Onset/Duration: Sudden Onset Timing: Constant Severity Initially: Mild Severity Currently: Mild Pain Intensity: 3 Pain Scale Used: 0-10 Numeric Location: Diffuse, Umbilical Radiates: No Aggravating Factor(s): Nothing Alleviating Factor(s): Nothing Associated Signs and Symptoms: Positive: Nausea, Vomiting. Negative: Blood in Stool, Urinary Symptoms, Decreased Appetite - Risk Factors Ectopic Risk Factor: Negative Ovarian Torsion Risk Factor: Negative Allergies/Adverse Reactions: Allergies Allergy/AdvReac Type Severity Reaction Status Date / Time Adhesive Tape Allergy Rash Verified 04/17/18 17:15 asenapine Allergy Rash Verified 04/17/18 17:15 bee venom protein (honey bee) Allergy Anaphylatic Verified 04/17/18 17:15 Shock lurasidone [From Latuda] Allergy Hives Verified 04/17/18 17:15 metoclopramide [From Reglan] Allergy Abdominal Verified 04/17/18 17:15 Pain paclitaxel [From Taxol] Allergy Hives Verified 04/17/18 17:15 Sulfa (Sulfonamide Allergy Unknown Verified 04/17/18 17:15 Antibiotics) Reaction Details sulfamethoxazole Allergy Hives Verified 04/17/18 17:15 [From Bactrim] trimethoprim [From Bactrim] Allergy Hives Verified 04/17/18 17:15 nalbuphine [From Nubain] AdvReac Rash Verified 04/17/18 17:15 paroxetine [From Paxil] AdvReac Vomiting Verified 04/17/18 17:15 tramadol AdvReac Rash Verified 04/17/18 17:15 "metal" Allergy Swelling Uncoded 02/08/18 16:01 zepeda Allergy Nausea And Uncoded 02/08/18 16:01 Vomiting PMH/Surg Hx/FS Hx/Imm Hx Previously Healthy: Yes Endocrine/Hematology History: Reports: Hx Diabetes - type 2 dm on insulin, Hx Anemia Denies: Other Endocrine/Hematological Disorders Cardiovascular History: Reports: Hx Angina, Hx Hypercholesterolemia, Other Cardiovascular Problems/Disorders - vasculitis. tachycardia Denies: Hx Coronary Artery Disease, Hx Hypertension - ON BP MEDS FOR TACHY, Hx Myocardial Infarction, Hx Pacemaker/ICD, Hx Peripheral Vascular Disease, Hx Valvular Heart Disease Respiratory History: Reports: Hx Asthma, Hx Sleep Apnea Denies: Hx Chronic Obstructive Pulmonary Disease (COPD), Other Respiratory Problems/Disorders GI History: Reports: Hx Crohn's Disease, Hx Gastroesophageal Reflux Disease, Hx Irritable Bowel, Other GI Disorders - gastroparesis History: Denies: Hx Dialysis, Hx Renal Disease, Other Problems/Disorders Musculoskeletal History: Reports: Hx Arthritis - back and knees, Other Musculoskeletal History - Ulnar nerve compression Right arm Denies: Hx Osteoporosis Sensory History: Reports: Hx Contacts or Glasses - glasses Denies: Hx Legally Blind, Hx Deafness, Hx Hearing Aid Opthamlomology History: Reports: Hx Contacts or Glasses - glasses Denies: Hx Legally Blind Neurological History: Reports: Hx Headaches, Hx Migraine Denies: Hx Seizures, Hx Transient Ischemic Attacks (TIA), Other Neuro Impairments/Disorders Psychiatric History: Reports: Hx Anxiety, Hx Depression, Hx Panic Disorder - PTSD, Hx Post Traumatic Stress Disorder, Hx Inpatient Treatment, Hx Community Mental Health Tx, Hx Suicide Attempt, Other Psychiatric Issues/Disorders - Borderline Personality Disorder Denies: Hx Attention Deficit Hyperactivity Disorder, Hx Eating Disorder, Hx Schizophrenia, Hx Bipolar Disorder, Hx of Violent Episodes Against Others - Surgical History Surgery Procedure, Year, and Place: Cholecystectomy [facility] in [place]. Cardiac Catherterization-NO STENT [facility] 2005, 2017 [facility],. ulnar nerve release 2017, [facility] Hx Anesthesia Reactions: No - Immunization History Date of Tetanus Vaccine: utd Date of Influenza Vaccine: fall 2016 Hx Pertussis Vaccination: No Immunizations Up to Date: Unable to Obtain/Confirm Infectious Disease History: No Infectious Disease History: Reports: Hx of Known/Suspected MRSA - treated. noncarrier now Denies: Traveled Outside the [place] in Last 30 Days - Family History Known Family History: Positive: Cardiac Disease, Diabetes, Other - blood clots ( mother), pacemaker (father) Negative: Hypertension - Social History Occupation: Unemployed Lives: Alone Alcohol Use: None Hx Substance Use: Yes Substance Use Type: Reports: Marijuana Substance Use Comment - Amount & Last Used: marijuana 04/04/18 Hx Tobacco Use: Yes Smoking Status (MU): Current Every Day Smoker Type: Cigarettes Amount Used/How Often: 5 cigarettes/day Have You Smoked in the Last Year: Yes - 04/05/18 Review of Systems Constitutional: Negative Negative: Fever, Chills, Fatigue, Skin Diaphoresis Negative: Palpitations, Chest Pain Negative: Shortness Of Breath, Cough Positive: Abdominal Pain, Vomiting, Nausea. Negative: Diarrhea Genitourinary: Negative Positive: no symptoms reported, see HPI Skin: Negative All Other Systems Reviewed And Are Negative: Yes Physical Exam Triage Information Reviewed: Yes Vital Signs On Initial Exam: Initial Vitals Temp Pulse Resp BP Pulse Ox 97.8 F 93 17 127/79 99 04/17/18 16:03 04/17/18 16:03 04/17/18 16:03 04/17/18 16:03 04/17/18 16:03 Vital Signs Reviewed: Yes Appearance: Positive: Well-Appearing, Well-Nourished Skin: Positive: Skin Color Reflects Adequate Perfusion Head/Face: Positive: Normal Head/Face Inspection Eyes: Positive: EOMI, RICO, Conjunctiva Clear Neck: Positive: Nontender, No Lymphadenopathy Respiratory/Lung Sounds: Positive: Clear to Auscultation, Breath Sounds Present Cardiovascular: Positive: RRR, Pulses are Symmetrical in both Upper and Lower Extremities Abdomen Description: Positive: Other: - no tenderness on palpation Musculoskeletal: Positive: Strength/ROM Intact Neurological: Positive: Alert, Oriented to Person Place, Time, Speech Normal Diagnostics - Vital Signs Vital Signs Temp Pulse Resp BP Pulse Ox 04/17/18 19:58 98 F 88 18 131/87 96 04/17/18 19:41 89 131/87 97 04/17/18 17:06 93 101/74 94 04/17/18 17:00 88 94 04/17/18 16:36 91 113/81 98 04/17/18 16:07 96 127/79 98 04/17/18 16:06 93 99 04/17/18 16:03 97.8 F 93 17 127/79 99 - Laboratory Lab Results: Lab Results 04/17/18 04/17/18 04/17/18 Range/Units 18:07 18:07 18:07 WBC 16.0 H (3.5-10.8) 10^3/ul RBC 3.93 L (4.00-5.40) 10^6/ul Hgb 11.4 L (12.0-16.0) g/dl Hct 34 L (35-47) % MCV 86 (80-97) fL MCH 29 (27-31) pg MCHC 34 (31-36) g/dl RDW 13 (10.5-15) % Plt Count 399 (150-450) 10^3/ul MPV 6.2 L (7.4-10.4) um3 Neut % (Auto) 71.7 (38-83) % Lymph % (Auto) 20.6 L (25-47) % [place] % (Auto) 6.1 (0-7) % Eos % (Auto) 1.1 (0-6) % Baso % (Auto) 0.5 (0-2) % Absolute Neuts (auto) 11.5 H (1.5-7.7) 10^3/ul Absolute Lymphs (auto) 3.3 (1.0-4.8) 10^3/ul Absolute Monos (auto) 1.0 H (0-0.8) 10^3/ul Absolute Eos (auto) 0.2 (0-0.6) 10^3/ul Absolute Basos (auto) 0.1 (0-0.2) 10^3/ul Absolute Nucleated RBC 0 10^3/ul Nucleated RBC % 0 Sodium 135 (135-145) mmol/L Potassium 3.7 (3.5-5.0) mmol/L Chloride 106 (101-111) mmol/L Carbon Dioxide 21 L (22-32) mmol/L Anion Gap 8 (2-11) mmol/L BUN 6 (6-24) mg/dL Creatinine 0.47 L (0.51-0.95) mg/dL Est GFR ( Amer) 182.5 (>60) Est GFR (Non-Af Amer) 150.8 (>60) BUN/Creatinine Ratio 12.8 (8-20) Glucose 245 H (70-100) mg/dL Lactic Acid 1.2 (0.5-2.0) mmol/L Calcium 8.9 (8.6-10.3) mg/dL Magnesium 1.5 L (1.9-2.7) mg/dL Total Bilirubin 0.40 (0.2-1.0) mg/dL AST 9 L (13-39) U/L ALT 10 (7-52) U/L Alkaline Phosphatase 105 H (34-104) U/L C-Reactive Protein 32.92 H (<8.01) mg/L Total Protein 6.9 (6.4-8.9) g/dL Albumin 3.4 (3.2-5.2) g/dL Globulin 3.5 (2-4) g/dL Albumin/Globulin Ratio 1.0 (1-3) Amylase 19 L (29-103) U/L Lipase < 10 L (11.0-82.0) U/L Beta HCG, Quant < 0.60 mIU/mL Result Diagrams: 04/17/18 18:07 04/17/18 18:07 Lab Statement: Any lab studies that have been ordered have been reviewed, and results considered in the medical decision making process. Abdominal Pain Fem Course/Dx - Course Course Of Treatment: Patient is evaluated for diffuse abdominal pain with nausea and vomiting over the past 2 days. Labs obtained are all within normal limits per patient. Elevated white blood count, however this is normal for patient likely secondary to her immunosuppression medications. Patient is given nausea medication with good relief. I will discharge her home with this medication she will return for any worsening or changing symptoms. We will defer any imaging at this time. - Diagnoses Provider Diagnoses: Nausea & vomiting Discharge - Sign-Out/Discharge Documenting (check all that apply): Patient Departure - Discharge Plan Condition: Stable Disposition: HOME Prescriptions: Ondansetron ODT TAB* [Zofran 4 MG Odt TAB*] 4 mg PO Q6H PRN #12 tab.odt MDD 4 PRN Reason: Nausea Patient Education Materials: Acute Nausea and Vomiting (ED) Referrals: Kimberlyn Dhillon MD [Primary Care Provider] - Additional Instructions: Zofran as needed for nausea If symptoms worsen, return to the ED - Billing Disposition and Condition Condition: STABLE Disposition: Home
== END 2018-04-17 19:58 | disposition home or self-care (01) ==
LOC: ED 15:53
DX: R11.2 Nausea with vomiting, unspecified (principal); R10.33 Periumbilical pain; E11.9 Type 2 diabetes mellitus without complications; Z79.4 Long term (current) use of insulin; I10 Essential (primary) hypertension; Z91.030 Bee allergy status; Z88.5 Allergy status to narcotic agent; Z88.2 Allergy status to sulfonamides; Z88.8 Allergy status to other drugs, medicaments and biological substances; Z91.048 Other nonmedicinal substance allergy status; Z82.49 Family history of ischemic heart disease and other diseases of the circulatory system; Z83.3 Family history of diabetes mellitus; Z83.2 Family history of diseases of the blood and blood-forming organs and certain disorders involving the immune mechanism; F17.210 Nicotine dependence, cigarettes, uncomplicated
CPT/HCPCS: 36415; 80053; 82150; 83605; 83690; 83735; 84702; 85025; 86140; 99282; A9270-GY

== ENCOUNTER 2018-04-19 14:10 | Emergency (ER) | payer OTHER ==
[2018-04-19] MEDS ORDERED: Metoclopramide IV* 5 MG/ML 2 ML VIAL IV ONE (14:19)
[2018-04-19] MEDS ORDERED: diPHENhydraMINE IV* 50 MG/ML 1 ml VIAL (BENADRYL) IV ONE (14:19)
[2018-04-19] MEDS ORDERED: NS 0.9% 1000 ML* 1,000 ML IV ONE (14:19)
[2018-04-19] MEDS ORDERED: Morphine INJ** 4 MG/ML 1 ML CARPUJECT IV ONE (14:20)
[2018-04-19] MEDS ORDERED: Morphine INJ* 2 MG/ML 1 ML SYRINGE (TWO MG - NEW SYRINGE VERSION) ONE (14:31)
[2018-04-19 14:50] LABS: ABS Basophils 0.1 10^3/ul (0-0.2); ABS Eosinophils 0.1 10^3/ul (0-0.6); ABS Lymphocytes 3.4 10^3/ul (1.0-4.8); ABS Monocytes 1.3 10^3/ul (0-0.8); ABS Neutrophils 12.9 10^3/ul (1.5-7.7); ABS Nucleated RBC 0 10^3/ul; Eosinophil % 0.7 % (0-6); Hematocrit 34 % (35-47); Hemoglobin 11.8 g/dl (12.0-16.0); Mean Corpuscular HGB Conc 35 g/dl (31-36); Mean Corpuscular Hemoglobin 30 pg (27-31); Mean Corpuscular Volume 85 fL (80-97); Mean Platelet Volume 6.5 um3 (7.4-10.4); Nucleated Red Blood Cells % 0; Platelet Count 440 10^3/ul (150-450); Red Blood Count 4.02 10^6/ul (4.00-5.40); Red Cell Distribution Width 13 % (10.5-15); White Blood Count 17.8 10^3/ul (3.5-10.8)
[2018-04-19 14:51] LABS: EGFR Non-African American 120.7 (>60)
--- NOTE | 2018-04-19 15:18 | ED ---
Headache - HPI Summary HPI Summary: Patient is a 37 y/o F BIBA w/ c/o right sided LEGER onsetting six days ago. LEGER is reported to be intermittent but has been recently been stronger and lasting longer. Patient reports feeling near syncopal and experiencing blurred vision as well. She notes Hx of migraines but reports typical migraines do not involve feeling near syncopal and blurred vision. Patient also reports migraine LEGER are typically throbbing as opposed to present LEGER which are sharp and intermittent. She also reports some nausea and vomiting. She is nauseous and experiencing some LEGER pain in the room presently. On triage, pain is rated 5/10 and nothing is noted to aggravate/alleviate Sx. She states she has been taking topamax and imitrex with no relief. She notes she takes multiple other medications. PMHx of diabetes and vasculitis. No FMHx of aneurysms. Patient smokes. Her neurologist is Dr. Rosa. - History Of Current Complaint Chief Complaint: EDHeadache Stated Complaint: HEADACHE Time Seen by Provider: 04/19/18 14:13 Hx Obtained From: Patient Hx Last Menstrual Period: nexplanon Onset/Duration: Started days ago, Still Present Currently Pain Is: Current Pain Scale(0-10)= - 5/10 Timing: Intermittent, Lasting: Character: Sharp Location of Headache: Other: - right sided LEGER Aggravating Factor: Nothing Allevating Factors: Nothing Associated Signs And Symptoms: Nausea, Vomiting, Other (Noted In Comments) - blurred vision, near syncopal - Allergies/Home Medications Allergies/Adverse Reactions: Allergies Allergy/AdvReac Type Severity Reaction Status Date / Time Adhesive Tape Allergy Rash Verified 04/19/18 14:30 asenapine Allergy Rash Verified 04/19/18 14:30 bee venom protein (honey bee) Allergy Anaphylatic Verified 04/19/18 14:30 Shock lurasidone [From Latuda] Allergy Hives Verified 04/19/18 14:30 metoclopramide [From Reglan] Allergy Abdominal Verified 04/19/18 14:30 Pain paclitaxel [From Taxol] Allergy Hives Verified 04/19/18 14:30 Sulfa (Sulfonamide Allergy Unknown Verified 04/19/18 14:30 Antibiotics) Reaction Details sulfamethoxazole Allergy Hives Verified 04/19/18 14:30 [From Bactrim] trimethoprim [From Bactrim] Allergy Hives Verified 04/19/18 14:30 nalbuphine [From Nubain] AdvReac Rash Verified 04/19/18 14:30 paroxetine [From Paxil] AdvReac Vomiting Verified 04/19/18 14:30 tramadol AdvReac Rash Verified 04/19/18 14:30 "metal" Allergy Swelling Uncoded 04/19/18 14:30 zepeda Allergy Nausea And Uncoded 04/19/18 14:30 Vomiting PMH/Surg Hx/FS Hx/Imm Hx Endocrine/Hematology History: Reports: Hx Diabetes - type 2 dm on insulin, Hx Anemia Denies: Other Endocrine/Hematological Disorders Cardiovascular History: Reports: Hx Angina, Hx Hypercholesterolemia, Other Cardiovascular Problems/Disorders - vasculitis. tachycardia Denies: Hx Coronary Artery Disease, Hx Hypertension - ON BP MEDS FOR TACHY, Hx Myocardial Infarction, Hx Pacemaker/ICD, Hx Peripheral Vascular Disease, Hx Valvular Heart Disease Respiratory History: Reports: Hx Asthma, Hx Sleep Apnea Denies: Hx Chronic Obstructive Pulmonary Disease (COPD), Other Respiratory Problems/Disorders GI History: Reports: Hx Crohn's Disease, Hx Gastroesophageal Reflux Disease, Hx Irritable Bowel, Other GI Disorders - gastroparesis History: Denies: Hx Dialysis, Hx Renal Disease, Other Problems/Disorders Musculoskeletal History: Reports: Hx Arthritis - back and knees, Other Musculoskeletal History - Ulnar nerve compression Right arm Denies: Hx Osteoporosis Sensory History: Reports: Hx Contacts or Glasses - glasses Denies: Hx Legally Blind, Hx Deafness, Hx Hearing Aid Opthamlomology History: Reports: Hx Contacts or Glasses - glasses Denies: Hx Legally Blind Neurological History: Reports: Hx Headaches, Hx Migraine Denies: Hx Seizures, Hx Transient Ischemic Attacks (TIA), Other Neuro Impairments/Disorders Psychiatric History: Reports: Hx Anxiety, Hx Depression, Hx Panic Disorder - PTSD, Hx Post Traumatic Stress Disorder, Hx Inpatient Treatment, Hx Community Mental Health Tx, Hx Suicide Attempt, Other Psychiatric Issues/Disorders - Borderline Personality Disorder Denies: Hx Attention Deficit Hyperactivity Disorder, Hx Eating Disorder, Hx Schizophrenia, Hx Bipolar Disorder, Hx of Violent Episodes Against Others - Surgical History Surgery Procedure, Year, and Place: Cholecystectomy [facility], [place]. Cardiac Catherterization-NO STENT [facility] 2005, 2017 [facility] [place],. ulnar nerve release 2018, [facility] Hx Anesthesia Reactions: No - Immunization History Date of Tetanus Vaccine: utd Date of Influenza Vaccine: fall 2016 Infectious Disease History: No Infectious Disease History: Reports: Hx of Known/Suspected MRSA - treated. noncarrier now Denies: Traveled Outside the [place] in Last 30 Days - Family History Known Family History: Positive: Cardiac Disease, Diabetes, Other - blood clots ( mother), pacemaker (father) Negative: Hypertension - Social History Alcohol Use: None Hx Substance Use: Yes Substance Use Type: Reports: Marijuana Substance Use Comment - Amount & Last Used: USED FOR PAIN MANAGMENT. Hx Tobacco Use: Yes Smoking Status (MU): Light Every Day Tobacco Smoker Type: Cigarettes Amount Used/How Often: 5 cigarettes/day Have You Smoked in the Last Year: Yes - 04/05/18 Review of Systems Positive: Blurred Vision Positive: Vomiting, Nausea Neurological: Other - near syncopal Positive: Headache All Other Systems Reviewed And Are Negative: Yes Physical Exam - Summary Physical Exam Summary: Appearance: Morbidly obese, no pain distress Skin: warm, dry, reflects adequate perfusion; large amounts of varicose veins Head/face: normal Eyes: EOMI, RICO ENT: normal Neck: supple, non-tender Respiratory: CTA, breath sounds present Cardiovascular: RRR, pulses symmetrical Abdomen: non-tender, soft Bowel Sounds: present Musculoskeletal: normal, strength/ROM intact Neuro: normal, sensory motor intact, A&Ox3; soft globes, temporal artery is nontender. Triage Information Reviewed: Yes Vital Signs On Initial Exam: Initial Vitals Temp Pulse Resp BP Pulse Ox 98.5 F 88 18 102/65 98 04/19/18 14:14 04/19/18 14:14 04/19/18 14:14 04/19/18 14:14 04/19/18 14:14 Vital Signs Reviewed: Yes Diagnostics - Vital Signs Vital Signs Temp Pulse Resp BP Pulse Ox 04/19/18 14:36 16 04/19/18 14:14 98.5 F 88 18 102/65 98 - Laboratory Lab Results: Lab Results 04/19/18 04/19/18 Range/Units 14:27 14:27 WBC 17.8 H (3.5-10.8) 10^3/ul RBC 4.02 (4.00-5.40) 10^6/ul Hgb 11.8 L (12.0-16.0) g/dl Hct 34 L (35-47) % MCV 85 (80-97) fL MCH 30 (27-31) pg MCHC 35 (31-36) g/dl RDW 13 (10.5-15) % Plt Count 440 (150-450) 10^3/ul MPV 6.5 L (7.4-10.4) um3 Neut % (Auto) 72.5 (38-83) % Lymph % (Auto) 19.0 L (25-47) % [place] % (Auto) 7.4 H (0-7) % Eos % (Auto) 0.7 (0-6) % Baso % (Auto) 0.4 (0-2) % Absolute Neuts (auto) 12.9 H (1.5-7.7) 10^3/ul Absolute Lymphs (auto) 3.4 (1.0-4.8) 10^3/ul Absolute Monos (auto) 1.3 H (0-0.8) 10^3/ul Absolute Eos (auto) 0.1 (0-0.6) 10^3/ul Absolute Basos (auto) 0.1 (0-0.2) 10^3/ul Absolute Nucleated RBC 0 10^3/ul Nucleated RBC % 0 ESR Pending Sodium 134 L (135-145) mmol/L Potassium 4.1 (3.5-5.0) mmol/L Chloride 103 (101-111) mmol/L Carbon Dioxide 23 (22-32) mmol/L Anion Gap 8 (2-11) mmol/L BUN 8 (6-24) mg/dL Creatinine 0.57 (0.51-0.95) mg/dL Est GFR ( Amer) 146.1 (>60) Est GFR (Non-Af Amer) 120.7 (>60) BUN/Creatinine Ratio 14.0 (8-20) Glucose 300 H (70-100) mg/dL Calcium 9.3 (8.6-10.3) mg/dL C-Reactive Protein 37.50 H (<8.01) mg/L Result Diagrams: 04/19/18 14:27 04/19/18 14:27 Lab Statement: Any lab studies that have been ordered have been reviewed, and results considered in the medical decision making process. Re-Evaluation - Re-Evaluation First Eval Re-Evaluation Time: 17:24 Change: Unchanged Comment: Patient was asleep but reports LEGER is unchanged. Second Eval Re-Evaluation Time: 18:17 Change: Improved Comment: Patient reports LEGER has resolved. She will be discharged to home and follow up with her neurologist in office tomorrow. Headache Course/Dx - Course Course Of Treatment: Patient with chronic headache syndrome with some change in the character of her discomfort. She is having sharp, intermittent discomfort. She denies any visual changes. She has chronically elevated inflammatory markers to include WBC, CRP and ESR. Her markers are within range of what is typical for her. She was treated here with some relief. Her CTA of the brain is negative. I discussed the case with the on-call neurologist after her neurologist was unavailable. He is not very familiar with the patient but has reviewed all the studies, laboratory findings with me. He suggest close follow- up with Dr. Villarreal in the office tomorrow as she is in the clinic. - Diagnoses Differential Diagnosis/HQI/PQRI: Other - Chronic headache, subarachnoid, aneurysm, and temporal arteritis, other autoimmune vasculitis Provider Diagnoses: Chronic headache, History of vasculitis - Physician Notifications Discussed Care Of Patient With: Chay Romero Time Discussed With Above Provider: 18:08 Instructed by Provider To: Other - Dr. Villarreal was called as this is her patient , told to call retention specialist neurologist. Dr. Romero was consulted at 1808. Dr. Romero suggests that patient can be discharged to home and follow up with Dr. Villarreal tomorrow in her office. - Critical Care Time Critical Care Time: 30-74 min - Critical care time is exclusive of separately billable procedures Discharge - Sign-Out/Discharge Documenting (check all that apply): Patient Departure - discharge - Discharge Plan Condition: Improved Disposition: HOME Patient Education Materials: Acute Headache (ED) Referrals: Kimberlyn Dhillon MD [Primary Care Provider] - Jillian Rosa MD [Medical Doctor] - Additional Instructions: Call first thing in the morning to follow-up with Dr. Villarreal. Return with fever, visual changes, worse, new symptoms or other concerns. Monitor your blood sugar closely. Low carbohydrate diet. Drink plenty of fluids. - Billing Disposition and Condition Condition: IMPROVED Disposition: Home - Attestation Statements Document Initiated by Scribe: Yes Documenting Scribe: Rafiq Hidalgo Provider For Whom Scribe is Documenting (Include Credential): Lauro Ramirez MD Scribe Attestation: I, Rafiq Hidalgo, scribed for Lauro Ramirez MD on 04/19/18 at 1851. Scribe Documentation Reviewed: Yes Provider Attestation: The documentation as recorded by the kiahibRafiq caban accurately reflects the service I personally performed and the decisions made by me, Lauro Ramirez MD
[2018-04-19] MEDS ORDERED: Iodixanol 320 (CONTRAST) 100 ML SDV IV ONE (15:31)
--- NOTE | 2018-04-19 17:31 | RAD ---
INDICATION: Right-sided headache, history of vasculitis. COMPARISON: Comparison is made with a prior CT of the brain from June 08, 2016. TECHNIQUE: A CT scan of the brain was performed without contrast followed by a CT angiogram following intravenous injection of 80 ml of Visipaque 320 nonionic contrast. Contiguous axial sections were obtained from the skull base through the vertex. Images were reconstructed in the coronal and sagittal planes and in a 3-D volume rendered format. The study is limited due to the patient's body habitus and slight motion artifact. The study also had a be performed on the large bore CT unit further limiting the study. FINDINGS: CT OF THE BRAIN: The ventricles, cisterns and sulci appear to be within normal limits. No significant focal abnormality or mass effect is seen. There is no evidence for hemorrhage. CTA BRAIN: The internal carotid, anterior and middle cerebral arteries appear patent without evidence for high-grade stenosis or occlusion. The vertebral, basilar and posterior cerebral arteries appear patent without evidence for high-grade stenosis or occlusion. There is a dominant left vertebral artery. The right vertebral artery is very small at the level of the skull base. No aneurysm or vascular malformation is seen. IMPRESSION: 1. NO EVIDENCE FOR ACUTE INTRACRANIAL ABNORMALITY ON THE NONCONTRAST CT OF THE BRAIN. 2. EXTREMELY LIMITED CT ANGIOGRAM OF THE BRAIN WITHOUT GROSS ABNORMALITY.
[2018-04-19] MEDS ORDERED: Ketorolac INJ* 30 MG/ML 1 ML VIAL IV PUSH ONE (17:39)
[2018-04-19 18:32] VITALS: BP 139/81
== END 2018-04-19 18:31 | disposition home or self-care (01) ==
LOC: ED 14:10 → MERGE 14:10 → ED 18:31
DX: R51 Headache (principal); R11.2 Nausea with vomiting, unspecified; R55 Syncope and collapse; E11.9 Type 2 diabetes mellitus without complications; H53.8 Other visual disturbances; Z79.4 Long term (current) use of insulin; Z86.79 Personal history of other diseases of the circulatory system
CPT/HCPCS: 36415; 70496; 80048; 85025; 85652; 86140; 96374; 96375; 99283; J1200; J1885; J2270; J2765; Q9967

== ENCOUNTER 2018-05-02 09:43 | Emergency (ER) | payer OTHER ==
[2018-05-02] MEDS ORDERED: Magnesium CITRATE* 300 ML BTL PO ONE (10:14)
--- NOTE | 2018-05-02 11:21 | RAD ---
Indication: 10 days constipation. Nausea. Post cholecystectomy. Comparison: No relevant prior exams available on the [facility] [place] for comparison. Technique: Supine and upright views of the abdomen. Report: Obese body habitus limits image quality. No gross evidence for free intraperitoneal air. Moderate stool visualized in the RIGHT colon. No dilated large or small bowel loops evident. Pelvic phleboliths noted. Surgical clips at the gallbladder fossa. No gross evidence for mass effect. IMPRESSION: #. Limited exam due to obese body habitus. #. No acute abdominal pelvic pathologic process evident. #. Moderate stool visualized in the RIGHT colon. No evidence for bowel obstruction.
[2018-05-02 11:45] VITALS: BP 110/75
--- NOTE | 2018-05-02 12:10 | ED ---
Abdominal Pain/Female - HPI Summary HPI Summary: Patient is a 37-year-old female who is a frequent visitor to the ED presenting with chief complaint of constipation 10 days. She states she has been unable to have a bowel movement and states she has not passed any gas over the past 10 days. She is on chronic opioids for diffuse body aches. Patient is a smoker. She states she has this problem frequently, but takes no medications. She endorses diffuse abdominal pain, without CVA tenderness or urinary symptoms. Denies any nausea, vomiting. Denies any fevers, sweats, chills. Pain is rated a 7/10, and is constant. She describes the pain as an ache. Denies any feelings of distention. - History of Current Complaint Chief Complaint: EDAbdPain Stated Complaint: CONSTIPATION Time Seen by Provider: 05/02/18 09:44 Hx Obtained From: Patient Hx Last Menstrual Period: nexplanon ?: No Onset/Duration: Sudden Onset Timing: Constant Severity Initially: Moderate Severity Currently: Moderate Pain Intensity: 8 Pain Scale Used: 0-10 Numeric Location: Diffuse Radiates: No Character: Cramping Aggravating Factor(s): Nothing Alleviating Factor(s): Nothing Associated Signs and Symptoms: Positive: Negative, Constipation. Negative: Blood in Stool, Urinary Symptoms, Decreased Appetite, Vaginal Discharge, Nausea , Vomiting - Risk Factors Ectopic Risk Factor: Negative Ovarian Torsion Risk Factor: Negative Allergies/Adverse Reactions: Allergies Allergy/AdvReac Type Severity Reaction Status Date / Time Adhesive Tape Allergy Rash Verified 05/02/18 09:48 asenapine Allergy Rash Verified 05/02/18 09:48 bee venom protein (honey bee) Allergy Anaphylatic Verified 05/02/18 09:48 Shock lurasidone [From Latuda] Allergy Hives Verified 05/02/18 09:48 metoclopramide [From Reglan] Allergy Abdominal Verified 05/02/18 09:48 Pain paclitaxel [From Taxol] Allergy Hives Verified 05/02/18 09:48 Sulfa (Sulfonamide Allergy Unknown Verified 05/02/18 09:48 Antibiotics) Reaction Details sulfamethoxazole Allergy Hives Verified 05/02/18 09:48 [From Bactrim] trimethoprim [From Bactrim] Allergy Hives Verified 05/02/18 09:48 nalbuphine [From Nubain] AdvReac Rash Verified 05/02/18 09:48 paroxetine [From Paxil] AdvReac Vomiting Verified 05/02/18 09:48 tramadol AdvReac Rash Verified 05/02/18 09:48 "metal" Allergy Swelling Uncoded 05/02/18 09:48 zepeda Allergy Nausea And Uncoded 05/02/18 09:48 Vomiting Home Medications: Home Medications Albuterol HFA INHALER* [Ventolin HFA Inhaler*] 2 puff INH Q6H PRN 05/02/18 [ History Confirmed 05/02/18] Brexpiprazole [Rexulti] 2 mg PO BEDTIME 05/02/18 [History Confirmed 05/02/18] Cholecalciferol CAP/TAB(NF) [Vitamin D3 CAP/TAB (NF)] 2,000 unit PO DAILY [History Confirmed 05/02/18] Gabapentin TAB(NF) [Neurontin 600 mg TAB(NF)] 600 mg PO BID 05/02/18 [History Confirmed 05/02/18] Ketoconazole 2 % CREAM (NF) [Nizoral 2% CREAM (NF)] 1 applic TOPICAL DAILY 05/02 [History Confirmed 05/02/18] L.acidoph,Paracasei, B.lactis [Probiotic] 1 cap PO DAILY 05/02/18 [History Confirmed 05/02/18] LORazepam TAB(*) [Ativan 1 MG TAB (*)] 1 mg PO BID PRN MDD 2 mg 05/02/18 [ History Confirmed 05/02/18] Loperamide CAP* [Imodium CAP*] 2 mg PO BID PRN 05/02/18 [History Confirmed 05/02] LoraTADine TAB(NF) [Claritin 10 MG TAB(NF)] 10 mg PO DAILY 05/02/18 [History Confirmed 05/02/18] Magnesium Oxide TAB* [MagOx 400 TAB*] 400 mg PO DAILY 05/02/18 [History Confirmed 05/02/18] Melatonin 5 mg PO BEDTIME 05/02/18 [History Confirmed 05/02/18] Metoprolol Tartrate TAB* [Lopressor TAB*] 50 mg PO BID 05/02/18 [History Confirmed 05/02/18] Multivitamin [One Daily] 1 tab PO DAILY 05/02/18 [History Confirmed 05/02/18] Mycophenolate Mofetil CAP(*) [Cellcept CAP(*)] 1,500 mg PO BID 05/02/18 [ History Confirmed 05/02/18] Naproxen [Naproxen 500 mg tab] 500 mg PO Q12HR PRN 05/02/18 [History Confirmed 05/02/18] Ondansetron ODT TAB* [Zofran 4 MG Odt TAB*] 4 mg PO Q8H PRN 05/02/18 [History Confirmed 05/02/18] Pantoprazole TAB (NF) [Protonix TAB (NF)] 40 mg PO DAILY 05/02/18 [History Confirmed 05/02/18] Prazosin CAP* [Minipress CAP*] 2 mg PO DAILY 05/02/18 [History Confirmed ] Prazosin CAP* [Minipress CAP*] 8 mg PO BEDTIME 05/02/18 [History Confirmed 05/02] SUMAtriptan TAB* [Imitrex TAB*] 100 mg PO DAILY PRN MDD 200 mg 05/02/18 [ History Confirmed 05/02/18] Spironolactone TAB* [Aldactone TAB*] 50 mg PO QAM 05/02/18 [History Confirmed ] Topiramate TAB(*) [Topamax 100 mg tab] 100 mg PO BID 05/02/18 [History Confirmed 05/02/18] Vilazodone (NF) [Viibryd (NF)] 20 mg PO BID 05/02/18 [History Confirmed 05/02/18 ] Zolpidem TAB* [Ambien TAB*] 10 mg PO BEDTIME PRN MDD 10 mg 05/02/18 [History Confirmed 05/02/18] metroNIDAZOLE [Metronidazole 0.75 % gel] 1 applic TOPICAL DAILY 05/02/18 [ History Confirmed 05/02/18] PMH/Surg Hx/FS Hx/Imm Hx Previously Healthy: Yes Endocrine/Hematology History: Reports: Hx Diabetes - type 2 dm on insulin, Hx Anemia Denies: Hx Thyroid Disease, Other Endocrine/Hematological Disorders Cardiovascular History: Reports: Hx Angina, Hx Hypercholesterolemia, Other Cardiovascular Problems/Disorders - vasculitis. tachycardia Denies: Hx Coronary Artery Disease, Hx Hypertension - ON BP MEDS FOR TACHY, Hx Myocardial Infarction, Hx Pacemaker/ICD, Hx Peripheral Vascular Disease, Hx Valvular Heart Disease Respiratory History: Reports: Hx Asthma, Hx Sleep Apnea Denies: Hx Chronic Obstructive Pulmonary Disease (COPD), Other Respiratory Problems/Disorders GI History: Reports: Hx Crohn's Disease, Hx Gastroesophageal Reflux Disease, Hx Irritable Bowel, Other GI Disorders - gastroparesis Denies: Hx Ulcer History: Denies: Hx Dialysis, Hx Renal Disease, Other Problems/Disorders Musculoskeletal History: Reports: Hx Arthritis - back and knees, Other Musculoskeletal History - Ulnar nerve compression Right arm Denies: Hx Osteoporosis Sensory History: Reports: Hx Contacts or Glasses - glasses Denies: Hx Legally Blind, Hx Deafness, Hx Hearing Aid Opthamlomology History: Reports: Hx Contacts or Glasses - glasses Denies: Hx Legally Blind Neurological History: Reports: Hx Headaches, Hx Migraine Denies: Hx Seizures, Hx Transient Ischemic Attacks (TIA), Other Neuro Impairments/Disorders Psychiatric History: Reports: Hx Anxiety, Hx Depression, Hx Panic Disorder - PTSD, Hx Post Traumatic Stress Disorder, Hx Inpatient Treatment, Hx Community Mental Health Tx, Hx Suicide Attempt, Other Psychiatric Issues/Disorders - Borderline Personality Disorder Denies: Hx Attention Deficit Hyperactivity Disorder, Hx Eating Disorder, Hx Schizophrenia, Hx Bipolar Disorder, Hx of Violent Episodes Against Others - Surgical History Surgery Procedure, Year, and Place: Cholecystectomy [facility] in [place]. Cardiac Catherterization-NO STENT [facility] 2005, 2017 [facility] [place],. ulnar nerve release 2017, [facility] [place] Hx Anesthesia Reactions: No - Immunization History Date of Tetanus Vaccine: utd Date of Influenza Vaccine: fall 2016 Hx Pertussis Vaccination: No Immunizations Up to Date: Yes Infectious Disease History: No Infectious Disease History: Reports: Hx of Known/Suspected MRSA - treated. noncarrier now Denies: Hx Hepatitis, Hx Human Immunodeficiency Virus (HIV), Traveled Outside the in Last 30 Days - Family History Known Family History: Positive: Cardiac Disease, Diabetes, Other - blood clots ( mother), pacemaker (father) Negative: Hypertension - Social History Occupation: Unemployed Lives: Alone Alcohol Use: None Hx Substance Use: Yes Substance Use Type: Reports: Marijuana Substance Use Comment - Amount & Last Used: USED FOR PAIN MANAGMENT. Hx Tobacco Use: Yes Smoking Status (MU): Light Every Day Tobacco Smoker Type: Cigarettes Amount Used/How Often: 5 cigarettes/day Length of Time of Smoking/Using Tobacco: 4 CIG/DAY 2 YEARS Have You Smoked in the Last Year: Yes - 04/05/18 Review of Systems Constitutional: Negative Negative: Fever, Chills, Fatigue, Skin Diaphoresis Negative: Palpitations, Chest Pain Negative: Shortness Of Breath, Cough Positive: Abdominal Pain. Negative: Vomiting, Diarrhea, Nausea Genitourinary: Negative Positive: no symptoms reported, see HPI Negative: Arthralgia, Myalgia Skin: Negative Neurological: Negative All Other Systems Reviewed And Are Negative: Yes Physical Exam Triage Information Reviewed: Yes Vital Signs On Initial Exam: Initial Vitals Temp Pulse Resp BP Pulse Ox 97.6 F 84 19 129/85 98 05/02/18 09:43 05/02/18 09:43 05/02/18 09:43 05/02/18 09:43 05/02/18 09:43 Vital Signs Reviewed: Yes Appearance: Positive: Well-Nourished, Obese Skin: Positive: Warm, Skin Color Reflects Adequate Perfusion Head/Face: Positive: Normal Head/Face Inspection Eyes: Positive: EOMI, RICO, Conjunctiva Clear Neck: Positive: Supple Respiratory/Lung Sounds: Positive: Clear to Auscultation, Breath Sounds Present Cardiovascular: Positive: RRR, Pulses are Symmetrical in both Upper and Lower Extremities Abdomen Description: Positive: Other: - Decreased bowel sounds throughout, tenderness to light palpation throughout Musculoskeletal: Positive: Normal, Strength/ROM Intact Neurological: Positive: Sensory/Motor Intact, Alert, Oriented to Person Place, Time, Speech Normal Psychiatric: Positive: Normal, Affect/Mood Appropriate AVPU Assessment: Alert Diagnostics - Vital Signs Vital Signs Temp Pulse Resp BP Pulse Ox 05/02/18 11:44 97.1 F 65 16 110/75 99 05/02/18 10:10 15 05/02/18 09:43 97.6 F 84 19 129/85 98 - Laboratory Lab Statement: Any lab studies that have been ordered have been reviewed, and results considered in the medical decision making process. Abdominal Pain Fem Course/Dx - Course Course Of Treatment: Patient is given 300 mL mag citrate in the ED. She was unable to have a bowel movement while in the ED. Abdominal x-ray shows moderate amount of stool in the right colon, but no signs of an SBO. Patient appears well. Decreased bowel sounds throughout. She is encouraged a regimen of daily senna while continuing to take the opioids. - Diagnoses Provider Diagnoses: Constipation Discharge - Sign-Out/Discharge Documenting (check all that apply): Patient Departure - Discharge Plan Condition: Stable Disposition: HOME Patient Education Materials: Constipation (ED) Referrals: Kimberlyn Dhillon MD [Primary Care Provider] - Additional Instructions: If you continue to not have a bowel movement by the end of the day, you may at 1 packet of [id number] MiraLAX If he still do not have a bowel movement by tomorrow morning, continue the MiraLAX every 4-6 hours until a bowel movement occurs After 2-3 days if you continue to not have a bowel movement despite these measures, return to the ED Drink at least 8 full glasses of water per day A regimen of daily senna while taking opioids could be helpful to prevent further and worsening constipation - Billing Disposition and Condition Condition: STABLE Disposition: Home
== END 2018-05-02 11:44 | disposition home or self-care (01) ==
LOC: ED 09:43
DX: K59.00 Constipation, unspecified (principal); E11.9 Type 2 diabetes mellitus without complications; Z79.4 Long term (current) use of insulin; F17.210 Nicotine dependence, cigarettes, uncomplicated
CPT/HCPCS: 74019; 99282; A9270-GY

== ENCOUNTER 2018-05-21 18:49 | Emergency (ER) | payer OTHER ==
--- NOTE | 2018-05-21 19:05 | ED ---
Headache - HPI Summary HPI Summary: This patient is a 37 year old F presenting to [facility] with c/o migraine onset one week ago and worsening. She states feeling as though "something is going to pop. " She last saw her neurologist 1 month ago. Associated sx: ear aches and mildly blurred vision. Patient denies n/v/d, SOB, CP, abd pain. She states she has taken all of her normal medications including Topamax bid, Imitrex (can only have 2x week), and had Fioricet at 1700 today without relief. Pt is a smoker. - History Of Current Complaint Chief Complaint: EDHeadache Stated Complaint: MIGRAINE Hx Obtained From: Patient Hx Last Menstrual Period: nexplanon Onset/Duration: Started days ago, Still Present Initially Headache Was: Moderate Currently Pain Is: Current Pain Scale(0-10)= - 10/10, Pt laying comfortably in stretcher., Severe Timing: Constant Character: Migraine Location of Headache: Diffuse Associated Signs And Symptoms: Other (Noted In Comments) - see HPI - Allergies/Home Medications Allergies/Adverse Reactions: Allergies Allergy/AdvReac Type Severity Reaction Status Date / Time Adhesive Tape Allergy Rash Verified 05/11/18 10:52 asenapine Allergy Rash Verified 05/11/18 10:52 bee venom protein (honey bee) Allergy Anaphylatic Verified 05/11/18 10:52 Shock lurasidone [From Latuda] Allergy Hives Verified 05/11/18 10:52 metoclopramide [From Reglan] Allergy Abdominal Verified 05/11/18 10:52 Pain paclitaxel [From Taxol] Allergy Hives Verified 05/11/18 10:52 Sulfa (Sulfonamide Allergy Unknown Verified 05/11/18 10:52 Antibiotics) Reaction Details sulfamethoxazole Allergy Hives Verified 05/11/18 10:52 [From Bactrim] trimethoprim [From Bactrim] Allergy Hives Verified 05/11/18 10:52 nalbuphine [From Nubain] AdvReac Rash Verified 05/11/18 10:52 paroxetine [From Paxil] AdvReac Vomiting Verified 05/11/18 10:52 tramadol AdvReac Rash Verified 05/11/18 10:52 "metal" Allergy Swelling Uncoded 05/02/18 09:48 zepeda Allergy Nausea And Uncoded 05/02/18 09:48 Vomiting PMH/Surg Hx/FS Hx/Imm Hx Previously Healthy: No Endocrine/Hematology History: Reports: Hx Diabetes - type 2 dm on insulin, Hx Anemia Denies: Hx Thyroid Disease, Other Endocrine/Hematological Disorders Cardiovascular History: Reports: Hx Angina, Hx Hypercholesterolemia, Other Cardiovascular Problems/Disorders - vasculitis. tachycardia Denies: Hx Coronary Artery Disease, Hx Hypertension - ON BP MEDS FOR TACHY, Hx Myocardial Infarction, Hx Pacemaker/ICD, Hx Peripheral Vascular Disease, Hx Valvular Heart Disease Respiratory History: Reports: Hx Asthma, Hx Sleep Apnea Denies: Hx Chronic Obstructive Pulmonary Disease (COPD), Other Respiratory Problems/Disorders GI History: Reports: Hx Crohn's Disease, Hx Gastroesophageal Reflux Disease, Hx Irritable Bowel, Other GI Disorders - gastroparesis Denies: Hx Ulcer History: Denies: Hx Dialysis, Hx Renal Disease, Other Problems/Disorders Musculoskeletal History: Reports: Hx Arthritis - back and knees, Other Musculoskeletal History - Ulnar nerve compression Right arm Denies: Hx Osteoporosis Sensory History: Reports: Hx Contacts or Glasses - glasses Denies: Hx Legally Blind, Hx Deafness, Hx Hearing Aid Opthamlomology History: Reports: Hx Contacts or Glasses - glasses Denies: Hx Legally Blind Neurological History: Reports: Hx Headaches, Hx Migraine Denies: Hx Seizures, Hx Transient Ischemic Attacks (TIA), Other Neuro Impairments/Disorders Psychiatric History: Reports: Hx Anxiety, Hx Depression, Hx Panic Disorder - PTSD, Hx Post Traumatic Stress Disorder, Hx Inpatient Treatment, Hx Community Mental Health Tx, Hx Suicide Attempt, Other Psychiatric Issues/Disorders - Borderline Personality Disorder Denies: Hx Attention Deficit Hyperactivity Disorder, Hx Eating Disorder, Hx Schizophrenia, Hx Bipolar Disorder, Hx of Violent Episodes Against Others - Surgical History Surgery Procedure, Year, and Place: Cholecystectomy [facility]. Cardiac Catherterization-NO STENT [facility] 2005, 2016 [facility] [place],. ulnar nerve release 2017, [facility] [place] Hx Anesthesia Reactions: No - Immunization History Date of Tetanus Vaccine: utd Date of Influenza Vaccine: fall 2016 Infectious Disease History: No Infectious Disease History: Reports: Hx of Known/Suspected MRSA - treated. noncarrier now Denies: Hx Hepatitis, Hx Human Immunodeficiency Virus (HIV), Traveled Outside the [place] in Last 30 Days - Family History Known Family History: Positive: Cardiac Disease, Diabetes, Other - blod clots Negative: Hypertension - Social History Occupation: Unemployed Lives: Alone Alcohol Use: None Hx Substance Use: Yes Substance Use Type: Reports: Marijuana Substance Use Comment - Amount & Last Used: USED FOR PAIN MANAGMENT. Hx Tobacco Use: Yes Smoking Status (MU): Light Every Day Tobacco Smoker Type: Cigarettes Amount Used/How Often: 5 cigarettes/day Length of Time of Smoking/Using Tobacco: 4 CIG/DAY 2 YEARS Have You Smoked in the Last Year: Yes - 04/05/18 Review of Systems Negative: Fever, Chills Positive: Blurred Vision - mild. Negative: Photophobia Positive: Ear Ache. Negative: Sore Throat Negative: Chest Pain Negative: Shortness Of Breath Negative: Abdominal Pain, Vomiting, Diarrhea, Nausea Negative: dysuria, hematuria Negative: Edema Negative: Rash, Bruising Positive: Headache Negative: Anxious, Depressed All Other Systems Reviewed And Are Negative: No Physical Exam - Summary Physical Exam Summary: Appearance: Alert, conversive, nontoxic appearing. Morbidly Obese. Skin: Warm, dry, no mottling, no rashes, no contusions HEENT: EOMI, PERRL, moist mucous membranes Neck: No masses on the neck, supple Respiratory: Clear to auscultation, breath sounds present, no rales, no rhonchi , no wheezes Cardiovascular: RRR, pulses are symmetrical in both lower and upper extremities Abdomen: Soft, non-tender Bowel Sounds: Present Musculoskeletal: No CVA tenderness, no obvious deformity, moving all extremities in a grossly normal manner Neurological: A&Ox3, CN II-XII Intact, moving all extremities symmetrically Psychiatric: Tearful at bedside. Triage Information Reviewed: Yes Vital Signs On Initial Exam: Initial Vitals Temp Pulse Resp BP Pulse Ox 97.7 F 101 20 113/84 97 05/21/18 18:52 05/21/18 18:52 05/21/18 18:52 05/21/18 18:52 05/21/18 18:52 Vital Signs Reviewed: Yes Diagnostics - Vital Signs Vital Signs Temp Pulse Resp BP Pulse Ox 05/21/18 18:52 97.7 F 101 20 113/84 97 - Laboratory Lab Statement: Any lab studies that have been ordered have been reviewed, and results considered in the medical decision making process. Re-Evaluation - Re-Evaluation First Eval Re-Evaluation Time: 20:23 Change: Improved - Minimally. Comment: Discussed plan for discharge with patient. Headache Course/Dx - Course Course Of Treatment: Pt is a 52 y/o morbidly obese F presenting with LEGER one week and worsening. Associated sx: mildly blurry vision, ear aches. The exam was unremarkable. Pt was given plan for discharge and the Pt was agreeable with this plan. - Diagnoses Provider Diagnoses: Migraines Discharge - Sign-Out/Discharge Documenting (check all that apply): Patient Departure - Discharge Plan Condition: Stable Disposition: HOME Patient Education Materials: Migraine Headache (ED) Referrals: Kimberlyn Dhillon MD [Primary Care Provider] - Additional Instructions: follow up with your primary care physician. take all medications as previously instructed. return if worse or any new symptoms. Keep all appt with your doctors. - Attestation Statements Document Initiated by Scribe: Yes Documenting Scribe: Carley Bear Provider For Whom Scribe is Documenting (Include Credential): Dr. Carla Lerma MD Scribe Attestation: Carley Richmond, scribed for Dr. Carla Lerma MD on 05/21/18 at 2118.
[2018-05-21] MEDS ORDERED: Magnesium Sulfate 2 GM IV* 2 GM/50 ML BAG IVPB ONE (19:15)
[2018-05-21] MEDS ORDERED: PROCHLORPERAZINE INJ 5 MG/ML 2 ML VIAL IV PRN (19:15)
[2018-05-21] MEDS ORDERED: NS 0.9% 1000 ML* 1,000 ML IV ONE (19:15)
[2018-05-21] MEDS ORDERED: Ketorolac INJ* 30 MG/ML 1 ML VIAL IV PUSH ONE (19:15)
[2018-05-21] MEDS ORDERED: diPHENhydraMINE IV* 50 MG/ML 1 ml VIAL (BENADRYL) IV ONE (19:18)
[2018-05-21] MEDS ORDERED: fentaNYL* 50 MCG/ML 2 ML VIAL (100 MCG VIAL) IV SLOW PU ONE (20:33)
[2018-05-21 21:16] VITALS: BP 126/86
== END 2018-05-21 21:21 | disposition home or self-care (01) ==
LOC: ED 18:49
DX: G43.909 Migraine, unspecified, not intractable, without status migrainosus (principal); H53.8 Other visual disturbances; H92.09 Otalgia, unspecified ear; F17.210 Nicotine dependence, cigarettes, uncomplicated
CPT/HCPCS: 96365; 96375; 99282; J1200; J1885; J3010; J3475

== ENCOUNTER 2018-06-14 12:54 | Emergency (ER) | payer OTHER ==
[2018-06-14 14:30] LABS: ABS Basophils 0.2 10^3/ul (0-0.2); ABS Eosinophils 0.2 10^3/ul (0-0.6); ABS Lymphocytes 3.9 10^3/ul (1.0-4.8); ABS Monocytes 1.2 10^3/ul (0-0.8); ABS Neutrophils 13.2 10^3/ul (1.5-7.7); ABS Nucleated RBC 0 10^3/ul; Hematocrit 43 % (35-47); Hemoglobin 14.6 g/dl (12.0-16.0); Lymphocyte % 21.1 % (25-47); Mean Corpuscular HGB Conc 34 g/dl (31-36); Mean Corpuscular Hemoglobin 29 pg (27-31); Mean Corpuscular Volume 87 fL (80-97); Mean Platelet Volume 6.8 um3 (7.4-10.4); Nucleated Red Blood Cells % 0.1; Platelet Count 376 10^3/ul (150-450); Red Blood Count 5.01 10^6/ul (4.00-5.40); Red Cell Distribution Width 14 % (10.5-15); White Blood Count 18.7 10^3/ul (3.5-10.8)
[2018-06-14 14:49] LABS: EGFR Non-African American 120.7 (>60)
[2018-06-14] MEDS ORDERED: Ondansetron INJ* 2 MG/ML VIAL IV ONE (16:56)
[2018-06-14] MEDS ORDERED: Ketorolac INJ* 30 MG/ML 1 ML VIAL IV PUSH ONE ×2 (16:56→18:58)
[2018-06-14] MEDS ORDERED: NS 0.9% 1000 ML* 1,000 ML IV ONE ×2 (16:56→17:06)
[2018-06-14] MEDS ORDERED: Iodixanol* (CONTRAST) 320 MG/ML 100 ML SDV IV ONE (17:05)
--- NOTE | 2018-06-14 17:09 | ED ---
GI/ HPI - HPI Summary HPI Summary: 37-year-old female presents with vomiting and abdominal pain for the past 4 days. States she tried Zofran without relief. She denies any diarrhea. She states she has not had a normal bowel movements in a couple days. She has history of constipation. She has had a gallbladder removed. She has history of ovarian cysts. She states she's hasnt been able to keep anything down. She states this feels similar to when she had an infection couple years ago. No urinary symptoms. no vaginal discharge. - History of Current Complaint Chief Complaint: EDAbdPain Time Seen by Provider: 06/14/18 16:41 Stated Complaint: ABD PAIN/VOMITING Hx Last Menstrual Period: nexplanon Pain Intensity: 9 - Additional Pertinent History Primary Care Physician: KARTHIKEYAN - Allergy/Home Medications Allergies/Adverse Reactions: Allergies Allergy/AdvReac Type Severity Reaction Status Date / Time Adhesive Tape Allergy Rash Verified 05/11/18 10:52 asenapine Allergy Rash Verified 05/11/18 10:52 bee venom protein (honey bee) Allergy Anaphylatic Verified 05/11/18 10:52 Shock lurasidone [From Latuda] Allergy Hives Verified 05/11/18 10:52 metoclopramide [From Reglan] Allergy Abdominal Verified 05/11/18 10:52 Pain paclitaxel [From Taxol] Allergy Hives Verified 05/11/18 10:52 Sulfa (Sulfonamide Allergy Unknown Verified 05/11/18 10:52 Antibiotics) Reaction Details sulfamethoxazole Allergy Hives Verified 05/11/18 10:52 [From Bactrim] trimethoprim [From Bactrim] Allergy Hives Verified 05/11/18 10:52 nalbuphine [From Nubain] AdvReac Rash Verified 05/11/18 10:52 paroxetine [From Paxil] AdvReac Vomiting Verified 05/11/18 10:52 tramadol AdvReac Rash Verified 05/11/18 10:52 "metal" Allergy Swelling Uncoded 05/02/18 09:48 zepeda Allergy Nausea And Uncoded 05/02/18 09:48 Vomiting PMH/Surg Hx/FS Hx/Imm Hx Endocrine/Hematology History: Reports: Hx Diabetes - type 2 dm on insulin, Hx Anemia Denies: Hx Thyroid Disease, Other Endocrine/Hematological Disorders Cardiovascular History: Reports: Hx Angina, Hx Hypercholesterolemia, Other Cardiovascular Problems/Disorders - vasculitis. tachycardia Denies: Hx Coronary Artery Disease, Hx Hypertension - ON BP MEDS FOR TACHY, Hx Myocardial Infarction, Hx Pacemaker/ICD, Hx Peripheral Vascular Disease, Hx Valvular Heart Disease Respiratory History: Reports: Hx Asthma, Hx Sleep Apnea Denies: Hx Chronic Obstructive Pulmonary Disease (COPD), Other Respiratory Problems/Disorders GI History: Reports: Hx Crohn's Disease, Hx Gastroesophageal Reflux Disease, Hx Irritable Bowel, Other GI Disorders - gastroparesis Denies: Hx Ulcer History: Denies: Hx Dialysis, Hx Renal Disease, Other Problems/Disorders Musculoskeletal History: Reports: Hx Arthritis - back and knees, Other Musculoskeletal History - Ulnar nerve compression Right arm Denies: Hx Osteoporosis Sensory History: Reports: Hx Contacts or Glasses - glasses Denies: Hx Legally Blind, Hx Deafness, Hx Hearing Aid Opthamlomology History: Reports: Hx Contacts or Glasses - glasses Denies: Hx Legally Blind Neurological History: Reports: Hx Headaches, Hx Migraine Denies: Hx Seizures, Hx Transient Ischemic Attacks (TIA), Other Neuro Impairments/Disorders Psychiatric History: Reports: Hx Anxiety, Hx Depression, Hx Panic Disorder - PTSD, Hx Post Traumatic Stress Disorder, Hx Inpatient Treatment, Hx Community Mental Health Tx, Hx Suicide Attempt, Other Psychiatric Issues/Disorders - Borderline Personality Disorder Denies: Hx Attention Deficit Hyperactivity Disorder, Hx Eating Disorder, Hx Schizophrenia, Hx Bipolar Disorder, Hx of Violent Episodes Against Others - Surgical History Surgery Procedure, Year, and Place: Cholecystectomy [facility] [place]. Cardiac Catherterization-NO STENT [facility] 2005, 2017 [facility] [place],. ulnar nerve release 2017, [facility] [place] Hx Anesthesia Reactions: No - Immunization History Date of Tetanus Vaccine: utd Date of Influenza Vaccine: fall 2016 Infectious Disease History: No Infectious Disease History: Reports: Hx of Known/Suspected MRSA - treated. noncarrier now Denies: Hx Hepatitis, Hx Human Immunodeficiency Virus (HIV), Traveled Outside the [place] in Last 30 Days - Family History Known Family History: Positive: Cardiac Disease, Diabetes, Other - blod clots Negative: Hypertension - Social History Alcohol Use: None Hx Substance Use: Yes Substance Use Type: Reports: Marijuana Substance Use Comment - Amount & Last Used: USED FOR PAIN MANAGMENT. Hx Tobacco Use: Yes Smoking Status (MU): Light Every Day Tobacco Smoker Type: Cigarettes Amount Used/How Often: 5 cigarettes/day Length of Time of Smoking/Using Tobacco: 4 CIG/DAY 2 YEARS Have You Smoked in the Last Year: Yes - 04/05/18 Review of Systems Negative: Fever Negative: Chest Pain Negative: Shortness Of Breath Positive: Abdominal Pain, Vomiting, Nausea, Other - constipation. Negative: Diarrhea All Other Systems Reviewed And Are Negative: Yes Physical Exam Triage Information Reviewed: Yes Vital Signs On Initial Exam: Initial Vitals Temp Pulse Resp BP Pulse Ox 97.0 F 86 14 140/70 96 06/14/18 12:56 06/14/18 12:56 06/14/18 12:56 06/14/18 12:56 06/14/18 12:56 Vital Signs Reviewed: Yes Appearance: Positive: Well-Appearing Skin: Positive: Warm, Dry Head/Face: Positive: Normal Head/Face Inspection Eyes: Positive: Normal, Conjunctiva Clear ENT: Positive: Pharynx normal Respiratory/Lung Sounds: Positive: Clear to Auscultation, Breath Sounds Present Cardiovascular: Positive: Normal, RRR Abdomen Description: Positive: Soft, Other: - tenderness in RLQ Bowel Sounds: Positive: Present Musculoskeletal: Positive: Normal Neurological: Positive: Normal Psychiatric: Positive: Normal Diagnostics - Vital Signs Vital Signs Temp Pulse Resp BP Pulse Ox 06/14/18 15:42 97.3 F 94 18 125/98 98 06/14/18 12:56 97.0 F 86 14 140/70 96 - Laboratory Lab Results: Lab Results 06/14/18 06/14/18 06/14/18 Range/Units 14:21 14:21 14:21 WBC 18.7 H (3.5-10.8) 10^3/ul RBC 5.01 (4.00-5.40) 10^6/ul Hgb 14.6 (12.0-16.0) g/dl Hct 43 (35-47) % MCV 87 (80-97) fL MCH 29 (27-31) pg MCHC 34 (31-36) g/dl RDW 14 (10.5-15) % Plt Count 376 (150-450) 10^3/ul MPV 6.8 L (7.4-10.4) um3 Neut % (Auto) 70.7 (38-83) % Lymph % (Auto) 21.1 L (25-47) % [place] % (Auto) 6.2 (0-7) % Eos % (Auto) 1.0 (0-6) % Baso % (Auto) 1.0 (0-2) % Absolute Neuts (auto) 13.2 H (1.5-7.7) 10^3/ul Absolute Lymphs (auto) 3.9 (1.0-4.8) 10^3/ul Absolute Monos (auto) 1.2 H (0-0.8) 10^3/ul Absolute Eos (auto) 0.2 (0-0.6) 10^3/ul Absolute Basos (auto) 0.2 (0-0.2) 10^3/ul Absolute Nucleated RBC 0 10^3/ul Nucleated RBC % 0.1 Sodium 132 L (135-145) mmol/L Potassium 4.1 (3.5-5.0) mmol/L Chloride 101 (101-111) mmol/L Carbon Dioxide 21 L (22-32) mmol/L Anion Gap 10 (2-11) mmol/L BUN 8 (6-24) mg/dL Creatinine 0.57 (0.51-0.95) mg/dL Est GFR ( Amer) 146.1 (>60) Est GFR (Non-Af Amer) 120.7 (>60) BUN/Creatinine Ratio 14.0 (8-20) Glucose 350 H (70-100) mg/dL Lactic Acid 1.4 (0.5-2.0) mmol/L Calcium 9.6 (8.6-10.3) mg/dL Total Bilirubin 0.50 (0.2-1.0) mg/dL AST 10 L (13-39) U/L ALT 12 (7-52) U/L Alkaline Phosphatase 131 H (34-104) U/L C-Reactive Protein 22.24 H (<8.01) mg/L Total Protein 8.0 (6.4-8.9) g/dL Albumin 3.8 (3.2-5.2) g/dL Globulin 4.2 H (2-4) g/dL Albumin/Globulin Ratio 0.9 L (1-3) Lipase < 10 L (11.0-82.0) U/L Beta HCG, Quant < 0.60 mIU/mL Result Diagrams: 06/14/18 14:21 06/14/18 14:21 Lab Statement: Any lab studies that have been ordered have been reviewed, and results considered in the medical decision making process. - CT abd CT Interpretation Completed By: Radiologist Summary of CT Findings: IMPRESSION: 1. The appendix is unremarkable. 2. There may be a 2.3 cm left ovarian cyst. Re-Evaluation - Re-Evaluation First Eval Re-Evaluation Time: 18:59 Change: Improved Comment: no longer nausous GIGU Course/Dx - Course Course Of Treatment: 37-year-old female presents with vomiting and abdominal pain for the past 4 days. States she tried Zofran without relief. She denies any diarrhea. She states she has not had a normal bowel movements in a couple days. She has history of constipation. She has had a gallbladder removed. She has history of ovarian cysts. She states she's hasnt been able to keep anything down. She states this feels similar to when she had an infection couple years ago. No urinary symptoms. no vaginal discharge. on exam has tenderness RLQ. no rebound. wbc 18.7 which is similiar to previous, sodium is low. lactic normal. crp elevated. CT abd normal. discussed results. patient has zofran at home. do not want to give any nacrotic pain medication as patient has history of constipation and will make worst. discussed probably needs a follow up with gi due to frequent visits her for abd pain. patient understand and agrees with plan. - Diagnoses Differential Diagnoses - Female: Appendicitis, Gastroenteritis (Viral), Urinary Tract Infection Provider Diagnoses: Vomiting, Abdominal pain Discharge - Sign-Out/Discharge Documenting (check all that apply): Patient Departure - Discharge Plan Condition: Good Disposition: HOME Patient Education Materials: Abdominal Pain (ED) Referrals: Patel Bhat MD [Medical Doctor] - Kimberlyn Dhillon MD [Primary Care Provider] - Additional Instructions: Can take Zofran every 6 hours as needed for nausea Drink small amounts of fluid as tolerated When able to eat follow BRAT diet: Bananas, rice, applesauce, toast Take ibuprofen or Tylenol for pain as needed every 6 hours Follow up with primary within 5 days, follow up with GI in future Return to ED if develop any new or worsening symptoms - Billing Disposition and Condition Condition: GOOD Disposition: Home
--- NOTE | 2018-06-14 19:18 | RAD ---
EXAM: CT Abdomen and Pelvis With Intravenous Contrast EXAM DATE/TIME: 06/14/2018 6:44 PM CLINICAL HISTORY: 37 years old, female; Pain; Abdominal pain; Localized; Right lower quadrant (rlq); Additional info: Rlq pain TECHNIQUE: Axial computed tomography images of the abdomen and pelvis with intravenous contrast. All CT scans at this facility use at least one of these dose optimization techniques: automated exposure control; mA and/or kV adjustment per patient size (includes targeted exams where dose is matched to clinical indication); or iterative reconstruction. Coronal and sagittal reformatted images were created and reviewed. CONTRAST: 141 ml of [id number] administered intravenously. COMPARISON: A/P W CT ABD/PEL W 02/19/2018 8:42 PM FINDINGS: Lower thorax: There is mild bibasilar atelectatic change or scarring. ABDOMEN: Liver: Normal. No mass. Gallbladder and bile ducts: Stable postoperative changes of cholecystectomy. Pancreas: Normal. No ductal dilation. Spleen: Normal. No splenomegaly. Adrenals: Normal. No mass. Kidneys and ureters: Normal. No hydronephrosis. Stomach and bowel: Normal. No obstruction. No mucosal thickening. Appendix: The appendix is unremarkable. The appendix is seen best on axial image 67 of series 2. PELVIS: Bladder: Unremarkable as visualized. Reproductive: There may be a 2.3 cm left ovarian cyst. ABDOMEN and PELVIS: Intraperitoneal space: Normal. No free air. No significant fluid collection. Bones/joints: Stable mild degenerative changes of the spine. Soft tissues: Unremarkable. Vasculature: Normal. No abdominal aortic aneurysm. Lymph nodes: Normal. No enlarged lymph nodes. IMPRESSION: 1. The appendix is unremarkable. 2. There may be a 2.3 cm left ovarian cyst. To contact [facility] with a general question: Operations Center - [phone] For direct physician to physician contact: Physician Hotline - [phone] [facility] ([facility] Facility ID #[id number])
[2018-06-14] MEDS ORDERED: Al Hydrox/Mg Hydrox/Simet LIQ* 30 ML UDC PO ONE (19:26)
[2018-06-14] MEDS ORDERED: Lidocaine 2% VISCOUS* 15 ML UDC PO ONE (19:26)
[2018-06-14 20:00] VITALS: BP 115/75
== END 2018-06-14 20:00 | disposition home or self-care (01) ==
LOC: ED 12:54
DX: R10.813 Right lower quadrant abdominal tenderness (principal); R11.10 Vomiting, unspecified; F17.210 Nicotine dependence, cigarettes, uncomplicated; Z79.4 Long term (current) use of insulin; E78.00 Pure hypercholesterolemia, unspecified; E11.9 Type 2 diabetes mellitus without complications; Z98.61 Coronary angioplasty status; K31.84 Gastroparesis
CPT/HCPCS: 36415; 74177; 80053; 83605; 83690; 84702; 85025; 86140; 96361; 96374; 96375; 96376; 99284; A9270-GY; J1885; J2405; Q9967

== ENCOUNTER 2018-07-19 14:42 | Emergency (ER) | payer OTHER ==
[2018-07-19 16:03] LABS: ABS Basophils 0.1 10^3/ul (0-0.2); ABS Eosinophils 0.4 10^3/ul (0-0.6); ABS Lymphocytes 3.4 10^3/ul (1.0-4.8); ABS Monocytes 1.1 10^3/ul (0-0.8); ABS Neutrophils 15.9 10^3/ul (1.5-7.7); ABS Nucleated RBC 0 10^3/ul; Eosinophil % 2.1 %; Hematocrit 44 % (35-47); Hemoglobin 14.6 g/dl (12.0-16.0); Lymphocyte % 16.1 %; Mean Corpuscular HGB Conc 33 g/dl (31-36); Mean Corpuscular Hemoglobin 29 pg (27-31); Mean Corpuscular Volume 87 fL (80-97); Mean Platelet Volume 6.5 fL (7.4-10.4); Nucleated Red Blood Cells % 0.1; Platelet Count 436 10^3/ul (150-450); Red Blood Count 5.07 10^6/ul (4.00-5.40); Red Cell Distribution Width 14 % (10.5-15); White Blood Count 20.9 10^3/ul (3.5-10.8)
[2018-07-19 16:21] LABS: EGFR Non-African American 109.5 (>60)
[2018-07-19] MEDS ORDERED: diPHENhydraMINE IV* 50 MG/ML 1 ml VIAL (BENADRYL) IV ONE (19:35)
[2018-07-19] MEDS ORDERED: Acetaminophen TAB* 325 MG PO ONE (19:35)
[2018-07-19] MEDS ORDERED: Metoclopramide IV* 5 MG/ML 2 ML VIAL IV ONE (19:35)
[2018-07-19] MEDS ORDERED: Aspirin 81 mg CHEW TAB* 81 MG TAB.CHEW PO ONE (19:50)
[2018-07-19] MEDS ORDERED: PROCHLORPERAZINE INJ 5 MG/ML 2 ML VIAL IV ONE (20:58)
[2018-07-19] MEDS ORDERED: diPHENhydraMINE PO* 50 MG PO ONE (20:59)
--- NOTE | 2018-07-19 21:03 | ED ---
HPI Chest Pain - HPI Summary HPI Summary: Patient complains of left-sided chest pain radiating to left shoulder starting last night, and migraine 3 days. Chest pain described as constant, progressive , rated 6/10, throbbing. Patient has history of migraines, usually treated with Fioricet and sumatriptan. No relief with standard medications at this time. Denies fever, cough, sore throat, SOB, N/V/D, abdominal pain, change in urine, change in BM, trauma. Denies history of blood clots, cancer, , recent surgery or trauma, unilateral leg pain, immobility, long travel. Medical history is vasculitis, DM, HDL, HTN, migraines. Positive family cardiac history. Positive smoker. Denies illegal or illegal stimulant use. - History of Current Complaint Chief Complaint: EDChestPainROMI Time Seen by Provider: 07/19/18 18:38 Hx Obtained From: Patient Hx Last Menstrual Period: nexplanon Onset/Duration: Started Hours Ago Timing: Constant Initial Severity: Moderate Current Severity: Moderate Pain Intensity: 8 Pain Scale Used: 0-10 Numeric Chest Pain Location: Left Anterior Chest Pain Radiates: Yes Chest Pain Radiates To:: Shoulder Character: Tightness Aggravating Factor(s): Nothing Alleviating Factor(s): Nothing Associated Signs and Symptoms: Positive: Chest Pain - Additional Pertinent History Primary Care Physician: KARTHIKEYAN - Allergy/Home Medications Allergies/Adverse Reactions: Allergies Allergy/AdvReac Type Severity Reaction Status Date / Time Adhesive Tape Allergy Rash Verified 05/11/18 10:52 asenapine Allergy Rash Verified 05/11/18 10:52 bee venom protein (honey bee) Allergy Anaphylatic Verified 05/11/18 10:52 Shock lurasidone [From Latuda] Allergy Hives Verified 05/11/18 10:52 metoclopramide [From Reglan] Allergy Abdominal Verified 05/11/18 10:52 Pain paclitaxel [From Taxol] Allergy Hives Verified 05/11/18 10:52 Sulfa (Sulfonamide Allergy Unknown Verified 05/11/18 10:52 Antibiotics) Reaction Details sulfamethoxazole Allergy Hives Verified 05/11/18 10:52 [From Bactrim] trimethoprim [From Bactrim] Allergy Hives Verified 05/11/18 10:52 nalbuphine [From Nubain] AdvReac Rash Verified 05/11/18 10:52 paroxetine [From Paxil] AdvReac Vomiting Verified 05/11/18 10:52 tramadol AdvReac Rash Verified 05/11/18 10:52 "metal" Allergy Swelling Uncoded 05/02/18 09:48 zepeda Allergy Nausea And Uncoded 05/02/18 09:48 Vomiting PMH/Surg Hx/FS Hx/Imm Hx Endocrine/Hematology History: Reports: Hx Diabetes - type 2 dm on insulin, Hx Anemia Denies: Hx Thyroid Disease, Other Endocrine/Hematological Disorders Cardiovascular History: Reports: Hx Angina, Hx Hypercholesterolemia, Other Cardiovascular Problems/Disorders - vasculitis. tachycardia Denies: Hx Coronary Artery Disease, Hx Hypertension - ON BP MEDS FOR TACHY, Hx Myocardial Infarction, Hx Pacemaker/ICD, Hx Peripheral Vascular Disease, Hx Valvular Heart Disease Respiratory History: Reports: Hx Asthma, Hx Sleep Apnea Denies: Hx Chronic Obstructive Pulmonary Disease (COPD), Other Respiratory Problems/Disorders GI History: Reports: Hx Crohn's Disease, Hx Gastroesophageal Reflux Disease, Hx Irritable Bowel, Other GI Disorders - gastroparesis Denies: Hx Ulcer History: Denies: Hx Dialysis, Hx Renal Disease, Other Problems/Disorders Musculoskeletal History: Reports: Hx Arthritis - back and knees, Other Musculoskeletal History - Ulnar nerve compression Right arm Denies: Hx Osteoporosis Sensory History: Reports: Hx Contacts or Glasses - glasses Denies: Hx Legally Blind, Hx Deafness, Hx Hearing Aid Opthamlomology History: Reports: Hx Contacts or Glasses - glasses Denies: Hx Legally Blind Neurological History: Reports: Hx Headaches, Hx Migraine Denies: Hx Seizures, Hx Transient Ischemic Attacks (TIA), Other Neuro Impairments/Disorders Psychiatric History: Reports: Hx Anxiety, Hx Depression, Hx Panic Disorder - PTSD, Hx Post Traumatic Stress Disorder, Hx Inpatient Treatment, Hx Community Mental Health Tx, Hx Suicide Attempt, Other Psychiatric Issues/Disorders - Borderline Personality Disorder Denies: Hx Attention Deficit Hyperactivity Disorder, Hx Eating Disorder, Hx Schizophrenia, Hx Bipolar Disorder, Hx of Violent Episodes Against Others - Surgical History Surgery Procedure, Year, and Place: Cholecystectomy [facility] [place]. Cardiac Catherterization-NO STENT [facility] [place] 2005, 2016 [facility] [place],. ulnar nerve release 2017, [facility] [place] Hx Anesthesia Reactions: No - Immunization History Date of Tetanus Vaccine: utd Date of Influenza Vaccine: fall 2016 Infectious Disease History: No Infectious Disease History: Reports: Hx of Known/Suspected MRSA - treated. noncarrier now Denies: Hx Hepatitis, Hx Human Immunodeficiency Virus (HIV), Traveled Outside the [place] in Last 30 Days - Family History Known Family History: Positive: Cardiac Disease, Diabetes, Other - blod clots Negative: Hypertension - Social History Alcohol Use: None Hx Substance Use: Yes Substance Use Type: Reports: Marijuana Substance Use Comment - Amount & Last Used: USED FOR PAIN MANAGMENT. Hx Tobacco Use: Yes Smoking Status (MU): Light Every Day Tobacco Smoker Type: Cigarettes Amount Used/How Often: 5 cigarettes/day Length of Time of Smoking/Using Tobacco: 4 CIG/DAY 2 YEARS Have You Smoked in the Last Year: Yes - 04/05/18 Review of Systems Constitutional: Negative Eyes: Negative ENT: Negative Positive: Chest Pain Respiratory: Negative Gastrointestinal: Negative Genitourinary: Negative Musculoskeletal: Negative Skin: Negative Neurological: Negative Psychological: Normal All Other Systems Reviewed And Are Negative: Yes Physical Exam - Summary Physical Exam Summary: Pain not reducible left side pain not reproducible with palpation, movement of left upper extremity or contraction of pectoral muscles. Lungs clear to auscultation bilaterally. Rate regular. Triage Information Reviewed: Yes Vital Signs On Initial Exam: Initial Vitals Temp Pulse Resp BP Pulse Ox 98 F 80 20 108/74 96 07/19/18 14:43 07/19/18 14:43 07/19/18 14:43 07/19/18 14:43 07/19/18 14:43 Vital Signs Reviewed: Yes Appearance: Positive: Well-Appearing Skin: Positive: Warm Head/Face: Positive: Normal Head/Face Inspection Eyes: Positive: Normal Neck: Positive: Supple Respiratory/Lung Sounds: Positive: Clear to Auscultation Cardiovascular: Positive: Normal Abdomen Description: Positive: Nontender Musculoskeletal: Positive: Normal Neurological: Positive: Normal Psychiatric: Positive: Normal AVPU Assessment: Alert - Butch Coma Scale Best Eye Response: 4 - Spontaneous Best Motor Response: 6 - Obeys Commands Best Verbal Response: 5 - Oriented Coma Scale Total: 15 Diagnostics - Vital Signs Vital Signs Temp Pulse Resp BP Pulse Ox 07/19/18 20:00 69 14 90 07/19/18 19:44 73 13 112/83 98 07/19/18 18:16 97.4 F 79 18 93/65 100 07/19/18 16:18 96.5 F 82 18 111/63 100 07/19/18 14:43 98 F 80 20 108/74 96 - Laboratory Lab Results: Lab Results 07/19/18 07/19/18 07/19/18 Range/Units 15:55 15:55 15:55 WBC 20.9 H (3.5-10.8) 10^3/ul RBC 5.07 (4.00-5.40) 10^6/ul Hgb 14.6 (12.0-16.0) g/dl Hct 44 (35-47) % MCV 87 (80-97) fL MCH 29 (27-31) pg MCHC 33 (31-36) g/dl RDW 14 (10.5-15) % Plt Count 436 (150-450) 10^3/ul MPV 6.5 L (7.4-10.4) fL Neut % (Auto) 75.9 % Lymph % (Auto) 16.1 % [place] % (Auto) 5.4 % Eos % (Auto) 2.1 % Baso % (Auto) 0.5 % Absolute Neuts (auto) 15.9 H (1.5-7.7) 10^3/ul Absolute Lymphs (auto) 3.4 (1.0-4.8) 10^3/ul Absolute Monos (auto) 1.1 H (0-0.8) 10^3/ul Absolute Eos (auto) 0.4 (0-0.6) 10^3/ul Absolute Basos (auto) 0.1 (0-0.2) 10^3/ul Absolute Nucleated RBC 0 10^3/ul Nucleated RBC % 0.1 Sodium 136 (135-145) mmol/L Potassium 4.0 (3.5-5.0) mmol/L Chloride 105 (101-111) mmol/L Carbon Dioxide 23 (22-32) mmol/L Anion Gap 8 (2-11) mmol/L BUN 14 (6-24) mg/dL Creatinine 0.62 (0.51-0.95) mg/dL Est GFR ( Amer) 132.5 (>60) Est GFR (Non-Af Amer) 109.5 (>60) BUN/Creatinine Ratio 22.6 H (8-20) Glucose 124 H (70-100) mg/dL Lactic Acid 0.7 (0.5-2.0) mmol/L Calcium 9.7 (8.6-10.3) mg/dL Total Bilirubin 0.40 (0.2-1.0) mg/dL AST 12 L (13-39) U/L ALT 10 (7-52) U/L Alkaline Phosphatase 110 H (34-104) U/L Troponin I 0.01 (<0.04) ng/mL Total Protein 7.7 (6.4-8.9) g/dL Albumin 3.7 (3.2-5.2) g/dL Globulin 4.0 (2-4) g/dL Albumin/Globulin Ratio 0.9 L (1-3) Lipase < 10 L (11.0-82.0) U/L 07/19/ Range/Units 19:12 WBC (3.5-10.8) 10^3/ul RBC (4.00-5.40) 10^6/ul Hgb (12.0-16.0) g/dl Hct (35-47) % MCV (80-97) fL MCH (27-31) pg MCHC (31-36) g/dl RDW (10.5-15) % Plt Count (150-450) 10^3/ul MPV (7.4-10.4) fL Neut % (Auto) % Lymph % (Auto) % [place] % (Auto) % Eos % (Auto) % Baso % (Auto) % Absolute Neuts (auto) (1.5-7.7) 10^3/ul Absolute Lymphs (auto) (1.0-4.8) 10^3/ul Absolute Monos (auto) (0-0.8) 10^3/ul Absolute Eos (auto) (0-0.6) 10^3/ul Absolute Basos (auto) (0-0.2) 10^3/ul Absolute Nucleated RBC 10^3/ul Nucleated RBC % Sodium (135-145) mmol/L Potassium (3.5-5.0) mmol/L Chloride (101-111) mmol/L Carbon Dioxide (22-32) mmol/L Anion Gap (2-11) mmol/L BUN (6-24) mg/dL Creatinine (0.51-0.95) mg/dL Est GFR ( Amer) (>60) Est GFR (Non-Af Amer) (>60) BUN/Creatinine Ratio (8-20) Glucose (70-100) mg/dL Lactic Acid (0.5-2.0) mmol/L Calcium (8.6-10.3) mg/dL Total Bilirubin (0.2-1.0) mg/dL AST (13-39) U/L ALT (7-52) U/L Alkaline Phosphatase (34-104) U/L Troponin I 0.00 (<0.04) ng/mL Total Protein (6.4-8.9) g/dL Albumin (3.2-5.2) g/dL Globulin (2-4) g/dL Albumin/Globulin Ratio (1-3) Lipase (11.0-82.0) U/L Result Diagrams: 07/19/18 15:55 07/19/18 15:55 Lab Statement: Any lab studies that have been ordered have been reviewed, and results considered in the medical decision making process. Chest Pain Course/Dx - Course Course Of Treatment: Patient complains of left-sided chest pain radiating to left shoulder starting last night, and migraine 3 days. Chest pain described as constant, progressive, rated 6/10, throbbing. Patient has history of migraines, usually treated with Fioricet and sumatriptan. No relief with standard medications at this time. Denies fever, cough, sore throat, SOB, N/V/D , abdominal pain, change in urine, change in BM, trauma. Denies history of blood clots, cancer, , recent surgery or trauma, unilateral leg pain, immobility, long travel. Medical history is vasculitis, DM, HDL, HTN, migraines. Positive family cardiac history. Positive smoker. Denies illegal or illegal stimulant use. Physical exam:Pain not reducible left side pain not reproducible with palpation, movement of left upper extremity or contraction of pectoral muscles. Lungs clear to auscultation bilaterally. Rate regular. Vital signs within normal limits. WBC 20.9, labs otherwise unremarkable. Chest x-ray unremarkable. EKG unremarkable. Heart score 2. Recommend follow- up with primary care. Migraine improved with migraine cocktail. - Diagnoses Provider Diagnoses: Chest pain, Migraine Discharge - Sign-Out/Discharge Documenting (check all that apply): Patient Departure - Discharge Plan Condition: Stable Disposition: HOME Patient Education Materials: Chest Pain (ED), Migraine Headache (ED), Chest Wall Pain (ED) Referrals: Kimberlyn Dhillon MD [Primary Care Provider] - Additional Instructions: Take ibuprofen for chest pain. Follow-up with primary care for further evaluation of chest pain to include stress test. Return to the ED for any new or worsening symptoms. - Billing Disposition and Condition Condition: STABLE Disposition: Home
[2018-07-19] MEDS ORDERED: Ketorolac INJ* 30 MG/ML 1 ML VIAL IV ONE (21:11)
[2018-07-19 22:25] VITALS: BP 117/83
== END 2018-07-19 22:24 | disposition home or self-care (01) ==
LOC: ED 14:42
DX: R07.89 Other chest pain (principal); G43.909 Migraine, unspecified, not intractable, without status migrainosus; E11.9 Type 2 diabetes mellitus without complications; Z79.4 Long term (current) use of insulin; Z91.030 Bee allergy status; Z88.5 Allergy status to narcotic agent; Z88.2 Allergy status to sulfonamides; Z88.8 Allergy status to other drugs, medicaments and biological substances; Z91.048 Other nonmedicinal substance allergy status; Z82.49 Family history of ischemic heart disease and other diseases of the circulatory system; Z83.3 Family history of diabetes mellitus; F17.210 Nicotine dependence, cigarettes, uncomplicated
CPT/HCPCS: 36415; 71046; 80053; 83605; 83690; 84484; 85025; 93005; 96374; 96375; 99282; A9270-GY; J0780; J1885; J2765

== ENCOUNTER 2018-12-14 12:45 | Emergency (ER) | payer OTHER ==
--- NOTE | 2018-12-14 18:24 | ED ---
Abdominal Pain/Female - HPI Summary HPI Summary: A 38 y/o female brought in by [facility] ambulance presents to [facility] with a chief complaint of abdominal pain for the last four days. She reports pain in both sides of her abdomen. She also reports that she has vomited and had diarrhea for 4-5 times along with nausea. She states that she did not get an appendectomy. - History of Current Complaint Chief Complaint: EDAbdPain Stated Complaint: ABD PAIN PER EMS Time Seen by Provider: 12/14/18 17:43 Hx Obtained From: Patient Hx Last Menstrual Period: nexplanon Onset/Duration: Sudden Onset, Lasting Days, Still Present Timing: Days Severity Initially: Severe Severity Currently: Severe Pain Intensity: 8 Pain Scale Used: 0-10 Numeric Location: Diffuse Radiates: No Character: Other: - unable to describe Aggravating Factor(s): Nothing Alleviating Factor(s): Nothing Associated Signs and Symptoms: Positive: Nausea, Vomiting, Diarrhea. Negative: Fever Allergies/Adverse Reactions: Allergies Allergy/AdvReac Type Severity Reaction Status Date / Time Adhesive Tape Allergy Rash Verified 10/27/18 14:26 asenapine Allergy Rash Verified 10/27/18 14:26 bee venom protein (honey bee) Allergy Anaphylatic Verified 10/27/18 14:26 Shock lurasidone [From Latuda] Allergy Hives Verified 10/27/18 14:26 metoclopramide [From Reglan] Allergy Abdominal Verified 10/27/18 14:26 Pain paclitaxel [From Taxol] Allergy Hives Verified 10/27/18 14:26 Sulfa (Sulfonamide Allergy Unknown Verified 10/27/18 14:26 Antibiotics) Reaction Details sulfamethoxazole Allergy Hives Verified 10/27/18 14:26 [From Bactrim] trimethoprim [From Bactrim] Allergy Hives Verified 10/27/18 14:26 nalbuphine [From Nubain] AdvReac Rash Verified 10/27/18 14:26 paroxetine [From Paxil] AdvReac Vomiting Verified 10/27/18 14:26 tramadol AdvReac Rash Verified 10/27/18 14:26 "metal" Allergy Swelling Uncoded 05/02/18 09:48 zepeda Allergy Nausea And Uncoded 05/02/18 09:48 Vomiting PMH/Surg Hx/FS Hx/Imm Hx Endocrine/Hematology History: Reports: Hx Diabetes - type 2 dm on insulin, Hx Anemia Denies: Hx Thyroid Disease, Other Endocrine/Hematological Disorders Cardiovascular History: Reports: Hx Angina, Hx Hypercholesterolemia, Other Cardiovascular Problems/Disorders - vasculitis. tachycardia Denies: Hx Coronary Artery Disease, Hx Hypertension - ON BP MEDS FOR TACHY, Hx Myocardial Infarction, Hx Pacemaker/ICD, Hx Peripheral Vascular Disease, Hx Valvular Heart Disease Respiratory History: Reports: Hx Asthma, Hx Sleep Apnea Denies: Hx Chronic Obstructive Pulmonary Disease (COPD), Other Respiratory Problems/Disorders GI History: Reports: Hx Crohn's Disease, Hx Gastroesophageal Reflux Disease, Hx Irritable Bowel, Other GI Disorders - gastroparesis Denies: Hx Ulcer History: Denies: Hx Dialysis, Hx Renal Disease, Other Problems/Disorders Musculoskeletal History: Reports: Hx Arthritis - back and knees, Other Musculoskeletal History - Ulnar nerve compression Right arm Denies: Hx Osteoporosis Sensory History: Reports: Hx Contacts or Glasses - glasses Denies: Hx Legally Blind, Hx Deafness, Hx Hearing Aid Opthamlomology History: Reports: Hx Contacts or Glasses - glasses Denies: Hx Legally Blind Neurological History: Reports: Hx Headaches, Hx Migraine Denies: Hx Seizures, Hx Transient Ischemic Attacks (TIA), Other Neuro Impairments/Disorders Psychiatric History: Reports: Hx Anxiety, Hx Depression, Hx Panic Disorder - PTSD, Hx Post Traumatic Stress Disorder, Hx Inpatient Treatment, Hx Community Mental Health Tx, Hx Suicide Attempt, Other Psychiatric Issues/Disorders - Borderline Personality Disorder Denies: Hx Attention Deficit Hyperactivity Disorder, Hx Eating Disorder, Hx Schizophrenia, Hx Bipolar Disorder, Hx of Violent Episodes Against Others - Surgical History Surgery Procedure, Year, and Place: Cholecystectomy [facility]. Cardiac Catherterization-NO STENT [facility] 2005, 2017 [facility],. ulnar nerve release 2018, [facility] Hx Anesthesia Reactions: No - Immunization History Date of Tetanus Vaccine: utd Date of Influenza Vaccine: fall 2016 Infectious Disease History: No Infectious Disease History: Reports: Hx of Known/Suspected MRSA - treated. noncarrier now Denies: Hx Hepatitis, Hx Human Immunodeficiency Virus (HIV), Traveled Outside the [place] in Last 30 Days - Family History Known Family History: Positive: Cardiac Disease, Diabetes, Other - blod clots Negative: Hypertension - Social History Alcohol Use: None Hx Substance Use: Yes Substance Use Type: Reports: Marijuana Substance Use Comment - Amount & Last Used: USED FOR PAIN MANAGMENT. Hx Tobacco Use: Yes Smoking Status (MU): Current Every Day Smoker Type: Cigarettes Amount Used/How Often: 2 cigarettes/day Length of Time of Smoking/Using Tobacco: 4 CIG/DAY 2 YEARS Have You Smoked in the Last Year: Yes - 04/05/18 Review of Systems Negative: Fever Positive: Abdominal Pain, Vomiting, Diarrhea, Nausea All Other Systems Reviewed And Are Negative: Yes Physical Exam - Summary Physical Exam Summary: Appearance: Well appearing, no pain distress Skin: warm, dry, reflects adequate perfusion Head/face: normal Eyes: EOMI, [place] ENT: normal Neck: supple, non-tender Respiratory: CTA, breath sounds present Cardiovascular: RRR, pulses symmetrical Abdomen: RLQ tenderness, Musculoskeletal: normal, strength/ROM intact Neuro: normal, sensory motor intact, A&Ox3 Triage Information Reviewed: Yes Vital Signs On Initial Exam: Initial Vitals Temp Pulse Resp BP Pulse Ox 98.6 F 96 16 104/78 96 12/14/18 12:52 12/14/18 12:52 12/14/18 12:52 12/14/18 12:52 12/14/18 12:52 Vital Signs Reviewed: Yes Diagnostics - Vital Signs Vital Signs Temp Pulse Resp BP Pulse Ox 12/14/18 17:27 98.7 F 96 16 127/72 99 12/14/18 15:39 97.5 F 99 18 130/33 97 12/14/18 12:52 98.6 F 96 16 104/78 96 - Laboratory Result Diagrams: 12/14/18 18:51 12/14/18 18:51 Lab Statement: Any lab studies that have been ordered have been reviewed, and results considered in the medical decision making process. Abdominal Pain Fem Course/Dx - Course Course Of Treatment: A 38 y/o female brought in by [facility] ambulance presents to [facility] with a chief complaint of abdominal pain for the last four days. The physical exam revealed RLQ tenderness. In the ED course the patient was given sodium chloride IV and Iodixanol IV. Blood work and chemistries obtained. The patient will be signed out to Dr. Ramirez at 22:00 12/14/[address] abdomen/ pelvis and labs. - Diagnoses Differential Diagnosis: Positive: Appendicitis, Diverticulitis Provider Diagnoses: Abdominal pain Discharge - Sign-Out/Discharge Documenting (check all that apply): Sign-Out Patient Signing out patient TO: Lauro Ashley chambers CT abd/pel and labs Patient Received Moderate/Deep Sedation with Procedure: No - Discharge Plan Condition: Stable Referrals: Kimberlyn Dhillon MD [Primary Care Provider] - - Billing Disposition and Condition Condition: STABLE - Attestation Statements Document Initiated by Scribe: Yes Documenting Scribe: Andrey Kumar Provider For Whom Scribe is Documenting (Include Credential): Gene Gonzalez MD Scribe Attestation: IAndrey, scribed for Gene Gonzalez MD on 12/14/18 at 2146. Scribe Documentation Reviewed: Yes Provider Attestation: The documentation as recorded by the Andrey ruelas accurately reflects the service I personally performed and the decisions made by Gene bustillos MD Status of Scribe Document: Viewed
[2018-12-14] MEDS ORDERED: NS 0.9% 1000 ML** 1,000 ML IV SCH (18:30)
[2018-12-14 19:13] LABS: Hematocrit 44 % (33-41); Hemoglobin 14.5 g/dL (12.0-16.0); Mean Corpuscular HGB Conc 33 g/dL (31-36); Mean Corpuscular Hemoglobin 29 pg (27-31); Mean Corpuscular Volume 89 fL (80-97); Mean Platelet Volume 6.7 fL (7.4-10.4); Platelet Count 455 10^3/uL (150-450); Red Blood Count 4.94 10^6 /uL (3.70-4.87); Red Cell Distribution Width 14 % (10.5-15); White Blood Count 19.5 10^3/uL (3.5-10.8)
[2018-12-14 19:20] LABS: Albumin 4.2 g/dL (3.2-5.2); Anion Gap 13 mmol/L (2-11); CO2 Carbon Dioxide 20 mmol/L (22-32); Chloride 103 mmol/L (101-111); Potassium 4.4 mmol/L (3.5-5.0); Sodium 136 mmol/L (135-145)
[2018-12-14 19:21] LABS: Activated Partial Thrombo Time 36.8 seconds (26.0-36.3); INR 1.15 (0.82-1.09)
[2018-12-14 19:26] LABS: Troponin I 0.01 ng/mL (<0.04)
[2018-12-14 19:27] LABS: ALT 11 U/L (7-52); AST 14 U/L (13-39); Albumin/Globulin Ratio 0.9 (1-3); Alkaline Phosphatase 131 U/L (34-104); BUN/Creatinine Ratio 16.5 (8-20); Blood Urea Nitrogen 14 mg/dL (6-24); C Reactive Protein 29.09 mg/L (<8.01); EGFR African American 91.6 (>60); EGFR Non-African American 75.7 (>60); Globulin 4.6 g/dL (2-4); Glucose 175 mg/dL (70-100); Total Protein 8.8 g/dL (6.4-8.9)
[2018-12-14 19:30] LABS: HCG Pregnancy < 0.60 mIU/mL
[2018-12-14 19:44] LABS: ABS Basophils 0.1 10^3/ul (0-0.2); ABS Eosinophils 0.2 10^3/ul (0-0.6); ABS Lymphocytes 5.2 10^3/ul (1.0-4.8); ABS Monocytes 1.4 10^3/ul (0-0.8); ABS Neutrophils 12.6 10^3/ul (1.5-7.7); ABS Nucleated RBC 0 10^3/ul; Eosinophil % 0.9 %; Lymphocyte % 26.7 %; Nucleated Red Blood Cells % 0
[2018-12-14] MEDS ORDERED: Iodixanol* (CONTRAST) 320 MG/ML 100 ML SDV IV ONE (20:22)
[2018-12-14] MEDS ORDERED: Morphine 4 MG/ML VIAL (1 ml) 4 MG/ML VIAL IV ONE (22:04)
[2018-12-14 22:08] LABS: Urine Appearance Cloudy; Urine Bilirubin 1+ (Negative); Urine Blood Negative (Negative); Urine Color Amber; Urine Glucose Negative (Negative); Urine Ketones 1+ (Negative); Urine Nitrite Negative (Negative); Urine Protein 1+(30 mg/dL) (Negative); Urine Specific Gravity 1.028 (1.010-1.030); Urine Urobilinogen Negative (Negative)
--- NOTE | 2018-12-14 22:13 | ED ---
Progress - Progress Note Progress Note: This patient is signed out from Dr. Gonzalez at [address] A/P. CT A/P reveals, as per radiologist: No acute intra abdominal pelvic findings. Re-Evaluation - Re-Evaluation 1113 Re-Evaluation Time: 23:13 Comment: Denies vaginal symptoms, urinary symptoms. Patient is not sexually active. C/o suprapubic pain. Denies RLQ. Previous Cholecystectomy. Course/Dx - Course Course Of Treatment: Assumed care of patient pending CT scan. Elevated WBC but no distress. Mild discomfort in the suprapubic area. Patient not sexually active. Urine is grossly positive. No evidence for pyelonephritis. CT scan is negative for acute inflammatory pathology. IV antibiotics given and discharged on oral antibiotic. Follow-up with primary care physician. - Diagnoses Provider Diagnoses: Acute cystitis, Suprapubic pain Discharge - Sign-Out/Discharge Documenting (check all that apply): Patient Departure - discharge Patient Received Moderate/Deep Sedation with Procedure: No - Discharge Plan Condition: Improved Disposition: HOME Prescriptions: Cephalexin CAP* [Keflex CAP*] 500 mg PO TID #15 cap Phenazopyridine 200 mg (NF) [Pyridium 200 MG tab *] 200 mg PO TID #9 tab Patient Education Materials: Urinary Tract Infection in Women (ED) Referrals: Kimberlyn Dhillon MD [Primary Care Provider] - Additional Instructions: Call your doctor first thing in the morning to schedule prompt follow-up. Drink plenty of fluids, cranberry juice may help. Return with fever, vomiting, uncontrolled pain, back pain, worse or other concerns. Tylenol or ibuprofen as needed for discomfort. - Billing Disposition and Condition Condition: IMPROVED Disposition: Home - Attestation Statements Document Initiated by Sirishaibarsh: Yes Documenting Scribe: Holli Gomez Provider For Whom Natalee is Documenting (Include Credential): Lauro Ramirez MD Scribe Attestation: Holli Richmond, scribed for Lauro Ramirez MD on 12/15/18 at 0329. Scribe Documentation Reviewed: Yes Provider Attestation: The documentation as recorded by the Holli ruelas accurately reflects the service I personally performed and the decisions made by me, Lauro Ramirez MD Status of Scribe Document: Viewed
[2018-12-14 22:25] LABS: Urine Bacteria 3+ (Absent); Urine White Blood Cell 2 (Absent)
[2018-12-14 22:26] LABS: Urine Squamous Epithelial Cell Present (Absent)
[2018-12-14] MEDS ORDERED: Ketorolac INJ* 30 MG/ML 1 ML VIAL IV PUSH ONE (23:14)
[2018-12-14] MEDS ORDERED: cefTRIAXone(*) 2 GM in NS 0.9% 100 ML* 100 ML IVPB ONE (23:14)
[2018-12-15 00:16] VITALS: BP 129/78
== END 2018-12-15 00:15 | disposition home or self-care (01) ==
LOC: ED 12:45
DX: N30.00 Acute cystitis without hematuria (principal); E11.9 Type 2 diabetes mellitus without complications; E78.00 Pure hypercholesterolemia, unspecified; D64.9 Anemia, unspecified; R00.0 Tachycardia, unspecified; J45.909 Unspecified asthma, uncomplicated; K50.90 Crohn's disease, unspecified, without complications; K21.9 Gastro-esophageal reflux disease without esophagitis; F41.9 Anxiety disorder, unspecified; F32.9 Major depressive disorder, single episode, unspecified; F17.210 Nicotine dependence, cigarettes, uncomplicated; Z88.8 Allergy status to other drugs, medicaments and biological substances; Z91.048 Other nonmedicinal substance allergy status; Z88.2 Allergy status to sulfonamides; Z88.5 Allergy status to narcotic agent; Z79.4 Long term (current) use of insulin
CPT/HCPCS: 36415; 74177; 80053; 81003; 81015; 83605; 83690; 84484; 84702; 85025; 85060; 85610; 85730; 86140; 87086; 96361; 96365; 96375; 99283; J0696; J1885; J2270; Q9967

== ENCOUNTER 2018-12-18 11:24 | Emergency (ER) | payer OTHER ==
[2018-12-18] MEDS ORDERED: Ketorolac INJ* 30 MG/ML 1 ML VIAL IV PUSH ONE (11:36)
[2018-12-18] MEDS ORDERED: Fluconazole 150 MG TAB PO ONE (11:37)
--- NOTE | 2018-12-18 11:41 | ED ---
Back Pain - HPI Summary HPI Summary: This patient is a 38 year old F brought in by EMS with a chief complaint of bilateral lower back pain since 4 days ago. The patient rates the pain 8/10 in severity. Symptoms aggravated by lying down. Patient reports itching and burning in the genital area, subjective fever, lower abd pain, erythema of groin , difficulty eating, and diarrhea. Patient denies CP or SOB. The patient was here four days ago with a suspected UTI and was given Keflex. Her sugar was 149 this morning. No recent sexual activity, last activity 2 years ago. Allergy to Tramadol. PMHX IDDM. - History of Current Complaint Stated Complaint: UTI/BACK PAIN PER EMS Time Seen by Provider: 12/18/18 11:29 Hx Obtained From: Patient Hx Last Menstrual Period: nexplanon Onset/Duration: Gradual Onset, Lasting Days Onset/Duration: Started Days Ago Back Pain Location: Is Discrete @ - lower back Severity Currently: Severe Pain Intensity: 8 Pain Scale Used: 0-10 Numeric Associated Signs And Symptoms: Positive: Redness, Fever, Abdominal Pain - Allergies/Home Medications Allergies/Adverse Reactions: Allergies Allergy/AdvReac Type Severity Reaction Status Date / Time Adhesive Tape Allergy Rash Verified 12/18/18 11:53 asenapine Allergy Rash Verified 12/18/18 11:53 bee venom protein (honey bee) Allergy Anaphylatic Verified 12/18/18 11:53 Shock lurasidone [From Latuda] Allergy Hives Verified 12/18/18 11:53 metoclopramide [From Reglan] Allergy Abdominal Verified 12/18/18 11:53 Pain paclitaxel [From Taxol] Allergy Hives Verified 12/18/18 11:53 Sulfa (Sulfonamide Allergy Unknown Verified 12/18/18 11:53 Antibiotics) Reaction Details sulfamethoxazole Allergy Hives Verified 12/18/18 11:53 [From Bactrim] trimethoprim [From Bactrim] Allergy Hives Verified 12/18/18 11:53 nalbuphine [From Nubain] AdvReac Rash Verified 12/18/18 11:53 paroxetine [From Paxil] AdvReac Vomiting Verified 12/18/18 11:53 tramadol AdvReac Rash Verified 12/18/18 11:53 "metal" Allergy Swelling Uncoded 12/18/18 11:53 zepeda Allergy Nausea And Uncoded 04/28/19 11:53 Vomiting PMH/Surg Hx/FS Hx/Imm Hx Endocrine/Hematology History: Reports: Hx Diabetes - type 2 dm on insulin, Hx Anemia Denies: Hx Thyroid Disease, Other Endocrine/Hematological Disorders Cardiovascular History: Reports: Hx Angina, Hx Hypercholesterolemia, Other Cardiovascular Problems/Disorders - vasculitis. tachycardia Denies: Hx Coronary Artery Disease, Hx Hypertension - ON BP MEDS FOR TACHY, Hx Myocardial Infarction, Hx Pacemaker/ICD, Hx Peripheral Vascular Disease, Hx Valvular Heart Disease Respiratory History: Reports: Hx Asthma, Hx Sleep Apnea Denies: Hx Chronic Obstructive Pulmonary Disease (COPD), Other Respiratory Problems/Disorders GI History: Reports: Hx Crohn's Disease, Hx Gastroesophageal Reflux Disease, Hx Irritable Bowel, Other GI Disorders - gastroparesis Denies: Hx Ulcer History: Denies: Hx Dialysis, Hx Renal Disease, Other Problems/Disorders Musculoskeletal History: Reports: Hx Arthritis - back and knees, Other Musculoskeletal History - Ulnar nerve compression Right arm Denies: Hx Osteoporosis Sensory History: Reports: Hx Contacts or Glasses - glasses Denies: Hx Legally Blind, Hx Deafness, Hx Hearing Aid Opthamlomology History: Reports: Hx Contacts or Glasses - glasses Denies: Hx Legally Blind Neurological History: Reports: Hx Headaches, Hx Migraine Denies: Hx Seizures, Hx Transient Ischemic Attacks (TIA), Other Neuro Impairments/Disorders Psychiatric History: Reports: Hx Anxiety, Hx Depression, Hx Post Traumatic Stress Disorder, Hx Inpatient Treatment, Hx Community Mental Health Tx, Hx Suicide Attempt, Other Psychiatric Issues/Disorders - Borderline Personality Disorder Denies: Hx Attention Deficit Hyperactivity Disorder, Hx Eating Disorder, Hx Schizophrenia, Hx Bipolar Disorder, Hx of Violent Episodes Against Others - Surgical History Surgery Procedure, Year, and Place: Cholecystectomy [facility] in [place]. Cardiac Catherterization-NO STENT [facility] 2005, [place] [facility], [facility] Hx Anesthesia Reactions: No - Immunization History Date of Tetanus Vaccine: utd Date of Influenza Vaccine: fall 2016 Infectious Disease History: Reports: Hx of Known/Suspected MRSA - treated. noncarrier now Denies: Hx Hepatitis, Hx Human Immunodeficiency Virus (HIV) - Family History Known Family History: Positive: Cardiac Disease, Diabetes, Other - blod clots Negative: Hypertension - Social History Alcohol Use: None Hx Substance Use: Yes Substance Use Type: Reports: Marijuana Substance Use Comment - Amount & Last Used: USED FOR PAIN MANAGMENT. Hx Tobacco Use: Yes Smoking Status (MU): Current Every Day Smoker Type: Cigarettes Amount Used/How Often: 2 cigarettes/day Length of Time of Smoking/Using Tobacco: 4 CIG/DAY 2 YEARS Have You Smoked in the Last Year: Yes - 04/05/18 Review of Systems Positive: Fever Negative: Chest Pain Negative: Shortness Of Breath Positive: Abdominal Pain - lower, Diarrhea, Other - difficulty eating Positive: burning, dysuria, other - pruritus Positive: Myalgia - bilateral lower back Positive: Rash - groin All Other Systems Reviewed And Are Negative: Yes Physical Exam - Summary Physical Exam Summary: Appearance: morbidly obese woman, no pain distress Skin: warm, dry, reflects adequate perfusion. Blood sugar sensor on the left arm. Head/face: normal Eyes: EOMI, RICO ENT: mucous membranes moist Neck: supple, non-tender Respiratory: CTA, breath sounds present Cardiovascular: RRR, pulses symmetrical Abdomen: non-tender, soft Bowel Sounds: present : Intertrigo of the groin region, erythema of the groin. Musculoskeletal: normal, strength/ROM intact. No reproducible back pain with palpation. Neuro: normal, sensory motor intact, A&Ox3 Triage Information Reviewed: Yes Vital Signs Reviewed: Yes Diagnostics - Laboratory Result Diagrams: 12/18/18 11:42 12/18/18 11:42 Lab Statement: Any lab studies that have been ordered have been reviewed, and results considered in the medical decision making process. Back Pain Course/Dx - Course Course Of Treatment: Patient was seen recently and had CT of the abdomen and ultrasound. Her blood work had shown a leukocytosis. This is improved today. She complains of back pain but her urine was negative on culture. She does have yeast infection of his treated with Diflucan and will be treated with topical nystatin. Her back pain was treated with improvement. She'll follow- up with her primary care physician with a call tomorrow for reevaluation. - Diagnoses Differential Diagnosis/HQI/PQRI: Positive: Other - Pyelonephritis, intertrigo, fasciitis/cellulitis, ovarian cyst Provider Diagnoses: Low back pain, Candidal intertrigo Discharge - Sign-Out/Discharge Documenting (check all that apply): Patient Departure - discharge Patient Received Moderate/Deep Sedation with Procedure: No - Discharge Plan Condition: Improved Disposition: HOME Prescriptions: Cyclobenzaprine TAB* [Flexeril 10 MG TAB*] 10 mg PO BID PRN #14 tab PRN Reason: back pain Nystatin TOP POWDER* 1 applic TOPICAL TID 7 Days #1 btl Patient Education Materials: Yeast Infection (ED), Acute Low Back Pain (ED) Referrals: Kimberlyn Dhillon MD [Primary Care Provider] - Additional Instructions: Take Tylenol or ibuprofen for baseline pain. Cyclobenzaprine can be used for muscle relaxation and worsened discomfort. This can cause drowsiness, do not drive while taking. Follow your blood sugars and return with any rising blood sugars. Return with uncontrolled pain, worsening, new symptoms or other concerns. Follow-up with your primary care doctor tomorrow. - Billing Disposition and Condition Condition: IMPROVED Disposition: Home - Attestation Statements Document Initiated by Natalee: Yes Documenting Scribe: Shaan Zavala Provider For Whom Natalee is Documenting (Include Credential): Lauro Ramirez MD Scribe Attestation: Shaan Richmond, scribed for Lauro Ramirez MD on 12/18/18 at 1818. Scribe Documentation Reviewed: Yes Provider Attestation: The documentation as recorded by the Shaan ruelas accurately reflects the service I personally performed and the decisions made by , Lauro Ramirez MD Status of Scribe Document: Viewed
[2018-12-18 11:48] LABS: ABS Basophils 0.1 10^3/ul (0-0.2); ABS Eosinophils 0.1 10^3/ul (0-0.6); ABS Lymphocytes 3.2 10^3/ul (1.0-4.8); ABS Nucleated RBC 0 10^3/ul; Eosinophil % 0.7 %; Hematocrit 41 % (33-41); Hemoglobin 13.5 g/dL (12.0-16.0); Lymphocyte % 23.9 %; Mean Corpuscular HGB Conc 33 g/dL (31-36); Mean Corpuscular Hemoglobin 30 pg (27-31); Mean Corpuscular Volume 89 fL (80-97); Mean Platelet Volume 6.6 fL (7.4-10.4); Nucleated Red Blood Cells % 0; Platelet Count 379 10^3/uL (150-450); Red Blood Count 4.58 10^6 /uL (3.70-4.87); Red Cell Distribution Width 14 % (10.5-15); White Blood Count 13.3 10^3/uL (3.5-10.8)
[2018-12-18 12:04] LABS: BUN/Creatinine Ratio 12.1 (8-20); Calcium 9.4 mg/dL (8.6-10.3); EGFR African American 122.6 (>60); EGFR Non-African American 101.3 (>60); Potassium 3.7 mmol/L (3.5-5.0)
[2018-12-18 12:21] LABS: Urine Appearance Cloudy; Urine Bacteria Absent (Absent); Urine Bilirubin Negative (Negative); Urine Blood Negative (Negative); Urine Color Amber; Urine Glucose Negative (Negative); Urine Ketones Trace (Negative); Urine Nitrite Negative (Negative); Urine Protein 1+(30 mg/dL) (Negative); Urine Red Blood Cell 1+(3-5/hpf) (Absent); Urine Specific Gravity 1.028 (1.010-1.030); Urine Squamous Epithelial Cell Present (Absent); Urine Urobilinogen Negative (Negative); Urine White Blood Cell Trace(0-5/hpf) (Absent)
[2018-12-18] MEDS ORDERED: Cyclobenzaprine TAB* 10 MG PO ONE (12:27)
[2018-12-18] MEDS ORDERED: Ketorolac INJ* 60 MG/2 ML VIAL IM ONE (12:51)
[2018-12-18 13:25] VITALS: BP 117/81
== END 2018-12-18 13:23 | disposition home or self-care (01) ==
LOC: ED 11:24
DX: M54.5 Low back pain (principal); B37.2 Candidiasis of skin and nail; E11.9 Type 2 diabetes mellitus without complications; D64.9 Anemia, unspecified; E78.00 Pure hypercholesterolemia, unspecified; R00.0 Tachycardia, unspecified; J45.909 Unspecified asthma, uncomplicated; K21.9 Gastro-esophageal reflux disease without esophagitis; K50.90 Crohn's disease, unspecified, without complications; K58.9 Irritable bowel syndrome, unspecified; F41.9 Anxiety disorder, unspecified; F32.9 Major depressive disorder, single episode, unspecified; F17.210 Nicotine dependence, cigarettes, uncomplicated; Z79.4 Long term (current) use of insulin; Z88.8 Allergy status to other drugs, medicaments and biological substances; Z88.2 Allergy status to sulfonamides
CPT/HCPCS: 36415; 80048; 81003; 81015; 85025; 87086; 96372; 99282; A9270-GY; J1885

== ENCOUNTER 2018-12-19 15:39 | Inpatient (IN) | payer OTHER ==
[2018-12-19 16:37] LABS: ALT 12 U/L (7-52); AST 11 U/L (13-39); Albumin 4.2 g/dL (3.2-5.2); Alkaline Phosphatase 114 U/L (34-104); Anion Gap 9 mmol/L (2-11); BUN/Creatinine Ratio 10.7 (8-20); Blood Urea Nitrogen 8 mg/dL (6-24); CO2 Carbon Dioxide 21 mmol/L (22-32); Calcium 9.5 mg/dL (8.6-10.3); Chloride 104 mmol/L (101-111); EGFR African American 105.8 (>60); EGFR Non-African American 87.4 (>60); Globulin 4.4 g/dL (2-4); Glucose 197 mg/dL (70-100); Potassium 4.2 mmol/L (3.5-5.0); Sodium 134 mmol/L (135-145); Total Protein 8.6 g/dL (6.4-8.9)
[2018-12-19 16:38] LABS: ABS Basophils 0.1 10^3/ul (0-0.2); ABS Eosinophils 0.1 10^3/ul (0-0.6); ABS Neutrophils 9.6 10^3/ul (1.5-7.7); ABS Nucleated RBC 0 10^3/ul; Eosinophil % 0.6 %; Hematocrit 43 % (33-41); Hemoglobin 14.1 g/dL (12.0-16.0); Lymphocyte % 27.1 %; Mean Corpuscular HGB Conc 33 g/dL (31-36); Mean Corpuscular Hemoglobin 29 pg (27-31); Mean Corpuscular Volume 89 fL (80-97); Mean Platelet Volume 6.9 fL (7.4-10.4); Nucleated Red Blood Cells % 0; Platelet Count 394 10^3/uL (150-450); Red Blood Count 4.86 10^6 /uL (3.70-4.87); Red Cell Distribution Width 14 % (10.5-15); White Blood Count 14.8 10^3/uL (3.5-10.8)
--- NOTE | 2018-12-19 16:48 | ED ---
Psychiatric Complaint - HPI Summary HPI Summary: Patient is a 38 y/o F presenting to ED with complaints of SI. Patient states that SI onset this past weekend, 2-3 days ago, and have persisted. Patient states that her plan of suicide is to overdose. Patient has a history of suicide attempts via overdose. Last hospitalization for psychiatric care was around a year ago. She states that she has been taking her medications for her anxiety, depression, and diabetes. PMHx of bipolar disorder is noted as well. She denies alcohol or drug usage, she is a former smoker. Patient is accompanied by employee from [employer]. On triage, associated severity is rated 2/10 , nothing is noted to aggravate/alleviate Sx. Home medications and allergies are reviewed. - History Of Current Complaint Chief Complaint: EDSuicidal Time Seen by Provider: 12/19/18 15:43 Hx Obtained From: Patient Hx Last Menstrual Period: nexplanon Onset/Duration: Lasting Days - Sx onset this past weekend, 2-3 days ago, Still Present Timing: Days - Sx onset this past weekend, 2-3 days ago Severity Currently: Mild Character: Depressed Aggravating Factor(s): Nothing Alleviating Factor(s): Nothing Associated Signs And Symptoms: Positive: Negative Has Suicidal: Reports: Thoughts, With A Plan, Has Prior Attempt(s) - Allergies/Home Medications Allergies/Adverse Reactions: Allergies Allergy/AdvReac Type Severity Reaction Status Date / Time Adhesive Tape Allergy Rash Verified 12/19/18 15:44 asenapine Allergy Rash Verified 12/19/18 15:44 bee venom protein (honey bee) Allergy Anaphylatic Verified 12/19/18 15:44 Shock lurasidone [From Latuda] Allergy Hives Verified 12/19/18 15:44 metoclopramide [From Reglan] Allergy Abdominal Verified 12/19/18 15:44 Pain paclitaxel [From Taxol] Allergy Hives Verified 12/19/18 15:44 Sulfa (Sulfonamide Allergy Unknown Verified 12/19/18 15:44 Antibiotics) Reaction Details sulfamethoxazole Allergy Hives Verified 12/19/18 15:44 [From Bactrim] trimethoprim [From Bactrim] Allergy Hives Verified 12/19/18 15:44 nalbuphine [From Nubain] AdvReac Rash Verified 12/19/18 15:44 paroxetine [From Paxil] AdvReac Vomiting Verified 12/19/18 15:44 tramadol AdvReac Rash Verified 12/19/18 15:44 "metal" Allergy Swelling Uncoded 12/19/18 15:44 zepeda Allergy Nausea And Uncoded 12/19/18 15:44 Vomiting Home Medications: Home Medications Multivitamins/Minerals TAB* [Theragran/minerals TAB*] 1 tab PO DAILY 12/19/18 [ History Confirmed 12/19/18] PMH/Surg Hx/FS Hx/Imm Hx Endocrine/Hematology History: Reports: Hx Diabetes - type 2 dm on insulin, Hx Anemia Denies: Hx Thyroid Disease, Other Endocrine/Hematological Disorders Cardiovascular History: Reports: Hx Angina, Hx Hypercholesterolemia, Other Cardiovascular Problems/Disorders - vasculitis. tachycardia Denies: Hx Coronary Artery Disease, Hx Hypertension - ON BP MEDS FOR TACHY, Hx Myocardial Infarction, Hx Pacemaker/ICD, Hx Peripheral Vascular Disease, Hx Valvular Heart Disease Respiratory History: Reports: Hx Asthma, Hx Sleep Apnea Denies: Hx Chronic Obstructive Pulmonary Disease (COPD), Other Respiratory Problems/Disorders GI History: Reports: Hx Crohn's Disease, Hx Gastroesophageal Reflux Disease, Hx Irritable Bowel, Other GI Disorders - gastroparesis Denies: Hx Ulcer History: Denies: Hx Dialysis, Hx Renal Disease, Other Problems/Disorders Musculoskeletal History: Reports: Hx Arthritis - back and knees, Other Musculoskeletal History - Ulnar nerve compression Right arm Denies: Hx Osteoporosis Sensory History: Reports: Hx Contacts or Glasses - glasses Denies: Hx Legally Blind, Hx Deafness, Hx Hearing Aid Opthamlomology History: Reports: Hx Contacts or Glasses - glasses Denies: Hx Legally Blind Neurological History: Reports: Hx Headaches, Hx Migraine Denies: Hx Seizures, Hx Transient Ischemic Attacks (TIA), Other Neuro Impairments/Disorders Psychiatric History: Reports: Hx Anxiety, Hx Depression, Hx Panic Disorder - PTSD, Hx Post Traumatic Stress Disorder, Hx Inpatient Treatment, Hx Community Mental Health Tx, Hx Suicide Attempt, Other Psychiatric Issues/Disorders - Borderline Personality Disorder Denies: Hx Attention Deficit Hyperactivity Disorder, Hx Eating Disorder, Hx Schizophrenia, Hx Bipolar Disorder, Hx of Violent Episodes Against Others - Surgical History Surgery Procedure, Year, and Place: Cholecystectomy [facility]. Cardiac Catherterization-NO STENT [facility] 2005, 2017 [facility],. ulnar nerve release 2018, [facility] Hx Anesthesia Reactions: No - Immunization History Date of Tetanus Vaccine: utd Date of Influenza Vaccine: fall 2016 Infectious Disease History: No Infectious Disease History: Reports: Hx of Known/Suspected MRSA - treated. noncarrier now Denies: Hx Hepatitis, Hx Human Immunodeficiency Virus (HIV), Traveled Outside the [place] in Last 30 Days - Family History Known Family History: Positive: Cardiac Disease, Diabetes, Other - blod clots Negative: Hypertension - Social History Alcohol Use: None Hx Substance Use: Yes Substance Use Type: Reports: Marijuana Substance Use Comment - Amount & Last Used: medical marijuana Hx Tobacco Use: Yes Smoking Status (MU): Former Smoker Type: Cigarettes Amount Used/How Often: 2 cigarettes/day Length of Time of Smoking/Using Tobacco: 4 CIG/DAY 2 YEARS Have You Smoked in the Last Year: Yes - 04/05/18 Review of Systems Negative: Fever - on vitals, temp is 98.3 F Psychological: Other - POSITIVE - SI WITH PLAN All Other Systems Reviewed And Are Negative: Yes Physical Exam - Summary Physical Exam Summary: VITAL SIGNS: Reviewed. GENERAL: Patient is a well-developed and obese female who is lying comfortable in the stretcher. Patient is not in any acute respiratory distress. HEAD AND FACE: No signs of trauma. No ecchymosis, hematomas or skull depressions. No sinus tenderness. EYES: PERRLA, EOMI x 2, No injected conjunctiva, no nystagmus. EARS: Hearing grossly intact. Ear canals and tympanic membranes are within normal limits. MOUTH: Oropharynx within normal limits. NECK: Supple, trachea is midline, no adenopathy, no JVD, no carotid bruit, no c- spine tenderness, neck with full ROM. CHEST: Symmetric, no tenderness at palpation LUNGS: Clear to auscultation bilaterally. No wheezing or crackles. CVS: Regular rate and rhythm, S1 and S2 present, no murmurs or gallops appreciated. ABDOMEN: Soft, non-tender. No signs of distention. No rebound no guarding, and no masses palpated. Bowel sounds are normal. EXTREMITIES: FROM in all major joints, no edema, no cyanosis or clubbing. NEURO: Alert and oriented x 3. No acute neurological deficits. Speech is normal and follows commands. SKIN: Dry and warm PSYCH: Depressed, quiet, and endorses suicidal thoughts and plan. No homicidal thoughts or plan. No signs of psychosis or pressure speech. No tangential speech. Triage Information Reviewed: Yes Vital Signs On Initial Exam: Initial Vitals Temp Pulse Resp BP Pulse Ox 98.3 F 100 20 141/110 98 12/19/18 15:41 12/19/18 15:41 12/19/18 15:41 12/19/18 15:41 12/19/18 15:41 Vital Signs Reviewed: Yes Diagnostics - Vital Signs Vital Signs Temp Pulse Resp BP Pulse Ox 12/19/18 15:41 98.3 F 100 20 141/110 98 - Laboratory Lab Results: Lab Results 12/19/18 Range/Units 16:14 Sodium 134 L (135-145) mmol/L Potassium 4.2 (3.5-5.0) mmol/L Chloride 104 (101-111) mmol/L Carbon Dioxide 21 L (22-32) mmol/L Anion Gap 9 (2-11) mmol/L BUN 8 (6-24) mg/dL Creatinine 0.75 (0.51-0.95) mg/dL Est GFR ( Amer) 105.8 (>60) Est GFR (Non-Af Amer) 87.4 (>60) BUN/Creatinine Ratio 10.7 (8-20) Glucose 197 H (70-100) mg/dL Calcium 9.5 (8.6-10.3) mg/dL Total Bilirubin 0.50 (0.2-1.0) mg/dL AST 11 L (13-39) U/L ALT 12 (7-52) U/L Alkaline Phosphatase 114 H (34-104) U/L Total Protein 8.6 (6.4-8.9) g/dL Albumin 4.2 (3.2-5.2) g/dL Globulin 4.4 H (2-4) g/dL Albumin/Globulin Ratio 1.0 (1-3) TSH Pending Salicylates Pending Acetaminophen Pending Serum Alcohol Pending Result Diagrams: 12/19/18 16:14 12/19/18 16:14 Lab Statement: Any lab studies that have been ordered have been reviewed, and results considered in the medical decision making process. Re-Evaluation - Re-Evaluation First Eval Re-Evaluation Time: 16:00 Comment: Patient was medically cleared for MHE. Course/Dx - Course Assessment/Plan: Patient is a 38 y/o F presenting to ED with complaints of SI. Patient states that SI onset this past weekend, 2-3 days ago, and have persisted. Patient states that her plan of suicide is to overdose. Patient has a history of suicide attempts via overdose. Last hospitalization for psychiatric care was around a year ago. She states that she has been taking her medications for her anxiety, depression, and diabetes. PMHx of bipolar disorder is noted as well. Blood work w/o a significant abnormality, except for hyperglycemia. She is medically cleared. She is awaiting for a MHE. Patient is hemodynamically stable and A+O x 3. Patient's case was reviewed by Dr. Bergeron, patient will be a voluntary admit to [facility] psych. - Differential Dx/Clinical Impression Differential Diagnosis/HQI/PQRI: Positive: Depression, Suicidal Ideation Provider Diagnosis: Depression - Physician Notifications Discussed Care Of Patient With: Reggie Bergeron Time Discussed With Above Provider: 22:00 Instructed by Provider To: Other - Patient's case was reviewed by Dr. Bergeron, patient will be a voluntary admit to [facility] psych. Discharge - Sign-Out/Discharge Documenting (check all that apply): Patient Departure - admit Patient Received Moderate/Deep Sedation with Procedure: No - Discharge Plan Condition: Stable Disposition: PSYCHIATRIC FACILITY-[facility] Referrals: Kimberlyn Dhillon MD [Primary Care Provider] - - Billing Disposition and Condition Condition: STABLE Disposition: Psychiatric Facility [facility] - Attestation Statements Document Initiated by Horacioe: Yes Documenting Scribe: ISIDRO PEDERSON Provider For Whom Natalee is Documenting (Include Credential): KATHIA GARCIA MD Scribe Attestation: ISIDRO Richmond, scribed for KATHIA GARCIA MD on 12/19/18 at 2202. Scribe Documentation Reviewed: Yes Provider Attestation: The documentation as recorded by the ISIDRO ruelas accurately reflects the service I personally performed and the decisions made by , KATHIA GARCIA MD Status of Scribe Document: Viewed
[2018-12-19 17:00] LABS: Acetaminophen < 15 mcg/mL; Alcohol < 10 mg/dL (<10); Salicylate < 2.50 mg/dL (<30)
[2018-12-19 17:01] LABS: Urine Appearance Cloudy; Urine Bacteria Absent (Absent); Urine Bilirubin Negative (Negative); Urine Blood Negative (Negative); Urine Color Amber; Urine Glucose Negative (Negative); Urine Ketones Negative (Negative); Urine Nitrite Negative (Negative); Urine Protein 1+(30 mg/dL) (Negative); Urine Red Blood Cell 1+(3-5/hpf) (Absent); Urine Specific Gravity 1.026 (1.010-1.030); Urine Squamous Epithelial Cell Present (Absent); Urine Urobilinogen Negative (Negative); Urine White Blood Cell Trace(0-5/hpf) (Absent)
[2018-12-19 17:08] LABS: Urine Benzodiazepine Screen None Detected (None Detect); Urine Opiates Screen None Detected (None Detect)
[2018-12-19 17:15] LABS: TSH (Thyroid Stimulating Horm) 1.11 mcIU/mL (0.34-5.60)
[2018-12-19] MEDS ORDERED: Insulin REGULAR(*) 1 UNITS UNIT SUBCUT ONE (18:12)
[2018-12-19] MEDS ORDERED: Nicotine GUM* 2 MG PO PRN (23:32)
[2018-12-19] MEDS ORDERED: SUMAtriptan TAB* 100 MG PO PRN (23:37)
[2018-12-19] MEDS ORDERED: Loperamide CAP* 2 MG PO PRN (23:37)
[2018-12-19] MEDS ORDERED: Ondansetron ODT TAB* 4 MG PO PRN (23:58)
[2018-12-19] MEDS ORDERED: Albuterol HFA INHALER* 8 gm MDI INH PRN (23:59)
[2018-12-20] MEDS: BREXPIPRAZOLE 2 MG PO SCH ×2 (00:22→20:58)
[2018-12-20] MEDS: Metoprolol Tartrate TAB* 100 MG TAB PO SCH ×3 (00:23→21:00)
[2018-12-20] MEDS: Nystatin TOP POWDER* 15 GM BTL TOPICAL SCH ×4 (00:23→21:04)
[2018-12-20] MEDS: Mycophenolate Mofetil TAB(*) 500 MG PO SCH ×3 (00:23→21:01)
[2018-12-20] MEDS: VILAZODONE 10 MG PO SCH ×3 (00:24→21:03)
[2018-12-20] MEDS: Prazosin CAP* 5 MG PO SCH ×2 (00:24→20:59)
[2018-12-20] MEDS: Phenazopyridine TAB* 100 MG PO SCH ×2 (00:24→08:40)
[2018-12-20] MEDS: Topiramate TAB(*) 100 MG PO SCH ×3 (00:29→21:04)
[2018-12-20] MEDS: Gabapentin CAP(*) 400 MG PO SCH ×2 (00:29→20:58)
[2018-12-20] MEDS: Prazosin CAP* 1 MG PO SCH ×3 (00:29→21:00)
[2018-12-20] MEDS: Cyclobenzaprine TAB* 10 MG PO PRN ×3 (00:37→23:30)
[2018-12-20] MEDS: Zolpidem TAB* 10 MG PO PRN ×2 (00:37→21:05)
[2018-12-20] MEDS: Spironolactone TAB* 25 MG PO SCH (08:35)
[2018-12-20] MEDS: Cetirizine* 10 MG TAB PO SCH (08:36)
[2018-12-20] MEDS: Gabapentin CAP(*) 300 MG PO SCH (08:36)
[2018-12-20] MEDS: Multivitamins/Minerals TAB PO SCH (08:36)
[2018-12-20] MEDS: Vitamin THERAPEUTIC TAB PO SCH (08:36)
[2018-12-20] MEDS: Magnesium Oxide TAB* 400 MG PO SCH (08:37)
[2018-12-20] MEDS: Pantoprazole TAB * 40 MG TAB PO SCH (08:37)
[2018-12-20] MEDS: Lactobacillus Acidophilus* 1 TAB PO SCH (08:39)
[2018-12-20] MEDS ORDERED: Acetaminophen TAB* 325 MG PO PRN (10:11)
[2018-12-20] MEDS ORDERED: Al Hydrox/Mg Hydrox/Simet LIQ* 30 ML UDC PO PRN (10:11)
[2018-12-20] MEDS ORDERED: Dextrose 50% Syringe 50 ML* 25 GM/50 ML SYRINGE IV PUSH PRN (11:56)
[2018-12-20] MEDS: Insulin LISPRO* 1 UNITS UNIT SUBCUT SCH ×3 (12:19→20:56)
[2018-12-20] MEDS: Acetaminop/Codeine 30 MG TAB* 1 TAB (300 MG/30 MG) PO PRN ×2 (13:25→20:59)
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
[2018-12-20] MEDS: Nicotine Patch Removal NOTE PATCH OFF SCH (21:03)
[2018-12-20] MEDS: LORazepam TAB(*) 1 MG PO PRN (23:30)
[2018-12-21] MEDS: LORazepam TAB(*) 1 MG PO PRN ×2 (01:40→07:00)
[2018-12-21] MEDS: Acetaminop/Codeine 30 MG TAB* 1 TAB (300 MG/30 MG) PO PRN ×2 (07:00→20:42)
[2018-12-21] MEDS: Insulin LISPRO* 1 UNITS UNIT SUBCUT SCH ×4 (08:05→20:44)
[2018-12-21 08:41] LABS: HDL Cholesterol 30.5 mg/dL
[2018-12-21] MEDS: Nicotine PATCH 21 MG/24 HR* PATCH TRANSDERM SCH (09:08)
[2018-12-21] MEDS: Nystatin TOP POWDER* 15 GM BTL TOPICAL SCH ×3 (09:08→21:58)
[2018-12-21] MEDS: VILAZODONE 10 MG PO SCH ×2 (09:10→20:40)
[2018-12-21] MEDS: Dapsone TAB* 100 MG PO SCH (09:10)
[2018-12-21] MEDS: Pantoprazole TAB * 40 MG TAB PO SCH (09:12)
[2018-12-21] MEDS: Topiramate TAB(*) 100 MG PO SCH ×2 (09:12→20:37)
[2018-12-21] MEDS: Metoprolol Tartrate TAB* 100 MG TAB PO SCH ×2 (09:13→20:38)
[2018-12-21] MEDS: Prazosin CAP* 1 MG PO SCH ×2 (09:13→20:38)
[2018-12-21] MEDS: Lactobacillus Acidophilus* 1 TAB PO SCH (09:13)
[2018-12-21] MEDS: Cetirizine* 10 MG TAB PO SCH (09:14)
[2018-12-21] MEDS: Mycophenolate Mofetil TAB(*) 500 MG PO SCH ×2 (09:14→20:39)
[2018-12-21] MEDS: Magnesium Oxide TAB* 400 MG PO SCH (09:14)
[2018-12-21] MEDS: Multivitamins/Minerals TAB PO SCH (09:15)
[2018-12-21] MEDS: Vitamin THERAPEUTIC TAB PO SCH (09:16)
[2018-12-21] MEDS: Gabapentin CAP(*) 300 MG PO SCH (09:16)
[2018-12-21] MEDS: Spironolactone TAB* 25 MG PO SCH (09:17)
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
[2018-12-21] MEDS: Cyclobenzaprine TAB* 10 MG PO PRN (13:56)
[2018-12-21] MEDS: Gabapentin CAP(*) 400 MG PO SCH (20:37)
[2018-12-21] MEDS: Mirtazapine TAB* 15 MG PO SCH (20:38)
[2018-12-21] MEDS: Nicotine Patch Removal NOTE PATCH OFF SCH (20:40)
[2018-12-21] MEDS: Prazosin CAP* 5 MG PO SCH (20:40)
[2018-12-22] MEDS: Cyclobenzaprine TAB* 10 MG PO PRN ×2 (01:45→16:04)
[2018-12-22] MEDS: Zolpidem TAB* 10 MG PO PRN (01:45)
[2018-12-22] MEDS: Acetaminop/Codeine 30 MG TAB* 1 TAB (300 MG/30 MG) PO PRN (09:12)
[2018-12-22] MEDS: Gabapentin CAP(*) 300 MG PO SCH (09:12)
[2018-12-22] MEDS: Spironolactone TAB* 25 MG PO SCH (09:13)
[2018-12-22] MEDS: Topiramate TAB(*) 100 MG PO SCH ×2 (09:13→20:23)
[2018-12-22] MEDS: Prazosin CAP* 1 MG PO SCH ×2 (09:13→20:24)
[2018-12-22] MEDS: Cetirizine* 10 MG TAB PO SCH (09:13)
[2018-12-22] MEDS: Multivitamins/Minerals TAB PO SCH (09:13)
[2018-12-22] MEDS: Pantoprazole TAB * 40 MG TAB PO SCH (09:13)
[2018-12-22] MEDS: Magnesium Oxide TAB* 400 MG PO SCH (09:13)
[2018-12-22] MEDS: Insulin LISPRO* 1 UNITS UNIT SUBCUT SCH ×4 (09:14→20:26)
[2018-12-22] MEDS: Dapsone TAB* 100 MG PO SCH (09:15)
[2018-12-22] MEDS: Nicotine PATCH 21 MG/24 HR* PATCH TRANSDERM SCH (09:15)
[2018-12-22] MEDS: Lactobacillus Acidophilus* 1 TAB PO SCH (09:17)
[2018-12-22] MEDS: Metoprolol Tartrate TAB* 100 MG TAB PO SCH ×2 (09:17→20:24)
[2018-12-22] MEDS: Mycophenolate Mofetil TAB(*) 500 MG PO SCH ×2 (09:17→20:24)
[2018-12-22] MEDS: VILAZODONE 10 MG PO SCH ×2 (09:18→20:23)
[2018-12-22] MEDS: Vitamin THERAPEUTIC TAB PO SCH (09:25)
[2018-12-22] MEDS: Nystatin TOP POWDER* 15 GM BTL TOPICAL SCH ×3 (09:26→21:31)
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
[2018-12-22] MEDS: Mirtazapine TAB* 15 MG PO SCH (20:23)
[2018-12-22] MEDS: Gabapentin CAP(*) 400 MG PO SCH (20:24)
[2018-12-22] MEDS: Prazosin CAP* 5 MG PO SCH (20:24)
[2018-12-22] MEDS: Nicotine Patch Removal NOTE PATCH OFF SCH (20:44)
[2018-12-23] MEDS: Zolpidem TAB* 10 MG PO PRN (01:15)
[2018-12-23] MEDS: Acetaminop/Codeine 30 MG TAB* 1 TAB (300 MG/30 MG) PO PRN ×2 (01:15→07:15)
[2018-12-23] MEDS: LORazepam TAB(*) 1 MG PO PRN ×2 (04:40→21:01)
[2018-12-23] MEDS: Cyclobenzaprine TAB* 10 MG PO PRN ×2 (06:25→13:07)
[2018-12-23] MEDS: Insulin LISPRO* 1 UNITS UNIT SUBCUT SCH ×4 (09:06→21:05)
[2018-12-23] MEDS: Prazosin CAP* 1 MG PO SCH ×2 (09:07→21:53)
[2018-12-23] MEDS: Gabapentin CAP(*) 300 MG PO SCH (09:07)
[2018-12-23] MEDS: Topiramate TAB(*) 100 MG PO SCH ×2 (09:07→21:16)
[2018-12-23] MEDS: Spironolactone TAB* 25 MG PO SCH (09:07)
[2018-12-23] MEDS: Metoprolol Tartrate TAB* 100 MG TAB PO SCH ×2 (09:08→21:52)
[2018-12-23] MEDS: Pantoprazole TAB * 40 MG TAB PO SCH (09:08)
[2018-12-23] MEDS: Multivitamins/Minerals TAB PO SCH (09:08)
[2018-12-23] MEDS: Magnesium Oxide TAB* 400 MG PO SCH (09:08)
[2018-12-23] MEDS: Cetirizine* 10 MG TAB PO SCH (09:08)
[2018-12-23] MEDS: VILAZODONE 10 MG PO SCH ×2 (09:09→21:53)
[2018-12-23] MEDS: Mycophenolate Mofetil TAB(*) 500 MG PO SCH ×2 (09:09→21:15)
[2018-12-23] MEDS: Dapsone TAB* 100 MG PO SCH (09:10)
[2018-12-23] MEDS: Nicotine PATCH 21 MG/24 HR* PATCH TRANSDERM SCH (09:10)
[2018-12-23] MEDS: Vitamin THERAPEUTIC TAB PO SCH (09:12)
[2018-12-23] MEDS: Nystatin TOP POWDER* 15 GM BTL TOPICAL SCH ×3 (09:12→21:52)
[2018-12-23] MEDS: Lactobacillus Acidophilus* 1 TAB PO SCH (09:12)
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
[2018-12-23] MEDS: Gabapentin CAP(*) 400 MG PO SCH (21:51)
[2018-12-23] MEDS: Mirtazapine TAB* 15 MG PO SCH (21:52)
[2018-12-23] MEDS: Nicotine Patch Removal NOTE PATCH OFF SCH (21:52)
[2018-12-23] MEDS: Prazosin CAP* 5 MG PO SCH (21:53)
[2018-12-24] MEDS: Acetaminop/Codeine 30 MG TAB* 1 TAB (300 MG/30 MG) PO PRN ×3 (02:05→20:55)
[2018-12-24] MEDS: Zolpidem TAB* 10 MG PO PRN (02:05)
[2018-12-24] MEDS: LORazepam TAB(*) 1 MG PO PRN (04:55)
[2018-12-24] MEDS: Cyclobenzaprine TAB* 10 MG PO PRN (06:30)
[2018-12-24] MEDS: Spironolactone TAB* 25 MG PO SCH (09:15)
[2018-12-24] MEDS: Prazosin CAP* 1 MG PO SCH ×2 (09:16→20:53)
[2018-12-24] MEDS: Mycophenolate Mofetil TAB(*) 500 MG PO SCH ×2 (09:17→20:52)
[2018-12-24] MEDS: VILAZODONE 10 MG PO SCH ×2 (09:18→20:53)
[2018-12-24] MEDS: Topiramate TAB(*) 100 MG PO SCH ×2 (09:18→20:53)
[2018-12-24] MEDS: Lactobacillus Acidophilus* 1 TAB PO SCH (09:18)
[2018-12-24] MEDS: Magnesium Oxide TAB* 400 MG PO SCH (09:19)
[2018-12-24] MEDS: Gabapentin CAP(*) 300 MG PO SCH (09:19)
[2018-12-24] MEDS: Cetirizine* 10 MG TAB PO SCH (09:20)
[2018-12-24] MEDS: Metoprolol Tartrate TAB* 100 MG TAB PO SCH ×2 (09:20→20:51)
[2018-12-24] MEDS: Vitamin THERAPEUTIC TAB PO SCH (09:20)
[2018-12-24] MEDS: Multivitamins/Minerals TAB PO SCH (09:20)
[2018-12-24] MEDS: Dapsone TAB* 100 MG PO SCH (09:21)
[2018-12-24] MEDS: Pantoprazole TAB * 40 MG TAB PO SCH (09:21)
[2018-12-24] MEDS: Nicotine PATCH 21 MG/24 HR* PATCH TRANSDERM SCH (09:23)
[2018-12-24] MEDS: Insulin LISPRO* 1 UNITS UNIT SUBCUT SCH ×4 (09:24→21:01)
[2018-12-24] MEDS: Nystatin TOP POWDER* 15 GM BTL TOPICAL SCH ×3 (09:25→20:54)
[2018-12-24] MEDS: Mirtazapine TAB* 15 MG PO SCH (20:52)
[2018-12-24] MEDS: Gabapentin CAP(*) 400 MG PO SCH (20:52)
[2018-12-24] MEDS: Prazosin CAP* 5 MG PO SCH (20:52)
[2018-12-24] MEDS: Nicotine Patch Removal NOTE PATCH OFF SCH (20:54)
[2018-12-25] MEDS: Cyclobenzaprine TAB* 10 MG PO PRN ×2 (03:11→16:11)
[2018-12-25] MEDS: Zolpidem TAB* 10 MG PO PRN (03:12)
[2018-12-25] MEDS: Lactobacillus Acidophilus* 1 TAB PO SCH (08:47)
[2018-12-25] MEDS: Cetirizine* 10 MG TAB PO SCH (08:48)
[2018-12-25] MEDS: Multivitamins/Minerals TAB PO SCH (08:48)
[2018-12-25] MEDS: Prazosin CAP* 1 MG PO SCH ×2 (08:48→20:35)
[2018-12-25] MEDS: Topiramate TAB(*) 100 MG PO SCH ×2 (08:48→20:35)
[2018-12-25] MEDS: Magnesium Oxide TAB* 400 MG PO SCH (08:48)
[2018-12-25] MEDS: Spironolactone TAB* 25 MG PO SCH (08:48)
[2018-12-25] MEDS: Gabapentin CAP(*) 300 MG PO SCH (08:49)
[2018-12-25] MEDS: Dapsone TAB* 100 MG PO SCH (08:49)
[2018-12-25] MEDS: Metoprolol Tartrate TAB* 100 MG TAB PO SCH ×2 (08:49→20:32)
[2018-12-25] MEDS: VILAZODONE 10 MG PO SCH ×2 (08:50→20:35)
[2018-12-25] MEDS: Pantoprazole TAB * 40 MG TAB PO SCH (08:50)
[2018-12-25] MEDS: Acetaminop/Codeine 30 MG TAB* 1 TAB (300 MG/30 MG) PO PRN ×2 (08:51→20:38)
[2018-12-25] MEDS: Insulin LISPRO* 1 UNITS UNIT SUBCUT SCH ×4 (08:52→20:52)
[2018-12-25] MEDS: Nicotine PATCH 21 MG/24 HR* PATCH TRANSDERM SCH (08:53)
[2018-12-25] MEDS: Mycophenolate Mofetil TAB(*) 500 MG PO SCH ×2 (08:54→20:33)
[2018-12-25] MEDS: Nystatin TOP POWDER* 15 GM BTL TOPICAL SCH ×3 (08:54→20:34)
[2018-12-25] MEDS: Vitamin THERAPEUTIC TAB PO SCH (09:29)
[2018-12-25] MEDS: Gabapentin CAP(*) 400 MG PO SCH (20:31)
[2018-12-25] MEDS: Mirtazapine TAB* 15 MG PO SCH (20:33)
[2018-12-25] MEDS: Nicotine Patch Removal NOTE PATCH OFF SCH (20:34)
[2018-12-25] MEDS: Prazosin CAP* 5 MG PO SCH (20:34)
[2018-12-26] MEDS: Zolpidem TAB* 10 MG PO PRN (01:22)
[2018-12-26] MEDS: LORazepam TAB(*) 1 MG PO PRN (01:22)
[2018-12-26] MEDS: Cyclobenzaprine TAB* 10 MG PO PRN (01:22)
[2018-12-26] MEDS: Acetaminop/Codeine 30 MG TAB* 1 TAB (300 MG/30 MG) PO PRN (07:07)
[2018-12-26] MEDS: Insulin LISPRO* 1 UNITS UNIT SUBCUT SCH ×2 (08:14→13:26)
[2018-12-26] MEDS: Nicotine PATCH 21 MG/24 HR* PATCH TRANSDERM SCH (08:57)
[2018-12-26] MEDS: Cetirizine* 10 MG TAB PO SCH (08:59)
[2018-12-26] MEDS: Dapsone TAB* 100 MG PO SCH (09:00)
[2018-12-26] MEDS: Gabapentin CAP(*) 300 MG PO SCH (09:00)
[2018-12-26] MEDS: Lactobacillus Acidophilus* 1 TAB PO SCH (09:01)
[2018-12-26] MEDS: Metoprolol Tartrate TAB* 100 MG TAB PO SCH (09:01)
[2018-12-26] MEDS: Magnesium Oxide TAB* 400 MG PO SCH (09:01)
[2018-12-26] MEDS: Multivitamins/Minerals TAB PO SCH (09:02)
[2018-12-26] MEDS: Mycophenolate Mofetil TAB(*) 500 MG PO SCH (09:02)
[2018-12-26] MEDS: Pantoprazole TAB * 40 MG TAB PO SCH (09:03)
[2018-12-26] MEDS: Prazosin CAP* 1 MG PO SCH (09:03)
[2018-12-26] MEDS: Nystatin TOP POWDER* 15 GM BTL TOPICAL SCH (09:03)
[2018-12-26] MEDS: Spironolactone TAB* 25 MG PO SCH (09:04)
[2018-12-26] MEDS: Topiramate TAB(*) 100 MG PO SCH (09:04)
[2018-12-26] MEDS: VILAZODONE 10 MG PO SCH (09:04)
[2018-12-26] MEDS: Vitamin THERAPEUTIC TAB PO SCH (09:05)
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
[2018-12-26 10:38] VITALS: BP 112/75
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
== END 2018-12-26 12:15 | disposition home or self-care (01) | DRG 755 ==
LOC: ED 15:39 → BSU 21:49
PROVIDERS: ADMIT Psychiatry & Neurology Psychiatry; ATTEND Psychiatry & Neurology Psychiatry
DX: F43.12 Post-traumatic stress disorder, chronic (principal); R45.851 Suicidal ideations; F33.9 Major depressive disorder, recurrent, unspecified; K50.90 Crohn's disease, unspecified, without complications; Z68.43 Body mass index [BMI] 50.0-59.9, adult; F60.3 Borderline personality disorder; G47.30 Sleep apnea, unspecified; Z62.810 Personal history of physical and sexual abuse in childhood; E10.43 Type 1 diabetes mellitus with diabetic autonomic (poly)neuropathy; K31.84 Gastroparesis; E78.00 Pure hypercholesterolemia, unspecified; J45.909 Unspecified asthma, uncomplicated; F17.210 Nicotine dependence, cigarettes, uncomplicated; K21.9 Gastro-esophageal reflux disease without esophagitis; E66.01 Morbid (severe) obesity due to excess calories; L95.9 Vasculitis limited to the skin, unspecified; G43.909 Migraine, unspecified, not intractable, without status migrainosus; Z79.84 Long term (current) use of oral hypoglycemic drugs; Z79.1 Long term (current) use of non-steroidal anti-inflammatories (NSAID); Z79.4 Long term (current) use of insulin; Z79.51 Long term (current) use of inhaled steroids; Z79.899 Other long term (current) drug therapy; Z81.8 Family history of other mental and behavioral disorders; Z81.1 Family history of alcohol abuse and dependence
CPT/HCPCS: 36415; 80053; 80061; 80307; 80320; 80329; 81003; 81015; 83036; 84443; 85025; 87086; 94660; 99222; 99231; 99232; 99284; A9270-GY; G0480

== ENCOUNTER 2018-12-28 10:44 | Inpatient (IN) | payer OTHER ==
[2018-12-28] MEDS ORDERED: NS 0.9% 1000 ML** 1,000 ML IV ONE (10:50)
--- NOTE | 2018-12-28 10:53 | ED ---
Psychiatric Complaint - HPI Summary HPI Summary: Pt is a 38 y/o F presenting to the ED brought in by EMS for a chief psychiatric complaint. The pt took approximately 14 tablets of 500mg Naproxen at 0945 in an attempt to harm herself, and was on the phone with her counselor when she did so. She lives alone and states she has been dealing with family issues as well as personal issues, and has been previously diagnosed with PTSD, bipolar disorder, and anxiety. She denies CP, SOB, and HI, as well as currently denying SI. - History Of Current Complaint Time Seen by Provider: 12/28/18 10:45 Accompanied By: oral Hx Obtained From: Patient Hx Last Menstrual Period: nexplanon Onset/Duration: Gradual Onset, Lasting Days, Still Present Timing: Days Severity Initially: Moderate Severity Currently: Moderate Character: Depressed, Anxious Aggravating Factor(s): Recent Stress Alleviating Factor(s): Nothing Related History: Positive For: Prior Psychiatric Issues Has Suicidal: Reports: Thoughts, With A Plan, Has Prior Attempt(s) Has Homicidal: Denies: Thoughts Recent Stressor(s): family/personal issues per pt Ingestion History: Type/Name Of Drug - naproxen, Amount Ingested - 14 tablets of 500 mg = 7g, Approximate Time Of Ingestion - 0945 - Allergies/Home Medications Allergies/Adverse Reactions: Allergies Allergy/AdvReac Type Severity Reaction Status Date / Time Adhesive Tape Allergy Rash Verified 12/23/18 12:35 asenapine Allergy Rash Verified 12/23/18 12:35 bee venom protein (honey bee) Allergy Anaphylatic Verified 12/23/18 12:35 Shock lurasidone [From Latuda] Allergy Hives Verified 12/23/18 12:35 metoclopramide [From Reglan] Allergy Abdominal Verified 12/23/18 12:35 Pain paclitaxel [From Taxol] Allergy Hives Verified 12/23/18 12:35 Sulfa (Sulfonamide Allergy Unknown Verified 12/23/18 12:35 Antibiotics) Reaction Details sulfamethoxazole Allergy Hives Verified 12/23/18 12:35 [From Bactrim] trimethoprim [From Bactrim] Allergy Hives Verified 12/23/18 12:35 nalbuphine [From Nubain] AdvReac Rash Verified 12/23/18 12:35 paroxetine [From Paxil] AdvReac Vomiting Verified 12/19/18 15:44 tramadol AdvReac Rash Verified 12/19/18 15:44 "metal" Allergy Swelling Uncoded 12/19/18 15:44 zepeda Allergy Nausea And Uncoded 12/19/18 15:44 Vomiting Home Medications: Home Medications Erenumab-Aooe [Aimovig Autoinjector] 70 mg SUBCUT MONTHLY 12/28/18 [History Confirmed 12/28/18] Lactobacillus Acidophilus* [Culturelle*] 1 cap PO DAILY 12/28/18 [History Confirmed 12/28/18] PMH/Surg Hx/FS Hx/Imm Hx Previously Healthy: No Endocrine/Hematology History: Reports: Hx Diabetes - type 2 dm on insulin, Hx Anemia Denies: Hx Thyroid Disease, Other Endocrine/Hematological Disorders Cardiovascular History: Reports: Hx Angina, Hx Hypercholesterolemia, Other Cardiovascular Problems/Disorders - vasculitis. tachycardia Denies: Hx Coronary Artery Disease, Hx Hypertension, Hx Myocardial Infarction , Hx Pacemaker/ICD, Hx Peripheral Vascular Disease, Hx Valvular Heart Disease Respiratory History: Reports: Hx Asthma, Hx Sleep Apnea Denies: Hx Chronic Obstructive Pulmonary Disease (COPD), Other Respiratory Problems/Disorders GI History: Reports: Hx Crohn's Disease, Hx Gastroesophageal Reflux Disease, Hx Irritable Bowel, Other GI Disorders - gastroparesis Denies: Hx Ulcer History: Denies: Hx Dialysis, Hx Renal Disease, Other Problems/Disorders Musculoskeletal History: Reports: Hx Arthritis - back and knees, Other Musculoskeletal History - Ulnar nerve compression Right arm Denies: Hx Osteoporosis Sensory History: Reports: Hx Contacts or Glasses Denies: Hx Legally Blind, Hx Deafness, Hx Hearing Aid Opthamlomology History: Reports: Hx Contacts or Glasses Denies: Hx Legally Blind Neurological History: Reports: Hx Headaches, Hx Migraine Denies: Hx Seizures, Hx Transient Ischemic Attacks (TIA), Other Neuro Impairments/Disorders Psychiatric History: Reports: Hx Anxiety, Hx Depression, Hx Panic Disorder - PTSD, Hx Post Traumatic Stress Disorder, Hx Inpatient Treatment, Hx Community Mental Health Tx, Hx Bipolar Disorder, Hx Suicide Attempt, Other Psychiatric Issues/Disorders - Borderline Personality Disorder Denies: Hx Attention Deficit Hyperactivity Disorder, Hx Eating Disorder, Hx Schizophrenia, Hx of Violent Episodes Against Others - Surgical History Surgery Procedure, Year, and Place: Cholecystectomy [facility] in [place]. Cardiac Catherterization-NO STENT [place] in [place] 2006, [place] [facility],. ulnar nerve release 2018, [facility] Hx Anesthesia Reactions: No - Immunization History Date of Tetanus Vaccine: utd Date of Influenza Vaccine: fall 2016 Infectious Disease History: Reports: Hx of Known/Suspected MRSA - treated. noncarrier now Denies: Hx Hepatitis, Hx Human Immunodeficiency Virus (HIV) - Family History Known Family History: Positive: Cardiac Disease, Diabetes, Other - blod clots Negative: Hypertension - Social History Alcohol Use: Rare Hx Substance Use: Yes Substance Use Type: Reports: Marijuana Substance Use Comment - Amount & Last Used: medical marijuana Hx Tobacco Use: Yes Smoking Status (MU): Light Every Day Tobacco Smoker Type: Cigarettes Amount Used/How Often: 2 cigarettes/day Length of Time of Smoking/Using Tobacco: 4 CIG/DAY 2 YEARS Have You Smoked in the Last Year: Yes - 04/05/18 Review of Systems Negative: Chest Pain Negative: Shortness Of Breath Positive: Depressed. Negative: Other - homicidal ideations All Other Systems Reviewed And Are Negative: Yes Physical Exam - Summary Physical Exam Summary: GENERAL: Patient is a well-developed and nourished female who is lying comfortable in the stretcher. Patient is not in any acute respiratory distress. HEAD AND FACE: Normocephalic EYES: PERRLA, EOMI x 2. EARS: Hearing grossly intact. MOUTH: Oropharynx within normal limits. NECK: Supple, trachea is midline, no adenopathy, no JVD, no carotid bruit. CHEST: Symmetric, no tenderness at palpation LUNGS: Clear to auscultation bilaterally. No wheezing or crackles. CVS: Regular rate and rhythm, S1 and S2 present, no murmurs or gallops appreciated. ABDOMEN: Soft, non-tender. Bowel sounds are normal. No abnormal abdominal pulsations. EXTREMITIES: Full ROM in all major joints, no edema, no cyanosis or clubbing. NEURO: Alert and oriented x 3. No acute neurological deficits. Speech is normal and follows commands. SKIN: Dry and warm Psych: Sad affect, no SI or HI. Triage Information Reviewed: Yes Vital Signs Reviewed: Yes Diagnostics - Laboratory Result Diagrams: 12/28/18 10:59 12/28/18 10:59 Lab Statement: Any lab studies that have been ordered have been reviewed, and results considered in the medical decision making process. - EKG 1115 Cardiac Rate: NL - 72bpm EKG Rhythm: Sinus Rhythm ST Segment: Normal Ectopy: None Summary of EKG Findings: EKG at 1115 shows NSR 92bpm with Q waves in inferior and anterior leads. Course/Dx - Course Course Of Treatment: Pt is a 38 y/o F presenting to the ED brought in by EMS for taking 14 tablets of 500mg Naproxen in an attempt to hurt herself. She denies CP, SOB, SI and HI. Upon examination, the pt has a sad affect but denies SI and HI. Poison control recommended treating the patient with activated charcoal. They also stated the patient can be medically cleared 6 hours after her arrival based on her bloodwork and urine results. EKG at 1115 shows NSR 92bpm with Q waves in inferior and anterior leads. Pt's toxicology results show opiates and cannabinoids, and her WBC is 16.7. She will be admitted to [facility] under Dr. Sykes with a dx of borderline personality disorder. - Differential Dx/Clinical Impression Provider Diagnosis: Borderline personality disorder Discharge - Sign-Out/Discharge Documenting (check all that apply): Patient Departure - Discharge Plan Condition: Stable Disposition: PSYCHIATRIC FACILITY-[facility] - Billing Disposition and Condition Condition: STABLE Disposition: Psychiatric Facility [facility] - Attestation Statements Document Initiated by Scribe: Yes Documenting Scribe: Mehnaz Powell Provider For Whom Scribe is Documenting (Include Credential): Marycruz Gudino MD. Scribe Attestation: Mehnaz Richmond, kiahibed for Marycruz Gudino MD. on 12/29/18 at 1113. Scribe Documentation Reviewed: Yes Provider Attestation: The documentation as recorded by the scribMehnaz caban accurately reflects the service I personally performed and the decisions made by , Juaquin Gudino MD. Status of Scribe Document: Viewed Consult Consult: 1104 - Poison control recommended treating the patient with activated charcoal. They also stated the patient can be medically cleared 6 hours after her arrival based on her bloodwork and urine results.
[2018-12-28] MEDS ORDERED: Charcoal ACTIVATED* 25 GM/120 ML BTL PO ONE (11:00)
[2018-12-28 11:18] LABS: ABS Basophils 0.1 10^3/ul (0-0.2); ABS Eosinophils 0.2 10^3/ul (0-0.6); ABS Lymphocytes 3.5 10^3/ul (1.0-4.8); ABS Monocytes 1.2 10^3/ul (0-0.8); ABS Neutrophils 11.8 10^3/ul (1.5-7.7); Hematocrit 39 % (35-47); Hemoglobin 12.4 g/dL (12.0-16.0); Lymphocyte % 20.7 %; Mean Corpuscular HGB Conc 32 g/dL (31-36); Mean Corpuscular Hemoglobin 29 pg (27-31); Mean Corpuscular Volume 90 fL (80-97); Mean Platelet Volume 6.5 fL (7.4-10.4); Platelet Count 312 10^3/uL (150-450); Red Cell Distribution Width 15 % (10.5-15); White Blood Count 16.7 10^3/uL (3.5-10.8)
[2018-12-28 11:30] LABS: Acetaminophen < 15 mcg/mL; Alcohol < 10 mg/dL (<10); Salicylate < 2.50 mg/dL (<30)
[2018-12-28 11:31] LABS: ALT 16 U/L (7-52); AST 16 U/L (13-39); Albumin 3.5 g/dL (3.2-5.2); Albumin/Globulin Ratio 0.9 (1-3); Alkaline Phosphatase 116 U/L (34-104); Anion Gap 9 mmol/L (2-11); BUN/Creatinine Ratio 17.6 (8-20); Blood Urea Nitrogen 12 mg/dL (6-24); CO2 Carbon Dioxide 19 mmol/L (22-32); Chloride 109 mmol/L (101-111); EGFR African American 118.5 (>60); EGFR Non-African American 97.9 (>60); Globulin 3.7 g/dL (2-4); Glucose 179 mg/dL (70-100); Sodium 137 mmol/L (135-145); Total Protein 7.2 g/dL (6.4-8.9)
[2018-12-28 11:36] LABS: HCG Pregnancy < 0.60 mIU/mL
[2018-12-28] MEDS ORDERED: Ondansetron INJ* 2 MG/ML VIAL IV ONE (11:45)
[2018-12-28 11:46] LABS: TSH (Thyroid Stimulating Horm) 0.91 mcIU/mL (0.34-5.60)
[2018-12-28] MEDS ORDERED: Ondansetron INJ* 2 MG/ML VIAL ONE (11:46)
[2018-12-28 11:54] LABS: Urine Appearance Clear; Urine Bacteria Absent (Absent); Urine Bilirubin Negative (Negative); Urine Blood Negative (Negative); Urine Color Yellow; Urine Glucose Negative (Negative); Urine Ketones Negative (Negative); Urine Nitrite Negative (Negative); Urine Protein Negative (Negative); Urine Red Blood Cell Absent (Absent); Urine Specific Gravity 1.023 (1.010-1.030); Urine Squamous Epithelial Cell Present (Absent); Urine Urobilinogen Negative (Negative); Urine White Blood Cell Absent (Absent)
[2018-12-28 12:07] LABS: Urine Benzodiazepine Screen None Detected (None Detect); Urine Opiates Screen Presumptive Positive (None Detect)
--- NOTE | 2018-12-28 16:54 | PN ---
Subjective - Subjective Date of Service: 12/28/18 Service Type: 89722 Hosp care 35 min high complexity Subjective: Patient reports fear of going home due not "not feeling safe." With prompting, she is able to identify emotions related to this, such as loneliness and sadness. Patient is beginning to consider joining [facility] and states she was hesitant to do so in the past as she did not want to change therapist or doctor at [facility]. Patient states she replaced her insulin pump and CAP nurse rescheduled appt with Dr Fabian. Objective - General Observations Appearance: Unkempt Stature: Overweight Posture: Slumped Eye Contact: Average Behavior/Activity: Slowed - Interaction Observations Attitude Towards Examiner: Cooperative Stated Mood: Dysphoric Affect: Flat Speech Pattern/Tone: Clear, Appropriate, Normal Volume Thought Process: Coherent, Circumstantial Perception: WNL Thought Content: Depressive Thought Process: Lethality: Passive Wish, Suicidal Planning Hallucination Type: None Delusion Type: None - Cognitive Function Orientation: A&O x 4 Level of Consciousness: Alert Cognition: WNL Estimated Intelligence: Normal Insight: WNL Ability to Make Reasonable Decisions: Mildly Impaired Assessment - Assessment Merits Inpatient Hospitalization: For Immediate Safety Plan - Plan Treatment Plan: Name: JAYY CANTU Birthdate: 1980 [id number] monitor in ED annex and re-evaluate in AM.
[2018-12-28] MEDS ORDERED: Dextrose 50% Syringe 50 ML* 25 GM/50 ML SYRINGE IV PUSH PRN (17:13)
[2018-12-28] MEDS ORDERED: Mirtazapine TAB* 15 MG PO SCH (21:00)
[2018-12-28] MEDS ORDERED: Prazosin CAP* 5 MG PO SCH ×2 (21:00)
[2018-12-28] MEDS ORDERED: Prazosin CAP* 1 MG PO SCH (21:00)
[2018-12-28] MEDS ORDERED: Gabapentin CAP(*) 400 MG PO SCH (21:00)
[2018-12-28] MEDS: Insulin LISPRO* 1 UNITS UNIT SUBCUT SCH (21:07)
[2018-12-28] MEDS: Metoprolol Tartrate TAB* 100 MG TAB PO SCH (21:09)
[2018-12-28] MEDS: Mycophenolate Mofetil TAB(*) 500 MG PO SCH (21:09)
[2018-12-28] MEDS: Topiramate TAB(*) 100 MG PO SCH (21:11)
[2018-12-28] MEDS: VILAZODONE 20 MG PO SCH (21:12)
[2018-12-28] MEDS ORDERED: Acetaminophen TAB* 325 MG PO PRN (21:28)
[2018-12-28] MEDS ORDERED: Al Hydrox/Mg Hydrox/Simet LIQ* 30 ML UDC PO PRN (21:28)
[2018-12-29] MEDS ORDERED: Ondansetron ODT TAB* 4 MG ONE (01:30)
[2018-12-29] MEDS ORDERED: hydrOXYzine HCL TAB* 50 MG ONE (01:31)
[2018-12-29] MEDS ORDERED: hydrOXYzine HCL TAB* 50 MG PO ONE (02:30)
[2018-12-29] MEDS ORDERED: Ondansetron TAB* 4 MG PO ONE (02:30)
[2018-12-29] MEDS ORDERED: Loperamide CAP* 2 MG ONE (02:47)
[2018-12-29] MEDS ORDERED: Loperamide CAP* 2 MG PO ONE (08:00)
[2018-12-29] MEDS: Metoprolol Tartrate TAB* 100 MG TAB PO SCH ×2 (08:31→20:20)
[2018-12-29] MEDS: Mycophenolate Mofetil TAB(*) 500 MG PO SCH ×2 (08:31→20:19)
[2018-12-29] MEDS: Topiramate TAB(*) 100 MG PO SCH ×3 (08:31→20:17)
[2018-12-29 08:36] LABS: HDL Cholesterol 35.2 mg/dL
[2018-12-29] MEDS: Insulin LISPRO* 1 UNITS UNIT SUBCUT SCH ×4 (08:42→20:15)
[2018-12-29] MEDS: VILAZODONE 20 MG PO SCH (08:42)
[2018-12-29] MEDS ORDERED: Multivitamins/Minerals TAB PO SCH (09:00)
[2018-12-29] MEDS ORDERED: Loperamide CAP* 2 MG PO PRN (09:36)
[2018-12-29] MEDS ORDERED: Ondansetron ODT TAB* 4 MG PO PRN (09:36)
[2018-12-29] MEDS ORDERED: Albuterol HFA INHALER* 8 gm MDI INH PRN (09:36)
[2018-12-29] MEDS ORDERED: Al Hydrox/Mg Hydrox/Simet LIQ* 30 ML UDC PO PRN (09:36)
[2018-12-29] MEDS ORDERED: SUMAtriptan TAB* 100 MG PO PRN (09:36)
[2018-12-29] MEDS ORDERED: VILAZODONE 20 MG PO SCH (10:00)
[2018-12-29] MEDS ORDERED: Mycophenolate Mofetil TAB(*) 500 MG PO SCH (10:00)
[2018-12-29] MEDS ORDERED: Metoprolol Tartrate TAB* 100 MG TAB PO SCH (10:00)
[2018-12-29] MEDS ORDERED: LoraTADine TAB(NF) 10 MG TAB (AUTOSUB to CETIRIZINE) PO SCH (10:00)
[2018-12-29] MEDS: LORazepam TAB(*) 1 MG PO PRN ×2 (10:06→17:19)
[2018-12-29] MEDS: Cetirizine* 10 MG TAB PO SCH (10:49)
[2018-12-29] MEDS: Spironolactone TAB* 25 MG PO SCH (10:50)
[2018-12-29] MEDS: Gabapentin CAP(*) 300 MG PO SCH (10:50)
[2018-12-29] MEDS: Magnesium Oxide TAB* 400 MG PO SCH (10:50)
[2018-12-29] MEDS: Pantoprazole TAB * 40 MG TAB PO SCH (10:51)
[2018-12-29] MEDS: Lactobacillus Acidophilus* 1 TAB PO SCH (10:51)
[2018-12-29] MEDS: Nystatin TOP POWDER* 15 GM BTL TOPICAL SCH ×3 (10:51→20:20)
[2018-12-29] MEDS: Multivitamins/Minerals TAB PO SCH (10:51)
--- NOTE | 2018-12-29 11:02 | PN ---
BSU: Group Therapy Note - Service Type Service Type: 48171 Group Psychotherapy - Cognitive Behavioral Group Therapy ( CBT):Patient was attentive and participatory in CBT programming this morning, and remained in good behavioral control. Patient expressed positive insights regarding relevant treatment interventions and goals.
[2018-12-29] MEDS ORDERED: Zolpidem TAB* 10 MG PO PRN (11:38)
[2018-12-29] MEDS: Dapsone TAB* 100 MG PO SCH (11:56)
[2018-12-29] MEDS: CMCS:Vilazodone (NF) 40 MG TAB PO SCH ×2 (11:56→20:18)
[2018-12-29] MEDS: Acetaminop/Codeine 30 MG TAB* 1 TAB (300 MG/30 MG) PO PRN (12:58)
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
[2018-12-29] MEDS: Cyclobenzaprine TAB* 10 MG PO PRN (16:13)
[2018-12-29] MEDS ORDERED: Gabapentin CAP(*) 400 MG PO SCH (21:00)
[2018-12-29] MEDS ORDERED: Prazosin CAP* 1 MG PO SCH (21:00)
[2018-12-29] MEDS ORDERED: Melatonin 3 MG TAB PO SCH (21:00)
[2018-12-29] MEDS ORDERED: Mirtazapine TAB* 15 MG PO SCH (21:00)
[2018-12-29] MEDS ORDERED: Prazosin CAP* 5 MG PO SCH (21:00)
[2018-12-29] MEDS ORDERED: NON FORMULARY MED* (Melatonin [Melatonin] 10 MG) PO SCH (21:00)
[2018-12-30] MEDS: Acetaminop/Codeine 30 MG TAB* 1 TAB (300 MG/30 MG) PO PRN ×2 (04:22→12:30)
[2018-12-30 08:39] VITALS: BP 112/89
[2018-12-30] MEDS: Insulin LISPRO* 1 UNITS UNIT SUBCUT SCH ×2 (08:55→12:25)
[2018-12-30] MEDS: Cetirizine* 10 MG TAB PO SCH (08:56)
[2018-12-30] MEDS: Magnesium Oxide TAB* 400 MG PO SCH (08:56)
[2018-12-30] MEDS: Topiramate TAB(*) 100 MG PO SCH (08:56)
[2018-12-30] MEDS: Pantoprazole TAB * 40 MG TAB PO SCH (08:56)
[2018-12-30] MEDS: Spironolactone TAB* 25 MG PO SCH (08:56)
[2018-12-30] MEDS: Gabapentin CAP(*) 300 MG PO SCH (08:56)
[2018-12-30] MEDS: Mycophenolate Mofetil TAB(*) 500 MG PO SCH (08:57)
[2018-12-30] MEDS: Multivitamins/Minerals TAB PO SCH (08:57)
[2018-12-30] MEDS: Lactobacillus Acidophilus* 1 TAB PO SCH (08:58)
[2018-12-30] MEDS: Metoprolol Tartrate TAB* 100 MG TAB PO SCH (08:58)
[2018-12-30] MEDS: Dapsone TAB* 100 MG PO SCH (08:58)
[2018-12-30] MEDS: CMCS:Vilazodone (NF) 40 MG TAB PO SCH (08:59)
[2018-12-30] MEDS: Nystatin TOP POWDER* 15 GM BTL TOPICAL SCH (08:59)
[2018-12-30] MEDS: Cyclobenzaprine TAB* 10 MG PO PRN (09:03)
[2018-12-30] MEDS: LORazepam TAB(*) 1 MG PO PRN (10:57)
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
--- NOTE | 2018-12-30 11:40 | PN ---
BSU: Group Therapy Note - Service Type Service Type: 88961 Group Psychotherapy - Cognitive Behavioral Group Therapy ( CBT):Patient was attentive and participatory in CBT programming this morning, and remained in good behavioral control. Patient expressed positive insights regarding relevant treatment interventions and goals.
--- NOTE | 2018-12-30 14:02 | DS ---
CC: Alejo; Dr. Fabian; [facility] * DISCHARGE SUMMARY: DATE OF ADMISSION: 12/28/18 DATE OF DISCHARGE: 12/30/18 SUPERVISING PSYCHIATRIST: Dr. Stoney Sykes.* (DICTATED BY GURMEET CUELLO NP) DISCHARGE DIAGNOSES: 1. Posttraumatic stress disorder. 2. Borderline personality disorder. 3. Major depressive disorder, recurrent, moderate without psychotic features. CONDITION AT THE TIME OF DISCHARGE: Improved. Psychiatrically cleared. The patient is discharged to home. She reports improved mood and sleep and denies suicidal ideation and passive wish. She has been medication, group, and meal compliant. She reports readiness to be discharged. She is euthymic with full range of affect. She is receptive to praise and recommendations. She expects that her rep payee has mailed a check and she wants to go home to obtain this and go grocery shopping. She requests refill of zolpidem. Denies need for other prescriptions. She is given a mood log and cognitive distortion homework to complete over the weekend. The patient has been safe and in behavioral control. She has been safe on all checks. MENTAL STATUS EXAM: Evelyn is a large black female who is wearing a hospital gown while waiting for her laundry to be received from environmental services. She is cooperative and answers questions fully. Mood is euthymic. Affect has full range. Speech is clear, coherent, and spontaneous. Thought process is logical, goal directed and coherent. There are no perceptual disturbances noted. Eye contact is good. Concentration is good. Memory is 3/3. The patient denies suicidal thinking. She denies auditory or visual hallucinations. Insight is good. Judgment is good. Fund of knowledge is excellent. A. Medications: 1. Acetaminophen with codeine 1 tab p.o. b.i.d. p.r.n. pain. 2. Maalox plus 30 mL p.o. q.4 hours p.r.n. indigestion. 3. Albuterol 2 puffs inhaled q.6 hours p.r.n. wheezing. 4. Cetirizine, which is an auto-sub for loratadine, 10 mg p.o. daily. 5. Cyclobenzaprine 10 mg p.o. b.i.d. p.r.n. muscle spasm. 6. Dapsone 75 mg p.o. daily. 7. Gabapentin 600 mg p.o. q.a.m. 8. Gabapentin 1200 mg p.o. q.h.s. 9. Lispro sliding scale. 10. Lactobacillus 1 tab p.o. daily. 11. Loperamide 2 mg p.o. b.i.d. p.r.n. diarrhea. 12. Lorazepam 1 mg p.o. b.i.d. p.r.n. anxiety. 13. Magnesium oxide 400 mg p.o. daily. 14. Melatonin 10 mg p.o. q.h.s. 15. Metoprolol 100 mg p.o. b.i.d. 16. Mirtazapine 15 mg p.o. q.h.s. 17. Multivitamin 1 tab p.o. daily. 18. Mycophenolate mofetil 1500 mg p.o. b.i.d. 19. Insulin pump monthly to resume at home. 20. Nystatin topical powder t.i.d. skin folds. 21. Ondansetron 4 mg p.o. q.8 hours p.r.n. nausea. 22. Pantoprazole 40 mg p.o. daily. 23. Prazosin 2 mg q.a.m., 8 mg p.o. q.h.s. 24. Spironolactone 50 mg p.o. q.a.m. 25. Sumatriptan 100 mg p.o. daily. 26. Topiramate 100 mg p.o. b.i.d. 27. Vilazodone 20 mg p.o. b.i.d. 28. Zolpidem 10 mg p.o. q.h.s. p.r.n. insomnia. B. Diet: Consistent carbohydrate diet, low fat, low cholesterol. C. Activity: Ambulation as tolerated. Tobacco cessation is not applicable. Patient is no longer smoking. There are no pending labs or diagnostic studies. D. Followup Care: The patient will follow up with [facility] next week; Dr. Fabian, Endocrinology, next week; and primary care, Dr. Dhillon within a month. She also has an appointment on Wednesday, next week, to obtain CPAP at [facility] in [place]. E. Substance use followup is not applicable. HOSPITAL COURSE: Part A: Reason for admission: The patient presented to the emergency department after overdose on prescribed naproxen. Chief Complaint: "I'm still in a dark place." History of present illness: Evelyn is a 38-year-old female, , domiciled, mentally disabled, who was recently discharged from our unit on 12/26. She returned to the emergency department on 12/28/18 after taking an overdose on prescribed naproxen. She states she was talking with her therapist at [facility] and had plans to overdose. She clarified this. She was encouraged to take her morning medications but was hesitant to do so as she did not want to give herself access to her medications. She did as the therapist directed, took her medications and impulsively took the overdose. When the therapist called back, the patient reported what she had done and therapist utilized 9.41 and EMS did have her brought to the hospital. The patient reported continued depressive symptoms, poor sleep, and loneliness. She reported considering changing to [facility] but is anxious about this due to difficulty changing providers. She is receptive to information about using a trial period for [facility]. She reports resuming her insulin pump while at home the past few days. She presents as dysphoric but pleasant. She is receptive to information about her improvement and recommendations to have a brief hospitalization. The patient reported continued nightmares impacting the sleep and sadness in regards to her sister's failing health. Patient denies HI or . She denies a history of violent or aggressive behavior. Part B: Psychiatric Treatment Rendered: The patient was admitted to adult behavioral services unit on voluntary status. Code status was full. She was placed on 15-minute checks for her safety. She eagerly started to participate in supportive milieu, individual sessions with staff and psychoeducational groups. We continued outpatient medications. The patient was placed on consistent carbohydrate diet and was compliant with this. I discussed diabetes management and elevated WBC with hospitalist. She was noted to have history of chronic leukocytosis and much improved A1c, therefore no further recommendations. The patient was informed of all of the above and praised for her efforts in managing medical and mental health diagnoses. The patient has been pleasant and generally cooperative. She states understanding of recommendation for brief hospitalization. GURMEET CUELLO, APNS [id number]/[facility] #: [id number] HOLLIE
[2019-01-27] MEDS ORDERED: ERENUMAB AOOE 70 MG SUBCUT SCH (09:00)
== END 2018-12-30 14:17 | disposition home or self-care (01) | DRG 755 ==
LOC: ED 10:44 → BSU 19:24
PROVIDERS: ADMIT Psychiatry & Neurology Psychiatry; ATTEND Psychiatry & Neurology Psychiatry
PROC: GZHZZZZ Group Psychotherapy (ICD-10-PCS; principal; 2018-12-28)
DX: F43.10 Post-traumatic stress disorder, unspecified (principal); F33.1 Major depressive disorder, recurrent, moderate; Z68.42 Body mass index [BMI] 45.0-49.9, adult; F60.3 Borderline personality disorder; E78.00 Pure hypercholesterolemia, unspecified; J45.909 Unspecified asthma, uncomplicated; G47.30 Sleep apnea, unspecified; K21.9 Gastro-esophageal reflux disease without esophagitis; K58.9 Irritable bowel syndrome, unspecified; K31.84 Gastroparesis; M17.0 Bilateral primary osteoarthritis of knee; M46.90 Unspecified inflammatory spondylopathy, site unspecified; G43.909 Migraine, unspecified, not intractable, without status migrainosus; F41.0 Panic disorder [episodic paroxysmal anxiety]; F17.210 Nicotine dependence, cigarettes, uncomplicated; D72.829 Elevated white blood cell count, unspecified; E10.43 Type 1 diabetes mellitus with diabetic autonomic (poly)neuropathy; Z62.810 Personal history of physical and sexual abuse in childhood; E66.01 Morbid (severe) obesity due to excess calories; Z90.49 Acquired absence of other specified parts of digestive tract; Z82.49 Family history of ischemic heart disease and other diseases of the circulatory system; Z83.3 Family history of diabetes mellitus; Z86.14 Personal history of Methicillin resistant Staphylococcus aureus infection; Z88.8 Allergy status to other drugs, medicaments and biological substances; Z91.048 Other nonmedicinal substance allergy status; Z88.2 Allergy status to sulfonamides; Z91.030 Bee allergy status; Z81.1 Family history of alcohol abuse and dependence
CPT/HCPCS: 36415; 80053; 80061; 80307; 80320; 80329; 81003; 83036; 83605; 84443; 84702; 85025; 90853; 93005; 99222; 99238; 99284; A9270-GY; G0480; J2405

== ENCOUNTER 2019-01-27 20:41 | Emergency (ER) | payer OTHER ==
[2019-01-27] MEDS ORDERED: NS 0.9% 1000 ML** 1,000 ML IV ONE (20:48)
--- NOTE | 2019-01-27 20:58 | ED ---
Complex/Multi-Sys Presentation - HPI Summary HPI Summary: A 38 y/o F brought in by ambulance presents to ED for abnormal lab values this date. Pt had routine blood work done per Dr. Maradiaga for her vasculitis. The on- call doctor from his office called patient and told her to go to ED because her lab work was abnormal, including elevated WBC: 19.4. Patient states feeling OK at bedside. She denies recent cough, fever, sore throat, cold, n/v, rash, urinary symptoms. She denies tick bite. She states recent hospitalization for depression. Medications discussed. - History Of Current Complaint Chief Complaint: EDGeneral Time Seen by Provider: 01/27/19 20:52 Hx Obtained From: Patient Onset/Duration: Still Present Timing: Constant Severity Currently: None Severity Initially: Mild Associated Signs And Symptoms: Positive: Immunocompromised, Other - neg: sore throat, rash. Negative: Cough, Nausea, Vomiting, Dysuria, Fever - Allergies/Home Medications Allergies/Adverse Reactions: Allergies Allergy/AdvReac Type Severity Reaction Status Date / Time Adhesive Tape Allergy Rash Verified 01/27/19 13:52 asenapine Allergy Rash Verified 01/27/19 13:52 bee venom protein (honey bee) Allergy Anaphylatic Verified 01/27/19 13:52 Shock lurasidone [From Latuda] Allergy Hives Verified 01/27/19 13:52 metoclopramide [From Reglan] Allergy Abdominal Verified 01/27/19 13:52 Pain paclitaxel [From Taxol] Allergy Hives Verified 01/27/19 13:52 Sulfa (Sulfonamide Allergy Unknown Verified 01/27/19 13:52 Antibiotics) Reaction Details sulfamethoxazole Allergy Hives Verified 01/27/19 13:52 [From Bactrim] trimethoprim [From Bactrim] Allergy Hives Verified 01/27/19 13:52 nalbuphine [From Nubain] AdvReac Rash Verified 01/27/19 13:52 paroxetine [From Paxil] AdvReac Vomiting Verified 01/27/19 13:52 tramadol AdvReac Rash Verified 01/27/19 13:52 "metal" Allergy Swelling Uncoded 01/27/19 13:52 zepeda Allergy Nausea And Uncoded 01/27/19 13:52 Vomiting PMH/Surg Hx/FS Hx/Imm Hx Previously Healthy: No Endocrine/Hematology History: Reports: Hx Diabetes - type 2 dm on insulin, Hx Anemia Denies: Hx Thyroid Disease, Other Endocrine/Hematological Disorders Cardiovascular History: Reports: Hx Angina, Hx Hypercholesterolemia, Other Cardiovascular Problems/Disorders - vasculitis. tachycardia Denies: Hx Coronary Artery Disease, Hx Hypertension, Hx Myocardial Infarction , Hx Pacemaker/ICD, Hx Peripheral Vascular Disease, Hx Valvular Heart Disease Respiratory History: Reports: Hx Asthma, Hx Sleep Apnea Denies: Hx Chronic Obstructive Pulmonary Disease (COPD), Other Respiratory Problems/Disorders GI History: Reports: Hx Crohn's Disease, Hx Gastroesophageal Reflux Disease, Hx Irritable Bowel, Other GI Disorders - gastroparesis Denies: Hx Ulcer History: Denies: Hx Dialysis, Hx Renal Disease, Other Problems/Disorders Musculoskeletal History: Reports: Hx Arthritis - back and knees, Other Musculoskeletal History - Ulnar nerve compression Right arm Denies: Hx Osteoporosis Sensory History: Reports: Hx Contacts or Glasses Denies: Hx Legally Blind, Hx Deafness, Hx Hearing Aid Opthamlomology History: Reports: Hx Contacts or Glasses Denies: Hx Legally Blind Neurological History: Reports: Hx Headaches, Hx Migraine Denies: Hx Seizures, Hx Transient Ischemic Attacks (TIA), Other Neuro Impairments/Disorders Psychiatric History: Reports: Hx Anxiety, Hx Depression, Hx Panic Disorder - PTSD, Hx Post Traumatic Stress Disorder, Hx Inpatient Treatment, Hx Community Mental Health Tx, Hx Bipolar Disorder, Hx Suicide Attempt, Other Psychiatric Issues/Disorders - Borderline Personality Disorder Denies: Hx Attention Deficit Hyperactivity Disorder, Hx Eating Disorder, Hx Schizophrenia, Hx of Violent Episodes Against Others - Surgical History Surgery Procedure, Year, and Place: Cholecystectomy [facility]. Cardiac Catherterization-NO STENT [facility] 2005, [place] [facility] [place] ulnar nerve release 2018, [facility] Anesthesia Reactions: No - Immunization History Date of Tetanus Vaccine: utd Date of Influenza Vaccine: fall 2016 Infectious Disease History: No Infectious Disease History: Reports: Hx of Known/Suspected MRSA - treated. noncarrier now Denies: Hx Hepatitis, Hx Human Immunodeficiency Virus (HIV), Traveled Outside the [place] in Last 30 Days - Family History Known Family History: Positive: Cardiac Disease, Diabetes, Other - blod clots Negative: Hypertension - Social History Occupation: Unemployed Lives: Alone Alcohol Use: Occasionally Alcohol Amount: none today Hx Substance Use: Yes Substance Use Type: Reports: Marijuana Substance Use Comment - Amount & Last Used: medical marijuana Hx Tobacco Use: Yes Smoking Status (MU): Former Smoker Type: Cigarettes Amount Used/How Often: 2 cigarettes/day Length of Time of Smoking/Using Tobacco: 4 CIG/DAY 2 YEARS Have You Smoked in the Last Year: Yes Review of Systems - ROS Summary Review of Systems Summary: Pos: Abnormal lab values [employer] Negative: Fever Negative: Sore Throat Negative: Cough Negative: Vomiting, Nausea Negative: dysuria Negative: Rash All Other Systems Reviewed And Are Negative: Yes Physical Exam - Summary Physical Exam Summary: Appearance: Well appearing, no pain distress, morbidly obese Skin: warm, dry, reflects adequate perfusion, no rash, and no rash or lesion in skin fold of abd Head/face: normal Eyes: EOMI, RICO ENT: mucous membranes moist Neck: supple, non-tender Respiratory: CTA, breath sounds present Cardiovascular: Heart is tachy but regular, pulses symmetrical Abdomen: non-tender, soft Bowel Sounds: present Musculoskeletal: normal, strength/ROM intact, no LE edema Neuro: normal, sensory motor intact, A&Ox3 Triage Information Reviewed: Yes Vital Signs On Initial Exam: Initial Vitals Temp Pulse Resp BP Pulse Ox 97.6 F 98 17 126/103 97 01/27/19 20:52 01/27/19 20:52 01/27/19 20:52 01/27/19 20:52 01/27/19 20:52 Vital Signs Reviewed: Yes Diagnostics - Vital Signs Vital Signs Temp Pulse Resp BP Pulse Ox 01/27/19 20:52 97.6 F 98 17 126/103 97 - Laboratory Result Diagrams: 01/27/19 21:05 01/27/19 21:05 Lab Statement: Any lab studies that have been ordered have been reviewed, and results considered in the medical decision making process. - Radiology CXR Radiology Interpretation Completed By: ED Physician Summary of Radiographic Findings: Negative - EKG 21:17 Cardiac Rate: NL - 87 bpm EKG Rhythm: Sinus Rhythm ST Segment: Normal Summary of EKG Findings: LVH criteria, nml axis, normal ST. Complex Multi-Symp Course/Dx Course Of Treatment: Nurse's note reviewed. Patient sent in with elevated WBC. She also was noted to have a low bicarbonate. The patient's blood sugar was minimally elevated and she is insulin-dependent diabetic. She is well-known to the ER. She has absolutely no complaints today and is feeling well. Her urine is negative as is her chest x-ray. Blood cultures were drawn. In review of her laboratories. WBC typically results around 19. This may be related to her chronic vasculitis. Blood cultures were drawn however given the patient is on CellCept. She was hydrated here and was feeling well. Her blood sugars in good control. - Diagnoses Differential Diagnoses/HQI/PQRI: Metabolic Abnormality, Sepsis, Urinary Tract Infection, Other - Pneumonia Provider Diagnoses: Leukocytosis, History of vasculitis - Physician Notifications Discussed Care Of Patient With: Deyvi Quintero - hospitalist Time Discussed With Above Provider: 22:30 Instructed by Provider To: Other - Agrees with blood cultures and discharge. Discharge - Sign-Out/Discharge Documenting (check all that apply): Patient Departure - D/C Patient Received Moderate/Deep Sedation with Procedure: No - Discharge Plan Condition: Improved Disposition: HOME Patient Education Materials: Leukocytosis (ED) Referrals: Kimberlyn Dhillon MD [Primary Care Provider] - Mike Maradiaga MD [Medical Doctor] - Additional Instructions: Drink plenty of fluids. Return to the ER with difficult to control blood sugars , fever, feeling poorly, worse or other concerns. Drink enough water that your urine stays clear. Call your doctor first thing on Wednesday to schedule prompt follow-up. Call Dr Maradiaga also for follow up. - Billing Disposition and Condition Condition: IMPROVED Disposition: Home - Attestation Statements Document Initiated by Natalee: Yes Documenting Scribe: Carley Bear Provider For Whom Natalee is Documenting (Include Credential): Dr. Lauro Ramirez MD Scribe Attestation: I, karen Rigginsed for Dr. Lauro Ramirez MD on 01/28/19 at 0108. Scribe Documentation Reviewed: Yes Provider Attestation: The documentation as recorded by the Carley ruelas accurately reflects the service I personally performed and the decisions made by me, Dr. Lauro Ramirez MD Status of Scribe Document: Viewed
[2019-01-27 21:12] LABS: Hematocrit 40 % (35-47); Hemoglobin 13.1 g/dL (12.0-16.0); Mean Corpuscular HGB Conc 33 g/dL (31-36); Mean Corpuscular Hemoglobin 29 pg (27-31); Mean Corpuscular Volume 89 fL (80-97); Mean Platelet Volume 6.6 fL (7.4-10.4); Platelet Count 419 10^3/uL (150-450); Red Blood Count 4.44 10^6 /uL (3.70-4.87); Red Cell Distribution Width 13 % (10-15); White Blood Count 21.1 10^3/uL (3.5-10.8)
[2019-01-27 21:29] LABS: Anion Gap 11 mmol/L (2-11); BUN/Creatinine Ratio 19.4 (8-20); Blood Urea Nitrogen 12 mg/dL (6-24); CO2 Carbon Dioxide 18 mmol/L (22-32); Calcium 9.7 mg/dL (8.6-10.3); Chloride 104 mmol/L (101-111); EGFR African American 131.8 (>60); EGFR Non-African American 108.9 (>60); Glucose 147 mg/dL (70-100); Potassium 3.6 mmol/L (3.5-5.0); Sodium 133 mmol/L (135-145)
[2019-01-27 21:35] LABS: HCG Pregnancy < 0.60 mIU/mL
[2019-01-27 21:44] LABS: ABS Basophils 0.1 10^3/ul (0-0.2); ABS Eosinophils 0.2 10^3/ul (0-0.6); ABS Lymphocytes 4.8 10^3/ul (1.0-4.8); ABS Monocytes 1.6 10^3/ul (0-0.8); ABS Neutrophils 14.3 10^3/ul (1.5-7.7); Eosinophil % 1.1 %; Lymphocyte % 22.9 %
[2019-01-27 22:07] LABS: Urine Appearance Cloudy; Urine Bacteria Absent (Absent); Urine Bilirubin Negative (Negative); Urine Blood Negative (Negative); Urine Color Amber; Urine Glucose Negative (Negative); Urine Ketones Negative (Negative); Urine Nitrite Negative (Negative); Urine Protein 1+(30 mg/dL) (Negative); Urine Red Blood Cell Trace(0-2/hpf) (Absent); Urine Urobilinogen Positive (Negative); Urine White Blood Cell Trace(0-5/hpf) (Absent)
[2019-01-27 23:27] VITALS: BP 109/72
--- NOTE | 2019-01-29 08:16 | PN ---
Progress Note - Progress Note Date of Service: 01/27/19 Note: Pt. seen on 01/27/19 after being referred to ER from PCP. Pt. has a hx of vasculitis and is on cellcept. Pt. has a chronically high WBC. Pt. had no complaints in ED on 01/27. She did have BC drawn at that time. 08/26 bottles growing gram positive cocci resembling staph in preliminary report. I called and spoke with pt. today at 0810 and discussed results. Pt. states she is feeling well without fever or any symptoms. Suspect contaminant. Pt. to f.u with PCP next week and return to ER for fever or sick symptoms. Pending final culture.
== END 2019-01-27 23:25 | disposition home or self-care (01) ==
LOC: ED 20:41
DX: D72.829 Elevated white blood cell count, unspecified (principal); I77.6 Arteritis, unspecified; Z87.891 Personal history of nicotine dependence; Z86.14 Personal history of Methicillin resistant Staphylococcus aureus infection
CPT/HCPCS: 36415; 71046; 80048; 81003; 81015; 82803; 83605; 84484; 84702; 85025; 87040; 87086; 87150; 93005; 96374; 99284

== ENCOUNTER 2019-04-19 09:51 | Observation (INO) | payer OTHER ==
[~2019-04-19 09:51] MED LIST changes: -Buffered Lidocaine 0.9% SYRIN* 5 ML/SYR SYRINGE INTRADERM ONE; +Buffered Lidocaine 1% SYRIN* 1 ML/SYRINGE INTRADERM ONE; +Famotidine IV* 10 MG/ML 2 ML (20 mg) IV ONE
[2019-04-19] MEDS ORDERED: ceFAZolin 1 GM ADVAN(*) 1 GM ADDV.VIAL IVPB ONE (10:26)
[2019-04-19] MEDS ORDERED: Buffered Lidocaine 1% SYRIN* 1 ML/SYRINGE INTRADERM ONE (10:27)
[2019-04-19] MEDS ORDERED: Famotidine IV* 10 MG/ML 2 ML (20 mg) ONE (10:27)
[2019-04-19] MEDS ORDERED: ceFAZolin 2 GM in NS PREMIX(*) 2 GM/100 ML BAG IVPB ONE (10:27)
[2019-04-19] MEDS: Lactated Ringers 1000 ML Bag* 1,000 ML IV SCH ×2 (10:51→17:34)
[2019-04-19] MEDS ORDERED: Lidocaine 1% MPF ** 5 ML VIAL ONE (12:22)
[2019-04-19] MEDS ORDERED: ROPIVACAINE 5 MG/ML 30 ML BTL (0.5%) ONE ×2 (12:22→12:35)
[2019-04-19] MEDS ORDERED: Midazolam* 1 MG/ML 5 ML VIAL (5 MG) ONE (12:31)
[2019-04-19] MEDS ORDERED: fentaNYL* 50 MCG/ML 2 ML VIAL (100 MCG VIAL) ONE (12:56)
[2019-04-19] MEDS ORDERED: Bupivacaine 0.25% SDV PF* 10 ML VIAL INJ ONE (13:18)
[2019-04-19] MEDS ORDERED: Propofol* 10 MG/ML 20 ML BTL ONE (13:50)
[2019-04-19] MEDS ORDERED: Succinylcholine* 20 MG/ML 10 ML VIAL ONE (13:50)
[2019-04-19] MEDS ORDERED: Ketorolac INJ* 30 MG/ML 1 ML VIAL ONE (13:50)
[2019-04-19] MEDS ORDERED: Lidocaine 2% PF * 5 ML VIAL ONE (13:50)
[2019-04-19] MEDS ORDERED: Dexamethasone IV* 4 MG/ML 1 ML (4 MG) ONE (13:50)
[2019-04-19] MEDS ORDERED: Ondansetron INJ* 2 MG/ML VIAL ONE (13:50)
[2019-04-19] MEDS ORDERED: DiMENhydriNATE IV* 50 MG/ML VIAL ONE (13:50)
[2019-04-19] MEDS ORDERED: DiMENhydriNATE IV* 50 MG/ML VIAL IV PUSH PRN (14:48)
[2019-04-19] MEDS ORDERED: Acetaminophen TAB* 325 MG PO PRN (14:48)
[2019-04-19] MEDS ORDERED: HYDROmorphone INJ1* 1 MG/ML SYRINGE IV PRN (14:48)
[2019-04-19] MEDS ORDERED: Ondansetron ODT TAB* 4 MG PO PRN (16:10)
[2019-04-19] MEDS ORDERED: Ondansetron INJ* 2 MG/ML VIAL IV PRN (16:10)
[2019-04-19] MEDS ORDERED: Cyclobenzaprine TAB* 10 MG PO PRN (16:10)
[2019-04-19] MEDS ORDERED: oxyCODONE/Acetamin 5/325 MG* TAB PO PRN (16:10)
[2019-04-19] MEDS ORDERED: Morphine INJ* 2 MG/ML 1 ML SYRINGE (TWO MG - NEW SYRINGE VERSION) IV PRN (16:10)
[2019-04-19] MEDS ORDERED: diPHENhydraMINE PO* 25 MG PO PRN ×2 (16:10→16:17)
[2019-04-19] MEDS ORDERED: diPHENhydraMINE IV* 50 MG/ML 1 ml VIAL (BENADRYL) IV PRN (16:10)
[2019-04-19] MEDS ORDERED: Calcium Carbonate CHEW TAB* 500 MG (TUMS) PO PRN (16:17)
[2019-04-19] MEDS ORDERED: Cetirizine* 10 MG TAB PO PRN (16:17)
[2019-04-19] MEDS ORDERED: LORazepam TAB(*) 1 MG PO PRN (16:17)
[2019-04-19] MEDS ORDERED: Albuterol HFA INHALER* 8 gm MDI INH PRN (16:17)
[2019-04-19] MEDS ORDERED: Docusate CAP* 100 MG PO PRN (16:17)
[2019-04-19] MEDS ORDERED: ACETAMINOPHEN PO PRN (16:17)
[2019-04-19] MEDS ORDERED: SUMAtriptan TAB* 100 MG PO PRN (16:17)
[2019-04-19] MEDS ORDERED: EPINEPHRINE 1 MG/ML 1 ML VIAL IM PRN (16:17)
[2019-04-19] MEDS ORDERED: BUTALBITAL PO PRN (16:17)
[2019-04-19] MEDS ORDERED: Loperamide CAP* 2 MG PO PRN (16:17)
[2019-04-19] MEDS ORDERED: Artificial Tears* 15 ML BTL BOTH EYES PRN (16:17)
[2019-04-19] MEDS ORDERED: DICLOFENAC POTASSIUM 50 MG PO SCH (16:30)
[2019-04-19] MEDS ORDERED: Acetaminophen / Codeine* #3 (300 MG/30 MG) TAB PO PRN (16:59)
[2019-04-19] MEDS ORDERED: Insulin LISPRO* 1 UNITS UNIT SUBCUT SCH (17:00)
[2019-04-19] MEDS ORDERED: Lactated Ringers 1000 ML Bag* 1,000 ML IV SCH (17:00)
[2019-04-19] MEDS ORDERED: BUTALBITAL ACETAMINOPHN PO PRN (17:01)
[2019-04-19] MEDS ORDERED: Zolpidem TAB* 10 MG PO PRN (17:13)
[2019-04-19] MEDS: Acetaminophen TAB* 325 MG PO SCH (17:40)
[2019-04-19] MEDS: Ciprofloxacin 0.3% OPTH.SOL* BTL RIGHT EYE SCH ×2 (20:10→23:01)
[2019-04-19] MEDS ORDERED: PRAZOSIN HCL PO SCH (21:00)
[2019-04-19] MEDS ORDERED: Zolpidem TAB* 10 MG PO SCH (21:00)
[2019-04-19] MEDS ORDERED: Acetaminophen / Codeine* #3 (300 MG/30 MG) TAB PO SCH (21:00)
[2019-04-19] MEDS ORDERED: Atorvastatin* 80 MG TAB PO SCH (21:00)
[2019-04-19] MEDS ORDERED: Gabapentin CAP(*) 400 MG PO SCH (21:00)
[2019-04-19] MEDS ORDERED: Mirtazapine TAB* 15 MG PO SCH (21:00)
[2019-04-19] MEDS ORDERED: Naproxen TAB* 250 MG PO PRN (21:00)
[2019-04-19] MEDS ORDERED: DULoxetine DR CAP* 20 MG CAP.DR PO SCH (21:00)
[2019-04-19] MEDS ORDERED: Prazosin CAP* 5 MG PO SCH (21:00)
[2019-04-19] MEDS ORDERED: Prazosin CAP* 1 MG PO SCH (21:00)
[2019-04-19] MEDS ORDERED: (Melatonin [Melatonin] 10 MG) PO SCH (21:00)
[2019-04-19] MEDS ORDERED: Insulin GLARGINE(*) 1 UNITS UNIT SUBCUT ONE (21:22)
[2019-04-19] MEDS ORDERED: Dextran 70/Hypromellose Tears Eye Drops 15 ml BTL (for Artificials Tears) BOTH EYES PRN (21:27)
[2019-04-19] MEDS: Mometasone/Formoter 200/5 MDI INH SCH (22:30)
[2019-04-19] MEDS: ceFAZolin 1 GM ADVAN(*) 1 GM in NS 0.9% 50 ML* 50 ML IVPB SCH (22:50)
[2019-04-19] MEDS: Dicyclomine CAP* 10 MG PO SCH (22:52)
[2019-04-19] MEDS: Docusate CAP* 100 MG PO SCH (22:53)
[2019-04-19] MEDS: Magnesium Hydroxide LIQ* 30 ML UDC PO SCH (22:55)
[2019-04-19] MEDS: oxyCODONE/Acetamin 5/325 MG* TAB PO PRN (22:56)
[2019-04-19] MEDS: Metoprolol Tartrate TAB* 100 MG TAB PO SCH (22:56)
[2019-04-19] MEDS: Topiramate TAB(*) 100 MG PO SCH (22:57)
[2019-04-19] MEDS: Mycophenolate Mofetil TAB(*) 500 MG PO SCH (22:58)
[2019-04-19] MEDS: Insulin LISPRO* 1 UNITS UNIT SUBCUT SCH (23:04)
--- NOTE | 2019-04-20 00:11 | HP ---
HISTORY AND PHYSICAL: DATE OF ADMISSION: 04/19/19 CHIEF COMPLAINT: Post right rotator cuff repair, unable to return home, and utilize and self-administer her CPAP. HISTORY OF PRESENT ILLNESS: This is a 38-year-old female with multiple medical comorbid condition, was admitted for elective right shoulder arthroscopy and decompression with a rotator cuff repair. She tolerated the procedure well. However, postoperatively, she is in limited range of motion of her right shoulder due to her surgery, hence which hindered her discharge home as she is not able to place her CPAP mask on. Orthopedic service requested for us to evaluate the patient and given her multiple and magnitude of her medical condition, she will be admitted to our service overnight under observation. We placed her on CPAP and pending her orthopedic progress in the morning, if she does well and able to self- administer her CPAP, she will be probably discharged home, otherwise she may require short-term rehab. The patient was seen in the PACU recovery room. She reports adequate pain control. She has no symptomatology. No complaints, doing fairly well. Vitals are stable. PAST MEDICAL HISTORY: 1. Diabetes mellitus. 2. Anxiety. 3. Depression. 4. Morbid obesity. 5. Obesity hyperventilation and sleep apnea. 6. Hypertension. 7. Vasculitis. 8. IBS. 9. Hyperlipidemia. 10. Borderline personality disorder. 11. Asthma. 12. Arthritis. 13. Anemia. 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 PAST SURGICAL HISTORY: 1. Cholecystectomy. 2. Heart catheterization. 3. Electroconvulsive therapy for depression. 4. Ulnar nerve decompression. MEDICATIONS: 1. Nystatin p.r.n. swish and swallow. She has a p.r.n. prescription at home. 2. Basaglar 36 units daily. 3. Aimovig 70 mg/cc once a month. 4. Admelog via pump. 5. Metoprolol 100 mg b.i.d. 6. Sumatriptan 100 mg by mouth p.r.n. for headache. 7. Topamax 100 mg b.i.d. 8. Dapsone 25 mg 3 tabs per day. 9. Nexplanon 68 mg implant. 10. Loratadine 10 mg daily. 11. Aldactone 50 mg daily. 12. Lipitor 80 mg every night. 13. Imodium p.r.n. 14. CellCept 500 two tabs by mouth twice a day. 15. Bentyl 10 b.i.d. 16. EpiPen p.r.n. 17. Tums 500 three times a day as needed. 18. Ventolin p.r.n. 19. Naproxen 500 mg every 12 hours. 20. Benadryl p.r.n. 21. Lorazepam 1 mg twice a day. 22. Prazosin 2 mg, she takes 4 capsules at bed time. 23. Melatonin. 24. Ambien 10 mg at bed time. 25. Breo 200/25 one inhaler daily. 26. Zyrtec 10 daily. 27. Artificial Tears. 28. Tylenol with codeine. 29. Fioricet 50/325 one tab every 8 hours p.r.n. for headache. 30. Diclofenac 50 mg t.i.d. 31. Medical marijuana. 32. Gabapentin 600 one in the morning, two at night. 33. Pantoprazole 40 daily. 34. Remeron 15 at bed time. 35. Duloxetine 60 mg every morning. 36. Duloxetine 20 mg at night. ALLERGIES: She is allergic to ASENAPINE, BEE STING, PAXIL, SULFA, ANTIBIOTIC, TRAMADOL, LATUDA, BACTRIM, ADHESIVE TAPE, REGLAN, SAPHRIS, NALBUPHINE. FAMILY HISTORY: Significant for CHF, diabetes, hypertension, CVA and NE. SOCIAL HISTORY: She is unemployed on disability. She lives in [place]. She is a former smoker, quit about 6 months ago. Prior to that she smoked about half pack a day. No illicit drug use. Denies any alcohol use. She uses medical marijuana. PHYSICAL EXAMINATION GENERAL: She was sitting in the recovery room in her recliner, awake, alert, tolerating already sip of ice, clear, and water, provides history, in no distress. She does have her right shoulder in a sling immobilized. HEENT: Head and Neck: Normocephalic, atraumatic. Supple. Extraocular muscle intact. Moist mucous membrane. LUNGS: Distant breath sounds due to body habitus, morbidly obese. CARDIOVASCULAR: S1, S2, regular rate. No murmur appreciated. ABDOMEN: Obese, positive bowel sounds, soft, nontender, nondistended. [employer]: Follow simple command. Alert, awake, oriented, moving all extremity except her right upper due to immobilization from the sling. DIAGNOSTIC STUDIES/LAB DATA: Fingerstick, otherwise none available as it was elective procedure. IMPRESSION: This is a 38-year-old female who came in for an elective right shoulder rotator cuff repair, was asked by orthopedics service to admit the patient to medical service as she is not able to be discharged from the recovery room due to her need of CPAP and she is unable to administer her at home due to limitation of her shoulder. Therefore she is admitted to medical service under observation for: 1. Obstructive sleep apnea. 2. Right shoulder rotator cuff repair. 3. Diabetes mellitus, on insulin pump. 4. Anxiety and depression. 5. Obesity. 6. Hyperlipidemia. 7. Border personality disorder. 8. Asthma. 9. Arthritis. PLAN: 1. For her obstructive sleep apnea, the patient will be admitted to our respiratory therapist to apply CPAP tonight. If her mobility hinder her discharge as well tomorrow and she cannot apply her CPAP at home, will probably require a placement for short-term rehab. 2. Rotator cuff repair. Will defer management to Orthopedic. 3. For diabetes, we will discontinue the pump and was put her on a sliding scale and we will place her on Lantus 36 units while she is off the pump. Otherwise continue the remaining of her medications as per home. [id number]/[facility] #: [id number] HOLLIE
[2019-04-20] MEDS: Acetaminophen TAB* 325 MG PO SCH ×2 (01:50→09:26)
[2019-04-20 04:43] LABS: Hematocrit 37 % (35-47); Hemoglobin 12.3 g/dL (12.0-16.0); Mean Platelet Volume 6.4 fL (7.4-10.4); Platelet Count 373 10^3/uL (150-450)
[2019-04-20 04:59] LABS: BUN/Creatinine Ratio 17.9 (8-20); Calcium 8.6 mg/dL (8.6-10.3); EGFR African American 148.2 (>60); EGFR Non-African American 122.5 (>60); Potassium 4.1 mmol/L (3.5-5.0)
[2019-04-20] MEDS: oxyCODONE/Acetamin 5/325 MG* TAB PO PRN ×3 (05:05→13:38)
[2019-04-20] MEDS: ceFAZolin 1 GM ADVAN(*) 1 GM in NS 0.9% 50 ML* 50 ML IVPB SCH ×2 (06:20→13:10)
[2019-04-20] MEDS: Ciprofloxacin 0.3% OPTH.SOL* BTL RIGHT EYE SCH ×3 (06:28→13:35)
[2019-04-20] MEDS ORDERED: Prazosin CAP* 1 MG PO SCH (09:00)
[2019-04-20] MEDS ORDERED: DAPSONE 75 MG PO SCH (09:00)
[2019-04-20] MEDS ORDERED: Cetirizine* 10 MG TAB PO SCH (09:00)
[2019-04-20] MEDS ORDERED: Gabapentin CAP(*) 300 MG PO SCH (09:00)
[2019-04-20] MEDS ORDERED: Spironolactone TAB* 25 MG PO SCH (09:00)
[2019-04-20] MEDS ORDERED: DULoxetine DR CAP* 60 MG CAP.DR PO SCH (09:00)
[2019-04-20] MEDS ORDERED: Pantoprazole TAB * 40 MG TAB PO SCH (09:00)
[2019-04-20] MEDS: Docusate CAP* 100 MG PO SCH (09:27)
[2019-04-20] MEDS: Metoprolol Tartrate TAB* 100 MG TAB PO SCH (09:27)
[2019-04-20] MEDS: Topiramate TAB(*) 100 MG PO SCH (09:27)
[2019-04-20] MEDS: Dicyclomine CAP* 10 MG PO SCH (09:28)
[2019-04-20] MEDS: Magnesium Hydroxide LIQ* 30 ML UDC PO SCH (09:28)
[2019-04-20] MEDS: Mycophenolate Mofetil TAB(*) 500 MG PO SCH (09:29)
[2019-04-20] MEDS: Mometasone/Formoter 200/5 MDI INH SCH (09:33)
[2019-04-20] MEDS: Insulin LISPRO* 1 UNITS UNIT SUBCUT SCH ×2 (09:39→13:10)
--- NOTE | 2019-04-20 10:31 | OP ---
CC: PCP OPERATIVE REPORT: DATE OF OPERATION: 04/19/19 DATE OF : 84 ATTENDING SURGEON: Jak Booker MD. ANESTHESIOLOGIST: Dr. Pedro. ANESTHESIA: General interscalene block. PRE-OP DIAGNOSIS: Right shoulder impingement. POST-OP DIAGNOSIS: Right shoulder partial-thickness tear with a ruptured biceps. OPERATIVE PROCEDURES: 1. Right shoulder arthroscopy with limited debridement. 2. Subacromial decompression with acromioplasty. 3. Rotator cuff repair with Regeneten patch. COMPLICATIONS: None. ESTIMATED BLOOD LOSS: Minimal. INDICATIONS: Evelyn Leigh is a 38-year-old female with multiple medical problems. She is morbidly obese. She presents with right shoulder pain, which has been going on for several years, treated wi th conservatively. She had failed conservative management and elected to proceed with surgical treat ment. We underwent risk optimization by her various doctors and her A1c is acceptable. Her stress t est was negative. After extensive discussion of the risks and benefits including bleeding, infection , damage to nerves; vessels; surrounding structures, wound nonhealing, persistent pain, need for furt her surgery, scarring, stiffness, incomplete relief of symptoms, and risk of anesthesia, she has elec ayse to proceed with operative management. DESCRIPTION OF PROCEDURE: The patient was greeted in the preoperative area by the attending surgeon. Correct extremity was marked and consent was confirmed. The patient underwent interscalene nerve b lock by the anesthesiologist, after which she was brought back to the operating suite and she was triston alexis in the supine position on the operating table. She then underwent general anesthesia with endotr acheal intubation, after which she was carefully placed in the left lateral decubitus position with a ll bony prominences padded. She was secured with a pegboard. The right arm was draped unsterile wit h 15 pounds of traction. Due to the patient's size, the right shoulder was then prepped and draped i n the usual sterile fashion beginning with chlorhexidine soap, scrub, and alcohol wipe, and a final p rep with ChloraPrep. After appropriate surgical pause indicating side, site, procedure, and administration of antibiotics, the standard posterolateral portal was made sharply with 11-blade. Scope was introduced initially i n the subacromial space. Due to habitus and size of the patient, it was difficult getting into the j oint initially. Once the supraspinatus was identified, lateral portal was made in an outside-in fashi on. The shaver was then placed to debride back the abundant thick bursa that was present. Once that was completed, the undersurface of the acromion was skeletonized using electrocautery device. The C A ligament was released. The 4-0 oval donald was then used to do an acromioplasty. The rest of the larry bacromial site looked okay without any tearing that was obvious, but attention needed to be directed to the joint. The scope was then carefully placed into the joint and the joint was examined. There was grade 3 ledezma ge to the humeral head. There was abundant synovitis. There was evidence of a previous biceps ruptu re. The subscap was intact. The undersurface of the supraspinatus had a high-grade partial-thicknes s tear with unstable flaps. There were loose debris that was lavaged. An anterior portal was made a nd the shaver was placed, but we could only do a limited debridement due to the patient's size and po rtal placement. Once that was completed, attention was directed back to the subacromial space. Because the patient had a partial-thickness tear of the rotator cuff that was high grade and she is y oung, we decided to use the Regeneten patch. The sized Regeneten patch was then brought to the field and placed under arthroscopic visualization through a separate cannula and taryn were passed to se cure this to the tendon. Laterally, bone taryn were placed. Final images were obtained. The wound s were then copiously irrigated with sterile saline. Sterile dressings were applied. Cryo/Cuff and a regular sling were applied. She was awoken from anesthesia and transferred to the PACU in stable co ndition. POSTOPERATIVE PLAN: In the PACU, we planned for same-day surgery, but in PACU, she was unable to put on her CPAP. She has no one that is able to care for her at home. Because of the block, she cannot use her arm and cannot put her CPAP on one- handed. It was decided based on her medical problems th at it is safer to admit her at least until she can work with therapy, but she is allowed range of mot ion with the shoulder beginning with passive, progress to active. No resistant strength for about 4 weeks. She will be discharged on pain medications and antibiotics. DVT prophylaxis was considered, but deferred due to no previous personal or family history. I will see the patient back in 10 to 14 days. [id number]/[facility] #: [id number]
[2019-04-20] MEDS ORDERED: Insulin GLARGINE(*) 1 UNITS UNIT SUBCUT SCH (12:00)
[2019-04-20] MEDS ORDERED: Enoxaparin(*) 40 MG/0.4 ML SYR SUBCUT SCH (12:00)
--- NOTE | 2019-04-20 12:28 | PN ---
Progress Note - Progress Note Date of Service: 04/20/19 SOAP: Subjective: [] Objective: [] Assessment: []Right shoulder partial-thickness tear with a ruptured biceps. OPERATIVE PROCEDURES: 1. Right shoulder arthroscopy with limited debridement. 2. Subacromial decompression with acromioplasty. 3. Rotator cuff repair with Regeneten patch. Plan: []WBAT, ROM as tolerated RUE
--- NOTE | 2019-04-20 12:35 | PN ---
Progress Note - Progress Note Date of Service: 04/20/19 SOAP: Subjective: []Pt seen at bedside. She is feeling well this morning. RUE pain is well controlled. Denies dizziness, nausea. She feels she gets out of breath more easily than usual with exertion. Also reports her throat vs upper chest is uncomfortable but not painful. Objective: []Gen: NAD, appears comfortable in bed RUE: Right shoulder dressing CDI, no surrounding erythema. F/E elbow, wrist and digits intact. Okay, thumbs up, finger cross intact. Sensation intact to light touch throughout RUE. Cap refill less than two seconds distally, radial pulse 2+ . Assessment: [] POST-OP DIAGNOSIS: Right shoulder partial-thickness tear with a ruptured biceps. OPERATIVE PROCEDURES: 1. Right shoulder arthroscopy with limited debridement. 2. Subacromial decompression with acromioplasty. 3. Rotator cuff repair with Regeneten patch. Plan: []WBAT ROM as tolerated Discussed exertional SOB, possible chest pain with medicine Patient concerned she will not be able to complete ADLs and asks for rehab placement. OT will work with her today to further clarify her needs Vital Signs Temp 98.7 F 04/20/19 11:10 Pulse 78 04/20/19 11:10 Resp 18 04/20/19 11:10 BP 117/66 04/20/19 11:10 Pulse Ox 98 04/20/19 11:10 Intake & Output 04/19/19 04/20/19 04/20/19 18:59 06:59 18:59 Intake Total 1850 1594 393 Output Total 2550 400 Balance 1850 -956 -7 Weight 345 lb Intake: IV Fluids 1850 501 35 LR 1700 501 35 NS 100ML, Cefazolin 2G 150 IVPB 53 58 ABX - CEFAZOLIN 53 58 Oral 1040 300 Output: Urine 2550 400 Laboratory Last Values Hgb 12.3 g/dL (12.0-16.0) 04/20/19 04:37 Hct 37 % (35-47) 04/20/19 04:37 Plt Count 373 10^3/uL (150-450) 04/20/19 04:37 MPV 6.4 fL (7.4-10.4) L 04/20/19 04:37 Sodium 133 mmol/L (135-145) L 04/20/19 04:37 Potassium 4.1 mmol/L (3.5-5.0) 04/20/19 04:37 Chloride 103 mmol/L (101-111) 04/20/19 04:37 Carbon Dioxide 21 mmol/L (22-32) L 04/20/19 04:37 Anion Gap 9 mmol/L (2-11) 04/20/19 04:37 BUN 10 mg/dL (6-24) 04/20/19 04:37 Creatinine 0.56 mg/dL (0.51-0.95) 04/20/19 04:37 Est GFR ( Amer) 148.2 (>60) 04/20/19 04:37 Est GFR (Non-Af Amer) 122.5 (>60) 04/20/19 04:37 BUN/Creatinine Ratio 17.9 (8-20) 04/20/19 04:37 Glucose 259 mg/dL (70-100) H 04/20/19 04:37 POC Glucose (mg/dL) 297 mg/dL (70-100) H 04/19/19 22:28 Calcium 8.6 mg/dL (8.6-10.3) 04/20/19 04:37
--- NOTE | 2019-04-20 13:22 | PN ---
Subjective Date of Service: 04/20/19 Interval History: She was seen on Short stay this morning. She was still having difficulty using her arm to place her CPAP mask. Now she is having difficulty doing her ADL. Discussed with porter sample case and awaiting assessment if she is safe to go home versus rehab Past Medical History: Unchanged from Admission Objective Active Medications: Acetaminophen (Tylenol Tab*) 975 mg PO Q8H [facility] Last Admin: 04/20/19 09:26 Dose: 975 mg Acetaminophen/Codeine Phosphate (Tylenol/Codeine 30 Mg Tab*) 1 tab PO BID PRN PRN Reason: PAIN - SEVERE Albuterol (Ventolin Hfa Inhaler*) 2 puff INH Q6H PRN PRN Reason: WHEEZING Artificial Tears (Natural Balance Tears Eye Drop) 1 drop BOTH EYES BID PRN PRN Reason: DRY EYE Atorvastatin Calcium (Lipitor*) 80 mg PO BEDTIME [facility] Last Admin: 04/19/19 22:49 Dose: 80 mg Calcium Carbonate (Tums*) 500 mg PO TID PRN PRN Reason: INDIGESTION Cetirizine HCl (Zyrtec*) 10 mg PO QAM [facility] Last Admin: 04/20/19 09:27 Dose: 10 mg Ciprofloxacin HCl (Cipro 0.3% Opth*) 2 drop RIGHT EYE [id number] AWAKE [facility] Stop: 04/26/19 17:59 Last Admin: 04/20/19 09:33 Dose: 2 drop Cyclobenzaprine HCl (Flexeril Tab*) 5 mg PO TID PRN PRN Reason: SPASMS Dicyclomine HCl (Bentyl Cap*) 10 mg PO BID [facility] Last Admin: 04/20/19 09:28 Dose: 10 mg Diphenhydramine HCl (Benadryl Po*) 25 mg PO Q6H PRN PRN Reason: itching Docusate Sodium (Colace Cap*) 100 mg PO BID PRN PRN Reason: CONSTIPATION Duloxetine HCl (Cymbalta Cap*) 20 mg PO BEDTIME [facility] Last Admin: 04/19/19 22:53 Dose: 20 mg Duloxetine HCl (Cymbalta Cap*) 60 mg PO QAM [facility] Last Admin: 04/20/19 09:28 Dose: 60 mg Enoxaparin Sodium (Lovenox(*)) 40 mg SUBCUT Q24H [facility] Epinephrine HCl (Adrenalin 1 Mg/Ml) 0.3 mg IM ONCE PRN PRN Reason: ANAPHYLAXIS Gabapentin (Neurontin Cap(*)) 1,200 mg PO BEDTIME [facility] Last Admin: 04/19/19 22:54 Dose: 1,200 mg Gabapentin (Neurontin Cap(*)) 600 mg PO QAM [facility] Last Admin: 04/20/19 09:27 Dose: 600 mg Cefazolin Sodium 1 gm/ Sodium (Chloride) 50 mls @ 200 mls/hr IVPB Q8H [facility] Stop: 04/20/19 13:14 Last Admin: 04/20/19 06:20 Dose: 200 mls/hr Insulin Glargine (Lantus(*)) 42 units SUBCUT Q24H [facility] Insulin Human Lispro (Humalog*) 0 units SUBCUT ACHS [facility]; Protocol Last Admin: 04/20/19 09:39 Dose: 9 units Loperamide HCl (Imodium Cap*) 2 mg PO BID PRN PRN Reason: DIARRHEA Lorazepam (Ativan Tab(*)) 1 mg PO BID PRN PRN Reason: ANXIETY Magnesium Hydroxide (Milk Of Magnesia Liq*) 30 ml PO BID [facility] Last Admin: 04/20/19 09:28 Dose: 30 ml Metoprolol Tartrate (Lopressor Tab*) 100 mg PO BID [facility] Last Admin: 04/20/19 09:27 Dose: 100 mg Mirtazapine (Remeron Tab*) 15 mg PO BEDTIME [facility] Last Admin: 04/19/19 22:57 Dose: 15 mg Mometasone Furoate/Formoterol Fumar (Dulera 200/5 Mdi*) 2 puff INH BID [facility] Last Admin: 04/20/19 09:33 Dose: Not Given Morphine Sulfate (Morphine Inj (Syringe))*) 2 mg IV Q2H PRN PRN Reason: breakthru pain Mycophenolate Mofetil (Cellcept Tab(*)) 1,000 mg PO BID [facility] Last Admin: 04/20/19 09:29 Dose: 1,000 mg Naproxen (Naprosyn Tab*) 500 mg PO BID PRN PRN Reason: .PAIN (Dapsone [Dapsone] (75 Mg)) 75 mg PO QAM [facility] Last Admin: 04/20/19 09:28 Dose: Not Given (Melatonin [ (Melatonin] 10 Mg)) 10 mg PO BEDTIME [facility] Last Admin: 04/19/19 22:56 Dose: Not Given [Butalbital- Acetaminophn 50-325] 1 Tab) 1 tab PO Q8H PRN PRN Reason: HEADACHE Ondansetron HCl (Zofran Inj*) 4 mg IV Q6H PRN PRN Reason: nausea Ondansetron HCl (Zofran Odt Tab*) 4 mg PO Q6H PRN PRN Reason: NAUSEA Oxycodone/Acetaminophen (Percocet 5/325 Tab*) 1 tab PO Q4H PRN PRN Reason: PAIN - MODERATE Last Admin: 04/20/19 09:31 Dose: 1 tab Pantoprazole Sodium (Protonix Tab*) 40 mg PO QAM [facility] Last Admin: 04/20/19 09:27 Dose: 40 mg Prazosin HCl (Minipress Cap*) 5 mg PO BEDTIME [facility] Last Admin: 04/19/19 22:59 Dose: 5 mg Prazosin HCl (Minipress Cap*) 3 mg PO BEDTIME [facility] Last Admin: 04/19/19 23:00 Dose: 3 mg Prazosin HCl (Minipress Cap*) 2 mg PO QAM [facility] Last Admin: 04/20/19 09:29 Dose: 2 mg Spironolactone (Aldactone Tab*) 50 mg PO QAM [facility] Last Admin: 04/20/19 09:26 Dose: 50 mg Sumatriptan Succinate (Imitrex Tab*) 100 mg PO DAILY PRN PRN Reason: MIGRAINE HEADACHE Topiramate (Topamax(*)) 100 mg PO BID [facility] Last Admin: 04/20/19 09:27 Dose: 100 mg Zolpidem Tartrate (Ambien Tab*) 10 mg PO BEDTIME PRN PRN Reason: SLEEP Vital Signs - 8 hr 04/20/19 04/20/19 04/20/19 06:35 07:07 08:26 Temperature 98.7 F Pulse Rate 80 Respiratory 20 18 18 Rate Blood Pressure 120/80 (mmHg) O2 Sat by Pulse 94 Oximetry 04/20/19 04/20/19 04/20/19 09:27 09:28 09:31 Temperature Pulse Rate Respiratory 18 18 18 Rate Blood Pressure (mmHg) O2 Sat by Pulse Oximetry 04/20/19 04/20/19 11:10 11:30 Temperature 98.7 F Pulse Rate 78 Respiratory 18 18 Rate Blood Pressure 117/66 (mmHg) O2 Sat by Pulse 98 Oximetry Oxygen Devices in Use Now: None Appearance: awake, alert. no distress. She is still having her left shoulder in a immobilizer Eyes: No Scleral Icterus Ears/Nose/Mouth/Throat: NL Teeth, Lips, Gums, Mucous Membranes Moist Neck: NL Appearance and Movements; NL JVP, Trachea Midline Respiratory: Symmetrical Chest Expansion and Respiratory Effort, Clear to Auscultation Cardiovascular: NL Sounds; No Murmurs; No JVD, No Edema Abdominal: NL Sounds; No Tenderness; No Distention Extremities: No Edema Skin: No Rash or Ulcers Neurological: Alert and Oriented x 3 Result Diagrams: 04/20/19 04:37 04/20/19 04:37 Assess/Plan/Problems-Billing Assessment: 38 y/o female, admitted for right shoulder surgery, post operatively it was noted that the patient can not return home to care for self as she lives alone and unable to care for herself post-operatively (ADL... Going to the bathroom and clean herself..., applying her CPAP mask) hence medicine service was consulted to admit the patient pending safe disposition - Patient Problems (1) S/P rotator cuff surgery Current Visit: Yes Status: Acute Code(s): Z98.890 - OTHER SPECIFIED POSTPROCEDURAL STATES SNOMED Code(s): 783199420 Comment: - Follow up ortho recommendations regard activity, pain control - Lovenox 40 mg SQ for DVT prophylaxis (2) Apnea Current Visit: Yes Status: Acute Code(s): R06.81 - APNEA, NOT ELSEWHERE CLASSIFIED SNOMED Code(s): 1438843 Comment: - Will need to be able to apply her CPAP as she lives alone (3) Hyperlipidemia Current Visit: Yes Status: Acute Code(s): E78.5 - HYPERLIPIDEMIA, UNSPECIFIED SNOMED Code(s): 54931947 Comment: - Continue statins lipitor 80 mg HS (4) Asthma Current Visit: Yes Status: Acute Code(s): J45.909 - UNSPECIFIED ASTHMA, UNCOMPLICATED SNOMED Code(s): 226368169 Comment: - Continue Albuterol inhaler prn, Dulera (5) Migraine Current Visit: Yes Status: Acute Code(s): G43.909 - MIGRAINE, UNSP, NOT INTRACTABLE, WITHOUT STATUS MIGRAINOSUS SNOMED Code(s): 07856273 Comment: - Gabapentin, topamax, Fiorecet prn (6) Borderline personality disorder Current Visit: No Status: Acute Code(s): F60.3 - BORDERLINE PERSONALITY DISORDER SNOMED Code(s): 10387698 Comment: - Gabapentin, lorazepam, remeron, Prazosin for PTSD (7) PTSD (post-traumatic stress disorder) Current Visit: No Status: Acute Code(s): F43.10 - POST-TRAUMATIC STRESS DISORDER, UNSPECIFIED SNOMED Code(s): 67696907 Comment: - Gabapentin, lorazepam, remeron, Prazosin for PTSD (8) Anxiety and depression Current Visit: No Status: Chronic Code(s): F41.9 - ANXIETY DISORDER, UNSPECIFIED; F32.9 - MAJOR DEPRESSIVE DISORDER, SINGLE EPISODE, UNSPECIFIED SNOMED Code(s): 515511644 Comment: - Gabapentin, lorazepam, remeron, Prazosin for PTSD (9) HTN (hypertension) Current Visit: No Status: Chronic Code(s): I10 - ESSENTIAL (PRIMARY) HYPERTENSION SNOMED Code(s): 92750145 Comment: Continue metoprolol 100 mg bid, aldactone 50 mg daily (10) History of vasculitis Current Visit: No Status: Chronic Code(s): Z86.79 - PERSONAL HISTORY OF OTHER DISEASES OF THE CIRCULATORY SYSTEM SNOMED Code(s): 680917284 Comment: With skin involvement, follow up outpatient with Dr. Maradiaga Continue Cellcept (11) Type II diabetes mellitus Current Visit: No Status: Chronic Priority: High Comment: Lantus 42 units with SS keep her insulin pump on hold while inpatient (12) DVT prophylaxis Current Visit: No Status: Acute Code(s): IFZ8054 - SNOMED Code(s): 526774142 Comment: - Lovenox 40 SQ until she is fully ambulatory
[2019-04-20 15:12] VITALS: BP 114/65
--- NOTE | 2019-04-20 17:55 | DS ---
CC: Dr. Jak Booker; Dr. Kimberlyn Dhillon DISCHARGE SUMMARY: DATE OF ADMISSION: 04/19/19 DATE OF DISCHARGE: 04/20/19 FINAL DISCHARGE DIAGNOSIS: Right shoulder surgery, status post rotator cuff repair. ADDITIONAL DISCHARGE DIAGNOSES: 1. History of diabetes mellitus, on insulin pump. 2. Anxiety. 3. Depression. 4. Morbid obesity. 5. Sleep apnea. 6. Hypertension. 7. Vasculitis. 8. Irritable bowel syndrome. 9. Borderline personality disorder. 10. Asthma. 11. Arthritis. 12. Chronic anemia. 13. Chronic migraine. HOSPITAL COURSE: The patient presented to the outpatient surgical center for right rotator cuff repair, has tolerated the procedure well. During recovery room, it was noted that the patient has a CPAP and she cannot place on her CPAP mask, hence her discharge from the recovery room was canceled. Medicine service was called and consulted. She was admitted to medicine service overnight while obtaining occupational therapy and allow enough time healing, so the patient can utilize her CPAP and able to place her CPAP mask. This morning, the patient had difficulty also utilizing a bathroom. Occupational Therapy saw the patient and were able to accommodate her with the adaptor for the toilet and later this afternoon, I was notified by orthopedic service and the telephonic case manager that the patient is cleared for discharge home as she is self sufficient. She was reexamined this afternoon. She is slightly dissatisfied with the decision. She was hoping that she would obtain a 2 weeks referral for inpatient rehab, but given her functionality and freedom to move her shoulder and was able to place the CPAP here, she is deemed stable for discharge home. PHYSICAL EXAMINATION: Please refer to my exam earlier today. DISCHARGE MEDICATIONS: The patient to resume all her home medications as follows: 1. Resume albuterol inhaler 2 puffs every 6 hours. 2. Lipitor 80 mg at bedtime. 3. Fioricet 50/325 one tab every 8 hours p.r.n. for headache. 4. Calcium 500 mg p.o. t.i.d. with calcium carbonate known as Tums. 5. Ciprofloxacin eye drop 2 drops to the right eye q.4 hours until she complete her prescription from her outpatient to resume it. 6. Dapsone 75 mg daily. 7. Bentyl 10 mg b.i.d. p.r.n. 8. Colace 100 mg b.i.d. 9. Cymbalta 60 mg in the morning. 10. Cymbalta 20 mg at bedtime. 11. EpiPen. 12. Breo 200/25 one inhaler q.a.m. 13. Gabapentin 1200 mg at bedtime. 14. Gabapentin 600 mg in the morning. 15. Insulin pump using Admelog. 16. Imodium 2 mg b.i.d. p.r.n. 17. Loratadine 10 mg q.a.m. 18. Lorazepam 1 mg p.o. b.i.d. 19. Melatonin 10 mg at bedtime. 20. Metoprolol 100 mg b.i.d. 21. Remeron 15 mg at bedtime. 22. CellCept 2 tablets p.o. b.i.d., each tablet is 500 mg, hence 1000 mg b.i.d. 23. Naproxen 500 mg b.i.d. p.r.n. 24. Pantoprazole 40 mg daily. 25. Prazosin 8 mg at bedtime, 2 mg in the morning. 26. Systane 1 drop both eyes b.i.d. 27. Aldactone 25 mg, take 2 tabs in the morning for a total of 50 mg. 28. Imitrex 100 mg daily as needed. 29. Topamax 100 mg b.i.d. 30. Ambien 10 mg at bedtime. 31. Tylenol with Codeine 1 tab every 6 hours as needed. 32. Zyrtec 10 mg daily. 33. Benadryl 50 mg p.r.n. 34. Erenumab 70 mg subcutaneous once in a month. 35. Nexplanon 68 mg implant. 36. Medical marijuana. 37. Percocet for pain as prescribed by Orthopedics 1 to 2 tabs q.6 hours as needed for pain 38. Keflex 500 mg every 6 hours for 3 days. DISCHARGE INSTRUCTIONS: 1. Follow up with Dr. Jak Booker in 1 to 2 weeks. 2. Follow up with her primary Dr. Kimberlyn Dhillon in 1 to 2 weeks. Visiting nurse service offered. The patient to take all medications as prescribed. DISCHARGE CONDITION: STABLE DISCHARGE DISPOSITION: HOME [id number]/[facility] #: [id number] [facility]
== END 2019-04-20 17:45 | disposition home or self-care (01) ==
LOC: OR 09:51 → INTOOBSV 17:25 → SSU 17:25
PROVIDERS: ADMIT Orthopaedic Surgery; ATTEND Internal Medicine
DX: M25.511 Pain in right shoulder (principal); M25.811 Other specified joint disorders, right shoulder; M75.41 Impingement syndrome of right shoulder; E10.9 Type 1 diabetes mellitus without complications; F41.9 Anxiety disorder, unspecified; F32.9 Major depressive disorder, single episode, unspecified; E66.01 Morbid (severe) obesity due to excess calories; G47.30 Sleep apnea, unspecified; R06.4 Hyperventilation; I10 Essential (primary) hypertension; I77.6 Arteritis, unspecified; K58.9 Irritable bowel syndrome, unspecified; E78.5 Hyperlipidemia, unspecified; F60.3 Borderline personality disorder; J45.909 Unspecified asthma, uncomplicated; M19.90 Unspecified osteoarthritis, unspecified site; D64.9 Anemia, unspecified; Z91.030 Bee allergy status; Z79.899 Other long term (current) drug therapy; Z87.891 Personal history of nicotine dependence; K21.9 Gastro-esophageal reflux disease without esophagitis; F43.10 Post-traumatic stress disorder, unspecified
CPT/HCPCS: 36415; 80048; 81025; 85014; 85018; 85049; 96372; 96374; 96376; A9270-GY; C1713; G0378; G8978-GP-CI; G8979-GP-CI; G8980-GP-CI; G8987-GO-CJ; G8987-GO-CK; G8988-GO-CI; J0330; J0690; J1100; J1240; J1650; J1885; J2250; J2405; J2704; J2795; J3010; J3490

== ENCOUNTER 2019-05-09 08:55 | Emergency (ER) | payer OTHER ==
--- NOTE | 2019-05-09 09:40 | ED ---
Upper Extremity Pain - HPI Summary HPI Summary: 38 year old female presents with right shoulder injury today. States she rolled out of bed. She states she landed on her right shoulder where she previously had rotator cuff surgery a month ago by Dr. Booker. She has been following up and has had no complications with shoulder so far. She denies any numbness or tingling. She states she also landed on her right cheek and her nose. She has a small laceration to the bridge of her nose. It is not actively bleeding. No loss consciousness. Has a mild headache. Is not on blood thinners. No dizziness. No visual changes or photophobia. Denies any neck pain. No chest pain or shortness breath. Fall was a mechanical fall. No other injury. tetanus is up to date. - History of Current Complaint Chief Complaint: EDExtremityUpper Stated Complaint: PT STATES SHE FELL OUT OF BED Time Seen by Provider: 05/09/19 09:00 Hx Last Menstrual Period: 3 weeks ago - Allergies/Home Medications Allergies/Adverse Reactions: Allergies Allergy/AdvReac Type Severity Reaction Status Date / Time Adhesive Tape Allergy Severe Rash Verified 05/09/19 09:07 asenapine Allergy Severe Rash Verified 05/09/19 09:07 bee venom protein (honey bee) Allergy Severe Anaphylatic Verified 05/09/19 09:07 Shock lurasidone [From Latuda] Allergy Severe Vomiting Verified 05/09/19 09:07 metoclopramide [From Reglan] Allergy Severe Abdominal Verified 05/09/19 09:07 Pain paclitaxel [From Taxol] Allergy Severe Rash Verified 05/09/19 09:07 Sulfa (Sulfonamide Allergy Severe Rash Verified 05/09/19 09:07 Antibiotics) sulfamethoxazole Allergy Severe Rash Verified 05/09/19 09:07 [From Bactrim] trimethoprim [From Bactrim] Allergy Severe Hives Verified 05/09/19 09:07 nalbuphine [From Nubain] AdvReac Severe Rash Verified 05/09/19 09:07 paroxetine [From Paxil] AdvReac Severe Vomiting Verified 05/09/19 09:07 tramadol AdvReac Severe Rash Verified 05/09/19 09:07 "metal" Allergy Severe Swelling Uncoded 05/09/19 09:07 zepeda Allergy Severe Nausea And Uncoded 05/09/19 09:07 Vomiting Home Medications: Home Medications Diclofenac Potassium 50 mg PO TID PRN 05/09/19 [History Confirmed 05/09/19] Glucagon,Human Recombinant [Glucagon Emergency Kit] 1 mg IM ONCE 05/09/19 [ History Confirmed 05/09/19] Propylene Glycol/Peg 400/Pf [Systane 0.3-0.4% Eye Drops] 1 drop BOTH EYES BID PRN 05/09/19 [History Confirmed 05/09/19] oxyCODONE/Acetamin 5/325 MG* [Percocet 5/325 TAB*] 1 tab PO .4-6H PRN 05/09/19 [ History Confirmed 05/09/19] PMH/Surg Hx/FS Hx/Imm Hx Endocrine/Hematology History: Reports: Hx Diabetes, Hx Anemia Denies: Hx Thyroid Disease, Other Endocrine/Hematological Disorders Cardiovascular History: Reports: Hx Angina, Hx Hypercholesterolemia, Hx Hypertension, Other Cardiovascular Problems/Disorders - vasculitis. tachycardia Denies: Hx Coronary Artery Disease, Hx Myocardial Infarction, Hx Pacemaker/ ICD, Hx Peripheral Vascular Disease, Hx Valvular Heart Disease Respiratory History: Reports: Hx Asthma, Hx Sleep Apnea Denies: Hx Chronic Obstructive Pulmonary Disease (COPD), Other Respiratory Problems/Disorders GI History: Reports: Hx Crohn's Disease, Hx Gastroesophageal Reflux Disease, Hx Irritable Bowel, Other GI Disorders - gastroparesis Denies: Hx Ulcer History: Denies: Hx Dialysis, Hx Renal Disease, Other Problems/Disorders Musculoskeletal History: Reports: Hx Arthritis - back and knees, Other Musculoskeletal History - Ulnar nerve compression Right arm Denies: Hx Osteoporosis Sensory History: Reports: Hx Contacts or Glasses Denies: Hx Legally Blind, Hx Deafness, Hx Hearing Aid Opthamlomology History: Reports: Hx Contacts or Glasses Denies: Hx Legally Blind Neurological History: Reports: Hx Headaches, Hx Migraine, Hx Nerve Disease - diabetic neuropathy Denies: Hx Seizures, Hx Transient Ischemic Attacks (TIA), Other Neuro Impairments/Disorders Psychiatric History: Reports: Hx Anxiety, Hx Depression, Hx Panic Disorder - PTSD, Hx Post Traumatic Stress Disorder, Hx Inpatient Treatment, Hx Community Mental Health Tx, Hx Bipolar Disorder, Hx Suicide Attempt, Other Psychiatric Issues/Disorders - Borderline Personality Disorder Denies: Hx Attention Deficit Hyperactivity Disorder, Hx Eating Disorder, Hx Schizophrenia, Hx of Violent Episodes Against Others - Cancer History Hx Chemotherapy: No - Surgical History Surgery Procedure, Year, and Place: [place] Cardiac Catherterization-NO STENT [place] in [place] 2005, 2017 [facility] [place],. ulnar nerve release 2018, [facility] [place] Hx Anesthesia Reactions: No - Immunization History Date of Tetanus Vaccine: utd Date of Influenza Vaccine: fall 2016 Immunizations Up to Date: Yes Infectious Disease History: No Infectious Disease History: Reports: Hx of Known/Suspected MRSA Denies: Hx Hepatitis, Hx Human Immunodeficiency Virus (HIV), Traveled Outside the [place] in Last 30 Days - Family History Known Family History: Positive: Cardiac Disease, Diabetes, Other - blod clots Negative: Hypertension - Social History Alcohol Use: None Alcohol Amount: none today Hx Substance Use: Yes Substance Use Type: Reports: Marijuana Substance Use Comment - Amount & Last Used: medical marijuana Hx Tobacco Use: Yes Smoking Status (MU): Never Smoked Tobacco Type: Cigarettes Amount Used/How Often: 2 cigarettes/day Length of Time of Smoking/Using Tobacco: 4 CIG/DAY 2 YEARS Have You Smoked in the Last Year: Yes Review of Systems Negative: Fever Negative: Chest Pain Negative: Shortness Of Breath Positive: Myalgia - shoulder right Positive: Other - laceration All Other Systems Reviewed And Are Negative: Yes Physical Exam Triage Information Reviewed: Yes Vital Signs On Initial Exam: Initial Vitals Temp Pulse Resp BP Pulse Ox 97.8 F 101 18 142/94 96 05/09/19 08:57 05/09/19 08:57 05/09/19 08:57 05/09/19 08:57 05/09/19 08:57 Vital Signs Reviewed: Yes Appearance: Positive: Well-Appearing Skin: Positive: Warm, Dry Head/Face: Positive: Normal Head/Face Inspection Eyes: Positive: Normal, Conjunctiva Clear ENT: Positive: Pharynx normal Respiratory/Lung Sounds: Positive: Clear to Auscultation, Breath Sounds Present Cardiovascular: Positive: Normal, RRR Musculoskeletal: Positive: Limited @ - right shoulder, Other - tenderness right shoulder, good pulses, 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 - Radiology shoulder Radiology Interpretation Completed By: Radiologist Summary of Radiographic Findings: IMPRESSION: NO ACUTE OSSEOUS INJURY. IF SYMPTOMS PERSIST, RECOMMEND REPEAT IMAGING. Course/Dx - Course Course Of Treatment: 38 year old female presents with right shoulder injury today. States she rolled out of bed. She states she landed on her right shoulder where she previously had rotator cuff surgery a month ago by Dr. Booker. She has been following up and has had no complications with shoulder so far. She denies any numbness or tingling. She states she also landed on her right cheek and her nose. She has a small laceration to the bridge of her nose. It is not actively bleeding. No loss consciousness. Has a mild headache. Is not on blood thinners. No dizziness. No visual changes or photophobia. Denies any neck pain. No chest pain or shortness breath. Fall was a mechanical fall. No other injury. On exam has normal neuro exam. Has a 1cm superficial laceration to the bridge of her nose. Nares is midline. No step-off noted. Tenderness over right shoulder. Has healing lacerations to the right shoulder. Neurovascularly intact. xray no acute findings. told to keep in splint. told follow up with ortho. patient understand and agrees with plan. - Diagnoses Differential Diagnosis/HQI/PQRI: Positive: Fracture (Closed), Strain, Sprain Provider Diagnoses: Right shoulder pain Discharge ED - Sign-Out/Discharge Documenting (check all that apply): Patient Departure Patient Received Moderate/Deep Sedation with Procedure: No - Discharge Plan Condition: Good Disposition: HOME Patient Education Materials: Shoulder Pain (ED) Referrals: Kimberlyn Dhillon MD [Primary Care Provider] - Jak Booker MD [Medical Doctor] - Additional Instructions: ice, keep in sling take tyenlol or ibuprofen for pain every 6 hours Follow up with ortho Return to ED if develop any new or worsening symptoms - Billing Disposition and Condition Condition: GOOD Disposition: Home - Attestation Statements Provider Attestation: I was available for consult. This patient was seen by the DEWAYNE. The patient was not presented to, seen by, or examined by me. Neil White MD
[2019-05-09 11:09] VITALS: BP 150/84
== END 2019-05-09 10:45 | disposition home or self-care (01) ==
LOC: ED 08:55
DX: M25.511 Pain in right shoulder (principal); S01.81XA Laceration without foreign body of other part of head, initial encounter; W06.XXXA Fall from bed, initial encounter; Y92.003 Bedroom of unspecified non-institutional (private) residence as the place of occurrence of the external cause
CPT/HCPCS: 12011; 99282

== ENCOUNTER 2019-05-23 06:43 | Emergency (ER) | payer OTHER ==
--- OUTSIDE RECORDS SUMMARY | 2019-05-23 07:09 | XMS REPORT | Continuity of Care Document ---
:1980 External Reference #:[id number] Author Name Jak Booker MD (transmitted by agent of provider Kiki Nguyen) Address [address], [place] [address] Care Team Providers Name Role Phone Mike Maradiaga MD - Rheumatology Care Team Information Classified Advertising Supervisor Patel Bhat MD - Gastroenterology Care Team Information Classified Advertising Supervisor [phone] Abad Dempsey MD - Dermatology Care Team Information Classified Advertising Supervisor [facility] - Gynecology Care Team Information Classified Advertising Supervisor [phone] Vinnie Gunderson MD - Obstetrics & Care Team Information Classified Advertising Supervisor Gynecology Kimberlyn Dhillon MD - Internal Care Team Information Classified Advertising Supervisor Medicine Leatha Vanegas M.D. - Hematology & Care Team Information Classified Advertising Supervisor [phone] Oncology Anel Andersen DPM - Field Artillery Officer Care Team Information Classified Advertising Supervisor [phone] [facility] - Care Team Information Classified Advertising Supervisor R D Intern Felix Jay MD - Field Artillery Officer Care Team Information Classified Advertising Supervisor Problems Active Problems Provider Date Multiple complications of type 1 diabetes Kiran Hebert M.D. Onset: 12/02 mellitus Mild recurrent major depression Kiran Hebert M.D. Onset: 12/02/2016 Posttraumatic stress disorder Kiran Hebert M.D. Onset: 12/02/2016 Asthma without status asthmaticus Kiran Hebert M.D. Onset: 12/02/2016 Migraine without aura, not refractory Kiran Hebert M.D. Onset: 2016 Gastroesophageal reflux disease Kiran Hebert M.D. Onset: 12/02/2016 Vascular disease of the skin Kiran Hebert M.D. Onset: 12/02/2016 Note: cutaneous vasculitis Gastroparesis syndrome Kiran Hebert M.D. Onset: 12/02/2016 Thoracic and lumbosacral neuritis Kiran Hebert M.D. Onset: 12/02/2016 Rosacea Kiran Hebert M.D. Onset: 12/02/2016 Polycystic ovaries Kiran Hebert M.D. Onset: 12/02/2016 Irritable bowel syndrome Kimberlyn Dhillon M.D. Onset: 12/16/2016 Morbid obesity Kimberlyn Dhillon M.D. Onset: 12/16/2016 Borderline personality disorder Kimberlyn Dhillon M.D. Onset: 12/16/2016 Disorder of shoulder Jak Booker MD Onset: 05/07/2017 Lesion of ulnar nerve Jak Booker MD Onset: 05/07/2017 Note: right - surgery Dr. Aguilera Cervicovaginal cytology: Low grade squamous Kimberlyn Dhiloln M.D. Onset: 02/16 intraepithelial lesion Note: HPV neg Dr. gunderson Localized superficial swelling of skin Jak Booker MD Onset: 04/21/2018 Type 1 diabetes mellitus uncontrolled Mejia Valdivia MD Onset: 03/27/2019 Mixed hyperlipidemia Mejia Valdivia MD Onset: 03/27/2019 Atherosclerotic heart disease of ramona coronary Mejia Valdivia MD Onset: 2018 artery without angina pectoris Shoulder joint pain Jak Booker MD Onset: 05/02/2019 Strain of rotator cuff capsule Jak Booker MD Onset: 05/02/2019 Social History Type Date Description Comments Sex Unknown Tobacco Use Start: Unknown Former Cigarette Smoker End: Unknown Smoking Status Reviewed: 05/09/19 Former Cigarette Smoker ETOH Use Denies alcohol use Tobacco Use Start: Unknown Patient is a former End: Unknown smoker Recreational Drug Use Current Drug User smokes marijuana daily Exercise Type/Frequency Exercises sporadically Allergies, Adverse Reactions, Alerts Active Allergies Reaction Severity Comments Date Asenapine Rash 06/12/2016 Bee Sting Severe anaphylactic shock 06/12/2016 Paxil Nausea 06/12/2016 Sulfa Antibiotics Causes Flare-up 06/12/2016 Tramadol rash 06/12/2016 Vasquez GI upset 06/12/2016 Latuda Rash 12/02/2016 Adhesive Tape Rash 12/02/2016 Reglan severe abdominal pain 12/02/2016 Saphris Rash 12/02/2016 Nalbuphine Rash 01/15/2017 Nickel inflammation 11/10/2017 Medications Active Medications SIG Qnty Indications Ordering Date Provider Oxycodone-Acetaminoph 1 tabs by mouth 18tabs Jak Booker, 04/19/2019 en every 4-6 hours as 5-325mg Tablets needed for pain Cephalexin take 1 by mouth 12tabs Jak Booker, 04/19/2019 500mg four times a day x MD Tablets 3 days post op Unifine Pentips to use with Lantus 100units Spencer Fabian MD 04/11/2019 31G X 6 once daily if mm Misc needed for pump failure. Nystatin 4 milliliters four 120ml Mike Ashwini, 03/01/2019 205117Kkgh/ML times a day, swish M.D. Suspension and swallow for 10 days Medical Compression as needed Dx 1units I83.93 Kimberlyn Dhillon, 02/21/2019 Stockings/Female/15-2 i83.93 M.D. 0MMHG/Knee/MD/Long Misc Basaglar Emiikpen 36 units once 15ml Spencer Fabian MD 01/05/2019 daily in case of 100Unit/ML Solution pump failure. Pen-Inject Distilled Water Please provide Jenny 01/03/2019 Liquid with distilled GEM Winston water for use in cpap machine Freestyle Precision test sugar as 75units Spencer Fabian MD 12/08/2018 Meir Blood Glucose needed daily for Test Strips symptoms of Strips hypoglycemia Aimovig inject once a 1ml G43.719 Jillian Rosa, 11/11/2018 70mg/ml month, sq M.D. Solution Auto-Inject Contour Next Blood use to test blood 75units Spencer Fabian MD 11/07/2018 Glucose Test sugar twice daily. Strips Freestyle Caridad [address] one sensor 6units E11.42 Spencer Fabian MD 2018 Day/Sensor/Flash every 10-14 days Monitoring System Misc Freestyle Caridad 14 use at least 4 1units E11.42 Spencer Fabian MD 10/11/2018 Day/[place]/Flash times daily with Monitoring System sensor Device Metoprolol Tartrate 1 tablet twice 60tabs Spencer Fabian MD 10/11/2018 daily 100mg Tablets Admelog in pump, max 180 30ml Spencer Fabian MD 10/11/2018 100Unit/ML units/day Solution Minimed Pump replace every 10units Spencer Fabian MD 07/08/2018 [place] 3ML other day. dx Res 3ML e10.9 Misc Infusion Set 23" 9mm change infusion 10units Spencer Fabian MD 07/07/2018 Tubing set as directed. 23" Misc Colace 1 tab by mouth 2-3 90caps K59.00 Kimberlyn Dhillon, 05/12/2018 100mg Capsules times a day as M.D. needed Sumatriptan Succinate 1 tab by mouth as 12tabs G43.709 Jillian Rosa, 01/2018 needed for M.D. 100mg Tablets migraine, may repeat after 2 hours; max 2 days a week, maximum 2 tablets in 24 hours. Topiramate in two weeks: 1 by 60tabs G43.709 Jillian Rosa, 02/25/2018 100mg mouth twice a day M.D. Tablets Dapsone take 3 tabs by 180tabs L95.9 Mike Maradiaga, 09/07/2017 25mg Tablets mouth every day M.D. Nexplanon Implant Dr Gunderson Unknown 07/01/2017 68mg Implant Loratadine 1 by mouth every 90tabs J30.9 Kimberlyn Dhillon, 06/14/2017 10mg Tablets day M.D. Spironolactone 1 by mouth every 90tabs L68.0 Kimberlyn Dhillon, 04/27/2017 50mg day M.D. Tablets Atorvastatin Calcium Take One Tablet By 90tabs E78.2 Kimberlyn Dhillon, 12/29 Mouth Every M.D. 80mg Tablets Evening Bentyl 1 by mouth twice a 60caps K31.84 Kimberlyn Dhillon, 12/02/2016 10mg Capsules day M.D. Cellcept 2 tabs by mouth 180tabs L95.8 Mike Maradiaga, 12/02/2016 500mg Tablets twice a day M.D. Imodium A-D 1 by mouth twice a 60caps K31.84 12/02/2016 2mg day prn Cotton, M.D. Capsules Duloxetine HCL 1 by mouth every Unknown 20mg day Caps DR Coughlin Systane apply twice daily Unknown 0.4-0.3% as needed for dry Solution eyes Duloxetine HCL 1 by mouth every Unknown 60mg day Caps DR Coughlin Mirtazapine 1 tab by mouth at Unknown 15mg bedtime Tablets Dispers Pantoprazole Sodium Take One Tablet By 30tabs Kimberlyn Dhillon, Mouth Once Daily M.D. 40mg Tablets DR Gabapentin take 1 by mouth in Unknown 600mg the am, and 2 Tablets tablets in the evening Medical Marijuana Dr. De La Cruz Unknown Diclofenac Potassium tid prn Unknown 50mg Tablets Butalbital-Acetaminop 1 tab by mouth 30tabs Kimberlyn Dhillon, hen every 8 hours as M.D. 50-325mg Tablets needed for severe headahces, no not take on days when using mapap Acetaminophen-Codeine 1 tab by mouth Unknown #3 every 4-6 hours as 300-30mg Tablets needed for pain Artificial Tears drops to eyes prn Unknown Solution Cetirizine HCL 1 by mouth every Unknown 10mg day prn Tablets Breo Ellipta one inhalation Unknown daily 200-25mcg/Inh Aerosol Glucagon Emergency as needed Unknown 1mg Kit Zolpidem Tartrate 1 tab by mouth Unknown 10mg every night at Tablets bedtime Melatonin 1 tab by mouth Unknown 10mg Capsules daily and as needed Prazosin HCL 4 capsules at Unknown 2mg bedtime Capsules Lorazepam one by mouth twice Unknown 1mg Tablets a day as needed for anxiety Diphenhydramine HCL 1-2 tabs every Unknown Maximum Strength 4-6hrs as needed 25mg Tablets Naproxen Sodium every 12 hrs prn Unknown 500mg pain clinic Capsules Ventolin HFA 2 puffs by mouth 18gm Kimberlyn Alejo, every 6 hours as M.D. 108(90Base) mcg/Act needed Aerosol Tums 1 by mouth 3 Unknown 500mg Chewtabs times a day as needed, may keep in her room Epipen 2-Amos use as directed 2units Deidra Godinez MD 0.3mg/0.3ML Solution Auto-Inject History Medications Pen [place] to be used once 100units E10.65 Spencer Fabian MD 04/07/2019 - 32G X per day with 04/10/2019 6 mm Misc Lantus in case of pump failure . BD Pen use 4 times daily 100units Spencer Fabian MD 04/05/2019 - Needle/Micro/Ultra with insulin 04/10/2019 -Fine/32G X 6mm injections, when pump fails 32G X 6 mm Misc Lantus Solostar inject 36 units 3ml E11.65 Spencer Fabian MD 01/02/2019 - once daily in 01/04/2019 100Unit/ML case of pump Solution failure. Pen-Inject Medications Administered in Office Medication SIG Qnty Indications Ordering Provider Date Triamcinolone (Kenalog) Jak Booker MD 02/10/2019 Injection Triamcinolone (Kenalog) Jak Booker MD 11/10/2018 Injection Triamcinolone (Kenalog) Jak Booker MD 04/21/2018 Injection Triamcinolone (Kenalog) Jak Booker MD 01/11/2018 Injection Triamcinolone (Kenalog) Jak Booker MD 10/14/2017 Injection Triamcinolone (Kenalog) Jak Booker MD 05/07/2017 Injection Immunizations CPT Code Status Date Vaccine Reaction Lot # [id number] Given 07/18/2018 Pneumococcal Conjugate no immediate reaction [id number] Vaccine 13 Valent For noted Intramuscular Use 63311 Given 05/12/2018 Influenza Virus Vaccine, No immediate reaction [id number] Quadrivalent, Split, noted. Preservative Free 36216 Given 06/14/2017 Tdap - [id number] Tetanus/Diptheria/Acellular Pertussis 84101 Given 06/01/2017 Influenza Virus Vaccine, no reaction noted [id number] Quadrivalent, Split, Preservative Free 37824 Given 04/02/2017 Pneumonia Vaccine Vital Signs Date Vital Result Comment 05/09/2019 4:00pm Height 67 inches 5'7" Weight 339.00 lb Heart Rate 104 /min BP Systolic 130 mmHg BP Diastolic 72 mmHg Body Temperature 98.2 F Pain Level 8 BMI (Body Mass Index) 53.1 kg/m2 05/02/2019 1:42pm Height 67 inches 5'7" Weight 339.00 lb Heart Rate 93 /min Body Temperature 98.9 F Pain Level 2 BMI (Body Mass Index) 53.1 kg/m2 Results Test Date Facility Test Result H/L Range Note Laboratory test 04/19/20 [facility] Point of Care 184 mg/dL High 70-100 1 finding [address] Glucose [place], [place] [id number] [phone] Laboratory test 04/19/20 [facility] Point of Care 138 mg/dL High 70-100 2 finding [address] Glucose [place], [place] [id number] [phone] Laboratory test 04/05/20 [facility] Hemoglobin A1c 5.8 % High 4.0-5.6 3 finding [address] (Glyco HGB) [place] [address] [phone] Laboratory test 03/27/20 [facility] Hepatitis B Jocelyne Not Immune Abnormal Immune finding [address] [place] [address] [phone] Urine 03/27/20 [facility] Ur Microalbumin < 15.0 Microalbumin [address] (mg/L) mg/[place] [address] [phone] Urine Creatinine 130.12 mg/dL Urine Microalbumin/Creatinine TNP <31 4 Lipid Profile 03/27/2019 [facility] Triglycerides 161 mg/dL 5 (Trig/Chol/HDL) [address] [place] [address] [phone] Cholesterol 203 mg/dL 6 HDL Cholesterol 39.8 mg/dL 7 LDL Cholesterol 131 mg/dL 8 Laboratory test 03/27/2019 [facility] Erythrocyte Sed 113 mm/Hr High 0-[address] [place] [address] [phone] Urinalysis 03/27/2019 [facility] Urine Color Yellow [place] [address] [place] [address] [phone] Urine Appearance Clear Urine Specific [place] 1.014 Normal 1.010-1.030 Urine pH 6.0 Normal 5-9 Urine Urobilinogen Negative Negative Urine Ketones Negative Negative Urine Protein Negative Negative Urine Leukocytes Negative Negative Urine Blood Negative Negative Urine Nitrite Negative Negative Urine Bilirubin Negative Negative Urine Glucose Negative Negative Laboratory 03/27/2019 [facility] C Reactive Protein 25.87 mg/L High <8.[address] [place] [address] [phone] CMV Igg/Igm 03/27/2019 [facility] Cytomegalovirus Negative Negative 9 101 [place] [address] [phone] Cytomegalovirus IgM Antibody Negative Negative Laboratory test 03/27/2019 [facility] LDH 149 U/L Normal 140- [address] [place] [address] [phone] CBC Auto Diff 03/27/2019 [facility] White Blood 22.8 High 3.5- 10.[address] Count 10^3/[place] [address] [phone] Red Blood Count 4.36 10^6/uL Normal 3.70-4.87 Hemoglobin 12.7 g/dL Normal 12.0-16.0 Hematocrit 40 % Normal 35-47 Mean Corpuscular Volume 91 fL Normal 80-97 Mean Corpuscular Hemoglobin 29 pg Normal 27-31 Mean Corpuscular HGB Conc 32 g/dL Normal 31-36 Red Cell Distribution Width 14 % Normal 10-15 Platelet Count 473 10^3/uL High 150-450 Mean Platelet Volume 6.3 fL Low 7.4-10.4 Abs Neutrophils 16.8 10^3/uL High 1.5-7.7 Abs Lymphocytes 4.4 10^3/uL Normal 1.0-4.8 Abs Monocytes 1.5 10^3/uL High 0-0.8 Abs Eosinophils 0.1 10^3/uL Normal 0-0.6 Abs Basophils 0.1 10^3/uL Normal 0-0.2 Abs Nucleated RBC 0.0 10^3/uL Granulocyte % 73.5 % Lymphocyte % 19.3 % Monocyte % 6.4 % Eosinophil % 0.4 % Basophil % 0.4 % Nucleated Red Blood Cells % 0.0 Comp Metabolic 03/27/2019 [facility] Sodium 137 mmol/L Normal 135-[address] [place] [address] [phone] Potassium 4.7 mmol/L Normal 3.5-5.0 Chloride 103 mmol/L Normal 101-111 Co2 Carbon Dioxide 24 mmol/L Normal 22-32 Anion Gap 10 mmol/L Normal 2-11 Glucose 138 mg/dL High 70-100 Blood Urea Nitrogen 10 mg/dL Normal 6-24 Creatinine 0.66 mg/dL Normal 0.51-0.95 BUN/Creatinine Ratio 15.2 Normal 8-20 Calcium 9.5 mg/dL Normal 8.6-10.3 Total Protein 7.7 g/dL Normal 6.4-8.9 Albumin 3.8 g/dL Normal 3.2-5.2 Globulin 3.9 g/dL Normal 2-4 Albumin/Globulin Ratio 1.0 Normal 1-3 Total Bilirubin 0.40 mg/dL Normal 0.2-1.0 Alkaline Phosphatase 129 U/L High 34-104 Alt 14 U/L Normal 7-52 Ast 12 U/L Low 13-39 Egfr Non- 101.3 >60 Egfr 122.6 >60 10 Laboratory test 01/27/2019 [facility] Blood SEE RESULT 11, [address] [place] [address] [phone] Venous Blood 01/27/2019 [facility] Venous Blood 7.41 Normal 7.[address] pH -7.4 [place] [address] 3 [phone] Venous Pco2 33 mmHg Low 41-51 Venous Po2 46.0 mmHg High 35-45 Venous O2 Saturation 80.6 % High 70-80 Venous Blood Base Excess -2.9 mmol/L Low 0.0-4.0 13 Venous Bicarbonate Hco3 22.2 mmol/L Low 24-28 Comp Metabolic Panel 01/27/2019 [facility] Sodium 134 mmol/L Low 135-[address] [place] [address] [phone] Potassium 4.1 mmol/L Normal 3.5-5.0 Chloride 102 mmol/L Normal 101-111 Glucose 235 mg/dL High 70-100 Blood Urea Nitrogen 12 mg/dL Normal 6-24 Calcium 10.3 mg/dL Normal 8.6-10.3 Total Protein 7.8 g/dL Normal 6.4-8.9 Albumin 4.1 g/dL Normal 3.2-5.2 Globulin 3.7 g/dL Normal 2-4 Albumin/Globulin Ratio 1.1 Normal 1-3 Total Bilirubin 0.70 mg/dL Normal 0.2-1.0 Alkaline Phosphatase 134 U/L High 34-104 Alt 12 U/L Normal 7-52 Ast 12 U/L Low 13-39 Creatinine 0.75 mg/dL Normal 0.51-0.95 BUN/Creatinine Ratio 16.0 Normal 8-20 Egfr Non- 87.4 >60 Egfr 105.8 >60 14 Co2 Carbon Dioxide 14 mmol/L Critical low 22-32 15 Anion Gap 18 mmol/L High 2-11 CBC Auto 01/27/2019 [facility] White Blood 19.4 10^3/uL High 3.5-10.[address] [place] [address] [phone] Red Blood Count 4.35 10^6/uL Normal 3.70-4.87 Hemoglobin 13.2 g/dL Normal 12.0-16.0 Hematocrit 39 % Normal 35-47 Mean Corpuscular Volume 90 fL Normal 80-97 Mean Corpuscular Hemoglobin 30 pg Normal 27-31 Mean Corpuscular HGB Conc 34 g/dL Normal 31-36 Red Cell Distribution Width 13 % Normal 10-15 Platelet Count 391 10^3/uL Normal 150-450 Mean Platelet Volume 6.9 fL Low 7.4-10.4 Abs Neutrophils 14.3 10^3/uL High 1.5-7.7 Abs Lymphocytes 3.7 10^3/uL Normal 1.0-4.8 Abs Monocytes 1.1 10^3/uL High 0-0.8 Abs Eosinophils 0.2 10^3/uL Normal 0-0.6 Abs Basophils 0.1 10^3/uL Normal 0-0.2 Abs Nucleated RBC 0.0 10^3/uL Granulocyte % 73.7 % Lymphocyte % 19.1 % Monocyte % 5.8 % Eosinophil % 0.9 % Basophil % 0.5 % Nucleated Red Blood Cells % 0.0 Basic Metabolic 01/27/2019 [facility] Sodium 133 mmol/L Low 135-[address] [place] [address] [phone] Potassium 3.6 mmol/L Normal 3.5-5.0 Chloride 104 mmol/L Normal 101-111 Co2 Carbon Dioxide 18 mmol/L Low 22-32 Anion Gap 11 mmol/L Normal 2-11 Glucose 147 mg/dL High 70-100 Blood Urea Nitrogen 12 mg/dL Normal 6-24 Creatinine 0.62 mg/dL Normal 0.51-0.95 BUN/Creatinine Ratio 19.4 Normal 8-20 Calcium 9.7 mg/dL Normal 8.6-10.3 Egfr Non- 108.9 >60 Egfr 131.8 >60 16 Laboratory test 01/27/2019 [facility] Troponin-I (TnI) 0.00 ng/ mL <0.04 [address] [place] [address] [phone] HCG < 0.60 mIU/mL 18 CBC Auto 01/27/2019 [facility] White Blood 21.1 10^3/uL High 3.5-10.[address] [place] [address] [phone] Red Blood Count 4.44 10^6/uL Normal 3.70-4.87 Hemoglobin 13.1 g/dL Normal 12.0-16.0 Hematocrit 40 % Normal 35-47 Mean Corpuscular Volume 89 fL Normal 80-97 Mean Corpuscular Hemoglobin 29 pg Normal 27-31 Mean Corpuscular HGB Conc 33 g/dL Normal 31-36 Red Cell Distribution Width 13 % Normal 10-15 Platelet Count 419 10^3/uL Normal 150-450 Mean Platelet Volume 6.6 fL Low 7.4-10.4 Abs Neutrophils 14.3 10^3/uL High 1.5-7.7 Abs Lymphocytes 4.8 10^3/uL Normal 1.0-4.8 Abs Monocytes 1.6 10^3/uL High 0-0.8 Abs Eosinophils 0.2 10^3/uL Normal 0-0.6 Abs Basophils 0.1 10^3/uL Normal 0-0.2 Abs Nucleated RBC 0.0 10^3/uL Granulocyte % 67.9 % Lymphocyte % 22.9 % Monocyte % 7.7 % Eosinophil % 1.1 % Basophil % 0.4 % Nucleated Red Blood Cells % 0.0 Laboratory test 01/27/2019 [facility] Lactic Acid 1.6 mmol/L Normal 0.5-2.0 [address] [place], [place] [id number] [phone] Laboratory test 01/27/2019 [facility] C Reactive 33.01 mg/L High <8.01 [address] [place] [address] [phone] Erythrocyte Sed Rate 104 mm/Hr High 0-19 21 Urine Culture And 01/27/2019 [facility] Urine Culture SEE RESULT [address] [place] [address] [phone] Urinalysis Profile 01/27/2019 [facility] Urine Color Ciarra [address] [place] [address] [phone] Urine Appearance Cloudy Urine Specific [place] 1.030 Normal 1.010-1.030 Urine pH 5.0 Normal 5-9 Urine Urobilinogen Positive Abnormal Negative Urine Ketones Negative Negative Urine Protein 1+(30 mg/dL) Abnormal Negative Urine Leukocytes Negative Negative Urine Blood Negative Negative Urine Nitrite Negative Negative Urine Bilirubin Negative Negative Urine Glucose Negative Negative Urine White Blood Cell Trace(0-5/hpf) Absent Urine Red Blood Cell Trace(0-2/hpf) Absent Urine Bacteria Absent Absent Urine Hyaline Casts Present Abnormal Absent Laboratory 12/28/2018 [facility] Point of Care 157 mg/dL High 70-100 23 test finding [address] Glucose [place], [place] [id number] [phone] Urine Drug SCR 12/28/2018 [facility] Urine None None ED & Pain [address] Amphetamine [place] [address] Screen [phone] Urine Barbiturates Screen None Detected None Detect Urine Benzodiazepine Screen None Detected None Detect Urine Cannabinoids Screen Presumptive Posi <SEE NOTE> Abnormal None Detect 24 Urine Cocaine Screen None Detected None Detect Urine Opiates Screen Presumptive Posi <SEE NOTE> Abnormal None Detect 25 Urine Phencyclidine Screen None Detected None Detect 26 CBC Auto 12/28/2018 [facility] White Blood 16.7 10^3/uL High 3.5-10.[address] [place] [address] [phone] Red Blood Count 4.30 10^6/uL Normal 3.70-4.87 Hemoglobin 12.4 g/dL Normal 12.0-16.0 Hematocrit 39 % Normal 35-47 Mean Corpuscular Volume 90 fL Normal 80-97 Mean Corpuscular Hemoglobin 29 pg Normal 27-31 Mean Corpuscular HGB Conc 32 g/dL Normal 31-36 Red Cell Distribution Width 15 % Normal 10.5-15 Platelet Count 312 10^3/uL Normal 150-450 Mean Platelet Volume 6.5 fL Low 7.4-10.4 Abs Neutrophils 11.8 10^3/uL High 1.5-7.7 Abs Lymphocytes 3.5 10^3/uL Normal 1.0-4.8 Abs Monocytes 1.2 10^3/uL High 0-0.8 Abs Eosinophils 0.2 10^3/uL Normal 0-0.6 Abs Basophils 0.1 10^3/uL Normal 0-0.2 Abs Nucleated RBC 0.0 10^3/uL Granulocyte % 70.5 % Lymphocyte % 20.7 % Monocyte % 7.3 % Eosinophil % 1.0 % Basophil % 0.5 % Nucleated Red Blood Cells % 0.0 Laboratory test 12/28/2018 [facility] Lactic Acid 1.3 mmol/L Normal 0.5-2.0 [address] [place] [address] [phone] Acetaminophen < 15 g/mL 28 Alcohol < 10 mg/dL Normal <10 Salicylate < 2.50 mg/dL <30 Comp Metabolic 12/28/2018 [facility] Sodium 137 mmol/L Normal 135-[address] [place] [address] [phone] Potassium 4.0 mmol/L Normal 3.5-5.0 Chloride 109 mmol/L Normal 101-111 Co2 Carbon Dioxide 19 mmol/L Low 22-32 Anion Gap 9 mmol/L Normal 2-11 Glucose 179 mg/dL High 70-100 Blood Urea Nitrogen 12 mg/dL Normal 6-24 Creatinine 0.68 mg/dL Normal 0.51-0.95 BUN/Creatinine Ratio 17.6 Normal 8-20 Calcium 9.0 mg/dL Normal 8.6-10.3 Total Protein 7.2 g/dL Normal 6.4-8.9 Albumin 3.5 g/dL Normal 3.2-5.2 Globulin 3.7 g/dL Normal 2-4 Albumin/Globulin Ratio 0.9 Low 1-3 Total Bilirubin 0.40 mg/dL Normal 0.2-1.0 Alkaline Phosphatase 116 U/L High 34-104 Alt 16 U/L Normal 7-52 Ast 16 U/L Normal 13-39 Egfr Non- 97.9 >60 Egfr 118.5 >60 29 Laboratory test 12/28/2018 [facility] HCG < 0.60 mIU/ mL [address] [place] [address] [phone] TSH (Thyroid Stim Horm) 0.91 mcIU/mL Normal 0.34-5.60 Urinalysis Profile 12/28/2018 [facility] Urine Color Yellow [address] [place] [address] [phone] Urine Appearance Clear Urine Specific [place] 1.023 Normal 1.010-1.030 Urine pH 6.0 Normal 5-9 Urine Urobilinogen Negative Negative Urine Ketones Negative Negative Urine Protein Negative Negative Urine Leukocytes Negative Negative Urine Blood Negative Negative Urine Nitrite Negative Negative Urine Bilirubin Negative Negative Urine Glucose Negative Negative Urine White Blood Cell Absent Absent Urine Red Blood Cell Absent Absent Urine Bacteria Absent Absent Urine Squamous Epithelial Cell Present Abnormal Absent Laboratory test 12/19/2018 [facility] Point of 169 mg/dL High 70-100 [address] [place] [address] [phone] CBC Auto Diff 12/19/2018 [facility] White Blood 14.8 High 3.5- 10.[address] Count 10^3/[place] [address] [phone] Red Blood Count 4.86 10^6/uL Normal 3.70-4.87 Hemoglobin 14.1 g/dL Normal 12.0-16.0 Hematocrit 43 % High 33-41 Mean Corpuscular Volume 89 fL Normal 80-97 Mean Corpuscular Hemoglobin 29 pg Normal 27-31 Mean Corpuscular HGB Conc 33 g/dL Normal 31-36 Red Cell Distribution Width 14 % Normal 10.5-15 Platelet Count 394 10^3/uL Normal 150-450 Mean Platelet Volume 6.9 fL Low 7.4-10.4 Abs Neutrophils 9.6 10^3/uL High 1.5-7.7 Abs Lymphocytes 4.0 10^3/uL Normal 1.0-4.8 Abs Monocytes 1.0 10^3/uL High 0-0.8 Abs Eosinophils 0.1 10^3/uL Normal 0-0.6 Abs Basophils 0.1 10^3/uL Normal 0-0.2 Abs Nucleated RBC 0 10^3/uL Granulocyte % 64.9 % Lymphocyte % 27.1 % Monocyte % 6.7 % Eosinophil % 0.6 % Basophil % 0.7 % Nucleated Red Blood Cells % 0 Urine Drug 12/19/2018 [facility] Urine None Detected None Detect SCR ED & [address] [place] [address] Screen [phone] Urine Barbiturates Screen None Detected None Detect Urine Benzodiazepine Screen None Detected None Detect Urine Cannabinoids Screen Presumptive Posi <SEE NOTE> Abnormal None Detect 32 Urine Cocaine Screen None Detected None Detect Urine Opiates Screen None Detected None Detect Urine Phencyclidine Screen None Detected None Detect 33 Comp Metabolic Panel 12/19/2018 [facility] Sodium 134 mmol/L Low 135-[address] [place] [address] [phone] Potassium 4.2 mmol/L Normal 3.5-5.0 Chloride 104 mmol/L Normal 101-111 Co2 Carbon Dioxide 21 mmol/L Low 22-32 Anion Gap 9 mmol/L Normal 2-11 Glucose 197 mg/dL High 70-100 Blood Urea Nitrogen 8 mg/dL Normal 6-24 Creatinine 0.75 mg/dL Normal 0.51-0.95 BUN/Creatinine Ratio 10.7 Normal 8-20 Calcium 9.5 mg/dL Normal 8.6-10.3 Total Protein 8.6 g/dL Normal 6.4-8.9 Albumin 4.2 g/dL Normal 3.2-5.2 Globulin 4.4 g/dL High 2-4 Albumin/Globulin Ratio 1.0 Normal 1-3 Total Bilirubin 0.50 mg/dL Normal 0.2-1.0 Alkaline Phosphatase 114 U/L High 34-104 Alt 12 U/L Normal 7-52 Ast 11 U/L Low 13-39 Egfr Non- 87.4 >60 Egfr 105.8 >60 34 Laboratory test 12/19/2018 [facility] Acetaminophen < 15 g/mL [address] [place] [address] [phone] Alcohol < 10 mg/dL Normal <10 Salicylate < 2.50 mg/dL <30 TSH (Thyroid Stim Horm) 1.11 mcIU/mL Normal 0.34-5.60 Urinalysis Profile 12/19/2018 [facility] Urine Color Ciarra [address] [place] [address] [phone] Urine Appearance Cloudy Urine Specific [place] 1.026 Normal 1.010-1.030 Urine pH 5.0 Normal 5-9 Urine Urobilinogen Negative Negative Urine Ketones Negative Negative Urine Protein 1+(30 mg/dL) Abnormal Negative Urine Leukocytes Negative Negative Urine Blood Negative Negative Urine Nitrite Negative Negative Urine Bilirubin Negative Negative Urine Glucose Negative Negative Urine White Blood Cell Trace(0-5/hpf) Absent Urine Red Blood Cell 1+(3-5/hpf) Abnormal Absent Urine Bacteria Absent Absent Urine Squamous Epithelial Cell Present Abnormal Absent Urine Culture And 12/19/2018 [facility] Urine Culture SEE RESULT [address] [place] [address] [phone] Urine Culture And 12/18/2018 [facility] Urine Culture SEE RESULT [address] [place] [address] [phone] Urinalysis Profile 12/18/2018 [facility] Urine Color Ciarra [address] [place] [address] [phone] Urine Appearance Cloudy Urine Specific [place] 1.028 Normal 1.010-1.030 Urine pH 6.0 Normal 5-9 Urine Urobilinogen Negative Negative Urine Ketones Trace Abnormal Negative Urine Protein 1+(30 mg/dL) Abnormal Negative Urine Leukocytes Negative Negative Urine Blood Negative Negative Urine Nitrite Negative Negative Urine Bilirubin Negative Negative Urine Glucose Negative Negative Urine White Blood Cell Trace(0-5/hpf) Absent Urine Red Blood Cell 1+(3-5/hpf) Abnormal Absent Urine Bacteria Absent Absent Urine Squamous Epithelial Cell Present Abnormal Absent CBC Auto 12/18/2018 [facility] White Blood 13.3 10^3/uL High 3.5-10.[address] [place] [address] [phone] Red Blood Count 4.58 10^6/uL Normal 3.70-4.87 Hemoglobin 13.5 g/dL Normal 12.0-16.0 Hematocrit 41 % Normal 33-41 Mean Corpuscular Volume 89 fL Normal 80-97 Mean Corpuscular Hemoglobin 30 pg Normal 27-31 Mean Corpuscular HGB Conc 33 g/dL Normal 31-36 Red Cell Distribution Width 14 % Normal 10.5-15 Platelet Count 379 10^3/uL Normal 150-450 Mean Platelet Volume 6.6 fL Low 7.4-10.4 Abs Neutrophils 9.0 10^3/uL High 1.5-7.7 Abs Lymphocytes 3.2 10^3/uL Normal 1.0-4.8 Abs Monocytes 1.0 10^3/uL High 0-0.8 Abs Eosinophils 0.1 10^3/uL Normal 0-0.6 Abs Basophils 0.1 10^3/uL Normal 0-0.2 Abs Nucleated RBC 0 10^3/uL Granulocyte % 67.6 % Lymphocyte % 23.9 % Monocyte % 7.2 % Eosinophil % 0.7 % Basophil % 0.6 % Nucleated Red Blood Cells % 0 Basic Metabolic 12/18/2018 [facility] Sodium 135 mmol/L Normal 135-[address] [place] [address] [phone] Potassium 3.7 mmol/L Normal 3.5-5.0 Chloride 106 mmol/L Normal 101-111 Co2 Carbon Dioxide 20 mmol/L Low 22-32 Anion Gap 9 mmol/L Normal 2-11 Glucose 187 mg/dL High 70-100 Blood Urea Nitrogen 8 mg/dL Normal 6-24 Creatinine 0.66 mg/dL Normal 0.51-0.95 BUN/Creatinine Ratio 12.1 Normal 8-20 Calcium 9.4 mg/dL Normal 8.6-10.3 Egfr Non- 101.3 >60 Egfr 122.6 >60 38 Inr/Protime 12/14/2018 [facility] Inr 1.15 High 0.82-1.[address] [place] [address] [phone] Laboratory test 12/14/2018 [facility] Partial 36.8 High 26.0- 36.[address] [place] [place] [address] Time PTT [phone] CBC Auto Diff 12/14/2018 [facility] White Blood 19.5 High 3.5- 10.[address] Count 10^3/[place] [address] [phone] Red Blood Count 4.94 10^6/uL High 3.70-4.87 Hemoglobin 14.5 g/dL Normal 12.0-16.0 Hematocrit 44 % High 33-41 Mean Corpuscular Volume 89 fL Normal 80-97 Mean Corpuscular Hemoglobin 29 pg Normal 27-31 Mean Corpuscular HGB Conc 33 g/dL Normal 31-36 Red Cell Distribution Width 14 % Normal 10.5-15 Platelet Count 455 10^3/uL High 150-450 Mean Platelet Volume 6.7 fL Low 7.4-10.4 Abs Neutrophils 12.6 10^3/uL High 1.5-7.7 Abs Lymphocytes 5.2 10^3/uL High 1.0-4.8 Abs Monocytes 1.4 10^3/uL High 0-0.8 Abs Eosinophils 0.2 10^3/uL Normal 0-0.6 Abs Basophils 0.1 10^3/uL Normal 0-0.2 Abs Nucleated RBC 0 10^3/uL Granulocyte % 64.4 % Lymphocyte % 26.7 % Monocyte % 7.4 % Eosinophil % 0.9 % Basophil % 0.6 % Nucleated Red Blood Cells % 0 Laboratory test 12/14/2018 [facility] Lactic Acid 0.7 mmol/L Normal 0.5-2.0 40 finding [address] [place] [address] [phone] Comp Metabolic 12/14/2018 [facility] Sodium 136 mmol/L Normal 135-[address] [place] [address] [phone] Potassium 4.4 mmol/L Normal 3.5-5.0 Chloride 103 mmol/L Normal 101-111 Co2 Carbon Dioxide 20 mmol/L Low 22-32 Anion Gap 13 mmol/L High 2-11 Calcium 10.0 mg/dL Normal 8.6-10.3 Albumin 4.2 g/dL Normal 3.2-5.2 Total Bilirubin 0.40 mg/dL Normal 0.2-1.0 Glucose 175 mg/dL High 70-100 Blood Urea Nitrogen 14 mg/dL Normal 6-24 Creatinine 0.85 mg/dL Normal 0.51-0.95 BUN/Creatinine Ratio 16.5 Normal 8-20 Total Protein 8.8 g/dL Normal 6.4-8.9 Globulin 4.6 g/dL High 2-4 Albumin/Globulin Ratio 0.9 Low 1-3 Alkaline Phosphatase 131 U/L High 34-104 Alt 11 U/L Normal 7-52 Ast 14 U/L Normal 13-39 Egfr Non- 75.7 >60 Egfr 91.6 >60 41 Laboratory test 12/14/2018 [facility] Troponin-I (TnI) 0.01 ng/ mL <0.04 [address] [place], [place] [address] [phone] Lipase 10 U/L Low 11.0-82.0 C Reactive Protein 29.09 mg/L High <8.01 HCG < 0.60 mIU/mL 43 Urinalysis Profile 12/14/2018 [facility] Urine Color Ciarra [address] [place], [place] [address] [phone] Urine Appearance Cloudy Urine Specific [place] 1.028 Normal 1.010-1.030 Urine pH 5.0 Normal 5-9 Urine Urobilinogen Negative Negative Urine Ketones 1+ Abnormal Negative Urine Protein 1+(30 mg/dL) Abnormal Negative Urine Leukocytes Negative Negative Urine Blood Negative Negative Urine Nitrite Negative Negative Urine Bilirubin 1+ Abnormal Negative Urine Glucose Negative Negative Urine White Blood Cell 2 Absent Urine Bacteria 3+ Abnormal Absent Urine Squamous Epithelial Cell Present Abnormal Absent Laboratory test 12/14/2018 [facility] Pathologist (SEE [address] Review NOTE) [place] [address] [phone] Urine Culture And 12/14/2018 [facility] Urine Culture SEE [address] [place] [address] BELOW [phone] Laboratory test 11/16/2018 [facility] Ferritin 168.4 Normal 11 - 46, finding [address] ng/mL 307 [address] [place], [place] [address] [phone] 1 Urgent Care Physician Assistant: [id number] 2 Urgent Care Physician Assistant: [id number] 3 Therapeutic target for the treatment of diabetes mellitus patients is <7% HBA1C, and in selective patients <6.0%. Please refer to [place] [employer] diabetic care guidelines for further information. 4 Unable to calculate due to low microalbumin 5 Desirable: <150 Borderline High: 150-199 High: 200-499 Very High: >500 6 Desirable: <200 Borderline High: 200-239 High: >239 7 Low: <40 Desirable: 40-60 High: >60 8 Desirable: <100 Near Optimal: 100-129 Borderline High: 130-159 High: 160-189 Very High: >189 9 Test Performed by: [facility] [address] [place] [address] 10 Because ethnic data is not always readily available, this report includes an eGFR for both -Americans and non- Americans. The National Kidney Disease Education Program (NKDEP) does not endorse the use of the MDRD equation for patients that are not between the ages of 18 and 70, are , have extremes of body size, muscle mass, or nutritional status, or are non- or non-. According to the National Kidney Foundation, irrespective of diagnosis, the stage of the disease is based on the level of kidney function: Stage Description GFR(mL/min/1.73 m(2)) 1 Kidney damage with normal or decreased GFR 90 2 Kidney damage with mild decrease in GFR 60-89 3 Moderate decrease in GFR 30-59 4 Severe decrease in GFR 15-29 5 Kidney failure <15 (or dialysis) 11 Patient is On Antibiotics? NO 12 SEE RESULT BELOW Name: JAYY CANTU : [address]: Lauro Ramirez MD Acct: [id number] Unit: [id number] AGE: 38 Location: ED Re01/27/19 SEX: F Status: DEP ER SPEC: [id number] [place]: 01/27/[address] [facility] [address]: Lauro Ramirez MD REQ: [id number] RECD: 01/27/19 STATUS: JOEL GARCIA DR: Kimberlyn Dhillon MD _ SOURCE: BLOOD,VENO SPDESC: ORDERED: Blood Cult COMMENTS: Patient is On Antibiotics? NO Procedure Result Reported Site Aerobic Culture Bottle Final 02/01/19- 2300 ML No Growth Day 5 Anaerobic Culture Bottle Final 02/01/192300 ML No Growth Day 5 * ML - Main Lab . END OF REPORT DEPARTMENT OF PATHOLOGY, [address] [place] [address] Simón Uriarte M.D. Director [facility] # [id number] 13 Reference ranges based on room air. 14 Because ethnic data is not always readily available, this report includes an eGFR for both -Americans and non- Americans. The National Kidney Disease Education Program (NKDEP) does not endorse the use of the MDRD equation for patients that are not between the ages of 18 and 70, are , have extremes of body size, muscle mass, or nutritional status, or are non- or non-. According to the National Kidney Foundation, irrespective of diagnosis, the stage of the disease is based on the level of kidney function: Stage Description GFR(mL/min/1.73 m(2)) 1 Kidney damage with normal or decreased GFR 90 2 Kidney damage with mild decrease in GFR 60-89 3 Moderate decrease in GFR 30-59 4 Severe decrease in GFR 15-29 5 Kidney failure <15 (or dialysis) 15 Critical Result CO2:[address] RODRIGUEZ at: 19:28:13 by:[id number] Read back by:DR RODRIGUEZ 16 Because ethnic data is not always readily available, this report includes an eGFR for both -Americans and non- Americans. The National Kidney Disease Education Program (NKDEP) does not endorse the use of the MDRD equation for patients that are not between the ages of 18 and 70, are , have extremes of body size, muscle mass, or nutritional status, or are non- or non-. According to the National Kidney Foundation, irrespective of diagnosis, the stage of the disease is based on the level of kidney function: Stage Description GFR(mL/min/1.73 m(2)) 1 Kidney damage with normal or decreased GFR 90 2 Kidney damage with mild decrease in GFR 60-89 3 Moderate decrease in GFR 30-59 4 Severe decrease in GFR 15-29 5 Kidney failure <15 (or dialysis) 17 Troponin-I testing on Plasma Separator Tubes (PST) has a known false positive rate of 0.20-0.40%. All positive troponins reflex immediately to secondary confirmatory testing. Using the Graphdive DxI 800 Access Immunoassay systems, the 99th percentile upper reference limit was demonstrated to be < 0.03 ng/mL. 18 <5.0 Negative 5.0 - 25.0 Indeterminate (Repeat testing recommended after 72 hours) >25.0 Positive Perimenopausal women can display HCG levels of up to 20 mIU/mL 19 [facility] Severe Sepsis and Septic Shock Management Bundle Measure requires all lactic acids initially measuring >2.0 mmol/L be repeated. 20 Please check labs this week 21 Please check labs this week 22 SEE RESULT BELOW Name: PEPESOUTHJAYY : [address]: Lauro Ramirez MD Acct: [id number] Unit: [id number] AGE: 38 Location: ED Re01/27/19 SEX: F Status: REG ER SPEC: [id number] [place]: 01/27/[address] [facility] [address]: Lauro Ramirez MD REQ: [id number] RECD: 01/27/19 STATUS: JOEL GARCIA DR: Kimberlyn Dhillon MD _ SOURCE: URINE SPDESC: ORDERED: Urine Culture Procedure Result Reported Site Urine Culture Final 01/29/19- 0809 ML No growth of clinically significant organisms * ML - Main Lab . END OF REPORT DEPARTMENT OF PATHOLOGY, [address] [place] [address] Simón Uriarte M.D. Director [facility] # [id number] 23 Urgent Care Physician Assistant: [id number] Presumptive Positive Presumptive positive results are unconfirmed. 25 Presumptive Positive Presumptive positive results are unconfirmed. 26 The urine specimen was tested at the listed cutoffs: Drug class test level (ng/mL) Amphetamines 500 Barbiturates 200 Benzodiazepine metabolites 200 Cocaine metabolites 150 Cannabinoids 50 Opiates 300 Pcp 25 Specimen was received without chain of custody. Results should be used for medical purposes only. 27 [facility] Severe Sepsis and Septic Shock Management Bundle Measure requires all lactic acids initially measuring >2.0 mmol/L be repeated. 28 Therapeutic concentration: <50 ug/mL Toxic concentration: >120 ug/mL 29 Because ethnic data is not always readily available, this report includes an eGFR for both -Americans and non- Americans. The National Kidney Disease Education Program (NKDEP) does not endorse the use of the MDRD equation for patients that are not between the ages of 18 and 70, are , have extremes of body size, muscle mass, or nutritional status, or are non- or non-. According to the National Kidney Foundation, irrespective of diagnosis, the stage of the disease is based on the level of kidney function: Stage Description GFR(mL/min/1.73 m(2)) 1 Kidney damage with normal or decreased GFR 90 2 Kidney damage with mild decrease in GFR 60-89 3 Moderate decrease in GFR 30-59 4 Severe decrease in GFR 15-29 5 Kidney failure <15 (or dialysis) 30 <5.0 Negative 5.0 - 25.0 Indeterminate (Repeat testing recommended after 72 hours) >25.0 Positive Perimenopausal women can display HCG levels of up to 20 mIU/mL 31 Urgent Care Physician Assistant: [id number] 32 Presumptive Positive Presumptive positive results are unconfirmed. 33 The urine specimen was tested at the listed cutoffs: Drug class test level (ng/mL) Amphetamines 500 Barbiturates 200 Benzodiazepine metabolites 200 Cocaine metabolites 150 Cannabinoids 50 Opiates 300 Pcp 25 Specimen was received without chain of custody. Results should be used for medical purposes only. 34 Because ethnic data is not always readily available, this report includes an eGFR for both -Americans and non- Americans. The National Kidney Disease Education Program (NKDEP) does not endorse the use of the MDRD equation for patients that are not between the ages of 18 and 70, are , have extremes of body size, muscle mass, or nutritional status, or are non- or non-. According to the National Kidney Foundation, irrespective of diagnosis, the stage of the disease is based on the level of kidney function: Stage Description GFR(mL/min/1.73 m(2)) 1 Kidney damage with normal or decreased GFR 90 2 Kidney damage with mild decrease in GFR 60-89 3 Moderate decrease in GFR 30-59 4 Severe decrease in GFR 15-29 5 Kidney failure <15 (or dialysis) 35 Therapeutic concentration: <50 ug/mL Toxic concentration: >120 ug/mL 36 SEE RESULT BELOW Name: JAYY CANTU : [address]: Reggie Bergeron MD Acct: [id number] Unit: [id number] AGE: 38 Location: [facility] Re12/19/18 SEX: F Status: ADM IN SPEC: [id number] [place]: 12/19/[address]: Ralph Bernal MD REQ: [id number] RECD: 12/19/18 STATUS: COMP JOSE DR: Kimberlyn Dhillon MD _ SOURCE: URINE SPDESC: ORDERED: Urine Culture Procedure Result Reported Site Urine Culture Final 12/20/18- 1634 ML No Growth (<1,000 CFU/mL) * - Main Lab . END OF REPORT DEPARTMENT OF PATHOLOGY, [address] [place] [address] Simón Uriarte M.D. Director [facility] # [id number] 37 SEE RESULT BELOW Name: JAYY CANTU : [address]: Lauro Ramirez MD Acct: [id number] Unit: [id number] AGE: 38 Location: ED Re12/18/18 SEX: F Status: DEP ER SPEC: [id number] [place]: 12/18/[address] [facility] [address]: Lauro Ramirez MD REQ: [id number] RECD: 12/18/18 STATUS: JOEL GARCIA DR: Kimberlyn Dhillon MD _ SOURCE: URINE SPDESC: ORDERED: Urine Culture Procedure Result Reported Site Urine Culture Final 12/19/18- 1412 ML No Growth (<1,000 CFU/mL) * ML - Main Lab . END OF REPORT DEPARTMENT OF PATHOLOGY, [address] [place] [address] Simón Uriarte M.D. Director [facility] # [id number] 38 Because ethnic data is not always readily available, this report includes an eGFR for both -Americans and non- Americans. The National Kidney Disease Education Program (NKDEP) does not endorse the use of the MDRD equation for patients that are not between the ages of 18 and 70, are , have extremes of body size, muscle mass, or nutritional status, or are non- or non-. According to the National Kidney Foundation, irrespective of diagnosis, the stage of the disease is based on the level of kidney function: Stage Description GFR(mL/min/1.73 m(2)) 1 Kidney damage with normal or decreased GFR 90 2 Kidney damage with mild decrease in GFR 60-89 3 Moderate decrease in GFR 30-59 4 Severe decrease in GFR 15-29 5 Kidney failure <15 (or dialysis) 39 Standard intensity warfarin therapeutic range: 2.0-3.0 High intensity warfarin therapeutic range: 2.5-3.5 40 [facility] Severe Sepsis and Septic Shock Management Bundle Measure requires all lactic acids initially measuring >2.0 mmol/L be repeated. 41 Because ethnic data is not always readily available, this report includes an eGFR for both -Americans and non- Americans. The National Kidney Disease Education Program (NKDEP) does not endorse the use of the MDRD equation for patients that are not between the ages of 18 and 70, are , have extremes of body size, muscle mass, or nutritional status, or are non- or non-. According to the National Kidney Foundation, irrespective of diagnosis, the stage of the disease is based on the level of kidney function: Stage Description GFR(mL/min/1.73 m(2)) 1 Kidney damage with normal or decreased GFR 90 2 Kidney damage with mild decrease in GFR 60-89 3 Moderate decrease in GFR 30-59 4 Severe decrease in GFR 15-29 5 Kidney failure <15 (or dialysis) 42 Troponin-I testing on Plasma Separator Tubes (PST) has a known false positive rate of 0.20-0.40%. All positive troponins reflex immediately to secondary confirmatory testing. Using the Graphdive DxI 800 Access Immunoassay systems, the 99th percentile upper reference limit was demonstrated to be < 0.03 ng/mL. 43 <5.0 Negative 5.0 - 25.0 Indeterminate (Repeat testing recommended after 72 hours) >25.0 Positive Perimenopausal women can display HCG levels of up to 20 mIU/mL 44 Leukocytosis with absolute neutrophilia and monocytosis consistent with prior results. Additional studies as clinically warranted. Reviewed by Dr. Uriarte Reviewed by Dr. Uriarte 45 SEE RESULT BELOW Name: JAYY CNATU : [address]: Lauro Ramirez MD Acct: [id number] Unit: [id number] AGE: 38 Location: ED Re12/14/18 SEX: F Status: DEP ER SPEC: [id number] [place]: 12/14/[address] [facility] [address]: Gene Gonzalez MD REQ: [id number] RECD: 12/14/18 STATUS: COMP OTHR DR: Kimberlyn Dhillon MD _ SOURCE: URINE SPDESC: ORDERED: Urine Culture Urine Source: Clean Catch Procedure Result Reported Site Urine Culture Final 12/15/18- 1601 ML No Growth (<1,000 CFU/mL) * ML - Main Lab . END OF REPORT DEPARTMENT OF PATHOLOGY, [address] [place] [address] Simón Uriarte M.D. Director [facility] # [id number] 46 FASTING 47 FASTING Procedures Date Code Description Status 04/19/2019 45185 Arthroscopy Shoulder,W/Rotator Cuff Repair Completed 04/19/2019 65155 Arthroscopy,Shoulder Decompression Of Subacromial Completed Space W/Acromio 04/06/2019 77278 Treadmill Interp/Report Only Completed 04/06/2019 09074 Stress Test Supervsn W/Out I/R Completed 03/27/2019 55263 EKG Tracing & Interpretation Completed 02/10/2019 86564 Inject/Drain Joint/Bursa Major W/O US Completed 12/13/2018 12160 Polysomnography Sleep Staging 4+ Parameters Completed 11/10/2018 93957 Inject/Drain Joint/Bursa Major W/O US Completed 12/24/2016 [id number] Diabetic Retinal Eye Exam Completed Medical Devices Description No Information Available Encounters Type Date Location Provider Dx Diagnosis Office Visit 04/20/2019 [facility] G47.33 Obstructive sleep 1:50p [place] apnea (adult) [facility] [place] (pediatric) Office Visit 04/19/2019 [facility] G47.33 Obstructive sleep 1:49p cherry Rojas apnea (adult) [facility] [place] (pediatric) E11.9 Type 2 diabetes mellitus without complications 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 F41.9 Anxiety disorder, unspecified Office Visit 03/29/2019 [facility] G47.33 Obstructive sleep 1:30p [facility] [place] apnea (adult) [facility] (pediatric) E66.9 Obesity, unspecified Z68.43 Body mass index (BMI) 50.0-59.9, adult Office Visit 03/27/2019 1:20p [facility] Internal Mejia Valdivia, Z01.818 Encounter for other Medicine - preprocedural [address] examination M25.811 Other specified joint disorders, right shoulder 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 limited to the skin, unspecified Z79.899 Other mcfp (current) drug therapy R19.7 Diarrhea, unspecified B37.0 Candidal stomatitis D72.829 Elevated white blood cell count, unspecified Office Visit 02/21/2019 2:00p [facility] Internal Kimberlyn G47.33 Obstructive sleep Medicine - [place] Dhillon apnea (adult) [facility] (pediatric) E78.2 Mixed hyperlipidemia J45.40 Moderate persistent asthma, uncomplicated E10.65 Type 1 diabetes mellitus with hyperglycemia I73.9 Peripheral vascular disease, unspecified I83.93 Asymptomatic varicose veins of bilateral lower extremities Office 02/15/2019 Neurohospitalist Jillian G43.719 Chronic migraine Visit 11:00a [facility] [place] w/o aura, intractable, w/o stat migr Office 02/10/2019 Orthopedic Services Obdulia Christy.41 Impingement Visit 11:30a Of [place] CAMARENA syndrome of right shoulder Office 01/02/2019 [facility] Francheska E10.65 Type 1 diabetes Visit 4:30p Endocrinology of [facility] Marker, RPA-C mellitus with hyperglycemia Office 12/19/2018 [facility] Sleep Jenny G47.33 Obstructive sleep Visit 2:30p Services Of [facility] GEM [place] apnea (adult) (pediatric) G47.00 Insomnia, unspecified E66.01 Morbid (severe) obesity due to excess calories G25.81 Restless legs syndrome F43.10 Post-traumatic stress disorder, unspecified Z72.821 Inadequate sleep hygiene Z68.42 Body mass index (BMI) 45.0-49.9, adult Office Visit 12/12/2018 3:40p Rheumatology Mike L95.9 Vasculitis Services Of T[facility] Trailer Filler Ashwini, M.D. limited to the skin, unspecified Z79.899 Other mcfp (current) drug therapy G62.9 Polyneuropathy, unspecified G25.81 Restless legs syndrome Office Visit 11/16/2018 1:30p Pulmonology And Meaghan G47.9 Sleep disorder, Sleep Services Of MD Radha unspecified [facility] R53.83 Other fatigue G25.81 Restless legs syndrome E66.9 Obesity, unspecified Z68.43 Body mass index (BMI) 50.0-59.9, adult Office Visit 11/11/2018 Peng Rosa, G43.719 Chronic migraine 2:00p Neurologic M.D. w/o aura, [facility] [employer] [employer] intractable, w/o stat migr Office Visit 11/10/2018 Orthopedic Adrian Christy75.41 Impingement 2:45p Services Of syndrome of right C.M.A. shoulder Assessments Date Code Description Provider 05/02/2019 M25.512 Pain in left shoulder Jak Booker MD 05/02/2019 S46.011A Strain of muscle(s) and tendon(s) of the Jak Booker MD rotator cuff of right shoulder, initial encounter 04/20/2019 G47.33 Obstructive sleep apnea (adult) Ed Hylton M.D. (pediatric) 04/19/2019 G47.33 Obstructive sleep apnea (adult) Ed Hylton M.D. (pediatric) 04/19/2019 E11.9 Type 2 diabetes mellitus without Ed Hylton M.D. 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 04/19/2019 F41.9 Anxiety disorder, unspecified Ed Hylton M.D. 04/19/2019 S46.111A Strain of muscle, fascia and tendon of Jak Booker MD long head of biceps, right arm, initial encounter 04/19/2019 S46.011A Strain of muscle(s) and tendon(s) of the Jak Booker MD rotator cuff of right shoulder, initial encounter 04/13/2019 M25.811 Other specified joint disorders, right Jak Booker MD shoulder 04/13/2019 M75.41 Impingement syndrome of right shoulder Jak Booker MD 04/06/2019 R94.31 Abnormal electrocardiogram [ECG] [EKG] Sheila Corbett M.D. 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 unspecified 03/01/2019 Z79.899 Other [facility] (current) drug therapy Mike Maradiaga M.D. 03/01/2019 R19.7 Diarrhea, unspecified Mike Maradiaga M.D. 03/01/2019 B37.0 Candidal stomatitis Mike Maradiaga M.D. 03/01/2019 D72.829 Elevated white blood cell count, Mike Maradiaga M.D. unspecified 02/21/2019 G47.33 Obstructive sleep apnea (adult) Kimberlyn Dhillon M.D. (pediatric) 02/21/2019 E78.2 Mixed hyperlipidemia Kimberlyn Dhillon M.D. 02/21/2019 J45.40 Moderate persistent asthma, Kimberlyn Dhillon M.D. uncomplicated 02/21/2019 E10.65 Type 1 diabetes mellitus with Kimberlyn Dhillon M.D. hyperglycemia 02/21/2019 I73.9 Peripheral vascular disease, unspecified Kimberlyn Dhillon M.D. 02/21/2019 I83.93 Asymptomatic varicose veins of bilateral Kimberlyn Dhillon M.D. lower extremities 02/15/2019 G43.719 Chronic migraine without aura, Jillian Rosa M.D. intractable, without status m 02/10/2019 M75.41 Impingement syndrome of right shoulder Jak Booker MD 01/02/2019 E10.65 Type 1 diabetes mellitus with Francheska Marker, RPA-C hyperglycemia 12/19/2018 G47.33 Obstructive sleep apnea (adult) Jenny Winston NP (pediatric) 12/19/2018 G47.00 Insomnia, unspecified Jenny Winston NP 12/19/2018 E66.01 Morbid (severe) obesity due to excess Jenny Winston NP calories 12/19/2018 G25.81 Restless legs syndrome Jenny Winston NP 12/19/2018 F43.10 Post-traumatic stress disorder, Jenny Winston NP unspecified 12/19/2018 Z72.821 Inadequate sleep hygiene Jenny Winston NP 12/19/2018 Z68.42 Body mass index (BMI) 45.0-49.9, adult Jenny Winston NP 12/13/2018 G47.33 Obstructive sleep apnea (adult) Meaghan Garcia MD (pediatric) 12/12/2018 L95.9 Vasculitis limited to the skin, Mike Maradiaga M.D. 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 12/12/2018 G62.9 Polyneuropathy, unspecified Mike Maradiaga M.D. 12/12/2018 G25.81 Restless legs syndrome Mike Maradiaga M.D. 11/16/2018 G47.9 Sleep disorder, unspecified Meaghan Garcia MD 11/16/2018 R53.83 Other fatigue Meaghan Garcia MD 11/16/2018 G25.81 Restless legs syndrome Meaghan Garcia MD 11/16/2018 E66.9 Obesity, unspecified Meaghan Garcia MD 11/16/2018 Z68.43 Body mass index (BMI) 50-59.9, adult Meaghan Garcia MD 11/11/2018 G43.719 Chronic migraine without aura, Jillian Rosa M.D. intractable, without status m 11/10/2018 M75.41 Impingement syndrome of right shoulder Jak Booker MD Plan of Treatment Future Appointment(s):05/30/2019 2:30 pm - Jak Booker MD at [facility]05/10/2019 2:30 pm - Jenny Winston NP at [facility]08/02/2019 11:00 am - Jillian Rosa M.D. at [facility] Functional Status Description No Information Available Mental Status Description No Information Available Referrals Refer to Dr Reason for Referral Status Appt Date Brett Kelley, DO, FACC surgical clearance, intermittent chest Sent 00/00 /0000 pain. ordering stress test [address] [place] [address] [phone]
--- OUTSIDE RECORDS SUMMARY | 2019-05-23 07:09 | XMS REPORT | Continuity of Care Document ---
:1980 External Reference #:[id number] Author Name Jak Booker MD (transmitted by agent of provider Wanda Mcgarry) Address [address] [facility], [place] [address] Care Team Providers Name Role Phone Mike Maradiaga MD - Rheumatology Care Team Information Milk Pickup Driver Patel Bhat MD - Gastroenterology Care Team Information Milk Pickup Driver Abad Dempsey MD - Dermatology Care Team Information Milk Pickup Driver [facility] - Gynecology Care Team Information Milk Pickup Driver Vinnie Gunderson MD - Obstetrics & Care Team Information Milk Pickup Driver [phone] Gynecology Kimberlyn Dhillon MD - Internal Care Team Information Milk Pickup Driver Medicine Leatha Vanegas M.D. - Hematology & Care Team Information Milk Pickup Driver [phone] Oncology Anel Andersen DPM - Clean In Places Operator Care Team Information Milk Pickup Driver [facility] - Care Team Information Milk Pickup Driver Resident Care Spec Felix Jay MD - Clean In Places Operator Care Team Information Milk Pickup Driver [phone] Problems Active Problems Provider Date Multiple complications [...] Aguilera Cervicovaginal cytology: Low grade squamous Kimberlyn Dhillon M.D. Onset: 02/16 intraepithelial lesion Note: HPV neg Dr. gunderson Localized superficial swelling of skin Jak Booker MD Onset: 04/21/2018 Type 1 diabetes mellitus uncontrolled Mejia Valdivia MD Onset: 03/27/2019 Mixed hyperlipidemia Meija Valdivia MD Onset: 03/27/2019 Atherosclerotic heart disease of squaxin coronary Mejia Valdivia MD Onset: 2018 artery without angina pectoris Shoulder joint pain Jak Booker MD Onset: 05/02/2019 Strain of rotator cuff capsule Jak Booker MD Onset: 05/02/2019 Social History Type Date Description Comments Sex Unknown Tobacco Use Start: Unknown Former Cigarette Smoker End: Unknown Smoking Status Reviewed: 05/02/19 Former Cigarette Smoker ETOH Use Denies alcohol [...] Booker, 04/19/2019 en every 4-6 hours as MD 5-325mg Tablets needed for pain Cephalexin take 1 by mouth 12tabs Jak Booker, 04/19/2019 500mg four times a day x MD Tablets 3 days post op Unifine Pentips to use with Lantus 100units Spencer Fabian MD 04/11/2019 31G X 6 once daily if mm Misc needed for pump failure. Nystatin 4 milliliters four 120ml Mike Ashwini, 03/01/2019 [id number]/ML times a day, swish M.D. Suspension and swallow for 10 days Medical Compression as needed Dx 1units I83.93 Kimberlyn Dhillon, 02/21/2019 Stockings/Female/15-2 i83.93 M.D. 0MMHG/Knee/MD/Long Misc Basagljaky Middletonikpen 36 units once 15ml Spencer Fabian MD [...] 4 1units E11.42 Spencer Fabian MD 10/11/2018 Day/[place]/Flash times daily with Monitoring System sensor Device Metoprolol Tartrate 1 tablet twice 60tabs Spencer Fabian MD 10/11/2018 daily 100mg Tablets Admelog in pump, max 180 30ml Spencer Fabian MD 10/11/2018 100Unit/ML units/day Solution Minimed Pump replace every 10units Spencer Fabian MD 07/08/2018 Verdon 3ML other day. dx Res 3ML e10.9 [...] Mouth Once Daily M.D. 40mg Tablets DR Osman take 1 by mouth in Unknown 600mg [...] MD 0.3mg/0.3ML Solution Auto-Inject History Medications Pen [place] to be used once 100units E10.65 Spencer [...] Code Status Date Vaccine Reaction Lot # 70461 Given 07/18/2018 Pneumococcal Conjugate no immediate reaction [id number] Vaccine 13 Valent For noted Intramuscular Use 29411 Given 05/12/2018 Influenza Virus Vaccine, No immediate reaction [id number] Quadrivalent, Split, noted. Preservative Free 93647 Given 06/14/2017 Tdap - [id number] Tetanus/Diptheria/Acellular Pertussis 87842 Given 06/01/2017 Influenza Virus Vaccine, no reaction noted [id number] Quadrivalent, Split, Preservative Free 48331 Given 04/02/2017 Pneumonia Vaccine Vital Signs Date Vital Result Comment 05/02/2019 1:42pm Height 67 inches 5'7" Weight 339.00 lb Heart Rate 93 /min Body Temperature 98.9 F Pain Level 2 BMI (Body Mass Index) 53.1 kg/m2 04/13/2019 1:04pm Height 67 inches 5'7" Weight 339.00 lb BP Systolic 124 mmHg BP Diastolic 76 mmHg Respiratory Rate 18 /min Body Temperature 97.3 F Pain Level 6 BMI (Body Mass Index) 53.1 kg/m2 Results Test Date Facility Test Result H/L Range Note Laboratory test 04/19/20 [facility] Point of Care 184 mg/dL High 70-100 1 finding [address] Glucose [place], [place] [id number] [phone] Laboratory test 04/19/20 [facility] Point of Care 138 mg/dL High 70-100 2 finding [address] Glucose [place], [place] [id number] [phone] Laboratory test 04/05/20 [facility] Hemoglobin A1c 5.8 % High 4.0-5.6 3 finding [address] (Glyco HGB) [place] [address] [phone] Laboratory test 03/27/20 [facility] Hepatitis B Jocelyne Not Immune Abnormal Immune finding [address] [place] [address] [phone] Urine 03/27/20 [facility] Ur Microalbumin < 15.0 Microalbumin [address] (mg/L) mg/[place] [address] [phone] Urine Creatinine 130.12 mg/dL Urine Microalbumin/Creatinine TNP <31 4 Lipid Profile 03/27/2019 [facility] Triglycerides 161 mg/dL 5 (Trig/Chol/HDL) [address] [place] [address] [phone] Cholesterol 203 mg/dL 6 HDL Cholesterol 39.8 mg/dL 7 LDL Cholesterol 131 mg/dL 8 Laboratory test 03/27/2019 [facility] Erythrocyte Sed 113 mm/Hr High 0-[address] [place] [address] [phone] Urinalysis 03/27/2019 [facility] Urine Color Yellow Profile [address] [place] [address] [phone] Urine Appearance Clear Urine Specific Neihart 1.014 Normal 1.010-1.030 Urine pH 6.0 Normal 5-9 Urine Urobilinogen Negative Negative Urine Ketones Negative Negative Urine Protein Negative Negative Urine Leukocytes Negative Negative Urine Blood Negative Negative Urine Nitrite Negative Negative Urine Bilirubin Negative Negative Urine Glucose Negative Negative Laboratory 03/27/2019 [facility] C Reactive Protein 25.87 mg/L High <8.01 test finding [address] [place] [address] [phone] CMV Igg/Igm 03/27/2019 [facility] Cytomegalovirus Negative Negative 9 101 [place] [address] [phone] Cytomegalovirus IgM Antibody Negative Negative Laboratory test 03/27/2019 [facility] LDH 149 U/L Normal 140- 271 finding [address] [place] [address] [phone] Comp Metabolic 03/27/2019 [facility] Sodium 137 mmol/L Normal 135-145 Panel [address] [place] [address] [phone] Potassium 4.7 mmol/L Normal 3.5-5.0 Chloride 103 [...] Non- 101.3 >60 Egfr 122.6 >60 10 CBC Auto 03/27/2019 [facility] White Blood 22.8 10^3/uL High 3.5-10.[address] [place] [address] [phone] Red Blood Count 4.36 10^6/uL Normal 3.70-4.87 [...] Red Blood Cells % 0.0 Comp Metabolic Panel 01/27/2019 [facility] Sodium 134 mmol/L Low 135-[address] [place] [address] [phone] Potassium 4.1 mmol/L Normal 3.5-5.0 Chloride 102 [...] Egfr Non- 87.4 >60 Egfr 105.8 >60 11 Co2 Carbon Dioxide 14 mmol/L Critical low 22-32 12 Anion Gap 18 mmol/L High 2-11 CBC Auto 01/27/2019 [facility] White Blood 19.4 10^3/uL High 3.5-10.[address] [place] [address] [phone] Red Blood Count 4.35 10^6/uL Normal 3.70-4.87 [...] Blood Cells % 0.0 Laboratory test 01/27/2019 [facility] C Reactive 33.01 mg/L High <8.01 [address] [place] [address] [phone] Erythrocyte Sed Rate 104 mm/Hr High 0-19 14 Urine Culture And 01/27/2019 [facility] Urine SEE RESULT [address] [place] [address] [phone] Laboratory test 01/27/2019 [facility] Blood SEE RESULT 16, [address] [address] [phone] Venous Blood Gas 01/27/2019 [facility] Venous 7.[address] Blood pH -7.4 [place] [address] 3 [phone] Venous Pco2 33 mmHg Low 41-51 Venous Po2 46.0 mmHg High 35-45 Venous O2 Saturation 80.6 % High 70-80 Venous Blood Base Excess -2.9 mmol/L Low 0.0-4.0 18 Venous Bicarbonate Hco3 22.2 mmol/L Low 24-28 Basic Metabolic 01/27/2019 [facility] Sodium 133 mmol/L Low 135-[address] [place] [address] [phone] Potassium 3.6 mmol/L Normal 3.5-5.0 Chloride 104 mmol/L Normal 101-111 Co2 Carbon Dioxide 18 mmol/L Low 22-32 Anion Gap 11 mmol/L Normal 2-11 Glucose 147 mg/dL High 70-100 Blood Urea Nitrogen 12 mg/dL Normal 6-24 Creatinine 0.62 mg/dL Normal 0.51-0.95 BUN/Creatinine Ratio 19.4 Normal 8-20 Calcium 9.7 mg/dL Normal 8.6-10.3 Egfr Non- 108.9 >60 Egfr 131.8 >60 19 Urinalysis Profile 01/27/2019 [facility] Urine Color Ciarra [address] [place] [address] [phone] Urine Appearance Cloudy Urine Specific [place]ihart 1.030 Normal 1.010-1.030 Urine pH 5.0 Normal [...] Urine Hyaline Casts Present Abnormal Absent Laboratory test 01/27/2019 [facility] Lactic Acid 1.6 mmol/L Normal 0.5-2.[address] [place] [address] [phone] CBC Auto Diff 01/27/2019 [facility] White Blood 21.1 High 3.5- 10.[address] Count 10^3/[place] [address] [phone] Red Blood Count 4.44 10^6/uL Normal 3.70-4.87 [...] Blood Cells % 0.0 Laboratory test 01/27/2019 [facility] Troponin-I (TnI) 0.00 ng/ mL <0.04 [address] [place] [address] [phone] HCG < 0.60 mIU/mL 22 Laboratory test 12/28/2018 [facility] Point of 157 mg/dL High 70-100 [address] [place] [address] [phone] CBC Auto Diff 12/28/2018 [facility] White Blood 16.7 High 3.5- 10.[address] Count 10^3/[place] [address] [phone] Red Blood Count 4.30 10^6/uL Normal 3.70-4.87 [...] % Nucleated Red Blood Cells % 0.0 Urine Drug 12/28/2018 [facility] Urine None Detected None Detect SCR ED & [address] Amphetamine [place] [address] Screen [phone] Urine Barbiturates Screen None Detected None Detect Urine Benzodiazepine Screen None Detected None Detect Urine Cannabinoids Screen Presumptive Posi <SEE NOTE> Abnormal None Detect 24 Urine Cocaine Screen None Detected None Detect Urine Opiates Screen Presumptive Posi <SEE NOTE> Abnormal None Detect 25 Urine Phencyclidine Screen None Detected None Detect 26 Laboratory test 12/28/2018 [facility] Lactic Acid 1.3 mmol/L Normal 0.5-2.0 27 finding [address] [place] [address] [phone] Acetaminophen < 15 g/mL 28 Alcohol < 10 mg/dL Normal <10 Salicylate < 2.50 mg/dL <30 Comp Metabolic 12/28/2018 [facility] Sodium 137 mmol/L Normal 135-[address] [place] [address] [phone] Potassium 4.0 mmol/L Normal 3.5-5.0 Chloride 109 [...] Egfr 118.5 >60 29 Laboratory test 12/28/2018 [facility] HCG < 0.60 mIU/ mL [address] [place] [address] [phone] TSH (Thyroid Stim Horm) 0.91 mcIU/mL Normal 0.34-5.60 Urinalysis Profile 12/28/2018 [facility] Urine Color Yellow [address] [place] [address] [phone] Urine Appearance Clear Urine Specific [place]art 1.023 Normal 1.010-1.030 Urine pH 6.0 Normal [...] Cell Present Abnormal Absent Laboratory test 12/19/2018 [facility] Point of 169 mg/dL High 70-100 [address] [place] [address] [phone] CBC Auto Diff 12/19/2018 [facility] White Blood 14.8 High 3.5- 10.[address] Count 10^3/[place] [address] [phone] Red Blood Count 4.86 10^6/uL Normal 3.70-4.87 [...] Nucleated Red Blood Cells % 0 Urine Culture And 12/19/2018 [facility] Urine Culture SEE RESULT [address] [place] [address] [phone] Urine Drug SCR ED 12/19/2018 [facility] Urine None None & [facility] [address] Amphetamine [place] [address] Screen [phone] Urine Barbiturates Screen None Detected None Detect Urine Benzodiazepine Screen None Detected None Detect Urine Cannabinoids Screen Presumptive Posi <SEE NOTE> Abnormal None Detect 33 Urine Cocaine Screen None Detected None Detect Urine Opiates Screen None Detected None Detect Urine Phencyclidine Screen None Detected None Detect 34 Comp Metabolic Panel 12/19/2018 [facility] Sodium 134 mmol/L Low 135-[address] [place] [address] [phone] Potassium 4.2 mmol/L Normal 3.5-5.0 Chloride 104 [...] Egfr Non- 87.4 >60 Egfr 105.8 >60 35 Laboratory test 12/19/2018 [facility] Acetaminophen < 15 g/mL [address] [place] [address] [phone] Alcohol < 10 mg/dL Normal <10 Salicylate < 2.50 mg/dL <30 TSH (Thyroid Stim Horm) 1.11 mcIU/mL Normal 0.34-5.60 Urinalysis Profile 12/19/2018 [facility] Urine Color Ciarra [address] [place] [address] [phone] Urine Appearance Cloudy Urine Specific [place]ihart 1.026 Normal 1.010-1.030 Urine pH 5.0 Normal [...] Urine Squamous Epithelial Cell Present Abnormal Absent Urinalysis Profile 12/18/2018 [facility] Urine Color Ciarra [address] [place] [address] [phone] Urine Appearance Cloudy Urine Specific [place]ihart 1.028 Normal 1.010-1.030 Urine pH 6.0 Normal [...] Cell Present Abnormal Absent Urine Culture And 12/18/2018 [facility] Urine SEE RESULT [address] [address] [phone] CBC Auto Diff 12/18/2018 [facility] White Blood 13.3 High 3.5- [address] Count 10^3/uL 0.8 [place] [address] [phone] Red Blood Count 4.58 10^6/uL Normal 3.70-4.87 [...] Blood Cells % 0 Basic Metabolic 12/18/2018 [facility] Sodium 135 mmol/L Normal 135-[address] [place] [address] [phone] Potassium 3.7 mmol/L Normal 3.5-5.0 Chloride 106 mmol/L Normal 101-111 Co2 Carbon Dioxide 20 mmol/L Low 22-32 Anion Gap 9 mmol/L Normal 2-11 Glucose 187 mg/dL High 70-100 Blood Urea Nitrogen 8 mg/dL Normal 6-24 Creatinine 0.66 mg/dL Normal 0.51-0.95 BUN/Creatinine Ratio 12.1 Normal 8-20 Calcium 9.4 mg/dL Normal 8.6-10.3 Egfr Non- 101.3 >60 Egfr 122.6 >60 38 Inr/Protime 12/14/2018 [facility] Inr 1.15 High 0.82-1.[address] [place] [address] [phone] Laboratory test 12/14/2018 [facility] Partial 36.8 High 26.0- 36.[address] [place] [address] Time PTT [phone] CBC Auto Diff 12/14/2018 [facility] White Blood 19.5 High 3.5- 10.[address] Count 10^3/[place] [address] [phone] Red Blood Count 4.94 10^6/uL High 3.70-4.87 [...] Blood Cells % 0 Laboratory test 12/14/2018 [facility] Lactic Acid 0.7 mmol/L Normal 0.5-2.0 [address] [place] [address] [phone] Comp Metabolic 12/14/2018 [facility] Sodium 136 mmol/L Normal 135-[address] [place] [address] [phone] Potassium 4.4 mmol/L Normal 3.5-5.0 Chloride 103 [...] Egfr 91.6 >60 41 Laboratory test 12/14/2018 [facility] Troponin-I (TnI) 0.01 ng/ mL <0.04 [address] [place], [place] [address] [phone] Lipase 10 U/L Low 11.0-82.0 C Reactive Protein 29.09 mg/L High <8.01 HCG < 0.60 mIU/mL 43 Urinalysis Profile 12/14/2018 [facility] Urine Color Ciarra [address] [place], [place] [address] [phone] Urine Appearance Cloudy Urine Specific [place]art 1.028 Normal 1.010-1.030 Urine pH 5.0 Normal [...] Cell Present Abnormal Absent Laboratory test 12/14/2018 [facility] Pathologist (SEE [address] Review NOTE) [place] [address] [phone] Urine Culture And 12/14/2018 [facility] Urine Culture SEE [address] [place] [address] BELOW [phone] Laboratory test 11/16/2018 [facility] Ferritin 168.4 Normal 11 - 46, finding [address] ng/mL 307 47 [place], [place] [address] [phone] 1 Agency Sales Director: [id number] 2 Agency Sales Director: [id number] 3 Therapeutic target for the treatment of diabetes mellitus patients is <7% HBA1C, and in selective patients <6.0%. Please refer to [place] [employer] diabetic care guidelines for further information. 4 Unable to calculate due to low microalbumin 5 Desirable: <150 Borderline High: 150-199 High: 200-499 Very High: >500 6 Desirable: <200 Borderline High: 200-239 High: >239 7 Low: <40 Desirable: 40-60 High: >60 8 Desirable: <100 Near Optimal: 100-129 Borderline High: 130-159 High: 160-189 Very High: >189 9 Test Performed by: [facility] [address] [place] [address] 10 Because ethnic data is not always [...] 5 Kidney failure <15 (or dialysis) 11 Because ethnic data is not always readily [...] 15-29 5 Kidney failure <15 (or dialysis) 12 Critical Result CO2:[address] RODRIGUEZ at: 19:28:13 by:[id number] Read back by:DR RODRIGUEZ 13 Please check labs this week 14 Please check labs this week 15 SEE RESULT BELOW Name: JAYY CANTU : [address]: Lauro Ramirez MD Acct: [id number] Unit: [id number] AGE: 38 Location: ED Re01/27/19 SEX: F Status: REG ER SPEC: [id number] [place]: 01/27/[address]: Lauro Ramirez MD REQ: [id number] RECD: 01/27/19 STATUS: JOEL GARCIA DR: Kimberlyn Dhillon MD _ SOURCE: URINE SPDESC: ORDERED: Urine Culture Procedure Result Reported Site Urine Culture Final 01/29/19- 0809 ML No growth of clinically significant organisms * ML - Main Lab . END OF REPORT DEPARTMENT OF PATHOLOGY, [address] [place] [address] Simón Uriarte M.D. Director [facility] # [id number] 16 Patient is On Antibiotics? NO 17 SEE RESULT BELOW Name: JAYY CANTU : [address]: Lauro Ramirez MD Acct: [id number] Unit: [id number] AGE: 38 Location: ED Re01/27/19 SEX: F Status: DEP ER SPEC: [id number] [place]: 01/27/19-[address] [facility] [address]: Lauro Ramirez MD REQ: [id number] RECD: 01/27/19 STATUS: JOEL GARCIA DR: Kimberlyn Dhillon MD _ SOURCE: BLOOD,VENO SPDESC: ORDERED: Blood Cult COMMENTS: Patient is On Antibiotics? NO Procedure Result Reported Site Aerobic Culture Bottle Final 02/01/19- 2300 ML No Growth Day 5 Anaerobic Culture Bottle Final 02/01/19- 2300 ML No Growth Day 5 * ML - Main Lab . END OF REPORT DEPARTMENT OF PATHOLOGY, [address] [place] [address] Simón Uriarte M.D. Director [facility] # [id number] 18 Reference ranges based on room air. 19 Because ethnic data is not always readily [...] 15-29 5 Kidney failure <15 (or dialysis) 20 [facility] Severe Sepsis and Septic Shock Management Bundle Measure requires all lactic acids initially measuring >2.0 mmol/L be repeated. 21 Troponin-I testing on Plasma Separator Tubes (PST) has a known false positive rate of 0.20-0.40%. All positive troponins reflex immediately to secondary confirmatory testing. Using the [employer] DxI 800 Access Immunoassay systems, the 99th percentile upper reference limit was demonstrated to be < 0.03 ng/mL. 22 <5.0 Negative 5.0 - 25.0 Indeterminate (Repeat testing recommended after 72 hours) >25.0 Positive Perimenopausal women can display HCG levels of up to 20 mIU/mL 23 Agency Sales Director: [id number] 24 Presumptive Positive Presumptive positive results are unconfirmed. 25 Presumptive Positive Presumptive positive results are unconfirmed. 26 The urine specimen was tested at the listed cutoffs: Drug class test level (ng/mL) Amphetamines 500 Barbiturates 200 Benzodiazepine metabolites 200 Cocaine metabolites 150 Cannabinoids 50 Opiates 300 Pcp 25 Specimen was received without chain of custody. Results should be used for medical purposes only. 27 [facility] Severe Sepsis and Septic Shock Management Bundle [...] levels of up to 20 mIU/mL 31 Agency Sales Director: [id number] 32 SEE RESULT BELOW Name: JAYY CANTU : [address]: Reggie Bergeron MD Acct: [id number] Unit: [id number] AGE: 38 Location: [facility] Re12/19/18 SEX: F Status: ADM IN SPEC: [id number] [place]: 12/19/[address] [facility] [address]: Ralph Bernal MD REQ: [id number] RECD: 12/19/18 STATUS: JOEL GARCIA DR: Kimberlyn Dhillon MD _ SOURCE: URINE SPDESC: ORDERED: Urine Culture Procedure Result Reported Site Urine Culture Final 12/20/18- 1634 ML No Growth (<1,000 CFU/mL) * ML - Main Lab . END OF REPORT DEPARTMENT OF PATHOLOGY, [address] [place] [address] Simón Uriarte M.D. Director [facility] # [id number] 33 Presumptive Positive Presumptive positive results are unconfirmed. 34 The urine specimen was tested at the listed cutoffs: Drug class test level (ng/mL) Amphetamines 500 Barbiturates 200 Benzodiazepine metabolites 200 Cocaine metabolites 150 Cannabinoids 50 Opiates 300 Pcp 25 Specimen was received without chain of custody. Results should be used for medical purposes only. 35 Because ethnic data is not always readily [...] 15-29 5 Kidney failure <15 (or dialysis) 36 Therapeutic concentration: <50 ug/mL Toxic concentration: >120 ug/mL 37 SEE RESULT BELOW Name: JAYY CANTU : [address]: Lauro Ramirez MD Acct: [id number] Unit: [id number] AGE: 38 Location: ED Re12/18/18 SEX: F Status: DEP ER SPEC: [id number] [place]: 12/18/[address] [facility] [address]: Lauro Ramirez MD REQ: [id number] RECD: 12/18/18 STATUS: JOEL GARCIA DR: Kimberlyn Dhillon MD _ SOURCE: URINE SPDESC: ORDERED: Urine Culture Procedure Result Reported Site Urine Culture Final 12/19/18- 1412 ML No Growth (<1,000 CFU/mL) * ML - Main Lab . END OF REPORT DEPARTMENT OF PATHOLOGY, [address] [place] [address] Simón Uriarte M.D. Director [facility] # [id number] 38 Because ethnic data is not always [...] High intensity warfarin therapeutic range: 2.5-3.[address] [facility] Severe Sepsis and Septic Shock Management Bundle [...] immediately to secondary confirmatory testing. Using the [employer] DxI 800 Access Immunoassay systems, the 99th [...] Uriarte 45 SEE RESULT BELOW Name: JAYY CANTU : [address]: Lauro Ramirez MD Acct: [id number] Unit: [id number] AGE: 38 Location: ED Re12/14/18 SEX: F Status: DEP ER SPEC: [id number] [place]: 12/14/[address] [facility] [address]: Gene Gonzalez MD REQ: [id number] RECD: 12/14/18 STATUS: COMP OTHR DR: Kimberlyn Dhillon MD _ SOURCE: URINE SPDESC: ORDERED: Urine Culture Urine Source: Clean Catch Procedure Result Reported Site Urine Culture Final 12/15/18- 1601 ML No Growth (<1,000 CFU/mL) * ML - Main Lab . END OF REPORT DEPARTMENT OF PATHOLOGY, [address] [place] [address] Simón Uriarte M.D. Director [facility] # [id number] 46 FASTING 47 FASTING Procedures Date Code Description Status 04/19/2019 02131 Arthroscopy Shoulder,W/Rotator Cuff Repair Completed 04/19/2019 49050 Arthroscopy,Shoulder Decompression Of Subacromial Completed Space W/Acromio 04/06/2019 77070 Treadmill Interp/Report Only Completed 04/06/2019 99389 Stress Test Supervsn W/Out I/R Completed 03/27/2019 29206 EKG Tracing & Interpretation Completed 02/10/2019 78269 Inject/Drain Joint/Bursa Major W/O US Completed 12/13/2018 34946 Polysomnography Sleep Staging 4+ Parameters Completed 11/10/2018 10643 Inject/Drain Joint/Bursa Major W/O US Completed 12/24/2016 450112444 Diabetic Retinal Eye Exam Completed Medical Devices Description No Information Available Encounters Type Date Location Provider Dx Diagnosis Office Visit 04/20/2019 [facility] G47.33 Obstructive sleep 1:50p [facility] apnea (adult) [facility] [place] (pediatric) Office Visit 04/19/2019 [facility] G47.33 Obstructive sleep 1:49p [place] apnea (adult) [facility] [place] (pediatric) E11.9 Type 2 diabetes mellitus without complications Z79.4 MCC (current) use of insulin F41.9 Anxiety disorder, unspecified Office Visit 03/29/2019 [facility] Jenny G47.33 Obstructive sleep 1:30p [facility] [place] apnea (adult) [facility] (pediatric) E66.9 Obesity, unspecified Z68.43 Body mass index (BMI) 50.0-59.9, adult Office Visit 03/27/2019 1:20p [facility] Internal Mejia Valdivia, Z01.818 Encounter for other Medicine - preprocedural Suite R examination M25.811 Other specified joint disorders, right shoulder I25.10 Athscl heart disease of squaxin coronary artery w/o ang pctrs E78.2 Mixed hyperlipidemia Z68.43 Body mass index (BMI) 50.0-59.9, adult E66.01 Morbid (severe) obesity due to excess calories E10.65 Type 1 diabetes mellitus with hyperglycemia R94.31 Abnormal electrocardiogram [ECG] [EKG] Office Visit 03/09/2019 3:15p Orthopedic Jak Booker M75.41 Impingement Services Of Vin CAMARENA syndrome of right shoulder Office Visit 03/01/2019 4:00p Rheumatology Mike L95.9 Vasculitis Services Of Amberly Maradiaga M.D. limited to the skin, unspecified Z79.899 Other long-term (current) drug therapy R19.7 Diarrhea, unspecified B37.0 Candidal stomatitis D72.829 Elevated white blood cell count, unspecified Office Visit 02/21/2019 2:00p [facility] Internal Kimberlyn G47.33 Obstructive sleep Medicine - [...] CAMARENA syndrome of right shoulder Office 01/02/2019 [facility] [place] [facility] Franc[facility]ka E10.65 Type 1 diabetes Visit 4:30p Endocrinology of [facility] Marker, RPA-C mellitus with hyperglycemia Office 12/19/2018 [facility] Jenny G47.33 Obstructive sleep Visit 2:30p Services Of [facility] GEM Winston apnea (adult) (pediatric) G47.00 Insomnia, unspecified E66.01 Morbid (severe) obesity due to excess calories G25.81 Restless legs syndrome F43.10 Post-traumatic stress disorder, unspecified Z72.821 Inadequate sleep hygiene Z68.42 Body mass index (BMI) 45.0-49.9, adult Office Visit 12/12/2018 3:40p Rheumatology Mike L95.9 Vasculitis Services Of Amberly Maradiaga M.D. limited to the skin, unspecified Z79.899 Other watermelon inspector (current) drug therapy G62.9 Polyneuropathy, unspecified G25.81 Restless legs syndrome Office Visit 11/16/2018 1:30p Pulmonology And Meaghan G47.9 Sleep disorder, Sleep Services Of MD Radha unspecified Amberly R53.83 Other fatigue G25.81 Restless legs syndrome E66.9 Obesity, unspecified Z68.43 Body mass index (BMI) 50.0-59.9, adult Office Visit 11/11/2018 Peng Rosa, G43.719 Chronic migraine 2:00p Neurologic M.DStefania w/o aura, Services Of Amberly intractable, w/o stat migr Office Visit 11/10/2018 Orthopedic Obdulia Christy.41 Impingement 2:45p Services Of syndrome of right [...] right shoulder Jak Booker MD 04/19/2019 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 03/01/2019 R19.7 Diarrhea, unspecified Mike [...] Mike Maradiaga M.D. unspecified 12/12/2018 Z79.899 Other long-term (current) drug therapy Mike Maradiaga M.D. 12/12/2018 [...] - Jak Booker MD at [facility]05/04/2019 11:50 am - Kimberlyn Dhillon M.D. at [facility] Internal Medicine - [facility]05/10/2019 2:30 pm - Jenny Winston NP at Pulmonology And Sleep Services Of [facility]05/03/2019 3:20 pm - Mike Maradiaga M.D. at Rheumatology Services Of [facility]08/02/2019 11:00 am - Jillian Rosa M.D. at [facility]005/02/2019 - Jak Booker, MDM25.512 Pain in left shoulderNew Xrays:MRI Shoulder Left W/O, Ordered: 05/02/19Shoulder Left 2+ VWS, Ordered: Follow up:Follow up: 4 [id number] Strain of muscle(s) and tendon(s) of the rotator cuff of right shoulder, initial encounter Functional Status Description No Information Available Mental Status Description No Information Available Referrals Refer to Dr Reason for Referral Status Appt Date Brett Kelley, DO, FACC surgical clearance, intermittent chest Sent 00/00 /0000 pain. ordering stress test [facility] [id number] [phone]
[2019-05-23] MEDS ORDERED: Ibuprofen TAB* 600 MG PO ONE (08:03)
--- NOTE | 2019-05-23 09:44 | ED ---
Neck Pain - HPI Summary HPI Summary: This patient is a 38-year-old morbidly obese female presenting to the ED after a fall last night. Patient states her knee typically gives out on her and she fell landing on her right knee. She is endorsing an abrasion to his right knee , however denies any limitations with flexion and extension of range of motion. She states on the fall, she hit her head on the nightstand and is now endorsing neck pain. She has full range of motion and symptoms are worse with movement of the neck. She states she was able to go back to sleep last night, however when she woke up this morning and still had neck pain she decided to come to the ED. She denies any posterior cervical spine tenderness. She is endorsing pain to the bilateral sides of the neck. Again patient is able to flex and extend, and rotate about the neck. She states pain is currently rated at 10/and she is requesting pain medications on arrival. - History of Current Complaint Chief Complaint: EDFall Stated Complaint: NECK PAIN PER EMS Time Seen by Provider: 05/23/19 06:46 Hx Obtained From: Patient Hx Last Menstrual Period: 3 weeks ago Onset/Duration Of Injury/Symptoms: Hours Timing: Constant Onset/Duration: Sudden Onset Severity Initially: Severe Severity Currently: Severe Pain Intensity: 10 Pain Scale Used: 0-10 Numeric Location: Discrete At: - sides of the neck Aggravating Factors: Nothing Alleviating Factors: Nothing Associated Signs & Symptoms: Positive: Negative - Risk Factors Meningitis Risk Factors: Negative - Allergies/Home Medications Allergies/Adverse Reactions: Allergies Allergy/AdvReac Type Severity Reaction Status Date / Time Adhesive Tape Allergy Severe Rash Verified 05/09/19 09:07 asenapine Allergy Severe Rash Verified 05/09/19 09:07 bee venom protein (honey bee) Allergy Severe Anaphylatic Verified 05/09/19 09:07 Shock lurasidone [From Latuda] Allergy Severe Vomiting Verified 05/09/19 09:07 metoclopramide [From Reglan] Allergy Severe Abdominal Verified 05/09/19 09:07 Pain paclitaxel [From Taxol] Allergy Severe Rash Verified 05/09/19 09:07 Sulfa (Sulfonamide Allergy Severe Rash Verified 05/09/19 09:07 Antibiotics) sulfamethoxazole Allergy Severe Rash Verified 05/09/19 09:07 [From Bactrim] trimethoprim [From Bactrim] Allergy Severe Hives Verified 05/09/19 09:07 nalbuphine [From Nubain] AdvReac Severe Rash Verified 05/09/19 09:07 paroxetine [From Paxil] AdvReac Severe Vomiting Verified 05/09/19 09:07 tramadol AdvReac Severe Rash Verified 05/09/19 09:07 "metal" Allergy Severe Swelling Uncoded 05/09/19 09:07 zepeda Allergy Severe Nausea And Uncoded 05/09/19 09:07 Vomiting PMH/Surg Hx/FS Hx/Imm Hx Previously Healthy: Yes Endocrine/Hematology History: Reports: Hx Diabetes, Hx Anemia Denies: Hx Thyroid Disease, Other Endocrine/Hematological Disorders Cardiovascular History: Reports: Hx Angina, Hx Hypercholesterolemia, Hx Hypertension, Other Cardiovascular Problems/Disorders - vasculitis. tachycardia Denies: Hx Coronary Artery Disease, Hx Myocardial Infarction, Hx Pacemaker/ ICD, Hx Peripheral Vascular Disease, Hx Valvular Heart Disease Respiratory History: Reports: Hx Asthma, Hx Sleep Apnea Denies: Hx Chronic Obstructive Pulmonary Disease (COPD), Other Respiratory Problems/Disorders GI History: Reports: Hx Crohn's Disease, Hx Gastroesophageal Reflux Disease, Hx Irritable Bowel, Other GI Disorders - gastroparesis Denies: Hx Ulcer History: Denies: Hx Dialysis, Hx Renal Disease, Other Problems/Disorders Musculoskeletal History: Reports: Hx Arthritis - back and knees, Other Musculoskeletal History - Ulnar nerve compression Right arm Denies: Hx Osteoporosis Sensory History: Reports: Hx Contacts or Glasses Denies: Hx Legally Blind, Hx Deafness, Hx Hearing Aid Opthamlomology History: Reports: Hx Contacts or Glasses Denies: Hx Legally Blind Neurological History: Reports: Hx Headaches, Hx Migraine, Hx Nerve Disease - diabetic neuropathy Denies: Hx Seizures, Hx Transient Ischemic Attacks (TIA), Other Neuro Impairments/Disorders Psychiatric History: Reports: Hx Anxiety, Hx Depression, Hx Panic Disorder - PTSD, Hx Post Traumatic Stress Disorder, Hx Inpatient Treatment, Hx Community Mental Health Tx, Hx Bipolar Disorder, Hx Suicide Attempt, Other Psychiatric Issues/Disorders - Borderline Personality Disorder Denies: Hx Attention Deficit Hyperactivity Disorder, Hx Eating Disorder, Hx Schizophrenia, Hx of Violent Episodes Against Others - Cancer History Hx Chemotherapy: No - Surgical History Surgery Procedure, Year, and Place: Cholecystectomy [facility]. Cardiac Catherterization-NO STENT [place] in [place] 2005, 2017 [facility] [place] [facility],. ulnar nerve release 2018, [facility]. 04/19/19 - RT SHOULDER - ( NO EXTERNAL METAL) Hx Anesthesia Reactions: No - Immunization History Date of Tetanus Vaccine: utd Date of Influenza Vaccine: fall 2016 Hx Pertussis Vaccination: No Immunizations Up to Date: Yes Infectious Disease History: No Infectious Disease History: Reports: Hx of Known/Suspected MRSA Denies: Hx Hepatitis, Hx Human Immunodeficiency Virus (HIV), Traveled Outside the [place] in Last 30 Days - Family History Known Family History: Positive: Cardiac Disease, Diabetes, Other - blod clots Negative: Hypertension - Social History Occupation: Unemployed Lives: With Family Alcohol Use: None Alcohol Amount: none today Hx Substance Use: Yes Substance Use Type: Reports: Marijuana Substance Use Comment - Amount & Last Used: medical marijuana Hx Tobacco Use: Yes Smoking Status (MU): Never Smoked Tobacco Type: Cigarettes Amount Used/How Often: 2 cigarettes/day Length of Time of Smoking/Using Tobacco: 4 CIG/DAY 2 YEARS Have You Smoked in the Last Year: Yes Review of Systems Negative: Fever, Chills, Fatigue, Skin Diaphoresis Negative: Palpitations, Chest Pain Negative: Shortness Of Breath, Cough Genitourinary: Negative Positive: no symptoms reported, see HPI Positive: Arthralgia - diffuse at baseline and neck pain, Myalgia Negative: Rash, Bruising Negative: Headache, Weakness, Paresthesia, Numbness All Other Systems Reviewed And Are Negative: Yes Physical Exam Triage Information Reviewed: Yes Vital Signs On Initial Exam: Initial Vitals Temp Pulse Resp BP Pulse Ox 97.0 F 114 18 160/115 99 05/23/19 06:46 05/23/19 06:46 05/23/19 06:46 05/23/19 06:46 05/23/19 06:46 Vital Signs Reviewed: Yes Appearance: Positive: Well-Appearing, Well-Nourished, Obese Skin: Positive: Warm, Skin Color Reflects Adequate Perfusion Head/Face: Positive: Normal Head/Face Inspection Eyes: Positive: EOMI, RICO, Conjunctiva Clear Neck: Positive: Supple, Other: - tenderness to the bilateral sides of the neck Respiratory/Lung Sounds: Positive: Breath Sounds Present Cardiovascular: Positive: RRR, Pulses are Symmetrical in both Upper and Lower Extremities Musculoskeletal: Positive: Pain @ - bilateral neck pain Neurological: Positive: Speech Normal Psychiatric: Positive: Affect/Mood Appropriate Diagnostics - Vital Signs Vital Signs Temp Pulse Resp BP Pulse Ox 05/23/19 09:00 109 96 05/23/19 08:49 110 115/83 95 05/23/19 08:19 104 125/93 96 05/23/19 08:00 117 97 05/23/19 07:49 107 131/91 95 05/23/19 07:19 104 123/89 97 05/23/19 07:00 107 96 05/23/19 06:49 110 145/107 97 05/23/19 06:46 97.0 F 114 18 160/115 99 - Laboratory Lab Statement: Any lab studies that have been ordered have been reviewed, and results considered in the medical decision making process. Neck Course/Dx - Course Course Of Treatment: During his course of treatment, the patient is evaluated for bilateral neck pain. Denies any pain to the posterior cervical spine. Patient states pain is rated at 10/10. She is given ibuprofen with good relief. She is given he packs in the ED. She does not have any posterior cervical spine tenderness and is able to provide range of motion in flexion and extension without discomfort, a CT was not obtained at this time. Full range of motion to the bilateral upper extremities without limitations. Lungs CTA, RRR. Patient is morbidly obese and likely the cause of her frequent weakness to her knees. She will follow-up with her PCP regarding her falls. - Diagnoses Differential Dx/HQI/PQRI: Positive: Sprain, Strain, Torticollis Provider Diagnoses: Neck pain Discharge ED - Sign-Out/Discharge Documenting (check all that apply): Patient Departure Patient Received Moderate/Deep Sedation with Procedure: No - Discharge Plan Condition: Stable Disposition: HOME Patient Education Materials: Neck Pain (ED) Referrals: Kimberlyn Dhillon MD [Primary Care Provider] - Additional Instructions: Ibuprofen 600mg three times daily Moist heat to the area Rest today - Billing Disposition and Condition Condition: STABLE Disposition: Home - Attestation Statements Provider Attestation: I was available for consultation for this patient. I did not evaluate the patient or participate in any medical decision making or disposition decisions unless I am specifically named in the chart as having consulted on the patient. If I have consulted on the patient, please see my own ED note on the patient encounter. Heath Barber MD
[2019-05-23 10:08] VITALS: BP 132/94
== END 2019-05-23 10:08 | disposition home or self-care (01) ==
LOC: ED 06:43
DX: M54.2 Cervicalgia (principal); S80.211A Abrasion, right knee, initial encounter; W19.XXXA Unspecified fall, initial encounter; Y92.9 Unspecified place or not applicable; E11.9 Type 2 diabetes mellitus without complications; I10 Essential (primary) hypertension; Z88.1 Allergy status to other antibiotic agents; Z91.030 Bee allergy status; Z88.5 Allergy status to narcotic agent; Z88.2 Allergy status to sulfonamides; Z88.8 Allergy status to other drugs, medicaments and biological substances; Z91.018 Allergy to other foods; F17.210 Nicotine dependence, cigarettes, uncomplicated
CPT/HCPCS: 99283; A9270-GY

== ENCOUNTER 2019-06-25 09:37 | Emergency (ER) | payer OTHER ==
--- OUTSIDE RECORDS SUMMARY | 2019-06-25 09:43 | XMS REPORT | Continuity of Care Document ---
:1980 External Reference #:[id number] Author Name Kimberlyn Dhillon M.D. (transmitted by agent of provider Eva Griffin) Address [address], [place] [address] Care Team Providers Name Role Phone Mike Maradiaga MD - Rheumatology Care Team Information It Risk And Assurance Senior Manager Patel Bhat MD - Gastroenterology Care Team Information It Risk And Assurance Senior Manager Abad Dempsey MD - Dermatology Care Team Information It Risk And Assurance Senior Manager [facility] - Gynecology Care Team Information It Risk And Assurance Senior Manager Vinnie Gunderson MD - Obstetrics & Care Team Information It Risk And Assurance Senior Manager [phone] Gynecology Kimberlyn Dhillon MD - Internal Care Team Information It Risk And Assurance Senior Manager Medicine Leatha Vanegas M.D. 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 Nystatin 4 milliliters four 120ml Mike Ashwini, 03/01/2019 [id number]/ML times a day, swish M.D. Suspension and swallow for 10 days Medical Compression as needed Dx 1units I83.93 Kimberlyn Dhillon, 02/21/2019 Stockings/Female/15-2 i83.93 M.D. 0MMHG/Knee//Keegan Misc Basaglar Kwikpen 36 units once 15ml Spencer Fabian MD 01/05/2019 daily in case of 100Unit/ML Solution pump failure. 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 dx Res 3ML e10.9 Misc Infusion Set 23" 9mm change infusion 10units E10.65 Spencer Fabian MD 2017 Tubing set as directed. 23" Misc Colace [...] 12/29 Mouth Every M.D. 80mg Tablets Evening Imodium A-D 1 by mouth twice a 60caps K31.84 12/02/2016 2mg day prn Cotton M.D. Capsules Cellcept 2 tabs by mouth 180tabs L95.8 Mike Maradiaga, 12/02/2016 500mg Tablets twice a day M.D. Bentyl 1 by mouth twice a 60caps K31.84 Kimberlyn Dhillon, 12/02/2016 10mg Capsules day M.D. Acetaminophen-Codeine 1 tab by mouth Unknown #3 every 4-6 hours as 300-30mg Tablets needed for pain Butalbital-Acetaminop 1 tab by mouth 30tabs Kimberlyn Dhillon, hen every 8 hours as M.D. 50-325mg Tablets needed for severe headahces, no not take on days when using mapap Diclofenac Potassium tid prn Unknown 50mg Tablets Medical Marijuana Dr. De La Cruz Unknown Gabapentin take 1 by mouth in Unknown 600mg the am, and 2 Tablets tablets in the evening Pantoprazole Sodium Take One Tablet By 30tabs Kimberlyn Dhillon, Mouth Once Daily M.D. 40mg Tablets Mirtazapine 1 tab by mouth at Unknown 15mg bedtime Tablets Dispers Duloxetine HCL 1 by mouth every Unknown 60mg day Caps DR Coughlin Systane apply twice daily Unknown 0.4-0.3% as needed for dry Solution eyes Duloxetine HCL 1 by mouth every Unknown 20mg day Caps DR Coughlin Artificial Tears drops to eyes prn Unknown Solution Cetirizine HCL 1 by mouth every Unknown 10mg day prn Tablets Zolpidem Tartrate 1 tab by mouth Unknown [...] HFA 2 puffs by mouth 18gm Kimberlyn Dhillon, every 6 hours as M.D. 108(90Base) mcg/Act needed Aerosol Tums 1 by mouth 3 Unknown 500mg Chewtabs times a day as needed, may keep in her room Epipen 2-Amos use as directed 2units Deidra Godinez MD 0.3mg/0.3ML Solution Auto-Inject History Medications Oxycodone-Acetaminophen 1 tabs by 18tabs Jak Booker, 04/19/2019 - 5-325mg Tablets mouth every MD 04/30/2019 4-6 hours as needed for pain Cephalexin take 1 by 12tabs Jak Booker, 04/19/2019 - 500mg Tablets mouth four MD 04/25/2019 times a day x 3 days post op Pen [place] to be used 100units E10.65 Palmer Coch, 04/07/2019 - 32G X 6 mm Misc once per day 04/10/2019 with Lantus in case of pump failure . BD Pen use 4 times 100units Palmerkory Fabian, 04/05/2019 - Needle/Micro/Ultra-Fine/32G X daily with 04/10/2019 6mm 32G X insulin 6 mm Misc injections, when pump fails Lantus Solostar inject 36 3ml E11.65 Palmer Rui, 01/02/2019 - 100Unit/ML Solution units once 01/04/2019 Pen-Inject daily in case of pump failure. Medications Administered in Office Medication SIG Qnty Indications Ordering Provider Date Triamcinolone (Kenalog) Jak Booker MD 02/10/2019 Injection Triamcinolone (Kenalog) Jak Booker MD 11/10/2018 Injection Triamcinolone (Kenalog) Jak Booker MD 04/21/2018 Injection Triamcinolone (Kenalog) Jak Booker MD 01/11/2018 Injection Triamcinolone (Kenalog) Jak Booker MD 10/14/2017 Injection Triamcinolone (Kenalog) Jak Booker MD 05/07/2017 Injection Immunizations CPT Code Status Date Vaccine Reaction Lot # 80198 Given 06/01/2019 Hepatitis B Vaccine Adult [id number] Dosage 55517 Given 07/18/2018 Pneumococcal Conjugate no immediate reaction [id number] Vaccine 13 Valent For noted Intramuscular Use 05212 Given 05/12/2018 Influenza Virus Vaccine, No immediate reaction [id number] Quadrivalent, Split, noted. Preservative Free 88780 Given 06/14/2017 Tdap - [id number] Tetanus/Diptheria/Acellular Pertussis 83670 Given 06/01/2017 Influenza Virus Vaccine, no reaction noted [id number] Quadrivalent, Split, Preservative Free 66160 Given 04/02/2017 Pneumonia Vaccine Vital Signs Date Vital Result Comment 06/01/2019 12:00pm Height 67 inches 5'7" Weight 344.00 lb Heart Rate 107 /min BP Systolic Sitting 124 mmHg BP Diastolic Sitting 89 mmHg O2 % BldC Oximetry 96 % BMI (Body Mass Index) 53.9 kg/m2 05/30/2019 2:05pm Height 67 inches 5'7" Weight 334.00 lb Heart Rate 108 /min Body Temperature 97.7 F Pain Level 5 BMI (Body Mass Index) 52.3 kg/m2 Results Test Date Facility Test Result H/L Range Note Laboratory test 04/19/20 [facility] Point of Care 184 mg/dL High 70-100 1 finding [address] Glucose [place], [place] [id number] [phone] Laboratory test 04/19/20 [facility] Point of Care 138 mg/dL High 70-100 2 finding [address] Glucose [place], [place] [address] [phone] Laboratory test 04/05/20 [facility] Hemoglobin A1c 5.8 % High 4.0-5.6 3 finding [address] (Glyco HGB) [place], [place] [id number] [phone] Laboratory test 03/27/20 [facility] Hepatitis B Jocelyne Not Immune Abnormal Immune finding [address] AB Titer [place], [place] [id number] [phone] Urine 03/27/20 [facility] Ur Microalbumin < 15.0 Microalbumin [address] (mg/L) mg/[place] [address] [phone] Urine Creatinine 130.12 mg/dL Urine Microalbumin/Creatinine TNP <31 4 Lipid Profile 03/27/2019 [facility] Triglycerides 161 mg/dL 5 (Trig/Chol/HDL) [address] [place] [address] [phone] Cholesterol 203 mg/dL 6 HDL Cholesterol 39.8 mg/dL 7 LDL Cholesterol 131 mg/dL 8 Laboratory test 03/27/2019 [facility] Erythrocyte Sed 113 mm/Hr High 0-[address] [place] [address] [phone] Urinalysis 03/27/2019 [facility] Urine Color Yellow [place] [address] [place] [address] [phone] Urine Appearance Clear Urine Specific [place] 1.014 Normal 1.010-1.030 Urine pH 6.0 Normal 5-9 Urine Urobilinogen Negative Negative Urine Ketones Negative Negative Urine Protein Negative Negative Urine Leukocytes Negative Negative Urine Blood Negative Negative Urine Nitrite Negative Negative Urine Bilirubin Negative Negative Urine Glucose Negative Negative Laboratory 03/27/2019 [facility] C Reactive Protein 25.87 mg/L High <8.[address] [place] [address] [phone] CMV Igg/Igm 03/27/2019 [facility] Cytomegalovirus Negative Negative 9 101 [place] [address] [phone] Cytomegalovirus IgM Antibody Negative Negative Laboratory test 03/27/2019 [facility] LDH 149 U/L Normal 140- [address] [place] [address] [phone] CBC Auto Diff 03/27/2019 [facility] White Blood 22.8 High 3.5- 10.[address] Count 10^3/[place] [address] [phone] Red Blood Count 4.36 10^6/uL Normal 3.70-4.87 [...] Blood Cells % 0.0 Comp Metabolic 03/27/2019 [facility] Sodium 137 mmol/L Normal 135-[address] [place] [address] [phone] Potassium 4.7 mmol/L Normal 3.5-5.0 Chloride 103 [...] Egfr 122.6 >60 10 Laboratory test 01/27/2019 [facility] Blood SEE RESULT 11, [address] [place] [address] [phone] Venous Blood 01/27/2019 [facility] Venous Blood 7.41 Normal 7.[address] pH -7.4 [place] [address] 3 [phone] Venous Pco2 33 mmHg Low 41-51 Venous Po2 46.0 mmHg High 35-45 Venous O2 Saturation 80.6 % High 70-80 Venous Blood Base Excess -2.9 mmol/L Low 0.0-4.0 13 Venous Bicarbonate Hco3 22.2 mmol/L Low 24-28 Comp Metabolic Panel 01/27/2019 [facility] Sodium 134 mmol/L Low 135-[address] [place] [address] [phone] Potassium 4.1 mmol/L Normal 3.5-5.0 Chloride 102 [...] 18 mmol/L High 2-11 CBC Auto 01/27/2019 [facility] White Blood 19.4 10^3/uL High 3.5-10.[address] [place] [address] [phone] Red Blood Count 4.35 10^6/uL Normal 3.70-4.87 [...] Blood Cells % 0.0 Basic Metabolic 01/27/2019 [facility] Sodium 133 mmol/L Low 135-[address] [place] [address] [phone] Potassium 3.6 mmol/L Normal 3.5-5.0 Chloride 104 mmol/L Normal 101-111 Co2 Carbon Dioxide 18 mmol/L Low 22-32 Anion Gap 11 mmol/L Normal 2-11 Glucose 147 mg/dL High 70-100 Blood Urea Nitrogen 12 mg/dL Normal 6-24 Creatinine 0.62 mg/dL Normal 0.51-0.95 BUN/Creatinine Ratio 19.4 Normal 8-20 Calcium 9.7 mg/dL Normal 8.6-10.3 Egfr Non- 108.9 >60 Egfr 131.8 >60 16 Laboratory test 01/27/2019 [facility] Troponin-I (TnI) 0.00 ng/ mL <0.04 [address] [place] [address] [phone] HCG < 0.60 mIU/mL 18 CBC Auto 01/27/2019 [facility] White Blood 21.1 10^3/uL High 3.5-10.[address] [place] [address] [phone] Red Blood Count 4.44 10^6/uL Normal 3.70-4.87 [...] Blood Cells % 0.0 Laboratory test 01/27/2019 [facility] Lactic Acid 1.6 mmol/L Normal 0.5-2.0 [address] [place], [place] [address] [phone] Laboratory test 01/27/2019 [facility] C Reactive 33.01 mg/L High <8.01 [address] [place] [address] [phone] Erythrocyte Sed Rate 104 mm/Hr High 0-19 21 Urine Culture And 01/27/2019 [facility] Urine Culture SEE RESULT [address] [place] [address] [phone] Urinalysis Profile 01/27/2019 [facility] Urine Color Ciarra [address] [place] [address] [phone] Urine Appearance Cloudy Urine Specific [place] 1.030 Normal 1.010-1.030 Urine pH 5.0 Normal [...] Hyaline Casts Present Abnormal Absent Laboratory 12/28/2018 [facility] Point of Care 157 mg/dL High 70-100 23 test finding [address] Glucose [place], [place] [address] [phone] Urine Drug SCR 12/28/2018 [facility] Urine None None ED & Pain [address] Amphetamine [place] [address] Screen [phone] Urine Barbiturates Screen None Detected None Detect Urine Benzodiazepine Screen None Detected None Detect Urine Cannabinoids Screen Presumptive Posi <SEE NOTE> Abnormal None Detect 24 Urine Cocaine Screen None Detected None Detect Urine Opiates Screen Presumptive Posi <SEE NOTE> Abnormal None Detect 25 Urine Phencyclidine Screen None Detected None Detect 26 CBC Auto 12/28/2018 [facility] White Blood 16.7 10^3/uL High 3.5-10.[address] [place] [address] [phone] Red Blood Count 4.30 10^6/uL Normal 3.70-4.87 [...] Blood Cells % 0.0 Laboratory test 12/28/2018 [facility] Lactic Acid 1.3 mmol/L Normal 0.5-2.0 [address] [place] [address] [phone] Acetaminophen < 15 g/mL 28 Alcohol < 10 mg/dL Normal <10 Salicylate < 2.50 mg/dL <30 Comp Metabolic 12/28/2018 [facility] Sodium 137 mmol/L Normal 135-[address] [place] [address] [phone] Potassium 4.0 mmol/L Normal 3.5-5.0 Chloride 109 [...] Egfr 118.5 >60 29 Laboratory test 12/28/2018 [facility] HCG < 0.60 mIU/ mL [address] [place] [address] [phone] TSH (Thyroid Stim Horm) 0.91 mcIU/mL Normal 0.34-5.60 Urinalysis Profile 12/28/2018 [facility] Urine Color Yellow [address] [place] [address] [phone] Urine Appearance Clear Urine Specific [place] 1.023 Normal 1.010-1.030 Urine pH 6.0 Normal [...] Cell Present Abnormal Absent Laboratory test 12/19/2018 [facility] Point of 169 mg/dL High 70-100 [address] [place] [address] [phone] CBC Auto Diff 12/19/2018 [facility] White Blood 14.8 High 3.5- 10.[address] Count 10^3/[place] [address] [phone] Red Blood Count 4.86 10^6/uL Normal 3.70-4.87 [...] Blood Cells % 0 Urine Drug 12/19/2018 [facility] Urine None Detected None Detect SCR ED & [address] [place] [address] Screen [phone] Urine Barbiturates Screen None Detected None Detect Urine Benzodiazepine Screen None Detected None Detect Urine Cannabinoids Screen Presumptive Posi <SEE NOTE> Abnormal None Detect 32 Urine Cocaine Screen None Detected None Detect Urine Opiates Screen None Detected None Detect Urine Phencyclidine Screen None Detected None Detect 33 Comp Metabolic Panel 12/19/2018 [facility] Sodium 134 mmol/L Low 135-[address] [place] [address] [phone] Potassium 4.2 mmol/L Normal 3.5-5.0 Chloride 104 [...] Egfr 105.8 >60 34 Laboratory test 12/19/2018 [facility] Acetaminophen < 15 g/mL [address] [place] [address] [phone] Alcohol < 10 mg/dL Normal <10 Salicylate < 2.50 mg/dL <30 TSH (Thyroid Stim Horm) 1.11 mcIU/mL Normal 0.34-5.60 Urinalysis Profile 12/19/2018 [facility] Urine Color Ciarra [address] [place] [address] [phone] Urine Appearance Cloudy Urine Specific [place] 1.026 Normal 1.010-1.030 Urine pH 5.0 Normal [...] Present Abnormal Absent Urine Culture And 12/19/2018 [facility] Urine Culture SEE RESULT [address] [place] [address] [phone] Urine Culture And 12/18/2018 [facility] Urine Culture SEE RESULT [address] [place] [address] [phone] Urinalysis Profile 12/18/2018 [facility] Urine Color Ciarra [address] [place] [address] [phone] Urine Appearance Cloudy Urine Specific [place] 1.028 Normal 1.010-1.030 Urine pH 6.0 Normal [...] Cell Present Abnormal Absent CBC Auto 12/18/2018 [facility] White Blood 13.3 10^3/uL High 3.5-10.[address] [place] [address] [phone] Red Blood Count 4.58 10^6/uL Normal 3.70-4.87 [...] Blood Cells % 0 Basic Metabolic 12/18/2018 [facility] Sodium 135 mmol/L Normal 135-[address] [place] [address] [phone] Potassium 3.7 mmol/L Normal 3.5-5.0 Chloride 106 mmol/L Normal 101-111 Co2 Carbon Dioxide 20 mmol/L Low 22-32 Anion Gap 9 mmol/L Normal 2-11 Glucose 187 mg/dL High 70-100 Blood Urea Nitrogen 8 mg/dL Normal 6-24 Creatinine 0.66 mg/dL Normal 0.51-0.95 BUN/Creatinine Ratio 12.1 Normal 8-20 Calcium 9.4 mg/dL Normal 8.6-10.3 Egfr Non- 101.3 >60 Egfr 122.6 >60 38 Inr/Protime 12/14/2018 [facility] Inr 1.15 High 0.82-1.[address] [place] [address] [phone] Laboratory test 12/14/2018 [facility] Partial 36.8 High 26.0- 36.[address] [place] [address] Time PTT [phone] CBC Auto Diff 12/14/2018 [facility] White Blood 19.5 High 3.5- 10.[address] Count 10^3/[place] [address] [phone] Red Blood Count 4.94 10^6/uL High 3.70-4.87 [...] Blood Cells % 0 Laboratory test 12/14/2018 [facility] Lactic Acid 0.7 mmol/L Normal 0.5-2.0 40 finding [address] [place] [address] [phone] Comp Metabolic 12/14/2018 [facility] Sodium 136 mmol/L Normal 135-[address] [place] [address] [phone] Potassium 4.4 mmol/L Normal 3.5-5.0 Chloride 103 [...] Egfr 91.6 >60 41 Laboratory test 12/14/2018 [facility] Troponin-I (TnI) 0.01 ng/ mL <0.04 [address] [place] [address] [phone] Lipase 10 U/L Low 11.0-82.0 C Reactive Protein 29.09 mg/L High <8.01 HCG < 0.60 mIU/mL 43 Urinalysis Profile 12/14/2018 [facility] Urine Color Ciarra [address] [place] [address] [phone] Urine Appearance Cloudy Urine Specific [place] 1.028 Normal 1.010-1.030 Urine pH 5.0 Normal [...] Cell Present Abnormal Absent Laboratory test 12/14/2018 [facility] Pathologist (SEE NOTE) [address] [place] [address] [phone] Urine Culture And 12/14/2018 [facility] Urine Culture SEE RESULT [address] [place] [address] [phone] 1 Director [employer]: [id number] 2 Director [employer]: [id number] 3 Therapeutic target for the treatment of diabetes mellitus patients is <7% HBA1C, and in selective patients <6.0%. Please refer to [place] [employer] diabetic care guidelines for further information. 4 Unable to calculate due to low microalbumin 5 Desirable: <150 Borderline High: 150-199 High: 200-499 Very High: >500 6 Desirable: <200 Borderline High: 200-239 High: >239 7 Low: <40 Desirable: 40-60 High: >60 8 Desirable: <100 Near Optimal: 100-129 Borderline High: 130-159 High: 160-189 Very High: >189 9 Test Performed by: [facility] [address] [place] [address] 10 Because ethnic data is not always [...] [address]: Lauro Ramirez MD Acct: [id number] Unit: [id number] AGE: 38 Location: ED Re01/27/19 SEX: F Status: DEP ER SPEC: [id number] [place]: 01/27/19 [facility] [address]: Lauro Ramirez MD REQ: [id number] RECD: 01/27/19 STATUS: JOEL GARCIA DR: Kimberlyn Dhillon MD _ SOURCE: BLOOD,VENO SPDESC: ORDERED: Blood Cult COMMENTS: Patient is On Antibiotics? NO Procedure Result Reported Site Aerobic Culture Bottle Final 02/01/19- 2300 ML No Growth Day 5 Anaerobic Culture Bottle Final 02/01/19- 2300 ML No Growth Day 5 * ML - Main Lab . END OF REPORT DEPARTMENT OF PATHOLOGY, [address] [place] [address] Simón Uriarte M.D. Director [facility] # [id number] 13 Reference ranges based on room air. [...] CO2:[address] RODRIGUEZ at: 19:28:13 by:[email or web address] Read back by:DR RODRIGUEZ 16 Because ethnic [...] immediately to secondary confirmatory testing. Using the [employer]! DxI 800 Access Immunoassay systems, the 99th percentile upper reference limit was demonstrated to be < 0.03 ng/mL. 18 <5.0 Negative 5.0 - 25.0 Indeterminate (Repeat testing recommended after 72 hours) >25.0 Positive Perimenopausal women can display HCG levels of up to 20 mIU/mL 19 [facility] Severe Sepsis and Septic Shock Management Bundle Measure requires all lactic acids initially measuring >2.0 mmol/L be repeated. 20 Please check labs this week Please check labs this week SEE RESULT BELOW Name: JAYY CANTU : [address]: Lauro Ramirez MD Acct: [id number] Unit: [id number] AGE: 38 Location: ED Re01/27/19 SEX: F Status: REG ER SPEC: [id number] [place]: 01/27/[address]: Lauro Ramirez MD REQ: [id number] RECD: 01/27/19 STATUS: JOEL GARCIA DR: Kimberlyn Dhillon MD _ SOURCE: URINE SPDESC: ORDERED: Urine Culture Procedure Result Reported Site Urine Culture Final 01/29/19- 0809 ML No growth of clinically significant organisms * ML - Main Lab . END OF REPORT DEPARTMENT OF PATHOLOGY, [address] [place] [address] Simón Uriarte M.D. Director [facility] # [id number] 23 Director [employer]: [id number] 24 Presumptive Positive Presumptive positive results are unconfirmed. 25 Presumptive Positive Presumptive positive results are unconfirmed. 26 The urine specimen was tested at the listed cutoffs: Drug class test level (ng/mL) Amphetamines 500 Barbiturates 200 Benzodiazepine metabolites 200 Cocaine metabolites 150 Cannabinoids 50 Opiates 300 Pcp 25 Specimen was received without chain of custody. Results should be used for medical purposes only. 27 [facility] Severe Sepsis and Septic Shock Management [...] levels of up to 20 mIU/mL 31 Director [employer]: [id number] 32 Presumptive Positive Presumptive positive results are [...] >120 ug/mL 36 SEE RESULT BELOW Name: PEPETUCKERA : [address]: Reggie Bergeron MD Acct: [id number] Unit: [id number] AGE: 38 Location: [place] [address] Re12/19/18 SEX: F Status: ADM IN SPEC: [id number] [place]: 12/19/18 [facility] [address]: Ralph Bernal MD REQ: [id number] RECD: 12/19/18 STATUS: COMP OTHR DR: Kimberlyn Dhillon MD _ SOURCE: URINE SPDESC: ORDERED: Urine Culture Procedure Result Reported Site Urine Culture Final 12/20/18- 1634 ML No Growth (<1,000 CFU/mL) * ML - Main Lab . END OF REPORT DEPARTMENT OF PATHOLOGY, [address] [place] [address] Simón Uriarte M.D. Director [facility] # [id number] 37 SEE RESULT BELOW Name: JAYY CANTU : [address]: Lauro Ramirez MD Acct: [id number] Unit: [id number] AGE: 38 Location: ED Re12/18/18 SEX: F Status: DEP ER SPEC: [id number] [place]: 12/18/18 [facility] [address]: Lauro Ramirez MD REQ: [id number] RECD: 12/18/18 STATUS: JOEL GARCIA DR: Kimberlyn Dhillon MD _ SOURCE: URINE SPDESC: ORDERED: Urine Culture Procedure Result Reported Site Urine Culture Final 12/19/18- 1412 ML No Growth (<1,000 CFU/mL) * ML - Main Lab . END OF REPORT DEPARTMENT OF PATHOLOGY, [address] [place] [address] Simón Uriarte M.D. Director [facility] # [id number] 38 Because ethnic data is not always [...] High intensity warfarin therapeutic range: 2.5-3.5 40 [facility] Severe Sepsis and Septic Shock Management [...] immediately to secondary confirmatory testing. Using the [employer] DxI 800 Access Immunoassay systems, the 99th [...] [address]: Lauro Ramirez MD Acct: [id number] Unit: [id number] AGE: 38 Location: ED Re12/14/18 SEX: F Status: DEP ER SPEC: [id number] [place]: 12/14/18 [facility] [address]: Gene Gonzalez MD REQ: [id number] RECD: 12/14/18 STATUS: COMP OTHR DR: Kimberlyn Dhillon MD _ SOURCE: URINE SPDESC: ORDERED: Urine Culture Urine Source: Clean Catch Procedure Result Reported Site Urine Culture Final 12/15/18- 1601 ML No Growth (<1,000 CFU/mL) * ML - Main Lab . END OF REPORT DEPARTMENT OF PATHOLOGY, [address] [place] [address] Simón Uriarte M.D. Director [facility] # [id number] Procedures Date Code Description Status 04/19/2019 97545 Arthroscopy Shoulder,W/Rotator Cuff Repair Completed 04/19/2019 26800 Arthroscopy,Shoulder Decompression Of Subacromial Completed Space W/Acromio 04/06/2019 06675 Treadmill Interp/Report Only Completed 04/06/2019 48320 Stress Test Supervsn W/Out I/R Completed 03/27/2019 38005 EKG Tracing & Interpretation Completed 02/10/2019 60182 Inject/Drain Joint/Bursa Major W/O US Completed 12/13/2018 07650 Polysomnography Sleep Staging 4+ Parameters Completed 12/24/2016 [id number] Diabetic Retinal Eye Exam Completed Medical Devices Description No Information Available Encounters Type Date Location Provider Dx Diagnosis Office Visit 06/01/2019 [facility] Internal Kimberlyn Dhillon, M25.362 Other 12:10p Medicine - Tian Go instability, left knee Z23 Encounter for immunization Office Visit 05/02/2019 2:15p [facility] Jak Booker, M25.512 Pain in left at [place] shoulder S46.011A Strain of musc/tend the rotator cuff of right shoulder, init Office Visit 04/20/2019 [facility] G47.33 Obstructive 1:50p Assoccherry M.D. sleep apnea Hospitalists (adult) (pediatric) Office Visit 04/19/2019 [facility] G47.33 Obstructive 1:49p Asscherry fountain M.D. sleep apnea Hospitalists (adult) (pediatric) E11.9 Type 2 diabetes mellitus without complications Z79.4 alf (current) use of insulin F41.9 Anxiety disorder, unspecified Office Visit 03/29/2019 [facility] G47.33 Obstructive sleep 1:30p [facility] Winston apnea (adult) [facility] (pediatric) E66.9 Obesity, unspecified Z68.43 Body mass index (BMI) 50.0-59.9, adult Office Visit 03/27/2019 1:20p [facility] Internal Mejia Valdivia, Z01.818 Encounter for other Medicine - preprocedural [address] examination M25.811 Other specified joint disorders, right shoulder 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 limited to the skin, unspecified Z79.899 Other terminal carman (current) drug therapy R19.7 Diarrhea, unspecified B37.0 Candidal stomatitis D72.829 Elevated white blood cell count, unspecified Office Visit 02/21/2019 2:00p [facility] Internal Kimberlyn G47.33 Obstructive sleep Medicine - Donavan Dhillon apnea (adult) [facility] (pediatric) E78.2 Mixed hyperlipidemia J45.40 Moderate persistent asthma, uncomplicated E10.65 Type 1 diabetes mellitus with hyperglycemia I73.9 Peripheral vascular disease, unspecified I83.93 Asymptomatic varicose veins of bilateral lower extremities Office 02/15/2019 [facility] G43.719 Chronic migraine Visit 11:00a Clinic Donavan Rosa w/o aura, intractable, w/o stat migr Office 02/10/2019 [facility] at Jak Booker, M75.41 Impingement Visit 11:30a Roxane CAMARENA syndrome of right shoulder Office 01/02/2019 [facility] Francheska E10.65 Type 1 diabetes Visit 4:30p Endocrin[facility] Marker, RPA-C mellitus with hyperglycemia Office 12/19/2018 [facility] Jenny G47.33 Obstructive sleep Visit 2:30p [facility] GEM Winston apnea (adult) (pediatric) G47.00 Insomnia, unspecified E66.01 Morbid (severe) obesity due to excess calories G25.81 Restless legs syndrome F43.10 Post-traumatic stress disorder, unspecified Z72.821 Inadequate sleep hygiene Z68.42 Body mass index (BMI) 45.0-49.9, adult Office Visit 12/12/2018 3:40p Rheumatology Mike L95.9 [facility] Amberly Maradiaga M.D. limited to the skin, unspecified Z79.899 Other retirement (current) drug therapy G62.9 Polyneuropathy, unspecified G25.81 Restless legs syndrome Assessments Date Code Description Provider 06/01/2019 M25.362 Other instability, left knee Kimberlyn Dhillon M.D. 06/01/2019 Z23 Encounter for immunization Kimberlyn Dhillon M.D. 05/30/2019 S46.011D Strain of muscle(s) and tendon(s) of the Jak Booker MD rotator cuff of right shoulder, subsequent encounter 05/09/2019 S46.011D Strain of muscle(s) and tendon(s) of the Jak Booker MD rotator cuff of right shoulder, subsequent encounter 05/09/2019 M25.512 Pain in left shoulder Jak Booker MD 05/02/2019 M25.512 Pain in left shoulder Jak Booker MD 05/02/2019 S46.011A Strain of muscle(s) and tendon(s) of the Jak Booker MD rotator cuff of right shoulder, initial encounter 04/20/2019 Z98.890 Other specified postprocedural states SCOTT Joe 04/20/2019 G47.33 Obstructive sleep apnea (adult) Ed Hylton M.D. (pediatric) 04/19/2019 G47.33 Obstructive sleep apnea (adult) Ed Hylton M.D. (pediatric) 04/19/2019 E11.9 Type 2 diabetes mellitus without Ed Hylton M.D. complications 04/19/2019 M75.41 Impingement syndrome of right shoulder Jak Booker MD 04/19/2019 Z79.4 alf (current) use of insulin Ed Hylton M.D. 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 unspecified 03/01/2019 Z79.899 Other terminal carman (current) drug therapy Mike Maradiaga M.D. 03/01/2019 R19.7 Diarrhea, unspecified Mike Maradiaga M.D. 03/01/2019 B37.0 Candidal stomatitis Mike Maradiaga M.D. 03/01/2019 D72.829 Elevated white blood cell count, Mike Mraadiaga M.D. unspecified 02/21/2019 G47.33 Obstructive sleep apnea [...] Mike Maradiaga M.D. unspecified 12/12/2018 Z79.899 Other terminal carman (current) drug therapy Mike Maradiaga M.D. 12/12/2018 G62.9 Polyneuropathy, unspecified Mike Maradiaga M.D. 12/12/2018 G25.81 Restless legs syndrome Mike Maradiaga M.D. Plan of Treatment Future Appointment(s):12/01/2019 1:00 pm - Nurse Visit A at [facility] Internal Medicine - [facility]07/03/2019 1:00 pm - Nurse Visit A at [facility] Internal Medicine - [facility]06/13/2019 1:45 pm - Jak Booker MD at [facility] at [id number] 2:30 pm - Jenny Winston NP at [facility]08/02/2019 11:00 am - Jillian Rosa M.D. at [facility] [id number] - Spencer Fabian MDE11.42 Type 2 diabetes mellitus with diabetic polyneuropathyNew Medication:Freestyle Caridad 14 Day/[place]/Flash Monitoring System - use at least 4 times daily with sensorFreestyle Caridad 14 Day/Sensor/ Flash Monitoring System - place one sensor every 10-14 daysFollow up:3 monthsInstructions:1. We will send a prescription for Freestyle Caridad. 2. Increase metoprolol to 100mg twice daily. 3. 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 ordering stress test [address] [place] [address] [phone]
--- OUTSIDE RECORDS SUMMARY | 2019-06-25 09:43 | XMS REPORT | Continuity of Care Document ---
:1980 External Reference #:[id number] Author Name Abhishek Mccarthy MD Address [address] [place] [address] Care Team Providers Name Role Phone Ashwini Go, Mike Care Team Information [facility] [phone] Kimberlyn Dhillon M.D. - Internal Care Team Information [facility] [phone] Medicine Problems Active Problems Provider Date Essential hypertension Mike Sims M.D. Onset: 01/25/2018 Social History Type Date Description Comments Sex Unknown Tobacco Use Start: Unknown Current Cigarette Smoker 1-5 Cigarettes Daily Tobacco Use Start: Unknown Never Smoked Cigars Tobacco Use Start: Unknown Never Smoked A Pipe Smokeless Tobacco Never Used Smokeless Tobacco ETOH Use Never consumed alcohol Tobacco Use Start: Unknown Patient is a current smoker, smokes every day Smoking Status Reviewed: 01/25/18 Patient is a current smoker, smokes every day Allergies, Adverse Reactions, Alerts Active Allergies Reaction Severity Comments Date Asenapine Maleate 01/25/2018 Paxil 01/25/2018 Reglan 01/25/2018 Adhesives 01/25/2018 Bactrim 01/25/2018 Nalbuphine 01/25/2018 sulfa 01/25/2018 Tramadol 01/25/2018 Lurasidone 01/25/2018 Metals 06/15/2019 Medications Active Medications SIG Qnty Indications Ordering Provider Date Butalbital-Acetaminophe as directed Unknown n 50-325mg Tablets Topiramate as directed Unknown 25mg Tablets Cetirizine HCL as directed Unknown 10mg Tablets Prazosin HCL as directed Unknown 2mg Capsules Spironolactone as directed Unknown 50mg Tablets Viibryd as directed Unknown 20mg Tablets Loperamide HCL as directed Unknown 2mg Capsules Dapsone as directed Unknown 25mg Tablets Acetaminophen-Codeine Unknown #3 300-30mg Tablets Januvia as directed Unknown 50mg Tablets Atorvastatin Calcium as directed Unknown 80mg Tablets Zolpidem Tartrate as directed Unknown 10mg Tablets Dicyclomine HCL 1 tab twice daily Unknown 10mg Capsules Pantoprazole Sodium 1 tab daily Unknown 40mg Tablets DR Ondansetron as directed Unknown 4mg Tablets Dispers Humalog as directed Unknown 100Unit/ML Solution Mycophenolate Mofetil as directed Unknown 500mg Tablets Gabapentin as directed Unknown 300mg Capsules Epipen 2-Amos Unknown 0.3mg/0.3ML Solution Auto-Inject Naproxen Unknown 500mg Tablets Immunizations Description No Information Available Vital Signs Date Vital Result Comment 06/15/2019 1:44pm Weight 335.00 lb Weight 151.956 kg Height 67 inches 5'7" Height in cm's 170.2 cm BMI (Body Mass Index) 52.5 kg/m2 01/25/2018 3:00pm Weight 342.00 lb Weight 155.131 kg Height 67 inches 5'7" Height in cm's 170.2 cm BMI (Body Mass Index) 53.6 kg/m2 Results Description No Information Available Procedures Description No Information Available Medical Devices Description No Information Available Encounters Type Date Location Provider Dx Diagnosis Office Visit 06/15/2019 [place] Abhishek Mccarthy M95.0 Acquired deformity 2:15p 08/23/07 of nose J31.0 Chronic rhinitis Assessments Date Code Description Provider 06/15/2019 M95.0 Acquired deformity of nose Abhishek Mccarthy MD 06/15/2019 J31.0 Chronic rhinitis Abhishek Mccarthy MD 05/29/2019 J34.89 Other specified disorders of nose and Mike Sims M.D. nasal sinuses 05/23/2019 J30.5 Allergic rhinitis due to food Mike Sims M.D. 05/23/2019 J34.89 Other specified disorders of nose and Mike Sims M.D. nasal sinuses 05/23/2019 J34.81 Nasal mucositis (ulcerative) Mike Sims M.D. 03/20/2019 J34.89 Other specified disorders of nose and Mike Sims M.D. nasal sinuses 03/06/2019 J34.89 Other specified disorders of nose and Mike Sims M.D. nasal sinuses 03/06/2019 J34.81 Nasal mucositis (ulcerative) Mike Sims M.D. 02/14/2019 J34.89 Other specified disorders of nose and Mike Sims M.D. nasal sinuses 02/14/2019 J34.81 Nasal mucositis (ulcerative) Mike Sims M.D. Plan of Treatment 05/29/2019 - Mike Sims M.D.J34.89 Other specified disorders of nose and nasal sinusesComments:The patient has been having chronic nasal and sinus problems. She is diabetic and she smokes. On examination she has a big anterior septal perforation with crusting and purulence.This is a difficultyproblem to fix. She denies trauma or cocaine abuse.She reports she has a vasculitis and see Dr. Maradiaga for this. This could be related to her vasculitis. She should never use an intranasal corticosteroid. She can continue with the antihistamines. Contributing to her problems is her smoking. This is an allergen and a irritant. As long as she smoke she will continue with these problems. She may need a sinus CT in the future. I will see how she responds to treatment. Functional Status Description No Information Available Mental Status Description No Information Available Referrals Description No Information Available
--- OUTSIDE RECORDS SUMMARY | 2019-06-25 09:43 | XMS REPORT | Continuity of Care Document ---
:1980 External Reference #:[id number] Author Name Jak Booker MD (transmitted by agent of provider Kiki Nguyen) Address [address], [place] [address] Care Team Providers Name Role Phone Mike Maradiaga MD - Rheumatology Care Team Information Palliative Nurse Patel Bhat MD - Gastroenterology Care Team Information Palliative Nurse [phone] Abad Dempsey MD - Dermatology Care Team Information Palliative Nurse [phone] [facility] - Gynecology Care Team Information Palliative Nurse Vinnie Gunderson MD - Obstetrics & Care Team Information Palliative Nurse [phone] Gynecology Kimberlyn Dhillon MD - Internal Care Team Information Palliative Nurse Medicine Leatha Vanegas M.D. 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 Suspension and swallow for 10 days Medical Compression as needed Dx 1units I83.93 Kimberlyn Dhillon, 02/21/2019 Stockings/Female/15-2 i83.93 M.D. 0MMHG/Knee//Keegan Misc Basaglar Kwikpen 36 units once 15ml Spencer Fabian MD 01/05/2019 daily in case of 100Unit/ML Solution pump failure. Pen-Inject Distilled Water Please provide Jenny 01/03/2019 Liquid with distilled [place], [employer] water for use in cpap machine Freestyle [...] 4 1units E11.42 Spencer Fabian MD 10/11/2018 Day/[place]/Flash times daily with Monitoring System sensor Device Metoprolol Tartrate 1 tablet twice 60tabs Spencer Fabian MD 10/11/2018 daily 100mg Tablets Admelog in pump, max 180 30ml Spencer Fabian MD 10/11/2018 100Unit/ML units/day Solution Minimed Pump replace every 10units E10.65 Spencer Fabian MD 07/08/2018 [place] 3ML other day. dx Res 3ML e10.9 [...] Loratadine 1 by mouth every 90tabs J30.9 Kimberlynjoann Dhillon, 06/14/2017 10mg Tablets day M.D. Spironolactone 1 by mouth every 90tabs L68.0 Kimberlyn Dhillon, 04/27/2017 50mg day M.D. Tablets Atorvastatin Calcium Take One Tablet By 90tabs E78.2 Kimberlyn Dhillon, 12/29 Mouth Every M.D. 80mg Tablets Evening Imodium A-D 1 by mouth twice a 60caps K31.84 12/02/2016 2mg day prn Bry RomanoD. Capsules Cellcept 2 tabs by mouth 180tabs [...] day x 3 days post op Pen [place] to be used 100units E10.65 Palmer Rui, 04/07/2019 - 32G X 6 mm Misc once per day 04/10/2019 with Lantus in case of pump failure . BD Pen use 4 times 100units Spencer Fabian, 04/05/2019 - Needle/Micro/Ultra-Fine/32G X daily with [...] Code Status Date Vaccine Reaction Lot # 95465 Given 06/01/2019 Hepatitis B Vaccine Adult [id number] Dosage 25632 Given 07/18/2018 Pneumococcal Conjugate no immediate reaction [id number] Vaccine 13 Valent For noted Intramuscular Use 75329 Given 05/12/2018 Influenza Virus Vaccine, No immediate reaction [id number] Quadrivalent, Split, noted. Preservative Free 01078 Given 06/14/2017 Tdap - [id number] Tetanus/Diptheria/Acellular Pertussis 85523 Given 06/01/2017 Influenza Virus Vaccine, no reaction noted [id number] Quadrivalent, Split, Preservative Free 02523 Given 04/02/2017 Pneumonia Vaccine Vital Signs Date Vital Result Comment 06/08/2019 2:17pm Height 67 inches 5'7" Weight 344.00 lb Heart Rate 115 /min BP Systolic 112 mmHg BP Diastolic 62 mmHg Body Temperature 97.7 F Pain Level 7 BMI (Body Mass Index) 53.9 kg/m2 06/01/2019 12:00pm Height 67 inches 5'7" Weight 344.00 lb Heart Rate 107 /min BP Systolic Sitting 124 mmHg BP Diastolic Sitting 89 mmHg O2 % BldC Oximetry 96 % BMI (Body Mass Index) 53.9 kg/m2 Results Test Date Facility Test Result H/L Range Note Laboratory test 04/19/20 [facility] Point of Care 184 mg/dL High 70-100 1 finding [address] [place], [place] [id number] [phone] Laboratory test 04/19/20 [facility] Point of Care 138 mg/dL High 70-100 2 finding [address] [place], [place] [address] [phone] Laboratory test 04/05/20 [facility] Hemoglobin A1c 5.8 % High 4.0-5.6 3 finding [address] (Glyco HGB) [place] [address] [phone] Laboratory test 03/27/20 [facility] Hepatitis B Jocelyne Not Immune Abnormal Immune finding [address] [place] [address] [phone] Urine 03/27/20 [facility] Ur Microalbumin < 15.0 Microalbumin [address] (mg/L) mg/[place] [address] [phone] Urine Creatinine 130.12 mg/dL Urine Microalbumin/Creatinine TNP <31 4 Lipid Profile 03/27/2019 [facility] Triglycerides 161 mg/dL 5 (Trig/Chol/HDL) [address] [place], [place] [address] [phone] Cholesterol 203 mg/dL 6 HDL Cholesterol 39.8 mg/dL 7 LDL Cholesterol 131 mg/dL 8 Laboratory test 03/27/2019 [facility] Erythrocyte Sed 113 mm/Hr High 0-[address] [place] [address] [phone] Urinalysis 03/27/2019 [facility] Urine Color Yellow [place] [address] [place] [address] [phone] Urine Appearance Clear Urine Specific [place] 1.014 Normal 1.010-1.030 Urine pH 6.0 Normal 5-9 Urine Urobilinogen Negative Negative Urine Ketones Negative Negative Urine Protein Negative Negative Urine Leukocytes Negative Negative Urine Blood Negative Negative Urine Nitrite Negative Negative Urine Bilirubin Negative Negative Urine Glucose Negative Negative Laboratory test 03/27/2019 [facility] C Reactive 25.87 mg/L High <8.[address] Protein [place], [place] [address] [phone] Comp Metabolic 03/27/2019 [facility] Sodium 137 mmol/L Normal 135-[address] [place] [address] [phone] Potassium 4.7 mmol/L Normal 3.5-5.0 Chloride 103 [...] Egfr Non- 101.3 >60 Egfr 122.6 >60 9 CMV Igg/Igm 03/27/2019 [facility] Cytomegalovirus IgG Negative Negative [address] [place] [address] [phone] Cytomegalovirus IgM Antibody Negative Negative Laboratory test 03/27/2019 [facility] LDH 149 U/L Normal 140- [address] [place] [address] [phone] CBC Auto Diff 03/27/2019 [facility] White Blood 22.8 High 3.5- 10.[address] Count 10^3/[place] [address] [phone] Red Blood Count 4.36 10^6/uL Normal 3.70-4.87 [...] Cells % 0.0 Comp Metabolic Panel 01/27/2019 [facility] Sodium 134 mmol/L Low 135-[address] [place] [address] [phone] Potassium 4.1 mmol/L Normal 3.5-5.0 Chloride 102 [...] 18 mmol/L High 2-11 CBC Auto 01/27/2019 [facility] White Blood 19.4 10^3/uL High 3.5-10.[address] [place] [address] [phone] Red Blood Count 4.35 10^6/uL Normal 3.70-4.87 [...] Blood Cells % 0.0 Laboratory test 01/27/2019 [facility] C Reactive 33.01 mg/L High <8.01 [address] [place] [address] [phone] Erythrocyte Sed Rate 104 mm/Hr High 0-19 14 Laboratory test 01/27/2019 [facility] Blood SEE RESULT 15, [address] [place] [address] [phone] Venous Blood 01/27/2019 [facility] Venous Blood 7.41 Normal 7.[address] pH -7.4 [place] [address] 4 [phone] Venous Pco2 33 mmHg Low 41-51 Venous Po2 46.0 mmHg High 35-45 Venous O2 Saturation 80.6 % High 70-80 Venous Blood Base Excess -2.9 mmol/L Low 0.0-4.0 17 Venous Bicarbonate Hco3 22.2 mmol/L Low 24-28 Basic Metabolic 01/27/2019 [facility] Sodium 133 mmol/L Low 135-[address] [place] [address] [phone] Potassium 3.6 mmol/L Normal 3.5-5.0 Chloride 104 mmol/L Normal 101-111 Co2 Carbon Dioxide 18 mmol/L Low 22-32 Anion Gap 11 mmol/L Normal 2-11 Glucose 147 mg/dL High 70-100 Blood Urea Nitrogen 12 mg/dL Normal 6-24 Creatinine 0.62 mg/dL Normal 0.51-0.95 BUN/Creatinine Ratio 19.4 Normal 8-20 Calcium 9.7 mg/dL Normal 8.6-10.3 Egfr Non- 108.9 >60 Egfr 131.8 >60 18 Laboratory test 01/27/2019 [facility] Troponin-I (TnI) 0.00 ng/ mL <0.[address] [place] [address] [phone] HCG < 0.60 mIU/mL 20 CBC Auto 01/27/2019 [facility] White Blood 21.1 10^3/uL High 3.5-10.[address] [place] [address] [phone] Red Blood Count 4.44 10^6/uL Normal 3.70-4.87 [...] Nucleated Red Blood Cells % 0.0 Urine Culture And 01/27/2019 [facility] Urine Culture SEE RESULT [address] [place] [address] [phone] Urinalysis Profile 01/27/2019 [facility] Urine Color Ciarra [address] [place] [address] [phone] Urine Appearance Cloudy Urine Specific [place] 1.030 Normal 1.010-1.030 Urine pH 5.0 Normal [...] Casts Present Abnormal Absent Laboratory test 01/27/2019 [facility] Lactic Acid 1.6 mmol/L Normal 0.5-2.0 [address] [place] [address] [phone] Laboratory test 12/28/2018 [facility] Point of 157 mg/dL High 70-100 [address] [place] [address] Glucose [phone] CBC Auto Diff 12/28/2018 [facility] White Blood 16.7 High 3.5- 10.[address] Count 10^3/[place] [address] [phone] Red Blood Count 4.30 10^6/uL Normal 3.70-4.87 [...] Blood Cells % 0.0 Laboratory test 12/28/2018 [facility] Lactic Acid 1.3 mmol/L Normal 0.5-2.0 24 finding [address] [place] [address] [phone] Acetaminophen < 15 g/mL 25 Alcohol < 10 mg/dL Normal <10 Salicylate < 2.50 mg/dL <30 Comp Metabolic 12/28/2018 [facility] Sodium 137 mmol/L Normal 135-145 Panel [address] [place] [address] [phone] Potassium 4.0 mmol/L Normal 3.5-5.0 Chloride 109 [...] Egfr Non- 97.9 >60 Egfr 118.5 >60 26 Laboratory test 12/28/2018 [facility] HCG < 0.60 mIU/ mL [address] [place] [address] [phone] TSH (Thyroid Stim Horm) 0.91 mcIU/mL Normal 0.34-5.60 Urinalysis Profile 12/28/2018 [facility] Urine Color Yellow [address] [place] [address] [phone] Urine Appearance Clear Urine Specific [place] 1.023 Normal 1.010-1.030 Urine pH 6.0 Normal [...] Squamous Epithelial Cell Present Abnormal Absent Urine Drug 12/28/2018 [facility] Urine None Detected None Detect SCR ED & [address] [place] [address] Screen [phone] Urine Barbiturates Screen None Detected None Detect Urine Benzodiazepine Screen None Detected None Detect Urine Cannabinoids Screen Presumptive Posi <SEE NOTE> Abnormal None Detect 28 Urine Cocaine Screen None Detected None Detect Urine Opiates Screen Presumptive Posi <SEE NOTE> Abnormal None Detect 29 Urine Phencyclidine Screen None Detected None Detect 30 Urine Culture And 12/19/2018 [facility] Urine SEE RESULT [address] [place] [address] [phone] Laboratory test 12/19/2018 [facility] Point of 169 mg/dL High 70-10 [address] Care [place] 0 [place] [address] [phone] CBC Auto Diff 12/19/2018 [facility] White Blood 14.8 High 3.5- [address] Count 10^3/uL 0.8 [place], [place] [address] [phone] Red Blood Count 4.86 10^6/uL Normal 3.70-4.87 [...] Blood Cells % 0 Urine Drug 12/19/2018 [facility] Urine None Detected None Detect SCR ED & [address] [place] [address] Screen [phone] Urine Barbiturates Screen None Detected None Detect Urine Benzodiazepine Screen None Detected None Detect Urine Cannabinoids Screen Presumptive Posi <SEE NOTE> Abnormal None Detect 33 Urine Cocaine Screen None Detected None Detect Urine Opiates Screen None Detected None Detect Urine Phencyclidine Screen None Detected None Detect 34 Comp Metabolic Panel 12/19/2018 [facility] Sodium 134 mmol/L Low 135-[address] [place] [address] [phone] Potassium 4.2 mmol/L Normal 3.5-5.0 Chloride 104 [...] Egfr 105.8 >60 35 Laboratory test 12/19/2018 [facility] Acetaminophen < 15 g/mL 36 finding [address] [place] [address] [phone] Alcohol < 10 mg/dL Normal <10 Salicylate < 2.50 mg/dL <30 TSH (Thyroid Stim Horm) 1.11 mcIU/mL Normal 0.34-5.60 Urinalysis Profile 12/19/2018 [facility] Urine Color Ciarra [address] [place] [address] [phone] Urine Appearance Cloudy Urine Specific [place] 1.026 Normal 1.010-1.030 Urine pH 5.0 Normal [...] Present Abnormal Absent Urine Culture And 12/18/2018 [facility] Urine Culture SEE RESULT [address] [place] [address] [phone] Urinalysis Profile 12/18/2018 [facility] Urine Color Ciarra [address] [place] [address] [phone] Urine Appearance Cloudy Urine Specific [place] 1.028 Normal 1.010-1.030 Urine pH 6.0 Normal [...] Cell Present Abnormal Absent CBC Auto 12/18/2018 [facility] White Blood 13.3 10^3/uL High 3.5-10.[address] [place] [address] [phone] Red Blood Count 4.58 10^6/uL Normal 3.70-4.87 [...] Blood Cells % 0 Basic Metabolic 12/18/2018 [facility] Sodium 135 mmol/L Normal 135-[address] [place] [address] [phone] Potassium 3.7 mmol/L Normal 3.5-5.0 Chloride 106 mmol/L Normal 101-111 Co2 Carbon Dioxide 20 mmol/L Low 22-32 Anion Gap 9 mmol/L Normal 2-11 Glucose 187 mg/dL High 70-100 Blood Urea Nitrogen 8 mg/dL Normal 6-24 Creatinine 0.66 mg/dL Normal 0.51-0.95 BUN/Creatinine Ratio 12.1 Normal 8-20 Calcium 9.4 mg/dL Normal 8.6-10.3 Egfr Non- 101.3 >60 Egfr 122.6 >60 38 Inr/Protime 12/14/2018 [facility] Inr 1.15 High 0.82-1.[address] [place] [address] [phone] Laboratory test 12/14/2018 [facility] Partial 36.8 High 26.0- 36.[address] [place] [address] Time PTT [phone] CBC Auto Diff 12/14/2018 [facility] White Blood 19.5 High 3.5- 10.[address] Count 10^3/[place] [address] [phone] Red Blood Count 4.94 10^6/uL High 3.70-4.87 [...] Blood Cells % 0 Laboratory test 12/14/2018 [facility] Lactic Acid 0.7 mmol/L Normal 0.5-2.[address] [place] [address] [phone] Comp Metabolic 12/14/2018 [facility] Sodium 136 mmol/L Normal 135-[address] [place] [address] [phone] Potassium 4.4 mmol/L Normal 3.5-5.0 Chloride 103 [...] Egfr 91.6 >60 41 Laboratory test 12/14/2018 [facility] Troponin-I (TnI) 0.01 ng/ mL <0.04 [address] [place] [address] [phone] Lipase 10 U/L Low 11.0-82.0 C Reactive Protein 29.09 mg/L High <8.01 HCG < 0.60 mIU/mL 43 Urinalysis Profile 12/14/2018 [facility] Urine Color Ciarra [address] [place] [address] [phone] Urine Appearance Cloudy Urine Specific [place] 1.028 Normal 1.010-1.030 Urine pH 5.0 Normal [...] Cell Present Abnormal Absent Laboratory test 12/14/2018 [facility] Pathologist (SEE NOTE) [address] [place] [address] [phone] Urine Culture And 12/14/2018 [facility] Urine Culture SEE RESULT [address] [place] [address] [phone] 1 Civil Engineering Professional: [id number] 2 Civil Engineering Professional: [id number] 3 Therapeutic target for the treatment of diabetes mellitus patients is <7% HBA1C, and in selective patients <6.0%. Please refer to [place] [employer] diabetic care guidelines for further information. 4 Unable to calculate due to low microalbumin 5 Desirable: <150 Borderline High: 150-199 High: 200-499 Very High: >500 6 Desirable: <200 Borderline High: 200-239 High: >239 7 Low: <40 Desirable: 40-60 High: >60 8 Desirable: <100 Near Optimal: 100-129 Borderline High: 130-159 High: 160-189 Very High: >189 9 Because ethnic data is not always readily [...] 15-29 5 Kidney failure <15 (or dialysis) 10 Test Performed by: [facility] [employer] [address] [place] [address] 11 Because ethnic data is not always [...] 12 Critical Result CO2:[address] ROMANO at: 19:28:13 by:[id number] Read back by:DR ROMANO 13 Please check labs this week 14 Please check labs this week 15 Patient is On Antibiotics? NO 16 SEE RESULT BELOW Name: JAYY CANTU : [address]: Lauro Ramirez MD Acct: [id number] Unit: [id number] AGE: 38 Location: ED Re01/27/19 SEX: F Status: DEP ER SPEC: [id number] [place]: 01/27/[address] [facility] [address]: Lauro Ramirez MD REQ: [id number] RECD: 01/27/19 STATUS: JOEL GARCIA DR: Kimberlyn Dhillon MD _ SOURCE: BLOOD,VENO SPDESC: ORDERED: Blood Cult COMMENTS: Patient is On Antibiotics? NO Procedure Result Reported Site Aerobic Culture Bottle Final 02/01/19- 2300 ML No Growth Day 5 Anaerobic Culture Bottle Final 02/01/19- 2300 ML No Growth Day 5 * ML - Main Lab . END OF REPORT DEPARTMENT OF PATHOLOGY, [address] [place] [address] Simón Uriarte M.D. Director [facility] # [id number] 17 Reference ranges based on room air. 18 Because ethnic data is not always readily [...] 15-29 5 Kidney failure <15 (or dialysis) 19 Troponin-I testing on Plasma Separator Tubes (PST) has a known false positive rate of 0.20-0.40%. All positive troponins reflex immediately to secondary confirmatory testing. Using the [employer] DxI 800 Access Immunoassay systems, the 99th percentile upper reference limit was demonstrated to be < 0.03 ng/mL. 20 <5.0 Negative 5.0 - 25.0 Indeterminate (Repeat testing recommended after 72 hours) >25.0 Positive Perimenopausal women can display HCG levels of up to 20 mIU/mL 21 SEE RESULT BELOW Name: JAYY CANTU : [address]: Lauro Ramirez MD Acct: [id number] Unit: [id number] AGE: 38 Location: ED Re01/27/19 SEX: F Status: REG ER SPEC: [id number] [place]: 01/27/[address]: Lauro Ramirez MD REQ: [id number] RECD: 01/27/19 STATUS: JOEL GARCIA DR: Kimberlyn Dhillon MD _ SOURCE: URINE SPDESC: ORDERED: Urine Culture Procedure Result Reported Site Urine Culture Final 01/29/19- 0809 ML No growth of clinically significant organisms * ML - Main Lab . END OF REPORT DEPARTMENT OF PATHOLOGY, [address] [place] [address] Simón Uriarte M.D. Director [facility] # [id number] 22 [facility] Severe Sepsis and Septic Shock Management Bundle Measure requires all lactic acids initially measuring >2.0 mmol/L be repeated. 23 Civil Engineering Professional: [id number] 24 [facility] Severe Sepsis and Septic Shock Management Bundle Measure requires all lactic acids initially measuring >2.0 mmol/L be repeated. 25 Therapeutic concentration: <50 ug/mL Toxic concentration: >120 ug/mL 26 Because ethnic data is not always readily [...] 15-29 5 Kidney failure <15 (or dialysis) 27 <5.0 Negative 5.0 - 25.0 Indeterminate (Repeat testing recommended after 72 hours) >25.0 Positive Perimenopausal women can display HCG levels of up to 20 mIU/mL 28 Presumptive Positive Presumptive positive results are unconfirmed. 29 Presumptive Positive Presumptive positive results are unconfirmed. 30 The urine specimen was tested at the listed cutoffs: Drug class test level (ng/mL) Amphetamines 500 Barbiturates 200 Benzodiazepine metabolites 200 Cocaine metabolites 150 Cannabinoids 50 Opiates 300 Pcp 25 Specimen was received without chain of custody. Results should be used for medical purposes only. 31 SEE RESULT BELOW Name: JAYY CANTU : [address]: Reggie Bergeron MD Acct: [id number] Unit: [id number] AGE: 38 Location: [facility] Re12/19/18 SEX: F Status: ADM IN SPEC: [id number] [place]: 12/19/[address] [facility] [address]: Ralph Bernal MD REQ: [id number] RECD: 12/19/18 STATUS: JOEL GARCIA DR: Kimberlyn Dhillon MD _ SOURCE: URINE SPDESC: ORDERED: Urine Culture Procedure Result Reported Site Urine Culture Final 12/20/18- 1634 ML No Growth (<1,000 CFU/mL) * ML - Main Lab . END OF REPORT DEPARTMENT OF PATHOLOGY, [address] [place] [address] Simón Uriarte M.D. Director [facility] # [id number] 32 Civil Engineering Professional: [id number] Presumptive Positive Presumptive positive results are [...] [address]: Lauro Ramirez MD Acct: [id number] Unit: [id number] AGE: 38 Location: ED Re12/18/18 SEX: F Status: DEP ER SPEC: [id number] [place]: 12/18/[address] [facility] [address]: Lauro Ramirez MD REQ: [id number] RECD: 12/18/18 STATUS: JOEL GARCIA DR: Kimberlyn Dhillon MD _ SOURCE: URINE SPDESC: ORDERED: Urine Culture Procedure Result Reported Site Urine Culture Final 12/19/18- 1412 ML No Growth (<1,000 CFU/mL) * ML - Main Lab . END OF REPORT DEPARTMENT OF PATHOLOGY, [address] [place] [address] Simón Uriarte M.D. Director [facility] # [id number] 38 Because ethnic data is not always [...] High intensity warfarin therapeutic range: 2.5-3.5 40 [facility] Severe Sepsis and Septic Shock Management [...] immediately to secondary confirmatory testing. Using the [employer] DxI 800 Access Immunoassay systems, the 99th [...] [address]: Lauro Ramirez MD Acct: [id number] Unit: [id number] AGE: 38 Location: ED Re12/14/18 SEX: F Status: DEP ER SPEC: [id number] [place]: 12/14/[address] [facility] [address]: Gene Gonzalez MD REQ: [id number] RECD: 12/14/18 STATUS: JOEL GARCIA DR: Kimberlyn Dhillon MD _ SOURCE: URINE [facility]: ORDERED: Urine Culture Urine Source: Clean Catch Procedure Result Reported Site Urine Culture Final 12/15/18- 1601 ML No Growth (<1,000 CFU/mL) * ML - Main Lab . END OF REPORT DEPARTMENT OF PATHOLOGY, [address] [place] [address] Simón Uriarte M.D. Director [facility] # [id number] Procedures Date Code Description Status 06/08/201955259 Inject/Drain Joint/Bursa Major W/O US Completed 04/19/2019 61438 Arthroscopy Shoulder,W/Rotator Cuff Repair Completed 04/19/2019 75532 Arthroscopy,Shoulder Decompression Of Subacromial Completed Space W/Acromio 04/06/2019 67219 Treadmill Interp/Report Only Completed 04/06/2019 83783 Stress Test Supervsn W/Out I/R Completed 03/27/2019 66323 EKG Tracing & Interpretation Completed 02/10/201929903 Inject/Drain Joint/Bursa Major W/O US Completed 12/13/2018 93505 Polysomnography Sleep Staging 4+ Parameters Completed 12/24/2016 468383911 Diabetic Retinal Eye Exam Completed Medical Devices Description No Information Available Encounters Type Date Location Provider Dx Diagnosis Office Visit 05/02/2019 [facility] Jak [place] MD M25.512 Pain in left 2:15p at [place] shoulder S46.011A Strain of musc/tend the rotator cuff of right shoulder, init Office Visit 04/20/2019 [facility] G47.33 Obstructive 1:50p Assoccherry M.D. sleep apnea Hospitalists (adult) (pediatric) Office Visit 04/19/2019 [facility] G47.33 Obstructive 1:49p [place] fountain M.D. sleep apnea Hospitalists (adult) (pediatric) E11.9 Type 2 diabetes mellitus without complications Z79.4 nursing home (current) use of insulin F41.9 Anxiety disorder, unspecified Office Visit 03/29/2019 Pulmonology And Jenny G47.33 Obstructive sleep 1:30p [facility] apnea (adult) [facility] (pediatric) E66.9 Obesity, unspecified Z68.43 Body mass index (BMI) 50.0-59.9, adult Office Visit 03/27/2019 1:20p [facility] Internal Mejia Valdivia, Z01.818 Encounter for other Medicine - preprocedural [address] examination M25.811 Other specified joint disorders, right shoulder I25.10 Athscl heart disease of [place] coronary artery w/o ang pctrs E78.2 Mixed hyperlipidemia Z68.43 Body mass index (BMI) 50.0-59.9, adult E66.01 Morbid (severe) obesity due to excess calories E10.65 Type 1 diabetes mellitus with hyperglycemia R94.31 Abnormal electrocardiogram [ECG] [EKG] Office Visit 03/09/2019 3:15p [facility] Jak Booker M75.41 Impingement at Roxane CAMARENA syndrome of right shoulder Office Visit 03/01/2019 4:00p Rheumatology Mike L95.9 [facility]ly Maradiaga M.D. limited to the skin, unspecified Z79.899 Other fci (current) drug therapy R19.7 Diarrhea, unspecified B37.0 Candidal stomatitis D72.829 Elevated white blood cell count, unspecified Office Visit 02/21/2019 2:00p [facility] Internal Kimberlyn G47.33 Obstructive sleep Medicine - Donavan Dhillon apnea (adult) [facility] (pediatric) E78.2 Mixed hyperlipidemia J45.40 Moderate persistent asthma, uncomplicated E10.65 Type 1 diabetes mellitus with hyperglycemia I73.9 Peripheral vascular disease, unspecified I83.93 Asymptomatic varicose veins of bilateral lower extremities Office 02/15/2019 [facility] Jillian G43.719 Chronic migraine Visit 11:00a Damien Rosa M.D. w/o aura, intractable, w/o stat migr Office 02/10/2019 [facility] at Jak Booker M75.41 Impingement Visit 11:30a Roxane CAMARENA syndrome of right shoulder Office 01/02/2019 [facility] Francheska E10.65 Type 1 diabetes Visit 4:30p Endocrinology of [facility] Marker, RPA-C mellitus with hyperglycemia Office 12/19/2018 [facility] Jenny G47.33 Obstructive sleep Visit 2:30p [facility] GEM Winston apnea (adult) (pediatric) G47.00 Insomnia, unspecified E66.01 Morbid (severe) obesity due to excess calories G25.81 Restless legs syndrome F43.10 Post-traumatic stress disorder, unspecified Z72.821 Inadequate sleep hygiene Z68.42 Body mass index (BMI) 45.0-49.9, adult Office Visit 12/12/2018 3:40p Rheumatology Mike L95.9 [facility] Maradiaga M.D. 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 unspecified 03/01/2019 Z79.899 Other fci (current) drug therapy Mike Maradiaga M.D. 03/01/2019 R19.7 Diarrhea, unspecified Miek Maradiaga M.D. 03/01/2019 B37.0 Candidal stomatitis Mike [...] Mike Maradiaga M.D. unspecified 12/12/2018 Z79.899 Other fci (current) drug therapy Mike Maradiaga M.D. 12/12/2018 G62.9 Polyneuropathy, unspecified Mike Maradiaga M.D. 12/12/2018 G25.81 Restless legs syndrome Mike Maradiaga M.D. Plan of Treatment Future Appointment(s):08/10/2019 1:30 pm - Jak Booker MD at [facility] at Riquud5006/19/2019 2:00 pm - Yadira Bobby M.D. at [facility] at Dpfyvz3312/01/2019 1:00 pm - Nurse Visit A at [facility] Internal Medicine - [facility]07/03/2019 1:00 pm - Nurse Visit A at [facility] Internal [facility] - [facility]/05/2019 2:30 pm - Jenny Winston NP at [facility]08/02/2019 11:00 am - Jillian Rosa M.D. at [facility] Nmqxwg4806/08/2019 - Jak Booker, MDM75.42 Impingement syndrome of left shoulderFollow up:Follow up: As needed 2 months Functional Status Description No Information Available Mental Status Description No Information Available Referrals Refer to Dr Reason for Referral Status Appt Date Yadira Bobby MD Sent 06/19/2019 [address] [place] [address] [place] [address] [phone] Brett Kelley DO, [facility] surgical clearance, intermittent chest Sent 04/05 pain. ordering stress test [facility] [place] [address] [phone]
--- OUTSIDE RECORDS SUMMARY | 2019-06-25 09:44 | XMS REPORT | Continuity of Care Document ---
:1980 External Reference #:[id number] Author Name Jak Booker MD (transmitted by agent of provider Wanda Mitchell) Address [address] [facility], [place] [address] Care Team Providers Name Role Phone Mike Maradiaga MD - Rheumatology Care Team Information Paramedic Instructor [phone] Patel Bhat MD - Gastroenterology Care Team Information Paramedic Instructor [phone] Abad Dempsey MD - Dermatology Care Team Information Paramedic Instructor [facility] - Gynecology Care Team Information Paramedic Instructor [phone] Vinnie Gunderson MD - Obstetrics & Care Team Information Paramedic Instructor Gynecology Kimberlyn Dhillon MD - Internal Care Team Information Paramedic Instructor Medicine Leatha Vanegas M.D. 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 Suspension and swallow for 10 days Medical Compression as needed Dx 1units I83.93 Kimberlyn Dhillon, 02/21/2019 Stockings/Female/15-2 i83.93 M.D. 0MMHG/Knee//Keegan Misc Basaglar Kwikpen 36 units once 15ml Spencer Fabian MD 01/05/2019 daily in case of 100Unit/ML Solution pump failure. 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 dx Res 3ML e10.9 [...] Kimberlyn Dhillon, 12/02/2016 10mg Capsules day M.D. Artificial Tears drops to eyes prn Unknown Solution Acetaminophen-Codeine 1 tab by mouth Unknown #3 [...] mouth every Unknown 60mg day Caps DR Madyson Clifton apply twice daily Unknown 0.4-0.3% as needed for dry Solution eyes Duloxetine HCL 1 by mouth every Unknown 20mg day Caps DR Madyson Ferrell 2-Amos use as directed 2units Deidra Godinez MD 0.3mg/0.3ML Solution Auto-Inject Tums 1 by mouth 3 Unknown 500mg Chewtabs times a day as needed, may keep in her room Ventolin HFA 2 puffs by mouth 18gm Kimberlyn Dhillon, every 6 hours as M.D. 108(90Base) mcg/Act needed Aerosol Naproxen Sodium every 12 hrs prn Unknown 500mg pain clinic Capsules Diphenhydramine HCL 1-2 tabs every Unknown Maximum Strength 4-6hrs as needed 25mg Tablets Lorazepam one by mouth twice Unknown 1mg Tablets a day as needed for anxiety Prazosin HCL 4 capsules at Unknown 2mg bedtime Capsules Melatonin 1 tab by mouth Unknown 10mg Capsules daily and as needed Zolpidem Tartrate 1 tab by mouth Unknown 10mg every night at Tablets bedtime Glucagon Emergency as needed Unknown 1mg Kit Breo Ellipta one inhalation Unknown daily 200-25mcg/Inh Aerosol Cetirizine HCL 1 by mouth every Unknown 10mg day prn Tablets History Medications Oxycodone-Acetaminophen 1 tabs by 18taekaterina Booker, 04/19/2019 - 5-325mg Tablets mouth every MD 04/30/2019 4-6 hours as needed for pain Cephalexin take 1 by 12tabs Jak Booker, 04/19/2019 - 500mg Tablets mouth four MD 04/25/2019 times a day x 3 days post op Pen [place] to be used 100units E10.65 Spencer Fabian, 04/07/2019 - 32G X 6 mm Misc once per day 04/10/2019 with Lantus in case of pump failure . BD Pen use 4 times 100units Spencer Fabian 04/05/2019 - Needle/Micro/Ultra-Fine/32G X daily with 04/10/2019 6mm 32G X insulin 6 mm Misc injections, when pump fails Lantus Solostar inject 36 3ml E11.65 Spencer Fabian, 01/02/2019 - 100Unit/ML Solution units once 01/04/2019 [...] Code Status Date Vaccine Reaction Lot # 31133 Given 07/18/2018 Pneumococcal Conjugate no immediate reaction [id number] Vaccine 13 Valent For noted Intramuscular Use 17507 Given 05/12/2018 Influenza Virus Vaccine, No immediate reaction [id number] Quadrivalent, Split, noted. Preservative Free 70985 Given 06/14/2017 Tdap - [id number] Tetanus/Diptheria/Acellular Pertussis 19586 Given 06/01/2017 Influenza Virus Vaccine, no reaction noted [id number] Quadrivalent, Split, Preservative Free 15203 Given 04/02/2017 Pneumonia Vaccine Vital Signs Date Vital Result Comment 05/30/2019 2:05pm Height 67 inches 5'7" Weight 334.00 lb Heart Rate 108 /min Body Temperature 97.7 F Pain Level 5 BMI (Body Mass Index) 52.3 kg/m2 05/09/2019 4:00pm Height 67 inches 5'7" Weight 339.00 lb Heart Rate 104 /min BP Systolic 130 mmHg BP Diastolic 72 mmHg Body Temperature 98.2 F Pain Level 8 BMI (Body Mass Index) 53.1 kg/m2 Results Test Date Facility Test Result H/L Range Note Laboratory test 04/19/20 [facility] Point of Care 184 mg/dL High 70-100 1 finding [address] Gl[place], [place] [address] [phone] Laboratory test 04/19/20 [facility] Point of Care 138 mg/dL High 70-100 2 finding [address] [place], [place] [address] [phone] Laboratory test 04/05/20 [facility] Hemoglobin A1c 5.8 % High 4.0-5.6 3 finding [address] (Glyco HGB) [place] [address] [phone] Laboratory test 03/27/20 [facility] Hepatitis B Jocelyne Not Immune Abnormal Immune finding [address] [place] [address] [phone] Urine 03/27/20 [facility] Ur Microalbumin < 15.0 Microalbumin [address] (mg/L) mg/[place] [address] [phone] Urine Creatinine 130.12 mg/dL Urine Microalbumin/Creatinine TNP <31 4 Lipid Profile 03/27/2019 [facility] Triglycerides 161 mg/dL 5 (Trig/Chol/HDL) [address] [place], [place] [address] [phone] Cholesterol 203 mg/dL 6 HDL Cholesterol 39.8 mg/dL 7 LDL Cholesterol 131 mg/dL 8 Laboratory test 03/27/2019 [facility] Erythrocyte Sed 113 mm/Hr High 0-[address] [place] [address] [phone] Urinalysis 03/27/2019 [facility] Urine Color Yellow [place] [address] [place] [address] [phone] Urine Appearance Clear Urine Specific Orem 1.014 Normal 1.010-1.030 Urine pH 6.0 Normal 5-9 Urine Urobilinogen Negative Negative Urine Ketones Negative Negative Urine Protein Negative Negative Urine Leukocytes Negative Negative Urine Blood Negative Negative Urine Nitrite Negative Negative Urine Bilirubin Negative Negative Urine Glucose Negative Negative Laboratory 03/27/2019 [facility] C Reactive Protein 25.87 mg/L High <8.[address] [place] [address] [phone] CMV Igg/Igm 03/27/2019 [facility] Cytomegalovirus Negative Negative [address] IgG Antibody [place], [place] [address] [phone] Cytomegalovirus IgM Antibody Negative Negative Laboratory test 03/27/2019 [facility] LDH 149 U/L Normal 140- [address] [place] [address] [phone] CBC Auto Diff 03/27/2019 [facility] White Blood 22.8 High 3.5- 10.[address] Count 10^3/uL [place], [place] [address] [phone] Red Blood Count 4.36 10^6/uL Normal 3.70-4.87 [...] Blood Cells % 0.0 Comp Metabolic 03/27/2019 [facility] Sodium 137 mmol/L Normal 135-[address] [place] [address] [phone] Potassium 4.7 mmol/L Normal 3.5-5.0 Chloride 103 [...] Egfr 122.6 >60 10 Laboratory test 01/27/2019 [facility] Blood SEE RESULT 11, [address] [place] [address] [phone] Venous Blood 01/27/2019 [facility] Venous Blood 7.41 Normal 7.[address] pH -7.4 [place] [address] 3 [phone] Venous Pco2 33 mmHg Low 41-51 Venous Po2 46.0 mmHg High 35-45 Venous O2 Saturation 80.6 % High 70-80 Venous Blood Base Excess -2.9 mmol/L Low 0.0-4.0 13 Venous Bicarbonate Hco3 22.2 mmol/L Low 24-28 Comp Metabolic Panel 01/27/2019 [facility] Sodium 134 mmol/L Low 135-[address] [place] [address] [phone] Potassium 4.1 mmol/L Normal 3.5-5.0 Chloride 102 [...] 18 mmol/L High 2-11 CBC Auto 01/27/2019 [facility] White Blood 19.4 10^3/uL High 3.5-10.[address] [place] [address] [phone] Red Blood Count 4.35 10^6/uL Normal 3.70-4.87 [...] Blood Cells % 0.0 Basic Metabolic 01/27/2019 [facility] Sodium 133 mmol/L Low 135-[address] [place] [address] [phone] Potassium 3.6 mmol/L Normal 3.5-5.0 Chloride 104 mmol/L Normal 101-111 Co2 Carbon Dioxide 18 mmol/L Low 22-32 Anion Gap 11 mmol/L Normal 2-11 Glucose 147 mg/dL High 70-100 Blood Urea Nitrogen 12 mg/dL Normal 6-24 Creatinine 0.62 mg/dL Normal 0.51-0.95 BUN/Creatinine Ratio 19.4 Normal 8-20 Calcium 9.7 mg/dL Normal 8.6-10.3 Egfr Non- 108.9 >60 Egfr 131.8 >60 16 Laboratory test 01/27/2019 [facility] Troponin-I (TnI) 0.00 ng/ mL <0.04 [address] [place] [address] [phone] HCG < 0.60 mIU/mL 18 CBC Auto 01/27/2019 [facility] White Blood 21.1 10^3/uL High 3.5-10.[address] [place] [address] [phone] Red Blood Count 4.44 10^6/uL Normal 3.70-4.87 [...] Blood Cells % 0.0 Laboratory test 01/27/2019 [facility] Lactic Acid 1.6 mmol/L Normal 0.5-2.0 [address] [place], [place] [address] [phone] Laboratory test 01/27/2019 [facility] C Reactive 33.01 mg/L High <8.01 [address] [place] [address] [phone] Erythrocyte Sed Rate 104 mm/Hr High 0-19 21 Urine Culture And 01/27/2019 [facility] Urine Culture SEE RESULT [address] [place] [address] [phone] Urinalysis Profile 01/27/2019 [facility] Urine Color Ciarra [address] [place] [address] [phone] Urine Appearance Cloudy Urine Specific Orem 1.030 Normal 1.010-1.030 Urine pH 5.0 Normal [...] Hyaline Casts Present Abnormal Absent Laboratory 12/28/2018 [facility] Point of Care 157 mg/dL High 70-100 23 test finding [address] [place], [place] [address] [phone] Urine Drug SCR 12/28/2018 [facility] Urine None None ED & Pain [address] Amphetamine [place] [address] Screen [phone] Urine Barbiturates Screen None Detected None Detect Urine Benzodiazepine Screen None Detected None Detect Urine Cannabinoids Screen Presumptive Posi <SEE NOTE> Abnormal None Detect 24 Urine Cocaine Screen None Detected None Detect Urine Opiates Screen Presumptive Posi <SEE NOTE> Abnormal None Detect 25 Urine Phencyclidine Screen None Detected None Detect 26 CBC Auto 12/28/2018 [facility] White Blood 16.7 10^3/uL High 3.5-10.[address] [place] [address] [phone] Red Blood Count 4.30 10^6/uL Normal 3.70-4.87 [...] Blood Cells % 0.0 Laboratory test 12/28/2018 [facility] Lactic Acid 1.3 mmol/L Normal 0.5-2.0 27 finding [address] [place] [address] [phone] Acetaminophen < 15 g/mL 28 Alcohol < 10 mg/dL Normal <10 Salicylate < 2.50 mg/dL <30 Comp Metabolic 12/28/2018 [facility] Sodium 137 mmol/L Normal 135-145 Panel [address] [place] [address] [phone] Potassium 4.0 mmol/L Normal 3.5-5.0 Chloride 109 [...] Egfr 118.5 >60 29 Laboratory test 12/28/2018 [facility] HCG < 0.60 mIU/ mL [address] [place] [address] [phone] TSH (Thyroid Stim Horm) 0.91 mcIU/mL Normal 0.34-5.60 Urinalysis Profile 12/28/2018 [facility] Urine Color Yellow [address] [place] [address] [phone] Urine Appearance Clear Urine Specific Orem 1.023 Normal 1.010-1.030 Urine pH 6.0 Normal [...] Cell Present Abnormal Absent Laboratory test 12/19/2018 [facility] Point of 169 mg/dL High 70-100 [address] [place] [address] [phone] CBC Auto Diff 12/19/2018 [facility] White Blood 14.8 High 3.5- 10.[address] Count 10^3/[place] [address] [phone] Red Blood Count 4.86 10^6/uL Normal 3.70-4.87 [...] Blood Cells % 0 Urine Drug 12/19/2018 [facility] Urine None Detected None Detect SCR ED & [address] [place] [address] Screen [phone] Urine Barbiturates Screen None Detected None Detect Urine Benzodiazepine Screen None Detected None Detect Urine Cannabinoids Screen Presumptive Posi <SEE NOTE> Abnormal None Detect 32 Urine Cocaine Screen None Detected None Detect Urine Opiates Screen None Detected None Detect Urine Phencyclidine Screen None Detected None Detect 33 Comp Metabolic Panel 12/19/2018 [facility] Sodium 134 mmol/L Low 135-[address] [place], [place] [address] [phone] Potassium 4.2 mmol/L Normal 3.5-5.0 Chloride 104 [...] Egfr 105.8 >60 34 Laboratory test 12/19/2018 [facility] Acetaminophen < 15 g/mL [address] [place] [address] [phone] Alcohol < 10 mg/dL Normal <10 Salicylate < 2.50 mg/dL <30 TSH (Thyroid Stim Horm) 1.11 mcIU/mL Normal 0.34-5.60 Urinalysis Profile 12/19/2018 [facility] Urine Color Ciarra [address] [place] [address] [phone] Urine Appearance Cloudy Urine Specific Orem 1.026 Normal 1.010-1.030 Urine pH 5.0 Normal [...] Present Abnormal Absent Urine Culture And 12/19/2018 [facility] Urine Culture SEE RESULT [address] [place] [address] [phone] Urine Culture And 12/18/2018 [facility] Urine Culture SEE RESULT [address] [place] [address] [phone] Urinalysis Profile 12/18/2018 [facility] Urine Color C[address]ra [address] [place] [address] [phone] Urine Appearance Cloudy Urine Specific Orem 1.028 Normal 1.010-1.030 Urine pH 6.0 Normal [...] Cell Present Abnormal Absent CBC Auto 12/18/2018 [facility] White Blood 13.3 10^3/uL High 3.5-10.[address] [place] [address] [phone] Red Blood Count 4.58 10^6/uL Normal 3.70-4.87 [...] Blood Cells % 0 Basic Metabolic 12/18/2018 [facility] Sodium 135 mmol/L Normal 135-145 Panel [facility] [place] [place] [address] [phone] Potassium 3.7 mmol/L Normal 3.5-5.0 Chloride 106 mmol/L Normal 101-111 Co2 Carbon Dioxide 20 mmol/L Low 22-32 Anion Gap 9 mmol/L Normal 2-11 Glucose 187 mg/dL High 70-100 Blood Urea Nitrogen 8 mg/dL Normal 6-24 Creatinine 0.66 mg/dL Normal 0.51-0.95 BUN/Creatinine Ratio 12.1 Normal 8-20 Calcium 9.4 mg/dL Normal 8.6-10.3 Egfr Non- 101.3 >60 Egfr 122.6 >60 38 Inr/Protime 12/14/2018 [facility] Inr 1.15 High 0.82-1.09 39 [facility] [place] [place] [address] [phone] Laboratory test 12/14/2018 [facility] Partial 36.8 High 26.0- 36.3 [address] [facility] [place] [address] Time PTT [phone] CBC Auto Diff 12/14/2018 [facility] White Blood 19.5 High 3.5- 10.[address] Count 10^3/[place] [address] [phone] Red Blood Count 4.94 10^6/uL High 3.70-4.87 [...] Blood Cells % 0 Laboratory test 12/14/2018 [facility] Lactic Acid 0.7 mmol/L Normal 0.5-2.[address] [place] [address] [phone] Comp Metabolic 12/14/2018 [facility] Sodium 136 mmol/L Normal 135-[address] [place] [address] [phone] Potassium 4.4 mmol/L Normal 3.5-5.0 Chloride 103 [...] Egfr 91.6 >60 41 Laboratory test 12/14/2018 [facility] Troponin-I (TnI) 0.01 ng/ mL <0.04 [address] [place] [address] [phone] Lipase 10 U/L Low 11.0-82.0 C Reactive Protein 29.09 mg/L High <8.01 HCG < 0.60 mIU/mL 43 Urinalysis Profile 12/14/2018 [facility] Urine Color Ciarra [address] [place] [address] [phone] Urine Appearance Cloudy Urine Specific Orem 1.028 Normal 1.010-1.030 Urine pH 5.0 Normal [...] Cell Present Abnormal Absent Laboratory test 12/14/2018 [facility] Pathologist (SEE NOTE) [address] [place] [address] [phone] Urine Culture And 12/14/2018 [facility] Urine Culture SEE RESULT [address] [place] [address] [phone] 1 Product Sales Engineer: [id number] Product Sales Engineer: [id number] 3 Therapeutic target for the treatment of diabetes mellitus patients is <7% HBA1C, and in selective patients <6.0%. Please refer to [place] [employer] diabetic care guidelines for further information. 4 Unable to calculate due to low microalbumin 5 Desirable: <150 Borderline High: 150-199 High: 200-499 Very High: >500 6 Desirable: <200 Borderline High: 200-239 High: >239 7 Low: <40 Desirable: 40-60 High: >60 8 Desirable: <100 Near Optimal: 100-129 Borderline High: 130-159 High: 160-189 Very High: >189 9 Test Performed by: [facility] [address] [place] [address] 10 Because ethnic data is not always [...] Antibiotics? NO 12 SEE RESULT BELOW Name: AVERYTUCKER GAITANA : [address]: Lauro Ramirez MD Acct: [id number] Unit: [id number] AGE: 38 Location: ED Re01/27/19 SEX: F Status: DEP ER SPEC: [id number] [place]: 01/27/[address] [facility] [address]: Lauro Ramirez MD REQ: [id number] RECD: 01/27/19 STATUS: JOEL GARCIA DR: Kimberlyn Dhillon MD _ SOURCE: BLOOD,VENO SPDESC: ORDERED: Blood Cult COMMENTS: Patient is On Antibiotics? NO Procedure Result Reported Site Aerobic Culture Bottle Final 02/01/19- 2300 ML No Growth Day 5 Anaerobic Culture Bottle Final 02/01/19- 2300 ML No Growth Day 5 * ML - Main Lab . END OF REPORT DEPARTMENT OF PATHOLOGY, [address] [place] [address] Simón Uriarte M.D. Director [facility] # [id number] 13 Reference ranges based on room air. [...] CO2:[address] RODRIGUEZ at: 19:28:13 by:[id number] Read back by:DR RODRIGUEZ 16 Because ethnic [...] immediately to secondary confirmatory testing. Using the [employer] DxI 800 Access Immunoassay systems, the 99th percentile upper reference limit was demonstrated to be < 0.03 ng/mL. 18 <5.0 Negative 5.0 - 25.0 Indeterminate (Repeat testing recommended after 72 hours) >25.0 Positive Perimenopausal women can display HCG levels of up to 20 mIU/mL 19 [facility] Severe Sepsis and Septic Shock Management Bundle Measure requires all lactic acids initially measuring >2.0 mmol/L be repeated. 20 Please check labs this week 21 Please check labs this week 22 SEE RESULT BELOW Name: JAYY CANTU : [address]: Lauro Ramirez MD Acct: [id number] Unit: [id number] AGE: 38 Location: ED Re01/27/19 SEX: F Status: REG ER SPEC: [id number] [place]: 01/27/[address] [facility] [address]: Lauro Ramirez MD REQ: [id number] RECD: 01/27/19 STATUS: JOEL GARCIA DR: Kimberlyn Dhillon MD _ SOURCE: URINE SPDESC: ORDERED: Urine Culture Procedure Result Reported Site Urine Culture Final 01/29/19- 0809 ML No growth of clinically significant organisms * ML - Main Lab . END OF REPORT DEPARTMENT OF PATHOLOGY, [address] [place] [address] Simón Uriarte M.D. Director [facility] # [id number] 23 Product Sales Engineer: [id number] Presumptive Positive Presumptive positive results are unconfirmed. 25 Presumptive Positive Presumptive positive results are unconfirmed. 26 The urine specimen was tested at the listed cutoffs: Drug class test level (ng/mL) Amphetamines 500 Barbiturates 200 Benzodiazepine metabolites 200 Cocaine metabolites 150 Cannabinoids 50 Opiates 300 Pcp 25 Specimen was received without chain of custody. Results should be used for medical purposes only. 27 [facility] Severe Sepsis and Septic Shock Management Bundle [...] levels of up to 20 mIU/mL 31 Product Sales Engineer: [id number] Presumptive Positive Presumptive positive results are [...] >120 ug/mL 36 SEE RESULT BELOW Name: PEPEJAYY : [address]: Reggie Bergeron MD Acct: [id number] Unit: [id number] AGE: 38 Location: [facility] Re12/19/18 SEX: F Status: ADM IN SPEC: [id number] [place]: 12/19/[address] [facility] [address]: Ralph Bernal MD REQ: [id number] RECD: 12/19/18 STATUS: JOEL GARCIA DR: Kimberlyn Dhillon MD _ SOURCE: URINE SPDESC: ORDERED: Urine Culture Procedure Result Reported Site Urine Culture Final 12/20/18- 1634 ML No Growth (<1,000 CFU/mL) * ML - Main Lab . END OF REPORT DEPARTMENT OF PATHOLOGY, [address] [place] [address] Smión Uriarte M.D. Director [facility] # [id number] 37 SEE RESULT BELOW Name: JAYY CANTU : [address]: Lauro Ramirez MD Acct: [id number] Unit: [id number] AGE: 38 Location: ED Re12/18/18 SEX: F Status: DEP ER SPEC: [id number] [place]: 12/18/[address] [facility] [address]: Lauro Ramirez MD REQ: [id number] RECD: 12/18/18 STATUS: JOEL GARCIA DR: Kimberlyn Dhillon MD _ SOURCE: URINE SPDESC: ORDERED: Urine Culture Procedure Result Reported Site Urine Culture Final 12/19/18- 1412 ML No Growth (<1,000 CFU/mL) * ML - Main Lab . END OF REPORT DEPARTMENT OF PATHOLOGY, [address] [place] [address] Simón Uriarte M.D. Director [facility] # [id number] 38 Because ethnic data is not always [...] High intensity warfarin therapeutic range: 2.5-3.5 40 [facility] Severe Sepsis and Septic Shock Management Bundle [...] immediately to secondary confirmatory testing. Using the [employer] DxI 800 Access Immunoassay systems, the 99th [...] Dr. Uriarte 45 SEE RESULT BELOW Name: TUCKER CANTUA : [address]: Lauro Ramirez MD Acct: [id number] Unit: [id number] AGE: 38 Location: ED Re12/14/18 SEX: F Status: DEP ER SPEC: [id number] [place]: 12/14/[address] [facility] [address]: Gene Gonzalez MD REQ: [id number] RECD: 12/14/18 STATUS: JOEL GARCIA DR: Kimberlyn Dhillon MD _ [facility] ORDERED: Urine Culture Urine Source: Clean Catch Procedure Result Reported Site Urine Culture Final 12/15/18- 1601 ML No Growth (<1,000 CFU/mL) * ML - Main Lab . END OF REPORT DEPARTMENT OF PATHOLOGY, [address] [place] [address] Simón Uriarte M.D. Director [facility] # [id number] Procedures Date Code Description Status 04/19/2019 50986 Arthroscopy Shoulder,W/Rotator Cuff Repair Completed 04/19/2019 71979 Arthroscopy,Shoulder Decompression Of Subacromial Completed Space W/Acromio 04/06/2019 70611 Treadmill Interp/Report Only Completed 04/06/2019 15246 Stress Test Supervsn W/Out I/R Completed 03/27/2019 58154 EKG Tracing & Interpretation Completed 02/10/2019 47980 Inject/Drain Joint/Bursa Major W/O US Completed 12/13/2018 13176 Polysomnography Sleep Staging 4+ Parameters Completed 12/24/2016 042023573 Diabetic Retinal Eye Exam Completed Medical Devices Description No Information Available Encounters Type Date Location Provider Dx Diagnosis Office Visit 05/02/2019 [facility] Jak Booker MD M25.512 Pain in left 2:15p at Reeders shoulder S46.011A Strain of musc/tend the rotator cuff of right shoulder, init Office Visit 04/20/2019 [facility] G47.33 Obstructive 1:50p Assoccherry M.D. sleep apnea Hospitalists (adult) (pediatric) Office Visit 04/19/2019 [facility] G47.33 Obstructive 1:49p cherry Rojas M.D. 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 (pediatric) E66.9 Obesity, unspecified Z68.43 Body mass index (BMI) 50.0-59.9, adult Office Visit 03/27/2019 1:20p [facility] Internal Mejia Valdivia, Z01.818 Encounter for other Medicine - preprocedural Suite R examination M25.811 Other specified joint disorders, right shoulder I25.10 Athscl heart disease of [place] coronary artery w/o ang pctrs E78.2 Mixed hyperlipidemia Z68.43 Body mass index (BMI) 50.0-59.9, adult E66.01 Morbid (severe) obesity due to excess calories E10.65 Type 1 diabetes mellitus with hyperglycemia R94.31 Abnormal electrocardiogram [ECG] [EKG] Office Visit 03/09/2019 3:15p [facility] Jak Booker M75.41 Impingement at Roxane CAMARENA syndrome of right shoulder Office Visit 03/01/2019 4:00p Rheumatology Mike L95.9 Vasculitis Services Of Amberly Maradiaga M.D. 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 Internal Kimberlyn G47.33 Obstructive sleep Medicine - Donavan Dhillon apnea (adult) [facility] (pediatric) E78.2 Mixed hyperlipidemia J45.40 Moderate persistent asthma, uncomplicated E10.65 Type 1 diabetes mellitus with hyperglycemia I73.9 Peripheral vascular disease, unspecified I83.93 Asymptomatic varicose veins of bilateral lower extremities Office 02/15/2019 [facility] Jillian G43.719 Chronic migraine Visit 11:00a Clinic Donavan Rosa w/o aura, intractable, w/o stat migr Office 02/10/2019 [facility] at Jak Booker M75.41 Impingement Visit 11:30a Roxane CAMARENA syndrome of right shoulder Office 01/02/2019 [facility] Francheska E10.65 Type 1 diabetes Visit 4:30p Endocrinology of [facility] Marker, RPA-C mellitus with hyperglycemia Office 12/19/2018 [facility] Sleep Jenny G47.33 Obstructive sleep Visit 2:30p Services Of [facility] GEM Winston apnea (adult) (pediatric) G47.00 Insomnia, unspecified E66.01 Morbid (severe) obesity due to excess calories G25.81 Restless legs syndrome F43.10 Post-traumatic stress disorder, unspecified Z72.821 Inadequate sleep hygiene Z68.42 Body mass index (BMI) 45.0-49.9, adult Office Visit 12/12/2018 3:40p Rheumatology Mike L95.9 [facility] Amberly Maradiaga M.D. 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 12/12/2018 G62.9 Polyneuropathy, unspecified Mike Maradiaga M.D. 12/12/2018 G25.81 Restless legs syndrome Mike Maradiaga M.D. Plan of Treatment Future Appointment(s):06/13/2019 1:45 pm - Jak Booker MD at [facility] at [id number]/01/2019 12:10 pm - Kimberlyn Dhillon M.D. at [facility] Internal Medicine - [facility]07/05/2019 2:30 pm - Jenny Winston NP at [facility]08/02/2019 11:00 am - Jillian Rosa M.D. at [facility] [id number]/30/2019 - Jak Booker, MDS46.011D Strain of muscle(s ) and tendon(s) of the rotator cuff of right shoulder, subsequent encounterNew Therapy:Physical TherapyFollow up:Follow up: Functional Status Description No Information Available Mental Status Description No Information Available Referrals Refer to Dr Reason for Referral Status Appt Date Brett Kelley, DO, [facility] surgical clearance, intermittent chest Sent 04/05 pain. ordering stress test [address] [place] [id number] [phone]
[2019-06-25 09:57] VITALS: BP 121/88
--- NOTE | 2019-06-25 10:09 | UC ---
Skin Complaint HPI - HPI Summary HPI Summary: Patient is a 38-year-old female presenting with an abscess of right axillary region that she noticed this morning. Notes moderate tenderness to touch. Denies drainage but would like it lanced today. Patient states she has had these in the past and "some have become very infected." Denies fever and chills. Denies nausea or vomiting. - History of Current Complaint Chief Complaint: UCSkin Stated Complaint: soft tissue Hx Obtained From: Patient Hx Last Menstrual Period: 06/23/19 Onset/Duration: Sudden Onset Current Severity: Moderate Pain Intensity: 8 - Allergy/Home Medications Allergies/Adverse Reactions: Allergies Allergy/AdvReac Type Severity Reaction Status Date / Time Adhesive Tape Allergy Severe Rash Verified 06/25/19 09:50 asenapine Allergy Severe Rash Verified 06/25/19 09:50 bee venom protein (honey bee) Allergy Severe Anaphylatic Verified 06/25/19 09:50 Shock lurasidone [From Latuda] Allergy Severe Vomiting Verified 06/25/19 09:50 metoclopramide [From Reglan] Allergy Severe Abdominal Verified 06/25/19 09:50 Pain paclitaxel [From Taxol] Allergy Severe Rash Verified 06/25/19 09:50 Sulfa (Sulfonamide Allergy Severe Rash Verified 06/25/19 09:50 Antibiotics) sulfamethoxazole Allergy Severe Rash Verified 06/25/19 09:50 [From Bactrim] trimethoprim [From Bactrim] Allergy Severe Hives Verified 06/25/19 09:50 nalbuphine [From Nubain] AdvReac Severe Rash Verified 06/25/19 09:50 paroxetine [From Paxil] AdvReac Severe Vomiting Verified 06/25/19 09:50 tramadol AdvReac Severe Rash Verified 06/25/19 09:50 "metal" Allergy Severe Swelling Uncoded 06/25/19 09:50 zepeda Allergy Severe Nausea And Uncoded 06/25/19 09:50 Vomiting PMH/Surg Hx/FS Hx/Imm Hx Endocrine History: Diabetes Cardiovascular History: Hypertension GI/ History: Gastroesophageal Reflux - Surgical History Surgical History: Yes Surgery Procedure, Year, and Place: Cholecystectomy [facility]. Cardiac Catherterization-NO STENT [facility] 2005, 2016 [facility] [place],. [place]nar nerve release 2018, [facility] [place]. 04/19/19 - RT SHOULDER - ( NO EXTERNAL METAL) - Family History Known Family History: Positive: Cardiac Disease, Diabetes, Other - blod clots Negative: Hypertension - Social History Alcohol Use: None Alcohol Amount: none today Substance Use Type: Marijuana Substance Use Comment - Amount & Last Used: medical / recreational marijuana Smoking Status (MU): Former Smoker Type: Cigarettes Amount Used/How Often: 2 cigarettes/day Length of Time of Smoking/Using Tobacco: 4 CIG/DAY 2 YEARS Have You Smoked in the Last Year: Yes When Did the Patient Quit Smoking/Using Tobacco: 2018 Household Exposure Type: Cigarettes - Immunization History Most Recent Influenza Vaccination: 2017-last season Most Recent Tetanus Shot: 2002 Most Recent Pneumonia Vaccination: 2017 Review of Systems All Other Systems Reviewed And Are Negative: No Constitutional: Positive: Negative. Negative: Fever, Chills Skin: Positive: Other - abscess R axilla Respiratory: Positive: Negative Cardiovascular: Positive: Negative Gastrointestinal: Positive: Negative. Negative: Vomiting, Nausea Musculoskeletal: Positive: Negative Neurological: Positive: Negative Physical Exam Triage Information Reviewed: Yes Appearance: Well-Appearing, No Pain Distress, Well-Nourished Vital Signs: Initial Vital Signs Temp 97.5 F 06/25/19 09:51 Pulse 86 06/25/19 09:51 Resp 18 06/25/19 09:51 BP 121/88 06/25/19 09:51 Pulse Ox 96 06/25/19 09:51 Vital Signs Reviewed: Yes Eyes: Positive: Conjunctiva Clear ENT: Positive: Hearing grossly normal Neck: Positive: Supple Respiratory: Positive: No respiratory distress Neurological: Positive: Alert Psychological: Positive: Age Appropriate Behavior Skin: Positive: Other - 2.5 firm lump surrounded by erythema noted of R axilla. tenderness to palpation. no active drainage Procedures - Incision and Drainage Right Lower Axilla Anesthesia: Local, Lidocaine Instrument(s): Scalpel Course/Dx - Course Course Of Treatment: I performed an I&D and expressed a small amount of drainage from the abscess. A culture was sent. Patient tolerated procedure well. Prescribed Keflex for treatment of infection as patient states lanced abscess have become infected in the past. Instructed patient to follow up with PCP or dermatology for recurrent abscesses to be further evaluated. Educated on signs and symptoms of infection and cellulitis and instructed to go to ED if any occur. Patient voiced understanding and agreed with the treatment plan. - Diagnoses Provider Diagnosis: Abscess of axilla, right Discharge ED - Sign-Out/Discharge Documenting (check all that apply): Patient Departure All imaging exams completed and their final reports reviewed: No Studies - Discharge Plan Condition: Stable Disposition: HOME Prescriptions: Cephalexin CAP* [Keflex CAP*] 500 mg PO TID #21 cap Patient Education Materials: Abscess (ED) Referrals: Kimberlyn Dhillon MD [Primary Care Provider] - If Needed Additional Instructions: As discussed, take Keflex as prescribed for the treatment of your abscess. You may continue with warm compresses 2-3 daily to help alleviate symptoms. Follow up with your PCP or the rn on site listed below for follow up if symptoms persist. Go to the emergency room if you experience increasing pain, nausea, vomiting, or fever. - Billing Disposition and Condition Condition: STABLE Disposition: Home - Attestation Statements Provider Attestation: Per institutional requirements, I have reviewed the chart, however, I was not consulted specifically or made aware of this patient by the midlevel provider. I did not personally evaluate, interact with , or disposition this patient.
[2019-06-25] MEDS ORDERED: Lidocaine 1% MPF ** 5 ML VIAL INJ ONE (10:32)
--- NOTE | 2019-06-26 07:00 | UC ---
- Progress Note Progress Note: staph + MRSA neg on keflex no change - await sensitivity ljj Course/Dx - Diagnoses Provider Diagnoses: Abscess of axilla, right Discharge ED - Sign-Out/Discharge Documenting (check all that apply): Post-Discharge Follow Up All imaging exams completed and their final reports reviewed: No Studies - Discharge Plan Condition: Stable Disposition: HOME Prescriptions: Cephalexin CAP* [Keflex CAP*] 500 mg PO TID #21 cap Patient Education Materials: Abscess (ED) Referrals: Kimberlyn Dhillon MD [Primary Care Provider] - If Needed Additional Instructions: As discussed, take Keflex as prescribed for the treatment of your abscess. You may continue with warm compresses 2-3 daily to help alleviate symptoms. Follow up with your PCP or the glass deposition tender listed below for follow up if symptoms persist. Go to the emergency room if you experience increasing pain, nausea, vomiting, or fever. - Billing Disposition and Condition Condition: STABLE Disposition: Home
== END 2019-06-25 11:13 | disposition home or self-care (01) ==
LOC: UCEAST 09:37
DX: L02.411 Cutaneous abscess of right axilla (principal); E11.9 Type 2 diabetes mellitus without complications; I10 Essential (primary) hypertension; Z91.09 Other allergy status, other than to drugs and biological substances; Z91.030 Bee allergy status; Z88.8 Allergy status to other drugs, medicaments and biological substances; Z88.2 Allergy status to sulfonamides; Z88.6 Allergy status to analgesic agent; Z87.891 Personal history of nicotine dependence
CPT/HCPCS: 10060; 87070; 87077; 87186; 87205; 87640; 87641; 99212; G0463

== ENCOUNTER 2019-06-27 14:00 | Emergency (ER) | payer OTHER ==
[2019-06-27 15:15] VITALS: BP 126/100
--- NOTE | 2019-06-27 17:15 | ED ---
Skin Complaint - HPI Summary HPI Summary: Pt is a 38-year-old obese female presenting to the ED with a concern for an abscess in the right axilla. Patient states she had an I&D performed 2 days ago at urgent care, however this was not packed. She was placed on Keflex at the time. She states over the past 2 days, there has been growing, is now sore and erythematous. She states she has several of these per year, however has never been diagnosed with hydradenitis suppurativa. She has never had abscesses in other areas. Denies any fevers, sweats, chills. Denies CP or SOB. - History of Current Complaint Chief Complaint: EDRashSkinAbscess Time Seen by Provider: 06/27/19 14:34 Stated Complaint: ABSCESS PER PT Hx Obtained From: Patient Hx Last Menstrual Period: 06/23/19 Onset/Duration: Started Hours Ago Skin Exposure Onset/Duration: Hours Ago Timing: Constant Onset Severity: Moderate Current Severity: Moderate Pain Intensity: 7 Pain Scale Used: 0-10 Numeric Character: Swelling, Pain, Redness, Raised, Painful Aggravating Symptom(s): Nothing Alleviating Symptom(s): Nothing Associated Signs & Symptoms: Negative - Additional Pertinent History Primary Care Physician: [id number] - Allergy/Home Medications Allergies/Adverse Reactions: Allergies Allergy/AdvReac Type Severity Reaction Status Date / Time Adhesive Tape Allergy Severe Rash Verified 06/27/19 13:45 asenapine Allergy Severe Rash Verified 06/27/19 13:45 bee venom protein (honey bee) Allergy Severe Anaphylatic Verified 06/27/19 13:45 Shock lurasidone [From Latuda] Allergy Severe Vomiting Verified 06/27/19 13:45 metoclopramide [From Reglan] Allergy Severe Abdominal Verified 06/27/19 13:45 Pain paclitaxel [From Taxol] Allergy Severe Rash Verified 06/27/19 13:45 Sulfa (Sulfonamide Allergy Severe Rash Verified 06/27/19 13:45 Antibiotics) sulfamethoxazole Allergy Severe Rash Verified 06/27/19 13:45 [From Bactrim] trimethoprim [From Bactrim] Allergy Severe Hives Verified 06/27/19 13:45 nalbuphine [From Nubain] AdvReac Severe Rash Verified 06/27/19 13:45 paroxetine [From Paxil] AdvReac Severe Vomiting Verified 06/27/19 13:45 tramadol AdvReac Severe Rash Verified 06/27/19 13:45 "metal" Allergy Severe Swelling Uncoded 06/27/19 13:45 zepeda Allergy Severe Nausea And Uncoded 06/27/19 13:45 Vomiting PMH/Surg Hx/FS Hx/Imm Hx Previously Healthy: Yes Endocrine/Hematology History: Reports: Hx Diabetes, Hx Anemia Denies: Hx Thyroid Disease, Other Endocrine/Hematological Disorders Cardiovascular History: Reports: Hx Angina, Hx Hypercholesterolemia, Hx Hypertension, Other Cardiovascular Problems/Disorders - vasculitis. tachycardia Denies: Hx Coronary Artery Disease, Hx Myocardial Infarction, Hx Pacemaker/ ICD, Hx Peripheral Vascular Disease, Hx Valvular Heart Disease Respiratory History: Reports: Hx Asthma, Hx Sleep Apnea Denies: Hx Chronic Obstructive Pulmonary Disease (COPD), Other Respiratory Problems/Disorders GI History: Reports: Hx Crohn's Disease, Hx Gastroesophageal Reflux Disease, Hx Irritable Bowel, Other GI Disorders - gastroparesis Denies: Hx Ulcer History: Denies: Hx Dialysis, Hx Renal Disease, Other Problems/Disorders Musculoskeletal History: Reports: Hx Arthritis - back and knees, Other Musculoskeletal History - Ulnar nerve compression Right arm Denies: Hx Osteoporosis Sensory History: Reports: Hx Contacts or Glasses Denies: Hx Legally Blind, Hx Deafness, Hx Hearing Aid Opthamlomology History: Reports: Hx Contacts or Glasses Denies: Hx Legally Blind Neurological History: Reports: Hx Headaches, Hx Migraine, Hx Nerve Disease - diabetic neuropathy Denies: Hx Seizures, Hx Transient Ischemic Attacks (TIA), Other Neuro Impairments/Disorders Psychiatric History: Reports: Hx Anxiety, Hx Depression, Hx Panic Disorder - PTSD, Hx Post Traumatic Stress Disorder, Hx Inpatient Treatment, Hx Community Mental Health Tx, Hx Bipolar Disorder, Hx Suicide Attempt, Other Psychiatric Issues/Disorders - Borderline Personality Disorder Denies: Hx Attention Deficit Hyperactivity Disorder, Hx Eating Disorder, Hx Schizophrenia, Hx of Violent Episodes Against Others - Cancer History Hx Chemotherapy: No - Surgical History Surgery Procedure, Year, and Place: Cholecystectomy [facility] in [place]. Cardiac Catherterization-NO STENT [facility] in [place] 2005, [place] [facility] [place],. [place]nar nerve release 2018, [facility] [place] 04/19/19 - RT SHOULDER - ( NO EXTERNAL METAL) Hx Anesthesia Reactions: No - Immunization History Date of Tetanus Vaccine: utd Date of Influenza Vaccine: fall 2016 Hx Pertussis Vaccination: No Immunizations Up to Date: Yes Infectious Disease History: No Infectious Disease History: Reports: Hx of Known/Suspected MRSA Denies: Hx Hepatitis, Hx Human Immunodeficiency Virus (HIV), Traveled Outside the [place] in Last 30 Days - Family History Known Family History: Positive: Cardiac Disease, Diabetes, Other - blod clots Negative: Hypertension - Social History Occupation: Employed Full-time Lives: With Family Alcohol Use: None Alcohol Amount: none today Hx Substance Use: Yes Substance Use Type: Reports: None Substance Use Comment - Amount & Last Used: medical / recreational marijuana Hx Tobacco Use: Yes Smoking Status (MU): Former Smoker Type: Cigarettes Amount Used/How Often: 2 cigarettes/day Length of Time of Smoking/Using Tobacco: 4 CIG/DAY 2 YEARS Have You Smoked in the Last Year: Yes Review of Systems Negative: Fever, Chills, Fatigue, Skin Diaphoresis Negative: Shortness Of Breath, Cough Negative: Abdominal Pain Positive: Other - right axillary abscess Neurological: Negative All Other Systems Reviewed And Are Negative: Yes Physical Exam Triage Information Reviewed: Yes Vital Signs On Initial Exam: Initial Vitals Temp Pulse Resp BP Pulse Ox 96.3 F 105 18 149/123 97 06/27/19 14:03 06/27/19 14:03 06/27/19 14:03 06/27/19 14:03 06/27/19 14:03 Vital Signs Reviewed: Yes Appearance: Positive: Well-Appearing, Well-Nourished Skin: Positive: Skin Color Reflects Adequate Perfusion, Other - right axillary abscess Eyes: Positive: EOMI, RICO, Conjunctiva Clear Neck: Positive: Supple, No Lymphadenopathy Respiratory/Lung Sounds: Positive: Clear to Auscultation, Breath Sounds Present Cardiovascular: Positive: RRR, Pulses are Symmetrical in both Upper and Lower Extremities Musculoskeletal: Positive: Strength/ROM Intact Neurological: Positive: Sensory/Motor Intact, Alert, Oriented to Person Place, Time, Speech Normal Psychiatric: Positive: Affect/Mood Appropriate Procedures - Sedation Patient Received Moderate/Deep Sedation with Procedure: No - Incision and Drainage Right Axilla Site: R axillary Anesthesia: Local, Lidocaine Instrument(s): Scalpel Packing: Gauze Diagnostics - Vital Signs Vital Signs Temp Pulse Resp BP Pulse Ox 06/27/19 15:14 97 F 90 16 126/100 97 06/27/19 14:03 96.3 F 105 18 149/123 97 - Laboratory Lab Statement: Any lab studies that have been ordered have been reviewed, and results considered in the medical decision making process. Course/Dx - Course Course Of Treatment: During the course of treatment, the patient is evaluated for right axillary abscess. Abscess is approximately 2 cm in diameter, fluctuant and raised. Warm, tender, erythematous. Procedure: Cleansed thoroughly using chlorhexidine. 2 mL lidocaine without up you used as local anesthetic. Patient tolerated well. To the most superior portion of the fluctuant abscess, it 0.6 cm incision was made, copious amounts of purulent drainage from the area, approximately 3 mL drainage. Culture sent. Packed with one quarter iodoform dressing, 3 cm length. Patient will follow up with PCP in 2 days for repacking or recheck of wound. Patient is currently on Keflex from urgent care. No additional antibiotics needed at this time. We will await culture and sensitivities. Assessment/Plan: Dressing change in 2 days. Given follow-up to surgery. - Differential Diagnoses - Skin Complaint Differential Diagnoses: Abscess - Diagnoses Provider Diagnoses: Abscess Discharge ED - Sign-Out/Discharge Documenting (check all that apply): Patient Departure - Discharge Plan Condition: Stable Disposition: HOME Patient Education Materials: Abscess (ED), Hidradenitis Suppurativa (ED) Referrals: Kimberlyn Dhillon MD [Primary Care Provider] - Juan David Castorena MD [Medical Doctor] - Additional Instructions: Continue with warm compresses Keep the bandage applied until you follow up in 2 days to get the abscess repacked or remove packing only Continue on your antibiotics Please follow up with a surgeon if you continue to develop abscesses to this area This could be a condition called hydradenitis suppurativa I have given you a referral. - Billing Disposition and Condition Condition: STABLE Disposition: Home - Attestation Statements Provider Attestation: I was available for consultation for this patient. I did not evaluate the patient or participate in any medical decision making or disposition decisions unless I am specifically named in the chart as having consulted on the patient. If I have consulted on the patient, please see my own ED note on the patient encounter. Heath Barber MD
--- NOTE | 2019-06-27 20:51 | PN ---
Progress Note - Progress Note Date of Service: 06/27/19 Note: Wound culture result called into me by microbiology lab at 8:30pm stating: wound culture from right axilla abscess on Evelyn Leigh positive for staph, negative for MRSA. Chart from this patient's visit today was reviewed by me. Discharge note advised patient to continue taking antibiotics. Unclear which antibiotics and unclear who provided prescription. Patient was seen by Erika CHAVEZ, will be working tomorrow daytime. Note will be left for her to review case.
--- NOTE | 2019-06-27 21:16 | UC ---
- Progress Note Progress Note: Patient was seen 06/25 at urgent care and again 06/27 in ER. On Keflex, should continue treatment as stated by ER on 06/27. -Laurita Vizcaino PAC Course/Dx - Diagnoses Provider Diagnoses: Abscess Discharge ED - Sign-Out/Discharge Documenting (check all that apply): Patient Departure - Discharge Plan Condition: Stable Disposition: HOME Patient Education Materials: Abscess (ED), Hidradenitis Suppurativa (ED) Referrals: Kimberlyn Dhillon MD [Primary Care Provider] - Juan David Castorena MD [Medical Doctor] - Additional Instructions: Continue with warm compresses Keep the bandage applied until you follow up in 2 days to get the abscess repacked or remove packing only Continue on your antibiotics Please follow up with a surgeon if you continue to develop abscesses to this area This could be a condition called hydradenitis suppurativa I have given you a referral. - Billing Disposition and Condition Condition: STABLE Disposition: Home
--- NOTE | 2019-06-28 05:58 | ED ---
Imaging and Labs Follow Up Follow Up Type: Labs/Cultures Labs/Culture Result: Bacterial culture shows MRSA negative but staphylococcal aureus positive preliminary results showed 4+ neutrophils, 2+ epithelial cells, 3+ gram- positive cocci and clusters resembling staph. This patient was placed on Keflex which is presumptively adequate for treating stopcock aureus. Awaiting sensitivities at this time. Patient Communication/Plan: patient is presumptively on adequate treatment. Nothing further at this time. Provider Diagnoses: Abscess
== END 2019-06-27 15:14 | disposition home or self-care (01) ==
LOC: ED 14:00
DX: L02.411 Cutaneous abscess of right axilla (principal); E11.9 Type 2 diabetes mellitus without complications; D64.9 Anemia, unspecified; E78.00 Pure hypercholesterolemia, unspecified; I10 Essential (primary) hypertension; R51 Headache; F41.9 Anxiety disorder, unspecified; F32.9 Major depressive disorder, single episode, unspecified; Z87.891 Personal history of nicotine dependence; Z86.14 Personal history of Methicillin resistant Staphylococcus aureus infection
CPT/HCPCS: 87070; 87077; 87186; 87205; 87640; 87641; 99282

== ENCOUNTER 2019-07-29 10:08 | Emergency (ER) | payer OTHER ==
--- OUTSIDE RECORDS SUMMARY | 2019-07-29 10:19 | XMS REPORT ---
:1980 Author Organization [facility] Care Team Providers Name Role Phone Unavailable Unavailable Unavailable Problems Condition Condition Condition Status Onset Resolution Last Treating Comments Name Details Category Date Date Treatment Clinician Date Pain frequent Pain Mgmt Resolve 2018-082019-07-03 Anita pain d 08-31 12:37:00 (Rusty) 08:45: Bejarano 00 [id number] Respiratory dyspnea Respirator Resolve 2018-082019-07-03 Anita present y d 08-31 12:37:00 (Rusty) 08:45: Bejarano 00 [id number] Endo/Dano diabetic Endo/Dano Resolve 2018-082019-07-03 Anita foot care d 08-31 12:37:00 (Rusty) 08:45: Bejarano 00 [id number] Integument surgical Integument Active 2018-08 Anita wound 08-31 (Rusty) present 08:45: Bejarano 00 [id number] Nutrition nutritional Nutrition Resolve 2018-082019-07-03 Anita restriction d 08-31 12:37:00 (Rusty) s 08:45: Bejarano 00 [id number] Elimination urinary Eliminatio Resolve 2018-082019-07-03 Anita incontinenc n d 08-31 12:37:00 (Rusty) e 08:45: Bejarano 00 [id number] Neuro confusion Neuro/Emot Resolve 2018-082019-07-05 Anita present ion d 08-31 12:25:00 (Rusty) 08:45: Bejarano 00 [id number] Neuro anxiety Neuro/Emot Resolve 2018-082019-07-05 Anita present ion d 08-31 12:25:00 (Rusty) 08:45: Bejarano 00 [id number] Neuro depressive Neuro/Emot Resolve 2018-082019-07-05 Anita feelings ion d 08-31 12:25:00 (Rusty) present 08:45: Bejarano 00 [id number] Neuro impaired Neuro/Emot Resolve 2018-082019-07-05 Anita decision-ma ion d 08-31 12:25:00 (Rusty) sumanth 08:45: Bejarano 00 [id number] Activity ADL Activity Resolve 2018-082019-07-05 Anita assistance d 08-31 12:25:00 (Rusty) required 08:45: Bejarano 00 [id number] Activity self-care Activity Resolve 2018-082019-07-05 Anita deficit d 08-31 12:25:00 (Rusty) 08:45: Bejarano 00 [id number] Safety fall risk Safety Resolve 2018-082019-07-03 Anita factor d 08-31 12:37:00 (Rusty) present 08:45: Bejarano 00 [id number] Safety risk for Safety Resolve 2018-082019-07-03 Anita hospitaliza d 08-31 12:37:00 (Rusty) tion 08:45: Bejarano 00 [id number] Medication oral med Meds Resolve 2018-082019-07-03 Anita assistance d 08-31 12:37:00 (Rusty) required 08:45: Bejarano 00 [id number] Medication injectable Meds Resolve 2018-082019-07-03 Anita med d 08-31 12:37:00 (Rusty) assistance 08:45: Bejarano required 00 [id number] Endo/Dano anti-coagul Endo/Dano Resolve 2018-082019-07-03 Lu ation d 09-02 12:37:00 Nguyen therapy 12:37: 00 Endo/Dano anti-coagul Endo/Dano Resolve 2018-082019-07-05 Lu ation d 09-04 12:25:00 Nguyen therapy 12:25: 00 Safety risk for Safety Resolve 2018-082019-07-05 Lu hospitaliza d 09-04 12:25:00 Nguyen tion 12:25: 00 Endo/Dano anti-coagul Endo/Dano Active 2018-08 Lu ation 09-11 Nguyen therapy 10:36: 00 Neuro impaired Neuro/Emot Active 2018-08 Lu boyer-ma ion 09-11 Nguyen sumanth 10:36: 00 Safety risk for Safety Active 2018-08 Lu hospitaliza 09-11 Nguyen tion 10:36: 00 Allergies, Adverse Reactions, Alerts Allergy Name Allergy Status Severity Reaction(s) Onset Inactive Treating Comments Type Date Date Clinician asenapine Base Active Unknown Reaction Carlota Beam Ingredient Unknown 04-27 bee venom Base Active Unknown Reaction Carlota Beam protein Ingredient Unknown 04-27 (honey bee) Paxil Medication Active Unknown Reaction Carlota Beam Name ID Unknown 04-27 Sulfa Allergen Active Unknown Reaction Carlota Beam (Sulfonamide Group Unknown 04-27 Antibiotics) tramadol Base Active Unknown Reaction Carlota Beam Ingredient Unknown 04-27 Latuda Medication Active Unknown Reaction Carlota Beam Name ID Unknown 04-27 Bactrim Medication Active Unknown Reaction Carlota Beam Name ID Unknown 04-27 adhesive Base Active Unknown Reaction Carlota Beam tape Ingredient Unknown 04-27 Reglan Medication Active Unknown Reaction Carlota Beam Name ID Unknown 04-27 Saphris Medication Active Unknown Reaction Carlota Beam Name ID Unknown 04-27 nalbuphine Base Active Unknown Reaction Carlota Beam Ingredient Unknown 04-27 Medications Ordered Filled Start Stop Current Ordering Indication Dosage Frequency Signature Comments Components Medication Medication Date Date Medication? Clinician (SIG) Name Name loratadine loratadine 2018-08 Yes Dhillon Unknown Unknown 10 mg 10 mg 08-31 MD,Kimberlyn capsule capsule melatonin melatonin 2018-08 Yes Dhillon Unknown Unknown 10 mg 10 mg 08-31 MD,Kimberlyn tablet tablet albuterol albuterol 2018-08 Yes Dhillon Unknown Unknown sulfate HFA sulfate HFA 08-31 MD,Kimberlyn 90 90 mcg/actuati mcg/actuati on aerosol on aerosol inhaler inhaler loperamide loperamide 2018-08 Yes Dhillon Unknown Unknown 2 mg 2 mg 08-31 MD,Kimberlyn capsule capsule LORazepam 1 LORazepam 1 2018-08 Yes Dhillon Unknown Unknown mg tablet mg tablet 08-31 MD,Kimberlyn mirtazapine mirtazapine 2018-08 Yes Dhillon Unknown Unknown 15 mg 15 mg 08-31 MD,Kimberlyn tablet tablet spironolact spironolact 2018-08 Yes Dhillon Unknown Unknown one 50 mg one 50 mg 08-31 MD,Kimberlyn tablet tablet SUMAtriptan SUMAtriptan 2018-08 Yes Dhillon Unknown Unknown 100 mg 100 mg 08-31 MD,Kimberlyn tablet tablet topiramate topiramate 2018-08 Yes Dhillon Unknown Unknown 100 mg 100 mg 08-31 ,Kimberlyn tablet tablet metoprolol metoprolol 2018-08 Yes Dhillon Unknown Unknown tartrate tartrate 08-31 ,Kimberlyn 100 mg 100 mg tablet tablet Naprosyn Naprosyn 2018-08 Yes Dhillon Unknown Unknown 500 mg 500 mg 08-31 ,Kimberlyn tablet tablet docusate docusate 2018-08 Yes Dhillon Unknown Unknown sodium 100 sodium 100 08-31 ,Kimberlyn mg capsule mg capsule etonogestre etonogestre 2018-08 Yes Dhillon Unknown Unknown l 68 mg l 68 mg 08-31 ,Kimberlyn subdermal subdermal implant implant atorvastati atorvastati 2018-08 Yes Dhillon Unknown Unknown n 80 mg n 80 mg 08-31 ,Kimberlyn tablet tablet dicyclomine dicyclomine 2018-08 Yes Dhillon Unknown Unknown 10 mg 10 mg 08-31 ,Kimberlyn capsule capsule EPINEPHrine EPINEPHrine 2018-08 Yes Dhillon Unknown Unknown 0.3 mg/0.3 0.3 mg/0.3 08-31 ,Kmiberlyn mL mL injection, injection, auto-inject auto-inject or or Tums Tums 2018-08 Yes Dhillon Unknown Unknown Freshers Freshers 08-31 ,Kimberlyn 200 mg 200 mg calcium calcium (500 mg) (500 mg) chewable chewable tablet tablet cetirizine cetirizine 2018-08 Yes Dhillon Unknown Unknown 10 mg 10 mg 08-31 ,Kimberlyn capsule capsule butalbital- butalbital- 2018-08 Yes Dhillon Unknown Unknown acetaminoph acetaminoph 08-31 ,Kimberlyn en 50 en 50 mg-325 mg mg-325 mg tablet tablet Systane Systane 2018-08 Yes Dhillon Unknown Unknown (PF) 0.4 (PF) 0.4 08-31 ,Kimberlyn %-0.3 % eye %-0.3 % eye drops in a drops in a dropperette dropperette DULoxetine DULoxetine 2018-08 Yes Dhillon Unknown Unknown 60 mg 60 mg 08-31 MD,Kimberlyn capsule,del capsule,del ayed ayed release release DULoxetine DULoxetine 2018-08 Yes Dhillon Unknown Unknown 20 mg 20 mg 08-31 MD,Kimberlyn capsule,del capsule,del ayed ayed release release dapsone 25 dapsone 25 2018-08 Yes Alejo Unknown Unknown mg tablet mg tablet 08-31 Kimberlyn CAMARENA gabapentin gabapentin 2018-08 Yes Dhillon Unknown Unknown 600 mg 600 mg 08-31 ,Kimberlyn tablet tablet gabapentin gabapentin 2018-08 Yes Dhillon Unknown Unknown 600 mg 600 mg 08-31 ,Kimberlyn tablet tablet lispro lispro 2018-08 Yes Dhillon Unknown Unknown insulin insulin 08-31 ,Kimberlyn Aimovig Aimovig 2018-08 Yes Dhillon Unknown Unknown Autoinjecto Autoinjecto 08-31 Kimberlyn CAMARENA r 70 mg/mL r 70 mg/mL subcutaneou subcutaneou s s auto-inject auto-inject or or prazosin 1 prazosin 1 2018-08 Yes Dhillon Unknown Unknown mg capsule mg capsule 08-31 Kimberlyn CAMARENA medical medical 2018-08 Yes Dhillon Unknown Unknown marijuana marijuana 08-31 Kimberlyn CAMARENA acetaminoph acetaminoph 2018-08 Yes Dhillon Unknown Unknown en wtih en wtih 08-31 Kimberlyn CAMARENA codeine #3 codeine #3 mycophenola mycophenola 2018-08 Yes Dhillon Unknown Unknown te mofetil te mofetil 08-31 Kimberlyn CAMARENA 500 mg 500 mg tablet tablet zolpidem 10 zolpidem 10 2018-08 Yes Alejo Unknown Unknown mg tablet mg tablet 08-31 Kimberlyn CAMARENA pantoprazol pantoprazol 2018-08 Yes Dhillon Unknown Unknown e 40 mg e 40 mg 08-31 Kimberlyn CAMARENA tablet,alexx tablet,alexx yed release yed release diphenhydrA diphenhydrA 2018-08 Yes Dhillon Unknown Unknown MINE 25 mg MINE 25 mg 08-31 ,Kimberlyn capsule capsule Vital Signs Vital Name Observation Time Observation Value Comments SYSTOLIC mm[Hg] 2019-07-12 18:08:57 128 mm[Hg] mm[Hg] Method: Sit SYSTOLIC mm[Hg] 2019-07-02 18:08:47 140 mm[Hg] mm[Hg] Method: Stand DIASTOLIC mm[Hg] 2019-07-12 18:08:57 72 mm[Hg] mm[Hg] Method: Sit DIASTOLIC mm[Hg] 2019-07-02 18:08:47 80 mm[Hg] mm[Hg] Method: Stand PULSE 2019-07-12 18:08:57 76 /min /min RESP RATE 2019-07-12 18:08:57 18 /min /min TEMP 2019-07-12 18:08:57 97.3 [degF] Procedures This patient has no known procedures. Results This patient has no known results.
--- OUTSIDE RECORDS SUMMARY | 2019-07-29 10:19 | XMS REPORT ---
:1980 Author Organization [facility] Care Team Providers Name Role Phone Unavailable Unavailable Unavailable Problems Condition Condition Condition Status Onset Resolution Last Treating Comments Name Details Category Date Date Treatment Clinician Date Pain frequent Pain Mgmt Resolve 2018-082019-07-03 Anita pain d 08-31 12:37:00 (Rusty) 08:45: Bejarano 00 [id number] Respiratory dyspnea Respirator Resolve 2018-082019-07-03 Anita present y d 08-31 12:37:00 (Rusty) 08:45: Bejarano 00 [id number] Endo/Dano diabetic Endo/Dano Resolve 2018-082019-07-03 Anita foot care d 08-31 12:37:00 (Rusty) 08:45: Bejarano 00 [id number] Integument surgical Integument Resolve 2018-082019-07-25 Anita wound d 08-31 09:40:00 (Rusty) present 08:45: Bejarano 00 [id number] Nutrition nutritional Nutrition Resolve 2018-082019-07-03 Anita restriction d 08-31 12:37:00 (Rusty) s 08:45: Bejarano 00 [id number] Elimination urinary Eliminatio Resolve 2018-082019-07-03 Anita incontinenc n d 08-31 12:37:00 (Rusty) e 08:45: Bejarano 00 [id number] Neuro confusion Neuro/Emot Resolve 2018-082019-07-05 Anita present ion d 08-31 12:25:00 (Rusty) 08:45: Bejarano 00 [id number] Neuro anxiety Neuro/Emot Resolve 2018-082019-07-05 Anita present ion d 08-31 12:25:00 (Rusty) 08:45: Bjearano 00 [id number] Neuro depressive Neuro/Emot Resolve 2018-082019-07-05 Anita feelings ion d 08-31 12:25:00 (Rusty) present 08:45: Bejarano 00 [id number] Neuro impaired Neuro/Emot Resolve 2018-082019-07-05 Anita decision-ma ion d 08-31 12:25:00 (Rusty) sumanth 08:45: Bejarano 00 [id number] Activity ADL Activity Resolve 2018-082019-07-05 Anita assistance d 08-31 12:25:00 (Rusty) required 08:45: Bejarano 00 [id number] Activity self-care Activity Resolve 2018-082019-07-05 Anita deficit d 08-31 12:25:00 (Rusty) 08:45: Bejarano 00 [id number] Safety fall risk Safety Resolve 2018-082019-07-03 Anita factor d 08-31 12:37:00 (Rusty) present 08:45: Bejarano 00 [id number] Safety risk for Safety Resolve 2018-082019-07-03 Anita hospitaliza d 08-31 12:37:00 (Rusty) tion 08:45: Bejarano 00 [id number] Medication oral med Meds Resolve 2018-082019-07-03 Anita assistance d 08-31 12:37:00 (Rusty) required 08:45: Bejarano 00 [id number] Medication injectable Meds Resolve 2018-082019-07-03 Anita med d 08-31 12:37:00 (Rusty) assistance 08:45: Bejarano required 00 [id number] Endo/Dano anti-coagul Endo/Dano Resolve 2018-082019-07-03 Lu ation d 09-02 12:37:00 Nguyen therapy 12:37: 00 Endo/Dano anti-coagul Endo/Dano Resolve 2018-082019-07-05 Lu ation d 09-04 12:25:00 Nguyen therapy 12:25: 00 Safety risk for Safety Resolve 2018-082019-07-05 Lu hospitaliza d 09-04 12:25:00 Nguyen tion 12:25: 00 Endo/Dano anti-coagul Endo/Dano Resolve 2018-082019-07-17 Lu ation d 09-11 11:00:00 Nguyen therapy 10:36: 00 Neuro impaired Neuro/Emot Resolve 2018-082019-07-17 Lu decision-ma ion d 09-11 11:00:00 Patrick julio 10:36: 00 Safety risk for Safety Resolve 2018-08-25 Lu alejandrajaylen suárez 09-11 11:00:00 Patrick dangelo 10:36: 00 Allergies, Adverse Reactions, Alerts Allergy [...] Medication? Clinician (SIG) Name Name loratadine loratadine 2018-08- Yes Dhillon Unknown Unknown 10 mg 10 mg 08-31 Mony CAMARENAKimberlyn capsule capsule melatonin melatonin 2018-08- Yes Alejo Unknown Unknown 10 mg 10 mg 08-31 MDKimberlyn tablet tablet albuterol albuterol 2018-08- Yes Dhillon Unknown Unknown sulfate HFA sulfate HFA 08-31 MDKimberlyn 90 90 mcg/actuati mcg/actuati on aerosol on aerosol inhaler inhaler loperamide loperamide 2018-08- Yes Alejo Unknown Unknown 2 mg 2 mg 08-31 MDKimberlyn capsule capsule LORazepam 1 LORazepam 1 2018-08- Yes Alejo Unknown Unknown mg tablet mg tablet 08-31 Kimberlyn CAMARENA mirtazapine mirtazapine 2018-08- Yes Dhillon Unknown Unknown 15 mg 15 mg 08-31 MD,Kimberlyn tablet tablet spironolact spironolact 2018-08- Yes Dhillon Unknown Unknown one 50 mg one 50 mg 08-31 ,Kimberlyn tablet tablet SUMAtriptan SUMAtriptan 2018-08- Yes Dhillon Unknown Unknown 100 mg 100 mg 08-31 ,Kimberlyn tablet tablet topiramate topiramate 2018-08- Yes Dhillon Unknown Unknown 100 mg 100 mg 08-31 ,Kimberlyn tablet tablet metoprolol metoprolol 2018-08- Yes Dhillon Unknown Unknown tartrate tartrate 08-31 ,Kimberlyn 100 mg 100 mg tablet tablet Naprosyn Naprosyn 2018-08- Yes Dhillon Unknown Unknown 500 mg 500 mg 08-31 ,Kimberlyn tablet tablet docusate docusate 2018-08- Yes Dhillon Unknown Unknown sodium 100 sodium 100 08-31 ,Kimberlyn mg capsule mg capsule etonogestre etonogestre 2018-08- Yes Dhillon Unknown Unknown l 68 mg l 68 mg 08-31 ,Kimberlyn subdermal subdermal implant implant atorvastati atorvastati 2018-08- Yes Dhillon Unknown Unknown n 80 mg n 80 mg 08-31 ,Kimberlyn tablet tablet dicyclomine dicyclomine 2018-08- Yes Dhillon Unknown Unknown 10 mg 10 mg 08-31 ,Kimberlyn capsule capsule EPINEPHrine EPINEPHrine 2018-08- Yes Dhillon Unknown Unknown 0.3 mg/0.3 0.3 mg/0.3 08-31 ,Kimberlyn mL mL injection, injection, auto-inject auto-inject or or Tums Tums 2018-08- Yes Dhillon Unknown Unknown Freshers Freshers 08-31 ,Kimberlyn 200 mg 200 mg calcium calcium (500 mg) (500 mg) chewable chewable tablet tablet cetirizine cetirizine 2018-08- Yes Dhillon Unknown Unknown 10 mg 10 mg 08-31 ,Kimberlyn capsule capsule butalbital- butalbital- 2018-08- Yes Dhillon Unknown Unknown acetaminoph acetaminoph 08-31 Kimberlyn CAMARENA en 50 en 50 mg-325 mg mg-325 mg tablet tablet Systane Systane 2018-08- Yes Dhillon Unknown Unknown (PF) 0.4 (PF) 0.4 08-31 Kimberlyn CAMARENA %-0.3 % eye %-0.3 % eye drops in a drops in a dropperette dropperette DULoxetine DULoxetine 2018-08- Yes Dhillon Unknown Unknown 60 mg 60 mg 08-31 ,Kimberlyn capsule,del capsule,del ayed ayed release release DULoxetine DULoxetine 2018-08- Yes Dhillon Unknown Unknown 20 mg 20 mg 08-31 ,Kimberlyn capsule,del capsule,del ayed ayed release release dapsone 25 dapsone 25 2018-08- Yes Dhillon Unknown Unknown mg tablet mg tablet 08-31 Kimberlyn CAMARENA gabapentin gabapentin 2018-08- Yes Dhillon Unknown Unknown 600 mg 600 mg 08-31 Kimberlyn CAMARENA tablet tablet gabapentin gabapentin 2018-08- Yes Dhillon Unknown Unknown 600 mg 600 mg 08-31 Kimberlyn CAMARENA tablet tablet lispro lispro 2018-08- Yes Dhillon Unknown Unknown insulin insulin 08-31 Kimberlyn CAMARENA Aimovig Aimovig 2018-08- Yes Dhillon Unknown Unknown Autoinjecto Autoinjecto 08-31 Kimberlyn CAMARENA r 70 mg/mL r 70 mg/mL subcutaneou subcutaneou s s auto-inject auto-inject or or prazosin 1 prazosin 1 2018-08- Yes Dhillon Unknown Unknown mg capsule mg capsule 08-31 Kimberlyn CAMARENA medical medical 2018-08- Yes Dhillon Unknown Unknown marijuana marijuana 08-31 Kimberlyn CAMARENA acetaminoph acetaminoph 2018-08- Yes Dhillon Unknown Unknown en wtih en wtih 08-31 Kimberlyn CAMARENA codeine #3 codeine #3 mycophenola mycophenola 2018-08- Yes Dhillon Unknown Unknown te mofetil te mofetil 08-31 Kimberlyn CAMARENA 500 mg 500 mg tablet tablet zolpidem 10 zolpidem 10 2018-08- Yes Dhillon Unknown Unknown mg tablet mg tablet 08-31 ,Kimberlyn pantoprazol pantoprazol 2018-08- Yes Alejo Unknown Unknown e 40 mg e 40 mg 08-31 ,Kimberlyn tablet,alexx tablet,alexx yed release yed release diphenhydrA diphenhydrA 2018-08- Yes Alejo Unknown Unknown MINE 25 mg MINE 25 mg 08-31 ,Kimberlyn capsule capsule Vital Signs Vital Name Observation Time Observation Value Comments SYSTOLIC mm[Hg] 2019-07-25 18:09:10 126 mm[Hg] mm[Hg] Method: Sit SYSTOLIC mm[Hg] 2019-07-02 18:08:47 140 mm[Hg] mm[Hg] Method: Stand DIASTOLIC mm[Hg] 2019-07-25 18:09:10 72 mm[Hg] mm[Hg] Method: Sit DIASTOLIC mm[Hg] 2019-07-02 18:08:47 80 mm[Hg] mm[Hg] Method: Stand PULSE 2019-07-25 18:09:10 86 /min /min RESP RATE 2019-07-25 18:09:10 18 /min /min TEMP 2019-07-25 18:09:10 97.4 [degF] Procedures This patient has no known procedures. Results This patient has no known results.
--- OUTSIDE RECORDS SUMMARY | 2019-07-29 10:19 | XMS REPORT ---
:1980 Author Name Ly Gentile Address [facility] Unavailable , Care Team Providers Name Role Phone Ly Gentile Unavailable Unavailable Allergies, Adverse Reactions, Alerts Allergy Code CodeSystem Reaction Severity Status Substance nkda RxNorm Active Medications Medication Medication Medication Start Route Dose Status Fill Code CodeSystem Date Instructions RxNorm NoCurrentDosage No NoCurrentFrequency Longer Active Viibryd RxNorm 2018-0 oral 20 mg 1 tablet No Take 1 tablet 4-20 twice a day Longer twice a day Active for 30 day(s) Rexulti RxNorm 2018-0 oral 2 mg tablet No for 30 8-23 Longer day(s) Active prazosin RxNorm 2018-0 oral 2 mg capsule No for 30 3-26 Longer day(s) Active lorazepam RxNorm 2018-0 oral 1 mg 1 tablet No 1 tablet 6-28 twice a day Longer twice a day Active as needed for 30 day(s) gabapentin RxNorm 2018-0 oral 600 mg tablet No for 30 6-25 Longer day(s) Active melatonin RxNorm oral 10 mg 1 tablet at No 1 tablet at bedtime Longer bedtime for Active 30 day(s) zolpidem RxNorm 2018-0 oral 10 mg tablet No for 30 4-20 Longer day(s) Active zolpidem RxNorm 2019-0 oral 10 mg 1 tablet at Active 1 tablet at 4-01 bedtime bedtime for 30 day(s) gabapentin RxNorm 2019-0 oral 600 mg tablet No for 30 4-01 Longer day(s) Active mirtazapine RxNorm 2019-0 oral 15 mg tablet Active for 30 5-30 day(s) lorazepam RxNorm 2019-0 oral 1 mg 1 tablet Active 1 tablet 6-26 twice a day twice a day as needed for 30 day(s) melatonin RxNorm 2019-0 oral 10 mg 1 capsule at Active 1 capsule 7-24 bedtime at bedtime for 30 day(s) Cymbalta RxNorm 2019-0 oral 20 mg Active for 30 7-24 capsule,delayed day(s) release(/EC) Cymbalta RxNorm 2019-0 oral 60 mg Active for 30 6- capsule,delayed day(s) release(DR/EC) Hospital Discharge Medications Medication Direction Start Date Status Indications Fill Instuctions No Discharge Medication Problems Problem Name Code CodeSystem Start Date End Date Status SNOMED-CT 2018-11-11 Active Laboratory Values/Results Test Test Code Code System Actual Result Date LOINC Procedures Procedure Name Code CodeSystem Target Site Date of Procedure SNOMED-CT () 2018-11-21 SNOMED-CT () 2018-12-06 SNOMED-CT () 2018-12-13 SNOMED-CT () 2018-12-28 SNOMED-CT () 2019-01-04 SNOMED-CT () 2019-01-19 SNOMED-CT () 2019-01-30 SNOMED-CT () 2019-02-08 SNOMED-CT () 2019-02-14 SNOMED-CT () 2019-02-15 SNOMED-CT () 2019-02-15 SNOMED-CT () 2019-02-20 SNOMED-CT () 2019-03-08 SNOMED-CT () 2019-03-16 SNOMED-CT () 2019-03-15 SNOMED-CT () 2019-03-28 SNOMED-CT () 2019-04-07 SNOMED-CT () 2019-04-14 Encounter Diagnosis Code CodeSystem Description Date Finding Finding Code Status 73262 CPT Group Visit 2019-02-20 - SNOMED-CT Active 5 Vital Signs Vitals Date Value Immunizations Vaccine Name Vaccine Code CodeSystem Date Status Social History Element Description Start Date End Date Code CodeSystem Description SNOMED-CT Hospital Discharge Instructions Reason For Referral
--- OUTSIDE RECORDS SUMMARY | 2019-07-29 10:19 | XMS REPORT ---
:1980 Author Organization [facility] Care Team Providers Name Role Phone Unavailable Unavailable Unavailable Problems Condition Condition Condition Status Onset Resolution Last Treating Comments Name Details Category Date Date Treatment Clinician Date Pain frequent Pain Mgmt Resolve 2018-082019-07-03 Anita pain d 08-31 12:37:00 (Rusty) 08:45: Bejarano 00 [id number] Respiratory dyspnea Respirator Resolve 2018-082019-07-03 Anita present y d 08-31 12:37:00 (Rusty) 08:45: Bejarano 00 [id number] Endo/Dano diabetic Endo/Dano Resolve 2018-082019-07-03 Anita foot care d 08-31 12:37:00 (Rusty) 08:45: Bejarano 00 [id number] Integument surgical Integument Resolve 2018-082019-07-25 Anita wound d 08-31 09:40:00 (Rusty) present 08:45: Bejarano 00 [id number] Nutrition nutritional Nutrition Resolve 2018-082019-07-03 Anita restriction d 08-31 12:37:00 (Rusty) s 08:45: Bejarano 00 [id number] Elimination urinary Eliminatio Resolve 2018-082019-07-03 Anita incontinenc n d 08-31 12:37:00 (Rusty) e 08:45: Bejarano 00 [id number] Neuro confusion Neuro/Emot Resolve 2018-082019-07-05 Anita present ion d 08-31 12:25:00 (Rusty) 08:45: Bejarano 00 [id number] Neuro anxiety Neuro/Emot Resolve 2018-082019-07-05 Anita present ion d 08-31 12:25:00 (Rusty) 08:45: Bejarano 00 [id number] Neuro depressive Neuro/Emot Resolve 2018-082019-07-05 Anita feelings ion d 08-31 12:25:00 (Rusty) present 08:45: Bejarano 00 [id number] Neuro impaired Neuro/Emot Resolve 2018-082019-07-05 Anita decision-ma ion d 08-31 12:25:00 (Rusty) sumanth 08:45: Bejarano 00 [id number] Activity ADL Activity Resolve 2018-082019-07-05 Anita assistance d 08-31 12:25:00 (Rusty) required 08:45: Bejarano 00 [id number] Activity self-care Activity Resolve 2018-082019-07-05 Anita deficit d 08-31 12:25:00 (Rusty) 08:45: Bejarano 00 [id number] Safety fall risk Safety Resolve 2018-082019-07-03 Anita factor d 08-31 12:37:00 (Rusty) present 08:45: Bejarano 00 [id number] Safety risk for Safety Resolve 2018-082019-07-03 Naita hospitaliza d 08-31 12:37:00 (Rusty) tion 08:45: Bejarano 00 [id number] Medication oral med Meds Resolve 2018-082019-07-03 Anita assistance d 08-31 12:37:00 (Rusty) required 08:45: Bejarano 00 [id number] Medication injectable Meds Resolve 2018-082019-07-03 Anita med d 08-31 12:37:00 (Rusty) assistance 08:45: Bejarano required 00 [id number] Endo/Dano anti-coagul Endo/Dano Resolve 2018-082019-07-03 Lu ation [...] 40 mg e 40 mg 08-31 ,Kimberlyn tablet,aelxx tablet,alexx yed release yed release diphenhydrA diphenhydrA [...]
--- OUTSIDE RECORDS SUMMARY | 2019-07-29 10:19 | XMS REPORT ---
:1980 Author Organization [facility] Care Team Providers Name Role Phone Unavailable Unavailable Unavailable Problems Condition Condition Condition Status Onset Resolution Last Treating Comments Name Details Category Date Date Treatment Clinician Date Pain frequent Pain Mgmt Resolve 2018-082019-07-03 Anita pain d 08-31 12:37:00 (Rusty) 08:45: Bejarano 00 [id number] Respiratory dyspnea Respirator Resolve 2018-082019-07-03 Anita present y d 08-31 12:37:00 (Rusty) 08:45: Bejarano 00 [id number] Endo/Dano diabetic Endo/Dano Resolve 2018-082019-07-03 Anita foot care d 08-31 12:37:00 (Rusty) 08:45: Bejarano 00 [id number] Integument surgical Integument Resolve 2018-082019-07-25 Anita wound d 08-31 09:40:00 (Rusty) present 08:45: Bejarano 00 [id number] Nutrition nutritional Nutrition Resolve 2018-082019-07-03 Anita restriction d 08-31 12:37:00 (Rusty) s 08:45: Bejarano 00 [id number] Elimination urinary Eliminatio Resolve 2018-082019-07-03 Anita incontinenc n d 08-31 12:37:00 (Rusty) e 08:45: Bejarano 00 [id number] Neuro confusion Neuro/Emot Resolve 2018-082019-07-05 Anita present ion d 08-31 12:25:00 (Rusty) 08:45: Bejarano 00 [id number] Neuro anxiety Neuro/Emot Resolve 2018-082019-07-05 Anita present ion d 08-31 12:25:00 (Rusty) 08:45: Bejarano 00 [id number] Neuro depressive Neuro/Emot Resolve 2018-082019-07-05 Antia feelings ion d 08-31 12:25:00 (Rusty) present 08:45: Bejarano 00 [id number] Neuro impaired Neuro/Emot Resolve 2018-082019-07-05 Anita decision-ma ion d 08-31 12:25:00 (Rusty) sumanth 08:45: Bejarano 00 [id number] Activity ADL Activity Resolve 2018-082019-07-05 Anita assistance d 08-31 12:25:00 (Rusty) required 08:45: Bejarano 00 [id number] Activity self-care Activity Resolve 2018-082019-07-05 Anita deficit d 08-31 12:25:00 (Rusty) 08:45: Bejarano 00 [id number] Safety fall risk Safety Resolve 2018-082019-07-03 Anita factor d 08-31 12:37:00 (Rusty) present 08:45: Bejarano 00 [id number] Safety risk for Safety Resolve 2018-082019-07-03 Anita hospitaliza d 08-31 12:37:00 (Rusty) tion 08:45: Bejarano 00 [id number] Medication oral med Meds Resolve 2018-082019-07-03 Anita assistance d 08-31 12:37:00 (Rusty) required 08:45: Bejarano 00 [id number] Medication injectable Meds Resolve 2018-082019-07-03 Anita med d 08-31 12:37:00 (Rusty) assistance 08:45: Bejarano required 00 [id number] Endo/Dano anti-coagul Endo/Dano Resolve 2018-082019-07-03 Lu ation d 09-02 12:37:00 Nguyen therapy 12:37: 00 Endo/Dano anti-coagul Endo/Daon Resolve 2018-082019-07-05 Lu ation d 09-04 12:25:00 [...]
--- OUTSIDE RECORDS SUMMARY | 2019-07-29 10:19 | XMS REPORT ---
:1980 Author Organization [facility] Care Team Providers Name Role Phone Unavailable Unavailable Unavailable Problems Condition Condition Condition Status Onset Resolution Last Treating Comments Name Details Category Date Date Treatment Clinician Date Pain frequent Pain Mgmt Resolve 2018-082019-07-03 Anita pain d 08-31 12:37:00 (Rusty) 08:45: Bejarano 00 [id number] Respiratory dyspnea Respirator Resolve 2018-082019-07-03 Anita present y d 08-31 12:37:00 (Rusty) 08:45: Bejarano 00 [id number] Endo/Dano diabetic Endo/Dano Resolve 2018-082019-07-03 Anita foot care d 08-31 12:37:00 (Rusty) 08:45: Bejarano 00 [id number] Integument surgical Integument Active 2018-08 Anita wound 08-31 (Rusty) present 08:45: Bejarano 00 [id number] Nutrition nutritional Nutrition Resolve 2018-082019-07-03 Anita restriction d 08-31 12:37:00 (Rusty) s 08:45: Bejarano 00 [id number] Elimination urinary Eliminatio Resolve 2018-082019-07-03 Anita incontinenc n d 08-31 12:37:00 (Rusty) e 08:45: Bejarano 00 [id number] Neuro confusion Neuro/Emot Resolve 2018-082019-07-05 Anita present ion d 08-31 12:25:00 (Rusty) 08:45: Bejarano 00 [id number] Neuro anxiety Neuro/Emot Resolve 2018-082019-07-05 Anita present ion d 08-31 12:25:00 (Rusty) 08:45: Bejarano 00 [id number] Neuro depressive Neuro/Emot Resolve 2018-082019-07-05 Anita feelings ion d 08-31 12:25:00 (Rusty) present 08:45: Bejarano 00 [id number] Neuro impaired Neuro/Emot Resolve 2018-082019-07-05 Anita decision-ma ion d 08-31 12:25:00 (Rusty) sumanth 08:45: Bejarano 00 [id number] Activity ADL Activity Resolve 2018-082019-07-05 Anita assistance d 08-31 12:25:00 (Rusty) required 08:45: Bejarano 00 [id number] Activity self-care Activity Resolve 2018-082019-07-05 Anita deficit d 08-31 12:25:00 (Rusty) 08:45: Bejarano 00 [id number] Safety fall risk Safety Resolve 2018-082019-07-03 Anita factor d 08-31 12:37:00 (Rusty) present 08:45: Bejarano 00 [id number] Safety risk for Safety Resolve 2018-082019-07-03 Anita hospitaliza d 08-31 12:37:00 (Rusty) tion 08:45: Bejarano 00 [id number] Medication oral med Meds Resolve 2018-082019-07-03 Anita assistance d 08-31 12:37:00 (Rusty) required 08:45: Bejarano 00 [id number] Medication injectable Meds Resolve 2018-082019-07-03 Anita med d 08-31 12:37:00 (Rusty) assistance 08:45: Bejarano required 00 [id number] Endo/Dano anti-coagul Endo/Dano Resolve 2018-082019-07-03 Luguevara mendoza d 09-02 12:37:00 Nguyen therapy 12:37: 00 Endo/Dano anti-coagul Endo/Dano Resolve 2018-082019-07-05 Lu ation d 09-04 12:25:00 Nguyen therapy 12:25: 00 Safety risk for Safety Resolve 2018-082019-07-05 Lu hospitaliza d 09-04 12:25:00 Nguyen tion 12:25: 00 Endo/Dano anti-coagul Endo/Dano Resolve 2018-082019-07-17 Lu ation d 09-11 11:00:00 Nguyen therapy 10:36: 00 Neuro impaired Neuro/Emot Resolve 2018-082019-07-17 Lu decision-ma ion d 09-11 11:00:00 Patrick sumanth 10:36: 00 Safety risk for Safety Resolve 2018-082019-07-17 [facility] d 09-11 11:00:00 Nguyen tion 10:36: 00 Allergies, Adverse Reactions, [...] mg 10 mg 08-31 ,Kimberlyn capsule capsule melatonin melatonin 2018-08 Yes Dhillon Unknown Unknown 10 mg 10 mg 08-31 MD,Kimberlyn tablet tablet albuterol albuterol 2018-08 Yes Dhillon Unknown Unknown sulfate HFA sulfate HFA 08-31 ,Kimberlyn 90 90 mcg/actuati mcg/actuati on aerosol on [...] mg 100 mg 08-31 MD,Kimberlyn tablet tablet metoprolol metoprolol 2018-08 Yes Dhillon Unknown Unknown tartrate tartrate 08-31 MD,Kimberlyn 100 mg 100 mg tablet tablet Naprosyn Naprosyn 2018-08 Yes Dhillon Unknown Unknown 500 mg 500 mg 08-31 MD,Kimberlyn tablet tablet docusate docusate 2018-08 Yes Dhillon Unknown Unknown sodium 100 sodium 100 08-31 MD,Kimberlyn mg capsule mg capsule etonogestre etonogestre 2018-08 Yes Dhillon Unknown Unknown l 68 mg l 68 mg 08-31 ,Kimberlyn subdermal subdermal implant implant atorvastati atorvastati 2018-08 Yes Dhillon Unknown Unknown n 80 mg n 80 mg 08-31 MD,Kimberlyn tablet tablet dicyclomine dicyclomine 2018-08 Yes Dhillon Unknown Unknown 10 mg 10 mg 08-31 MD,Kimberlyn capsule capsule EPINEPHrine EPINEPHrine 2018-08 Yes Dhillon Unknown Unknown 0.3 mg/0.3 0.3 mg/0.3 08-31 ,Kimberlyn mL mL injection, injection, auto-inject auto-inject or or Tums Tums 2018-08 Yes Dhillon Unknown Unknown Freshers Freshers 08-31 ,Kimberlyn 200 mg 200 mg calcium calcium (500 mg) (500 mg) chewable chewable tablet tablet cetirizine cetirizine 2018-08 Yes Dhillon Unknown Unknown 10 mg 10 mg 08-31 MD,Kimberlyn capsule capsule butalbital- butalbital- 2018-08 Yes Dhillon Unknown Unknown acetaminoph acetaminoph 08-31 MD,Kimberlyn en 50 en 50 mg-325 mg mg-325 mg tablet tablet Systane Systane 2018-08 Yes Dhillon Unknown Unknown (PF) 0.4 (PF) 0.4 08-31 MD,Kimberlyn %-0.3 % eye %-0.3 % eye drops in a drops in a dropperette dropperette DULoxetine DULoxetine 2018-08 Yes Dhillon Unknown Unknown 60 mg 60 mg 08-31 MD,Kimberlyn capsule,del capsule,del ayed ayed release release DULoxetine DULoxetine 2018-08 Yes Dhillon Unknown Unknown 20 mg 20 mg 08-31 ,Kimberlyn capsule,del capsule,del ayed ayed release release dapsone 25 dapsone 25 2018-08 Yes Dhillon Unknown Unknown mg tablet mg tablet 08-31 ,Kimberlyn gabapentin gabapentin 2018-08 Yes Dhillon Unknown Unknown [...] auto-inject auto-inject or or prazosin 1 prazosin 2018-08 Yes Dhillon Unknown Unknown mg capsule mg capsule 08-31 ,Kimberlyn medical medical 2018-08 Yes Dhillon Unknown Unknown marijuana marijuana 08-31 ,Kimberlyn acetaminoph acetaminoph 2018-08 Yes Dhillon Unknown Unknown [...] Observation Time Observation Value Comments SYSTOLIC mm[Hg] 2019-07-17 18:09:02 128 mm[Hg] mm[Hg] Method: Sit SYSTOLIC mm[Hg] 2019-07-02 18:08:47 140 mm[Hg] mm[Hg] Method: Stand DIASTOLIC mm[Hg] 2019-07-17 18:09:02 70 mm[Hg] mm[Hg] Method: Sit DIASTOLIC mm[Hg] 2019-07-02 18:08:47 80 mm[Hg] mm[Hg] Method: Stand PULSE 2019-07-17 18:09:02 75 /min /min RESP RATE 2019-07-17 18:09:02 18 /min /min TEMP 2019-07-17 18:09:02 97.1 [degF] Procedures This patient has no known procedures. Results This patient has no known results.
--- OUTSIDE RECORDS SUMMARY | 2019-07-29 10:19 | XMS REPORT ---
:1980 Author Organization [facility] Care Team Providers Name Role Phone Unavailable Unavailable Unavailable Problems Condition Condition Condition Status Onset Resolution Last Treating Comments Name Details Category Date Date Treatment Clinician Date Pain frequent Pain Mgmt Resolve 2018-082019-07-03 Anita pain d 08-31 12:37:00 (Rusty) 08:45: Bejarano 00 [id number] Respiratory dyspnea Respirator Resolve 2018-082019-07-03 Anita present y d 08-31 12:37:00 (Rusty) 08:45: Bejarano 00 [id number] Endo/Dano diabetic Endo/Dano Resolve 2018-082019-07-03 Anita foot care d 08-31 12:37:00 (Rusty) 08:45: Bejarano 00 [id number] Integument surgical Integument Active 2018-08 Anita wound 08-31 (Rusty) present 08:45: Bejarano 00 [id number] Nutrition nutritional Nutrition Resolve 2018-082019-07-03 Anita restriction d 08-31 12:37:00 (Rusty) s 08:45: Bejarano 00 [id number] Elimination urinary Eliminatio Resolve 2018-082019-07-03 Anita incontinenc n d 08-31 12:37:00 (Rusty) e 08:45: Bejarano 00 [id number] Neuro confusion Neuro/Emot Resolve 2018-082019-07-05 Anita present ion d 08-31 12:25:00 (Rusty) 08:45: Bejarano 00 [id number] Neuro anxiety Neuro/Emot Resolve 2018-082019-07-05 Anita present ion d 08-31 12:25:00 (Rusty) 08:45: Bejarano 00 [id number] Neuro depressive Neuro/Emot Resolve 2018-082019-07-05 Anita feelings ion d 08-31 12:25:00 (Rusty) present 08:45: Bejarano 00 [id number] Neuro impaired Neuro/Emot Resolve 2018-082019-07-05 Anita decision-ma ion d 08-31 12:25:00 (Rusty) sumanth 08:45: Bejarano 00 [id number] Activity ADL Activity Resolve 2018-082019-07-05 Anita assistance d 08-31 12:25:00 (Rusty) required 08:45: Bejarano 00 [id number] Activity self-care Activity Resolve 2018-082019-07-05 Anita deficit d 08-31 12:25:00 (Rusty) 08:45: Bejarano 00 [id number] Safety fall risk Safety Resolve 2018-082019-07-03 Anita factor d 08-31 12:37:00 (Rusty) present 08:45: Bejarano 00 [id number] Safety risk for Safety Resolve 2018-082019-07-03 Anita hospitaliza d 08-31 12:37:00 (Rusty) tion 08:45: Bejarano 00 [id number] Medication oral med Meds Resolve 2018-082019-07-03 Anita assistance d 08-31 12:37:00 (Rusty) required 08:45: Bejarano 00 [id number] Medication injectable Meds Resolve 2018-082019-07-03 Anita med d 08-31 12:37:00 (Rusty) assistance 08:45: Bejarano required 00 [id number] Endo/Dano anti-coagul Endo/Dano Resolve 2018-082019-07-03 Luguevara mendoza d 09-02 12:37:00 Gnuyen therapy 12:37: 00 Endo/Dano anti-coagul Endo/Dano Resolve [...] 00 Safety risk for Safety Resolve 2018-082019-07-17 [facility] d 09-11 11:00:00 Nguyen tion 10:36: 00 Allergies, Adverse Reactions, Alerts Allergy Name Allergy Status Severity Reaction(s) Onset Inactive Treating Comments Type Date Date Clinician asenapine Base Active Unknown Reaction Carlota Beam Ingredient Unknown 04-27 bee venom Base Active Unknown Reaction Carlota Beam protein Ingredient Unknown 04-27 (honey bee) Paxil Medication Active Unknown Reaction Carolta Beam Name ID Unknown 04-27 Sulfa Allergen [...] mg tablet tablet Systane Systane 2018-08 Yes Dhlilon Unknown Unknown (PF) 0.4 (PF) 0.4 08-31 [...]
--- OUTSIDE RECORDS SUMMARY | 2019-07-29 10:19 | XMS REPORT ---
:1980 Author Organization [facility] Care Team Providers Name Role Phone Unavailable Unavailable Unavailable Problems Condition Condition Condition Status Onset Resolution Last Treating Comments Name Details Category Date Date Treatment Clinician Date Pain frequent Pain Mgmt Resolve 2018-082019-07-03 Anita pain d 08-31 12:37:00 (Rusty) 08:45: Bejarano 00 [id number] Respiratory dyspnea Respirator Resolve 2018-082019-07-03 Anita present y d 08-31 12:37:00 (Rusty) 08:45: Bejarano 00 [id number] Endo/Dano diabetic Endo/Dano Resolve 2018-082019-07-03 Anita foot care d 08-31 12:37:00 (Rusty) 08:45: Bejarano 00 [id number] Integument surgical Integument Active 2018-08 Anita wound 08-31 (Rusty) present 08:45: Bejarano 00 [id number] Nutrition nutritional Nutrition Resolve 2018-082019-07-03 Anita restriction d 08-31 12:37:00 (Rusty) s 08:45: Bejarano 00 [id number] Elimination urinary Eliminatio Resolve 2018-082019-07-03 Anita incontinenc n d 08-31 12:37:00 (Rusty) e 08:45: Bejarano 00 [id number] Neuro confusion Neuro/Emot Resolve 2018-082019-07-05 Anita present ion d 08-31 12:25:00 (Rusty) 08:45: Bejarano 00 [id number] Neuro anxiety Neuro/Emot Resolve 2018-082019-07-05 Anita present ion d 08-31 12:25:00 (Rusty) 08:45: Bejarano 00 [id number] Neuro depressive Neuro/Emot Resolve 2018-082019-07-05 Anita feelings ion d 08-31 12:25:00 (Rusty) present 08:45: Bejarano 00 [id number] Neuro impaired Neuro/Emot Resolve 2018-082019-07-05 Anita decision-ma ion d 08-31 12:25:00 (Rusty) sumanth 08:45: Bejarano 00 [id number] Activity ADL Activity Resolve 2018-082019-07-05 Anita assistance d 08-31 12:25:00 (Rusty) required 08:45: Bejarano 00 [id number] Activity self-care Activity Resolve 2018-082019-07-05 Anita deficit d 08-31 12:25:00 (Rusty) 08:45: Bejarano 00 [id number] Safety fall risk Safety Resolve 2018-082019-07-03 Anita factor d 08-31 12:37:00 (Rusty) present 08:45: Bejarano 00 [id number] Safety risk for Safety Resolve 2018-082019-07-03 Anita hospitaliza d 08-31 12:37:00 (Rusty) tion 08:45: Bejarano 00 [id number] Medication oral med Meds Resolve 2018-082019-07-03 Anita assistance d 08-31 12:37:00 (Rusty) required 08:45: Bejarano 00 [id number] Medication injectable Meds Resolve 2018-082019-07-03 Anita med d 08-31 12:37:00 (Rusty) assistance 08:45: Bejarano required 00 [id number] Endo/Dano anti-coagul Endo/Dano Resolve 2018-082019-07-03 Lu ation [...]
--- OUTSIDE RECORDS SUMMARY | 2019-07-29 10:19 | XMS REPORT ---
:1980 Author Organization [facility] Care Team Providers Name Role Phone Unavailable Unavailable Unavailable Problems Condition Condition Condition Status Onset Resolution Last Treating Comments Name Details Category Date Date Treatment Clinician Date Pain frequent Pain Mgmt Resolve 2018-082019-07-03 Anita pain d 08-31 12:37:00 (Rusty) 08:45: Bejarano 00 [id number] Respiratory dyspnea Respirator Resolve 2018-082019-07-03 Anita present y d 08-31 12:37:00 (Rusty) 08:45: Bejarano 00 [id number] Endo/Dano diabetic Endo/Dano Resolve 2018-082019-07-03 Anita foot care d 08-31 12:37:00 (Rusty) 08:45: Bejarano 00 [id number] Integument surgical Integument Active 2018-08 Anita wound 08-31 (Rutsy) present 08:45: Bejarano 00 [id number] Nutrition nutritional Nutrition Resolve 2018-082019-07-03 Anita restriction d 08-31 12:37:00 (Rusty) s 08:45: Bejarano 00 [id number] Elimination urinary Eliminatio Resolve 2018-082019-07-03 Anita incontinenc n d 08-31 12:37:00 (Rusty) e 08:45: Bejarano 00 [id number] Neuro confusion Neuro/Emot Resolve 2018-082019-07-05 Anita present ion d 08-31 12:25:00 (Rusty) 08:45: Bejarano 00 [id number] Neuro anxiety Neuro/Emot Resolve 2018-082019-07-05 Anita present ion d 08-31 12:25:00 (Rusty) 08:45: Bejarano 00 [id number] Neuro depressive Neuro/Emot Resolve 2018-082019-07-05 Anita feelings ion d 08-31 12:25:00 (Rusty) present 08:45: Bejarano 00 [id number] Neuro impaired Neuro/Emot Resolve 2018-082019-07-05 Anita decision-ma ion d 08-31 12:25:00 (Rusty) sumanth 08:45: Bejarano 00 [id number] Activity ADL Activity Resolve 2018-082019-07-05 Anita assistance d 08-31 12:25:00 (Rusty) required 08:45: Bejarano 00 [id number] Activity self-care Activity Resolve 2018-082019-07-05 Anita deficit d 08-31 12:25:00 (Rusty) 08:45: Bejarano 00 [id number] Safety fall risk Safety Resolve 2018-082019-07-03 Anita factor d 08-31 12:37:00 (Rusty) present 08:45: Bejarano 00 [id number] Safety risk for Safety Resolve 2018-082019-07-03 Anita hospitaliza d 08-31 12:37:00 (Rusty) tion 08:45: Bejarano 00 [id number] Medication oral med Meds Resolve 2018-082019-07-03 Anita assistance d 08-31 12:37:00 (Rusty) required 08:45: Bejarano 00 [id number] Medication injectable Meds Resolve 2018-082019-07-03 Anita med d 08-31 12:37:00 (Rusty) assistance 08:45: Bejarano required 00 [id number] Endo/Dano anti-coagul Endo/Dano Resolve 2018-082019-07-03 Lu mendoza d 09-02 12:37:00 Nguyen therapy 12:37: 00 Endo/Dano anti-coagul Endo/Dano Resolve 2018-082019-07-05 Lu mendoza d 09-04 12:25:00 Nguyen therapy 12:25: 00 Safety risk for Safety Resolve 2018-082019-07-05 Lu hospitaliza d 09-04 12:25:00 Nguyen tion 12:25: 00 Allergies, Adverse Reactions, Alerts Allergy Name Allergy Status Severity Reaction(s) Onset Inactive Treating Comments Type Date Date Clinician asenapine Base Active Unknown Reaction Carlota Beam Ingredient Unknown 04-27 bee venom Base Active Unknown Reaction Carolta Beam protein Ingredient Unknown 04-27 (honey bee) [...] Unknown mg tablet mg tablet 08-31 MD,Kimberlyn gabapentin gabapentin 2018-08 Yes Dhillon Unknown Unknown 600 mg 600 mg 08-31 MD,Kimberlyn tablet tablet gabapentin gabapentin 2018-08 Yes Dhillon Unknown Unknown 600 mg 600 mg 08-31 MD,Kimberlyn tablet tablet lispro lispro 2018-08 Yes Dhillon Unknown Unknown insulin insulin 08-31 ,Kimberlyn Aimovig Aimovig 2018-08 Yes Dhillon Unknown Unknown Autoinjecto Autoinjecto 08-31 ,Kimberlyn r 70 mg/mL r 70 mg/mL subcutaneou [...] Unknown Unknown te mofetil te mofetil 08-31 ,Kimberlyn 500 mg 500 mg tablet tablet zolpidem 10 zolpidem 10 2018-08 Yes Alejo Unknown Unknown mg tablet mg tablet 08-31 ,Kimberlyn pantoprazol pantoprazol 2018-08 Yes Dhillon Unknown Unknown e 40 mg e 40 mg 08-31 ,Kimberlyn tablet,alexx tablet,alexx yed release yed release diphenhydrA diphenhydrA 2018-08 Yes Dhillon Unknown Unknown MINE 25 mg MINE 25 mg 08-31 ,Kimberlyn capsule capsule Vital Signs Vital Name Observation Time Observation Value Comments SYSTOLIC mm[Hg] 2019-07-05 18:08:50 128 mm[Hg] mm[Hg] Method: Sit SYSTOLIC mm[Hg] 2019-07-02 18:08:47 140 mm[Hg] mm[Hg] Method: Stand DIASTOLIC mm[Hg] 2019-07-05 18:08:50 74 mm[Hg] mm[Hg] Method: Sit DIASTOLIC mm[Hg] 2019-07-02 18:08:47 80 mm[Hg] mm[Hg] Method: Stand PULSE 2019-07-05 18:08:50 88 /min /min RESP RATE 2019-07-05 18:08:50 18 /min /min TEMP 2019-07-05 18:08:50 97.8 [degF] Procedures This patient has no known procedures. Results This patient has no known results.
--- OUTSIDE RECORDS SUMMARY | 2019-07-29 10:20 | XMS REPORT ---
:1980 Author Organization [facility] Care Team Providers Name Role Phone Unavailable Unavailable Unavailable Problems Condition Condition Condition Status Onset Resolution Last Treating Comments Name Details Category Date Date Treatment Clinician Date Pain frequent Pain Mgmt Resolve 2018-082019-07-03 Anita pain d 08-31 12:37:00 (Rusty) 08:45: Bejarano 00 [id number] Respiratory dyspnea Respirator Resolve 2018-082019-07-03 Anita present y d 08-31 12:37:00 (Rusty) 08:45: Bejarano 00 [id number] Endo/Dano diabetic Endo/Dano Resolve 2018-082019-07-03 Anita foot care d 08-31 12:37:00 (Rusty) 08:45: Bejarano 00 [id number] Integument surgical Integument Active 2018-08 Anita wound 08-31 (Rusty) present 08:45: Bejarano 00 [id number] Nutrition nutritional Nutrition Resolve 2018-082019-07-03 Anita restriction d 08-31 12:37:00 (Rusty) s 08:45: Bejarano 00 [id number] Elimination urinary Eliminatio Resolve 2018-082019-07-03 Anita incontinenc n d 08-31 12:37:00 (Rusty) e 08:45: Bejarano 00 [id number] Neuro confusion Neuro/Emot Resolve 2018-082019-07-05 Anita present ion d 08-31 12:25:00 (Rusty) 08:45: Bejarano 00 [id number] Neuro anxiety Neuro/Emot Resolve 2018-082019-07-05 Anita present ion d 08-31 12:25:00 (Rusty) 08:45: Bejarano 00 [id number] Neuro depressive Neuro/Emot Resolve 2018-082019-07-05 Anita feelings ion d 08-31 12:25:00 (Rusty) present 08:45: Bejarano 00 [id number] Neuro impaired Neuro/Emot Resolve 2018-082019-07-05 Anita decision-ma ion d 08-31 12:25:00 (Rusty) sumanth 08:45: Bejarano 00 [id number] Activity ADL Activity Resolve 2018-082019-07-05 Anita assistance d 08-31 12:25:00 (Rusty) required 08:45: Bejarano 00 [id number] Activity self-care Activity Resolve 2018-082019-07-05 Anita deficit d 08-31 12:25:00 (Rusty) 08:45: Bejarano 00 [id number] Safety fall risk Safety Resolve 2018-082019-07-03 Anita factor d 08-31 12:37:00 (Rusty) present 08:45: Bejarano 00 [id number] Safety risk for Safety Resolve 2018-082019-07-03 Anita hospitaliza d 08-31 12:37:00 (Rusty) tion 08:45: Bejarano 00 [id number] Medication oral med Meds Resolve 2018-082019-07-03 Anita assistance d 08-31 12:37:00 (Rusty) required 08:45: Bejarano 00 [id number] Medication injectable Meds Resolve 2018-082019-07-03 Anita med d 08-31 12:37:00 (Rusty) assistance 08:45: Bejarano required 00 [id number] Endo/Dano anti-coagul Endo/Dano Resolve 2018-082019-07-03 Lu mendoza [...]
--- OUTSIDE RECORDS SUMMARY | 2019-07-29 10:20 | XMS REPORT ---
:1980 Author Organization [facility] Care Team Providers Name Role Phone Unavailable Unavailable Unavailable Problems Condition Condition Condition Status Onset Resolution Last Treating Comments Name Details Category Date Date Treatment Clinician Date Pain frequent Pain Mgmt Resolve 2018-082019-07-03 Anita pain d 08-31 12:37:00 (Rusty) 08:45: Bejarano 00 [id number] Respiratory dyspnea Respirator Resolve 2018-082019-07-03 Anita present y d 08-31 12:37:00 (Rusty) 08:45: Bejarano 00 [id number] Endo/Dano diabetic Endo/Dano Resolve 2018-082019-07-03 Anita foot care d 08-31 12:37:00 (Rusty) 08:45: Bejarano 00 [id number] Integument surgical Integument Active 2018-08 Anita wound 08-31 (Rusty) present 08:45: Bejarano 00 [id number] Nutrition nutritional Nutrition Resolve 2018-082019-07-03 Anita restriction d 08-31 12:37:00 (Rusty) s 08:45: Bejarano 00 [id number] Elimination urinary Eliminatio Resolve 2018-082019-07-03 Anita incontinenc n d 08-31 12:37:00 (Rusty) e 08:45: Bejarano 00 [id number] Neuro confusion Neuro/Emot Active 2018-08 Anita present ion 08-31 (Rusty) 08:45: Bejarano 00 [id number] Neuro anxiety Neuro/Emot Active 2018-08 Anita present ion 08-31 (Rusty) 08:45: Bejarano 00 [id number] Neuro depressive Neuro/Emot Active 2018-08 Anita feelings ion 08-31 (Rusty) present 08:45: Bejarano 00 [id number] Neuro impaired Neuro/Emot Active 2018-08 Anita decision-ma ion 08-31 (Rusty) sumanth 08:45: Bejarano 00 [id number] Activity ADL Activity Active 2018-08 Anita assistance 08-31 (Rusty) required 08:45: Bejarano 00 [id number] Activity self-care Activity Active 2018-08 Anita deficit 08-31 (Rusty) 08:45: Bejarano 00 [id number] Safety fall risk Safety Resolve 2018-082019-07-03 Anita factor d 08-31 12:37:00 (Rusty) present 08:45: Bejarano 00 [id number] Safety risk for Safety Resolve 2018-082019-07-03 Anita hospitaliza d 08-31 12:37:00 (Rusty) tion 08:45: Bejarano 00 [id number] Medication oral med Meds Resolve 2018-082019-07-03 Anita assistance d 08-31 12:37:00 (Rusty) required 08:45: Bejarano 00 [id number] Medication injectable Meds Resolve 2018-082019-07-03 Anita med d 08-31 12:37:00 (Rusty) assistance 08:45: Bejarano required 00 [id number] Endo/Dano anti-coagul Endo/Dano Resolve 2018-082019-07-03 Lu ation d 09-02 12:37:00 Nguyen therapy 12:37: 00 Allergies, Adverse Reactions, Alerts Allergy Name [...] Unknown 04-27 nalbuphine Base Active Unknown Reaction Carltoa Beam Ingredient Unknown 9-05 Medications Ordered Filled Start Stop Current Ordering Indication Dosage Frequency Signature Comments Components Medication Medication Date Date Medication? Clinician (SIG) Name Name loratadine loratadine 2018-08 Yes Dhillon Unknown Unknown 10 mg 10 mg 08-31 ,Kimberlyn capsule capsule melatonin melatonin 2018-08 Yes Dhillon Unknown Unknown 10 mg 10 mg 08-31 ,Kimberlyn tablet tablet albuterol albuterol 2018-08 Yes Dhillon Unknown Unknown sulfate HFA sulfate HFA 08-31 ,Kimberlyn 90 90 mcg/actuati mcg/actuati on aerosol on aerosol inhaler inhaler loperamide loperamide 2018-08 Yes Dhillon Unknown Unknown 2 mg 2 mg 08-31 ,Kimberlyn capsule capsule LORazepam 1 LORazepam 1 2018-08 Yes Dhillon Unknown Unknown mg tablet mg tablet 08-31 ,Kimberlyn mirtazapine mirtazapine 2018-08 Yes Dhillon Unknown Unknown 15 mg 15 mg 08-31 ,Kimberlyn tablet tablet spironolact spironolact 2018-08 Yes Dhillon Unknown Unknown one 50 mg one 50 mg 08-31 ,Kimberlyn tablet tablet SUMAtriptan SUMAtriptan 2018-08 Yes Dhillon Unknown Unknown 100 mg 100 mg 08-31 ,Kimberlyn tablet tablet topiramate topiramate 2018-08 Yes Dhillon [...] Unknown Unknown 0.3 mg/0.3 0.3 mg/0.3 08-31 Kimberlyn CAMARENA mL mL injection, injection, auto-inject auto-inject or or Tums Tums 2018-08 Yes Dhillon Unknown Unknown Freshers Freshers 08-31 Kimberlyn CAMARENA 200 mg 200 mg calcium calcium (500 mg) (500 mg) chewable chewable tablet tablet cetirizine cetirizine 2018-08 Yes Dhillon Unknown Unknown 10 mg 10 mg 08-31 Kimberlyn CAMARENA capsule capsule butalbital- butalbital- 2018-08 Yes Dhillon [...] Unknown Unknown 60 mg 60 mg 08-31 Kimberlyn CAMARENA capsule,del capsule,del ayed ayed release release DULoxetine DULoxetine 2018-08 Yes Dhillon Unknown Unknown 20 mg 20 mg 08-31 Kimberlyn CAMARENA capsule,del capsule,del ayed ayed release release dapsone 25 dapsone 25 2018-08 Yes Dhillon Unknown Unknown mg tablet mg tablet 08-31 Kimberlyn CAMARENA gabapentin gabapentin 2018-08 Yes Dhillon Unknown Unknown 600 mg 600 mg 08-31 Kimberlyn CAMARENA tablet tablet gabapentin gabapentin 2018-08 Yes Dhillon Unknown Unknown 600 mg 600 mg 08-31 Kimberlyn CAMARENA tablet tablet lispro lispro 2018-08 Yes Dhillon Unknown Unknown insulin insulin 08-31 Kimberlyn CAMARENA Aimovig Aimovig 2018-08 Yes Dhillon Unknown Unknown [...] tablet zolpidem 10 zolpidem 10 2018-08 Yes Dhillon Unknown Unknown mg tablet mg tablet 08-31 ,Kimberlyn pantoprazol pantoprazol 2018-08 Yes Dhillon Unknown Unknown e 40 mg e 40 mg 08-31 ,Kimberlyn tablet,alexx tablet,alexx yed release yed release diphenhydrA diphenhydrA 2018-08 Yes Dhillon Unknown Unknown MINE 25 mg MINE 25 mg 08-31 ,Kimberlyn capsule capsule Vital Signs Vital Name Observation Time Observation Value Comments SYSTOLIC mm[Hg] 2019-07-03 18:08:48 118 mm[Hg] mm[Hg] Method: Sit SYSTOLIC mm[Hg] 2019-07-02 18:08:47 140 mm[Hg] mm[Hg] Method: Stand DIASTOLIC mm[Hg] 2019-07-03 18:08:48 72 mm[Hg] mm[Hg] Method: Sit DIASTOLIC mm[Hg] 2019-07-02 18:08:47 80 mm[Hg] mm[Hg] Method: Stand PULSE 2019-07-03 18:08:48 70 /min /min RESP RATE 2019-07-03 18:08:48 18 /min /min TEMP 2019-07-03 18:08:48 96.8 [degF] Procedures This patient has no known procedures. Results This patient has no known results.
--- OUTSIDE RECORDS SUMMARY | 2019-07-29 10:20 | XMS REPORT | Continuity of Care Document ---
:1980 External Reference #:[id number] Author Name Gianna Lopez M.D., FACP (transmitted by agent of provider Eva Griffin) Address [address] [place] [address] Care Team Providers Name Role Phone Mike Maradiaga MD - Rheumatology Care Team Information Gang Punch Operator Patel Bhat MD - Gastroenterology Care Team Information Gang Punch Operator [phone] Abad Dempsey MD - Dermatology Care Team Information Gang Punch Operator [facility] - Gynecology Care Team Information Gang Punch Operator [phone] Vinnie Gunderson MD - Obstetrics & Care Team Information Gang Punch Operator Gynecology Kimberlyn Dhillon MD - Internal Care Team Information Gang Punch Operator [phone] Medicine Leatha Vanegas M.D. 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 Suspension and swallow for 10 days Medical Compression as needed Dx 1units I83.93 Kimberlynjoann Dhillon, 02/21/2019 Stockings/Female/15-2 i83.93 M.D. 0MMHG/Knee/MD/Long Misc Basaglar Kwikpen 36 units once 15ml Spencer Fabian MD 01/05/2019 daily in case of 100Unit/ML Solution pump failure. Pen-Inject Distilled Water Please provide Jenny 01/03/2019 Liquid with distilled Catr[place]ito, RUNNING SPECIALIST water for use in cpap machine Freestyle [...] 4 1units E11.42 Spencer Fabian MD 10/11/2018 Day/Braggs/Flash times daily with Monitoring System sensor Device Metoprolol Tartrate 1 tablet twice 60tabs Spencer Fabian MD 10/11/2018 daily 100mg Tablets Admelog in pump, max 180 30ml Spencer Fabian MD 10/11/2018 100Unit/ML units/day Solution Minimed Pump replace every 10units E10.65 Spencer Fabian MD 07/08/2018 Stark 3ML other day. dx Res 3ML e10.9 [...] Dhillon, 06/14/2017 10mg Tablets day M.D. Spironolactone Take One Tablet By 90tabs L68.0 Kimberlyn Dhillon, 04/27/2017 50mg Mouth Once Daily M.D. Tablets Atorvastatin Calcium Take One Tablet [...] every Unknown 20mg day Caps DR Coughlin Cephalexin Unknown 500mg Capsules Artificial Tears drops to eyes prn Unknown [...] day x 3 days post op Pen Lee to be used 100units E10.65 Spencer Fabian, [...] Provider Date Triamcinolone (Kenalog) Jak Booker MD 06/08/2019 Injection Triamcinolone (Kenalog) Jak Booker MD 02/10/2019 Injection Triamcinolone (Kenalog) Jak Booker MD 11/10/2018 Injection Triamcinolone (Kenalog) Jak Booker MD 04/21/2018 Injection Triamcinolone (Kenalog) Jak Booker MD 01/11/2018 Injection Triamcinolone (Kenalog) Jak Booker MD 10/14/2017 Injection Triamcinolone (Kenalog) Jak Booker MD 05/07/2017 Injection Immunizations CPT Code Status Date Vaccine Reaction Lot # [id number] Given 06/01/2019 Hepatitis B Vaccine Adult [id number] Dosage 58353 Given 06/01/2019 Influenza Virus Vaccine, Quadrivalent, Split, Im Use 6-35mo 89859 Given 07/18/2018 Pneumococcal Conjugate no immediate reaction [id number] Vaccine 13 Valent For noted Intramuscular Use 97883 Given 05/12/2018 Influenza Virus Vaccine, No immediate reaction [id number] Quadrivalent, Split, noted. Preservative Free 65128 Given 06/14/2017 Tdap - [id number] Tetanus/Diptheria/Acellular Pertussis 95359 Given 06/01/2017 Influenza Virus Vaccine, no reaction noted [id number] Quadrivalent, Split, Preservative Free 48857 Given 04/02/2017 Pneumonia Vaccine Vital Signs Date Vital Result Comment 06/29/2019 1:39pm Height 67 inches 5'7" Weight 344.00 lb Heart Rate 78 /min BP Systolic Sitting 128 mmHg BP Diastolic Sitting 82 mmHg Body Temperature 96.4 F BMI (Body Mass Index) 53.9 kg/m2 06/08/2019 2:17pm Height 67 inches 5'7" Weight 344.00 lb Heart Rate 115 /min BP Systolic 112 mmHg BP Diastolic 62 mmHg Body Temperature 97.7 F Pain Level 7 BMI (Body Mass Index) 53.9 kg/m2 Results Test Acquired Facility Test Result H/L Range Note Date Wound 06/27/2019 [facility] Wound/Misc SEE 1 Culture/Sensi [address] [address] Stain BELOW [phone] Laboratory test 06/27/2019 [facility] MRSA/S Aureus SEE [address] [address] BELOW [phone] Wound 06/25/2019 [facility] Wound/Misc SEE 3, 4 Culture/Sensi [address] [place] [address] Stain BELOW [phone] Laboratory test 06/25/2019 [facility] MRSA/S Aureus SEE [address] [address] BELOW [phone] Laboratory test 04/19/2019 [facility] Point of Care 184 mg/dL High 70-100 [address] [place] [address] [phone] Laboratory test 04/19/2019 [facility] Point of Care 138 mg/dL High 70-100 7 finding 101 [place] [address] [phone] Laboratory test 04/05/2019 [facility] Hemoglobin A1c 5.8 % High 4.0-5.[address] (Glyco HGB) [place] [address] [phone] Laboratory test 03/27/2019 [facility] Hepatitis B Jocelyne Not Abnormal Immune finding [address] [place] [address] [phone] Urine 03/27/2019 [facility] Ur Microalbumin < 15.0 Microalbumin 101 (mg/L) mg/[place] [address] [phone] Urine Creatinine 130.12 mg/dL Urine Microalbumin/Creatinine TNP <31 9 Lipid Profile 03/27/2019 [facility] Triglycerides 161 mg/dL 10 (Trig/Chol/HDL) [address] [place] [address] [phone] Cholesterol 203 mg/dL 11 HDL Cholesterol 39.8 mg/dL 12 LDL Cholesterol 131 mg/dL 13 Laboratory test 03/27/2019 [facility] Erythrocyte Sed 113 mm/Hr High 0-19 finding [address] [place] [address] [phone] Urinalysis 03/27/2019 [facility] Urine Color Yellow Profile [address] [place] [address] [phone] Urine Appearance Clear Urine Specific Watson 1.014 Normal 1.010-1.030 Urine pH 6.0 Normal 5-9 Urine Urobilinogen Negative Negative Urine Ketones Negative Negative Urine Protein Negative Negative Urine Leukocytes Negative Negative Urine Blood Negative Negative Urine Nitrite Negative Negative Urine Bilirubin Negative Negative Urine Glucose Negative Negative Laboratory test 03/27/2019 [facility] C Reactive 25.87 mg/L High <8.01 finding [address] [place] [address] [phone] Comp Metabolic 03/27/2019 [facility] Sodium 137 mmol/L Normal 135-[address] [place] [address] [phone] Potassium 4.7 mmol/L Normal 3.5-5.0 Chloride 103 [...] Egfr Non- 101.3 >60 Egfr 122.6 >60 14 CMV Igg/Igm 03/27/2019 [facility] Cytomegalovirus IgG Negative Negative [address] [place] [address] [phone] Cytomegalovirus IgM Antibody Negative Negative Laboratory test 03/27/2019 [facility] LDH 149 U/L Normal 140- [address] [place] [address] [phone] CBC Auto Diff 03/27/2019 [facility] White Blood 22.8 High 3.5- 10.[address] Count 10^3/[place] [address] [phone] Red Blood Count 4.36 10^6/uL Normal 3.70-4.87 [...] Cells % 0.0 Comp Metabolic Panel 01/27/2019 [facility] Sodium 134 mmol/L Low 135-[address] [place] [address] [phone] Potassium 4.1 mmol/L Normal 3.5-5.0 Chloride 102 [...] Egfr Non- 87.4 >60 Egfr 105.8 >60 16 Co2 Carbon Dioxide 14 mmol/L Critical low 22-32 17 Anion Gap 18 mmol/L High 2-11 CBC Auto 01/27/2019 [facility] White Blood 19.4 10^3/uL High 3.5-10.[address] [place] [address] [phone] Red Blood Count 4.35 10^6/uL Normal 3.70-4.87 [...] Blood Cells % 0.0 Laboratory test 01/27/2019 [facility] C Reactive 33.01 mg/L High <8.01 [address] [place] [address] [phone] Erythrocyte Sed Rate 104 mm/Hr High 0-19 19 Urine Culture And 01/27/2019 [facility] Urine Culture SEE RESULT [address] [place] [address] [phone] Urinalysis Profile 01/27/2019 [facility] Urine Color Ciarra [address] [place] [address] [phone] Urine Appearance Cloudy Urine Specific Watson 1.030 Normal 1.010-1.030 Urine pH 5.0 Normal [...] Casts Present Abnormal Absent Laboratory test 01/27/2019 [facility] Lactic Acid 1.6 mmol/L Normal 0.5-2.0 [address] [place] [address] [phone] CBC Auto Diff 01/27/2019 [facility] White Blood 21.1 High 3.5- 10.[address] Count 10^3/[place] [address] [phone] Red Blood Count 4.44 10^6/uL Normal 3.70-4.87 [...] Blood Cells % 0.0 Laboratory test 01/27/2019 [facility] Troponin-I (TnI) 0.00 ng/ mL <0.04 [address] [place] [address] [phone] HCG < 0.60 mIU/mL 23 Basic Metabolic 01/27/2019 [facility] Sodium 133 mmol/L Low 135-[address] [place] [address] [phone] Potassium 3.6 mmol/L Normal 3.5-5.0 Chloride 104 mmol/L Normal 101-111 Co2 Carbon Dioxide 18 mmol/L Low 22-32 Anion Gap 11 mmol/L Normal 2-11 Glucose 147 mg/dL High 70-100 Blood Urea Nitrogen 12 mg/dL Normal 6-24 Creatinine 0.62 mg/dL Normal 0.51-0.95 BUN/Creatinine Ratio 19.4 Normal 8-20 Calcium 9.7 mg/dL Normal 8.6-10.3 Egfr Non- 108.9 >60 Egfr 131.8 >60 24 Venous Blood 01/27/2019 [facility] Venous Blood 7.41 Normal 7.32-7.[address] [place] [address] [phone] Venous Pco2 33 mmHg Low 41-51 Venous Po2 46.0 mmHg High 35-45 Venous O2 Saturation 80.6 % High 70-80 Venous Blood Base Excess -2.9 mmol/L Low 0.0-4.0 25 Venous Bicarbonate Hco3 22.2 mmol/L Low 24-28 Laboratory test 01/27/2019 [facility] Blood SEE RESULT 26, [address] [place] [address] [phone] Laboratory test 12/28/2018 [facility] Point of 157 mg/dL High 70-10 [address] Care Glucose 0 [place] [address] [phone] CBC Auto Diff 12/28/2018 [facility] White Blood 16.7 High 3.5- [address] Count 10^3/uL 0.8 [place] [address] [phone] Red Blood Count 4.30 10^6/uL Normal 3.70-4.87 [...] Blood Cells % 0.0 Laboratory test 12/28/2018 [facility] Lactic Acid 1.3 mmol/L Normal 0.5-2.0 [address] [place] [address] [phone] Acetaminophen < 15 g/mL 30 Alcohol < 10 mg/dL Normal <10 Salicylate < 2.50 mg/dL <30 Comp Metabolic 12/28/2018 [facility] Sodium 137 mmol/L Normal 135-145 Panel [address] [place] [address] [phone] Potassium 4.0 mmol/L Normal 3.5-5.0 Chloride 109 [...] Egfr Non- 97.9 >60 Egfr 118.5 >60 31 Laboratory test 12/28/2018 [facility] HCG < 0.60 mIU/ mL 32 finding [address] [place] [address] [phone] TSH (Thyroid Stim Horm) 0.91 mcIU/mL Normal 0.34-5.60 Urinalysis Profile 12/28/2018 [facility] Urine Color Yellow [address] [place] [address] [phone] Urine Appearance Clear Urine Specific Watson 1.023 Normal 1.010-1.030 Urine pH 6.0 Normal [...] Cell Present Abnormal Absent Urine Drug 12/28/2018 [facility] Urine None Detected None Detect SCR ED & 101 [facility] [place] [address] Screen [phone] Urine Barbiturates Screen None Detected None Detect Urine Benzodiazepine Screen None Detected None Detect Urine Cannabinoids Screen Presumptive Posi <SEE NOTE> Abnormal None Detect 33 Urine Cocaine Screen None Detected None Detect Urine Opiates Screen Presumptive Posi <SEE NOTE> Abnormal None Detect 34 Urine Phencyclidine Screen None Detected None Detect 35 1 SEE RESULT BELOW Name: JAYY CANTU : [address]: Heath Barber MD Acct: [id number] Unit: [id number] AGE: 38 Location: ED Re06/27/19 SEX: F Status: DEP ER SPEC: [id number] [place]: 06/27/[address] [facility] [address]: Heath Barber MD REQ: [id number] RECD: 06/27/19 STATUS:RES OT DR: Kimberlyn Dhillon MD _ SOURCE: FRANCISCO ELLIS SPDESC: ORDERED: MRSA/SA SSTI, Culture Stain QUERIES: Specimen Description R AXIONIA ABSCESS Procedure Result Reported Site MRSA/S. aureus SSTI PCR PENDING Wound/Misc Gram Stain Preliminary 06/27/19- 1919 ML 4+ Neutrophils 2+ Epithelial Cells 3+ Gram Positive Cocci in Clusters, resembling Staph Wound/Misc Culture PENDING * ML - Main Lab . END OF REPORT DEPARTMENT OF PATHOLOGY, [address] [place] [address] Simón Uriarte M.D. Director [facility] # [id number] 2 SEE RESULT BELOW Name: JAYY CANTU : [address]: Heath Barber MD Acct: [id number] Unit: [id number] AGE: 38 Location: ED Re06/27/19 SEX: F Status: DEP ER SPEC: [id number] [place]: 06/27/19-15[address] [facility] [address]: Heath Barber MD REQ: [id number] RECD: 06/27/19 STATUS:COMP [facility] DR: Kimberlyn Dhillon MD _ SOURCE: FRANCISCO ELLIS [facility]: ORDERED: MRSA/SA SSTI, Culture Stain COMMENTS: Verbal to [id number] by [id number] at 2032 on 06/27/19. Results read back accurately. QUERIES: Specimen Description R AXILLA ABSCESS Procedure Result Reported Site MRSA/S. aureus SSTI PCR Final 06/28/19731 ML Organism 1 MRSA NEGATIVE Organism 2 S.AUREUS POSITIVE As with all diagnostic procedures, the laboratory results obtained should be used in conjunction with other clinical information available to the physician, including confirmation by another method, as applicable. Wound/Misc Gram Stain Final 06/28/19731 ML 3+ Neutrophils 1+ Epithelial Cells 2+ Gram Positive Cocci Wound/Misc Culture Final 06/29/19916 ML Organism 1 STAPHYLOCOCCUS AUREUS Quantity 3+ CONTINUED ON NEXT PAGE DEPARTMENT OF PATHOLOGY, [address] [place] [address] Simón Uriarte M.D. Director [facility] # [id number] Specimen: [id number] Collected: 06/27/19 Received: 06/27/19 (Continued) Procedure Result Reported Site Wound/Misc Culture Final (continued) 06/29/19- 916 1. STAPHYLOCOCCUS AUREUS M.I.C. RX --------- ------ Penicillin >=0.5 R Clindamycin <=0.25 S Erythromycin <=0.25 S Gentamicin <=0.5 S Linezolid 2 S Oxacillin <=0.25 S * Quinupristin/Dalfopristin <=0.25 S Rifampin <=0.5 S Tetracycline <=1 S Doxycycline - Deduced S * Minocycline - Deduced S Trimethoprim/Sulfamethoxazole <=10 S Vancomycin 1 S Imipenem-Deduced S * Ampicillin/Sulbactam-Deduced S Cefazolin-Deduced S * These antibiotics are not available in the [facility] Formulary Contact the Microbiology Department for any additional antibiotic reporting. * ML - Main Lab . END OF REPORT DEPARTMENT OF PATHOLOGY, [address] [place] [address] Simón Uriarte M.D. Director [facility] # [id number] 4 SEE RESULT BELOW Name: JAYY CANTU : [address]: Chay Olivas MD Acct: [id number] Unit: [id number] AGE: 38 Location: [facility] Re06/25/19 SEX: F Status: DEP ER SPEC: [id number] [place]: 06/25/19-110 [facility] [address]: Erin CHAVEZ REQ: [id number] RECD: 06/25/19 STATUS: RES OTHR DR: Kimberlyn Olivas MD _ SOURCE: FRANCISCO ELLIS [facility]: ORDERED: MRSA/SA SSTI, Culture Stain COMMENTS: [id number] Procedure Result Reported Site MRSA/S. aureus SSTI PCR PENDING Wound/Misc Gram Stain Final 06/25/19- 1502 ML 4+ Neutrophils 1+ Epithelial Cells 3+ Gram Positive Cocci Wound/Misc Culture PENDING * ML - Main Lab . END OF REPORT DEPARTMENT OF PATHOLOGY, [address] [place] [address] Simón Uriarte M.D. Director [facility] # [id number] 5 SEE RESULT BELOW Name: JAYY CANTU : [address]: Chay Olivas MD Acct: [id number] Unit: [id number] AGE: 38 Location: [facility] Re06/25/19 SEX: F Status: DEP ER SPEC: [id number] [place]: 06/25/19-1109 [facility] [address]: Erin CHAVEZ REQ: [id number] RECD: 06/25/19-1311 STATUS:JOEL GARCIA DR: Kimberlyn Olivas MD _ SOURCE: FRANCISCO ELLIS SPDESC: ORDERED: MRSA/SA SSTI, Culture Stain COMMENTS: [id number] Verbal to [id number] by [email or web address] at 1625 on 06/25/19. Results read back accurately. Procedure Result Reported Site MRSA/S. aureus SSTI PCR Final 06/25/19- 1624 ML Organism 1 MRSA NEGATIVE Organism 2 S.AUREUS POSITIVE As with all diagnostic procedures, the laboratory results obtained should be used in conjunction with other clinical information available to the physician, including confirmation by another method, as applicable. Wound/Misc Gram Stain Final 06/25/19- 1502 ML 4+ Neutrophils 1+ Epithelial Cells 3+ Gram Positive Cocci Wound/Misc Culture Final 06/27/19- 130 ML Organism 1 STAPHYLOCOCCUS AUREUS Quantity 2+ CONTINUED ON NEXT PAGE DEPARTMENT OF PATHOLOGY, [address] [place] [address] Simón Uriarte M.D. Director [facility] # [id number] Specimen: [id number] Collected: 06/25/19 Received: 06/25/19 (Continued) Procedure Result Reported Site Wound/Misc Culture Final (continued) 06/27/191300 1. STAPHYLOCOCCUS AUREUS M.I.C. RX --------- ------ Penicillin >=0.5 R Clindamycin <=0.25 S Erythromycin <=0.25 S Gentamicin <=0.5 S Linezolid 2 S Oxacillin 0.5 S * Quinupristin/Dalfopristin <=0.25 S Rifampin <=0.5 S Tetracycline <=1 S Doxycycline - Deduced S * Minocycline - Deduced S Trimethoprim/Sulfamethoxazole <=10 S Vancomycin <=0.5 S Imipenem-Deduced S * Ampicillin/Sulbactam-Deduced S Cefazolin-Deduced S * These antibiotics are not available in the [facility] Formulary Contact the Microbiology Department for any additional antibiotic reporting. * ML - Main Lab . END OF REPORT DEPARTMENT OF PATHOLOGY, [address] [place] [address] Simón Uriarte M.D. Director [facility] # [id number] 6 Stock Saw Operator: [id number] Stock Saw Operator: [id number] 8 Therapeutic target for the treatment of diabetes mellitus patients is <7% HBA1C, and in selective patients <6.0%. Please refer to [place] [employer] diabetic care guidelines for further information. 9 Unable to calculate due to low microalbumin 10 Desirable: <150 Borderline High: 150-199 High: 200-499 Very High: >500 11 Desirable: <200 Borderline High: 200-239 High: >239 12 Low: <40 Desirable: 40-60 High: >60 13 Desirable: <100 Near Optimal: 100-129 Borderline High: 130-159 High: 160-189 Very High: >189 14 Because ethnic data is not always [...] 5 Kidney failure <15 (or dialysis) 15 Test Performed by: [facility] [address] , [place] [address] 16 Because ethnic data is not always [...] 5 Kidney failure <15 (or dialysis) 17 Critical Result CO2:[address] ROMANO at: 19:28:13 by:[id number] Read back by:DR ROMANO 18 Please check labs this week 19 Please check labs this week 20 SEE RESULT BELOW Name: JAYY CANTU : [address]: Lauro Ramirez MD Acct: [id number] Unit: [id number] AGE: 38 Location: ED Re01/27/19 SEX: F Status: REG ER SPEC: [id number] [place]: 01/27/[address]: Lauro Ramirez MD REQ: [id number] RECD: 01/27/19 STATUS: COMP JOSE DR: Kimberlyn Dhillon MD _ SOURCE: URINE SPDESC: ORDERED: Urine Culture Procedure Result Reported Site Urine Culture Final 01/29/19- 08 ML No growth of clinically significant organisms * ML - Main Lab . END OF REPORT DEPARTMENT OF PATHOLOGY, [address] [place] [address] Simón Uriarte M.D. Director [facility] # [id number] [facility] Severe Sepsis and Septic Shock Management Bundle Measure requires all lactic acids initially measuring >2.0 mmol/L be repeated. 22 Troponin-I testing on Plasma Separator Tubes (PST) has a known false positive rate of 0.20-0.40%. All positive troponins reflex immediately to secondary confirmatory testing. Using the [employer] DxI 800 Access Immunoassay systems, the 99th percentile upper reference limit was demonstrated to be < 0.03 ng/mL. 23 <5.0 Negative 5.0 - 25.0 Indeterminate (Repeat testing recommended after 72 hours) >25.0 Positive Perimenopausal women can display HCG levels of up to 20 mIU/mL 24 Because ethnic data is not always readily [...] 15-29 5 Kidney failure <15 (or dialysis) 25 Reference ranges based on room air. 26 Patient is On Antibiotics? NO 27 SEE RESULT BELOW Name: JAYY CANTU : [address]: Lauro Ramirez MD Acct: [id number] Unit: [id number] AGE: 38 Location: ED Re01/27/19 SEX: F Status: DEP ER SPEC: [id number] [place]: 01/27/[address] [facility] [address]: Lauro Ramirez MD REQ: [id number] RECD: 01/27/19 STATUS: JOEL GARCIA DR: Kimberlyn Dhillon MD _ SOURCE: BLOOD,VENO SPDESC: ORDERED: Blood Cult COMMENTS: Patient is On Antibiotics? NO Procedure Result Reported Site Aerobic Culture Bottle Final 02/01/19- 2300 ML No Growth Day 5 Anaerobic Culture Bottle Final 02/01/19- 2300 ML No Growth Day 5 * ML - Main Lab . END OF REPORT DEPARTMENT OF PATHOLOGY, [address] [place] [address] Simón Uriarte M.D. Director [facility] # [id number] 28 Stock Saw Operator: [id number] [facility] Severe Sepsis and Septic Shock Management Bundle Measure requires all lactic acids initially measuring >2.0 mmol/L be repeated. 30 Therapeutic concentration: <50 ug/mL Toxic concentration: >120 ug/mL 31 Because ethnic data is not always readily [...] 15-29 5 Kidney failure <15 (or dialysis) 32 <5.0 Negative 5.0 - 25.0 Indeterminate (Repeat testing recommended after 72 hours) >25.0 Positive Perimenopausal women can display HCG levels of up to 20 mIU/mL 33 Presumptive Positive Presumptive positive results are unconfirmed. 34 Presumptive Positive Presumptive positive results are unconfirmed. 35 The urine specimen was tested at the listed cutoffs: Drug class test level (ng/mL) Amphetamines 500 Barbiturates 200 Benzodiazepine metabolites 200 Cocaine metabolites 150 Cannabinoids 50 Opiates 300 Pcp 25 Specimen was received without chain of custody. Results should be used for medical purposes only. Procedures Date Code Description Status 06/08/2019 02045 Inject/Drain Joint/Bursa Major W/O US Completed 04/19/2019 57420 Arthroscopy Shoulder,W/Rotator Cuff Repair Completed 04/19/2019 52358 Arthroscopy,Shoulder Decompression Of Subacromial Completed Space W/Acromio 04/06/2019 11344 Treadmill Interp/Report Only Completed 04/06/2019 51766 Stress Test Supervsn W/Out I/R Completed 03/27/2019 23405 EKG Tracing & Interpretation Completed 02/10/2019 23464 Inject/Drain Joint/Bursa Major W/O US Completed 12/24/2016 [id number] Diabetic Retinal Eye Exam Completed Medical Devices Description No Information Available Encounters Type Date Location Provider Dx Diagnosis Office Visit 06/08/2019 [facility] Jak Booker, M75.42 Impingement 2:30p at [place] syndrome of left shoulder Office Visit 06/01/2019 [facility] Internal Kimberlyn Dhillon, M25.362 Other instability, 12:10p Medicine - Tian Go left knee Z23 Encounter for immunization Office Visit 05/02/2019 2:15p [facility] Jak Booker, M25.512 Pain in left at [place] shoulder S46.011A Strain of musc/tend the rotator cuff of right shoulder, init Office Visit 04/20/2019 [facility] G47.33 Obstructive 1:50p [facility] M.D. sleep apnea Hospitalists (adult) (pediatric) Office Visit 04/19/2019 [facility] G47.33 Obstructive 1:49p [facility] M.D. sleep apnea [facility] (adult) (pediatric) E11.9 Type 2 diabetes mellitus without complications Z79.4 shelter (current) use of insulin F41.9 Anxiety disorder, unspecified Office Visit 03/29/2019 [facility] G47.33 Obstructive sleep 1:30p [facility] apnea (adult) [facility] (pediatric) E66.9 Obesity, unspecified Z68.43 Body mass index (BMI) 50.0-59.9, adult Office Visit 03/27/2019 1:20p [facility] Internal Mejia Valdivia, Z01.818 Encounter for other Medicine - preprocedural [address] examination M25.811 Other specified joint disorders, right shoulder I25.10 Athscl heart disease of [place] coronary artery w/o ang pctrs E78.2 Mixed hyperlipidemia Z68.43 Body mass index (BMI) 50.0-59.9, adult E66.01 Morbid (severe) obesity due to excess calories E10.65 Type 1 diabetes mellitus with hyperglycemia R94.31 Abnormal electrocardiogram [ECG] [EKG] Office Visit 03/09/2019 3:15p [facility] Jak Booker M75.41 Impingement at Roxane CAMARENA syndrome of right shoulder Office Visit 03/01/2019 4:00p Rheumatology Mike L95.9 [facility] Donavan Maradiaga limited to the skin, unspecified Z79.899 Other termite control 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 (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) drug therapy R19.7 Diarrhea, unspecified B37.0 Candidal stomatitis D72.829 Elevated white blood cell count, unspecified Office Visit 02/21/2019 2:00p [facility] Internal Kimberlyn G47.33 Obstructive sleep Medicine - Donavan Dhillon apnea (adult) [facility] (pediatric) E78.2 Mixed hyperlipidemia J45.40 Moderate persistent asthma, uncomplicated E10.65 Type 1 diabetes mellitus with hyperglycemia I73.9 Peripheral vascular disease, unspecified I83.93 Asymptomatic varicose veins of bilateral lower extremities Office 02/15/2019 [facility] Jillian G43.719 Chronic migraine Visit 11:00a Damien Rosa M.D. w/o aura, intractable, w/o stat migr Office 02/10/2019 [facility] at Jak Booker M75.41 Impingement Visit 11:30a Roxane CAMARENA syndrome of right shoulder Office 01/02/2019 [facility] Francheska E10.65 Type 1 diabetes Visit 4:30p [facility] Marker, RPA-C mellitus with hyperglycemia Assessments Date Code Description Provider 06/29/2019 L02.411 Cutaneous abscess of right axilla Gianna Lopez M.D., FACP 06/29/2019 E11.9 Type 2 diabetes mellitus without Gianna Lopez M.D., FACP complications 06/29/2019 L95.9 Vasculitis limited to the skin, Gianna Lopez M.D., FACP unspecified 06/08/2019 M75.42 Impingement syndrome of left shoulder [...] right shoulder Jak Booker MD 04/19/2019 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 04/19/2019 F41.9 Anxiety disorder, unspecified Ed Hylton M.D. 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 03/01/2019 [...] diabetes mellitus with Francheska Marker, RPA-C hyperglycemia Plan of Treatment Future Appointment(s):07/19/2019 11:00 am - Yadira Bobby M.D. at [facility]08/10/2019 1:30 pm - Jak Booker MD at [facility] at [facility]5212/01/2019 1:00 pm - Nurse Visit A at [facility] Internal Medicine - [facility]07/03/2019 1:00 pm - Nurse Visit A at [facility] Internal Medicine - [facility]07/05/2019 2:30 pm - Jenny Winston NP at [facility]08/02/2019 11:00 am - Jillian Rosa M.D. at [facility]1406/29/2019 - Gianna Lopez M.D., FACPL02.411 Cutaneous abscess of right axillaComments:ABSCESS: Please follow up at the Wound Clinic and let me know if you are not substantially improvingover the next 48 hours. If you feel that the area is redder or hotter or firmer, you may need to be reevaluated sooner.The name of the antibiotic you were prescribed at the [facility] isCEPHALEXIN.You are up to date with your tetanus.Referral:No Doctor SelectedWound Clinic, Clinic/CenterFollow up:As needed.Recommendations:We will set up Visiting Nurse Services to help you with the wound care.E11.9 Type 2 diabetes mellitus without complicationsComments:DIABETES:I am glad to hear that your sugars have been well controlled despite the skin infection. You report that your last HA1c was 6 which is ideal. I recommend that you continue to do what you aredoing and take the medications that you are taking.L95.9 Vasculitis limited to the skin, unspecified Functional Status Description No Information Available Mental Status Description No Information Available Referrals Refer to Reason for Referral Status Appt Date Created Wound Clinic Abscess drained in Emergency Department 06/27/19. Created Needs ongoing packing care. 06/29 faxed referral, tried to call they are closed till 06/30. [address] [place] [address] [phone] Yadira Bobby MD Sent 06/19/2019 [address] [facility] [place] [address] [place] [address] [phone] Brett Kelley DO, [facility] surgical clearance, intermittent chest Sent 04/05 pain. ordering stress test [address] [place] [address] [phone]
--- OUTSIDE RECORDS SUMMARY | 2019-07-29 10:20 | XMS REPORT ---
:1980 Author Organization [facility] Care Team Providers Name Role Phone Unavailable Unavailable Unavailable Problems Condition Condition Condition Status Onset Resolution Last Treating Comments Name Details Category Date Date Treatment Clinician Date Pain frequent Pain Mgmt Active 2018-08 Anita pain 08-31 (Rusty) 08:45: Darci 00 [id number] Respiratory dyspnea Respirator Active 2018-08 Anita present y 08-31 (Rusty) 08:45: Bejarano 00 [id number] Endo/Dano diabetic Endo/Dano Active 2018-08 Anita foot care 08-31 (Rusty) 08:45: Bejarano 00 [id number] Integument surgical Integument Active 2018-08 Anita wound 08-31 (Rusty) present 08:45: Darci 00 [id number] Nutrition nutritional Nutrition Resolve 2018-082019-07-03 Anita restriction d 08-31 12:37:00 (Rusty) s 08:45: Bejarano 00 [id number] Elimination urinary Eliminatio Resolve 2018-082019-07-03 Anita incontinenc n d 08-31 12:37:00 (Rusty) e 08:45: Darci 00 [id number] Neuro confusion Neuro/Emot Active 2018-08 Anita present ion 08-31 (Rusty) 08:45: Bejarano 00 [id number] Neuro anxiety Neuro/Emot Active 2018-08 Anita present ion 08-31 (Rusty) 08:45: Bejarano 00 [id number] Neuro depressive Neuro/Emot Active 2018-08 Anita feelings ion 08-31 (Rusty) present 08:45: Bejarano 00 [id number] Neuro impaired Neuro/Emot Active 2018-08 Anita decision-ma ion 08-31 (Rusty) sumanth 08:45: Darci 00 [id number] Activity ADL Activity Active 2018-08 Anita assistance 08-31 (Rusty) required 08:45: Bejarano 00 [id number] Activity self-care Activity Active 2018-08 Anita deficit 08-31 (Rusty) 08:45: Darci 00 [id number] Safety fall risk Safety Active 2018-08 Anita factor 08-31 (Rusty) present 08:45: Darci 00 [id number] Safety risk for Safety Active 2018-08 Anita hospitaliza 08-31 (Rusty) tion 08:45: Darci 00 [id number] Medication oral med Meds Active 2018-08 Anita assistance 08-31 (Rusty) required 08:45: Darci 00 [id number] Medication injectable Meds Active 2018-08 Anita med 08-31 (Rusty) assistance 08:45: Darci required 00 [id number] Endo/Dano anti-coagul Endo/Dano Active 2018-08 Lu ation 09-02 Nguyen therapy 12:37: 00 Allergies, Adverse Reactions, [...] 08-31 Kimberlyn CAMARENA pantoprazol pantoprazol 2018-08 Yes Alejo Unknown Unknown e 40 mg e 40 mg 08-31 MD,Kimberlyn tablet,alexx tablet,alexx yed release yed release diphenhydrA diphenhydrA 2018-08 Yes Alejo Unknown Unknown MINE 25 mg [...]
--- OUTSIDE RECORDS SUMMARY | 2019-07-29 10:20 | XMS REPORT ---
:1980 Author Organization [facility] Care Team Providers Name Role Phone Unavailable Unavailable Unavailable Problems Condition Condition Condition Status Onset Resolution Last Treating Comments Name Details Category Date Date Treatment Clinician Date Pain frequent Pain Mgmt Resolve 2018-082019-07-03 Anita pain d 08-31 12:37:00 (Rusty) 08:45: Bejarano 00 [id number] Respiratory dyspnea Respirator Resolve 2018-082019-07-03 Anita present y d 08-31 12:37:00 (Rutsy) 08:45: Bejarano 00 [id number] Endo/Dano diabetic Endo/Dano Resolve 2018-082019-07-03 Anita foot care d 08-31 12:37:00 (Rusty) 08:45: Bejarano 00 [id number] Integument surgical Integument Active 2018-08 Anita wound 08-31 (Rusty) present 08:45: Bejarano 00 [id number] Nutrition nutritional Nutrition Resolve 2018-082019-07-03 Anita restriction d 08-31 12:37:00 (Rusty) s 08:45: Bejarano 00 [id number] Elimination urinary Eliminatio Resolve 2018-082019-07-03 Anita incontinenc n d 08-31 12:37:00 (Rusty) e 08:45: Bejarano 00 [id number] Neuro confusion Neuro/Emot Resolve 2018-082019-07-05 Anita present ion d 08-31 12:25:00 (Rusty) 08:45: Bejarano 00 [id number] Neuro anxiety Neuro/Emot Resolve 2018-082019-07-05 Anita present ion d 08-31 12:25:00 (Rusty) 08:45: Bejarano 00 [id number] Neuro depressive Neuro/Emot Resolve 2018-082019-07-05 Anita feelings ion d 08-31 12:25:00 (Rusty) present 08:45: Bejarano 00 [id number] Neuro impaired Neuro/Emot Resolve 2018-082019-07-05 Anita decision-ma ion d 08-31 12:25:00 (Rusty) sumanth 08:45: Bejarano 00 [id number] Activity ADL Activity Resolve 2018-082019-07-05 Anita assistance d 08-31 12:25:00 (Rusty) required 08:45: Bejarano 00 [id number] Activity self-care Activity Resolve 2018-082019-07-05 Anita deficit d 08-31 12:25:00 (Rusty) 08:45: Bejarano 00 [id number] Safety fall risk Safety Resolve 2018-082019-07-03 Anita factor d 08-31 12:37:00 (Rsuty) present 08:45: Bejarano 00 [id number] Safety risk for Safety Resolve 2018-082019-07-03 Anita hospitaliza d 08-31 12:37:00 (Rusty) tion 08:45: Bejarano 00 [id number] Medication oral med Meds Resolve 2018-082019-07-03 Anita assistance d 08-31 12:37:00 (Rusty) required 08:45: Bejarano 00 [id number] Medication injectable Meds Resolve 2018-082019-07-03 Anita med d 08-31 12:37:00 (Rusty) assistance 08:45: Bejarano required 00 [id number] Endo/Dano anti-coagul Endo/Dano Resolve 2018-082019-07-03 Lu mendoza [...]
[2019-07-29 10:21] VITALS: BP 111/72
--- NOTE | 2019-07-29 10:35 | UC ---
Hand/Wrist HPI - HPI Summary HPI Summary: Patient presents to urgent care for evaluation of a wound on her right middle finger. Patient states she developed an infection that she first noticed 3 days ago. Patient states she stepped progressive pain. Patient without any drainage. Patient does have a history of abscesses previously that she's had drained. Patient took Tylenol approximately 2 hours prior to arrival with improvement. Patient is on immunosuppressive medications and does have diabetes. Patient had a history of one of these paronychia several years ago that she had drained. The patient states her tetanus is up-to-date. Patient's medications as entered in the EMR with a triage nurse were reviewed. - History Of Current Complaint Chief Complaint: UCUpperExtremity Stated Complaint: FINGER ISSUE Time Seen by Provider: 07/29/19 10:31 Hx Last Menstrual Period: 07/27/19 Onset/Duration: Gradual Onset, Lasting Days Severity Initially: Moderate Severity Currently: Moderate Pain Intensity: 7 - Allergies/Home Medications Allergies/Adverse Reactions: Allergies Allergy/AdvReac Type Severity Reaction Status Date / Time Adhesive Tape Allergy Severe Rash Verified 07/29/19 10:26 asenapine Allergy Severe Rash Verified 07/29/19 10:26 bee venom protein (honey bee) Allergy Severe Anaphylatic Verified 07/29/19 10:26 Shock lurasidone [From Latuda] Allergy Severe Vomiting Verified 07/29/19 10:26 metoclopramide [From Reglan] Allergy Severe Abdominal Verified 07/29/19 10:26 Pain paclitaxel [From Taxol] Allergy Severe Rash Verified 07/29/19 10:26 Sulfa (Sulfonamide Allergy Severe Rash Verified 07/29/19 10:26 Antibiotics) sulfamethoxazole Allergy Severe Rash Verified 07/29/19 10:26 [From Bactrim] trimethoprim [From Bactrim] Allergy Severe Hives Verified 07/29/19 10:26 nalbuphine [From Nubain] AdvReac Severe Rash Verified 07/29/19 10:26 paroxetine [From Paxil] AdvReac Severe Vomiting Verified 07/29/19 10:26 tramadol AdvReac Severe Rash Verified 07/29/19 10:26 "metal" Allergy Severe Swelling Uncoded 07/29/19 10:26 zepeda Allergy Severe Nausea And Uncoded 07/29/19 10:26 Vomiting PMH/Surg Hx/FS Hx/Imm Hx Previously Healthy: Yes Endocrine History: Diabetes Cardiovascular History: Hypertension Psychological History: Depression - Surgical History Surgical History: Yes Surgery Procedure, Year, and Place: Cholecystectomy [facility] in [place]. Cardiac Catherterization[place]NO STENT [place] in [place] 2005, 2016 [facility],. ulnar nerve release 2018, [facility]. 04/19/19 - RT SHOULDER - ( NO EXTERNAL METAL) - Family History Known Family History: Positive: Cardiac Disease, Diabetes, Other - blod clots, Non-Contributory Negative: Hypertension - Social History Occupation: Disabled Lives: [facility] Alcohol Use: Rare Alcohol Amount: none today Substance Use Type: Marijuana Substance Use Comment - Amount & Last Used: medical / recreational marijuana Smoking Status (MU): Former Smoker Type: Cigarettes Amount Used/How Often: 2 cigarettes/day Length of Time of Smoking/Using Tobacco: 4 CIG/DAY 2 YEARS Have You Smoked in the Last Year: Yes When Did the Patient Quit Smoking/Using Tobacco: 2018 Household Exposure Type: Cigarettes - Immunization History Most Recent Influenza Vaccination: 2017-last season Most Recent Tetanus Shot: 2002 Most Recent Pneumonia Vaccination: 2017 Review of Systems All Other Systems Reviewed And Are Negative: Yes Constitutional: Positive: Negative Skin: Positive: Other - Redness erythema right middle finger Musculoskeletal: Positive: Other: - Pain right middle finger Physical Exam - Summary Physical Exam Summary: Vital Signs Reviewed: Yes A+Ox3, no distress Eyes: Conjunctiva Clear ENT: Hearing grossly normal neck: supple Respiratory: Positive: No respiratory distress, No accessory muscle use Cardiovascular: skin color reflect adequate perfusion CBT < 2 sec Musculoskeletal Exam: + flex/ext MCP, PIP, DIP against resistance Neurological: Positive: Alert, ambulatory without difficulty + gross sensation throughout Psychological: Positive: Normal Response To examiner Skin: Positive: no rash, no ecchymosis Pt with paronychia medial aspect of nail right middle finger. Pt without concern for involvement of pad mild fluctuance and visible pus at nail edge Triage Information Reviewed: Yes Vital Signs: Initial Vital Signs Temp 97.6 F 07/29/19 10:17 Pulse 89 07/29/19 10:17 Resp 16 07/29/19 10:17 BP 111/72 07/29/19 10:17 Pulse Ox 98 07/29/19 10:17 Procedures - Procedure Summary Procedure Summary: verbal permission to treat time out completed with RN at bedside pt prepped in usual, sterile fashion digital block placed webspacing prepped with betadine in sterile fashion. total of 6ml of buvicaine infiltrated right middle finger webspacing under sterile condition After anesthesized, distal finger cleaned copious chlorexadine using 11 blade lifted medial cuticle with gush or purluent material gentle massaged and irrigated - pt tolerated well covere with abx ointment, bandage and splint reviewed with pt wound care s/s infection return precautions Hand/Wrist Course/Dx - Course Course Of Treatment: Patient presents to urgent care with a paronychia of her right, dominant hand, middle finger. Patient with a history of diabetes and immunosuppressive medications. Patient with a history of abscesses in the past. Vital signs are stable. Patient with paronychia with physical possible fluctuance on the medial aspect of the right middle finger. After discussion with the patient elected to do a digital block and I&D. Patient tolerated very well. Wound culture taken. Patient wound covered with antibiotic ointment bandage and sponge. Patient's her on Augmentin. Patient given a dose of Diflucan as she states she feels like it's [place] infections. Strict return precautions discussed. Patient comfortable with the plan. Of note, patient was in the house, and supervisor motorcycle repair shop from the house was present and involved with the plan of care and decision making. Return precautions discussed. - Differential Dx/Diagnosis Provider Diagnosis: Paronychia of right middle finger Discharge ED - Sign-Out/Discharge Documenting (check all that apply): Patient Departure All imaging exams completed and their final reports reviewed: No Studies - Discharge Plan Condition: Stable Disposition: HOME Prescriptions: Amoxicillin/Clavulanate TAB* [Augmentin TAB 875*] 875 mg PO BID #14 tab Fluconazole [Diflucan 150 MG (NF)] 150 mg PO ONCE PRN #1 tab PRN Reason: vaginal yeast infection Patient Education Materials: Paronychia (ED) Referrals: Kimberlyn Dhillon MD [Primary Care Provider] - Additional Instructions: - Take antibiotics twice a day as prescribed - soak finger in warm, epsom salt soaks for 10 minutes, 2-3 times a day - Take tylenol as previously prescribed - Okay to wash with warm soapy water - pat dry, cover with antibiotic ointment - wear splint for comfort and support - A sample of the pus was sent for further testing. If you need a different antibiotic, you will receive a call from a care steamfitter apprentice - this may take 2-3 days - Contact your doctor or return with questions or concerns - Billing Disposition and Condition Condition: STABLE Disposition: Home
[2019-07-29] MEDS ORDERED: Bupivacaine 0.25% SDV PF* 10 ML VIAL INJ ONE (10:43)
--- NOTE | 2019-08-01 08:08 | UC ---
- Progress Note Progress Note: RN to call pt. Wound cx 07/29/19 -> + s. aureus. Not MRSA. However, + resistant to pcn. As such, will modify abx. I reviewed medications / allergies as noted in [facility]. RN will confim allergies. Rx clindamycin e-scribed to pharmacy of record. Stop augmentin once she has picked up and is able to start clindamycin. Ms. Leigh should schedule a finger recheck appointment with her pcp later this week if possible. She should seek medical attention for worse or new problems. Course/Dx - Diagnoses Provider Diagnoses: Paronychia of right middle finger Discharge ED - Sign-Out/Discharge Documenting (check all that apply): Post-Discharge Follow Up All imaging exams completed and their final reports reviewed: No Studies - Discharge Plan Condition: Stable Disposition: HOME Prescriptions: Amoxicillin/Clavulanate TAB* [Augmentin TAB 875*] 875 mg PO BID #14 tab Fluconazole [Diflucan 150 MG (NF)] 150 mg PO ONCE PRN #1 tab PRN Reason: vaginal yeast infection Patient Education Materials: Paronychia (ED) Referrals: Kimberlyn Dhillon MD [Primary Care Provider] - Additional Instructions: - Take antibiotics twice a day as prescribed - soak finger in warm, epsom salt soaks for 10 minutes, 2-3 times a day - Take tylenol as previously prescribed - Okay to wash with warm soapy water - pat dry, cover with antibiotic ointment - wear splint for comfort and support - A sample of the pus was sent for further testing. If you need a different antibiotic, you will receive a call from a care forensics team director - this may take 2-3 days - Contact your doctor or return with questions or concerns - Billing Disposition and Condition Condition: STABLE Disposition: Home
== END 2019-07-29 11:26 | disposition home or self-care (01) ==
LOC: UCEAST 10:08
DX: L03.011 Cellulitis of right finger (principal); I10 Essential (primary) hypertension; E11.9 Type 2 diabetes mellitus without complications; Z88.8 Allergy status to other drugs, medicaments and biological substances; Z88.2 Allergy status to sulfonamides; Z88.5 Allergy status to narcotic agent; Z91.030 Bee allergy status; Z91.09 Other allergy status, other than to drugs and biological substances; Z87.891 Personal history of nicotine dependence
CPT/HCPCS: 10060; 87070; 87077; 87186; 87205; 87640; 87641; 99212; G0463; J3490

== ENCOUNTER 2019-08-29 14:23 | Emergency (ER) | payer OTHER ==
--- NOTE | 2019-08-29 15:13 | ED ---
Respiratory - HPI Summary HPI Summary: The patient is a 39 y/o F presenting to [facility] with a chief complaint of respiratory symptoms for the last two weeks. She reports that she is currently immunosuppressed, and had been around her sister who is sick and recently was discharged from the hospital with PNA. Since she had been exposure to her sister , she has been experiencing chest and nasal congestion, sore throat, cough, hoarseness, mid-sternal chest tightness constant with lying down, and wheezing. She denies any fever. Symptoms currently rated 1/10 in severity. She has attempted to relieve her symptoms with Mucinex and Nyquil to no relief. She has obtained her flu vaccine this year. No cardiac history, but had a cardiac cath last year with negative results. PMHx: DM, asthma, sleep apnea. Former smoker, no EtOH, medical marijuana use. Medications reviewed. Allergies noted. - History of Current Complaint Chief Complaint: EDUpperRespComplaint Stated Complaint: COUGH, Time Seen by Provider: 08/29/19 14:57 Hx Obtained From: Patient Onset/Duration: Lasting Weeks - two, Still Present Initial Severity: Mild Current Severity: Mild Pain Intensity: 1 Character: Wheezing, Cough (Productive) Sputum Amount: Small Aggravating Factor(s): Nothing Alleviating Factor(s): Nothing - meds to no relief Associated Signs and Symptoms: Chest Pain, Wheezing, Nasal Congestion, Pleuritic Chest Pain, Sinus Discomfort - Allergy/Home Medications Allergies/Adverse Reactions: Allergies Allergy/AdvReac Type Severity Reaction Status Date / Time Adhesive Tape Allergy Severe Rash Verified 08/29/19 14:32 asenapine Allergy Severe Rash Verified 08/29/19 14:32 bee venom protein (honey bee) Allergy Severe Anaphylatic Verified 08/29/19 14:32 Shock lurasidone [From Latuda] Allergy Severe Vomiting Verified 08/29/19 14:32 metoclopramide [From Reglan] Allergy Severe Abdominal Verified 08/29/19 14:32 Pain paclitaxel [From Taxol] Allergy Severe Rash Verified 08/29/19 14:32 Sulfa (Sulfonamide Allergy Severe Rash Verified 08/29/19 14:32 Antibiotics) sulfamethoxazole Allergy Severe Rash Verified 08/29/19 14:32 [From Bactrim] trimethoprim [From Bactrim] Allergy Severe Hives Verified 08/29/19 14:32 nalbuphine [From Nubain] AdvReac Severe Rash Verified 08/29/19 14:32 paroxetine [From Paxil] AdvReac Severe Vomiting Verified 08/29/19 14:32 tramadol AdvReac Severe Rash Verified 08/29/19 14:32 "metal" Allergy Severe Swelling Uncoded 08/29/19 14:32 zepeda Allergy Severe Nausea And Uncoded 08/29/19 14:32 Vomiting Home Medications: Home Medications Amoxicillin/Clavulanate TAB* [Augmentin TAB 875*] 875 mg PO BID 08/29/19 [ History Confirmed 08/29/19] Clindamycin Cap(NF) [Clindamycin Cap 300 mg Cap(NF)] 300 mg PO TID 08/29/19 [ History Confirmed 08/29/19] Fluconazole 150 MG (NF) [Diflucan 150 mg (NF)] 150 mg PO ONCE 08/29/19 [History Confirmed 08/29/19] PMH/Surg Hx/FS Hx/Imm Hx Endocrine/Hematology History: Reports: Hx Diabetes - type 1, Hx Anemia Denies: Hx Thyroid Disease, Other Endocrine/Hematological Disorders Cardiovascular History: Reports: Hx Angina, Hx Hypercholesterolemia, Other Cardiovascular Problems/Disorders - vasculitis. tachycardia Denies: Hx Coronary Artery Disease, Hx Hypertension, Hx Myocardial Infarction , Hx Pacemaker/ICD, Hx Peripheral Vascular Disease, Hx Valvular Heart Disease Respiratory History: Reports: Hx Asthma, Hx Sleep Apnea Denies: Hx Chronic Obstructive Pulmonary Disease (COPD), Other Respiratory Problems/Disorders GI History: Reports: Hx Crohn's Disease, Hx Gastroesophageal Reflux Disease, Hx Irritable Bowel, Other GI Disorders - gastroparesis Denies: Hx Ulcer History: Denies: Hx Dialysis, Hx Renal Disease, Other Problems/Disorders Musculoskeletal History: Reports: Hx Arthritis - back and knees, Other Musculoskeletal History - Ulnar nerve compression Right arm Denies: Hx Osteoporosis Sensory History: Reports: Hx Contacts or Glasses Denies: Hx Legally Blind, Hx Deafness, Hx Hearing Aid Opthamlomology History: Reports: Hx Contacts or Glasses Denies: Hx Legally Blind Neurological History: Reports: Hx Headaches, Hx Migraine, Hx Nerve Disease - diabetic neuropathy Denies: Hx Seizures, Hx Transient Ischemic Attacks (TIA), Other Neuro Impairments/Disorders Psychiatric History: Reports: Hx Anxiety, Hx Depression, Hx Panic Disorder - PTSD, Hx Post Traumatic Stress Disorder, Hx Inpatient Treatment, Hx Community Mental Health Tx, Hx Bipolar Disorder, Hx Suicide Attempt, Other Psychiatric Issues/Disorders - Borderline Personality Disorder Denies: Hx Attention Deficit Hyperactivity Disorder, Hx Eating Disorder, Hx Schizophrenia, Hx of Violent Episodes Against Others - Cancer History Hx Chemotherapy: No - Surgical History Surgical History: Yes Surgery Procedure, Year, and Place: Cholecystectomy [facility] in [place]. Cardiac Catherterization-NO STENT [facility] in [place] 2005, 2016 [facility] [place]nar nerve release 2018, [facility] [place]. 04/19/19 - RT SHOULDER - ( NO EXTERNAL METAL) Hx Anesthesia Reactions: No - Immunization History Date of Tetanus Vaccine: utd Date of Influenza Vaccine: fall 2016 Infectious Disease History: No Infectious Disease History: Reports: Hx of Known/Suspected MRSA Denies: Hx Hepatitis, Hx Human Immunodeficiency Virus (HIV), Traveled Outside the [place] in Last 30 Days - Family History Known Family History: Positive: Cardiac Disease, Diabetes, Other - blod clots Negative: Hypertension - Social History Alcohol Use: None Alcohol Amount: none today Hx Substance Use: Yes Substance Use Type: Reports: Marijuana Substance Use Comment - Amount & Last Used: medical / recreational marijuana Hx Tobacco Use: Yes Smoking Status (MU): Former Smoker Type: Cigarettes Amount Used/How Often: 2 cigarettes/day Length of Time of Smoking/Using Tobacco: 4 CIG/DAY 2 YEARS Have You Smoked in the Last Year: Yes Review of Systems Negative: Fever Positive: Sore Throat - with hoarseness, Other - nasal congestion Positive: Chest Pain - mid-sternal tightness Positive: Cough, Other - chest congestion, wheezing All Other Systems Reviewed And Are Negative: Yes Physical Exam - Summary Physical Exam Summary: Constitutional: Well-developed, Well-nourished, Alert. (-) Distressed Skin: Warm, Dry HENT: Normocephalic; Atraumatic; Hoarse voice Eyes: Conjunctiva normal Neck: Musculoskeletal ROM normal neck. (-) JVD, (-) Stridor, (-) Tracheal deviation Cardio: Rhythm regular, rate normal, Heart sounds normal; Intact distal pulses; Radial pulses are 2+ and symmetric. (-) Murmur Pulmonary/Chest wall: Effort normal. (-) Respiratory distress, (-) Wheezes, (-) Rales Abd: Soft, (-) tenderness, (-) Distension, (-) Guarding, (-) Rebound Musculoskeletal: (-) Edema Lymph: (-) Cervical adenopathy Neuro: Alert, Oriented x3 Psych: Mood and affect Normal Triage Information Reviewed: Yes Vital Signs On Initial Exam: Initial Vitals Temp Pulse Resp BP Pulse Ox 96.9 F 85 16 107/82 97 08/29/19 14:27 08/29/19 14:27 08/29/19 14:27 08/29/19 14:27 08/29/19 14:27 Vital Signs Reviewed: Yes Procedures - Sedation Patient Received Moderate/Deep Sedation with Procedure: No Diagnostics - Vital Signs Vital Signs Temp Pulse Resp BP Pulse Ox 08/29/19 14:27 96.9 F 85 16 107/82 97 - Laboratory Result Diagrams: 08/29/19 15:15 08/29/19 15:15 Lab Statement: Any lab studies that have been ordered have been reviewed, and results considered in the medical decision making process. - Radiology CXR Radiology Interpretation Completed By: Radiologist Summary of Radiographic Findings: Impression: Low lung volumes. No active cardiopulmonary disease. ED physician has reviewed this report. - EKG 1511 Cardiac Rate: NL - 77 bpm EKG Rhythm: Sinus Rhythm EKG Comparison: No Significant Change - similar to 01/27/19 Summary of EKG Findings: Sinus rhythm 77 bpm. No STEMI. ED physician has reviewed and interpreted this EKG. Re-Evaluation - Re-Evaluation First Eval Re-Evaluation Time: 16:25 Comment: We discussed results and plan for discharge. Disposition - Course Course Of Treatment: Patient is here with roughly 2 weeks of sore throat, cough , nasal congestion. Patient's had no fever. Patient's overall well-appearing. Patient's only red flag symptoms that she is on CellCept for her vasculitis. Patient had blood reformatory leukocytosis which is actually less than her typical level of leukocytosis. Patient had a negative chest x-ray. Patient was treated with Tessalon Perles for her cough. - Diagnoses Provider Diagnoses: Hyperglycemia, Uncontrolled diabetes mellitus, Pharyngitis, Cough Discharge ED - Sign-Out/Discharge Documenting (check all that apply): Patient Departure - Patient will be discharged home. - Discharge Plan Condition: Stable Disposition: HOME Prescriptions: Benzonatate CAP* [Tessalon 100 MG CAP*] 100 mg PO TID #20 cap Patient Education Materials: Pharyngitis (ED), Diabetic Hyperglycemia (ED), Acute Cough (ED) Referrals: Kimberlyn Dhillon MD [Primary Care Provider] - 3 Days Additional Instructions: Follow up with your primary care provider in 1-3 days. Take medicine as prescribed. Return to the emergency department for high fever, worsening or trouble breathing, or any other concerning symptoms. - Billing Disposition and Condition Condition: STABLE Disposition: Home - Attestation Statements Document Initiated by Natalee: Yes Documenting Scribe: Kimberly Milan Provider For Whom Natalee is Documenting (Include Credential): Dr. Neil White MD Scribe Attestation: Kimberly Richmond scribed for Dr. Neil White MD on 08/29/19 at 2101. Scribe Documentation Reviewed: Yes Provider Attestation: The documentation as recorded by the Kimberly ruelas accurately reflects the service I personally performed and the decisions made by me, Dr. Neil White MD Status of Scribe Document: Viewed
[2019-08-29 15:24] LABS: ABS Basophils 0.1 10^3/ul (0-0.2); ABS Eosinophils 0.2 10^3/ul (0-0.6); ABS Lymphocytes 4.1 10^3/ul (1.0-4.8); ABS Monocytes 1.1 10^3/ul (0-0.8); ABS Neutrophils 11.5 10^3/ul (1.5-7.7); Eosinophil % 1.1 %; Hematocrit 37 % (35-47); Hemoglobin 12.6 g/dL (12.0-16.0); Lymphocyte % 24.3 %; Mean Corpuscular HGB Conc 34 g/dL (31-36); Mean Corpuscular Hemoglobin 31 pg (27-31); Mean Corpuscular Volume 92 fL (80-97); Mean Platelet Volume 6.8 fL (7.4-10.4); Platelet Count 358 10^3/uL (150-450); Red Blood Count 4.07 10^6 /uL (3.70-4.87); Red Cell Distribution Width 13 % (10-15)
[2019-08-29 16:06] LABS: Albumin 3.7 g/dL (3.2-5.2); BUN/Creatinine Ratio 21.3 (8-20); Calcium 9.4 mg/dL (8.6-10.3); EGFR African American 133.5 (>60); EGFR Non-African American 110.4 (>60); Globulin 3.6 g/dL (2-4); Potassium 4.2 mmol/L (3.5-5.0); Total Bilirubin 0.5 mg/dL (0.2-1.0); Total Protein 7.3 g/dL (6.4-8.9)
[2019-08-29 16:38] VITALS: BP 114/74
== END 2019-08-29 16:38 | disposition home or self-care (01) ==
LOC: ED 14:23
DX: E10.65 Type 1 diabetes mellitus with hyperglycemia (principal); Z79.4 Long term (current) use of insulin; J02.9 Acute pharyngitis, unspecified; R05 Cough; R07.89 Other chest pain; R09.81 Nasal congestion; J45.909 Unspecified asthma, uncomplicated; K21.9 Gastro-esophageal reflux disease without esophagitis; Z91.030 Bee allergy status; Z88.5 Allergy status to narcotic agent; Z88.2 Allergy status to sulfonamides; Z88.8 Allergy status to other drugs, medicaments and biological substances; Z91.048 Other nonmedicinal substance allergy status; Z87.891 Personal history of nicotine dependence
CPT/HCPCS: 36415; 71046; 80053; 84484; 85025; 93005; 99282

== ENCOUNTER 2019-10-14 16:19 | Inpatient (IN) | payer OTHER ==
--- OUTSIDE RECORDS SUMMARY | 2019-10-14 16:54 | XMS REPORT | Continuity of Care Document ---
:1980 External Reference #:[id number] Author Name Salma Ceron MD (transmitted by agent of provider Eva Griffin) Address [address] [place] [address] Care Team Providers Name Role Phone Mike Maradiaga MD - Rheumatology Care Team Information Dough Machine Operator Patel Bhat MD - Gastroenterology Care Team Information Dough Machine Operator Abad Dempsey MD - Dermatology Care Team Information Dough Machine Operator [phone] [facility] - Gynecology Care Team Information Dough Machine Operator Vinnie Gunderson MD - Obstetrics & Care Team Information Dough Machine Operator Gynecology Kimberlyn Dhillon MD - Internal Care Team Information Dough Machine Operator Medicine Leatha Vanegas M.D. - Hematology & Care Team Information Dough Machine Operator Oncology Anel Andersen DPM - Dependency Counselor Care Team Information Dough Machine Operator [facility] - Care Team Information Dough Machine Operator Hemstitcher Felix Jay MD - Dependency Counselor Care Team Information Dough Machine Operator Spencer Fabian MD - Endocrinology, Care Team Information Dough Machine Operator Diabetes & Metabolism Problems Active Problems Provider Date Multiple complications [...] MD Onset: 03/27/2019 Atherosclerotic heart disease of [place] coronary Mejia Valdivia MD Onset: 2018 artery without angina pectoris Shoulder joint pain Jak Booker MD Onset: 05/02/2019 Strain of rotator cuff capsule Jak Booker MD Onset: 05/02/2019 Social History Type Date Description Comments Sex Unknown Tobacco Use Start: Unknown Former Cigarette Smoker End: Unknown Smoking Status Reviewed: 10/10/19 Former Cigarette Smoker ETOH Use Denies alcohol [...] Medications SIG Qnty Indications Ordering Date Provider Aimovig inject sq once a 1ml G43.719 Chay S. 09/22/2019 140mg/ml month. Donavan Romero Solution Auto-Inject Unifine Pentips to use with Lantus 100units Spencer Fabian MD 04/11/2019 31G X 6 once daily if mm Misc needed for pump failure. Medical Compression as needed Dx 1units I83.93 [...] for Test Strips symptoms of Strips hypoglycemia Contour Next Blood use to test blood 75units Spencer Fabian MD 11/07/2018 Glucose Test sugar twice daily. Strips Freestyle Caridad [address] one sensor 6units E11.42 Spencer Fabian MD 2018 Day/Sensor/Flash every 10-14 days Monitoring System Misc Freestyle Caridad 14 use at least 4 1units E11.42 Spencer Fabian MD 10/11/2018 Day/[place]/Flash times daily with Monitoring System sensor Device Metoprolol Tartrate 1 tablet twice 60tabs Spencer Fabian MD 10/11/2018 daily 100mg Tablets Admelog in pump, max 180 30ml Spencer Fabian MD 10/11/2018 100Unit/ML units/day Solution Minimed Pump replace every 10units E10.65 Spencer Fabian MD 07/08/2018 [place] 3ML other day. dx Res 3ML e10.9 [...] mouth twice a day M.D. Tablets Dapsone Take Three Tablets 180tabs L95.9 Mike Maradiaga, 09/07/2017 25mg Tablets By Mouth Every Day M.D. Nexplanon Implant Dr Gunderson Unknown 07/01/2017 68mg Implant Loratadine 1 by mouth every 90tabs J30.9 Kimberlynjagjit Dhillon, 06/14/2017 10mg Tablets day M.D. Spironolactone Take One Tablet By 90tabs L68.0 Kimberlynjoann Dhillon, 04/27/2017 50mg Mouth Once Daily M.D. Tablets Atorvastatin Calcium take one tablet by 90tabs E78.2 Kimberlynjoann Dhillon, 12/29 mouth every M.D. 80mg Tablets evening Imodium A-D 1 by mouth twice a 60caps K31.84 Gianna Lopez, 12/02/2016 2mg day as needed M.D., FACP Capsules Cellcept 2 tabs by mouth 180tabs [...] Mouth Once Daily M.D. 40mg Tablets DR Mirtazapine 1 tab by mouth at Unknown [...] Godinez MD 0.3mg/0.3ML Solution Auto-Inject History Medications Mucinex 1 by mouth twice 14tabs Aziza Lares MD 08/22/2019 - 600mg Tablets a day 09/14/2019 ER 12HR Fluconazole 1 by mouth x 1 2tabs Sun Romano 06/30/2019 - 150mg dose. May repeat M.D. 09/14/2019 Tablets in 3 days if needed Oxycodone-Acetaminoph 1 tabs by mouth 18tabs Jak Booker MD 04/19/2019 - en every 4-6 hours 04/30/2019 5-325mg Tablets as needed for pain Cephalexin take 1 by mouth 12tabs Jak Booker MD 04/19/2019 - 500mg four times a day 04/25/2019 Tablets x 3 days post op Medications Administered in Office Medication SIG Qnty [...] Code Status Date Vaccine Reaction Lot # [id number] Given 06/01/2019 Hepatitis B Vaccine Adult [id number] Dosage 70181 Given 06/01/2019 Influenza Virus Vaccine, Quadrivalent, Split, Im Use [id number] 64228 Given 07/18/2018 Pneumococcal Conjugate no immediate reaction [id number] Vaccine 13 Valent For noted Intramuscular Use 79981 Given 05/12/2018 Influenza Virus Vaccine, No immediate reaction [id number] Quadrivalent, Split, noted. Preservative Free 36393 Given 06/14/2017 Tdap - [id number] Tetanus/Diptheria/Acellular Pertussis 78508 Given 06/01/2017 Influenza Virus Vaccine, no reaction noted [id number] Quadrivalent, Split, Preservative Free 10863 Given 04/02/2017 Pneumonia Vaccine Vital Signs Date Vital Result Comment 10/10/2019 11:29am Height 67 inches 5'7" Heart Rate 122 /min BP Systolic 140 mmHg BP Diastolic 80 mmHg Body Temperature 98.8 F O2 % BldC Oximetry 96 % 09/22/2019 3:22pm Height 67 inches 5'7" Weight 344.25 lb Heart Rate 68 /min BP Systolic Sitting 112 mmHg BP Diastolic Sitting 78 mmHg Respiratory Rate 20 /min BMI (Body Mass Index) 53.9 kg/m2 Results Test Acquired Date Facility Test Result H/L Range Note Laboratory test 09/22/2019 [facility] Osmolality 910 Normal 100-[address] Urine mOsm/[place] [address] [phone] Basic Metabolic 09/22/2019 [facility] Sodium 132 mmol/L Low 135-[address] [place], [place] [address] [phone] Potassium 3.9 mmol/L Normal 3.5-5.0 Chloride 98 mmol/L Low 101-111 Co2 Carbon Dioxide 24 mmol/L Normal 22-32 Anion Gap 10 mmol/L Normal 2-11 Glucose 380 mg/dL High 70-100 Blood Urea Nitrogen 9 mg/dL Normal 6-24 Creatinine 0.53 mg/dL Normal 0.51-0.95 BUN/Creatinine Ratio 17.0 Normal 8-20 Calcium 8.7 mg/dL Normal 8.6-10.3 Egfr Non- 129.8 >60 Egfr 157.1 >60 2 Laboratory 09/22/2019 [facility] TSH (Thyroid 0.56 Normal 0.34 -5.[address] Stim Horm) mcIU/mL [place], [place] [id number] [phone] Osmolality Serum 298 mOsm/kg High 275-295 Creatinine 24HR 09/22/2019 [facility] Urine Collection 24 hr Urine [address] [place] [address] [phone] Urine Total Volume 3450 mL Urine Creatinine Concentration 37.36 mg/dL Urine Creatinine/24 Hour 1288.92 mg/24Hr Normal 600-1800 Sodium 24HR 09/22/2019 [facility] Urine Sodium 62 mmol/L Urine [address] [place] [address] [phone] Urine Sodium/24 Hour 213 mmol/24 Normal 40-220 Potassium 24HR 09/22/2019 [facility] Urine Potassium 14.0 mmol/ L Urine [address] [place] [address] [phone] Urine Potassium/24 Hour 48 mmol/24h Normal 25-125 Laboratory test 09/15/2019 [facility] Erythrocyte Sed 94 mm/Hr High 0-19 [address] [place] [address] [phone] C Reactive Protein 27.65 mg/L High <8.01 4 CBC Auto 09/15/2019 [facility] White Blood 15.1 10^3/uL High 3.5-10.[address] [place] [address] [phone] Red Blood Count 4.04 10^6/uL Normal 3.70-4.87 Hemoglobin 12.4 g/dL Normal 12.0-16.0 Hematocrit 37 % Normal 35-47 Mean Corpuscular Volume 92 fL Normal 80-97 Mean Corpuscular Hemoglobin 31 pg Normal 27-31 Mean Corpuscular HGB Conc 33 g/dL Normal 31-36 Red Cell Distribution Width 12 % Normal 10-15 Platelet Count 367 10^3/uL Normal 150-450 Mean Platelet Volume 7.0 fL Low 7.4-10.4 Abs Neutrophils 9.0 10^3/uL High 1.5-7.7 Abs Lymphocytes 4.5 10^3/uL Normal 1.0-4.8 Abs Monocytes 1.3 10^3/uL High 0-0.8 Abs Eosinophils 0.3 10^3/uL Normal 0-0.6 Abs Basophils 0.1 10^3/uL Normal 0-0.2 Abs Nucleated RBC 0.0 10^3/uL Granulocyte % 59.6 % Lymphocyte % 29.8 % Monocyte % 8.4 % Eosinophil % 1.7 % Basophil % 0.5 % Nucleated Red Blood Cells % 0.0 Comp Metabolic Panel 09/15/2019 [facility] Sodium 134 mmol/L Low 135-[address] [place] [address] [phone] Potassium 3.9 mmol/L Normal 3.5-5.0 Chloride 100 mmol/L Low 101-111 Co2 Carbon Dioxide 26 mmol/L Normal 22-32 Anion Gap 8 mmol/L Normal 2-11 Glucose 326 mg/dL High 70-100 Blood Urea Nitrogen 8 mg/dL Normal 6-24 Creatinine 0.51 mg/dL Normal 0.51-0.95 BUN/Creatinine Ratio 15.7 Normal 8-20 Total Protein 6.7 g/dL Normal 6.4-8.9 Albumin 3.4 g/dL Normal 3.2-5.2 Globulin 3.3 g/dL Normal 2-4 Albumin/Globulin Ratio 1.0 Normal 1-3 Total Bilirubin 0.40 mg/dL Normal 0.2-1.0 Alkaline Phosphatase 147 U/L High 34-104 Alt 9 U/L Normal 7-52 Ast 7 U/L Low 13-39 Egfr Non- 135.7 >60 Egfr 164.2 >60 5 Calcium 8.8 mg/dL Normal 8.6-10.3 Comp Metabolic Panel 08/29/2019 [facility] Sodium 129 mmol/L Low 135-[address] [place] [address] [phone] Potassium 4.2 mmol/L Normal 3.5-5.0 Chloride 98 mmol/L Low 101-111 Co2 Carbon Dioxide 23 mmol/L Normal 22-32 Anion Gap 8 mmol/L Normal 2-11 Glucose 455 mg/dL High 70-100 Blood Urea Nitrogen 13 mg/dL Normal 6-24 Creatinine 0.61 mg/dL Normal 0.51-0.95 BUN/Creatinine Ratio 21.3 High 8-20 Calcium 9.4 mg/dL Normal 8.6-10.3 Total Protein 7.3 g/dL Normal 6.4-8.9 Albumin 3.7 g/dL Normal 3.2-5.2 Globulin 3.6 g/dL Normal 2-4 Albumin/Globulin Ratio 1.0 Normal 1-3 Total Bilirubin 0.50 mg/dL Normal 0.2-1.0 Alkaline Phosphatase 137 U/L High 34-104 Alt 12 U/L Normal 7-52 Ast 10 U/L Low 13-39 Egfr Non- 110.4 >60 Egfr 133.5 >60 6 Laboratory test 08/29/2019 [facility] Troponin-I 0.00 <0.03 [address] (TnI) ng/[place] [address] [phone] CBC Auto Diff 08/29/2019 [facility] White Blood 17.0 High 3.5- 10.[address] Count 10^3/[place] [address] [phone] Red Blood Count 4.07 10^6/uL Normal 3.70-4.87 Hemoglobin 12.6 g/dL Normal 12.0-16.0 Hematocrit 37 % Normal 35-47 Mean Corpuscular Volume 92 fL Normal 80-97 Mean Corpuscular Hemoglobin 31 pg Normal 27-31 Mean Corpuscular HGB Conc 34 g/dL Normal 31-36 Red Cell Distribution Width 13 % Normal 10-15 Platelet Count 358 10^3/uL Normal 150-450 Mean Platelet Volume 6.8 fL Low 7.4-10.4 Abs Neutrophils 11.5 10^3/uL High 1.5-7.7 Abs Lymphocytes 4.1 10^3/uL Normal 1.0-4.8 Abs Monocytes 1.1 10^3/uL High 0-0.8 Abs Eosinophils 0.2 10^3/uL Normal 0-0.6 Abs Basophils 0.1 10^3/uL Normal 0-0.2 Abs Nucleated RBC 0.0 10^3/uL Granulocyte % 67.3 % Lymphocyte % 24.3 % Monocyte % 6.7 % Eosinophil % 1.1 % Basophil % 0.6 % Nucleated Red Blood Cells % 0.0 Wound 07/29/2019 [facility] Wound/Misc SEE RESULT 8, 9 Culture/Sensi [address] [place] [address] Stain [phone] Laboratory test 07/29/2019 [facility] MRSA/S Aureus SEE RESULT [address] Ssti PCR BELOW [place], [place] [address] [phone] Wound 06/27/2019 [facility] Wound/Misc SEE RESULT 11 Culture/Sensi [address] [place] [address] Stain [phone] Laboratory test 06/27/2019 [facility] MRSA/S Aureus SEE RESULT [address] [address] [phone] Wound 06/25/2019 [facility] Wound/Misc SEE RESULT 13, Culture/Sensi [address] Culture-Gram BELOW 14 [place] [address] Stain [phone] Laboratory test 06/25/2019 [facility] MRSA/S Aureus SEE RESULT [address] [place] [address] [phone] Laboratory test 04/19/2019 [facility] Point of Care 184 mg/dL High 70- [address] Glucose 100 [place] [address] [phone] Laboratory test 04/19/2019 [facility] Point of Care 138 mg/dL High 70- [address] Glucose 100 [place] [address] [phone] 1 Length of time Urine Collected?: 24 Hour Collection 2 Because ethnic data is not always readily [...] 15-29 5 Kidney failure <15 (or dialysis) 3 Please check labs 2 days before follow up 4 Please check labs 2 days before follow up 5 Because ethnic data is not always readily [...] 15-29 5 Kidney failure <15 (or dialysis) 6 Because ethnic data is not always readily [...] 15-29 5 Kidney failure <15 (or dialysis) 7 Troponin-I testing on Plasma Separator Tubes (PST) has a known false positive rate of 0.20-0.40%. All positive troponins reflex immediately to secondary confirmatory testing. Using the Navmii DxI 800 Access Immunoassay systems, the 99th percentile upper reference limit was demonstrated to be < 0.03 ng/mL. 8 [id number] 9 SEE RESULT BELOW Name: JAYY CANTU : [address]: Yue Mcrae MD Acct: [id number] Unit: [id number] AGE: 38 Location: [facility] Re07/29/19 SEX: F Status: DEP ER SPEC: [id number] [place]: 07/29/19-[address] [facility] [address]: Yue Mcrae MD REQ: [id number] RECD: 07/29/19 STATUS: RES OTHR DR: Kimberlyn Dhillon MD _ [facility] ORDERED: MRSA/SA SSTI, Culture Stain COMMENTS: [id number] Procedure Result Reported Site MRSA/S. aureus SSTI PCR PENDING Wound/Misc Gram Stain Final 07/29/19- 1505 ML 2+ Neutrophils 3+ Gram Positive Cocci Wound/Misc Culture PENDING * ML - Main Lab . END OF REPORT DEPARTMENT OF PATHOLOGY, [address] [place] [address] Simón Uriarte M.D. Director [facility] # [id number] 10 SEE RESULT BELOW Name: JAYY CANTU : [address]: Yue Mcrae MD Acct: [id number] Unit: [id number] AGE: 38 Location: [facility] Re07/29/19 SEX: F Status: DEP ER SPEC: [id number] [place]: 07/29/19-[address] [facility] [address]: Yue Mcrae MD REQ: [id number] RECD: 07/29/19 STATUS: JOEL GARCIA DR: Kimberlyn Dhillon MD _ SOURCE: [facility] SPDESC:[facility] ORDERED: MRSA/SA SSTI, Culture Stain COMMENTS: Verbal to [id number] by [id number] at 1638 on 07/29/19. Results read back accurately. [id number] Procedure Result Reported Site MRSA/S. aureus SSTI PCR Final 07/29/19- 1640 ML Organism 1 MRSA NEGATIVE Organism 2 S.AUREUS POSITIVE As with all diagnostic procedures, the laboratory results obtained should be used in conjunction with other clinical information available to the physician, including confirmation by another method, as applicable. Wound/Misc Gram Stain Final 07/29/19- 1505 ML 2+ Neutrophils 3+ Gram Positive Cocci Wound/Misc Culture Final 07/31/19914 ML Organism 1 STAPHYLOCOCCUS AUREUS Quantity 3+ CONTINUED ON NEXT PAGE DEPARTMENT OF PATHOLOGY, [address] [place] [address] Simón Uriarte M.D. Director [facility] # [id number] Specimen: [id number] Collected: 07/29/19 Received: 07/29/19 (Continued) Procedure Result Reported Site Wound/Misc Culture Final (continued) 07/31/19914 1. STAPHYLOCOCCUS AUREUS M.I.C. RX --------- ------ [...] These antibiotics are not available in the [facility] Formulary Contact the Microbiology Department for any additional antibiotic reporting. * ML - Main Lab . END OF REPORT DEPARTMENT OF PATHOLOGY, [address] [place] [address] Simón Uriarte M.D. Director [facility] # [id number] 11 SEE RESULT BELOW Name: JAYY CANTU : [address]: Heath Barber MD Acct: [id number] Unit: [id number] AGE: 38 Location: ED Re06/27/19 SEX: F Status: DEP ER SPEC: [id number] [place]: 06/27/19-[address] [facility] [address]: Heath Barber MD REQ: [id number] RECD: 06/27/19 STATUS:RES OT DR: Kimberlyn Dhillon MD _ SOURCE: [facility] SPDESC: ORDERED: MRSA/SA SSTI, Culture Stain QUERIES: Specimen Description R AXILLA ABSCESS Procedure Result Reported Site MRSA/S. aureus SSTI PCR PENDING Wound/Misc Gram Stain Preliminary 06/27/19- 1919 ML 4+ Neutrophils 2+ Epithelial Cells 3+ Gram Positive Cocci in Clusters, resembling Staph Wound/Misc Culture PENDING * ML - Main Lab . END OF REPORT DEPARTMENT OF PATHOLOGY, [address] [place] [address] Simón Uriarte M.D. Director [facility] # [id number] 12 SEE RESULT BELOW Name: JAYY CANTU : [address]: Heath Barber MD Acct: [id number] Unit: [id number] AGE: 38 Location: ED Re06/27/19 SEX: F Status: DEP ER SPEC: [id number] [place]: 06/27/19-[address] [facility] [address]: Heath Barber MD REQ: [id number] RECD: 06/27/19 STATUS:JOEL GARCIA DR: Kimberlyn Dhillon MD _ SOURCE: [facility]: ORDERED: MRSA/SA SSTI, Culture Stain COMMENTS: Verbal to [id number] by [id number] at 2032 on 06/27/19. Results read back [...] method, as applicable. Wound/Misc Gram Stain Final 06/28/19- 731 ML 3+ Neutrophils 1+ Epithelial Cells 2+ Gram Positive Cocci Wound/Misc Culture Final 06/29/19916 ML Organism 1 STAPHYLOCOCCUS AUREUS Quantity 3+ CONTINUED ON NEXT PAGE DEPARTMENT OF PATHOLOGY, [address] [place] [address] Simón Uriarte M.D. Director [facility] # [id number] Specimen: [id number] Collected: 06/27/19 Received: 06/27/19 (Continued) Procedure Result [...] These antibiotics are not available in the [facility] Formulary Contact the Microbiology Department for any additional antibiotic reporting. * - [facility] Lab . END OF REPORT DEPARTMENT OF PATHOLOGY, [address] [place] [address] Simón Uriarte M.D. Director [facility] # [id number] 13 [id number] 14 SEE RESULT BELOW Name: JAYY CANTU : [address]: Chay Olivas MD Acct: [id number] Unit: [id number] AGE: 38 Location: [facility] Re06/25/19 SEX: F Status: DEP ER SPEC: [id number] [place]: 06/25/19-[address] [facility] [address]: Erin CHAVEZ REQ: [id number] RECD: 06/25/19-1311 STATUS: SCOTT GARCIA DR: Kimberlyn Olivas MD _ SOURCE: [facility] SPDES[facility]: ORDERED: MRSA/SA SSTI, Culture Stain COMMENTS: [id number] Procedure Result Reported Site MRSA/S. aureus SSTI PCR PENDING Wound/Misc Gram Stain Final 06/25/19- 1502 ML 4+ Neutrophils 1+ Epithelial Cells 3+ Gram Positive Cocci Wound/Misc Culture PENDING * ML - Main Lab . END OF REPORT DEPARTMENT OF PATHOLOGY, [address] [place] [address] Simón Uriarte M.D. Director [facility] # [id number] 15 SEE RESULT BELOW Name: JAYY CANTU : [address]: Chay Olivas MD Acct: [id number] Unit: [id number] AGE: 38 Location: [facility] Re06/25/19 SEX: F Status: DEP ER SPEC: [id number] [place]: 06/25/19-[address] [facility] [address]: Erin CHAVEZ REQ: [id number] RECD: 06/25/19-1311 STATUS:JOEL [facility] DR: Kimberlyn Olivas MD _ SOURCE: [facility]: ORDERED: MRSA/SA SSTI, Culture Stain COMMENTS: [id number] Verbal to [id number] by [id number] at 1625 on 06/25/19. Results read back [...] CONTINUED ON NEXT PAGE DEPARTMENT OF PATHOLOGY, [address] [place] [address] Simón Uriarte M.D. Director [facility] # [id number] Specimen: [id number] Collected: 06/25/19 Received: 06/25/19 (Continued) Procedure Result Reported Site Wound/Misc Culture Final (continued) 06/27/19 1300 1. STAPHYLOCOCCUS AUREUS M.I.C. RX --------- ------ [...] These antibiotics are not available in the [facility] Formulary Contact the Microbiology Department for any additional antibiotic reporting. * ML - Main Lab . END OF REPORT DEPARTMENT OF PATHOLOGY, [address] [place] [address] Simón Uriarte M.D. Director [facility] # [id number] 16 Label Designer: [id number] Label Designer: [id number] Procedures Date Code Description Status 06/08/2019 10654 Inject/Drain Joint/Bursa Major W/O US Completed 04/19/2019 52603 Arthroscopy Shoulder,W/Rotator Cuff Repair Completed 04/19/2019 65591 Arthroscopy,Shoulder Decompression Of Subacromial Completed Space W/Acromio 12/24/2016 [id number] Diabetic Retinal Eye Exam Completed Medical Devices Description No Information Available Encounters Type Date Location Provider Dx Diagnosis Office Visit 09/22/2019 [facility] Adilson Jack, G43.009 Migraine w/o 3:00p Clinic [facility] LE[facility] aura, not intractable, w/o status migrainosus M54.2 Cervicalgia Office Visit 09/15/2019 3:30p [facility] Internal Gianna Jessica, J02.9 Acute pharyngitis, Medicine - Tian Go, FACP unspecified E87.1 Hypo-osmolality and hyponatremia Office Visit 07/14/2019 10:30a [facility] Brett Rojas L03.319 Cellulitis of [facility] [place] MD Stephania, trunk, unspecified FACS E66.01 Morbid (severe) obesity due to excess calories Office Visit 06/29/2019 2:00p [facility] Internal Giannajessica Lopez, L02.411 Cut[facility], FACP abscess of right axilla E11.9 Type 2 diabetes mellitus without complications L95.9 Vasculitis limited to the skin, unspecified Office Visit 06/08/2019 2:30p [place] Jak Booker M75.42 Impingement [facility] [place] syndrome of left [place] shoulder Office Visit 06/01/2019 12:10p [facility] Internal Kimberlyn M25.362 Other Medicine [facility] Dhillon M.D. instability, left knee Z23 Encounter for immunization Office Visit 05/02/2019 2:15p [facility] Jak Booker, M25.512 Pain in left at [place] shoulder S46.011A Strain of musc/tend the rotator cuff of right shoulder, init [facility] 1:50p Asscherry fountain M.D. sleep apnea Hospitalists (adult) (pediatric) [facility] Obstructive 1:49p cherry Rojas M.D. sleep apnea Hospitalists (adult) (pediatric) E11.9 Type 2 diabetes mellitus without complications Z79.4 skilled nursing (current) use of insulin F41.9 Anxiety disorder, unspecified Assessments Date Code Description Provider 10/10/2019 J31.0 Chronic rhinitis Salma Ceron MD 10/10/2019 E11.9 Type 2 diabetes mellitus without Salma Ceron MD complications 10/10/2019 F33.0 Major depressive disorder, recurrent, Salma Ceron MD mild 10/10/2019 Z23 Encounter for immunization Salma Ceron MD 10/10/2019 Z11.3 Encounter for screening for infections Salma Ceron MD with a predominantly sexual mode of transmission 09/22/2019 G43.009 Migraine without aura, not intractable, Adilson Jack, QUALITY LEAD without status migrainosus 09/22/2019 M54.2 Cervicalgia Adilson Jack, QUALITY LEAD 09/15/2019 J02.9 Acute pharyngitis, unspecified Gianna Lopez M.D., FACP 09/15/2019 E87.1 Hypo-osmolality and hyponatremia Gianna Lopez M.D., FACP 07/14/2019 L03.319 Cellulitis of trunk, unspecified Brett Cat MD, FACS 07/14/2019 E66.01 Morbid (severe) obesity due to excess Brett Cat MD, FACS calories 06/29/2019 L02.411 Cutaneous abscess of right axilla [...] 04/20/2019 Z98.890 Other specified postprocedural states SCOTT oJe 04/20/2019 G47.33 Obstructive sleep apnea (adult) Ed Hylton M.D. (pediatric) 04/19/2019 G47.33 Obstructive sleep apnea (adult) Ed Hylton M.D. (pediatric) 04/19/2019 E11.9 Type 2 diabetes mellitus without Ed yHlton M.D. complications 04/19/2019 M75.41 Impingement syndrome of right shoulder Jak Booker MD 04/19/2019 Z79.4 skilled nursing (current) use of insulin Ed Hylton M.D. [...] Jak Booker MD Plan of Treatment Future Appointment(s):10/27/2019 4:30 pm - Gianna Lopez M.D., FACP at [facility] Internal Medicine - [facility]10/17/2019 2:00 pm - Gilmer Lewis MD at [facility]10/16/2019 2:00 pm - Yadira Bobby M.D. at [facility]11/07/2019 10:40 am - Mike Maradiaga M.D. at [facility]12/21/2019 3:30 pm - Adilson Jack NP at [facility] [id number]/02/2019 1:40 pm - Spencer Fabian MD at [place] [facility]12/01/2019 1:00 pm - Nurse Visit A at [facility] Internal Medicine - [facility]10/10/2019 - Salma Ceron MDJ31.0 Chronic egneynxcV63.9 Type 2 diabetes mellitus without [id number] Major depressive disorder, recurrent, mildFollow up:2 [id number] Encounter for [id number] Encounter for screening for infections with a predominantly sexual mode of transmission Functional Status Description No Information Available Mental Status Description No Information Available Referrals Refer to Reason for Referral Status Appt Date Created Wound Clinic Abscess drained in Emergency Department 06/27/19. Needs Sent ongoing packing care. 06/29 faxed referral, tried to call they are closed till 06/30. [address] [place] [id number] [phone] Yadira Bobby MD Sent 06/19/2019 16 [facility] [place] [id number] [phone]
--- OUTSIDE RECORDS SUMMARY | 2019-10-14 16:54 | XMS REPORT ---
:1980 Author Organization [facility] Care Team Providers Name Role Phone Unavailable Unavailable Unavailable Problems Condition Condition Condition Status Onset Resolution Last Treating Comments Name Details Category Date Date Treatment Clinician Date Cutaneous Cutaneous Diagnosis Active 2018-08 Lu abscess of abscess of 08-30 Nguyen right right axilla axilla Pain frequent Pain Mgmt Resolve 2018-082019-07-03 Anita pain d 08-31 12:37:00 (Rusty) 08:45: Darci 00 [id number] Respiratory dyspnea Respirator Resolve 2018-082019-07-03 Anita present y d 08-31 12:37:00 (Rusty) 08:45: Bejarano 00 [id number] Endo/Dano diabetic Endo/Dano Resolve 2018-082019-07-03 Anita foot care d 08-31 12:37:00 (Rusty) 08:45: Bejarano 00 [id number] Integument surgical Integument Resolve 2018-082019-07-25 Anita wound d 08-31 09:40:00 (Rusty) present 08:45: Bejarano 00 [id number] Nutrition nutritional Nutrition Resolve 2018-082019-07-03 Anita restriction d 08-31 12:37:00 (Rusty) s 08:45: Bejarano 00 [id number] Elimination urinary Eliminatio Resolve 2018-082019-07-03 Anita incontinenc n d 08-31 12:37:00 (Rusty) e 08:45: Bejarano 00 [id number] Neuro confusion Neuro/Emot Resolve 2018-082019-07-05 Anita present ion d 08-31 12:25:00 (Rusty) 08:45: Bejarano 00 [id number] Neuro anxiety Neuro/Emot Resolve 2018-082019-07-05 Anita present ion d 08-31 12:25:00 (Rusty) 08:45: Bejarano 00 [id number] Neuro depressive Neuro/Emot Resolve 2018-082019-07-05 Anita feelings ion d 08-31 12:25:00 (Rusty) present 08:45: Bejarano 00 [id number] Neuro impaired Neuro/Emot Resolve 2018-082019-07-05 Anita decision-ma ion d 08-31 12:25:00 (Rusty) sumanth 08:45: Bejarano 00 [id number] Activity ADL Activity Resolve 2018-082019-07-05 Anita assistance d 08-31 12:25:00 (Rusty) required 08:45: Bejarano 00 [id number] Activity self-care Activity Resolve 2018-082019-07-05 Anita deficit d 08-31 12:25:00 (Rusty) 08:45: Bejarano 00 [id number] Safety fall risk Safety Resolve 2018-082019-07-03 Anita factor d 08-31 12:37:00 (Rusty) present 08:45: Bejarano 00 [id number] Safety risk for Safety Resolve 2018-082019-07-03 Anita hospitaliza d 08-31 12:37:00 (Rusty) tion 08:45: Bejarano 00 [id number] Medication oral med Meds Resolve 2018-082019-07-03 Anita assistance d 08-31 12:37:00 (Rusty) required 08:45: Bejarano 00 [id number] Medication injectable Meds Resolve 2018-082019-07-03 Anita med d 08-31 12:37:00 (Rusty) assistance 08:45: Bejarano required 00 [id number] Endo/Dano anti-coagul Endo/Dano Resolve 2018-082019-07-03 Lu ation d 09-02 12:37:00 Nguyen therapy 12:37: 00 Endo/Dano anti-coagul Endo/Dano Resolve 2018-082019-07-05 Lu ation d 09-04 12:25:00 Nguyen therapy 12:25: 00 Safety risk for Safety Resolve 2018-082019-07-05 Lu hospitaliza d 09-04 12:25:00 Nguyen tion 12:25: 00 Endo/Dano anti-coagul Endo/Dano Resolve 2018-082019-07-17 Lu ation d 09-11 11:00:00 Nguyen therapy 10:36: 00 Neuro impaired Neuro/Emot Resolve 2018-082019-07-17 Lu ren d 09-11 11:00:00 Patrick julio 10:36: 00 Safety risk for Safety Resolve 2018-082019-07-17 Lu suárez 09-11 11:00:00 Patrick dangelo 10:36: 00 [...] Unknown 10 mg 10 mg 08-31 MDKimberlyn capsule capsule melatonin melatonin 2018-08- Yes Dhillon Unknown Unknown 10 mg 10 mg 08-31 MDKimberlyn tablet tablet albuterol albuterol 2018-08- Yes Dhillon Unknown Unknown sulfate HFA sulfate HFA 08-31 MDKimberlyn 90 90 mcg/actuati mcg/actuati on aerosol on aerosol inhaler inhaler loperamide loperamide 2018-08- Yes Dhillon Unknown Unknown 2 mg 2 mg 08-31 MDKimberlyn capsule capsule LORazepam 1 LORazepam 1 2018-08- Yes Alejo Unknown Unknown mg tablet mg tablet 08-31 MD,Kimberlyn mirtazapine mirtazapine 2018-08- Yes Dhillon Unknown Unknown 15 mg 15 mg 08-31 ,Kimberlyn tablet tablet spironolact spironolact 2018-08- Yes Dhillon Unknown Unknown one 50 mg one 50 mg 08-31 MD,Kimberlyn tablet tablet SUMAtriptan SUMAtriptan 2018-08- Yes Dhillon Unknown Unknown 100 mg 100 mg 08-31 ,Kimberlyn tablet tablet topiramate topiramate 2018-08- Yes Dhillon Unknown Unknown 100 mg 100 mg 08-31 MD,Kimberlyn tablet tablet metoprolol metoprolol 2018-08- Yes Dhillon [...] tablet mg tablet 08-31 ,Kimberlyn gabapentin gabapentin 2018-08- Yes Dhillon Unknown Unknown 600 mg 600 mg 08-31 ,Kimberlyn tablet tablet gabapentin gabapentin 2018-08- Yes Dhillon Unknown Unknown 600 mg 600 mg 08-31 ,Kimberlyn tablet tablet lispro lispro 2018-08- Yes Dhillon Unknown Unknown insulin insulin 08-31 ,Kimberlyn Aimovig Aimovig 2018-08- Yes Dhillon Unknown Unknown Autoinjecto Autoinjecto 08-31 Kimberlyn CAMARENA r 70 mg/mL r 70 mg/mL subcutaneou subcutaneou s s auto-inject auto-inject or or prazosin 1 prazosin 1 2018-08- Yes Dhillon Unknown Unknown mg capsule mg capsule 08-31 ,Kimberlyn medical medical 2018-08- Yes Dhillon Unknown Unknown marijuana marijuana 08-31 Kimberlyn CAMARENA acetaminoph acetaminoph 2018-08- Yes Dhillon Unknown Unknown en wtih en wtih 08-31 Kimberlyn CAMARENA codeine #3 codeine #3 mycophenola mycophenola 2018-08- Yes Dhillon Unknown Unknown te mofetil te mofetil 08-31 Kimberlyn CAMARENA 500 mg 500 mg tablet tablet zolpidem 10 zolpidem 10 2018-08- Yes Alejo Unknown Unknown mg tablet mg tablet 08-31 Kimberlyn CAMARENA pantoprazol pantoprazol 2018-08- Yes Alejo Unknown Unknown [...]
--- OUTSIDE RECORDS SUMMARY | 2019-10-14 16:54 | XMS REPORT | Continuity of Care Document ---
:1980 External Reference #:[id number] Author Name Adilson Jack NP (transmitted by agent of provider Ellen Leonard) Address [address], [place] [address] Care Team Providers Name Role Phone Mike Maradiaga MD - Rheumatology Care Team Information Geek Squad Agent [phone] Patel Bhat MD - Gastroenterology Care Team Information Geek Squad Agent Abad Dempsey MD - Dermatology Care Team Information Geek Squad Agent [facility] - Gynecology Care Team Information Geek Squad Agent [phone] Vinnie Gunderson MD - Obstetrics & Care Team Information Geek Squad Agent [phone] Gynecology Kimberlyn Dhillon MD - Internal Care Team Information Geek Squad Agent [phone] Medicine Leatha Vanegas M.D. 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 Donavan Romero Solution Auto-Inject [...] 4 1units E11.42 Spencer Fabian MD 10/11/2018 Day/[place]/Flash times daily with Monitoring System sensor Device Metoprolol Tartrate 1 tablet twice 60tabs Palmer Coch, MD 10/11/2018 daily 100mg Tablets Admelog in pump, max 180 30ml Spencer Fabian MD 10/11/2018 100Unit/ML units/day Solution Minimed Pump replace every 10units E10.65 Spencer Fabian MD 07/08/2018 [place] 3ML other day. dx Res 3ML e10.9 Misc Infusion Set 23" 9mm change infusion 10units E10.65 Spencer Fabian MD 2017 Tubing set as directed. 23" Misc Colace 1 tab by mouth 2-3 90caps K59.00 Kimberlynjoann Dhillon, 05/12/2018 100mg Capsules times a day [...] Loratadine 1 by mouth every 90tabs J30.9 [facility], 06/14/2017 10mg Tablets day M.D. Spironolactone Take One Tablet By 90tabs L68.0 Kimberlynjoann Dhillon, 04/27/2017 50mg Mouth Once Daily M.D. Tablets Atorvastatin Calcium take one tablet by 90tabs E78.2 Kimberlynjagjit Dhillon, 12/29 mouth every M.D. 80mg Tablets evening Imodium A-D 1 by mouth twice a 60caps K31.84 12/02/2016 2mg day prn Juan Antonio M.D. Capsules Cellcept 2 tabs by mouth [...] every Unknown 20mg day Caps DR Coughlin Epipen 2-Amos use as directed 2units Dedira Godinez MD 0.3mg/0.3ML Solution Auto-Inject Tums 1 [...] Unknown 10mg every night at Tablets bedtime Cetirizine HCL 1 by mouth every Unknown 10mg day prn Tablets Artificial Tears drops to eyes prn Unknown Solution History Medications Mucinex 1 by mouth 14taekaterina Lares MD 08/22/2019 - 600mg twice a day 09/14/2019 Tablets ER 12HR Fluconazole 1 by mouth x 1 2tabs Sun Romano, 06/30/2019 - 150mg dose. May M.D. 09/14/2019 Tablets repeat in 3 days if needed Oxycodone-Acetamino 1 tabs by mouth 18taekaterina Booker MD 04/19/2019 - phen every 4-6 hours 04/30/2019 5-325mg as needed for Tablets pain Cephalexin take 1 by mouth 12taekaterina Booker MD 04/19/2019 - 500mg four times a 04/25/2019 Tablets day x 3 days post op [place] to be used once 100units E10.65 Spencer Fabian MD 04/07/2019 - 32G X 6 per day with 04/10/2019 mm Misc Lantus in case of pump failure . BD Pen use 4 times 100units Spencer Fabian MD 04/05/2019 - Needle/Micro/Ultra- daily with 04/10/2019 Fine/32G X 6mm insulin 32G injections, X 6 mm Misc when pump fails Medications Administered in Office Medication SIG Qnty Indications Ordering Provider Date Triamcinolone (Kenalog) Jak Booker MD 06/08/2019 Injection Triamcinolone (Kenalog) Jak Booker MD 02/10/2019 Injection Triamcinolone (Kenalog) Jak Booker MD 11/10/2018 Injection Triamcinolone (Kenalog) Jak oBoker MD 04/21/2018 Injection Triamcinolone (Kenalog) Jak Booker MD 01/11/2018 Injection Triamcinolone (Kenalog) Jak Booker MD 10/14/2017 Injection Triamcinolone (Kenalog) Jak Booker MD 05/07/2017 Injection Immunizations CPT Code Status Date Vaccine Reaction Lot # [id number] Given 06/01/2019 Hepatitis B Vaccine Adult [id number] Dosage 99396 Given 06/01/2019 Influenza Virus Vaccine, Quadrivalent, Split, Im Use 6-35mo 81737 Given 07/18/2018 Pneumococcal Conjugate no immediate reaction [id number] Vaccine 13 Valent For noted Intramuscular Use 10827 Given 05/12/2018 Influenza Virus Vaccine, No immediate reaction [id number] Quadrivalent, Split, noted. Preservative Free 54443 Given 06/14/2017 Tdap - [id number] Tetanus/Diptheria/Acellular Pertussis 92913 Given 06/01/2017 Influenza Virus Vaccine, no reaction noted [id number] Quadrivalent, Split, Preservative Free 13583 Given 04/02/2017 Pneumonia Vaccine Vital Signs Date Vital Result Comment 09/22/2019 3:22pm Height 67 inches 5'7" Weight 344.25 lb Heart Rate 68 /min BP Systolic Sitting 112 mmHg BP Diastolic Sitting 78 mmHg Respiratory Rate 20 /min BMI (Body Mass Index) 53.9 kg/m2 09/15/2019 2:57pm Height 67 inches 5'7" Weight 342.00 lb Heart Rate 90 /min BP Systolic Sitting 130 mmHg Lue reg (forearm) BP Diastolic Sitting 79 mmHg Lue reg (forearm) O2 % BldC Oximetry 96 % BMI (Body Mass Index) 53.6 kg/m2 Results Test Acquired Date Facility Test Result H/L Range Note Laboratory test 09/15/2019 [facility] Erythrocyte Sed 94 mm/Hr High 0-[address] [place] [address] [phone] C Reactive Protein 27.65 mg/L High <8.01 2 CBC Auto 09/15/2019 [facility] White Blood 15.1 10^3/uL High 3.5-10.[address] [place] [address] [phone] Red Blood Count 4.04 10^6/uL Normal 3.70-4.87 [...] Cells % 0.0 Comp Metabolic Panel 09/15/2019 [facility] Sodium 134 mmol/L Low 135-[address] [place] [address] [phone] Potassium 3.9 mmol/L Normal 3.5-5.0 Chloride 100 [...] Egfr Non- 135.7 >60 Egfr 164.2 >60 3 Calcium 8.8 mg/dL Normal 8.6-10.3 CBC Auto 08/29/2019 [facility] White Blood 17.0 10^3/uL High 3.5-10.[address] [place] [address] [phone] Red Blood Count 4.07 10^6/uL Normal 3.70-4.87 [...] Red Blood Cells % 0.0 Laboratory test 08/29/2019 [facility] Troponin-I 0.00 ng/mL < 0.[address] (TnI) [place] [address] [phone] Comp Metabolic 08/29/2019 [facility] Sodium 129 mmol/L Low 135 -[address] [place] [address] [phone] Potassium 4.2 mmol/L Normal 3.5-5.0 Chloride 98 [...] Egfr Non- 110.4 >60 Egfr 133.5 >60 5 Wound 07/29/2019 [facility] Wound/Misc SEE 6, 7 Culture/Sensi [address] [place] [address] Stain BELOW [phone] Laboratory test 07/29/2019 [facility] MRSA/S Aureus SEE [address] [address] BELOW [phone] Wound 06/27/2019 [facility] Wound/Misc SEE 9 Culture/Sensi [address] [address] Stain BELOW [phone] Laboratory test 06/27/2019 [facility] MRSA/S Aureus SEE [address] [address] BELOW [phone] Laboratory test 06/25/2019 [facility] MRSA/S Aureus SEE 11, finding [address] Ssti PCR RESULT 12 [place] [address] BELOW [phone] Wound 06/25/2019 [facility] Wound/Misc SEE 13 Culture/Sensi [address] [place] [address] Stain BELOW [phone] Laboratory test 04/19/2019 [facility] Point of Care 184 High 70-100 [address] Glucose mg/[place] [address] [phone] Laboratory test 04/19/2019 [facility] Point of Care 138 High 70-100 [address] Glucose mg/[place] [address] [phone] Laboratory test 04/05/2019 [facility] Hemoglobin A1c 5.8 % High 4.0-5.6 [address] (Glyco HGB) [place] [address] [phone] Laboratory test 03/27/2019 [facility] Hepatitis B Not Abnormal Immune finding [address] J[place] [address] [phone] Urine 03/27/2019 [facility] Ur < 15.[address] Microalbumin mg/[place] [address] (mg/L) [phone] Urine Creatinine 130.12 mg/dL Urine Microalbumin/Creatinine TNP <31 17 Lipid Profile 03/27/2019 [facility] Triglycerides 161 mg/dL 18 (Trig/Chol/HDL) [address] [place] [address] [phone] Cholesterol 203 mg/dL 19 HDL Cholesterol 39.8 mg/dL 20 LDL Cholesterol 131 mg/dL 21 CMV Igg/Igm 03/27/2019 [facility] Cytomegalovirus IgG Negative Negative 22 [place] [address] [phone] Cytomegalovirus IgM Antibody Negative Negative Laboratory test 03/27/2019 [facility] LDH 149 U/L Normal 140- 271 finding [address] [place] [address] [phone] CBC Auto Diff 03/27/2019 [facility] White Blood 22.8 High 3.5- 10.8 101 Count 10^3/[place] [address] [phone] Red Blood Count 4.36 10^6/uL Normal 3.70-4.87 [...] Blood Cells % 0.0 Comp Metabolic 03/27/2019 [facility] Sodium 137 mmol/L Normal 135-[address] [place] [address] [phone] Potassium 4.7 mmol/L Normal 3.5-5.0 Chloride 103 [...] Egfr Non- 101.3 >60 Egfr 122.6 >60 23 Laboratory test 03/27/2019 [facility] C Reactive 25.87 mg/L High <8.[address] [place] [address] [phone] Urinalysis 03/27/2019 [facility] Urine Color Yellow Profile [address] [place] [address] [phone] Urine Appearance Clear Urine Specific [place] 1.014 Normal 1.010-1.030 Urine pH 6.0 Normal 5-9 Urine Urobilinogen Negative Negative Urine Ketones Negative Negative Urine Protein Negative Negative Urine Leukocytes Negative Negative Urine Blood Negative Negative Urine Nitrite Negative Negative Urine Bilirubin Negative Negative Urine Glucose Negative Negative Laboratory test 03/27/2019 [facility] Erythrocyte Sed 113 mm/Hr High 0-[address] [place] [address] [phone] 1 Please check labs 2 days before follow up 2 Please check labs 2 days before follow up 3 Because ethnic data is not always readily [...] 15-29 5 Kidney failure <15 (or dialysis) 4 Troponin-I testing on Plasma Separator Tubes (PST) has a known false positive rate of 0.20-0.40%. All positive troponins reflex immediately to secondary confirmatory testing. Using the ReceeptI 800 Access Immunoassay systems, the 99th percentile upper reference limit was demonstrated to be < 0.03 ng/mL. 5 Because ethnic data is not always [...] 5 Kidney failure <15 (or dialysis) 6 [id number] 7 SEE RESULT BELOW Name: JAYY CANTU : [address]: Yue Mcrae MD Acct: [id number] Unit: [id number] AGE: 38 Location: [facility] Re07/29/19 SEX: F Status: DEP ER SPEC: [id number] [place]: 07/29/19-[address] [facility] [address]: Yue Mcrae MD REQ: [id number] RECD: 07/29/19 STATUS: RES OTHR DR: Kimberlyn Dhillon MD _ SOURCE: FINGER SPDESC:MIDDLE RGT ORDERED: MRSA/SA SSTI, Culture Stain COMMENTS: [id number] Procedure Result Reported Site MRSA/S. aureus SSTI PCR PENDING Wound/Misc Gram Stain Final 07/29/19- 1505 ML 2+ Neutrophils 3+ Gram Positive Cocci Wound/Misc Culture PENDING * ML - Main Lab . END OF REPORT DEPARTMENT OF PATHOLOGY, [address] [place] [address] Simón Uriarte M.D. Director [facility] # [id number] 8 SEE RESULT BELOW Name: JAYY CANTU : [address]: Yue Mcrae MD Acct: [id number] Unit: [id number] AGE: 38 Location: [facility] Re07/29/19 SEX: F Status: DEP ER SPEC: [id number] [place]: 07/29/19-[address]: Yue Mcrae MD REQ: [id number] RECD: 07/29/19 STATUS: COMP [facility] DR: Kimberlyn Dhillon MD _ SOURCE: FINGER SPDESC:MIDDLE RGT ORDERED: MRSA/SA SSTI, Culture Stain COMMENTS: Verbal to [id number] by [email or web address] at 1638 on 07/29/19. Results read back accurately. [id number] Procedure Result Reported Site MRSA/S. aureus SSTI [...] 3+ Gram Positive Cocci Wound/Misc Culture Final 07/31/19- 914 ML Organism 1 STAPHYLOCOCCUS AUREUS Quantity 3+ CONTINUED ON NEXT PAGE DEPARTMENT OF PATHOLOGY, [address] [place] [address] Simón Uriarte M.D. Director [facility] # [id number] Specimen: [id number] Collected: 07/29/19 Received: 07/29/19 (Continued) Procedure Result [...] These antibiotics are not available in the [facility] Formulary Contact the Microbiology Department for any additional antibiotic reporting. * ML - Main Lab . END OF REPORT DEPARTMENT OF PATHOLOGY, [address] [place] [address] Simón Uriarte M.D. Director [facility] # [id number] 9 SEE RESULT BELOW Name: S[place]TH [place]ANT[place] : [address]: Heath Barber MD Acct: [id number] Unit: [id number] AGE: 38 Location: ED Re06/27/19 SEX: F Status: DEP ER SPEC: [id number] [place]: 06/27/19-[address] [facility] [address]: Heath Barber MD REQ: [id number] RECD: 06/27/19 STATUS:RES [facility] DR: Kimberlyn Dhillon MD _ SOURCE: FRANCISCO ELLIS SPDC: ORDERED: MRSA/SA SSTI, Culture Stain QUERIES: Specimen Description R AXILLA ABSCESS Procedure Result Reported Site MRSA/S. aureus SSTI PCR PENDING Wound/Misc Gram Stain Preliminary 06/27/19- 1919 ML 4+ Neutrophils 2+ Epithelial Cells 3+ Gram Positive Cocci in Clusters, resembling Staph Wound/Misc Culture PENDING * ML - Main Lab . END OF REPORT DEPARTMENT OF PATHOLOGY, [address] [place] [address] Simón Uriarte M.D. Director [facility] # [id number] 10 SEE RESULT BELOW Name: JAYY CANTU : [address]: Heath Barber MD Acct: [id number] Unit: [id number] AGE: 38 Location: ED Re06/27/19 SEX: F Status: DEP ER SPEC: [id number] [place]: 06/27/19-[address] [facility] [address]: Heath Barber MD REQ: [id number] RECD: 06/27/19 STATUS:JOEL GARCIA DR: Kimberlyn Dhillon MD _ SOURCE: FRANCISCO ELLIS [facility]: ORDERED: MRSA/SA SSTI, Culture Stain COMMENTS: Verbal to [id number] by [id number] at 2032 on 06/27/19. Results read back [...] CONTINUED ON NEXT PAGE DEPARTMENT OF PATHOLOGY, [address] [place] [address] Simón Uriarte M.D. Director [facility] # [id number] Specimen: [id number] Collected: 06/27/19 Received: 06/27/19 (Continued) Procedure Result [...] These antibiotics are not available in the [facility] Formulary Contact the Microbiology Department for any additional antibiotic reporting. * ML - Main Lab . END OF REPORT DEPARTMENT OF PATHOLOGY, [address] [place] [address] Simón Uriarte M.D. Director [facility] # [id number] 11 [id number] 12 SEE RESULT BELOW Name: JAYY CANTU : [address]: Chay Olivas MD Acct: [id number] Unit: [id number] AGE: 38 Location: [facility] Re06/25/19 SEX: F Status: DEP ER SPEC: [id number] [place]: 06/25/19-[address]: Erin CHAVEZ REQ: [id number] RECD: 06/25/19 STATUS:JOEL [facility] DR: Kimberlyn Olivas MD _ S[facility] ORDERED: MRSA/SA SSTI, Culture Stain COMMENTS: [id number] Verbal to [id number] by [email or web address] at 1625 on 06/25/19. Results read back [...] Gram Positive Cocci Wound/Misc Culture Final 06/27/19- 1301 ML Organism 1 STAPHYLOCOCCUS AUREUS Quantity 2+ CONTINUED ON NEXT PAGE DEPARTMENT OF PATHOLOGY, [address] [place] [address] Simón Uriarte M.D. Director [facility] # [id number] Specimen: [id number] Collected: 06/25/19 Received: 06/25/19 (Continued) Procedure Result Reported Site Wound/Misc Culture Final (continued) 06/27/19- 1300 1. STAPHYLOCOCCUS AUREUS M.I.C. RX --------- [...] These antibiotics are not available in the [facility] Formulary Contact the Microbiology Department for any additional antibiotic reporting. * ML - Main Lab . END OF REPORT DEPARTMENT OF PATHOLOGY, [address] [place] [address] Simón Uriarte M.D. Director [facility] # [id number] 13 SEE RESULT BELOW Name: JAYY CANTU : [address]: Chay Olivas MD Acct: [id number] Unit: [id number] AGE: 38 Location: [facility] Re06/25/19 SEX: F Status: DEP ER SPEC: [id number] [place]: 06/25/19-[address] [facility] [address]: Erin CHAVEZ REQ: [id number] RECD: 06/25/19 STATUS: RES [facility] DR: Kimberlyn Olivas MD _ SOURCE: FRANCISCO ELLIS SPDESC: ORDERED: MRSA/SA SSTI, Culture Stain COMMENTS: [id number] Procedure Result Reported Site MRSA/S. aureus SSTI PCR PENDING Wound/Misc Gram Stain Final 06/25/19- 1502 ML 4+ Neutrophils 1+ Epithelial Cells 3+ Gram Positive Cocci Wound/Misc Culture PENDING * ML - Main Lab . END OF REPORT DEPARTMENT OF PATHOLOGY, [address] [place] [address] Simón Uriarte M.D. Director [facility] # [id number] 14 Pilot Fuel Engineer: [id number] Pilot Fuel Engineer: [id number] Therapeutic target for the treatment of diabetes mellitus patients is <7% HBA1C, and in selective patients <6.0%. Please refer to [place] [employer] diabetic care guidelines for further information. 17 Unable to calculate due to low microalbumin 18 Desirable: <150 Borderline High: 150-199 High: 200-499 Very High: >500 19 Desirable: <200 Borderline High: 200-239 High: >239 20 Low: <40 Desirable: 40-60 High: >60 21 Desirable: <100 Near Optimal: 100-129 Borderline High: 130-159 High: 160-189 Very High: >189 22 Test Performed by: [facility] - [address], [place] [address] 23 Because ethnic data is not always readily [...] 15-29 5 Kidney failure <15 (or dialysis) Procedures Date Code Description Status 06/08/2019 32818 Inject/Drain Joint/Bursa Major W/O US Completed 04/19/2019 30678 Arthroscopy Shoulder,W/Rotator Cuff Repair Completed 04/19/2019 56848 Arthroscopy,Shoulder Decompression Of Subacromial Completed Space W/Acromio 04/06/2019 85854 Treadmill Interp/Report Only Completed 04/06/2019 48191 Stress Test Supervsn W/Out I/R Completed 03/27/2019 06500 EKG Tracing & Interpretation Completed 12/24/2016 [id number] Diabetic Retinal Eye Exam Completed Medical Devices Description No Information Available Encounters Type Date Location Provider Dx Diagnosis Office Visit 09/15/2019 [facility] Internal Gianna Lopez, J02.9 Acute pharyngitis, 3:30p Medicine Russell Overton M.D., FACP unspecified E87.1 Hypo-osmolality and hyponatremia Office Visit 07/14/2019 10:30a W[facility] Brett Wisdom03.319 Cellulitis of Center [facility] MD Stephania, trunk, unspecified FACS E66.01 Morbid (severe) obesity due to excess calories Office Visit 06/29/2019 2:00p [facility] Internal Gianna Lopez L02.411 Cutaneous Medicine Russell Overton M.D., FACP abscess of right axilla E11.9 Type 2 diabetes mellitus without complications L95.9 Vasculitis limited to the skin, unspecified Office Visit 06/08/2019 2:30p [place] Jak Booker, M75.42 Impingement [place] syndrome of left [place] shoulder Office Visit 06/01/2019 12:10p [facility] Internal Kimberlyn M25.362 Other Medicine - Tian Dhillon M.D. instability, left knee Z23 Encounter for immunization Office Visit 05/02/2019 2:15p [facility] Jak Booker, M25.512 Pain in left at [place] shoulder S46.011A Strain of musc/tend the rotator cuff of right shoulder, init Office Visit 04/20/2019 [facility] G47.33 Obstructive 1:50p Assoccherry M.D. sleep apnea Hospitalists (adult) (pediatric) Office Visit 04/19/2019 [facility] G47.33 Obstructive 1:49p Asscherry fountain M.D. sleep apnea Hospitalists (adult) (pediatric) E11.9 Type 2 diabetes mellitus without complications Z79.4 [facility] (current) use of insulin F41.9 Anxiety disorder, unspecified Office Visit 04/05/2019 [facility] Spencer Fabian, E11.65 Type 2 diabetes 2:40p Endocrinology of mellitus with [facility] hyperglycemia Z79.4 oil heaterman (current) use of insulin Office Visit 03/29/2019 [facility] G47.33 Obstructive sleep 1:30p [facility] [place] apnea (adult) [facility] (pediatric) E66.9 Obesity, unspecified Z68.43 Body mass index (BMI) 50.0-59.9, adult Office Visit 03/27/2019 1:20p [facility] Internal Mejia Valdivia, Z01.818 Encounter for other Medicine - preprocedural [address] examination M25.811 Other specified joint disorders, right shoulder I25.10 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/o ang pctrs E78.2 Mixed hyperlipidemia Z68.43 Body mass index (BMI) 50.0-59.9, adult E66.01 Morbid (severe) obesity due to excess calories E10.65 Type 1 diabetes mellitus with hyperglycemia R94.31 Abnormal electrocardiogram [ECG] [EKG] Assessments Date Code Description Provider 09/22/2019 G43.009 Migraine without aura, not intractable, Adilson Jack, LAB SPECIALIST without status migrainosus 09/22/2019 M54.2 Cervicalgia Adilson Jack, LAB SPECIALIST 09/15/2019 J02.9 Acute pharyngitis, unspecified Gianna Lopez [...] right shoulder Jak Booker MD 04/19/2019 Z79.4 [facility] (current) use of insulin Ed Hylton M.D. [...] electrocardiogram [ECG] [EKG] Sheila Corbett M.D. 04/05/2019 E11.65 Type 2 diabetes mellitus with Spencer Fabian MD hyperglycemia 04/05/2019 Z79.4 oil heaterman (current) use of insulin Spencer Fabian MD 03/29/2019 G47.33 Obstructive sleep apnea (adult) Jenny Winston NP (pediatric) 03/29/2019 E66.9 Obesity, unspecified Jenny Winston NP 03/29/2019 Z68.43 Body mass index (BMI) 50.0-59.9, adult Jenny Winston NP 03/27/2019 Z01.818 Encounter for other preprocedural Mejia Valdivia MD examination 03/27/2019 M25.811 Other specified joint disorders, right Mejia Valdivia MD shoulder 03/27/2019 I25.10 Atherosclerotic heart disease of [place] Mejia Valdivia MD coronary artery without angina pectoris 03/27/2019 E78.2 Mixed hyperlipidemia Mejia Valdivia MD 03/27/2019 Z68.43 Body mass index (BMI) 50.0-59.9, adult Mejia Valdivia MD 03/27/2019 E66.01 Morbid (severe) obesity due to excess Mejia Valdivia MD calories 03/27/2019 E10.65 Type 1 diabetes mellitus with Mejia Valdivia MD hyperglycemia 03/27/2019 R94.31 Abnormal electrocardiogram [ECG] [EKG] Mejia Valdivia MD Plan of Treatment Future Appointment(s):12/21/2019 3:30 pm - Adilson Jack NP at [facility] Gsrffs0610/03/2019 2:30 pm - Gilmer Lewis MD at [facility] at [id number]/29/2019 2:15 pm - Yadira Bobby M.D. at [facility] at [id number] 1:40 pm - Spencer Fabian MD at [facility]10/02/2019 11:20 am - Mike Maradiaga M.D. at [facility]05/2020 1:00 pm - Nurse Visit A at [facility] Internal Medicine - [facility]09/22/2019 - Adilson Jack NPG43.009 Migraine without aura, not intractable, without status migrainosusFollow up:THREE SDSCQTT05.2 Cervicalgia Functional Status Description No Information Available Mental Status Description No Information Available Referrals Refer to Reason for Referral Status Appt Date Created Wound Clinic Abscess drained in Emergency Department 06/27/19. Needs Sent ongoing packing care. 06/29 faxed referral, tried to call they are closed till 06/30. S[facility] [address] [phone] Yadira Bobby MD Sent 06/19/2019 [address] [facility] [place] [address] [place] [address] [phone] Brett Kelley DO, [facility] surgical clearance, intermittent chest Sent 04/05 pain. ordering stress test [address] [place] [address] [phone]
--- OUTSIDE RECORDS SUMMARY | 2019-10-14 16:54 | XMS REPORT ---
:1980 Author Organization [facility] Care Team Providers Name Role Phone Ly Gentile Primary Care Physician Unavailable Allergies, Adverse Reactions, Alerts Allergy Code CodeSystem Reaction Severity Criticality Status Start Substance Date nkda Moderate Active Medications Medication Medication Medication Start Stop Route Dose Status Fill Code CodeSystem Date Date Instructions melatonin 660997 RxNorm 2018- oral 10 mg 1 active 1 capsule 03-15 capsule at bedtime at for 30 day(s) bedtime lorazepam RxNorm 2018- oral 1 mg 1 completed 1 tablet 02-17- tablet twice a day twice a as needed for day 30 day(s) Viibryd 5800018 RxNorm 2018- oral 20 mg 1 completed Take 1 tablet 12-10- tablet twice a day twice a for 30 day(s) day gabapentin 319649 RxNorm 2019- oral 600 mg completed for 30 02-14- tablet day(s) mirtazapine 065559 RxNorm 2018- oral 15 mg active for 30 01-19- tablet day(s) gabapentin 074707 RxNorm 2018- oral 600 mg completed for 30 11-21-30 tablet day(s) zolpidem 278524 RxNorm 2018- oral 10 mg 1 active 1 tablet at 11-21 tablet bedtime for at 30 day(s) bedtime Cymbalta 128368 RxNorm 2018- oral 20 mg active for 30 03-15- capsule, day(s) delayed release( DR/EC) prazosin 954334 RxNorm 2018- oral 2 mg completed for 30 11-15-30 capsule day(s) lorazepam RxNorm 2018- oral 1 mg 1 active 1 tablet 02-15 tablet twice a day twice a as needed for day 30 day(s) melatonin 5129289 RxNorm 2019- oral 10 mg 1 completed 1 tablet at 02-19 tablet bedtime for at 30 day(s) bedtime Cymbalta 406625 RxNorm 2018- oral 60 mg active for 30 02-15 09-24 capsule, day(s) delayed release( DR/EC) Rexulti 3626864 RxNorm 2018- oral 2 mg completed for 30 04-14-30 tablet day(s) zolpidem 065063 RxNorm 2018- oral 10 mg completed for 30 4 04- tablet day(s) Problems Problem Name Code CodeSystem Alternate Alternate Start End Status Narrative Code CodeSystem Date Date 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, current episode severe with psychotic symptoms Recurrent 16110301 SNOMED-CT Active 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, current episode severe with psychotic symptoms Relevant diagnostic tests/laboratory data Narrative No Information Procedures Procedure Code CodeSystem Target Date of Status Service Device Device Device Name Site Procedure Delivery Code Name UID Location Psychotherap [id number] SNOMED-CT () 2019-02-08 complete Mental y, 45 04 d Health- minutes with [address], [id number] Psychotherap [id number] SNOMED-CT () 2019-02-14 complete Mental y, 45 04 d Health- minutes with [facility], [id number] [id number] Psychotherap [id number] SNOMED-CT () 2019-03-16 complete Mental y, 45 04 d Health- minutes with [facility], [id number] [id number] Psychotherap [id number] SNOMED-CT () 2019-03-28 complete Mental y, 45 04 d Health- minutes with [address], [id number] [phone] Psychotherap [id number] SNOMED-CT () 2019-04-07 complete Mental y, 45 04 d Health- minutes with [address], [id number] [id number] Psychotherap [id number] SNOMED-CT () 2019-04-14 complete Mental y, 45 04 d Health- minutes with [facility] patient [address], [id number] [phone] Psychotherap [id number] SNOMED-CT () 2019-02-20 complete Mental y, 45 04 d Health- minutes with [facility] patient [address], [id number] [phone] Psychotherap [id number] SNOMED-CT () 2019-07-14 complete Mental y, 45 04 d Health- minutes with [facility] patient [address], [id number] [id number] Crisis [id number] SNOMED-CT () 2018-12-28 complete Mental intervention 0 d Health- mental [facility], [address] [place] [address], [id number] Crisis [id number] SNOMED-CT () 2019-02-15 complete Mental intervention 0 d Health- mental [facility], [address] [place] [address], [id number] [id number] [employer] [id number] SNOMED-CT () 2019-02-15 complete Mental l 7 d Health- intervention [facility] for medical [address], [facility] [place], behalf with [phone] agencies, [phone] employers, or institutions Office or [id number] SNOMED-CT () 2018-11-21 complete Mental other 7 d Health- outpatient [facility] visit for [address], [facility], established [id number] patient, [id number] which requires at least 2 of these 3 christianson components: An expanded problem focused history; An expanded problem focused examination; Medical decision making of low Office or [id number] SNOMED-CT () 2019-07-12 complete Mental other 7 d Health- outpatient [facility] visit for [address], established [id number] patient, [phone] which requires at least 2 of these 3 christianson components: An expanded problem focused history; An expanded problem focused examination; Medical decision making of low Office or [id number] SNOMED-CT () 2019-03-15 complete Mental other 6 d Health- outpatient [facility] visit for [address], established [id number] patient, [phone] which requires at least 2 of these 3 christianson components: A problem focused history; A problem focused examination; Straight[place]w abril medical decision making. Counselin Office or [id number] SNOMED-CT () 2019-01-19 complete Mental other 6 d Health- outpatient [facility] visit for [address], established [id number] patient, [phone] which requires at least 2 of these 3 christianson components: A problem focused history; A problem focused examination; Straightforw abril medical decision making. [place] SNOMED-CT () 2019-02-19 complete Mental d [address], [id number] [id number] SNOMED-CT () 2019-03-08 complete Mental d [address], [id number] [id number] SNOMED-CT () 2018-12-06 complete Mental d [address], [id number] SNOMED-CT () 2018-12-13 complete Mental d [address], [id number] SNOMED-CT () 2019-01-30 [facility] Mental d [address], [id number] [id number] SNOMED-CT () 2019-01-04 [facility] Mental d [address], [id number] Encounters/Encounter Diagnoses Encounter Encounter Diagnosis Diagnosis Diagnosis Date of Service Name Code Code Name CodeSystem Diagnosis Delivery Location Non-Billable [id number] Recurrent SNOMED-CT 2019-05-18 Behavioral depressive Health disorder, Clinic , , current , episode severe with psychotic symptoms Vital Signs No Information Social History Element Description Description Start End Code CodeSystem AdditionalInfo Date Date SexAssignedAtBirth Female 1980-0 F AdministrativeGender 08-28 Hospital Discharge Instructions Reason For Referral Medical Equipment FDA Assessments
--- OUTSIDE RECORDS SUMMARY | 2019-10-14 16:54 | XMS REPORT ---
:1980 Author Organization [facility] Care Team Providers Name Role Phone Unavailable Unavailable Unavailable Problems Condition Condition Condition Status Onset Resolution Last Treating Comments Name Details Category Date Date Treatment Clinician Date Cutaneous Cutaneous Diagnosis Active 2018-08 Lu abscess of abscess of 08-30 Nguyen right right axilla axilla Pain frequent Pain Mgmt Resolve 2018-082019-07-03 Anita pain d 08-31 12:37:00 (Rusty) 08:45: Darci 00 [id number] Respiratory dyspnea Respirator Resolve 2018-082019-07-03 Anita present y d 08-31 12:37:00 (Rusty) 08:45: Bejarano 00 [id number] Endo/Dano diabetic Endo/Dano Resolve 2018-082019-07-03 Anita foot care d 08-31 12:37:00 (Rusty) 08:45: Bejarano 00 [id number] Integument surgical Integument Resolve 2018-082019-07-25 Anita wound d 08-31 09:40:00 (Rusty) present 08:45: Bejarano 00 [id number] Nutrition nutritional Nutrition Resolve 2018-082019-07-03 Anita restriction d 08-31 12:37:00 (Rusty) s 08:45: Bejarano 00 [id number] Elimination urinary Eliminatio Resolve 2018-082019-07-03 Anita incontinenc n d 08-31 12:37:00 (Rusty) e 08:45: Bejarano 00 [id number] Neuro confusion Neuro/Emot Resolve 2018-082019-07-05 Anita present ion d 08-31 12:25:00 (Rusty) 08:45: Bejarano 00 [id number] Neuro anxiety Neuro/Emot Resolve 2018-082019-07-05 Anita present ion d 08-31 12:25:00 (Rusty) 08:45: Bejarano 00 [id number] Neuro depressive Neuro/Emot Resolve 2018-082019-07-05 Anita feelings ion d 08-31 12:25:00 (Rusty) present 08:45: Bejarano 00 [id number] Neuro impaired Neuro/Emot Resolve 2018-082019-07-05 Anita decision-ma ion d 08-31 12:25:00 (Rusty) sumanth 08:45: Bejarano 00 [id number] Activity ADL Activity Resolve 2018-082019-07-05 Anita assistance d 08-31 12:25:00 (Rusty) required 08:45: Bejarano 00 [id number] Activity self-care Activity Resolve 2018-082019-07-05 Anita deficit d 08-31 12:25:00 (Rusty) 08:45: Bejarano 00 [id number] Safety fall risk Safety Resolve 2018-082019-07-03 Anita factor d 08-31 12:37:00 (Rusty) present 08:45: Bejarano 00 [id number] Safety risk for Safety Resolve 2018-082019-07-03 Anita hospitaliza d 08-31 12:37:00 (Rusty) tion 08:45: Bejarano 00 [id number] Medication oral med Meds Resolve 2018-082019-07-03 Anita assistance d 08-31 12:37:00 (Rusty) required 08:45: Bejarano 00 [id number] Medication injectable Meds Resolve 2018-082019-07-03 Anita med d 08-31 12:37:00 (Rusty) assistance 08:45: Bejarano required 00 [id number] Endo/Dano anti-coagul Endo/Dano Resolve 2018-082019-07-03 Lu ation [...] Unknown 04-27 Bactrim Medication Active Unknown Reaction Carolta Beam Name ID Unknown 04-27 adhesive Base [...]
--- OUTSIDE RECORDS SUMMARY | 2019-10-14 16:54 | XMS REPORT | Continuity of Care Document ---
:1980 External Reference #:[id number] Author Name Gianna Lopez M.D., FACP (transmitted by agent of provider Liliana Becerril) Address [address] [facility], [place] [address] Care Team Providers Name Role Phone Mike Maradiaga MD - Rheumatology Care Team Information Kier Drier Patel Bhat MD - Gastroenterology Care Team Information Kier Drier Abad Dempsey MD - Dermatology Care Team Information Kier Drier [facility] - Gynecology Care Team Information Kier Drier [phone] Vinnie Gunderson MD - Obstetrics & Care Team Information Kier Drier [phone] Gynecology Kimberlyn Dhillon MD - Internal Care Team Information Kier Drier Medicine Leatha Vanegas M.D. 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 Shoulder joint pain Jak Booker MD Onset: 05/02/2019 Strain of rotator cuff capsule Jak Booker MD Onset: 05/02/2019 Social History Type Date Description Comments Sex Unknown Tobacco Use Start: Unknown Former Cigarette Smoker End: Unknown Smoking Status Reviewed: 01/24/20 Former Cigarette Smoker ETOH Use Denies alcohol [...] provide Jenny 01/03/2019 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 dx Res 3ML e10.9 [...] Calcium take one tablet by 90tabs E78.2 Kimberlyn Dhillon, 12/29 mouth every M.D. 80mg Tablets evening Imodium A-D 1 by mouth twice a 60caps K31.84 12/02/2016 2mg day prn CottonBryD. Capsules Cellcept 2 tabs by mouth 180tabs [...] [place]lin Epipen 2-Amos use as directed 2units Deidra [...] Sun Romano 06/30/2019 - 150mg dose. May M.D. 09/14/2019 Tablets repeat in 3 days if needed Oxycodone-Acetamino 1 tabs by mouth 18shaquille Booker MD 04/19/2019 - phen every 4-6 hours 04/30/2019 5-325mg as needed for Tablets pain Cephalexin take 1 by mouth 12shaquille Booker MD 04/19/2019 - 500mg four times a 04/25/2019 Tablets day x 3 days post op Pen [place] to be used once 100units E10.65 Spencer [...] Code Status Date Vaccine Reaction Lot # [id number] Given 06/01/2019 Hepatitis B Vaccine Adult [id number] Dosage 81166 Given 06/01/2019 Influenza Virus Vaccine, Quadrivalent, Split, Im Use 6-35mo 08345 Given 07/18/2018 Pneumococcal Conjugate no immediate reaction [id number] Vaccine 13 Valent For noted Intramuscular Use 09877 Given 05/12/2018 Influenza Virus Vaccine, No immediate reaction [id number] Quadrivalent, Split, noted. Preservative Free 76295 Given 06/14/2017 Tdap - [id number] Tetanus/Diptheria/Acellular Pertussis 08224 Given 06/01/2017 Influenza Virus Vaccine, no reaction noted [id number] Quadrivalent, Split, Preservative Free 04484 Given 04/02/2017 Pneumonia Vaccine Vital Signs Date Vital Result Comment 09/15/2019 2:57pm Height 67 inches 5'7" Weight 342.00 lb Heart Rate 90 /min BP Systolic Sitting 130 mmHg Lue reg (forearm) BP Diastolic Sitting 79 mmHg Lue reg (forearm) O2 % BldC Oximetry 96 % BMI (Body Mass Index) 53.6 kg/m2 06/29/2019 1:39pm Height 67 inches 5'7" Weight 344.00 lb Heart Rate 78 /min BP Systolic Sitting 128 mmHg BP Diastolic Sitting 82 mmHg Body Temperature 96.4 F BMI (Body Mass Index) 53.9 kg/m2 Results Test Acquired Date Facility Test Result H/L Range Note CBC Auto 08/29/2019 [facility] White Blood 17.0 10^3/uL High 3.5-10.[address] [place] [address] [phone] Red Blood Count 4.07 10^6/uL Normal 3.70-4.87 [...] Blood Cells % 0.0 Laboratory test 08/29/2019 [facility] Troponin-I 0.00 ng/mL < 0.[address] (TnI) [place] [address] [phone] Comp Metabolic 08/29/2019 [facility] Sodium 129 mmol/L Low 135 -[address] [place] [address] [phone] Potassium 4.2 mmol/L Normal 3.5-5.0 Chloride 98 [...] Egfr Non- 110.4 >60 Egfr 133.5 >60 2 Wound 07/29/2019 [facility] Wound/Misc SEE 3, 4 Culture/Sensi [address] DR[address] [place] [address] Stain BELOW [phone] Laboratory test 07/29/2019 [facility] MRSA/S Aureus SEE [address] [place] [address] BELOW [phone] Wound 06/27/2019 [facility] Wound/Misc SEE 6 Culture/Sensi [address] [place] [address] Stain BELOW [phone] Laboratory test 06/27/2019 [facility] MRSA/S Aureus SEE [address] [place] [address] BELOW [phone] Wound 06/25/2019 [facility] Wound/Misc SEE 8, 9 Culture/Sensi [address] [place] [address] Stain BELOW [phone] Laboratory test 06/25/2019 [facility] MRSA/S Aureus SEE [address] [place] [address] BELOW [phone] Laboratory test 04/19/2019 [facility] Point of Care 138 High 70-100 [address] Glucose mg/[place] [address] [phone] Laboratory test 04/19/2019 [facility] Point of Care 184 High 70-100 [address] Glucose mg/[place] [address] [phone] Laboratory test 04/05/2019 [facility] Hemoglobin A1c 5.8 % High 4.0-5.[address] (Glyco HGB) [place] [address] [phone] Laboratory test 03/27/2019 [facility] Hepatitis B Not Abnormal Immune finding [address] Jocelyne [place] [address] [phone] Urine 03/27/2019 [facility] Ur < 15.[address] Microalbumin mg/[place] [address] (mg/L) [phone] Urine Creatinine 130.12 mg/dL Urine Microalbumin/Creatinine TNP <31 14 Lipid Profile 03/27/2019 [facility] Triglycerides 161 mg/dL 15 (Trig/Chol/HDL) [address] [place] [address] [phone] Cholesterol 203 mg/dL 16 HDL Cholesterol 39.8 mg/dL 17 LDL Cholesterol 131 mg/dL 18 CMV Igg/Igm 03/27/2019 [facility] Cytomegalovirus IgG Negative Negative [address] Antibody [place], [place] [address] [phone] Cytomegalovirus IgM Antibody Negative Negative Laboratory test 03/27/2019 [facility] LDH 149 U/L Normal 140- [address] [place] [address] [phone] CBC Auto Diff 03/27/2019 [facility] White Blood 22.8 High 3.5- 10.[address] Count 10^3/[place] [address] [phone] Red Blood Count 4.36 10^6/uL Normal 3.70-4.87 [...] Blood Cells % 0.0 Comp Metabolic 03/27/2019 [facility] Sodium 137 mmol/L Normal 135-145 Panel [address] [place] [address] [phone] Potassium 4.7 mmol/L Normal 3.5-5.0 Chloride 103 [...] Egfr Non- 101.3 >60 Egfr 122.6 >60 20 Laboratory test 03/27/2019 [facility] C Reactive 25.87 mg/L High <8.[address] [place] [address] [phone] Urinalysis 03/27/2019 [facility] Urine Color Yellow Profile [address] [place] [address] [phone] Urine Appearance Clear Urine Specific [place] 1.014 Normal 1.010-1.030 Urine pH 6.0 Normal 5-9 Urine Urobilinogen Negative Negative Urine Ketones Negative Negative Urine Protein Negative Negative Urine Leukocytes Negative Negative Urine Blood Negative Negative Urine Nitrite Negative Negative Urine Bilirubin Negative Negative Urine Glucose Negative Negative Laboratory test 03/27/2019 [facility] Erythrocyte Sed 113 mm/Hr High 0-[address] [place] [address] [phone] 1 Troponin-I testing on Plasma Separator Tubes (PST) has a known false positive rate of 0.20-0.40%. All positive troponins reflex immediately to secondary confirmatory testing. Using the [employer] DxI 800 Access Immunoassay systems, the 99th percentile upper reference limit was demonstrated to be < 0.03 ng/mL. 2 Because ethnic data is not always [...] 5 Kidney failure <15 (or dialysis) 3 [id number] 4 SEE RESULT BELOW Name: JAYY CANTU : [address]: Yue Mcrae MD Acct: [id number] Unit: [id number] AGE: 38 Location: [facility] Re07/29/19 SEX: F Status: DEP ER SPEC: [id number] [place]: 07/29/19-[address] [facility] [address]: Yue Mcrae MD REQ: [id number] RECD: 07/29/19 STATUS: RES [facility] DR: Kimberlyn Dhillon MD _ [facility]: MRSA/SA SSTI, Culture Stain COMMENTS: [id number] Procedure Result Reported Site MRSA/S. aureus SSTI PCR PENDING Wound/Misc Gram Stain Final 07/29/19- 1505 ML 2+ Neutrophils 3+ Gram Positive Cocci Wound/Misc Culture PENDING * ML - Main Lab . END OF REPORT DEPARTMENT OF PATHOLOGY, [address] [place] [address] Simón Uriarte M.D. Director [facility] # [id number] 5 SEE RESULT BELOW Name: JAYY CANTU : [address]: Yue Mcrae MD Acct: [id number] Unit: [id number] AGE: 38 Location: [facility] Re07/29/19 SEX: F Status: DEP ER SPEC: [id number] [place]: 07/29/19-[address] [facility] [address]: Yue Mcrae MD REQ: [id number] RECD: 07/29/19 STATUS: COMP [facility] DR: Kimberlyn Dhillon MD _ SOURCE: FINGER SPDESC:[place] RGT ORDERED: MRSA/SA SSTI, Culture Stain COMMENTS: Verbal to [id number] by [email or web address] at 1638 on 07/29/19. Results read back accurately. [id number] Procedure Result Reported Site MRSA/S. aureus SSTI [...] Gram Positive Cocci Wound/Misc Culture Final 07/31/19- 0915 ML Organism 1 STAPHYLOCOCCUS AUREUS Quantity 3+ CONTINUED ON NEXT PAGE DEPARTMENT OF PATHOLOGY, [address] [place] [address] Simón Uriarte M.D. Director [facility] # [id number] Specimen: [id number] Collected: 07/29/19 Received: 07/29/19 (Continued) Procedure Result Reported Site Wound/Misc Culture Final (continued) 07/31/19- 914 1. STAPHYLOCOCCUS AUREUS M.I.C. RX --------- ------ [...] These antibiotics are not available in the [facility] Formulary Contact the Microbiology Department for any additional antibiotic reporting. * ML - Main Lab . END OF REPORT DEPARTMENT OF PATHOLOGY, [address] [place] [address] Simón Uriarte M.D. Director [facility] # [id number] 6 SEE RESULT BELOW Name: JAYY CANTU : [address]: Heath Barber MD Acct: [id number] Unit: [id number] AGE: 38 Location: ED Re06/27/19 SEX: F Status: DEP ER SPEC: [id number] [place]: 06/27/19-[address] [facility] [address]: Heath Barber MD REQ: [id number] RECD: 06/27/19 STATUS:RES OTHR DR: Kimberlyn Dhillon MD _ SOURCE: FRANCISCO ELLIS SPDESC: ORDERED: MRSA/SA SSTI, Culture Stain QUERIES: Specimen Description R AXILLA ABSCESS Procedure Result Reported Site MRSA/S. aureus SSTI PCR PENDING Wound/Misc Gram Stain Preliminary 06/27/191919 ML 4+ Neutrophils 2+ Epithelial Cells 3+ Gram Positive Cocci in Clusters, resembling Staph Wound/Misc Culture PENDING * ML - Main Lab . END OF REPORT DEPARTMENT OF PATHOLOGY, [address] [place] [address] Simón Uriarte M.D. Director [facility] # [id number] 7 SEE RESULT BELOW Name: JAYY CANTU : [address]: Heath Barber MD Acct: [id number] Unit: [id number] AGE: 38 Location: ED Re06/27/19 SEX: F Status: DEP ER SPEC: [id number] [place]: 06/27/19-[address]: Heath Barber MD REQ: [id number] RECD: 06/27/19 STATUS:COMP OTHR DR: Kimberlyn Dhillon MD _ SOURCE: FRANCISCO ELLIS [facility]: ORDERED: MRSA/SA SSTI, Culture Stain COMMENTS: Verbal to [id number] by [id number] at 2032 on 06/27/19. Results read back accurately. QUERIES: Specimen Description R AXILLA ABSCESS Procedure Result Reported Site MRSA/S. aureus SSTI PCR Final 06/28/19- 0732 ML Organism 1 MRSA NEGATIVE Organism 2 [...] CONTINUED ON NEXT PAGE DEPARTMENT OF PATHOLOGY, [address] [place] [address] Simón Uriarte M.D. Director [facility] # [id number] Specimen: [id number] Collected: 06/27/19 Received: 06/27/19 (Continued) Procedure Result Reported Site Wound/Misc Culture Final (continued) 06/29/19916 1. STAPHYLOCOCCUS AUREUS M.I.C. RX --------- ------ [...] These antibiotics are not available in the [facility] Formulary Contact the Microbiology Department for any additional antibiotic reporting. * ML - Main Lab . END OF REPORT DEPARTMENT OF PATHOLOGY, [address] [place] [address] Simón Uriarte M.D. Director [facility] # [id number] 9 SEE RESULT BELOW Name: JAYY CANTU : [address]: Chay Olivas MD Acct: [id number] Unit: [id number] AGE: 38 Location: [facility] Re06/25/19 SEX: F Status: DEP ER SPEC: [id number] [place]: 06/25/19-[address] [facility] [address]: Erin CHAVEZ REQ: [id number] RECD: 06/25/19 STATUS: RES [facility] DR: Kimberlyn Olivas MD _ SOURCE: FRANCISCO ELLIS [facility]: ORDERED: MRSA/SA SSTI, Culture Stain COMMENTS: [id number] Procedure Result Reported Site MRSA/S. aureus SSTI PCR PENDING Wound/Misc Gram Stain Final 06/25/19- 1502 ML 4+ Neutrophils 1+ Epithelial Cells 3+ Gram Positive Cocci Wound/Misc Culture PENDING * ML - Main Lab . END OF REPORT DEPARTMENT OF PATHOLOGY, [address] [place] [address] Simón Uriarte M.D. Director [facility] # [id number] 10 SEE RESULT BELOW Name: JAYY CANTU : [address]: Chay Olivas MD Acct: [id number] Unit: [id number] AGE: 38 Location: [facility] Re06/25/19 SEX: F Status: DEP ER SPEC: [id number] [place]: 06/25/[address] [facility] [address]: Erin CHAVEZ REQ: [id number] RECD: 06/25/19 STATUS:JOEL GARCIA DR: Kimberlyn Olivas MD _ [facility]: MRSA/SA SSTI, Culture Stain COMMENTS: [id number] Verbal to [place] [id number] by [id number] at 1625 on 06/25/19. Results read back [...] CONTINUED ON NEXT PAGE DEPARTMENT OF PATHOLOGY, [address] [place] [address] Simón Uriarte M.D. Director [facility] # [id number] Specimen: [id number] Collected: 06/25/19 Received: 06/25/192 (Continued) Procedure Result Reported Site Wound/Misc Culture Final (continued) 06/27/19 130 1. STAPHYLOCOCCUS AUREUS M.I.C. RX --------- ------ [...] These antibiotics are not available in the [facility] Formulary Contact the Microbiology Department for any additional antibiotic reporting. * - Main Lab . END OF REPORT DEPARTMENT OF PATHOLOGY, [address] [place] [address] Simón Uriarte M.D. Director [facility] # [id number] 11 Marketing Database Analyst: [id number] Marketing Database Analyst: [id number] 13 Therapeutic target for the treatment of diabetes mellitus patients is <7% HBA1C, and in selective patients <6.0%. Please refer to [place] [employer] diabetic care guidelines for further information. 14 Unable to calculate due to low microalbumin 15 Desirable: <150 Borderline High: 150-199 High: 200-499 Very High: >500 16 Desirable: <200 Borderline High: 200-239 High: >239 17 Low: <40 Desirable: 40-60 High: >60 18 Desirable: <100 Near Optimal: 100-129 Borderline High: 130-159 High: 160-189 Very High: >189 19 Test Performed by: [facility] [address] [place] [address] 20 Because ethnic data is not always readily [...] dialysis) Procedures Date Code Description Status 06/08/2019 01243 Inject/Drain Joint/Bursa Major W/O US Completed 04/19/2019 00661 Arthroscopy Shoulder,W/Rotator Cuff Repair Completed 04/19/2019 98283 Arthroscopy,Shoulder Decompression Of Subacromial Completed Space W/Acromio 04/06/2019 29834 Treadmill Interp/Report Only Completed 04/06/2019 11458 Stress Test Supervsn W/Out I/R Completed 03/27/2019 43878 EKG Tracing & Interpretation Completed 12/24/2016 [id number] Diabetic Retinal Eye Exam Completed Medical Devices Description No Information Available Encounters Type Date Location Provider Dx Diagnosis Office Visit 07/14/2019 Wound Care Brett Cat, L03.319 Cellulitis of 10:30a Center AT [facility] , FACS trunk, unspecified E66.01 Morbid (severe) obesity due to excess calories Office Visit 06/29/2019 2:00p [facility] Internal Gianna Jessica, L02.411 Cutaneous Medicine - Tian Go, FACP abscess of right axilla E11.9 Type 2 diabetes mellitus without complications L95.9 Vasculitis limited to the skin, unspecified Office Visit 06/08/2019 2:30p [place] Jak Booker M75.42 Impingement [place] syndrome of left [place] shoulder Office Visit 06/01/2019 12:10p [facility] Internal Kimberlyn M25.362 Other Medicine - Tian Dhillon M.D. instability, left knee Z23 Encounter for immunization Office Visit 05/02/2019 2:15p [place] Jak Booker, M25.512 Pain in left at [place] shoulder S46.011A Strain of musc/tend the rotator cuff of right shoulder, init Office Visit 04/20/2019 [facility] G47.33 Obstructive 1:50p Asscherry fountain M.D. sleep apnea Hospitalists (adult) (pediatric) [facility] 1:49p cherry Rojas M.D. 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 F41.9 Anxiety disorder, unspecified Office Visit 04/05/2019 [place] [facility] Palmer Coch, E11.65 Type 2 diabetes 2:40p Endocrinology of mellitus with [facility] hyperglycemia Z79.4 custodial (current) use of insulin Office Visit 03/29/2019 [facility] Jenny G47.33 Obstructive sleep 1:30p [facility] [place] apnea (adult) [facility] (pediatric) E66.9 Obesity, unspecified Z68.43 Body mass index (BMI) 50.0-59.9, adult Office Visit 03/27/2019 1:20p [facility] Internal Mejia Valdivia, Z01.818 Encounter for other Medicine - MD preprocedural [address] examination M25.811 Other specified joint disorders, right shoulder I25.10 Athscl heart disease of cahto coronary artery w/o ang pctrs E78.2 Mixed hyperlipidemia Z68.43 Body mass index (BMI) 50.0-59.9, adult E66.01 Morbid (severe) obesity due to excess calories E10.65 Type 1 diabetes mellitus with hyperglycemia R94.31 Abnormal electrocardiogram [ECG] [EKG] Assessments Date Code Description Provider 09/15/2019 J02.9 Acute pharyngitis, unspecified Gianna Lopez [...] shoulder Jak Booker MD 04/19/2019 Z79.4 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 [...] with Spencer Fabian MD hyperglycemia 04/05/2019 Z79.4 custodial (current) use of insulin Spencer Fabian MD 03/29/2019 G47.33 Obstructive sleep apnea (adult) Jenny Winston NP (pediatric) 03/29/2019 E66.9 Obesity, unspecified Jenny Wisnton NP 03/29/2019 Z68.43 Body mass index (BMI) 50.0-59.9, adult Jenny Winston NP 03/27/2019 Z01.818 Encounter for other preprocedural Mejia Valdivia MD examination 03/27/2019 M25.811 Other specified joint disorders, right Mejia Valdivia MD shoulder 03/27/2019 I25.10 Atherosclerotic heart disease of cahto Mejia Valdivia MD coronary artery without angina pectoris 03/27/2019 E78.2 Mixed hyperlipidemia Mejia Valdivia MD 03/27/2019 Z68.43 Body mass index (BMI) 50.0-59.9, adult Mejia Valdivia MD 03/27/2019 E66.01 Morbid (severe) obesity due to excess Mejia Valdivia MD calories 03/27/2019 E10.65 Type 1 diabetes mellitus with Mejia Valdivia MD hyperglycemia 03/27/2019 R94.31 Abnormal electrocardiogram [ECG] [EKG] Mejia Valdivia MD Plan of Treatment Future Appointment(s):09/22/2019 3:00 pm - Adilson Jack NP at [facility] [id number]/02/2019 1:40 pm - Spencer Fabian MD at [facility]09/21/2019 11:00 am - Gilmer Lewis MD at [facility] at Sflonb4409/18/2019 2:00 pm - Yadira Bobby M.D. at [facility] at [id number]/02/2019 11:20 am - Mike Maradiaga M.D. at [facility]12/01/2019 1:00 pm - Nurse Visit A at [facility] - Gianna Lopez M.D., FACPJ02.9 Acute pharyngitis, unspecifiedComments:THROAT SYMPTOMS:Today we talked about the likelihood of your symptoms being due to the post nasal drip. Use the nasal saline spray and gargle with warm salt water. Having a humidifier running in your bedroom might be helpful.E87.1 Hypo-osmolality and hyponatremiaNew Labs:Creatinine 24HR Urine, Ordered: 09/15/19odium 24HR Urine, Ordered: 09/15/19Osmolality, 24HR Urine, Ordered: 09/15/19Basic Metabolic Panel, Ordered: 09/15/19Osmolality Serum , Ordered: 09/15/19TSH (Thyroid Stim Horm), Ordered: 09/15/19Potassium 24HR Urine, Ordered: 09/15/19Comments:LOW SODIUM:Today we talked about this finding. I would like to check a 24 hour urine collection. We will also need to check some blood work at the same time. Functional Status Description No Information Available Mental Status Description No Information Available Referrals Refer to Dr Reason for Referral Status Appt Date Created Wound Clinic Abscess drained in Emergency Department 06/27/19. Needs Sent ongoing packing care. 06/29 faxed referral, tried to call they are closed till 06/30. S[address] [place] [address] [phone] Yadira Bobby MD Sent 06/19/2019 [address] [facility] [place] [address] [place] [address] [phone] Brett Kelley DO, [facility] surgical clearance, intermittent chest Sent 04/05 pain. ordering stress test [address] [place] [address] [phone]
[2019-10-14 16:57] LABS: ABS Basophils 0.1 10^3/ul (0-0.2); ABS Eosinophils 0.2 10^3/ul (0-0.6); ABS Lymphocytes 3.5 10^3/ul (1.0-4.8); ABS Monocytes 0.9 10^3/ul (0-0.8); ABS Neutrophils 7.5 10^3/ul (1.5-7.7); Eosinophil % 1.7 %; Hematocrit 37 % (35-47); Hemoglobin 12.3 g/dL (12.0-16.0); Lymphocyte % 28.6 %; Mean Corpuscular HGB Conc 34 g/dL (31-36); Mean Corpuscular Hemoglobin 30 pg (27-31); Mean Corpuscular Volume 90 fL (80-97); Mean Platelet Volume 6.7 fL (7.4-10.4); Platelet Count 369 10^3/uL (150-450); Red Blood Count 4.05 10^6 /uL (3.70-4.87); Red Cell Distribution Width 13 % (10-15); White Blood Count 12.2 10^3/uL (3.5-10.8)
[2019-10-14 17:13] LABS: ALT 10 U/L (7-52); AST 9 U/L (13-39); Albumin 3.7 g/dL (3.2-5.2); Alkaline Phosphatase 124 U/L (34-104); Anion Gap 9 mmol/L (2-11); BUN/Creatinine Ratio 16.1 (8-20); Blood Urea Nitrogen 9 mg/dL (6-24); CO2 Carbon Dioxide 22 mmol/L (22-32); Chloride 101 mmol/L (101-111); EGFR African American 147.4 (>60); EGFR Non-African American 121.8 (>60); Globulin 3.8 g/dL (2-4); Glucose 344 mg/dL (70-100); Potassium 3.5 mmol/L (3.5-5.0); Sodium 132 mmol/L (135-145); Total Protein 7.5 g/dL (6.4-8.9)
[2019-10-14 17:14] LABS: Influenza A Molecular Negative (Negative); Influenza B Molecular Negative (Negative)
[2019-10-14 17:15] LABS: Acetaminophen < 15 mcg/mL; Alcohol < 10 mg/dL (<10); Salicylate < 2.50 mg/dL (<30)
[2019-10-14 17:19] LABS: HCG Pregnancy < 0.60 mIU/mL
[2019-10-14 17:30] LABS: TSH (Thyroid Stimulating Horm) 0.67 mcIU/mL (0.34-5.60)
[2019-10-14] MEDS ORDERED: Insulin REGULAR(*) 1 UNITS UNIT SUBCUT ONE (18:27)
[2019-10-14 20:21] LABS: Urine Appearance Clear; Urine Bilirubin Negative (Negative); Urine Blood Negative (Negative); Urine Color Yellow; Urine Glucose 3+(>=500 mg/dL) (Negative); Urine Ketones Trace (Negative); Urine Nitrite Negative (Negative); Urine Protein Negative (Negative); Urine Specific Gravity 1.027 (1.010-1.030); Urine Urobilinogen Negative (Negative)
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
[2019-10-14 20:37] LABS: Urine Benzodiazepine Screen None Detected (None Detect); Urine Opiates Screen None Detected (None Detect)
[2019-10-14] MEDS ORDERED: Al Hydrox/Mg Hydrox/Simet LIQ* 30 ML UDC PO PRN (21:21)
[2019-10-14] MEDS ORDERED: Acetaminophen TAB* 325 MG PO PRN (21:21)
[2019-10-14] MEDS ORDERED: Melatonin 3 MG TAB PO SCH (21:30)
[2019-10-14] MEDS ORDERED: Docusate CAP* 100 MG PO SCH (21:30)
[2019-10-14] MEDS ORDERED: EPINEPHRINE 1 MG/ML 1 ML VIAL IM PRN (22:18)
[2019-10-14] MEDS ORDERED: Albuterol HFA INHALER* 8 gm MDI INH PRN (22:23)
[2019-10-14] MEDS ORDERED: Dextrose 50% Syringe 50 ML* 25 GM/50 ML SYRINGE IV PUSH PRN (22:37)
[2019-10-14] MEDS ORDERED: Insulin GLARGINE(*) 1 UNITS UNIT SUBCUT SCH (23:00)
[2019-10-14] MEDS ORDERED: Docusate CAP* 100 MG PO PRN (23:00)
[2019-10-14] MEDS: Atorvastatin* 80 MG TAB PO SCH (23:22)
[2019-10-14] MEDS: Gabapentin CAP(*) 400 MG PO SCH (23:23)
[2019-10-14] MEDS: Metoprolol Tartrate TAB* 100 MG TAB PO SCH (23:24)
[2019-10-14] MEDS: Mycophenolate Mofetil TAB(*) 500 MG PO SCH (23:24)
[2019-10-14] MEDS: Mirtazapine TAB* 15 MG PO SCH (23:24)
[2019-10-14] MEDS: Topiramate TAB(*) 100 MG PO SCH (23:26)
[2019-10-14] MEDS: Zolpidem TAB* 10 MG PO SCH (23:27)
[2019-10-14] MEDS: Melatonin 3 MG TAB PO PRN (23:28)
--- NOTE | 2019-10-15 04:47 | CONS ---
CONSULTATION REPORT: DATE OF CONSULT: 10/15/19 REASON FOR CONSULT: Diabetic management. REQUESTING PROVIDER: Dr. Barr. HISTORY OF PRESENT ILLNESS: This is a 39-year-old female with a past medical history significant for diabetes type 1, vasculitis, migraines, hyperlipidemia, who is admitted on 10/14/19 to the [facility] for suicide ideation. Dr. Barr requested hospitalist consult to help manage her di abetes. Her last hemoglobin A1c was drawn on 04/05/19, which was 5.8 within target; however, the pat iebranden stated that over the past several months she has not been caring for herself as well. She state s that she barely checks her blood sugars at all and had normally used an insulin pump; however, she states that she sees 13 different doctors and every time she goes to one they all tell her to lose we ight as she is 328 pounds and she feels like she is being bullied by the medical profession and so th erefore starting several months ago she would only drink water during the day and eat some of kind of meat at nighttime and was not giving herself her normal insulin. Her glucose upon admission was 349 . She states that she feels thirsty. She drinks about 10 water bottles a day. She states her appeti te has been normal. She also reports having difficulty urination, sometimes she is incontinent, somet imes she sits on the toilet and is unable to go. PAST MEDICAL HISTORY: Past history of suicide attempts, diabetes type 1, vasculitis, migraines, hype rlipidemia, angina, anxiety, depression, PTSD, borderline personality, arthritis, Crohn's, GERD, iraj roparesis, irritable bowel syndrome, diabetic neuropathy. PAST SURGICAL HISTORY: Cholecystectomy, cardiac cath without a stent, ulnar nerve release, and right shoulder surgery. HOME MEDICATIONS: 1. Diphenhydramine 25 to 50 mg p.o. q.4 to 6 hours p.r.n. 2. Zolpidem 10 mg p.o. at bedtime. 3. Topiramate 100 mg p.o. b.i.d. 4. Spironolactone 50 mg p.o. q.a.m. 5. Sumatriptan 100 mg p.o. daily p.r.n. 6. Systane eye drops 1 drop both eyes b.i.d. p.r.n. 7. Prazosin 8 mg p.o. at bedtime. 8. Pantoprazole 40 mg p.o. q.a.m. 9. Naproxen 500 mg p.o. b.i.d. p.r.n. 10. CellCept 1000 mg p.o. b.i.d. 11. Mirtazapine 15 mg p.o. at bedtime. 12. Metoprolol tartrate 100 mg p.o. b.i.d. 13. Melatonin 10 mg at bedtime p.r.n. 14. Medical marijuana 1 inhalation daily p.r.n. 15. Loratadine 10 mg p.o. q.a.m. 16. Lorazepam 1 mg p.o. b.i.d. p.r.n. 17. Insulin lispro per insulin pump. 18. Insulin glargine 38 units subcu daily. 19. Gabapentin 600 mg p.o. q.a.m. 20. Gabapentin 1200 mg p.o. at bedtime. 21. Nexplanon 68 mg subcu once. 22. Aimovig 70 mg subcu monthly. 23. Epinephrine 0.3 mg IM once p.r.n. 24. Duloxetine 20 mg p.o. at bedtime. 25. Duloxetine 60 mg p.o. q.a.m. 26. Docusate 100 mg p.o. 2 to 3 times daily p.r.n. 27. Dicyclomine 10 mg p.o. b.i.d. 28. Dapsone 75 mg p.o. q.a.m. 29. Cetirizine 10 mg p.o. daily p.r.n. 30. Calcium carbonate 500 mg p.o. t.i.d. p.r.n. 31. Fioricet 1 tab p.o. q.8 hours p.r.n. 32. Benzo natate 100 mg p.o. t.i.d. 33. Atorvastatin 80 mg p.o. at bedtime. 34. Artificial Tears 1 drop both eyes q.2 hours p.r.n. 35. Albuterol inhaler 2 puffs inhalation q.6 hours p.r.n. ALLERGIES: To adhesive tape, ASENAPINE, bee venom protein, LATUDA, REGLAN, PACLITAXEL, SULFA, TRIMET HOPRIM, NALBUPHINE, PAROXETINE, TRAMADOL, "metal and zepeda." FAMILY HISTORY: Significant for cardiac disease, diabetes and her sister has kidney disease with end -stage renal disease. SOCIAL HISTORY: She quit smoking 8 to 9 months ago. She has smoked off and on for the past 6 years but smoked for a total of 4 years. She uses marijuana weekly to help with her vasculitis. She drink s alcohol only on special occasions and that very rarely. REVIEW OF SYSTEMS: A 12-point system review was performed, which was positive for depression, anxiet y, intermittent difficulties with voiding, excessive thirst. Within the past 2 weeks sore throat, stephon al discharge, body aches, headaches, and productive cough. Denies any fever, chills, dizziness, ligh theadedness, chest pain, shortness of breath, nausea, vomiting, belly pain. PHYSICAL EXAM: Vital Signs: 97.7 Fahrenheit, 94 pulse, 20 respirations, 98% oxygen on room air, and 109/79 blood pressure. General: This is a well-developed, morbidly obese woman, seen lying in the bed, in no acute distress. HEENT: Conjunctivae are pink and moist. PERRLA. EOMs intact. Oropharyn x clear. Mucous membranes moist. Neck: Supple. Cardiac: S1, S2 present. Heart rate regular. No murmurs, gallops, or rubs appreciated. Respiratory: Lung sounds clear throughout bilaterally on andrews m air. No accessory muscle use noted. Abdomen: Large, soft, nontender, nondistended with positive b owel sounds x4. Musculoskeletal: No clubbing or cyanosis of the digits. Able to move all extremitie s. Skin: No rashes or open areas appreciated. Neurologic: Sensation intact to light touch. No fo stephanie deficits appreciated. Psych: She is alert and oriented x3. Anxious and tearful at times. DIAGNOSTIC STUDIES: None. PERTINENT LABORATORY DATA: Sodium 132, glucose 349, AST 9, alkaline phosphatase 124. TSH 0.67. Neg ative for influenza A or B. WBCs 12.2. ASSESSMENT AND PLAN: 1. Suicide ideation. Management is as per Psychiatry. 2. Diabetes type 1. We will not use the insulin pump while she is in the hospital, rather I will co ntinue her home dosing of Lantus as well as sliding scale fingersticks a.c. and h.s. with lispro cove rage. 3. Vasculitis. Continue topiramate and CellCept. 4. Diabetes-related neuropathy. Continue gabapentin, duloxetine. 5. Anxiety and depression. Continue lorazepam, duloxetine. 6. Hyperlipidemia. Continue atorvastatin. 7. Hypertension. Continue metoprolol. 8. Gastroesophageal reflux disease. Continue Protonix. 9. Migraines. Continue Fioricet and naproxen. 10. DVT prophylaxis: Not needed, she is a low risk. 11. Code status is full code. TIME SPENT: Time spent on the patient is 60 minutes with 30 minutes spent face-to- face. Thank you very much for allowing us to participate in the care of this patient. We will follow ashley kellogg this admission. [id number]/[facility] #: [id number]
[2019-10-15] MEDS: Lidocaine 2% VISCOUS* 15 ML UDC PO ONE ×2 (07:05→07:14)
[2019-10-15 07:34] LABS: HDL Cholesterol 30.2 mg/dL
[2019-10-15] MEDS: Dapsone TAB* 100 MG PO SCH (09:12)
[2019-10-15] MEDS: Cetirizine* 10 MG TAB PO SCH (09:12)
[2019-10-15] MEDS: Gabapentin CAP(*) 300 MG PO SCH (09:13)
[2019-10-15] MEDS: Mycophenolate Mofetil TAB(*) 500 MG PO SCH ×2 (09:14→21:27)
[2019-10-15] MEDS: Metoprolol Tartrate TAB* 100 MG TAB PO SCH ×2 (09:14→21:26)
[2019-10-15] MEDS: Pantoprazole TAB * 40 MG TAB PO SCH (09:15)
[2019-10-15] MEDS: Spironolactone TAB* 25 MG PO SCH (09:15)
[2019-10-15] MEDS: Topiramate TAB(*) 100 MG PO SCH ×2 (09:16→21:26)
[2019-10-15] MEDS: Vitamin THERAPEUTIC TAB PO SCH (09:16)
[2019-10-15] MEDS: Insulin LISPRO* 1 UNITS UNIT SUBCUT SCH ×5 (09:25→21:22)
[2019-10-15] MEDS ORDERED: SUMAtriptan TAB* 100 MG PO PRN (14:40)
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
--- NOTE | 2019-10-15 17:13 | PN ---
Hospitalist Progress Note Date of Service: 10/15/19 Have been reviewing the blood sugars on an ongoing basis. Added on 10u scheduled mealtime lispro. Continue with SSI and recursively add on additional scheduled mealtime insulin. Adjust long acting insulin based on preprandial blood glucose.
[2019-10-15] MEDS: Atorvastatin* 80 MG TAB PO SCH (21:25)
[2019-10-15] MEDS: Zolpidem TAB* 10 MG PO SCH (21:25)
[2019-10-15] MEDS: Gabapentin CAP(*) 400 MG PO SCH (21:25)
[2019-10-15] MEDS: Mirtazapine TAB* 15 MG PO SCH (21:26)
[2019-10-15] MEDS: Melatonin 3 MG TAB PO PRN (23:25)
[2019-10-15] MEDS: diPHENhydraMINE PO* 25 MG PO PRN (23:26)
[2019-10-16] MEDS: Insulin LISPRO* 1 UNITS UNIT SUBCUT SCH ×7 (07:55→20:00)
[2019-10-16] MEDS ORDERED: Insulin GLARGINE(*) 1 UNITS UNIT SUBCUT SCH (09:00)
[2019-10-16] MEDS ORDERED: Insulin GLARGINE(*) 1 UNITS UNIT SUBCUT ONE (09:07)
[2019-10-16] MEDS: Metoprolol Tartrate TAB* 100 MG TAB PO SCH ×3 (10:45→20:20)
[2019-10-16] MEDS: Spironolactone TAB* 25 MG PO SCH ×2 (10:45→11:04)
[2019-10-16] MEDS: Gabapentin CAP(*) 300 MG PO SCH (11:03)
[2019-10-16] MEDS: Pantoprazole TAB * 40 MG TAB PO SCH (11:04)
[2019-10-16] MEDS: Vitamin THERAPEUTIC TAB PO SCH (11:04)
[2019-10-16] MEDS: Topiramate TAB(*) 100 MG PO SCH ×2 (11:04→20:20)
[2019-10-16] MEDS: Cetirizine* 10 MG TAB PO SCH (11:04)
[2019-10-16] MEDS: Dapsone TAB* 100 MG PO SCH (11:05)
[2019-10-16] MEDS: Mycophenolate Mofetil TAB(*) 500 MG PO SCH ×2 (11:05→20:22)
--- NOTE | 2019-10-16 11:27 | PN ---
BSU: Group Therapy Note - Service Type Service Type: [id number] Group Psychotherapy - Cognitive Behavioral Group Therapy ( CBT):Patient was attentive and participatory in CBT programming this morning, and remained in good behavioral control. Patient expressed positive insights regarding relevant treatment interventions and goals.
[2019-10-16] MEDS ORDERED: Benzocaine/Menthol LOZ* 1 LOZENGE MT PRN (16:12)
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
[2019-10-16] MEDS: Acetaminophen / Codeine* #3 (300 MG/30 MG) TAB PO PRN (18:15)
[2019-10-16] MEDS: diPHENhydraMINE PO* 25 MG PO PRN (19:57)
[2019-10-16] MEDS: Atorvastatin* 80 MG TAB PO SCH (20:21)
[2019-10-16] MEDS: Gabapentin CAP(*) 400 MG PO SCH (20:21)
[2019-10-16] MEDS: DULoxetine DR CAP* 60 MG CAP.DR PO SCH (20:21)
[2019-10-16] MEDS: Mirtazapine TAB* 15 MG PO SCH (22:25)
[2019-10-16 22:41] LABS: Hematocrit 45 % (35-47); Hemoglobin 15.1 g/dL (12.0-16.0); Mean Corpuscular HGB Conc 33 g/dL (31-36); Mean Corpuscular Hemoglobin 31 pg (27-31); Mean Corpuscular Volume 93 fL (80-97); Red Blood Count 4.88 10^6 /uL (3.70-4.87); Red Cell Distribution Width 13 % (10-15); White Blood Count 18.2 10^3/uL (3.5-10.8)
[2019-10-16 23:16] LABS: Calcium 9.8 mg/dL (8.6-10.3)
[2019-10-16 23:17] LABS: Potassium 4.4 mmol/L (3.5-5.0)
[2019-10-16 23:19] LABS: Platelet Count Platelets clumped. 10^3/uL (150-450)
[2019-10-16 23:22] LABS: C Reactive Protein 20.37 mg/L (<8.01); EGFR African American 92.3 (>60); EGFR Non-African American 76.3 (>60)
[2019-10-16 23:24] LABS: ABS Eosinophils 0.1 10^3/ul (0-0.6); ABS Lymphocytes 5.5 10^3/ul (1.0-4.8); ABS Monocytes 1.2 10^3/ul (0-0.8); ABS Neutrophils 11.4 10^3/ul (1.5-7.7); Eosinophil % 0.3 %; Nucleated Red Blood Cells % 0.1
[2019-10-17] MEDS ORDERED: Ondansetron ODT TAB* 4 MG SL PRN (00:48)
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
[2019-10-17] MEDS ORDERED: Acetaminophen / Codeine* #3 (300 MG/30 MG) TAB PO ONE (01:02)
[2019-10-17] MEDS: diPHENhydraMINE PO* 25 MG PO PRN ×3 (01:15→16:23)
[2019-10-17] MEDS: Acetaminophen / Codeine* #3 (300 MG/30 MG) TAB PO PRN ×4 (01:15→22:49)
[2019-10-17] MEDS: Famotidine TAB* 20 MG PO SCH ×3 (01:16→20:54)
[2019-10-17 01:48] LABS: Urine Appearance Cloudy; Urine Bilirubin Negative (Negative); Urine Blood Negative (Negative); Urine Color Yellow; Urine Glucose Negative (Negative); Urine Ketones Negative (Negative); Urine Nitrite Negative (Negative); Urine Protein Negative (Negative); Urine Specific Gravity 1.013 (1.010-1.030); Urine Urobilinogen Negative (Negative)
[2019-10-17 04:26] LABS: Potassium 4.1 mmol/L (3.5-5.0)
[2019-10-17 04:31] LABS: BUN/Creatinine Ratio 23.6 (8-20); EGFR African American 110.3 (>60); EGFR Non-African American 91.1 (>60)
[2019-10-17] MEDS: Insulin LISPRO* 1 UNITS UNIT SUBCUT SCH ×7 (07:46→21:08)
[2019-10-17] MEDS: DULoxetine DR CAP* 20 MG CAP.DR PO SCH (09:04)
[2019-10-17] MEDS: Gabapentin CAP(*) 300 MG PO SCH (09:04)
[2019-10-17] MEDS: Spironolactone TAB* 25 MG PO SCH (09:04)
[2019-10-17] MEDS: Pantoprazole TAB * 40 MG TAB PO SCH (09:05)
[2019-10-17] MEDS: Cetirizine* 10 MG TAB PO SCH (09:05)
[2019-10-17] MEDS: Topiramate TAB(*) 100 MG PO SCH ×2 (09:05→21:01)
[2019-10-17] MEDS: Vitamin THERAPEUTIC TAB PO SCH (09:05)
[2019-10-17] MEDS: Metoprolol Tartrate TAB* 100 MG TAB PO SCH ×2 (09:05→20:56)
[2019-10-17] MEDS: Dapsone TAB* 100 MG PO SCH (09:06)
[2019-10-17] MEDS: Mycophenolate Mofetil TAB(*) 500 MG PO SCH ×2 (09:08→20:58)
[2019-10-17] MEDS: Insulin GLARGINE(*) 1 UNITS UNIT SUBCUT SCH (09:16)
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
[2019-10-17] MEDS: Atorvastatin* 80 MG TAB PO SCH (20:53)
[2019-10-17] MEDS: DULoxetine DR CAP* 60 MG CAP.DR PO SCH (20:53)
[2019-10-17] MEDS: Gabapentin CAP(*) 400 MG PO SCH (20:54)
[2019-10-17] MEDS: Mirtazapine TAB* 15 MG PO SCH (20:57)
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
[2019-10-18] MEDS: Acetaminophen / Codeine* #3 (300 MG/30 MG) TAB PO PRN ×3 (06:48→22:02)
[2019-10-18] MEDS: diPHENhydraMINE PO* 25 MG PO PRN ×3 (06:48→22:02)
[2019-10-18] MEDS: Saline NASAL SPRAY 0.65%* BTL BOTH NARES PRN (06:50)
[2019-10-18 08:50] LABS: ABS Basophils 0.1 10^3/ul (0-0.2); ABS Eosinophils 0.2 10^3/ul (0-0.6); ABS Lymphocytes 3.7 10^3/ul (1.0-4.8); ABS Neutrophils 6.6 10^3/ul (1.5-7.7); Eosinophil % 2.1 %; Hematocrit 37 % (35-47); Hemoglobin 12.4 g/dL (12.0-16.0); Lymphocyte % 31.8 %; Mean Corpuscular HGB Conc 34 g/dL (31-36); Mean Corpuscular Hemoglobin 31 pg (27-31); Mean Corpuscular Volume 91 fL (80-97); Mean Platelet Volume 6.9 fL (7.4-10.4); Platelet Count 341 10^3/uL (150-450); Red Blood Count 4.03 10^6 /uL (3.70-4.87); Red Cell Distribution Width 13 % (10-15); White Blood Count 11.6 10^3/uL (3.5-10.8)
[2019-10-18] MEDS: Insulin LISPRO* 1 UNITS UNIT SUBCUT SCH ×7 (09:24→20:07)
[2019-10-18] MEDS: Insulin GLARGINE(*) 1 UNITS UNIT SUBCUT SCH (09:26)
[2019-10-18] MEDS: Spironolactone TAB* 25 MG PO SCH (09:27)
[2019-10-18] MEDS: Vitamin THERAPEUTIC TAB PO SCH (09:27)
[2019-10-18] MEDS: DULoxetine DR CAP* 20 MG CAP.DR PO SCH (09:27)
[2019-10-18] MEDS: Gabapentin CAP(*) 300 MG PO SCH (09:28)
[2019-10-18] MEDS: Pantoprazole TAB * 40 MG TAB PO SCH (09:28)
[2019-10-18] MEDS: Cetirizine* 10 MG TAB PO SCH (09:29)
[2019-10-18] MEDS: Famotidine TAB* 20 MG PO SCH ×2 (09:29→20:12)
[2019-10-18] MEDS: Mycophenolate Mofetil TAB(*) 500 MG PO SCH ×2 (09:29→20:15)
[2019-10-18] MEDS: Topiramate TAB(*) 100 MG PO SCH ×2 (09:29→20:17)
[2019-10-18] MEDS: Metoprolol Tartrate TAB* 100 MG TAB PO SCH ×2 (09:29→20:13)
[2019-10-18] MEDS: Dapsone TAB* 100 MG PO SCH (09:30)
[2019-10-18 09:55] LABS: Erythrocyte Sed Rate 69 mm/Hr (0-19)
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
[2019-10-18] MEDS: Atorvastatin* 80 MG TAB PO SCH (20:12)
[2019-10-18] MEDS: DULoxetine DR CAP* 60 MG CAP.DR PO SCH (20:12)
[2019-10-18] MEDS: Gabapentin CAP(*) 400 MG PO SCH (20:12)
[2019-10-18] MEDS: Mirtazapine TAB* 15 MG PO SCH (20:14)
[2019-10-18 20:36] LABS: Complement C3 157 mg/dL (75 - 175)
[2019-10-18 22:12] LABS: C-ANCA Positive 1:32 (Negative)
[2019-10-19] MEDS: Saline NASAL SPRAY 0.65%* BTL BOTH NARES PRN (04:11)
[2019-10-19] MEDS: diPHENhydraMINE PO* 25 MG PO PRN ×2 (04:12→09:11)
[2019-10-19] MEDS: Acetaminophen / Codeine* #3 (300 MG/30 MG) TAB PO PRN ×2 (04:12→09:11)
[2019-10-19] MEDS ORDERED: Insulin GLARGINE(*) 1 UNITS UNIT SUBCUT SCH (09:00)
[2019-10-19] MEDS: DULoxetine DR CAP* 20 MG CAP.DR PO SCH (09:03)
[2019-10-19] MEDS: Famotidine TAB* 20 MG PO SCH (09:03)
[2019-10-19] MEDS: Cetirizine* 10 MG TAB PO SCH (09:03)
[2019-10-19] MEDS: Gabapentin CAP(*) 300 MG PO SCH (09:03)
[2019-10-19] MEDS: Spironolactone TAB* 25 MG PO SCH (09:03)
[2019-10-19] MEDS: Pantoprazole TAB * 40 MG TAB PO SCH (09:04)
[2019-10-19] MEDS: Topiramate TAB(*) 100 MG PO SCH (09:04)
[2019-10-19] MEDS: Vitamin THERAPEUTIC TAB PO SCH (09:04)
[2019-10-19] MEDS: Dapsone TAB* 100 MG PO SCH (09:05)
[2019-10-19] MEDS: Mycophenolate Mofetil TAB(*) 500 MG PO SCH (09:06)
[2019-10-19] MEDS: Metoprolol Tartrate TAB* 100 MG TAB PO SCH (09:06)
[2019-10-19 09:32] VITALS: BP 101/70
[2019-10-19] MEDS: Insulin LISPRO* 1 UNITS UNIT SUBCUT SCH ×4 (09:33→13:28)
[2019-10-19] MEDS ORDERED: Moisturizing CREAM* 120 GM JAR TOPICAL SCH (10:30)
[2019-10-19] MEDS ORDERED: Polyethylene Glycol 3350* 17 GM PACKET PO SCH (11:00)
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
--- NOTE | 2019-10-19 12:57 | PN ---
Hospitalist Progress Note Date of Service: 10/19/19 Spoke to patient in the [facility] today. Reviewed dosage changes in insulin. reviewed lab work with patient. also informed patient that blood cultures continue to show no growth thus far. Blood sugar are improved with insulin dosage changes, will continue at current dosages for now. continue with consistent carbohydrate diet, follow up outpatient for further management of her diabetes. Patient reports that she has dry cracked heels and constipation. I have recommended Mirlax for constipation and Eucerin cream for her feet. Patient should resume her insulin pump at discharge. She should continue to monitor left wrist for sign or infection with redness, swelling or drainage, continue with daily dressing changes.
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
[2019-11-06] MEDS ORDERED: AIMOVIG SUBCUT SCH (09:00)
[2019-11-06] MEDS ORDERED: [UNRECOGNIZED DRUG - OTHER] SUBCUT SCH (09:00)
== END 2019-10-19 13:30 | disposition home or self-care (01) | DRG 752 ==
LOC: ED 16:19 → BSU 21:00
PROVIDERS: ADMIT Psychiatry & Neurology Psychiatry; ATTEND Psychiatry & Neurology Psychiatry
PROC: GZHZZZZ Group Psychotherapy (ICD-10-PCS; principal; 2019-10-15)
DX: F60.3 Borderline personality disorder (principal); R45.851 Suicidal ideations; Z68.43 Body mass index [BMI] 50.0-59.9, adult; F43.10 Post-traumatic stress disorder, unspecified; E78.00 Pure hypercholesterolemia, unspecified; K21.9 Gastro-esophageal reflux disease without esophagitis; K58.9 Irritable bowel syndrome, unspecified; E10.43 Type 1 diabetes mellitus with diabetic autonomic (poly)neuropathy; K31.84 Gastroparesis; M17.0 Bilateral primary osteoarthritis of knee; M47.819 Spondylosis without myelopathy or radiculopathy, site unspecified; G43.909 Migraine, unspecified, not intractable, without status migrainosus; J45.909 Unspecified asthma, uncomplicated; Z62.810 Personal history of physical and sexual abuse in childhood; F41.0 Panic disorder [episodic paroxysmal anxiety]; E66.01 Morbid (severe) obesity due to excess calories; T22.012A Burn of unspecified degree of left forearm, initial encounter; E78.5 Hyperlipidemia, unspecified; F31.9 Bipolar disorder, unspecified; I77.6 Arteritis, unspecified; Z91.5 Personal history of self-harm; Z88.2 Allergy status to sulfonamides; Z88.1 Allergy status to other antibiotic agents; Z91.030 Bee allergy status; Z87.891 Personal history of nicotine dependence; X77.3XXA Intentional self-harm by hot household appliances, initial encounter; Y92.009 Unspecified place in unspecified non-institutional (private) residence as the place of occurrence of the external cause; Z91.19 Patient's noncompliance with other medical treatment and regimen; Z79.4 Long term (current) use of insulin; Z91.14 Patient's other noncompliance with medication regimen
CPT/HCPCS: 36415; 71045; 80048; 80053; 80061; 80307; 80320; 80329; 81003; 82947; 83036; 83516; 84443; 84702; 85025; 85060; 85652; 86140; 86160; 86255; 87040; 90853; 93005; 99222; 99231; 99232; 99233; 99238; 99284; A9270-GY; G0480

== ENCOUNTER 2019-10-31 11:44 | Emergency (ER) | payer OTHER ==
--- NOTE | 2019-10-31 14:06 | ED ---
Head Injury - HPI Summary HPI Summary: This patient is a 39 y/o female presenting to [facility] via EMS for headache s/p head injury this morning at 0600. Patient reports she got up this morning at 0600 to use the bathroom when she tripped and fell forward hitting her frontal head on the door jam. She notes she takes Ambien at night and took this last night. She is unsure if she had LOC. Patient went back to sleep afterwards. She describes a frontal headache and neck pain posteriorly. Denies fever, nausea, vomiting, shortness of breath. Patient is not on anticoagulants. Home Medications Medication Instructions Recorded Confirmed Type LoraTADine TAB(NF) [Claritin 10 MG 10 mg PO QAM 05/02/18 10/31/19 History TAB(NF)] Melatonin 10 mg PO BEDTIME PRN 10/27/18 10/31/19 History Naproxen [Naproxen 500 mg tab] 500 mg PO BID PRN 01/27/19 10/31/19 History Acetaminop/Codeine 30 MG TAB* 1 tab PO .4-6H PRN 04/05/19 10/31/19 History [Tylenol/Codeine 30 MG TAB*] Butalbital/Acetaminophen 1 tab PO Q8H PRN 04/05/19 10/31/19 History [Butalbital-Acetaminophn 50-325] Calcium Carbonate CHEW TAB* [Tums*] 500 mg PO TID PRN 04/05/19 10/31/19 History Dicyclomine CAP* [Bentyl CAP*] 10 mg PO BID 04/05/19 10/31/19 History Duloxetine HCl [Cymbalta] 20 mg PO BEDTIME 04/05/19 10/31/19 History Duloxetine HCl [Cymbalta] 60 mg PO QAM 04/05/19 10/31/19 History EPINEPHrine [Epipen 2-Amos] 0.3 mg IM ONCE PRN 04/05/19 10/31/19 History Erenumab-Aooe [Aimovig 70 mg SUBCUT MONTHLY 04/05/19 10/31/19 History Autoinjector] Medical Marijuana 1 inh INH DAILY PRN 04/05/19 10/31/19 History diphenhydrAMINE HCL 25 - 50 mg PO .4-6H PRN 04/15/19 10/31/19 History [Diphenhydramine HCl] Propylene Glycol/Peg 400/Pf 1 drop BOTH EYES BID PRN 05/09/19 10/31/19 History [Systane 0.3-0.4% Eye Drops] Etonogestrel [Nexplanon] 68 mg SUBCUT ONCE 05/23/19 10/31/19 History Albuterol HFA INHALER* [Ventolin 2 puff INH Q6H PRN mdi 10/19/19 10/31/19 Rx HFA Inhaler*] Atorvastatin* [Lipitor 80 MG*] 80 mg PO BEDTIME tab 10/19/19 10/31/19 Rx Benzocaine/Menthol NOBLE* 1 noble MT Q2H PRN #20 lozenge 10/19/19 10/31/19 Rx [Chloraseptic NOBLE*] Cetirizine* [ZyrTEC 10 MG TAB*] 10 mg PO QAM tab 10/19/19 10/31/19 Rx Dapsone TAB* 75 mg PO QAM tab 10/19/19 10/31/19 Rx Docusate CAP* [Colace Cap*] 100 mg PO BID PRN cap 10/19/19 10/31/19 Rx Gabapentin CAP(*) [Neurontin 300 600 mg PO QAM cap 10/19/19 10/31/19 Rx CAP(*)] Gabapentin CAP(*) [Neurontin 400 1,200 mg PO BEDTIME cap 10/19/19 10/31/19 Rx mg CAP(*)] Insulin GLARGINE(*) [Lantus 100 55 units SUBCUT Q24H #1 vial 10/19/19 10/31/19 Rx units/ml 10 ml VIAL (*)] Metoprolol Tartrate TAB* 100 mg PO BID tab 10/19/19 10/31/19 Rx [Lopressor TAB*] Mirtazapine TAB* [Remeron TAB*] 7.5 mg PO BEDTIME #14 tab 10/19/19 10/31/19 Rx Moisturizing CREAM* [Hydrocerin*] 1 applic TOPICAL BID jar 10/19/19 10/31/19 Rx Mycophenolate Mofetil TAB(*) 1,000 mg PO BID tab 10/19/19 10/31/19 Rx [Cellcept TAB(*)] Pantoprazole TAB * [Protonix TAB*] 40 mg PO QAM tab 10/19/19 10/31/19 Rx SUMAtriptan TAB* [Imitrex TAB*] 100 mg PO ONCE PRN tab 10/19/19 10/31/19 Rx Saline NASAL SPRAY 0.65%* [Sodium 1 spray BOTH NARES Q4H PRN btl 10/19/1910/30 Rx Chloride 0.65% Nasal [place]*] Spironolactone TAB* [Aldactone TAB 50 mg PO QAM tab 10/19/19 10/31/19 Rx 25 MG*] Topiramate TAB(*) [Topamax 100 mg 100 mg PO BID tab 10/19/19 10/31/19 Rx tab] Prazosin 1 mg CAP [Minipress 1 mg 10 mg PO BEDTIME 10/26/19 10/31/19 History CAP] - History Of Current Complaint Chief Complaint: EDHeadInjury Stated Complaint: HEAD INJURY PER EMS Time Seen by Provider: 10/31/19 14:00 Hx Obtained From: Patient Hx Last Menstrual Period: 07/27/19 Mechanism Of Injury: Blunt Trauma Onset/Duration: Started Hours Ago, Still Present Onset of Pain: Immediate Severity Currently: Moderate Pain Intensity: 7 Pain Scale Used: 0-10 Numeric Location of Head Injury: Frontal Aggravating Factor(s): Other: - nothing Alleviating Factor(s): Other: - nothing Associated Signs And Symptoms: Neck Pain, Headache - Allergies/Home Medications Allergies/Adverse Reactions: Allergies Allergy/AdvReac Type Severity Reaction Status Date / Time Adhesive Tape Allergy Severe Rash Verified 10/26/19 13:20 asenapine Allergy Severe Rash Verified 10/26/19 13:20 bee venom protein (honey bee) Allergy Severe Anaphylatic Verified 10/26/19 13:20 Shock lurasidone [From Latuda] Allergy Severe Vomiting Verified 10/26/19 13:20 metoclopramide [From Reglan] Allergy Severe Abdominal Verified 10/26/19 13:20 Pain paclitaxel [From Taxol] Allergy Severe Rash Verified 10/26/19 13:20 Sulfa (Sulfonamide Allergy Severe Rash Verified 10/26/19 13:20 Antibiotics) sulfamethoxazole Allergy Severe Rash Verified 10/26/19 13:20 [From Bactrim] trimethoprim [From Bactrim] Allergy Severe Hives Verified 03/05/20 13:20 nalbuphine [From Nubain] AdvReac Severe Rash Verified 10/26/19 13:20 paroxetine [From Paxil] AdvReac Severe Vomiting Verified 10/26/19 13:20 tramadol AdvReac Severe Rash Verified 10/26/19 13:20 "metal" Allergy Severe Swelling Uncoded 10/14/19 19:44 zepeda Allergy Severe Nausea And Uncoded 10/14/19 19:44 Vomiting Home Medications: Home Medications LoraTADine TAB(NF) [Claritin 10 MG TAB(NF)] 10 mg PO QAM 05/02/18 [History Confirmed 10/31/19] Melatonin 10 mg PO BEDTIME PRN 10/27/18 [History Confirmed 10/31/19] Naproxen [Naproxen 500 mg tab] 500 mg PO BID PRN 01/27/19 [History Confirmed 06/11] Acetaminop/Codeine 30 MG TAB* [Tylenol/Codeine 30 MG TAB*] 1 tab PO .4-6H PRN [History Confirmed 10/31/19] Butalbital/Acetaminophen [Butalbital-Acetaminophn 50-325] 1 tab PO Q8H PRN 04/05 [History Confirmed 10/31/19] Calcium Carbonate CHEW TAB* [Tums*] 500 mg PO TID PRN 04/05/19 [History Confirmed 10/31/19] Dicyclomine CAP* [Bentyl CAP*] 10 mg PO BID 04/05/19 [History Confirmed 10/31/19 ] Duloxetine HCl [Cymbalta] 20 mg PO BEDTIME 04/05/19 [History Confirmed 10/31/19] Duloxetine HCl [Cymbalta] 60 mg PO QAM 04/05/19 [History Confirmed 10/31/19] EPINEPHrine [Epipen 2-Amos] 0.3 mg IM ONCE PRN 04/05/19 [History Confirmed ] Erenumab-Aooe [Aimovig Autoinjector] 70 mg SUBCUT MONTHLY 04/05/19 [History Confirmed 10/31/19] Medical Marijuana 1 inh INH DAILY PRN 04/05/19 [History Confirmed 10/31/19] diphenhydrAMINE HCL [Diphenhydramine HCl] 25 - 50 mg PO .4-6H PRN 04/15/19 [ History Confirmed 10/31/19] Propylene Glycol/Peg 400/Pf [Systane 0.3-0.4% Eye Drops] 1 drop BOTH EYES BID PRN 05/09/19 [History Confirmed 10/31/19] Etonogestrel [Nexplanon] 68 mg SUBCUT ONCE 05/23/19 [History Confirmed 10/31/19] Albuterol HFA INHALER* [Ventolin HFA Inhaler*] 2 puff INH Q6H PRN mdi 10/19/19 [Rx Confirmed 10/31/19] Atorvastatin* [Lipitor 80 MG*] 80 mg PO BEDTIME tab 10/19/19 [Rx Confirmed 06/11] Benzocaine/Menthol NOBLE* [Chloraseptic NOBLE*] 1 noble MT Q2H PRN #20 lozenge [Rx Confirmed 10/31/19] Cetirizine* [ZyrTEC 10 MG TAB*] 10 mg PO QAM tab 10/19/19 [Rx Confirmed ] Dapsone TAB* 75 mg PO QAM tab 10/19/19 [Rx Confirmed 10/31/19] Docusate CAP* [Colace Cap*] 100 mg PO BID PRN cap 10/19/19 [Rx Confirmed ] Gabapentin CAP(*) [Neurontin 300 CAP(*)] 600 mg PO QAM cap 10/19/19 [Rx Confirmed 10/31/19] Gabapentin CAP(*) [Neurontin 400 mg CAP(*)] 1,200 mg PO BEDTIME cap 10/19/19 [ Rx Confirmed 10/31/19] Insulin GLARGINE(*) [Lantus 100 units/ml 10 ml VIAL (*)] 55 units SUBCUT Q24H # 1 vial 10/19/19 [Rx Confirmed 10/31/19] Metoprolol Tartrate TAB* [Lopressor TAB*] 100 mg PO BID tab 10/19/19 [Rx Confirmed 10/31/19] Mirtazapine TAB* [Remeron TAB*] 7.5 mg PO BEDTIME #14 tab 10/19/19 [Rx Confirmed 10/31/19] Moisturizing CREAM* [Hydrocerin*] 1 applic TOPICAL BID jar 10/19/19 [Rx Confirmed 10/31/19] Mycophenolate Mofetil TAB(*) [Cellcept TAB(*)] 1,000 mg PO BID tab 10/19/19 [ Rx Confirmed 10/31/19] Pantoprazole TAB * [Protonix TAB*] 40 mg PO QAM tab 10/19/19 [Rx Confirmed 06/11] SUMAtriptan TAB* [Imitrex TAB*] 100 mg PO ONCE PRN tab 10/19/19 [Rx Confirmed 10/31/19] Saline NASAL SPRAY 0.65%* [Sodium Chloride 0.65% Nasal [place]*] 1 spray BOTH NARES Q4H PRN btl 10/19/19 [Rx Confirmed 10/31/19] Spironolactone TAB* [Aldactone TAB 25 MG*] 50 mg PO QAM tab 10/19/19 [Rx Confirmed 10/31/19] Topiramate TAB(*) [Topamax 100 mg tab] 100 mg PO BID tab 10/19/19 [Rx Confirmed 10/31/19] Prazosin 1 mg CAP [Minipress 1 mg CAP] 10 mg PO BEDTIME 10/26/19 [History Confirmed 10/31/19] PMH/Surg Hx/FS Hx/Imm Hx Endocrine/Hematology History: Reports: Hx Diabetes - type 1, Hx Anemia Denies: Hx Thyroid Disease, Other Endocrine/Hematological Disorders Cardiovascular History: Reports: Hx Angina, Hx Hypercholesterolemia, Other Cardiovascular Problems/Disorders - vasculitis. tachycardia Denies: Hx Coronary Artery Disease, Hx Hypertension, Hx Myocardial Infarction , Hx Pacemaker/ICD, Hx Peripheral Vascular Disease, Hx Valvular Heart Disease Respiratory History: Reports: Hx Asthma, Hx Sleep Apnea Denies: Hx Chronic Obstructive Pulmonary Disease (COPD), Other Respiratory Problems/Disorders GI History: Reports: Hx Crohn's Disease, Hx Gall Bladder Disease, Hx Gastroesophageal Reflux Disease, Hx Gastrointestinal Bleed - Gastroparesis, Hx Irritable Bowel, Other GI Disorders - gastroparesis Denies: Hx Ulcer History: Denies: Hx Dialysis, Hx Renal Disease, Other Problems/Disorders Musculoskeletal History: Reports: Hx Arthritis - back and knees, Other Musculoskeletal History - Ulnar nerve compression Right arm Denies: Hx Osteoporosis Sensory History: Reports: Hx Contacts or Glasses Denies: Hx Legally Blind, Hx Deafness, Hx Hearing Aid Opthamlomology History: Reports: Hx Contacts or Glasses Denies: Hx Legally Blind Neurological History: Reports: Hx Headaches, Hx Migraine, Hx Nerve Disease - diabetic neuropathy Denies: Hx Seizures, Hx Transient Ischemic Attacks (TIA), Other Neuro Impairments/Disorders Psychiatric History: Reports: Hx Anxiety, Hx Depression, Hx Panic Disorder - PTSD, Hx Post Traumatic Stress Disorder, Hx Inpatient Treatment, Hx Community Mental Health Tx, Hx Bipolar Disorder, Hx Suicide Attempt, Other Psychiatric Issues/Disorders - Borderline Personality Disorder Denies: Hx Attention Deficit Hyperactivity Disorder, Hx Eating Disorder, Hx Schizophrenia, Hx of Violent Episodes Against Others - Cancer History Hx Chemotherapy: No - Surgical History Surgery Procedure, Year, and Place: Cholecystectomy [facility] in [place] Cardiac Catherterization-NO STENT [facility] in [place] 2005, 2016 [facility] [place],. ulnar nerve release 2017, [facility] – [place]. 04/19/19 - RT SHOULDER - ( NO EXTERNAL METAL) Hx Anesthesia Reactions: No - Immunization History Date of Tetanus Vaccine: utd Date of Influenza Vaccine: fall 2016 Infectious Disease History: No Infectious Disease History: Denies: Hx Hepatitis, Hx Human Immunodeficiency Virus (HIV), Hx of Known/ Suspected MRSA, Traveled Outside the [place] in Last 30 Days - Family History Known Family History: Positive: Cardiac Disease, Diabetes, Other - blod clots Negative: Hypertension - Social History Alcohol Use: Occasionally Alcohol Amount: monthly Hx Substance Use: Yes Substance Use Type: Reports: None Substance Use Comment - Amount & Last Used: medical marijuana for vasculitis Hx Tobacco Use: Yes Smoking Status (MU): Former Smoker Type: Cigarettes Amount Used/How Often: 2 cigarettes/day Length of Time of Smoking/Using Tobacco: 4 CIG/DAY 2 YEARS Have You Smoked in the Last Year: Yes Review of Systems Negative: Fever Negative: Shortness Of Breath Negative: Vomiting, Nausea Musculoskeletal: Other - POSITIVE: neck pain Positive: Headache All Other Systems Reviewed And Are Negative: Yes Physical Exam - Summary Physical Exam Summary: VITAL SIGNS: Reviewed. GENERAL: Patient is a well-developed and obese female. Patient is not in any acute respiratory distress. HEAD AND FACE: Bruising on forehead. EYES: PERRLA, EOMI x 2, No injected conjunctiva, no nystagmus. EARS: Hearing grossly intact. Ear canals and tympanic membranes are within normal limits. MOUTH: Oropharynx within normal limits. NECK: Supple, trachea is midline, no adenopathy, no JVD, no carotid bruit. Patient with C-spine tenderness. CHEST: Symmetric, no tenderness at palpation LUNGS: Clear to auscultation bilaterally. No wheezing or crackles. CVS: Regular rate and rhythm, S1 and S2 present, no murmurs or gallops appreciated. ABDOMEN: Soft, non-tender. No signs of distention. No rebound, no guarding, and no masses palpated. Bowel sounds are normal. EXTREMITIES: FROM in all major joints, no edema, no cyanosis or clubbing. NEURO: Alert and oriented x 3. No acute neurological deficits. Speech is normal and follows commands. SKIN: Dry and warm. Bruising in forehead. GCS: 15 Triage Information Reviewed: Yes Vital Signs On Initial Exam: Initial Vitals Temp Pulse Resp BP Pulse Ox 97.9 F 99 14 105/54 95 10/31/19 11:50 10/31/19 11:50 10/31/19 11:50 10/31/19 11:50 10/31/19 11:50 Vital Signs Reviewed: Yes Procedures - Sedation Patient Received Moderate/Deep Sedation with Procedure: No Diagnostics - Vital Signs Vital Signs Temp Pulse Resp BP Pulse Ox 10/31/19 13:42 97.8 F 78 16 101/61 94 10/31/19 11:50 97.9 F 99 14 105/54 95 - Laboratory Lab Statement: Any lab studies that have been ordered have been reviewed, and results considered in the medical decision making process. - CT Brain CT CT Interpretation Completed By: Radiologist Summary of CT Findings: IMPRESSION: 1. No acute intracranial abnormality. 2. Left-sided sinusitis. Dr. Bernal has reviewed this report. Cervical spine CT CT Interpretation Completed By: Radiologist Summary of CT Findings: IMPRESSION: 1. Multilevel degenerative changes of the cervical spine without evidence of an acute fracture or dislocation. 2. Incidentally noted is a deep left lobe thyroid nodule that can be better characterized with nonemergent thyroid ultrasound. Dr. Bernal has reviewed this report. Re-Evaluation - Re-Evaluation First Eval Re-Evaluation Time: 17:31 Comment: Reviewed results with patient. She will be discharged home with follow up from PCP for thyroid nodule incidentally found. Head Injury Course/Dx Assessment/Plan: This patient is a 39 y/o female presenting to [facility] via EMS for headache s/p head injury this morning at 0600. Patient reports she got up this morning at 0600 to use the bathroom when she tripped and fell forward hitting her frontal head on the door jam. She notes she takes Ambien at night and took this last night. She is unsure if she had LOC. Patient went back to sleep afterwards. She describes a frontal headache and neck pain posteriorly. Denies fever, nausea, vomiting, shortness of breath. Patient is not on anticoagulants. Head CT IMPRESSION: 1. No acute intracranial abnormality. 2. Left-sided sinusitis. C spine CT IMPRESSION: 1. MULTILEVEL DEGENERATIVE CHANGES OF THE CERVICAL SPINE WITHOUT EVIDENCE OF AN ACUTE FRACTURE OR DISLOCATION. 2. INCIDENTALLY NOTED IS A DEEP LEFT LOBE THYROID NODULE THAT CAN BE BETTER CHARACTERIZED WITH NONEMERGENT THYROID ULTRASOUND. At this point, I discussed all the findings and test results with the patient. Patient was instructed to return to the emergency room immediately if any of the symptoms return or worsen. Plan of care was discussed with the patient and the patient understands and agrees. All questions were answered at patient satisfaction. Patient understands and agrees. Neurological exam before discharge: Patient is alert and oriented x 3. No acute neurological deficits. Patient's vital signs are stable. Patient is to follow up with her PCP in the next 2 3 days. They understand and agree. The plan of care was discussed with the patient and the patient understands and agrees with the plan of care. All questions were answered at patient satisfaction. There were no further complaints or concerns. - Diagnoses Differential Diagnosis/HQI/PQRI: Cerebral Contusion, Cervical Sprain, Contusion , Intracranial Bleed Provider Diagnoses: Headache, Head contusion, Neck pain, Thyroid nodule Discharge ED - Sign-Out/Discharge Documenting (check all that apply): Patient Departure - Discharge home - Discharge Plan Condition: Stable Disposition: HOME Patient Education Materials: Thyroid Nodules (ED), General Headache (ED), Neck Pain (ED) Referrals: Kimberlyn Dhillon MD [Primary Care Provider] - Additional Instructions: FOLLOW UP WITH YOUR PRIMARY CARE PROVIDER IN 2-3 DAYS FOR LEFT LOBE THYROID NODULE INCIDENTALLY FOUND IN CT. RETURN TO THE ED FOR ANY NEW OR WORSENING SYMPTOMS. - Billing Disposition and Condition Condition: STABLE Disposition: Home - Attestation Statements Document Initiated by Scribe: Yes Documenting Scribe: Ashia Levin Provider For Whom Scribe is Documenting (Include Credential): Ralph Bernal MD Scribe Attestation: I, Ashia Levin, scribed for Ralph Bernal MD on 11/04/19 at 1757. Scribe Documentation Reviewed: Yes Provider Attestation: The documentation as recorded by the scribe, Ashia Levin accurately reflects the service I personally performed and the decisions made by me, Ralph Bernal MD Status of Scribe Document: Viewed
[2019-10-31 18:18] VITALS: BP 123/103
== END 2019-10-31 17:45 | disposition home or self-care (01) ==
LOC: ED 11:44
DX: S00.93XA Contusion of unspecified part of head, initial encounter (principal); R51 Headache; E10.8 Type 1 diabetes mellitus with unspecified complications; M54.2 Cervicalgia; E04.1 Nontoxic single thyroid nodule; W01.0XXA Fall on same level from slipping, tripping and stumbling without subsequent striking against object, initial encounter; Y92.9 Unspecified place or not applicable; E78.00 Pure hypercholesterolemia, unspecified; Z87.891 Personal history of nicotine dependence; Z86.79 Personal history of other diseases of the circulatory system
CPT/HCPCS: 36415; 70450; 72125; 84702; 99282

== ENCOUNTER 2020-04-11 16:10 | Inpatient (IN) ==
[2020-04-11] MEDS ORDERED: Diazepam INJ CARPUJECT 5 MG/ML IM ONE (16:41)
[2020-04-11 17:07] LABS: Hematocrit 39 % (35-47); Hemoglobin 13.1 g/dL (12.0-16.0); Mean Corpuscular HGB Conc 34 g/dL (31-36); Mean Corpuscular Hemoglobin 29 pg (27-31); Mean Corpuscular Volume 88 fL (80-97); Mean Platelet Volume 6.7 fL (7.4-10.4); Platelet Count 495 10^3/uL (150-450); Red Blood Count 4.44 10^6 /uL (3.70-4.87); Red Cell Distribution Width 13 % (10-15); White Blood Count 17.2 10^3/uL (3.5-10.8)
[2020-04-11 17:15] LABS: ABS Basophils 0.1 10^3/ul (0-0.2); ABS Eosinophils 0.1 10^3/ul (0-0.6); ABS Lymphocytes 6.9 10^3/ul (1.0-4.8); ABS Monocytes 1.4 10^3/ul (0-0.8); ABS Neutrophils 8.8 10^3/ul (1.5-7.7); Eosinophil % 0.7 %; Lymphocyte % 39.8 %
[2020-04-11 17:24] LABS: ALT 10 U/L (7-52); AST 11 U/L (13-39); Albumin/Globulin Ratio 0.9 (1-3); Alkaline Phosphatase 124 U/L (34-104); Anion Gap 13 mmol/L (2-11); BUN/Creatinine Ratio 16.9 (8-20); Blood Urea Nitrogen 13 mg/dL (6-24); CO2 Carbon Dioxide 20 mmol/L (22-32); Calcium 9.8 mg/dL (8.6-10.3); Chloride 93 mmol/L (101-111); EGFR African American 102.1 (>60); EGFR Non-African American 84.4 (>60); Globulin 4.7 g/dL (2-4); Glucose 485 mg/dL (70-100); Potassium 4.1 mmol/L (3.5-5.0); Sodium 126 mmol/L (135-145); Total Protein 8.7 g/dL (6.4-8.9)
[2020-04-11 17:31] LABS: HCG Pregnancy 0.84 mIU/mL
[2020-04-11 17:44] LABS: Acetaminophen < 15 mcg/mL; Alcohol, S < 10 mg/dL (<10); Salicylate < 2.50 mg/dL (<30)
[2020-04-11 17:58] LABS: TSH Ultra Thyroid Stim Horm 0.62 mcIU/mL (0.34-5.60)
[2020-04-11] MEDS ORDERED: Lactated Ringers 1000 ml BAG 1,000 ML IV ONE (18:08)
[2020-04-11 18:53] LABS: Urine Appearance Clear; Urine Bilirubin Negative (Negative); Urine Blood Negative (Negative); Urine Color Yellow; Urine Glucose 3+(>=500 mg/dL) (Negative); Urine Ketones Trace (Negative); Urine Nitrite Negative (Negative); Urine Protein Negative (Negative); Urine Specific Gravity 1.018 (1.010-1.030); Urine Urobilinogen Negative (Negative)
[2020-04-11] MEDS ORDERED: Dextrose 50% Syringe 50 ml 25 GM/50 ML SYRINGE IV PUSH PRN ×2 (19:07→23:37)
[2020-04-11 19:13] LABS: Urine Benzodiazepine Screen None Detected (None Detect); Urine Cannabinoids Screen None Detected (None Detect); Urine Opiates Screen None Detected (None Detect)
[2020-04-11] MEDS ORDERED: Al Hydrox/Mg Hydrox/Simet LIQ 30 ML UDC PO PRN (21:58)
[2020-04-11] MEDS ORDERED: diPHENhydraMINE 25 mg TAB PO PRN (22:16)
[2020-04-11] MEDS ORDERED: Albuterol HFA INHALER 8 gm MDI INH PRN (22:45)
[2020-04-11] MEDS: Insulin GLARGINE 100 un/ml 10 ml VIAL SUBCUT SCH (23:57)
[2020-04-11] MEDS: DULoxetine DR 20 mg CAP PO SCH (23:59)
[2020-04-12 07:44] LABS: HDL Cholesterol 28.1 mg/dL
[2020-04-12] MEDS: DULoxetine DR 60 mg CAP PO SCH (08:49)
[2020-04-12] MEDS: Vitamin THERAPEUTIC TAB PO SCH (08:52)
[2020-04-12] MEDS: Acetaminop/Codeine 300mg/30mg TAB PO PRN ×2 (15:16→21:33)
[2020-04-12] MEDS: DULoxetine DR 20 mg CAP PO SCH (20:14)
[2020-04-12] MEDS: Insulin GLARGINE 100 un/ml 10 ml VIAL SUBCUT SCH (20:27)
[2020-04-13] MEDS: Saline NASAL SPRAY 0.65% BTL BOTH NARES PRN (07:39)
[2020-04-13] MEDS: Acetaminop/Codeine 300mg/30mg TAB PO PRN ×3 (07:40→23:07)
[2020-04-13] MEDS: Vitamin THERAPEUTIC TAB PO SCH (09:14)
[2020-04-13] MEDS: DULoxetine DR 60 mg CAP PO SCH (09:14)
[2020-04-13] MEDS: Insulin GLARGINE 100 un/ml 10 ml VIAL SUBCUT SCH (20:49)
[2020-04-13] MEDS: DULoxetine DR 20 mg CAP PO SCH (20:55)
[2020-04-14] MEDS: Acetaminop/Codeine 300mg/30mg TAB PO PRN ×3 (06:43→19:06)
[2020-04-14] MEDS: DULoxetine DR 60 mg CAP PO SCH (09:05)
[2020-04-14] MEDS: Vitamin THERAPEUTIC TAB PO SCH (09:06)
[2020-04-14] MEDS: DULoxetine DR 20 mg CAP PO SCH (20:15)
[2020-04-14] MEDS: Insulin GLARGINE 100 un/ml 10 ml VIAL SUBCUT SCH (20:26)
[2020-04-15] MEDS: Saline NASAL SPRAY 0.65% BTL BOTH NARES PRN (02:01)
[2020-04-15] MEDS: Acetaminop/Codeine 300mg/30mg TAB PO PRN ×4 (02:08→21:40)
[2020-04-15] MEDS: DULoxetine DR 60 mg CAP PO SCH (09:04)
[2020-04-15] MEDS: Vitamin THERAPEUTIC TAB PO SCH (09:04)
[2020-04-15] MEDS: Insulin GLARGINE 100 un/ml 10 ml VIAL SUBCUT SCH (20:49)
[2020-04-15] MEDS: DULoxetine DR 20 mg CAP PO SCH (20:54)
[2020-04-16] MEDS ORDERED: Magnesium CITRATE LIQ 300 ML BTL PO ONE (07:00)
[2020-04-16] MEDS: Saline NASAL SPRAY 0.65% BTL BOTH NARES PRN (07:07)
[2020-04-16] MEDS: Acetaminop/Codeine 300mg/30mg TAB PO PRN ×2 (07:10→18:20)
[2020-04-16] MEDS ORDERED: ERENUMAB SUBCUT SCH (08:00)
[2020-04-16] MEDS: DULoxetine DR 60 mg CAP PO SCH (08:39)
[2020-04-16] MEDS: Vitamin THERAPEUTIC TAB PO SCH (08:41)
[2020-04-16] MEDS: Insulin GLARGINE 100 un/ml 10 ml VIAL SUBCUT SCH (21:09)
[2020-04-16] MEDS: DULoxetine DR 20 mg CAP PO SCH (21:13)
[2020-04-17] MEDS: Acetaminop/Codeine 300mg/30mg TAB PO PRN ×2 (06:28→19:47)
[2020-04-17] MEDS: DULoxetine DR 60 mg CAP PO SCH (09:26)
[2020-04-17] MEDS: Vitamin THERAPEUTIC TAB PO SCH (09:30)
[2020-04-17 11:19] LABS: Hematocrit 32 % (35-47); Hemoglobin 10.8 g/dL (12.0-16.0); Mean Corpuscular HGB Conc 34 g/dL (31-36); Mean Corpuscular Hemoglobin 30 pg (27-31); Mean Corpuscular Volume 89 fL (80-97); Mean Platelet Volume 6.9 fL (7.4-10.4); Platelet Count 321 10^3/uL (150-450); Red Cell Distribution Width 14 % (10-15); White Blood Count 12.5 10^3/uL (3.5-10.8)
[2020-04-17 11:32] LABS: Albumin 3.3 g/dL (3.2-5.2); Albumin/Globulin Ratio 0.8 (1-3); BUN/Creatinine Ratio 20.9 (8-20); Calcium 9.3 mg/dL (8.6-10.3); EGFR African American 119.8 (>60); Globulin 4.1 g/dL (2-4); Potassium 4.6 mmol/L (3.5-5.0); Total Bilirubin 0.3 mg/dL (0.2-1.0); Total Protein 7.4 g/dL (6.4-8.9)
[2020-04-17 12:08] LABS: HIV 4th Generation Nonreactive (Nonreactive)
[2020-04-17 12:12] LABS: ABS Basophils 0.1 10^3/ul (0-0.2); ABS Eosinophils 0.2 10^3/ul (0-0.6); ABS Lymphocytes 6.2 10^3/ul (1.0-4.8); ABS Monocytes 1.1 10^3/ul (0-0.8); Eosinophil % 1.5 %; Lymphocyte % 49.3 %; Nucleated Red Blood Cells % 0.1
[2020-04-17 12:19] LABS: Hepatitis B Surface Antigen Nonreactive (Nonreactive)
[2020-04-17 12:24] LABS: Hepatitis A Ab IgM Negative (Negative)
[2020-04-17 12:33] LABS: Hepatitis B Core IgM Nonreactive (Nonreactive)
[2020-04-17 12:36] LABS: Hepatitis C Antibody Negative (Negative)
[2020-04-17] MEDS: Dextran 70/Hypromellose Tears Eye Drops 15 ml BTL (for Artificials Tears) BOTH EYES PRN (19:50)
[2020-04-17] MEDS: Insulin GLARGINE 100 un/ml 10 ml VIAL SUBCUT SCH (20:13)
[2020-04-17] MEDS: DULoxetine DR 20 mg CAP PO SCH (20:18)
[2020-04-18] MEDS: Acetaminop/Codeine 300mg/30mg TAB PO PRN ×2 (06:14→19:40)
[2020-04-18] MEDS: Saline NASAL SPRAY 0.65% BTL BOTH NARES PRN (06:16)
[2020-04-18] MEDS: Vitamin THERAPEUTIC TAB PO SCH (09:11)
[2020-04-18] MEDS: DULoxetine DR 60 mg CAP PO SCH (09:13)
[2020-04-18] MEDS: Dextran 70/Hypromellose Tears Eye Drops 15 ml BTL (for Artificials Tears) BOTH EYES PRN (10:56)
[2020-04-18 12:43] LABS: Chlamydia trachomatis NAA Negative (Negative); Neisseria gonorrhoeae (GC) NAA Negative (Negative)
[2020-04-18] MEDS: Insulin GLARGINE 100 un/ml 10 ml VIAL SUBCUT SCH (22:11)
[2020-04-18] MEDS: DULoxetine DR 20 mg CAP PO SCH (22:18)
[2020-04-19] MEDS: DULoxetine DR 60 mg CAP PO SCH (09:03)
[2020-04-19] MEDS: Vitamin THERAPEUTIC TAB PO SCH (09:03)
[2020-04-19] MEDS: Insulin GLARGINE 100 un/ml 10 ml VIAL SUBCUT SCH (21:00)
[2020-04-19] MEDS: DULoxetine DR 20 mg CAP PO SCH (21:02)
[2020-04-19] MEDS: Acetaminop/Codeine 300mg/30mg TAB PO PRN (21:08)
[2020-04-20] MEDS: Vitamin THERAPEUTIC TAB PO SCH (08:58)
[2020-04-20] MEDS: DULoxetine DR 60 mg CAP PO SCH (08:58)
[2020-04-20] MEDS: Acetaminop/Codeine 300mg/30mg TAB PO PRN ×2 (09:05→20:07)
[2020-04-20] MEDS: DULoxetine DR 20 mg CAP PO SCH (22:04)
[2020-04-20] MEDS: Insulin GLARGINE 100 un/ml 10 ml VIAL SUBCUT SCH (22:16)
[2020-04-21] MEDS: DULoxetine DR 60 mg CAP PO SCH (10:27)
[2020-04-21] MEDS: Vitamin THERAPEUTIC TAB PO SCH (10:28)
[2020-04-21] MEDS: Acetaminop/Codeine 300mg/30mg TAB PO PRN ×2 (10:28→18:43)
[2020-04-21] MEDS: Insulin GLARGINE 100 un/ml 10 ml VIAL SUBCUT SCH (20:26)
[2020-04-21] MEDS: DULoxetine DR 20 mg CAP PO SCH (20:29)
[2020-04-22] MEDS: Acetaminop/Codeine 300mg/30mg TAB PO PRN ×2 (04:15→10:23)
[2020-04-22 08:40] VITALS: BP 96/67
[2020-04-22] MEDS: DULoxetine DR 60 mg CAP PO SCH (10:20)
[2020-04-22] MEDS: Vitamin THERAPEUTIC TAB PO SCH (10:21)
== END 2020-04-22 12:50 | disposition home or self-care (01) ==
LOC: ED 16:10 → BSU 21:14
PROVIDERS: ADMIT Psychiatry & Neurology Psychiatry; ATTEND Psychiatry & Neurology Psychiatry